=== PATIENT | female | born 1980 | race Caucasian/White ===

== ENCOUNTER 2020-04-18 13:44 | Outpatient (REF) | payer MEDICAID, SELFPAY ==
--- NOTE | 2020-04-18 | MM_ITS ---
EXAMINATION: MM DIAGNOSTIC DIGITAL BREAST TOMOSYNTHESIS, RIGHT CLINICAL INFORMATION: Right breast calcifications The lifetime risk of breast cancer based on the Tyrer-Cuzick Model is 10.8%. COMPARISON: Mammography: October 14, 2008 and studies dating back to September 26, 2016 TECHNIQUE: Digital breast tomosynthesis is performed in both the craniocaudal and mediolateral oblique views along with computer-aided detection (CAD). Synthesized 2D images are generated from the tomosynthesis. Spot magnification views performed in craniocaudal and 90 degree mediolateral views. FINDINGS: The breasts are heterogeneously dense, which may obscure small masses (ACR BI-RADS breast composition Category c). There is a stable parenchymal pattern within the right breast. There is a stable appearance of the calcifications mid breast 12:00 position. Results are provided to the patient at time of visit by the technologist. MM/MM tomosynthesis diagnostic RT IMPRESSION: There are no significant changes from prior study. ASSESSMENT: BI-RADS 3: Probably Benign RECOMMENDATION: Diagnostic mammography in 6 months. This patient's information was entered into a reminder system with a target due date for their next mammogram.
== END 2020-04-18 13:45 | disposition home or self-care (01) ==
LOC: HO.MAMMO 13:44
PROVIDERS: Visit Provider Internal Medicine
DX: R92.1 Mammographic calcification found on diagnostic imaging of breast (principal)
CPT/HCPCS: 77061; 77065

== ENCOUNTER 2020-06-06 10:46 | Outpatient (REF) | payer MEDICAID, SELFPAY | END 2020-06-06 10:47 | disposition home or self-care (01) | LOC: HO.LAB 10:46 | PROVIDERS: Visit Provider Internal Medicine | DX: Z20.828 Contact with and (suspected) exposure to other viral communicable diseases (principal) | CPT/HCPCS: C9803; U0003 ==

== ENCOUNTER → 2020-07-06 10:16 | Outpatient (BNVA) | payer MEDICAID, SELFPAY | PROVIDERS: PCP Internal Medicine; Visit Provider Physician Assistant | DX: Z01.818 Encounter for other preprocedural examination (principal); E66.01 Morbid (severe) obesity due to excess calories; E89.2 Postprocedural hypoparathyroidism; F41.9 Anxiety disorder, unspecified; F32.9 Major depressive disorder, single episode, unspecified; K29.70 Gastritis, unspecified, without bleeding; Z68.41 Body mass index [BMI] 40.0-44.9, adult; Z86.69 Personal history of other diseases of the nervous system and sense organs; Z98.890 Other specified postprocedural states | CPT/HCPCS: 99202 ==

== ENCOUNTER → 2020-07-08 08:27 | Outpatient (BNVA) | payer MEDICAID, SELFPAY | PROVIDERS: PCP Internal Medicine; Visit Provider Surgery ==

== ENCOUNTER 2020-07-13 12:13 | Outpatient (REF) | payer MEDICAID, SELFPAY ==
--- NOTE | 2020-07-13 12:40 | XR_ITS ---
EXAMINATION: XR CHEST CLINICAL INFORMATION: Obesity COMPARISON: None TECHNIQUE: 2 views of the chest were obtained. FINDINGS: No significant abnormality is noted involving the heart, lungs, mediastinum, bony thorax or soft tissues. XR/XR chest 2V IMPRESSION: Unremarkable examination.
--- NOTE | 2020-07-13 13:39 | ECG_ITS ---
Test Reason : PREOP Blood Pressure : / mmHG Vent. Rate : 060 BPM Atrial Rate : 060 BPM P-R Int : 150 ms QRS Dur : 090 ms QT Int : 428 ms P-R-T Axes : 060 026 025 degrees QTc Int : 428 ms Normal sinus rhythm Normal ECG No previous ECGs available Referred By: Desiree Harrison Electronically Signed By:LEANDER SOUSA MD
[2020-07-13 14:02] LABS: MANUAL DIFF FLAG NO
[2020-07-13 14:19] LABS: Basophils Percent Auto 0.5 % (0-2); Eosinophils Absolute Auto 0.1 X10*3/uL (0.0-0.4); Eosinophils Percent Auto 0.8 % (0-4); Hematocrit 41.3 % (37-47); Imm Gran Abs Auto 0.01 X10*3/uL (0.00-0.03); Imm Gran Pct Auto 0.2 % (0.0-0.4); Lymphocytes Absolute Auto 1.9 X10*3/uL (1.2-4.9); Lymphocytes Percent Auto 29.1 % (20-40); Mean Corpuscular HGB Conc 33.9 g/dl (31.0-35.0); Mean Corpuscular Hemoglobin 30.3 pg (27.0-33.0); Mean Corpuscular Volume 89.4 fL (80-98); Mean Platelet Volume 10.4 fL (9.4-12.3); Monocytes Absolute Auto 0.6 X10*3/uL (0.1-1.2); Monocytes Percent Auto 9.2 % (2-11); Neutrophils Absolute Auto 3.9 X10*3/uL (2.0-8.3); Neutrophils Percent Auto 60.2 % (45-73); Platelet Count 319 X10*3/uL (160-400); Red Blood Count 4.62 X10*6/uL (4.20-5.50); Red Cell Distribution Width 11.6 % (11.0-16.0); White Blood Count 6.4 X10*3/uL (4.8-10.8)
[2020-07-13 14:21] LABS: Estimated Average Glucose 94 mg/dL; Hemoglobin A1c % 4.9 %
[2020-07-13 14:38] LABS: Alanine Aminotransferase 25 U/L (0-31); Albumin Level 4.6 g/dL (3.5-5.0); Alkaline Phosphatase 75 U/L (39-117); Anion Gap 13 (12-20); Aspartate Amino Transferase 23 U/L (5-31); Bilirubin Total 0.6 mg/dL (0.0-1.0); Blood Urea Nitrogen 12 mg/dL (9-16); C Reactive Protein 0.37 mg/dL (< or = 0.50); Calcium 9.7 mg/dL (8.4-10.2); Carbon Dioxide 27 mmol/L (22-29); Chloride 105 mmol/L (96-108); Cholesterol 179 mg/dL; Estimated Glomerular Filt Rate > 60; Glucose Random 81 mg/dL (60-115); HDL Cholesterol 45 mg/dL; LDL Cholesterol Calculated 125 mg/dl; Sodium 141 mmol/L (135-145); Total Protein 7.5 g/dL (6.5-8.0); Triglycerides 49 mg/dL
[2020-07-13 14:58] LABS: Vitamin B12 313 pg/mL (200-900)
[2020-07-13 15:00] LABS: Ferritin 142 ng/mL (10-122); TSH reflex Free T4 0.71 uIU/mL (0.32-4.0); Vitamin D 25-OH Total 17.5 ng/mL (>30)
[2020-07-14 09:57] LABS: Insulin Level Total 3.8 uIU/mL
[2020-07-14 12:47] LABS: Calcium (PTHI) 9.9 mg/dL (8.6-10.2); PTHI 60 pg/mL (14-64)
[2020-07-15 23:52] LABS: Zinc 87 mcg/dL (60-130)
[2020-07-16 23:22] LABS: Vitamin A 30 mcg/dL (38-98)
[2020-07-17 12:57] LABS: Vitamin B1 9 nmol/L (8-30)
== END 2020-07-13 12:14 | disposition home or self-care (01) ==
LOC: HO.LAB 12:13
PROVIDERS: PCP Internal Medicine; Visit Provider Physician Assistant
DX: Z01.818 Encounter for other preprocedural examination (principal); E66.01 Morbid (severe) obesity due to excess calories; Z68.41 Body mass index [BMI] 40.0-44.9, adult
CPT/HCPCS: 36415; 71046; 80053; 80061; 82306; 82607; 82728; 83036; 83525; 83970; 84425; 84443; 84590; 84630; 85025; 86140; 93005

== ENCOUNTER 2020-07-19 09:45 | Outpatient (REF) | payer MEDICAID, SELFPAY ==
--- NOTE | ~2020-07-19 | FL_ITS ---
EXAMINATION: XR GI SERIES CLINICAL INFORMATION: Preop evaluation. Obesity. COMPARISON: None. TECHNIQUE: Routine upper GI air-contrast study was performed. FINDINGS: Following oral administration of thick barium and effervescent granules, there is normal propagation of bolus from the oral cavity through the pharynx and esophagus and into the stomach without any evidence of obstruction, narrowing or stricture. The course, caliber and peristalsis in the stomach, duodenal bulb and sweep are normal. There is barium flocculation and increased secretions in the stomach from gastric acidity. No gastric erosions or duodenal ulceration seen. There is mild gastroesophageal reflux without hiatal hernia in supine lying position. FLUOROSCOPY TIME: 1.0 minutes. DOSE AREA PRODUCT: 43.16 uGy-m2 (microgray-meter squared). FL/FL upper GI series IMPRESSION: Mild gastroesophageal reflux without hiatal hernia. Suspect gastric acidity.
--- NOTE | ~2020-07-19 | US_ITS ---
EXAMINATION: US COMPLETE ABDOMEN WITH LIVER ELASTOGRAPHY CLINICAL INFORMATION: Bariatric service evaluation. Z01.818. COMPARISON: Noncontrast CT abdomen and pelvis 04/04/2018. TECHNIQUE: Real-time imaging of the abdominal viscera. Noninvasive ultrasound liver fibrosis assessment is performed using Hellen ElastPQ point quantification shear wave elastography (pSWE) with a C5-2 MHz transducer. Multiple elastography samples are obtained. FINDINGS: PANCREAS: The visualized pancreas is unremarkable. The body and tail are partly obscured by bowel gas and not completely imaged. There is no pancreatic ductal distention in the visualized portion. ABDOMINAL AORTA: The proximal, middle, and distal aortic segments are normal in caliber. INFERIOR VENA CAVA: Visualized portions are normal. LIVER: Normal. The liver demonstrates normal size, contour and echogenicity. No focal lesion or intrahepatic biliary duct dilatation. The right lobe measures 15.7 cm in length. The left lobe measures 10.1 cm in length. Portal flow is towards the liver (hepatopetal). Shear wave liver elastography median stiffness is 1.16 m/s (reference: normal median stiffness is 1.3 m/s or less). IQR/median stiffness to assess sampling precision is 0.22 (reference: optimal IQR/median stiffness is 0.15 or less). GALLBLADDER: Normal. The gallbladder is physiologically distended without evidence of stones, sludge, polyps, wall thickening or pericholecystic fluid. COMMON BILE DUCT: Normal in caliber measuring 0.3 cm in diameter. RIGHT KIDNEY: Normal. No hydronephrosis. No renal calculi or focal parenchymal lesions. The kidney measures 11.2 cm in maximum dimension. LEFT KIDNEY: Normal. No hydronephrosis. No renal calculi or focal parenchymal lesions. The kidney measures 11.3 cm in maximum dimension. SPLEEN: Normal. The spleen measures 10.1 cm in maximum dimension. FREE FLUID: None. US/US abdomen comp w elastography IMPRESSION: 1. Liver normal in size and echogenicity. 2. Liver elastography: Although measurements suggest a high probability of normal liver stiffness, there is statistical variability of the sampling which decreases accuracy. 3. No cholelithiasis or ductal dilatation. 4. Bowel gas obscures portions pancreatic body and tail.
== END 2020-07-19 09:46 | disposition home or self-care (01) ==
LOC: HO.US 09:45
PROVIDERS: PCP Internal Medicine; Visit Provider Surgery
DX: Z01.818 Encounter for other preprocedural examination (principal); E66.01 Morbid (severe) obesity due to excess calories; Z68.41 Body mass index [BMI] 40.0-44.9, adult; K21.9 Gastro-esophageal reflux disease without esophagitis
CPT/HCPCS: 74240; 76705; 76981

== ENCOUNTER 2020-07-22 14:06 | Outpatient (REF) | payer MEDICAID, SELFPAY ==
[2020-07-23 13:51] LABS: H Pylori Breath Test NOT DETECTED (NOT DETECTED)
== END 2020-07-22 14:07 | disposition home or self-care (01) ==
LOC: HO.LNP 14:06
PROVIDERS: PCP Internal Medicine; Visit Provider Surgery
DX: Z11.0 Encounter for screening for intestinal infectious diseases (principal)
CPT/HCPCS: 83013; 99211

== ENCOUNTER → 2020-08-03 08:24 | Outpatient (BNVA) | payer MEDICAID, SELFPAY | PROVIDERS: PCP Internal Medicine; Visit Provider Surgery ==

== ENCOUNTER 2020-08-19 12:25 | Outpatient (REF) | payer MEDICAID, SELFPAY | END 2020-08-19 12:26 | disposition home or self-care (01) | LOC: HO.LAB 12:25 | PROVIDERS: Visit Provider Internal Medicine | DX: Z20.822 Contact with and (suspected) exposure to COVID-19 (principal) | CPT/HCPCS: 36415; C9803; U0003; U0005 ==

== ENCOUNTER → 2020-08-22 08:20 | Outpatient (BNVA) | payer MEDICAID, SELFPAY | PROVIDERS: PCP Internal Medicine; Visit Provider Surgery ==

== ENCOUNTER 2020-08-24 13:06 | Outpatient (REF) | payer MEDICAID, SELFPAY | END 2020-08-24 13:07 | disposition home or self-care (01) | LOC: HO.LAB 13:06 | PROVIDERS: Visit Provider Internal Medicine | DX: Z20.822 Contact with and (suspected) exposure to COVID-19 (principal) | CPT/HCPCS: 36415; C9803; U0003; U0005 ==

== ENCOUNTER → 2020-09-14 08:14 | Outpatient (BNVA) | payer MEDICAID, SELFPAY | PROVIDERS: PCP Internal Medicine; Visit Provider Surgery ==

== ENCOUNTER → 2020-10-10 08:22 | Outpatient (BNVA) | payer MEDICAID, SELFPAY | PROVIDERS: PCP Internal Medicine; Visit Provider Surgery ==

== ENCOUNTER → 2020-10-31 08:17 | Outpatient (BNVA) | payer MEDICAID, SELFPAY | PROVIDERS: PCP Internal Medicine; Visit Provider Surgery | DX: E66.9 Obesity, unspecified (principal); Z68.36 Body mass index [BMI] 36.0-36.9, adult | CPT/HCPCS: 97802 ==

== ENCOUNTER → 2020-11-16 08:15 | Outpatient (BNVA) | payer MEDICAID, SELFPAY | PROVIDERS: PCP Internal Medicine; Visit Provider Dietitian, Registered | DX: E66.9 Obesity, unspecified (principal); Z68.36 Body mass index [BMI] 36.0-36.9, adult | CPT/HCPCS: 97803 ==

== ENCOUNTER → 2020-11-24 07:51 | Outpatient (BNVA) | payer MEDICAID, SELFPAY | PROVIDERS: PCP Internal Medicine; Visit Provider Surgery ==

== ENCOUNTER → 2020-12-09 09:00 | Outpatient (BNVA) | payer MEDICAID, SELFPAY | PROVIDERS: PCP Internal Medicine; Visit Provider Physician Assistant ==

== ENCOUNTER → 2020-12-12 07:51 | Outpatient (BNVA) | payer MEDICAID, SELFPAY | PROVIDERS: PCP Internal Medicine; Visit Provider Surgery | DX: E66.9 Obesity, unspecified (principal); K29.70 Gastritis, unspecified, without bleeding; R11.0 Nausea; Z01.818 Encounter for other preprocedural examination ==

== ENCOUNTER 2020-12-15 11:11 | Outpatient (REF) | payer MEDICAID, SELFPAY ==
[2020-12-15 12:52] LABS: MANUAL DIFF FLAG NO
[2020-12-15 12:57] LABS: Basophils Percent Auto 0.4 % (0-2); Eosinophils Absolute Auto 0.1 X10*3/uL (0.0-0.4); Eosinophils Percent Auto 1.2 % (0-4); Hematocrit 40.9 % (37-47); Hemoglobin 13.8 g/dl (12.0-16.0); Imm Gran Abs Auto 0.02 X10*3/uL (0.00-0.03); Imm Gran Pct Auto 0.4 % (0.0-0.4); Lymphocytes Absolute Auto 1.9 X10*3/uL (1.2-4.9); Lymphocytes Percent Auto 33.7 % (20-40); Mean Corpuscular HGB Conc 33.7 g/dl (31.0-35.0); Mean Corpuscular Hemoglobin 30.5 pg (27.0-33.0); Mean Corpuscular Volume 90.3 fL (80-98); Mean Platelet Volume 10.2 fL (9.4-12.3); Monocytes Absolute Auto 0.6 X10*3/uL (0.1-1.2); Monocytes Percent Auto 10.8 % (2-11); Neutrophils Percent Auto 53.5 % (45-73); Platelet Count 301 X10*3/uL (160-400); Red Blood Count 4.53 X10*6/uL (4.20-5.50); White Blood Count 5.7 X10*3/uL (4.8-10.8)
[2020-12-15 13:10] LABS: INTERNATIONAL NORM RATIO 1.1 (0.9-1.1)
[2020-12-15 13:13] LABS: Partial Thromboplastin Time 42.4 SEC (24.1-38.0)
[2020-12-15 13:26] LABS: Estimated Average Glucose 100 mg/dL; Hemoglobin A1c % 5.1 %
[2020-12-15 13:28] LABS: Alanine Aminotransferase 19 U/L (0-31); Albumin Level 4.6 g/dL (3.5-5.0); Alkaline Phosphatase 77 U/L (39-117); Anion Gap 13 (12-20); Aspartate Amino Transferase 16 U/L (5-31); Bilirubin Total 0.8 mg/dL (0.0-1.0); Blood Urea Nitrogen 16 mg/dL (9-16); C Reactive Protein 0.11 mg/dL (< or = 0.50); Calcium 10.2 mg/dL (8.4-10.2); Carbon Dioxide 26 mmol/L (22-29); Chloride 105 mmol/L (96-108); Cholesterol 180 mg/dL; Estimated Glomerular Filt Rate > 60; Glucose Random 88 mg/dL (60-115); HDL Cholesterol 54 mg/dL; LDL Cholesterol Calculated 111 mg/dl; Sodium 140 mmol/L (135-145); Total Protein 7.5 g/dL (6.5-8.0); Triglycerides 75 mg/dL
[2020-12-16 09:37] LABS: Insulin Level Total 5.4 uIU/mL
== END 2020-12-15 11:12 | disposition home or self-care (01) ==
LOC: HO.LAB 11:11
PROVIDERS: PCP Internal Medicine; Visit Provider Surgery
DX: E66.9 Obesity, unspecified (principal)
CPT/HCPCS: 36415; 80053; 80061; 83036; 83525; 84443; 85025; 85610; 85730; 86140; 86850; 86900; 86901

== ENCOUNTER 2020-12-22 06:00 | Inpatient (IN) | payer MEDICAID, SELFPAY ==
[2020-12-13 10:05] VITALS: BMI 36.0
--- NOTE | 2020-12-21 08:37 | HO.ANESPROP2 ---
Documented by User: Romina Thomas 12/21/20 08:39 HPI - Anesthesia Eval Consult details Narrative: 40yo F for Gastrectomy Sleeve, EGD, Poss Diaphragmatic Hernia, Poss Ventral Hernia, Poss open PMFSH Active Problems Active Problems: All Active Problems (Updated 12/13/20 @ 10:05 by Julia Warner) Morbid obesity with BMI of 40.0-44.9, adult (Acute) Pre-op evaluation (Acute) Hx of migraines (Acute) Anxiety and depression (Acute) Gastritis (Acute) Vitamin D deficiency (Acute) Vitamin A deficiency (Acute) Obesity (Acute) BMI 38.0-38.9,adult (Acute) BMI 37.0-37.9, adult (Acute) BMI 36.0-36.9,adult (Acute) BMI over 35 (Acute) Past Medical History Medical History Depression GERD (gastroesophageal reflux disease) Hx of bipolar disorder Panic attack Family History Family History Mother Heart disease Arthritis Father Liver disease Herniated disc Brother No problems noted. Brother No problems noted. Brother No problems noted. Sister Diabetes Sister Migraine Sister HIV disease Sister No problems noted. Sister No problems noted. Daughter Asthma Son No problems noted. Surgical History Surgical History H/O parathyroidectomy History of endometrial ablation History of esophagogastroduodenoscopy (EGD) History of tonsillectomy and adenoidectomy Hx of tubal ligation Social History Social History Household Members: Family Housing: Apartment Are you a primary patient care nursing assistant to a significant other at home: No Do you presently have visiting nurse or other home services: No Alcohol intake: never Patient Tobacco Use Status: Former Tobacco user Quit Date: 2018 Tobacco use type: Cigarette Use of substances other than those prescribed or required for medical reasons: No Have you been hit, kicked, punched, or otherwise hurt by someone within the past year? If so, by whom?: No Are you DNR?: No Advance Directives: No Advance Directives Information Provided: No Advance Directives on File: No Recently lost weight without trying: No Eating poorly because of decreased appetite: No Nutrition Risks: No Nutritional Risk Patient : No FDLMP: 11/20/20 : No Poor oral hygiene: No Meds Allergies Allergy/AdvReac Type Severity Reaction Status Date / Time No Known Allergies Allergy Verified 12/13/20 10:09 Home Medications Medication Instructions Recorded Confirmed Last Taken Type omeprazole 20 mg capsule,delayed 20 mg PO DAILY 07/06/20 07/08/20 Unknown History release paroxetine HCl 40 mg tablet 40 mg PO DAILY 07/06/20 12/13/20 Unknown History prazosin 1 mg capsule 1 mg PO BEDTIME 07/06/20 12/13/20 Unknown History Exam Exam Date and Time: December 21, 2020 0837 Height,Weight and Vital Signs: Height 5 ft 4.5 in Weight 96.729 kg Pertinent Lab Results Pertinent Lab Results: Laboratory Tests 12/15/20 11:32 Blood Type O Negative Antibody Screen NEGATIVE Laboratory Tests 12/15/20 12/15/20 11:32 11:32 WBC 5.7 Hgb 13.8 Hct 40.9 Plt Count 301 Sodium 140 Potassium 4.0 Chloride 105 Carbon Dioxide 26 BUN 16 Creatinine 0.74 Laboratory Tests 12/15/20 12/15/20 12/15/20 11:32 11:32 11:32 PT 13.0 INR 1.1 APTT 42.4 H Hemoglobin A1c % 5.1 Calcium 10.2 Total Bilirubin 0.8 AST 16 ALT 19 Alkaline Phosphatase 77 C-Reactive Protein 0.11 Total Protein 7.5 Albumin 4.6 TSH 0.70 Narrative Narrative: EKG 07/2020 Vent. Rate : 060 BPM Atrial Rate : 060 BPM P-R Int : 150 ms QRS Dur : 090 ms QT Int : 428 ms P-R-T Axes : 060 026 025 degrees QTc Int : 428 ms Normal sinus rhythm Normal ECG No previous ECGs available Assessment and Plan Assessment Anesthesia Assessment: Chart Reviewed Documented by User: Armando Callejas 12/22/20 11:51 PMFSH Past Medical History Medical History Depression GERD (gastroesophageal reflux disease) Hx of bipolar disorder Panic attack Family History Family History Mother Heart disease Arthritis Father Liver disease Herniated disc Brother No problems noted. Brother No problems noted. Brother No problems noted. Sister Diabetes Sister Migraine Sister HIV disease Sister No problems noted. Sister No problems noted. Daughter Asthma Son No problems noted. Surgical History Surgical History H/O parathyroidectomy History of endometrial ablation History of esophagogastroduodenoscopy (EGD) History of tonsillectomy and adenoidectomy Hx of tubal ligation Social History Social History Household Members: Family Housing: Apartment Are you a primary patient care nursing assistant to a significant other at home: No Do you presently have visiting nurse or other home services: No Alcohol intake: never Patient Tobacco Use Status: Former Tobacco user Quit Date: 2018 Tobacco use type: Cigarette Use of substances other than those prescribed or required for medical reasons: No Have you been hit, kicked, punched, or otherwise hurt by someone within the past year? If so, by whom?: No Are you DNR?: No Advance Directives: No Advance Directives Information Provided: No Advance Directives on File: No Recently lost weight without trying: No Eating poorly because of decreased appetite: No Nutrition Risks: No Nutritional Risk Patient : No FDLMP: 11/20/20 : No Poor oral hygiene: No Meds Allergies Allergy/AdvReac Type Severity Reaction Status Date / Time No Known Allergies Allergy Verified 12/13/20 10:09 Home Medications Medication Instructions Recorded Confirmed Last Taken Type omeprazole 20 mg capsule,delayed 20 mg PO DAILY 07/06/20 07/08/20 Unknown History release paroxetine HCl 40 mg tablet 40 mg PO DAILY 07/06/20 12/13/20 Unknown History prazosin 1 mg capsule 1 mg PO BEDTIME 07/06/20 12/13/20 Unknown History Exam Airway Mallampati Class: II TM Dist: >3cm Neck ROM: Full Loose/Missing/Broken Teeth: No Heart: rrr+[id number] Lungs: cta b/l Assessment and Plan Assessment Anesthesia Assessment: Anesthesia Plan Discussed, PAT Visit and Chart Reviewed Final Anesthetic Review NPO: Yes ASA Class: III Final Preanesthetic Review: No Changes in Pt Med Stat, Meds/Allgs Chart Reviewed, Consent Obtained/Reviewed and Anes Risks/Benef Reviewed Patient Risk: Intermediate Procedure Risk: Low Assessment/Block/Sedation in SS: Assess/Block/Sedation-SS Anesthetic Plan Anesthetic Plan: GA and Agree w/ Assess. and Plan Disposition: Standard PACU
--- NOTE | 2020-12-21 23:14 | MHC.SHP ---
Pre-Procedural Eval Section A Date of Service: 12/21/20 The patient is an INPATIENT: Yes The History & Physical has been completed within 30 days and I have reviewed it.: Yes Section B Chief Complaint: Obesity Details of Present Illness: obesity Relevant Family History (Specify if Yes): No Relevant Social History: None Present Medications: see Short Stay Collaborative assessment Medical History: No relevant PMH History of Previous Operations: No relevant previous surgery Allergies: Allergies Allergy/AdvReac Type Severity Reaction Status Date / Time No Known Allergies Allergy Verified 12/13/20 10:09 Review of Systems Sugical H&P ROS: Negative: Constitution, Cardiovascular, Respiratory, Neurological, Psychiatric, Hem-Onc, Allergic/Immunologic, Gastrointestinal, Genitourinary, Musculoskeletal, Integumentary, Endocrine and Eyes/Ears/Nose/Throat Exam Surgical H&P Exam: Normal: HEENT, Normal: Heart, Normal: Lungs, Normal: Extremities, Normal: Abdomen, Normal: Skin and Normal: Neurological Plan Diagnosis/Plan: Unchanged I have reviewed the history and physical and performed a pertinent physical examination on my patient. No changes have occurred unless specified.
[2020-12-22] VITALS (12 sets, daily range): BP systolic 110–132; BP diastolic 57–84; PULSE 54–81; RESP 15–18; TEMP 36.2–36.6; O2SAT 95–100
[2020-12-22 09:45] LABS: COVID-19 Test Negative (Negative)
[2020-12-22] MEDS: Lactated Ringers 1,000 ML 100 ML IVCONT (10:25)
[2020-12-22] MEDS: Lactated Ringers 1,000 ML 999 ML IV (10:26)
--- NOTE | 2020-12-22 15:15 | PM.OP ---
Brief Operative Note Date of Service: 12/22/20 Pre-op diagnosis: Severe obesity and comorbidities (see below) Post-op diagnosis: same (& diaphragmatic hernia) Procedure: INITIAL PATIENT BMI ON PRESENTATION AT OUR OFFICE: 40.4 kg/m2 LAST BMI BEFORE SURGERY: 35.4 kg/m2 COMORBIDITIES: GERD, depression, insomnia, back pain, knee pain The patient participated in an intensive weekly lifestyle intervention and exercise program during which the patient has lost between the initial office visit and the last preoperative visit 26.6 lbs, or 11.5% of initial actual body weight. The patient met the BMI-criteria for bariatric surgery based on the BMI on initial presentation. The patient should not be penalized for achieving such weight loss because it is not sustainable long-term without surgical intervention and it was achieved in preparation for bariatric surgery under my direction and based on my published research ([email or web address] and [email or web address]/[email or web address]/pdf) that a 10% preoperative weight loss improves long-term weight loss after surgery and reduces perioperative complications. Insurance carriers such as [facility] have endorsed my recommendations and have included in their policies criteria to include a 10% preoperative weight loss requirement. PROCEDURE: Esophago-gastroscopy, laparoscopic repair of incarcerated diaphragmatic hernia, laparoscopic lysis of adhesions, laparoscopic sleeve gastrectomy and laparoscopic gastropexy INDICATIONS: This is a 40 year-old female who was electively scheduled for laparoscopic, possibly open sleeve gastrectomy. The risks and complications of the procedure were discussed with the patient in advance, particularly the possibility of ; pulmonary embolism; staple line leak; bleeding; GERD; cardiac, pulmonary, or renal complications; as well as long-term problems such as insufficient weight loss, vitamin deficiency, strictures, or ulcers. The patient understood all the risks, and was in agreement to proceed with surgery. DESCRIPTION OF PROCEDURE: After informed consent was obtained from the patient, the patient was given preoperative antibiotics, and was transferred to the operating room. After successful induction of general anesthesia, pneumatic compressive devices were placed on both lower extremities. An upper endoscopy was performed next. The oropharynx and esophagus appeared to be within normal limits. There was a diaphragmatic hernia present of moderate size consistent with the findings of the preoperative upper GI. The stomach was entered. Then after all fluid and air were suctioned and the stomach was fully decompressed, the scope was withdrawn and secured in the mid esophagus. The patient was then prepped and draped in the usual sterile manner, and abdominal access was established at the right upper quadrant with the Neal technique. A 12 mm blunt port was inserted, and the abdomen was insufflated with CO2 to a pressure of 15 mmHg. Under direct visualization, additional ports were placed, specifically two 5 mm Versi-step ports to the left upper quadrant, and a 5 mm Versi-Step port to the right upper quadrant. 1% lidocaine plan was used to infiltrate all port sites as well as all fascia defects. Using the EndoClose suture passer device, I placed a #1 Polysorb tie across the falciform ligament in order to retract it up against the abdominal wall and prevent injury of the ligament with our instruments during the procedure. Following that, the patient was placed in a steep reverse Trendelenburg position. An additional 5 mm port was placed to the right flank for the Mediflex retractor that was used to retract the left lobe of the liver. The gastro-esophageal fat pad was opened with the ultrasonic device (Thunderbeat, Olympus) and the anterior esophagus and hiatus were exposed. The angle of His was opened with the ultrasonic device the fundus of the stomach from any diaphragmatic and splenic attachments. I then opened the gastrocolic ligament between the transverse colon and the greater curvature of the stomach with the ultrasonic device to enter the lesser sac and facilitate the ligation of the short gastric vessels. I started at a mid-point along the greater curvature and using the Thunderbeat, all short gastric vessels were divided all the way to the angle of His until the left lauryn was completely dissected at its entirety. I then divided the gastro-colic ligament distally to a distance of about 3-4 cm proximal to the esophagus. There were extensive congenital adhesions between the pancreas and posterior gastric wall. Those were lysed completely with the ultrasonic device. Adhesiolysis took approximately 45 min to complete. There was an obvious significant-sized hiatal hernia. I continued dissecting along the hiatus toward the left lauryn and the angle of His. I fully mobilized the fat pad that was incarcerated in the hernia. I then continued by dissecting even further into the posterior retro-esophageal space all the way to the angle of His. I continued to mobilize the esophagus into the mediastinum circumferentially. Both vagal nerves were seen and preserved. At that point, I was able to have at least 3 to 5 cm of esophagus into the abdomen. After I completely mobilized the esophagus from both the left and right lauryn and I had a good mobilization of the esophagus circumferentially, I closed the hernia defect with three interrupted #0 Surgidac suture using the Endo Stitch device, two of which were placed posterior and one anterior to the esophagus. The stomach was then divided transversely with one Endo ASHLI-45 purple load, one ASHLI-45 orange load and four ASHLI-60 articulating orange loads with the AEON stapler and loads. Every effort was made that the gastric sleeve had a tubular shape and an even caliber throughout. Once the sleeve resection was completed, the staple line of the gastric sleeve was reinforced with Hemoclips. The resected stomach was retrieved without difficulty from the Neal port. A gastropexy was then performed in order to prevent postoperative GERD and partial gastric volvulus. Several interrupted 2.0 Surgidac sutures were placed between the sleeve's staple line and the previously divided greater omentum and gastro-colic ligament using the Endo-Stitch device. An upper endoscopy was performed. There was no narrowing at the GE junction. The scope was easily advanced all the way to the pylorus which was clearly visualized. There was no narrowing anywhere and the sleeve's caliber was even throughout. The sleeve's staple line was inspected and there was no evidence of ischemia, bleeding or dehiscence. At that point the gastroscope was withdrawn from the patient?s mouth while we were decompressing the bowel and the stomach from any remaining air. I looked into the lesser sac to see how the sleeve was situating and it was situating well. There was no bleeding from the staple line, spleen, or short gastric vessels. The Mediflex retractor was removed, and the undersurface of the liver was inspected and there was no bleeding. The patient was placed in supine position. I closed the fascial defect of the 12 mm port site with a figure of eight #1 Polysorb suture. Then 100 cc 0.25 % Marcaine plain with 10 mg of Dexamethasone were used to infiltrate the fascial closure as well as all skin incisions. At this point, the abdomen was deflated, all ports were removed under direct vision, and no bleeding was noted from any of the port sites. The skin incisions were irrigated with saline and were closed with 4-0 absorbable monofilament sutures. Steri-Strips and OpSites were used to cover all incisions. The patient was extubated and was transferred in stable condition to the recovery room for further care. I was present and performed all coffey parts of the procedure. Ms. Harrison was the business office assistant. There were no residents to assist with this case. Gil Freeman MD, PhD, FACS Surgeon: Kashmir Freeman MD Anesthesia: GETA, local and other (TAP block) Was an Industrial Registered Nurse used for this Procedure?: Yes Industrial Registered Nurse: Desiree Harrison Estimated blood loss (mL): 10 IV fluids (mL): 3,000 Urine output (mL): 0 (No [place] to record) Pathology: other (Stomach) Condition: stable Disposition: PACU
--- NOTE | 2020-12-22 15:24 | PM.PNGS ---
Subjective Subjective Date of Service: 12/23/20 Interval history: Patient had mild incisional pain but was able to ambulate and use the incentive spirometer. She is tolerating phase 1 bariatric diet. Physical Exam Vital Signs: Vital Signs: Last Vital Signs Temp 97.1 F 12/22/20 15:15 Pulse 64 12/22/20 15:20 Resp 16 12/22/20 15:20 BP 127/78 12/22/20 15:20 Pulse Ox 100 12/22/20 15:20 Body Mass Index 36.0 GI: Inspection: Yes normal to inspection, Yes incision (clean, dry and intact) and Yes obesity Extrem: Right lower extremity: normal to inspection (no calf tenderness) Left lower extremity: normal to inspection (no calf tenderness) Progress Note: A&P Assessment and plan (1) Obesity: Status: Acute (2) BMI over 35: Status: Acute (3) S/P laparoscopic sleeve gastrectomy: Status: Acute Assessment and Plan: s/p laparoscopic sleeve gastrectomy, gastropexy and diaphragmatic hernia repair Doing well Check am labs. If OK, will discharge home (4) Status post repair of paraesophageal diaphragmatic hernia: Status: Acute (5) Diaphragmatic hernia: Status: Acute (6) GERD (gastroesophageal reflux disease): Status: Acute (7) Anxiety and depression: Status: Acute (8) Back pain: Status: Acute (9) Knee pain: Status: Acute (10) Congenital intra-abdominal adhesions: Status: Acute Fall Risk Details Current Medications: Current Medications Generic Name Dose Route Start Last Admin Trade Name Freq PRN Reason Stop Dose Admin Fentanyl 50 mcg 12/22/20 11:51 Fentanyl Citrate/Pf 100 Mcg/2 Ml Vial IVPUSH Q5M PRN Pain, Moderate (Pain Scale 4-6 Hydromorphone HCl 0.5 mg 12/22/20 11:51 Hydromorphone Hcl 0.5 Mg/0.5 Ml Syringe IVPUSH Q5M PRN Pain, Severe (Pain Scale 7-10) Lactated Ringer's 1,000 mls @ 100 mls/hr 12/22/20 07:00 12/22/20 10:25 Lr IVCONT 100 mls/hr .Q10H ALON Administration Promethazine HCl 12.5 mg/ 50.5 mls @ 202 mls/hr 12/22/20 11:51 Sodium Chloride IV ONCE PRN Nausea and Vomiting Ondansetron HCl 4 mg 12/22/20 11:51 Ondansetron Hcl 4 Mg/2 Ml Vial IVPUSH ONCE PRN Nausea and Vomiting Oxycodone HCl 10 mg 12/22/20 11:51 Oxycodone Hcl Immed Release 5 Mg Tablet PO ONCE PRN Pain, Mild (Pain Scale 1-3) Time Spent With Patient Time: Total time spent is greater than 50% in coordination of care (as documented) at patient's floor/unit and/or counseling patient: Time with patient: less than 15 minutes Procedures Date of Service Date of Service: 12/23/20 Quality Stroke Does the patient have a stroke diagnosis?: No VTE Prior VTE?: No VTE Risk Level:: Surgical - moderate VTE Device Contraindication: N/A - Device Ordered VTE Drug Contraindication: Treatment Not Indicated
--- NOTE | 2020-12-22 15:26 | P.DS_ITS ---
DS: Providers Provider Date of Service: 12/23/20 Date of admission: 12/21/20 23:16 Primary care physician: Magaly Maldonado MD DS: Medications Discharge Medications Home Medications: Home Medications Medication Instructions Recorded Confirmed omeprazole 20 mg capsule,delayed 20 mg PO DAILY 07/06/20 07/08/20 release paroxetine HCl 40 mg tablet 40 mg PO DAILY 07/06/20 12/13/20 prazosin 1 mg capsule 1 mg PO BEDTIME 07/06/20 12/13/20 Previous Rx's Medication Instructions Recorded ondansetron HCl 4 mg tablet 4 mg PO Q12H #20 tab 12/12/20 pantoprazole 40 mg tablet,delayed 40 mg PO DAILY #30 tab 12/12/20 release polyethylene glycol 3350 17 gram 17 g PO DAILY #14 ea 12/12/20 oral powder packet sucralfate 100 mg/mL oral 10 ml PO BID #400 ml 12/12/20 suspension DS: Summary Time Spent with Patient Time attestation: ADMITTING DIAGNOSIS: morbid obesity, panic attacks DISCHARGE DIAGNOSIS: same, s/p laparoscopic sleeve gastrectomy and repair diaphragmatic hernia PAST SURGICAL HISTORY: parathyroidectomy, tubal ligation PROCEDURE: upper endoscopy, laparoscopic sleeve gastrectomy and repair of diaphragmatic hernia hernia DISCHARGE SUMMARY: History of Present Illness: The patient is a 40 year-old woman with a BMI of woman kg/m2 and associated co- morbidities as described above. The patient had extensive work-up,lost 26.2 lbs preoperatively and was electively scheduled for laparoscopic, possible open sleeve gastrectomy and gastropexy. Risks and complications of the surgery were discussed with the patient in advance, particularly the possibility of , pulmonary embolism, anastomotic leak, bleeding, bowel injury, GERD, cardiac, renal or pulmonary complications. The patient understood all the risks and was in agreement with the surgical plan. Hospital Course: The patient underwent an uneventful laparoscopic sleeve gastrectomy with gastropexy and repair of diaphragmatic hernia on the day of admission. Postoperatively, the patient was transferred to the surgical floor. The patient was on IV Acetaminophen and IV dilaudid for pain control. Patient was started on bariatric phase 1 diet POD #0. On postoperative day one, the patient was feeling well without nausea, vomiting, fevers, or tachycardia. The patient had some mild incisional pain. The abdomen was soft. On the morning of postoperative day one, the patient was continued on 1 ounce of water or ice every half hour. During the first day, the patient did fairly well, having some incisional pain, but able to ambulate adequately and to tolerate liquids well. Since the patient is doing well, we decided that the patient was ready to be discharged. The patient was given instructions to follow-up with me next week and to call my office for any fever over 101, persistent abdominal pain, nausea, vomiting, GERD, symptoms of DVT such as calf tenderness, or leg swelling, or pulmonary embolism such as chest pain or shortness of breath. The patient was also instructed to drink 40-60 ounces of liquids per day using the 1-ounce cups. The patient was given prescription for Tylenol for pain, Zofran prn for nausea, and pantoprazole and carafate. The patient was encouraged to ambulate and use the incentive spirometer. The patient was allowed to shower, but no baths, and encouraged to stay active at home. All of these instructions were given to the patient personally. All questions were answered and the patient understood all instructions, the instructions were also given to the patient in print. Total time spent providing and/or coordinating discharge services: 15 Discharge coordination time: Less than 30 minutes Quality: Stroke Does the patient have a stroke diagnosis?: No Physical Exam Vital Signs: Vital Signs: Last Vital Signs Temp 97.1 F 12/22/20 15:15 Pulse 64 12/22/20 15:20 Resp 16 12/22/20 15:20 BP 127/78 12/22/20 15:20 Pulse Ox 100 12/22/20 15:20 Body Mass Index 36.0 DS: Data Data Completed and Pending Pending studies at discharge: Pending at discharge 12/22/20 14:14 Surgical [PTH] Routine Labs on day of discharge: Laboratory Results - last 24 hr 12/22/20 09:25 COVID-19 ([facility]) Negative COVID-19 Clin Com See Note Discharge Plan Discharge Anticipated Discharge Date/Time: 12/23/20 10:23 Patient Disposition: Home, Self-Care Discharge Diagnosis: s/p sleeve gastrectomy Referrals: Magaly Mcrae MD [Primary Care Provider] - 1 Week Discharge Medications: Continued paroxetine HCl 40 mg tablet 40 mg PO DAILY RF: 0 prazosin 1 mg capsule 1 mg PO BEDTIME RF: 0 pantoprazole 40 mg tablet,delayed release (DR/EC) 40 mg PO DAILY Qty: 30 RF: 2 sucralfate 100 mg/mL suspension 10 ml PO BID Qty: 400 RF: 2 ondansetron HCl [Zofran] 4 mg tablet 4 mg PO Q12H Qty: 20 RF: 0 Discontinued omeprazole 20 mg capsule,delayed release(DR/EC) 20 mg PO DAILY RF: 0 polyethylene glycol 3350 [Miralax] 17 gram powder in packet 17 g PO DAILY Qty: 14 RF: 0 Discharge Orders: Discharge Order (Routine); Ordered 12/23/20 Ordered By: Kashmir Freeman Diet: other Activity on Discharge: No heavy lifting Stand Alone Forms: Patient Portal Discharge page Care Plan Goals: weight loss Health Concerns: morbid obesity Plan of Treatment: No tub baths, sex or returning to work until discussed at first post op appointment. No exercise, alcohol, tobacco or illegal drug use. Continue to use incentive spirometer hourly while awake. Walk in home for 5- 10 minutes every 2 hours during the first week. Continue phase 1 diet today and start phase 2 diet tomorrow morning. Follow all instructions in the bariatric handbook and call with any questions. The patient's medical history has been reviewed and they are considered low risk for post op DVT and therefore DVT prophylaxis is not considered necessary. Travel after surgery was reviewed. The patient has not disclosed any travel plans during the first 30 days after surgery and they have been advised that within the first 30 days after surgery any bus, plane, train or car travel over 2 hours in duration is contraindicated due to the possibility of developing blood clots from immobility. Any travel, needs to include periods of ambulation of 10 minutes in duration every 2 hours. The patient was instructed to discuss any plans for travel during this period with their bariatric surgeon. Assessment: stable, pod # 1 s/p sleeve gastrectomy
[2020-12-22] MEDS: Famotidine/PF 20 MG/2 ML VIAL IVPUSH ×2 (15:39→21:52)
[2020-12-22 15:51] LABS: Hematocrit 34.9 % (37-47); Hemoglobin 12.1 g/dl (12.0-16.0)
[2020-12-22 16:10] LABS: Anion Gap 11 (12-20); Blood Urea Nitrogen 7 mg/dL (9-16); Carbon Dioxide 25 mmol/L (22-29); Chloride 109 mmol/L (96-108); Estimated Glomerular Filt Rate > 60; Glucose Random 100 mg/dL (60-115); Potassium 3.8 mmol/L (3.3-5.1); Sodium 141 mmol/L (135-145)
[2020-12-22] MEDS: Lactated Ringers 1,000 ML 125 ML IVCONT (17:48)
[2020-12-23] MEDS: ondansetron HCL 4 MG/2 ML VIAL IVPUSH ×2 (01:16→08:34)
[2020-12-23] MEDS: Lactated Ringers 1,000 ML 125 ML IVCONT ×2 (01:18→08:34)
[2020-12-23 03:04] VITALS: BP 121/62; PULSE 58; RESP 18; TEMP 36.3; O2SAT 98
[2020-12-23] MEDS: HYDROmorphone HCl 0.5 MG/0.5 ML SYRINGE 0.25 MG IVPUSH ×2 (03:31→08:33)
[2020-12-23 06:19] LABS: MANUAL DIFF FLAG NO
[2020-12-23 06:29] LABS: Basophils Percent Auto 0.1 % (0-2); Hematocrit 37.1 % (37-47); Hemoglobin 12.9 g/dl (12.0-16.0); Imm Gran Abs Auto 0.02 X10*3/uL (0.00-0.03); Imm Gran Pct Auto 0.2 % (0.0-0.4); Lymphocytes Absolute Auto 0.6 X10*3/uL (1.2-4.9); Lymphocytes Percent Auto 7.8 % (20-40); Mean Corpuscular HGB Conc 34.8 g/dl (31.0-35.0); Mean Corpuscular Hemoglobin 30.5 pg (27.0-33.0); Mean Corpuscular Volume 87.7 fL (80-98); Mean Platelet Volume 10.6 fL (9.4-12.3); Monocytes Absolute Auto 0.6 X10*3/uL (0.1-1.2); Monocytes Percent Auto 7.4 % (2-11); Neutrophils Absolute Auto 6.9 X10*3/uL (2.0-8.3); Neutrophils Percent Auto 84.5 % (45-73); Platelet Count 273 X10*3/uL (160-400); Red Blood Count 4.23 X10*6/uL (4.20-5.50); Red Cell Distribution Width 11.4 % (11.0-16.0); White Blood Count 8.1 X10*3/uL (4.8-10.8)
[2020-12-23 06:52] LABS: Anion Gap 13 (12-20); Blood Urea Nitrogen 6 mg/dL (9-16); Calcium 9.5 mg/dL (8.4-10.2); Carbon Dioxide 23 mmol/L (22-29); Chloride 108 mmol/L (96-108); Creatinine Clr Calc Pharmacy 124.1; Estimated Glomerular Filt Rate > 60; Glucose Random 107 mg/dL (60-115); Potassium 4.1 mmol/L (3.3-5.1); Sodium 140 mmol/L (135-145)
[2020-12-23 07:16] VITALS: BP 116/54; PULSE 51; RESP 18; TEMP 36.2; O2SAT 96
--- NOTE | 2020-12-23 08:27 | MHC.CM.PN ---
pt lives c her daughter in their home. her daughter can help her is she needs help, this will include a ride home at dc. pt reports that she is independent in her care. she denies the need for vna at dc. dc plan is home no svcs. cm to cont. to follow.
[2020-12-23] MEDS: Famotidine/PF 20 MG/2 ML VIAL IVPUSH (08:34)
[2020-12-23] MEDS: PARoxetine HCL 40 MG TABLET PO (08:34)
--- NOTE | 2020-12-23 16:14 | HO.POSTANES ---
Post Anesthesia Evaluation Post Anesthesia Evaluation Vital Signs: Vital Signs Temp Pulse Resp BP Pulse Ox 12/23/20 07:16 97.2 F 51 18 116/54 L 96 Anesthesia: General Endotracheal-GETA Mental Status: Awake Pain Control: Satisfactory Nausea/Vomiting: None Hydration: Adequate Anesthesia-Related Issues: No Anes. Related Issues
== END 2020-12-23 15:07 | disposition home or self-care (01) | DRG 403 ==
LOC: HO.S3 15:27 → HO.SSSA 03-22 11:31
PROVIDERS: Physician Assistant; Admitting Provider Surgery; PCP Internal Medicine; Visit Provider Surgery
PROC: (CPT 43845; principal; 2020-12-22 11:00)
DX: E66.01 Morbid (severe) obesity due to excess calories (principal); K44.0 Diaphragmatic hernia with obstruction, without gangrene; F32.9 Major depressive disorder, single episode, unspecified; K21.9 Gastro-esophageal reflux disease without esophagitis; F41.9 Anxiety disorder, unspecified; G47.00 Insomnia, unspecified; M54.9 Dorsalgia, unspecified; M25.569 Pain in unspecified knee; K66.0 Peritoneal adhesions (postprocedural) (postinfection); Z20.822 Contact with and (suspected) exposure to COVID-19; Z68.35 Body mass index [BMI] 35.0-35.9, adult; Z87.891 Personal history of nicotine dependence; Z79.899 Other long term (current) drug therapy
CPT/HCPCS: 36415; 80048; 85014; 85018; 85025; 86850; 86900; 86901; 87635; 88307; 88342; 99024; A4649; J0131; J0690; J1100; J1170; J2250; J2370; J2405; J2550; J2765; J3010

== ENCOUNTER → 2020-12-28 07:15 | Outpatient (BNVA) | payer MEDICAID, SELFPAY | PROVIDERS: PCP Internal Medicine; Visit Provider Surgery | DX: Z98.84 Bariatric surgery status (principal); E66.9 Obesity, unspecified; Z68.34 Body mass index [BMI] 34.0-34.9, adult; Z79.899 Other long term (current) drug therapy; Z71.3 Dietary counseling and surveillance | CPT/HCPCS: 99212 ==

== ENCOUNTER → 2021-01-30 06:48 | Outpatient (BNVA) | payer MEDICAID, SELFPAY | PROVIDERS: PCP Internal Medicine; Visit Provider Surgery | DX: E66.9 Obesity, unspecified (principal); Z68.31 Body mass index [BMI] 31.0-31.9, adult | CPT/HCPCS: 99212 ==

== ENCOUNTER → 2021-03-03 08:10 | Outpatient (BNVA) | payer MEDICAID, SELFPAY | PROVIDERS: PCP Internal Medicine; Visit Provider Surgery | DX: E66.9 Obesity, unspecified (principal); Z68.32 Body mass index [BMI] 32.0-32.9, adult | CPT/HCPCS: 99212 ==

== ENCOUNTER → 2021-03-16 08:06 | Outpatient (BNVA) | payer MEDICAID, SELFPAY | PROVIDERS: PCP Internal Medicine; Visit Provider Dietitian, Registered | DX: E66.9 Obesity, unspecified (principal); Z68.30 Body mass index [BMI] 30.0-30.9, adult | CPT/HCPCS: 97803 ==

== ENCOUNTER 2021-09-27 13:05 | Outpatient (REF) | payer MEDICAID, SELFPAY ==
--- NOTE | ~2021-09-27 | MM_ITS ---
EXAMINATION: MM DIAGNOSTIC DIGITAL BREAST TOMOSYNTHESIS, BILATERAL CLINICAL INFORMATION: Due for yearly. Also follow-up probable benign calcifications posterior 12:00 right breast. The lifetime risk of breast cancer based on the Tyrer-Cuzick Model is 10%. COMPARISON: Mammography: 04/18/2020, 10/15/2019, 04/15/2019, 09/29/2018 (diagnostic, BI-RADS 3), 09/27/2017. TECHNIQUE: Digital breast tomosynthesis is performed in both the craniocaudal and mediolateral oblique views along with computer-aided detection (CAD). Synthesized 2D images are generated from the tomosynthesis. Additional magnification right CC and magnification right LM views are obtained. FINDINGS: The breasts are heterogeneously dense, which may obscure small masses (ACR BI-RADS breast composition Category c). The denser breast tissue composition is in the upper outer quadrants. Parenchymal pattern is similar to prior studies. There is no developing density or interval mass or architectural abnormality. The axilla and skin contours are unremarkable. Grouped calcifications left breast mid upper outer quadrant appear coarser when compared with prior study. The calcifications previously described mid central left breast are decreased in number. No interval suspicious calcifications. The right breast calcifications posterior 12:00 position are decreased and now considered to be benign. There are no interval suspicious calcifications. Results are provided to the patient at time of visit by the technologist. MM/MM tomosynthesis diagnostic BI IMPRESSION: -No mammographic evidence of malignancy. -Bilateral benign calcifications, right posterior 12:00 and left central mid are decreased in number. -Calcifications mid upper outer left breast are coarser. ASSESSMENT: BI-RADS 2: Benign RECOMMENDATION: Routine annual mammography screening. This patient's information was entered into a reminder system with a target due date for their next mammogram.
== END 2021-09-27 13:06 | disposition home or self-care (01) ==
LOC: HO.MAMMO 13:05
PROVIDERS: PCP Internal Medicine; Visit Provider Internal Medicine
DX: R92.1 Mammographic calcification found on diagnostic imaging of breast (principal)
CPT/HCPCS: 77062; 77066

== ENCOUNTER 2021-11-16 16:15 | Emergency (ER) | payer MEDICAID, SELFPAY ==
--- NOTE | ~2021-11-16 | CT_ITS ---
EXAMINATION: CT ABDOMEN AND PELVIS WITH CONTRAST CLINICAL INFORMATION: Abdominal pain. Question appendicitis. COMPARISON: 02/03/2016 TECHNIQUE: Multidetector volumetric images were obtained from the superior aspect of the liver through the pubic symphysis following administration 85 mL of Omnipaque 350 intravenous contrast. Sagittal and coronal reformatted images were obtained on the technologist's workstation. Oral contrast: No This CT examination was performed using dose optimization techniques as appropriate, variously including the following: *Automated exposure control *Adjustment of mA and/or kV according to patient size (this includes techniques or standardized protocols for targeted exams where dose is matched to indication/reason for exam; i.e. extremities or head) *Use of iterative reconstruction technique DLP: 721 mGy-cm FINDINGS: LUNG BASES: The visualized lung bases are unremarkable. LIVER, GALLBLADDER, AND BILIARY TREE: The liver is normal in size, shape, and attenuation. No focal hepatic lesion or biliary ductal dilatation is present. The gallbladder is unremarkable with no evidence of radiopaque gallstones, gallbladder wall thickening, or obvious pericholecystic inflammatory changes. PANCREAS: Unremarkable. SPLEEN: Unremarkable. ADRENAL GLANDS: Unremarkable. KIDNEYS AND URETERS: The kidneys are normal in size, shape, and attenuation. No hydronephrosis, hydroureter, or calculi seen. No perinephric stranding. BLADDER: Unremarkable. GASTROINTESTINAL TRACT: Stomach, small bowel, and colon are normal in caliber. Status post gastric sleeve with numerous surgical clips along the greater curvature of the stomach. No bowel wall thickening or surrounding inflammatory change. Appendix is normal. No intraperitoneal free air. Trace physiologic free fluid in the pelvis. ABDOMINAL WALL: No significant hernia is appreciated. LYMPH NODES: Normal. VASCULAR: Unremarkable. PELVIC VISCERA: A few small uterine fibroids are noted, measuring up to 1.5 cm in diameter. Heterogeneous thickening of the transitional zone of the uterus is noted. A 2.8 cm simple appearing left ovarian cyst is noted, likely follicular cyst. No recommend follow-up. No suspicious adnexal lesions. OSSEOUS STRUCTURES: Normal bone mineralization. No fracture or malalignment. Facet arthropathy in the lower lumbar spine CT/CT abdomen pelvis w con IMPRESSION: 1. No acute intra-abdominal or intrapelvic abnormalities. Normal appendix. 2. A few uterine fibroids. No acute findings in the pelvis.
[2021-11-16 16:20] VITALS: BP 121/62; PULSE 77; RESP 18; TEMP 36.6; O2SAT 98; BMI 32.3
[2021-11-16 16:40] LABS: MANUAL DIFF FLAG NO
[2021-11-16 16:41] LABS: Appearance Urine HAZY; Color Urine YELLOW; Glucose Urine UA NEG (NEG); Leukocyte Esterase Urine 1+ (NEG); Nitrite Urine NEG (NEG); Specific Gravity - Urine >= 1.030 (1.005-1.025); UACC Culture Trigger YES; Urine Blood NEG (NEG); Urine Ketones 15 MG/DL (NEG); Urine Protein NEG (NEG-TRACE)
[2021-11-16 16:42] LABS: Basophils Percent Auto 0.3 % (0-2); Eosinophils Percent Auto 0.6 % (0-4); Hematocrit 40.2 % (37.0-47.0); Hemoglobin 13.8 g/dl (12.0-16.0); Imm Gran Abs Auto 0.01 X10*3/uL (0.00-0.03); Imm Gran Pct Auto 0.2 % (0.0-0.4); Lymphocytes Absolute Auto 1.3 X10*3/uL (1.2-4.9); Lymphocytes Percent Auto 20.1 % (20-40); Mean Corpuscular HGB Conc 34.3 g/dl (31.0-35.0); Mean Corpuscular Hemoglobin 30.8 pg (27.0-33.0); Mean Corpuscular Volume 89.7 fL (80.0-98.0); Mean Platelet Volume 9.5 fL (9.4-12.3); Monocytes Absolute Auto 0.7 X10*3/uL (0.1-1.2); Monocytes Percent Auto 10.1 % (2-11); Neutrophils Absolute Auto 4.5 x10*3/uL (2.0-8.3); Neutrophils Percent Auto 68.7 % (45-73); Platelet Count 241 X10*3/uL (160-400); Red Blood Count 4.48 X10*6/uL (4.20-5.50); Red Cell Distribution Width 11.8 % (11.0-16.0); White Blood Count 6.6 X10*3/uL (4.8-10.8)
[2021-11-16 16:43] LABS: UPreg QC Valid YES; Urine Pregnancy NEGATIVE (NEGATIVE)
[2021-11-16 16:48] LABS: Bacteria Urine 1+ /LPF; RBC Urine 0 /HPF (0); Squamous Epithelial Cell Urine 2+ /LPF; WBC Urine 0-2 /HPF (0-4)
[2021-11-16 16:57] LABS: Alanine Aminotransferase 21 U/L (0-31); Albumin Level 4.7 g/dL (3.5-5.0); Alkaline Phosphatase 76 U/L (39-117); Anion Gap 13 (12-20); Aspartate Amino Transferase 17 U/L (5-31); Bilirubin Direct 0.4 mg/dL (0.0-0.5); Blood Urea Nitrogen 14 mg/dL (9-16); Calcium 9.6 mg/dL (8.4-10.2); Carbon Dioxide 24 mmol/L (22-29); Chloride 107 mmol/L (96-108); Creatinine Clr Calc Pharmacy 128.5; Estimated Glomerular Filt Rate > 60; Glucose Random 92 mg/dL (60-115); Lipase 18 U/L (8-78); Potassium 3.7 mmol/L (3.3-5.1); Sodium 140 mmol/L (135-145); Total Protein 7.7 g/dL (6.5-8.0)
--- NOTE | 2021-11-16 22:55 | ED.ABDPAIN ---
HPI - Abdominal Pain General Chief Complaint: Abdominal Pain Stated Complaint: appendix inflammation Time Seen by Provider: 11/16/21 16:27 Source: patient Mode of arrival: ambulatory Limitations: no limitations History of Present Illness HPI narrative: 40-year-old female presents for abdominal pain that started on November 01. States that she was evaluated at [facility], and was called by a surgeon that told her to present to the emergency department for appendicitis. MD elicited complaint: abdominal pain Pertinent past history: none Onset (ago): week(s) Pain Consistency: constant Location: RLQ Severity: moderate Pain scale (0-10): 7 Quality: aching Radiation: none Migration to: no migration Exacerbating factors: eating, bowel movement and movement Associated symptoms: nausea and chills Related Data Home Medications Medication Instructions Recorded Confirmed paroxetine HCl 40 mg tablet 40 mg PO DAILY 07/06/20 12/13/20 prazosin 1 mg capsule 1 mg PO BEDTIME 07/06/20 12/13/20 Previous Rx's Medication Instructions Recorded ondansetron HCl 4 mg tablet 4 mg PO Q12H nausea and vomiting 12/12/20 (Zofran) #20 tabs pantoprazole 40 mg tablet,delayed 40 mg PO DAILY #30 tabs 12/12/20 release sucralfate 100 mg/mL oral 10 ml PO BID #400 mL 12/12/20 suspension nitrofurantoin 100 mg PO Q12H 5 days #10 caps 11/17/21 monohydrate/macrocrystals 100 mg capsule (Macrobid) Allergies Allergy/AdvReac Type Severity Reaction Status Date / Time No Known Allergies Allergy Verified 12/28/20 07:25 Review of Systems Review of Systems Constitutional: No Fever, positive Chills ENT/Mouth: No Ear Pain, No Hoarseness, No sore throat Eyes: No Eye Pain, No Swelling, No Redness, No Foreign Body Cardiovascular: No Chest Pain, No SOB Respiratory: No Cough, No Dyspnea Gastrointestinal: Positive Nausea, No Vomiting, No Diarrhea, positive abdominal Pain Genitourinary: No Dysuria, No Hematuria Musculoskeletal: No joint pain, No Myalgias, No Joint Swelling Skin: No Skin lacerations, No rash Neuro: No Weakness, No Numbness, No Paresthesias, No Loss of Consciousness, No Dizziness, No Headache Psych: No Anxiety/Panic, No Depression Heme/Lymph: no easy bruising, no Lymphadenopathy Endocrine: No Polyuria, No Polydipsia Yes all other systems are reviewed and are negative [facility] Past Medical History Attestation statement: The following information was validated with the patient. Source: old records reviewed Medical History Depression GERD (gastroesophageal reflux disease) Hx of bipolar disorder Panic attack Surgical History H/O parathyroidectomy History of endometrial ablation History of esophagogastroduodenoscopy (EGD) History of sleeve gastrectomy History of tonsillectomy and adenoidectomy Hx of tubal ligation Family History Family History Mother Heart disease Arthritis Father Liver disease Herniated disc Brother No problems noted. Brother No problems noted. Brother No problems noted. Sister Diabetes Sister Migraine Sister HIV disease Sister No problems noted. Sister No problems noted. Daughter Asthma Son No problems noted. Social History Social History Household Members: Family Housing: Apartment Are you a primary cardiac care nurse to a significant other at home: No Do you presently have visiting nurse or other home services: No Alcohol intake: never Patient Tobacco Use Status: Former Tobacco user Quit Date: 2018 Tobacco use type: Cigarette Advance Directives: No Advance Directives Information Provided: Yes service: No Current occupational status: unemployed Physical Exam ED Vital Signs: Vital Signs - 24 hr 11/16/21 16:20 11/17/21 00:00 Temperature 98 F 98.4 F Pulse Rate 77 46 L Respiratory Rate 18 14 Blood Pressure 121/62 96/49 L Pulse Oximetry 98 98 Oxygen Delivery Method Room Air Room Air BMI result Body Mass Index 32.3 Appearance: Alert. Oriented X3. No acute distress. Eyes: Pupils equal, round and reactive to light. ENT: Pharynx normal. Neck: Normal inspection. Neck supple. CVS: Normal heart rate and rhythm. Pulses normal. Respiratory: No respiratory distress. Breath sounds normal. Abdomen: Soft and right lower quadrant tenderness on palpation. Skin: Skin warm and dry. Normal skin color. Normal skin turgor. Extremities: No lower extremity edema. Gait well-balanced well coordinated. Neuro: No motor deficit. No sensory deficit. Cranial nerves 2-12 intact. Course Course Course Narrative: 40-year-old female presents to the emergency department because she was called by a surgeon that told her that 1 of her imaging tests came back positive for appendicitis. Patient states that she has had abdominal pain since November 01, was evaluated at [facility]. Labs drawn while patient was in the emergency department waiting room. Labs are unremarkable. U preg is negative. Based on patient's description, will order CT scan of abdomen pelvis with contrast. Physical exam does show some tenderness to palpation to the right lower quadrant. 00:32 CT scan abdomen pelvis negative for acute findings requiring emergent intervention. Does indicate uterine fibroids. Patient receiving 1 L of normal saline for blood pressure that was soft. Patient will be discharged after fluid infusion. Urinalysis positive for leukocyte esterase. Will treat with Macrobid. Patient verbalized understanding of and agrees to plan of care to discharge home. Verbalized understanding of signs and symptoms indicating need for emergent intervention MDM - Abdominal Pain Differential Diagnosis Differential diagnosis: Likely abdominal pain, acute appendicitis, calculus of kidney, constipation and diverticulitis Medical Records Attestation: I reviewed the patient's medical records. Lab Data Attestation: I reviewed the patient's lab results. Result diagrams: 11/16/21 16:32 11/16/21 16:32 Labs: Lab Results 11/16/21 11/16/21 11/16/21 Range/Units 16:32 16:32 16:32 WBC 6.6 (4.8-10.8) X10*3/uL RBC 4.48 (4.20-5.50) X10*6/uL Hgb 13.8 (12.0-16.0) g/dl Hct 40.2 (37.0-47.0) % MCV 89.7 (80.0-98.0) fL MCH 30.8 (27.0-33.0) pg MCHC 34.3 (31.0-35.0) g/dl RDW 11.8 (11.0-16.0) % Plt Count 241 (160-400) X10*3/uL MPV 9.5 (9.4-12.3) fL Immature Gran % (Auto) 0.2 (0.0-0.4) % Neut % (Auto) 68.7 (45-73) % Lymph % (Auto) 20.1 (20-40) % Rogers % (Auto) 10.1 (2-11) % Eos % (Auto) 0.6 (0-4) % Baso % (Auto) 0.3 (0-2) % Lymph # (Auto) 1.3 (1.2-4.9) X10*3/uL Rogers # (Auto) 0.7 (0.1-1.2) X10*3/uL Eos # (Auto) 0.0 (0.0-0.4) X10*3/uL Baso # (Auto) 0.0 (0.0-0.2) X10*3/uL Abs Immat Gran (auto) 0.01 (0.00-0.03) X10*3/uL Absolute Neuts (auto) 4.5 (2.0-8.3) x10*3/uL Absolute Nucleated RBC 0.000 (0.0-0.012) X10*3/uL Nucleated RBC % (auto) 0.0 (0.0-0.2) /100WBC Sodium 140 (135-145) mmol/L Potassium 3.7 (3.3-5.1) mmol/L Chloride 107 (96-108) mmol/L Carbon Dioxide 24 (22-29) mmol/L Anion Gap 13 (12-20) BUN 14 (9-16) mg/dL Creatinine 0.66 (0.5-1.4) mg/dL Estim Creat Clear Calc 128.5 Estimated GFR > 60 Random Glucose 92 (60-115) mg/dL Calcium 9.6 (8.4-10.2) mg/dL Total Bilirubin 1.0 (0.0-1.0) mg/dL Direct Bilirubin 0.4 (0.0-0.5) mg/dL AST 17 (5-31) U/L ALT 21 (0-31) U/L Alkaline Phosphatase 76 (39-117) U/L Total Protein 7.7 (6.5-8.0) g/dL Albumin 4.7 (3.5-5.0) g/dL Lipase 18 (8-78) U/L Urine Color YELLOW Urine Appearance HAZY Urine pH 6.0 (5.0-8.0) Ur Specific [place] >= 1.030 H (1.005-1.025) Urine Protein NEG (NEG-TRACE) MG/DL Urine Glucose (UA) NEG (NEG) MG/DL Urine Ketones 15 (NEG) MG/DL Urine Blood NEG (NEG) Urine Nitrite NEG (NEG) Ur Leukocyte Esterase 1+ H (NEG) Urine RBC 0 (0) /HPF Urine WBC 0-2 (0-4) /HPF Ur Squamous Epith Cells 2+ /LPF Urine Bacteria 1+ /LPF Urine Yeast TRACE /HPF Urine Test (NEGATIVE) 11/16/21 Range/Units 16:32 WBC (4.8-10.8) X10*3/uL RBC (4.20-5.50) X10*6/uL Hgb (12.0-16.0) g/dl Hct (37.0-47.0) % MCV (80.0-98.0) fL MCH (27.0-33.0) pg MCHC (31.0-35.0) g/dl RDW (11.0-16.0) % Plt Count (160-400) X10*3/uL MPV (9.4-12.3) fL Immature Gran % (Auto) (0.0-0.4) % Neut % (Auto) (45-73) % Lymph % (Auto) (20-40) % Rogers % (Auto) (2-11) % Eos % (Auto) (0-4) % Baso % (Auto) (0-2) % Lymph # (Auto) (1.2-4.9) X10*3/uL Rogers # (Auto) (0.1-1.2) X10*3/uL Eos # (Auto) (0.0-0.4) X10*3/uL Baso # (Auto) (0.0-0.2) X10*3/uL Abs Immat Gran (auto) (0.00-0.03) X10*3/uL Absolute Neuts (auto) (2.0-8.3) x10*3/uL Absolute Nucleated RBC (0.0-0.012) X10*3/uL Nucleated RBC % (auto) (0.0-0.2) /100WBC Sodium (135-145) mmol/L Potassium (3.3-5.1) mmol/L Chloride (96-108) mmol/L Carbon Dioxide (22-29) mmol/L Anion Gap (12-20) BUN (9-16) mg/dL Creatinine (0.5-1.4) mg/dL Estim Creat Clear Calc Estimated GFR Random Glucose (60-115) mg/dL Calcium (8.4-10.2) mg/dL Total Bilirubin (0.0-1.0) mg/dL Direct Bilirubin (0.0-0.5) mg/dL AST (5-31) U/L ALT (0-31) U/L Alkaline Phosphatase (39-117) U/L Total Protein (6.5-8.0) g/dL Albumin (3.5-5.0) g/dL Lipase (8-78) U/L Urine Color Urine Appearance Urine pH (5.0-8.0) Ur Specific [place] (1.005-1.025) Urine Protein (NEG-TRACE) MG/DL Urine Glucose (UA) (NEG) MG/DL Urine Ketones (NEG) MG/DL Urine Blood (NEG) Urine Nitrite (NEG) Ur Leukocyte Esterase (NEG) Urine RBC (0) /HPF Urine WBC (0-4) /HPF Ur Squamous Epith Cells /LPF Urine Bacteria /LPF Urine Yeast /HPF Urine Test NEGATIVE (NEGATIVE) Imaging Data CT abdomen pelvis: Attestation: I personally reviewed and interpreted this imaging study as follows: Radiologist's impression: FINDINGS: LUNG BASES: The visualized lung bases are unremarkable.? LIVER, GALLBLADDER, AND BILIARY TREE: The liver is normal in size, shape, and attenuation. No focal hepatic lesion or biliary ductal dilatation is present. The gallbladder is unremarkable with no evidence of radiopaque gallstones, gallbladder wall thickening, or obvious pericholecystic inflammatory changes.? PANCREAS: Unremarkable.? SPLEEN: Unremarkable.? ADRENAL GLANDS: Unremarkable.? KIDNEYS AND URETERS: The kidneys are normal in size, shape, and attenuation. No hydronephrosis, hydroureter, or calculi seen. No perinephric stranding. ? BLADDER: Unremarkable.? GASTROINTESTINAL TRACT: Stomach, small bowel, and colon are normal in caliber. Status post gastric sleeve with numerous surgical clips along the greater curvature of the stomach. No bowel wall thickening or surrounding inflammatory change. Appendix is normal. No intraperitoneal free air. Trace physiologic free fluid in the pelvis. ABDOMINAL WALL: No significant hernia is appreciated.? LYMPH NODES: Normal. VASCULAR: Unremarkable. PELVIC VISCERA: A few small uterine fibroids are noted, measuring up to 1.5 cm in diameter. Heterogeneous thickening of the transitional zone of the uterus is noted. A 2.8 cm simple appearing left ovarian cyst is noted, likely follicular cyst. No recommend follow-up. No suspicious adnexal lesions. OSSEOUS STRUCTURES: Normal bone mineralization. No fracture or malalignment. Facet arthropathy in the lower lumbar spine CT/CT abdomen pelvis w con IMPRESSION: 1. No acute intra-abdominal or intrapelvic abnormalities. Normal appendix. 2. A few uterine fibroids. No acute findings in the pelvis. Discharge Plan Discharge Clinical Impression: UTI (urinary tract infection) Patient Disposition: Home, Self-Care Instructions: Urinary Tract Infection in Women (ED) Additional Instructions: Le evaluaron por dolor abdominal. Tomograf?a computarizada de abdomen y pelvis negativa para hallazgos agudos que requieren intervenci?n de emergencia. Hallazgos incidentales de fibromas uterinos. Jagruti un seguimiento con OBGYN para la evaluaci?n de fibromas. El an?lisis de orina es positivo para esterasa de leucocitos de levadura. Lo estamos tratando por UTI. [place] Macrobid 100 mg dos veces al d?a nicho los pr?ximos 5 d?as. Beber mucho l?quido. [place] por elegir vincenzo departamento de emergencias para ledezma evaluaci?n. Por favor, jagruti un seguimiento con el m?dico de atenci?n primaria seg?n sea necesario. Regrese al departamento de emergencias por cualquier s?ntoma nuevo, preocupante o que empeore You were evaluated for abdominal pain. CT scan of abdomen and pelvis negative for acute findings requiring emergent intervention. Incidental findings of uterine fibroids. Please follow-up with OBGYN for fibroid assessment. Urinalysis is positive for yeast leukocyte esterase. We are treating you for UTI. Please take Macrobid 100 mg twice a day for the next 5 days. Drink plenty of fluids. Thank you for choosing this emergency department for evaluation. Please follow-up with primary care physician as needed. Return to the emergency department for any new, concerning, or worsening symptoms. Prescriptions: New nitrofurantoin monohyd/m-cryst [Macrobid] 100 mg capsule 100 mg PO Q12H 5 Days Qty: 10 0RF Rx Instructions: must administer with a meal/food No Action paroxetine HCl 40 mg tablet 40 mg PO DAILY prazosin 1 mg capsule 1 mg PO BEDTIME pantoprazole 40 mg tablet,delayed release (DR/EC) 40 mg PO DAILY Qty: 30 2RF sucralfate 100 mg/mL suspension 10 ml PO BID Qty: 400 2RF ondansetron HCl [Zofran] 4 mg tablet 4 mg PO Q12H Qty: 20 0RF
[2021-11-16] MEDS: iohexoL 300 MG/ML 100 ML INFUS..BTL IV (23:43)
[2021-11-17] VITALS: BP 96/49; PULSE 46; RESP 14; TEMP 36.9; O2SAT 98
[2021-11-17] MEDS: 0.9 % Sodium Chloride 1,000 ML 999 ML IVCONT (00:16)
[2021-11-17 00:53] VITALS: BP 103/55; PULSE 50; RESP 16; TEMP 36.9; O2SAT 99
[2021-11-17] MEDS: Nitrofurantoin Monohyd/M-Cryst 100 MG CAPSULE PO (00:59)
== END 2021-11-17 01:06 | disposition home or self-care (01) ==
PROVIDERS: Emergency Provider Emergency Medicine; PCP Internal Medicine
DX: N39.0 Urinary tract infection, site not specified (principal); R10.31 Right lower quadrant pain; D25.9 Leiomyoma of uterus, unspecified; N83.202 Unspecified ovarian cyst, left side
CPT/HCPCS: 36415; 74177; 80048; 80076; 81001; 81025; 83690; 85025; 87086; 96360; 99283; 99284; Q9967

== ENCOUNTER → 2022-04-11 11:27 | Outpatient (BNVA) | payer MEDICAID, SELFPAY | PROVIDERS: PCP Internal Medicine; Visit Provider Advanced Practice Midwife | DX: N91.2 Amenorrhea, unspecified (principal); E89.2 Postprocedural hypoparathyroidism; R23.2 Flushing; Z98.84 Bariatric surgery status; Z98.890 Other specified postprocedural states | CPT/HCPCS: 36415; 83001; 84443; 84702; 99202 ==

== ENCOUNTER 2022-04-11 12:52 | Outpatient (REF) | payer MEDICAID, SELFPAY ==
[2022-04-11 14:14] LABS: HCG Quantitative < 2 mIU/mL; Thyroid Stimulating Hormone 0.75 uIU/mL (0.32-4.0)
[2022-04-12 17:17] LABS: Follicle Stimulating Hormone 88.7 mIU/mL
== END 2022-04-11 12:53 | disposition home or self-care (01) ==
LOC: HO.LAB 12:52
PROVIDERS: PCP Internal Medicine; Visit Provider Advanced Practice Midwife
DX: E89.2 Postprocedural hypoparathyroidism (principal); N91.2 Amenorrhea, unspecified; R23.2 Flushing; Z98.84 Bariatric surgery status
CPT/HCPCS: 36415; 83001; 84443; 84702

== ENCOUNTER 2022-05-14 15:11 | Outpatient (REF) | payer MEDICAID, SELFPAY ==
--- NOTE | ~2022-05-14 | US_ITS ---
EXAMINATION: US PELVIS CLINICAL INFORMATION: Amenorrhea. COMPARISON: Previous CT November 2021 and pelvic ultrasound July 2015 TECHNIQUE: Ultrasound of the pelvis is performed using both transabdominal and transvaginal transducers along with Doppler. Transvaginal imaging is performed due to inadequate visualization transabdominally. Exam is limited due to patient body habitus. FINDINGS: The uterus appears retroverted and retroflexed and measures 10 x 6 x 5.6 cm. Uterine echotexture is heterogeneous. No focal uterine lesion. Endometrial thickness is normal, measuring 0.5 to 0.6 cm. There are nabothian cysts in the cervix. The right ovary is not seen. The left ovary measures 3.8 x 1.9 x 2.6 cm. There are 3.6 x 2.1 x 2.7 cm complex left ovarian cysts, or a cyst within cyst or a daughter, suggestive of a physiologic cyst. According to age and size criteria, no imaging follow-up would be recommended. There is a small amount of fluid in the pelvis. US/US pelvic and transvaginal IMPRESSION: Limited exam. Heterogeneous appearing uterus. Right ovary not seen. 3.6 cm left ovarian cyst.
== END 2022-05-14 15:12 | disposition home or self-care (01) ==
LOC: HO.US 15:11
PROVIDERS: Visit Provider Advanced Practice Midwife
DX: E89.2 Postprocedural hypoparathyroidism (principal); N91.2 Amenorrhea, unspecified; R23.2 Flushing; Z98.84 Bariatric surgery status
CPT/HCPCS: 76830; 76856

== ENCOUNTER → 2022-06-19 13:19 | Outpatient (BNVA) | payer MEDICAID, SELFPAY | PROVIDERS: PCP Internal Medicine; Visit Provider Advanced Practice Midwife | DX: N91.2 Amenorrhea, unspecified (principal); N95.1 Menopausal and female climacteric states; R23.2 Flushing; E89.2 Postprocedural hypoparathyroidism | CPT/HCPCS: 99212 ==

== ENCOUNTER → 2022-08-23 13:10 | Outpatient (BNVA) | payer MEDICAID, SELFPAY | PROVIDERS: PCP Internal Medicine; Visit Provider Physician Assistant Surgical | DX: E66.3 Overweight (principal); Z68.26 Body mass index [BMI] 26.0-26.9, adult; Z98.84 Bariatric surgery status | CPT/HCPCS: 99212 ==

== ENCOUNTER 2022-08-31 13:06 | Outpatient (REF) | payer MEDICAID, SELFPAY ==
[2022-08-31 13:25] LABS: MANUAL DIFF FLAG NO
[2022-08-31 14:06] LABS: Basophils Percent Auto 0.4 % (0-2); Eosinophils Percent Auto 0.9 % (0-4); Hematocrit 37.8 % (37.0-47.0); Hemoglobin 12.8 g/dl (12.0-16.0); Imm Gran Abs Auto 0.01 X10*3/uL (0.00-0.03); Imm Gran Pct Auto 0.2 % (0.0-0.4); Lymphocytes Absolute Auto 1.6 X10*3/uL (1.2-4.9); Mean Corpuscular HGB Conc 33.9 g/dl (31.0-35.0); Mean Corpuscular Hemoglobin 29.9 pg (27.0-33.0); Mean Corpuscular Volume 88.3 fL (80.0-98.0); Mean Platelet Volume 10.2 fL (9.4-12.3); Monocytes Absolute Auto 0.5 X10*3/uL (0.1-1.2); Monocytes Percent Auto 10.8 % (2-11); Neutrophils Absolute Auto 2.4 x10*3/uL (2.0-8.3); Neutrophils Percent Auto 52.7 % (45-73); Platelet Count 268 X10*3/uL (160-400); Red Blood Count 4.28 X10*6/uL (4.20-5.50); Red Cell Distribution Width 11.8 % (11.0-16.0); White Blood Count 4.5 X10*3/uL (4.8-10.8)
[2022-08-31 15:25] LABS: Estimated Average Glucose 105 mg/dL; Hemoglobin A1c % 5.3 %
[2022-08-31 16:33] LABS: Alanine Aminotransferase 26 U/L (0-31); Albumin Level 4.5 g/dL (3.5-5.0); Alkaline Phosphatase 81 U/L (39-117); Anion Gap 13 (12-20); Aspartate Amino Transferase 19 U/L (5-31); Bilirubin Total 0.9 mg/dL (0.0-1.0); Blood Urea Nitrogen 15 mg/dL (9-16); C Reactive Protein < 0.10 mg/dL (< or = 0.50); Calcium 9.9 mg/dL (8.4-10.2); Carbon Dioxide 27 mmol/L (22-29); Chloride 108 mmol/L (96-108); Cholesterol 187 mg/dL; Estimated Glomerular Filt Rate > 60; Glucose Random 84 mg/dL (60-115); HDL Cholesterol 63 mg/dL; Iron 115 mcg/dL (30-160); LDL Cholesterol Calculated 116 mg/dl; Percent Iron Saturation 36 % (15-50); Potassium 3.6 mmol/L (3.3-5.1); Sodium 144 mmol/L (135-145); Total Iron Binding Capacity 321 mcg/dL (228-428); Total Protein 7.2 g/dL (6.5-8.0); Triglycerides 41 mg/dL; Unsaturated Iron Binding 206 ug/dL
[2022-08-31 17:01] LABS: Ferritin 237 ng/mL (10-250); Insulin 4 uU/mL (2-29); TSH reflex Free T4 1.07 uIU/mL (0.32-4.0); Vitamin B12 367 pg/mL (200-900)
[2022-08-31 18:19] LABS: Vitamin D 25-OH Total 28.2 ng/mL (>30)
[2022-08-31 21:05] LABS: Folate 12.3 ng/mL (> or = 4.0)
[2022-09-03 12:48] LABS: Calcium (PTHI) 8.8 mg/dL (8.6-10.2); PTHI 38 pg/mL (16-77)
[2022-09-05 06:03] LABS: Zinc 68 mcg/dL (60-130)
[2022-09-06 15:33] LABS: Vitamin B1 10 nmol/L (8-30)
[2022-09-06 18:13] LABS: Vitamin A 34 mcg/dL (38-98)
== END 2022-08-31 13:07 | disposition home or self-care (01) ==
LOC: HO.LAB 13:06
PROVIDERS: PCP Internal Medicine; Visit Provider Physician Assistant Surgical
DX: Z98.84 Bariatric surgery status (principal)
CPT/HCPCS: 36415; 80053; 80061; 82306; 82607; 82728; 82746; 83036; 83525; 83540; 83970; 84425; 84443; 84590; 84630; 85025; 86140

== ENCOUNTER 2022-12-24 12:46 | Outpatient (AMB) | payer MEDICAID, SELFPAY ==
--- NOTE | 2022-12-24 12:54 | MHC.OFFVISWM ---
Intake VS Expanded 12/24/22 12:59 Height 5 ft 6 in Weight 177 lb 9.6 oz BMI 28.7 BP 100/56 L Blood Pressure Location Rt brachial Blood Pressure Position Sitting Pulse 52 Pulse Source Pulse Oximeter Temp 97.8 F Temperature Source Temporal Artery Scan Pulse Oximetry 97 Oxygen Delivery Method Room Air Body Fat 58.6 Body Fat Percentage 33.0 Free Fat Mass 118.8 Muscle Mass 112.8 Visceral Mass 6.0 Water Mass 84.8 BMR 1,610 Intake Visit Reasons: (OV) PO LSG 12/22/20 Allergies Seasonal Allergies Allergy (Mild, Verified 12/24/22 13:00) Itchy Eyes Medication List - Last Reconciled 12/24/22 by EJ Leon amitriptyline 10 mg PO BEDTIME bupropion HCl 150 mg PO DAILY cholecalciferol (vitamin D3) 25 mcg PO DAILY fluticasone propionate 50 mcg/actuation 1 spray intranasal BID hydroxyzine HCl 25 mg PO BID PRN multivitamin 1 tab PO DAILY sumatriptan succinate 0 mg PO vitamin A palmitate 10,000 units PO DAILY HPI HPI Comments History of Present Illness Details This?is a?42?yo female who is s/p LSG 12/22/2020. Presents for 2 year post op visit. Weight at last visit on 08/23/2022 was 165 pounds with a BMI of 26.6, weight today is 177.6 pounds, representing a 12.2 pound weight gain with a BMI today of 28.7.? No complaints of nausea, emesis, abdominal pain or reflux, or constipation. Present meal plan includes: 65-70g goal protein/day suggested at last visit Premier protein water [place] yogurt cup- not consistent with this or with protein water Two small meals each of 2-3oz protein (eggs, meat) does not eat vegetables Reports 3 months not going to gym. Anxiety making her crave chocolate and cheese. Also having some juices, Sprite or eric gus. Last month was started on meds for anxiety and seeing a therapist. Likes walking, elliptical for exercise. Did the patient ever have any of these conditions and are they resolved or still being treated? GERD: resolved NANNETTE:? never DM:? never HTN:? never Hyperlipidemia:? never? Post op complications:? none Heartburn symptoms? none Score 0-5: 0=no symptoms, 1=noticeable but not bothersome (slight or occasional), 2=noticeable, bothersome but not daily, 3=bothersome and daily, 4=affects daily activities, 5=incapacitating, unable to do daily activities How bad is the heartburn: 0 Heartburn when lying down: 0 Heartburn when standing up: 0 Heartburn after meals: 0 Does heartburn change your diet: 0 Does heartburn wake you up from sleep: 0 Do you have difficulty swallowin Do you have pain with swallowin If you take medication for reflux, does this affect your daily life: 0 Total score: 0 PFSH Medical History Depression GERD (gastroesophageal reflux disease) Hx of bipolar disorder Panic attack Surgical History H/O parathyroidectomy History of endometrial ablation History of esophagogastroduodenoscopy (EGD) History of sleeve gastrectomy History of tonsillectomy and adenoidectomy Hx of tubal ligation Family History Mother Heart disease Arthritis Father Liver disease Herniated disc Brother No problems noted. Brother No problems noted. Brother No problems noted. Sister Diabetes Sister Migraine Sister HIV disease Sister No problems noted. Sister No problems noted. Daughter Asthma Son No problems noted. Paternal Aunt Breast cancer Social History Household Members: Family Housing: Apartment Are you a primary wound care coordinator to a significant other at home: No Do you presently have visiting nurse or other home services: No Alcohol intake: never Patient Tobacco Use Status: Former Tobacco user Quit Date: 2018 Tobacco use type: Cigarette service: No Current occupational status: unemployed Female Reproductive History Menstrual Age of Menarche: 13 Physical Exam Const General: cooperative, comfortable and no acute distress Orientation/consciousness: patient oriented x3 GI Other: soft, nontender, nondistended, incisions well healed, no hernia, no masses Neuro General: patient oriented x3 Assessment & Plan Assessment & Plan (1) Overweight: Code(s): E66.3 - Overweight (2) S/P laparoscopic sleeve gastrectomy: Code(s): Z98.84 - Bariatric surgery status Plan Pt is surprised by weight gain today but admits numerous behaviors (chocolate, no exercise) that have contributed. Pt usually gets two small meals of protein per day but has not been consistent with protein water or yogurt. She has a lot of food preferences. Suggested meeting with RD to help create a meal plan that meets protein goals with pt's preferred foods. Also discussed increasing exercise to help with weight loss, which also may help with her anxiety. Next PA visit in 1 year. Patient is overweight and is not considered stable at this time. I spent a total of 30 minutes reviewing/updating records, examining the patient and counseling the patient on weight management as detailed above. Coding Level of Care Code Est Pt Level 4 (98497) Diagnoses Overweight E66.3 S/P laparoscopic sleeve gastrectomy Z98.84
[2022-12-24 12:59] VITALS: BP 100/56; PULSE 52; TEMP 36.6; O2SAT 97; BMI 28.7
== END 2022-12-24 13:32 | disposition home or self-care (01) ==
PROVIDERS: Visit Provider Physician Assistant Surgical
DX: E66.3 Overweight (principal); Z98.84 Bariatric surgery status
CPT/HCPCS: 99214

== ENCOUNTER → 2022-12-24 12:46 | Outpatient (BNVA) | payer MEDICAID, SELFPAY | PROVIDERS: Visit Provider Physician Assistant Surgical | DX: E66.3 Overweight (principal); Z68.28 Body mass index [BMI] 28.0-28.9, adult; Z98.84 Bariatric surgery status | CPT/HCPCS: 99214 ==

== ENCOUNTER 2023-01-01 13:01 | Outpatient (AMB) | payer MEDICAID, SELFPAY ==
--- NOTE | 2023-01-01 13:03 | A.OFFVIS_ITS ---
Intake Intake Visit Reasons: (OV) [place] [facility] [place] Allergies Seasonal Allergies Allergy (Mild, Verified 12/24/22 13:00) Itchy Eyes HPI Nutrition Presentation [place] [facility] [place] Preop weight weight on 03/16/21 182# weight on 08/23/2022 165# - BMI of 26.6 last weight 177# Reason for consult elevated BMI Diet Assmnt Details Pt would like help understanding what can/should not eat Shares she struggles with emotional eating Skips breakfast lunch: meat and rice dinner: meat (shellfish, chicken) and rice snacks: cake, sweets, bread Dietary counseling reduction Diagnosis0 Nutrition problem #1 overweight/obesity As related to (etiology) #1 excess energy intake and physical inactivity As evidenced by (sign/symptom) #1 high BMI Nutrition problem #2 food nutri know defi As related to (etiology) #2 unsure how to apply info As evidenced by (sign/symptom) #2 knowledge deficit of diet Monitoring/Goals Nutrition problem monitoring total energy intake, level of knowledge/skill, total PRO intake, total CHO intake and weight Outcome progress progressing Learning/Education Readiness to learn good Stages of change action Educational materials provided Yes Most Recent Diabetes Results: Cholesterol 187 mg/dL 08/31/22 HDL Cholesterol 63 mg/dL 08/31/22 Triglycerides 41 mg/dL 08/31/22 Creatinine 0.62 mg/dL (0.5-1.4) 08/31/22 Blood Urea Nitrogen 15 mg/dL (9-16) 08/31/22 Sodium 144 mmol/L (135-145) 08/31/22 Potassium 3.6 mmol/L (3.3-5.1) 08/31/22 Chloride 108 mmol/L (96-108) 08/31/22 Carbon Dioxide 27 mmol/L (22-29) 08/31/22 Calcium 9.9 mg/dL (8.4-10.2) 08/31/22 AST 19 U/L (5-31) 08/31/22 ALT 26 U/L (0-31) 08/31/22 Total Protein 7.2 g/dL (6.5-8.0) 08/31/22 Albumin 4.5 g/dL (3.5-5.0) 08/31/22 [facility] Medical History Depression GERD (gastroesophageal reflux disease) Hx of bipolar disorder Panic attack Surgical History H/O parathyroidectomy History of endometrial ablation History of esophagogastroduodenoscopy (EGD) History of sleeve gastrectomy History of tonsillectomy and adenoidectomy Hx of tubal ligation Family History Mother Heart disease Arthritis Father Liver disease Herniated disc Brother No problems noted. Brother No problems noted. Brother No problems noted. Sister Diabetes Sister Migraine Sister HIV disease Sister No problems noted. Sister No problems noted. Daughter Asthma Son No problems noted. Paternal Aunt Breast cancer Social History Household Members: Family Housing: Apartment Are you a primary caregiver services home to a significant other at home: No Do you presently have visiting nurse or other home services: No Alcohol intake: never Patient Tobacco Use Status: Former Tobacco user Quit Date: 2018 Tobacco use type: Cigarette service: No Current occupational status: unemployed Female Reproductive History Menstrual Age of Menarche: 13 Assessment & Plan Assessment & Plan (1) Overweight: Code(s): E66.3 - Overweight Patient Instructions: educated on portion control post bariatric surgery. Also provided food lists and bariatric portion plate visual. Encouraged having some protein for breakfast (shake or bar for example). f/u 3 months Coding Level of Care Code Nutr Indiv Subseq (29093) Diagnoses Overweight E66.3 Time Spent (min) 30
== END 2023-01-01 14:36 | disposition home or self-care (01) ==
PROVIDERS: PCP Internal Medicine; Visit Provider Dietitian, Registered
DX: E66.3 Overweight (principal)

== ENCOUNTER → 2023-01-01 13:01 | Outpatient (BNVA) | payer MEDICAID, SELFPAY | PROVIDERS: PCP Internal Medicine; Visit Provider Dietitian, Registered | DX: E66.3 Overweight (principal); Z71.3 Dietary counseling and surveillance | CPT/HCPCS: 97803 ==

== ENCOUNTER → 2023-05-06 14:28 | Outpatient (BNVA) | payer MEDICAID, SELFPAY | PROVIDERS: PCP Internal Medicine; Visit Provider Dietitian, Registered | DX: E66.9 Obesity, unspecified (principal) | CPT/HCPCS: 73564; 97803 ==

== ENCOUNTER 2023-07-05 11:02 | Emergency (ER) | payer MEDICAID, SELFPAY ==
--- NOTE | ~2023-07-05 | XR_ITS ---
EXAMINATION: XR CHEST CLINICAL INFORMATION: Chest pain COMPARISON: None available. TECHNIQUE: Frontal view of the chest was obtained. FINDINGS: No significant abnormality is noted involving the heart, lungs, mediastinum, bony thorax or soft tissues. XR/XR chest 1V IMPRESSION: Unremarkable chest exam
--- NOTE | ~2023-07-05 | US_ITS ---
EXAMINATION: US ABDOMEN LIMITED CLINICAL INFORMATION: Right upper quadrant abdominal pain, anorexia. COMPARISON: None available. TECHNIQUE: Real-time imaging of the right upper quadrant abdominal viscera. FINDINGS: PANCREAS: Normal. LIVER: The liver is normal in size. The liver contour is normal. Parenchymal echogenicity is slightly increased. No focal hepatic lesion. There is no intrahepatic biliary duct dilatation seen. GALLBLADDER: Other wall thickness is 0.2 cm. The gallbladder is physiologically distended without evidence of stones, sludge, polyps, wall thickening or pericholecystic fluid. COMMON BILE DUCT: Normal in caliber measuring 0.3 cm in diameter. RIGHT KIDNEY: Normal. No hydronephrosis. No renal calculi or focal parenchymal lesions. The kidney measures 10.6 cm in maximum dimension. FREE FLUID: None. US/US abdomen limited IMPRESSION: 1. Slightly echogenic liver without focal lesion. 2. Visualized pancreas, gallbladder, CBD and right kidney is unremarkable.
[2023-07-05 11:07] VITALS: BP 96/57; PULSE 81; RESP 16; TEMP 36.9; O2SAT 99; BMI 28.8
--- NOTE | 2023-07-05 11:30 | ECG_ITS ---
Test Reason : CP Blood Pressure : / mmHG Vent. Rate : 069 BPM Atrial Rate : 069 BPM P-R Int : 152 ms QRS Dur : 086 ms QT Int : 378 ms P-R-T Axes : 009 038 010 degrees QTc Int : 405 ms Normal sinus rhythm Normal ECG When compared with ECG of 13-JUL-2020 13:45, No significant change was found Referred By: Luisa Joyner Electronically Signed By:Jayson Cheney
[2023-07-05 11:31] LABS: IDNOW Serial# 08D9AD1C; Strep A Nucleic Acid Positive (Negative)
[2023-07-05 11:40] LABS: COVID-19 Test Negative (Negative); IDNOW Serial# 58CA691E
--- NOTE | 2023-07-05 11:41 | ED_ITS ---
HPI - General Adult General Chief complaint: General Medical Stated complaint: body aches sore throat multiple complaints Time Seen by Provider: 07/05/23 11:14 Source: patient, RN notes reviewed and old records reviewed Mode of arrival: ambulatory History of Present Illness HPI narrative: 42-year-old female with a past medical history of GERD, depression, bipolar, panic attacks, presenting to the ED complaining body aches, myalgias, right ear pain, sore throat, right-sided abdominal pain, chest pain x yesterday. Denies cough, SOB, drainage from ear, difficulty or inability to swallow, recent travel, sick contacts, nausea/vomiting or diarrhea, dysuria/hematuria Related Data Home Medications Medication Instructions Recorded Confirmed fluticasone propionate 50 1 spray intranasal BID 04/11/22 12/24/22 mcg/actuation nasal spray,suspension multivitamin 1 tab PO DAILY 08/23/22 12/24/22 amitriptyline 10 mg tablet 10 mg PO BEDTIME 12/24/22 12/24/22 bupropion HCl 150 mg tablet,12 hr 150 mg PO DAILY 12/24/22 12/24/22 sustained-release hydroxyzine HCl 25 mg tablet 25 mg PO BID PRN attention deficit 12/24/22 12/24/22 hyperactivity disorder sumatriptan succinate 25 mg tablet 0 mg PO 12/24/22 12/24/22 Previous Rx's Medication Instructions Recorded cholecalciferol (vitamin D3) 25 25 mcg PO DAILY #90 caps 09/12/22 mcg (1,000 unit) capsule vitamin A palmitate 3,000 mcg 10,000 unit PO DAILY #90 caps 09/12/22 (10,000 unit) capsule Allergies Allergy/AdvReac Type Severity Reaction Status Date / Time Seasonal Allergies Allergy Mild Itchy Eyes Verified 12/24/22 13:00 Review of Systems 2 Review of Systems: Constitutional: No Fever, No Chills, +fatigue ENT/Mouth: + Ear Pain, No Nasal Congestion, No Sinus Pain, No Hoarseness, + sore throat, + Rhinorrhea, No Swallowing Difficulty Cardiovascular: + Chest Pain, No SOB Respiratory: No Cough, No Sputum, No Wheezing Gastrointestinal: No Nausea, No Vomiting, No Diarrhea, No Constipation, + Abdominal pain Genitourinary: No Dysuria, No Urinary Frequency, No Hematuria, No Urinary Incontinence/retention, No Urgency, No Flank Pain Musculoskeletal: No joint pain, + Myalgias, No Joint Swelling Skin: No Skin Lesions, No rash Neuro: No Weakness, No Numbness, No Paresthesias Yes all other systems are reviewed and are negative Constitutional: Constitutional: Reports as per [facility] Past Medical History Attestation statement: The following information was validated with the patient. Source: old records reviewed Medical History GERD (gastroesophageal reflux disease) Depression Hx of bipolar disorder Panic attack Surgical History History of sleeve gastrectomy History of endometrial ablation H/O parathyroidectomy History of esophagogastroduodenoscopy (EGD) History of tonsillectomy and adenoidectomy Hx of tubal ligation Family History Family History Mother Heart disease Arthritis Father Liver disease Herniated disc Brother No problems noted. Brother No problems noted. Brother No problems noted. Sister Diabetes Sister Migraine Sister HIV disease Sister No problems noted. Sister No problems noted. Daughter Asthma Son No problems noted. Paternal Aunt Breast cancer Social History Social History Household Members: Family Housing: Apartment Are you a primary resident care aid to a significant other at home: No Do you presently have visiting nurse or other home services: No Alcohol intake: never Patient Tobacco Use Status: Former Tobacco user Quit Date: 2018 Tobacco use type: Cigarette Smoked in Last 30 Days: No Advance Directives: No Advance Directives Information Provided: Yes service: No Current occupational status: unemployed Physical Exam ED Vital Signs: Vital Signs - 24 hr 07/05/23 11:07 Temperature 98.4 F Pulse Rate 81 Respiratory Rate 16 Blood Pressure 96/57 L Pulse Oximetry 99 Oxygen Delivery Method Room Air BMI result Body Mass Index 28.8 Const General: cooperative, healthy appearing and no acute distress Orientation/consciousness: patient oriented x3 Limitations: no limitations HENMT Head: Yes normal to inspection and Yes atraumatic Ears: hearing grossly normal bilaterally, external ears normal, TM's normal bilaterally and mastoids normal General nose exam: Normal external nose present Face and sinus: Yes normal facial exam Mouth: Normal oral and palatal mucosa present Throat: Yes uvula midline, Yes abnormal tonsil (Erythematous. No exudates), No peritonsillar mass, Yes posterior oropharynx abnormal (Erythematous), No uvula laterally displaced and No uvular edema Eyes General: appearance normal, both eyes and all related structures EOM: EOMs intact bilaterally Neck Neck: Yes normal visual inspection and Yes no meningeal signs Resp Effort & Inspection: normal respiratory effort and no respiratory distress Auscultation: clear to auscultation bilaterally, no crackles, no rhonchi and no wheezes Cardio Rate: regular rate Heart sounds: S1 normal heart sound present and S2 normal heart sound present GI Inspection: Yes normal to inspection Palpation (GI): Soft to palpation, Tenderness to palpation present (GI) in the RUQ; with no rebound tenderness, no guarding and not rigid General: Yes no CVA tenderness Back/Spine/Pelvis Back: no CVA tenderness Skin Rashes: no rashes Wounds: no wounds Neuro General: patient oriented x3, gait normal, tone normal, moves all extremities, no meningeal signs and no focal motor deficits Cranial nerves: Yes CN's II-XII intact bilaterally Gait exam (Neuro): Normal gait present Extrem General: Yes normal to inspection Course Course Course Narrative: -labs reassuring. Troponin negative. -UA contaminated will wait on culture prior to initiating antibiotics -strep throat positive US abdomen limited IMPRESSION: 1. Slightly echogenic liver without focal lesion. 2. Visualized pancreas, gallbladder, CBD and right kidney is unremarkable. XR chest 1V IMPRESSION: Unremarkable chest exam Results discussed with patient including worrisome signs and symptoms and strict return precautions, and when to return to the emergency department. They verbalized understanding and feel safe for discharge at this time. Medical Decision Making Medical Decision Making MDM Narrative: 42-year-old female with a past medical history of GERD, depression, bipolar, panic attacks, presenting to the ED complaining body aches, myalgias, right ear pain, sore throat, right-sided abdominal pain, chest pain x yesterday. On exam vital signs stable, NAD, nontoxic appearing, posterior oropharynx/tonsils with erythema, no exudates, uvula midline, abdomen soft with RUQ tenderness, no rebound or guarding, no CVAT. Lungs CTA. Concern for viral illness vs pharyngitis vs cholecystitis/cholelithiasis or pancreatitis vs costochondritis. Rule out pneumonia. Lower suspicion for PE/ACS, DVT, appendicitis/diverticulitis. No evidence of retropharyngeal abscess/[employer] BENCH STAMPING or acute otitis Plan: EKG, labs, UA, CXR, abdomen ultrasound, re-evaluate Please refer to course for remaining clinical decision making, interpretation of labs/imaging results, and discussions with consultants and/or family members. Differential Diagnosis Differential Diagnoses: The differential diagnosis associated with the presentation includes As above Admission/Observation Consideration of admission/observation: Escalation of care including admission/observation considered Lab Data MDM Lab Attestation statement: I reviewed the patient's lab results. 07/05/23 11:49 07/05/23 11:49 Labs: Lab Results 07/05/23 07/05/23 07/05/23 Range/Units 11:16 11:45 11:49 WBC 9.3 (4.8-10.8) X10*3/uL RBC 4.16 L (4.20-5.50) X10*6/uL Hgb 12.7 (12.0-16.0) g/dl Hct 37.1 (37.0-47.0) % MCV 89.2 (80.0-98.0) fL MCH 30.5 (27.0-33.0) pg MCHC 34.2 (31.0-35.0) g/dl RDW 11.8 (11.0-16.0) % Plt Count 248 (160-400) X10*3/uL MPV 9.7 (9.4-12.3) fL Immature Gran % (Auto) 0.4 (0.0-0.4) % Neut % (Auto) 84.6 H (45-73) % Lymph % (Auto) 7.2 L (20-40) % [place] % (Auto) 7.7 (2-11) % Eos % (Auto) 0.0 (0-4) % Baso % (Auto) 0.1 (0-2) % Lymph # (Auto) 0.7 L (1.2-4.9) X10*3/uL [place] # (Auto) 0.7 (0.1-1.2) X10*3/uL Eos # (Auto) 0.0 (0.0-0.4) X10*3/uL Baso # (Auto) 0.0 (0.0-0.2) X10*3/uL Abs Immat Gran (auto) 0.04 H (0.00-0.03) X10*3/uL Absolute Neuts (auto) 7.9 (2.0-8.3) x10*3/uL Absolute Nucleated RBC 0.000 (0.0-0.012) X10*3/uL Nucleated RBC % (auto) 0.0 (0.0-0.2) /100WBC Sodium 139 (135-145) mmol/L Potassium 3.5 (3.3-5.1) mmol/L Chloride 105 (96-108) mmol/L Carbon Dioxide 24 (22-29) mmol/L Anion Gap 14 (12-20) BUN 14 (9-16) mg/dL Creatinine 0.71 (0.5-1.4) mg/dL Estim Creat Clear Calc 110.7 Estimated GFR > 60 Random Glucose 99 (60-115) mg/dL Calcium 10.1 (8.4-10.2) mg/dL Magnesium 1.9 (1.6-2.6) mg/dL Total Bilirubin 1.0 (0.0-1.0) mg/dL Direct Bilirubin 0.4 (0.0-0.5) mg/dL AST 25 (5-31) U/L ALT 39 H (0-31) U/L Alkaline Phosphatase 86 (39-117) U/L Troponin I High Sens < 2.7 (<3.5-17.0) ng/L Total Protein 7.7 (6.5-8.0) g/dL Albumin 4.4 (3.5-5.0) g/dL Lipase 11 (8-78) U/L Urine Color Dark Yellow Urine Appearance Cloudy Urine pH 5.0 (5.0-9.0) Ur Specific [place] >= 1.030 H (1.005-1.025) Urine Protein 100 (2+) H (Neg-Trace) mg/dL Urine Glucose (UA) Negative (Negative) mg/dL Urine Ketones 15 (Negative) mg/dL Urine Blood Negative (Negative) Urine Nitrite Positive H (Negative) Ur Leukocyte Esterase Small (1+) H (Negative) Urine RBC 0-2 (0-2) /HPF Urine WBC 0-5 (0-5) /HPF Ur Squamous Epith Cells 11-20 (0-2) /HPF Urine Bacteria 1+ (None Seen) Hyaline Casts 3-5 (0-2) /LPF Urine Test NEGATIVE (NEGATIVE) COVID-19 ([facility]) Negative (Negative) COVID-19 Clin Com See Note Influenza Type A (GURINDER) Negative (Negative) Influenza Type B (GURINDER) Negative (Negative) Influenza A & B Note See Note S. pyogenes GrpA GURINDER Positive A (Negative) Independent Interpretation I performed an independent interpretation of an: EKG (My interpretation EKG normal sinus rhythm rate of 69. QRS duration 86. QTC 4 or 5. No STEMI. Inverted T-wave in V1 through V3. No STEMI) Radiology Impression Discussion of test interpretation with radiology: I have reviewed the radiologist's reading. External Record Review External record reviewed: Inpatient record, Office record, Outpatient record, Prior outpatient labs, Prior outpatient radiology, Primary care record and Outside ED record Tests considered The following testing was considered but not selected: As above Prescription Management I considered prescription management with: Pain Medication Discharge Plan Discharge Clinical Impression: Strep throat, Upper abdominal pain Patient Disposition: Home, Self-Care Prescriptions: No Action vitamin A palmitate 3,000 mcg (10,000 unit) capsule 10,000 unit PO DAILY Qty: 90 3RF cholecalciferol (vitamin D3) 25 mcg (1,000 unit) capsule 25 mcg PO DAILY Qty: 90 3RF fluticasone propionate 50 mcg/actuation spray,suspension 1 spray intranasal BID Rx Instructions: administer into each nostril multivitamin Tablet 1 tab PO DAILY bupropion HCl 150 mg tablet sustained-release 12 hr 150 mg PO DAILY amitriptyline 10 mg tablet 10 mg PO BEDTIME sumatriptan succinate 25 mg tablet 0 mg PO hydroxyzine HCl 25 mg tablet 25 mg PO BID PRN (Reason: attention deficit hyperactivity disorder)
[2023-07-05 11:42] LABS: IDNOW Serial# 152EDE1D; Influenza A Negative (Negative); Influenza B2 Negative (Negative)
[2023-07-05 11:53] LABS: MANUAL DIFF FLAG NO
[2023-07-05 11:57] LABS: Basophils Percent Auto 0.1 % (0-2); Hematocrit 37.1 % (37.0-47.0); Hemoglobin 12.7 g/dl (12.0-16.0); Imm Gran Abs Auto 0.04 X10*3/uL (0.00-0.03); Imm Gran Pct Auto 0.4 % (0.0-0.4); Lymphocytes Absolute Auto 0.7 X10*3/uL (1.2-4.9); Lymphocytes Percent Auto 7.2 % (20-40); Mean Corpuscular HGB Conc 34.2 g/dl (31.0-35.0); Mean Corpuscular Hemoglobin 30.5 pg (27.0-33.0); Mean Corpuscular Volume 89.2 fL (80.0-98.0); Mean Platelet Volume 9.7 fL (9.4-12.3); Monocytes Absolute Auto 0.7 X10*3/uL (0.1-1.2); Monocytes Percent Auto 7.7 % (2-11); Neutrophils Absolute Auto 7.9 x10*3/uL (2.0-8.3); Neutrophils Percent Auto 84.6 % (45-73); Platelet Count 248 X10*3/uL (160-400); Red Blood Count 4.16 X10*6/uL (4.20-5.50); Red Cell Distribution Width 11.8 % (11.0-16.0); White Blood Count 9.3 X10*3/uL (4.8-10.8)
[2023-07-05 11:58] LABS: Appearance Urine Cloudy; Color Urine Dark Yellow; Glucose Urine UA Negative (Negative); Leukocyte Esterase Urine Small (1+) (Negative); Nitrite Urine Positive (Negative); Specific Gravity - Urine >= 1.030 (1.005-1.025); UMIC TRIGGER UACC YES; UPreg QC Valid YES; Urine Blood Negative (Negative); Urine Ketones 15 mg/dL (Negative); Urine Pregnancy NEGATIVE (NEGATIVE); Urine Protein 100 (2+) mg/dL (Neg-Trace)
[2023-07-05 12:10] LABS: Bacteria Urine 1+ (None Seen); RBC Urine 0-2 /HPF (0-2); UACC Culture Trigger YES; WBC Urine 0-5 /HPF (0-5)
[2023-07-05 12:11] LABS: Alanine Aminotransferase 39 U/L (0-31); Albumin Level 4.4 g/dL (3.5-5.0); Alkaline Phosphatase 86 U/L (39-117); Anion Gap 14 (12-20); Aspartate Amino Transferase 25 U/L (5-31); Bilirubin Direct 0.4 mg/dL (0.0-0.5); Blood Urea Nitrogen 14 mg/dL (9-16); Calcium 10.1 mg/dL (8.4-10.2); Carbon Dioxide 24 mmol/L (22-29); Chloride 105 mmol/L (96-108); Creatinine Clr Calc Pharmacy 110.7; Estimated Glomerular Filt Rate > 60; Glucose Random 99 mg/dL (60-115); Lipase 11 U/L (8-78); Magnesium 1.9 mg/dL (1.6-2.6); Potassium 3.5 mmol/L (3.3-5.1); Sodium 139 mmol/L (135-145); Total Protein 7.7 g/dL (6.5-8.0)
[2023-07-05 12:22] LABS: Troponin-I High Sensitivity < 2.7 ng/L (<3.5-17.0)
[2023-07-05] MEDS: NaPROXEN 500 MG TABLET PO (13:32)
== END 2023-07-05 13:34 | disposition home or self-care (01) ==
PROVIDERS: Physician Assistant; Emergency Provider Emergency Medicine; PCP Internal Medicine
DX: J02.0 Streptococcal pharyngitis (principal); R10.11 Right upper quadrant pain; Z11.52 Encounter for screening for COVID-19
CPT/HCPCS: 36415; 71045; 76705; 80048; 80076; 81001; 81003; 81025; 83690; 83735; 84484; 85025; 87086; 87502; 87635; 87651; 93005; 99284

== ENCOUNTER → 2023-07-05 11:30 | Outpatient (BNV) | payer MEDICAID, SELFPAY | PROVIDERS: Emergency Provider Emergency Medicine; PCP Internal Medicine; Visit Provider Internal Medicine Cardiovascular Disease | DX: R07.9 Chest pain, unspecified (principal) | CPT/HCPCS: 93010 ==

== ENCOUNTER 2023-08-05 13:16 | Outpatient (AMB) | payer MEDICAID, SELFPAY ==
--- NOTE | 2023-08-05 13:06 | MHC.AMNUTRGE ---
Intake Intake Visit Reasons: (TELEPHONE) PO [facility] [place] 12/22/20 Allergies Seasonal Allergies Allergy (Mild, Verified 12/24/22 13:00) Itchy Eyes HPI Nutrition Presentation Details [facility] [place] 12/22/2020 Preop weight weight on 03/16/21 182# weight on 08/23/2022 165# - BMI of 26.6 current weight 180 Reason for consult elevated BMI Diet Assmnt Details ham, cheese, 1 slice bread lunch: skips or HotPocket or salad and chicken dinner: meat (shellfish, chicken) and rice , sometimes veg snack: 2 jello per day , 1 yogurt Drinks orange juice, apple juice and crystal light. Vitamins: none, reports last month she ran out and hasn't purchased since. Dietary counseling reduction Diagnosis Nutrition problem #1 undesirable food choices As related to (etiology) #1 unwilling to learn/apply As evidenced by (sign/symptom) #1 noncompliance to diet/hx Nutrition problem #2 food nutri know defi As related to (etiology) #2 unsure how to apply info As evidenced by (sign/symptom) #2 knowledge deficit of diet Monitoring/Goals Nutrition problem monitoring total energy intake, level of knowledge/skill, total PRO intake, total CHO intake and weight Learning/Education Educational materials provided Yes Most Recent Diabetes Results: Cholesterol 187 mg/dL 08/31/22 HDL Cholesterol 63 mg/dL 08/31/22 Triglycerides 41 mg/dL 08/31/22 Creatinine 0.71 mg/dL (0.5-1.4) 07/05/23 Blood Urea Nitrogen 14 mg/dL (9-16) 07/05/23 Sodium 139 mmol/L (135-145) 07/05/23 Potassium 3.5 mmol/L (3.3-5.1) 07/05/23 Chloride 105 mmol/L (96-108) 07/05/23 Carbon Dioxide 24 mmol/L (22-29) 07/05/23 Calcium 10.1 mg/dL (8.4-10.2) 07/05/23 AST 25 U/L (5-31) 07/05/23 ALT 39 U/L (0-31) H 07/05/23 Total Protein 7.7 g/dL (6.5-8.0) 07/05/23 Albumin 4.4 g/dL (3.5-5.0) 07/05/23 [facility] Medical History GERD (gastroesophageal reflux disease) Depression Hx of bipolar disorder Panic attack Surgical History History of sleeve gastrectomy History of endometrial ablation H/O parathyroidectomy History of esophagogastroduodenoscopy (EGD) History of tonsillectomy and adenoidectomy Hx of tubal ligation Family History Mother Heart disease Arthritis Father Liver disease Herniated disc Brother No problems noted. Brother No problems noted. Brother No problems noted. Sister Diabetes Sister Migraine Sister HIV disease Sister No problems noted. Sister No problems noted. Daughter Asthma Son No problems noted. Paternal Aunt Breast cancer Social History Household Members: Family Housing: Apartment Are you a primary respiratory care assistant to a significant other at home: No Do you presently have visiting nurse or other home services: No Alcohol intake: never Patient Tobacco Use Status: Former Tobacco user Quit Date: 2018 Tobacco use type: Cigarette service: No Current occupational status: unemployed Female Reproductive History Menstrual Age of Menarche: 13 Assessment & Plan Assessment & Plan (1) Overweight (BMI 25.0-29.9): Code(s): E66.3 - Overweight Plan Educated pt on avoiding juice, avoiding processed meals such as hot pockets and gave lots of quick , high protein meal ideas. Restart bariatric MVI . needs routine PA appt in December. Telehealth Telehealth Location of provider rendering services: practice address Location of patient: address on file Patient Identification confirmed using: Name, : Yes Telehealth method: voice only Patient verbally consented to treatment: Yes Patient verbally consented to billing insurance company: Yes Patient informed of any privacy concerns related to visit: Yes Minutes spent on Phone/Video with Pt.: 20 Coding Level of Care Code Nutr Indiv Subseq (81792) Diagnoses Overweight (BMI 25.0-29.9) E66.3 Time Spent (min) 20
== END 2023-08-05 13:20 | disposition home or self-care (01) ==
LOC: HO.HBS 13:16
PROVIDERS: PCP Internal Medicine; Visit Provider Dietitian, Registered
DX: E66.3 Overweight (principal)

== ENCOUNTER → 2023-08-05 13:16 | Outpatient (BNVA) | payer MEDICAID, SELFPAY | PROVIDERS: PCP Internal Medicine; Visit Provider Dietitian, Registered | DX: E66.3 Overweight (principal) | CPT/HCPCS: 97803 ==

== ENCOUNTER 2023-12-24 12:54 | Outpatient (AMB) | payer MEDICAID, SELFPAY ==
--- NOTE | 2023-12-24 13:04 | MHC.OFFVISWM ---
VS Expanded 12/24/23 13:12 BP 90/54 L Blood Pressure Location Rt brachial Blood Pressure Position Sitting Pulse 62 Pulse Source Pulse Oximeter Temp 96.1 F L Temperature Source Tympanic Pulse Oximetry 95 Oxygen Delivery Method Room Air Height 5 ft 4.5 in Weight 178 lb 3.2 oz BMI 30.1 Body Fat % 32.2 Body Fat Mass 57.4 Fat Free Mass 57.4 Visceral Fat Rating 6.0 Body Water % 48.4 Body Water Mass 86.2 Muscle Mass/Score 114.6 Basal Metabolic Rate/Score 1,631 Intake Visit Reasons: (OV) PO [facility] 12/22/20 Allergies Seasonal Allergies Allergy (Mild, Verified 12/24/23 13:06) Itchy Eyes Medication List - Last Reconciled 12/24/23 by EJ Leon amitriptyline 10 mg PO BEDTIME bupropion HCl SR 150 mg PO DAILY cholecalciferol (vitamin D3) (Vitamin D3) 25 mcg PO DAILY fluticasone propionate 50 mcg/actuation 1 spray intranasal BID hydroxyzine HCl 25 mg PO BID PRN multivitamin 1 tab PO DAILY sumatriptan succinate 0 mg PO vitamin A palmitate 10,000 units PO DAILY HPI Comments Details: This?is a?43?yo female who is s/p LSG 12/22/2020. Presents for 3 year post op visit. Weight stable since last OV in July.? No complaints of nausea, emesis, reflux, or constipation. Occasional abdominal pain with certain foods. Present meal plan includes: sometimes eats breakfast, sometimes skips trying to drink Atkins premade protein shakes, 15g protein- 2 shakes also uses Atkins protein bars- 1 per day will have a small dinner- small piece of meat with rice Exercise routine includes: goes to gym- weight training 2 or 3x/week PFSH Medical History GERD (gastroesophageal reflux disease) Depression Hx of bipolar disorder Panic attack Surgical History History of sleeve gastrectomy History of endometrial ablation H/O parathyroidectomy History of esophagogastroduodenoscopy (EGD) History of tonsillectomy and adenoidectomy Hx of tubal ligation Family History Mother Heart disease Arthritis Father Liver disease Herniated disc Brother No problems noted. Brother No problems noted. Brother No problems noted. Sister Diabetes Sister Migraine Sister HIV disease Sister No problems noted. Sister No problems noted. Daughter Asthma Son No problems noted. Paternal Aunt Breast cancer Social History Household Members: Family Housing: Apartment Are you a primary child care worker to a significant other at home: No Do you presently have visiting nurse or other home services: No Alcohol intake: never Patient Tobacco Use Status: Former Tobacco user Tobacco use type: Cigarette service: No Current occupational status: unemployed Female Reproductive History Menstrual Age of Menarche: 13 Physical Exam Vital Signs: Last Vital Signs Temp 96.1 F L 12/24/23 13:12 Pulse 62 12/24/23 13:12 BP 90/54 L 12/24/23 13:12 Pulse Ox 95 12/24/23 13:12 Oxygen Delivery Method Room Air 12/24/23 13:12 BMI result Body Mass Index 30.1 Assessment & Plan Assessment & Plan (1) Overweight: Code(s): E66.3 - Overweight Category: Medical (2) S/P laparoscopic sleeve gastrectomy: Code(s): Z98.84 - Bariatric surgery status Category: Medical Plan Pt is likely too low in overall protein intake, would recommend 2 shakes and 2 bars plus small meal of protein +/- veg. Needs to increase exercise to goal of 2000cal/week, pt agreeable to treadmill/walking. Labs ordered. RTC 4 months. I spent a total of 30 minutes reviewing/updating records, examining the patient and counseling the patient on weight management as detailed above. Orders: Orders Insulin Today E66.3 - Overweight, Z98.84 - Bariatric surgery status Hemoglobin A1c Today E66.3 - Overweight, Z98.84 - Bariatric surgery status IRON PROFILE Today E66.3 - Overweight, Z98.84 - Bariatric surgery status Vitamin B12 and Folate Today E66.3 - Overweight, Z98.84 - Bariatric surgery status Zinc Today E66.3 - Overweight, Z98.84 - Bariatric surgery status C Reactive Protein Today E66.3 - Overweight, Z98.84 - Bariatric surgery status Vitamin B1 Today E66.3 - Overweight, Z98.84 - Bariatric surgery status Ferritin Today E66.3 - Overweight, Z98.84 - Bariatric surgery status Vitamin D 25-OH Total Today E66.3 - Overweight, Z98.84 - Bariatric surgery status Complete Blood Count Auto Diff Today E66.3 - Overweight, Z98.84 - Bariatric surgery status Lipid Panel Today E66.3 - Overweight, Z98.84 - Bariatric surgery status Comprehensive Met. Panel Today E66.3 - Overweight, Z98.84 - Bariatric surgery status Vitamin A Today E66.3 - Overweight, Z98.84 - Bariatric surgery status TSH reflex Free T4 Today E66.3 - Overweight, Z98.84 - Bariatric surgery status
[2023-12-24 13:12] VITALS: BP 90/54; PULSE 62; TEMP 35.6; O2SAT 95; BMI 30.1
== END 2023-12-24 13:51 | disposition home or self-care (01) ==
PROVIDERS: PCP Internal Medicine; Visit Provider Physician Assistant Surgical
DX: E66.3 Overweight (principal); Z98.84 Bariatric surgery status
CPT/HCPCS: 99214

== ENCOUNTER → 2023-12-24 12:54 | Outpatient (BNVA) | payer MEDICAID, SELFPAY | PROVIDERS: PCP Internal Medicine; Visit Provider Physician Assistant Surgical | DX: E66.3 Overweight (principal); Z98.84 Bariatric surgery status | CPT/HCPCS: 99212 ==

== ENCOUNTER 2024-01-24 14:18 | Outpatient (REF) | payer MEDICAID, SELFPAY ==
[2024-01-24 14:35] LABS: MANUAL DIFF FLAG NO
[2024-01-24 15:31] LABS: Basophils Percent Auto 0.4 % (0-2); Eosinophils Percent Auto 0.8 % (0-4); Hematocrit 40.2 % (37.0-47.0); Imm Gran Abs Auto 0.01 X10*3/uL (0.00-0.03); Imm Gran Pct Auto 0.2 % (0.0-0.4); Lymphocytes Absolute Auto 1.6 X10*3/uL (1.2-4.9); Lymphocytes Percent Auto 33.7 % (20-40); Mean Corpuscular HGB Conc 34.8 g/dl (31.0-35.0); Mean Corpuscular Volume 89.1 fL (80.0-98.0); Mean Platelet Volume 9.9 fL (9.4-12.3); Monocytes Absolute Auto 0.5 X10*3/uL (0.1-1.2); Monocytes Percent Auto 9.7 % (2-11); Neutrophils Absolute Auto 2.7 x10*3/uL (2.0-8.3); Neutrophils Percent Auto 55.2 % (45-73); Platelet Count 262 X10*3/uL (160-400); Red Blood Count 4.51 X10*6/uL (4.20-5.50); White Blood Count 4.8 X10*3/uL (4.8-10.8)
[2024-01-24 15:47] LABS: Estimated Average Glucose 97 mg/dL
[2024-01-24 16:02] LABS: Alanine Aminotransferase 28 U/L (0-31); Albumin Level 4.8 g/dL (3.5-5.0); Alkaline Phosphatase 95 U/L (39-117); Anion Gap 12 (12-20); Aspartate Amino Transferase 19 U/L (5-31); Bilirubin Total 0.8 mg/dL (0.0-1.0); Blood Urea Nitrogen 13 mg/dL (9-16); C Reactive Protein < 0.10 mg/dL (< or = 0.50); Calcium 10.2 mg/dL (8.4-10.2); Carbon Dioxide 27 mmol/L (22-29); Chloride 108 mmol/L (96-108); Cholesterol 184 mg/dL (<200); Estimated Glomerular Filt Rate > 60; Glucose Random 84 mg/dL (60-115); HDL Cholesterol 66 mg/dL (>40); Iron 107 mcg/dL (30-160); LDL Cholesterol Calculated 109 mg/dL (<100); Percent Iron Saturation 33 % (15-50); Potassium 3.7 mmol/L (3.3-5.1); Sodium 143 mmol/L (135-145); Total Iron Binding Capacity 325 mcg/dL (228-428); Total Protein 7.8 g/dL (6.5-8.0); Triglycerides 46 mg/dL (<150); Unsaturated Iron Binding 218 ug/dL
[2024-01-24 16:18] LABS: Ferritin 177 ng/mL (10-250); Insulin 2 uU/mL (2-29); TSH reflex Free T4 0.45 uIU/mL (0.32-4.0); Vitamin D 25-OH Total 34.1 ng/mL (>30)
[2024-01-24 16:24] LABS: Folate 8.3 ng/mL (> or = 4.0); Vitamin B12 266 pg/mL (200-900)
[2024-01-29 02:13] LABS: Zinc 70 mcg/dL (60-130)
[2024-01-30 18:33] LABS: Vitamin A 31 mcg/dL (38-98)
[2024-02-01 13:48] LABS: Vitamin B1 9 nmol/L (8-30)
== END 2024-01-24 14:19 | disposition home or self-care (01) ==
LOC: HO.LAB 14:18
PROVIDERS: Visit Provider Physician Assistant Surgical
DX: E66.3 Overweight (principal); Z98.84 Bariatric surgery status
CPT/HCPCS: 36415; 80053; 80061; 82306; 82607; 82728; 82746; 83036; 83525; 83540; 84425; 84443; 84590; 84630; 85025; 86140

== ENCOUNTER 2024-02-07 13:17 | Outpatient (REF) | payer MEDICAID, SELFPAY ==
--- NOTE | ~2024-02-07 | XR_ITS ---
EXAMINATION: XR KNEE, LEFT CLINICAL INFORMATION: Chronic pain status-post trauma greater than 5 years prior. COMPARISON: None available. TECHNIQUE: AP, lateral, tunnel, and sunrise views of the left knee. FINDINGS: No fracture or joint effusion. Alignment is anatomic. Joint spaces are maintained. No abnormal soft tissue calcification. XR/XR knee LT 4V IMPRESSION: Normal left knee. Electronically signed by: Erickson Merchant MD 02/27/2024 07:14 PM EDT
== END 2024-02-07 13:18 | disposition home or self-care (01) ==
LOC: HO.HHCX 13:17
PROVIDERS: Visit Provider Internal Medicine
DX: M25.562 Pain in left knee (principal); G89.29 Other chronic pain
CPT/HCPCS: 73564

== ENCOUNTER 2024-04-09 12:13 | Outpatient (REF) | payer MEDICAID, SELFPAY ==
[2024-04-09 13:25] LABS: MANUAL DIFF FLAG NO
[2024-04-09 13:42] LABS: Basophils Percent Auto 0.5 % (0-2); Eosinophils Absolute Auto 0.1 X10*3/uL (0.0-0.4); Eosinophils Percent Auto 1.7 % (0-4); Hematocrit 37.3 % (37.0-47.0); Hemoglobin 12.6 g/dl (12.0-16.0); Imm Gran Abs Auto 0.01 X10*3/uL (0.00-0.03); Imm Gran Pct Auto 0.2 % (0.0-0.4); Lymphocytes Absolute Auto 1.5 X10*3/uL (1.2-4.9); Lymphocytes Percent Auto 36.2 % (20-40); Mean Corpuscular HGB Conc 33.8 g/dl (31.0-35.0); Mean Corpuscular Hemoglobin 30.7 pg (27.0-33.0); Mean Platelet Volume 10.9 fL (9.4-12.3); Monocytes Absolute Auto 0.4 X10*3/uL (0.1-1.2); Monocytes Percent Auto 9.8 % (2-11); Neutrophils Absolute Auto 2.1 x10*3/uL (2.0-8.3); Neutrophils Percent Auto 51.6 % (45-73); Platelet Count 233 X10*3/uL (160-400); Red Cell Distribution Width 11.5 % (11.0-16.0); White Blood Count 4.1 X10*3/uL (4.8-10.8)
[2024-04-09 13:47] LABS: Estimated Average Glucose 103 mg/dL; Hemoglobin A1C 108.3564 umol/L; Hemoglobin A1c % 5.2 % (<6.0); Total Hemoglobin (HGBA1C) 3208.0279 umol/L
[2024-04-09 14:07] LABS: Alanine Aminotransferase 23 U/L (0-31); Albumin Level 4.4 g/dL (3.5-5.0); Alkaline Phosphatase 72 U/L (39-117); Anion Gap 14 (12-20); Aspartate Amino Transferase 19 U/L (5-31); Bilirubin Total 0.7 mg/dL (0.0-1.0); Blood Urea Nitrogen 14 mg/dL (9-16); Calcium 10.4 mg/dL (8.4-10.2); Carbon Dioxide 24 mmol/L (22-29); Chloride 108 mmol/L (96-108); Cholesterol 183 mg/dL (<200); Estimated Glomerular Filt Rate > 60; Glucose Random 87 mg/dL (60-115); HDL Cholesterol 62 mg/dL (>40); LDL Cholesterol Calculated 111 mg/dL (<100); Potassium 3.6 mmol/L (3.3-5.1); Sodium 142 mmol/L (135-145); Total Protein 7.3 g/dL (6.5-8.0); Triglycerides 51 mg/dL (<150)
[2024-04-09 14:30] LABS: TSH reflex Free T4 0.84 uIU/mL (0.32-4.0); Vitamin D 25-OH Total 38.3 ng/mL (>30)
[2024-04-10 08:13] LABS: HIV AB/AG Nonreactive (Nonreactive); HIV Num 1 0.05 S/CO (0.00-0.99); ~Hepatitis C Antibody Nonreactive (Nonreactive)
== END 2024-04-09 12:14 | disposition home or self-care (01) ==
LOC: HO.HHCL 12:13
PROVIDERS: Visit Provider Internal Medicine
DX: Z12.31 Encounter for screening mammogram for malignant neoplasm of breast (principal)
CPT/HCPCS: 36415; 80053; 80061; 82306; 83036; 84443; 85025; 86803; 87389

== ENCOUNTER 2024-04-13 09:30 | Outpatient (AMB) | payer MEDICAID, SELFPAY ==
--- NOTE | 2024-04-13 09:50 | MHC.OFFVISWM ---
VS Expanded 04/13/24 10:05 BP 111/58 L Blood Pressure Location Rt brachial Blood Pressure Position Sitting Pulse 60 Pulse Source Pulse Oximeter Temp 98.0 F Temperature Source Temporal Artery Scan Pulse Oximetry 98 Oxygen Delivery Method Room Air Height 5 ft 4.5 in Weight 164 lb 12.8 oz BMI 27.8 Body Fat % 35.7 Body Fat Mass 58.8 Fat Free Mass 105.8 Visceral Fat Rating 7.0 Body Water % 45.8 Body Water Mass 75.4 Muscle Mass/Score 100.6 Basal Metabolic Rate/Score 1,451 Intake Visit Reasons: (OV) PO LSG 12/22/20 Allergies No Known Allergies Allergy (Verified 04/13/24 09:54) Medication List - Last Reconciled 04/13/24 by EJ Leon amitriptyline 10 mg PO BEDTIME bupropion HCl SR 150 mg PO DAILY cholecalciferol (vitamin D3) (Vitamin D3) 25 mcg PO DAILY fluticasone propionate 50 mcg/actuation 1 spray intranasal BID hydroxyzine HCl 25 mg PO BID PRN sumatriptan succinate 0 mg PO HPI Comments Details: This?is a?43?yo female who is s/p LSG 12/22/2020. Presents for 3 year 4 month post op visit. Weight at last visit on 12/24/2023 was 178.2 pounds with a BMI of 30.1, weight today is 164.8 pounds, representing a 13.4 pound weight loss with a BMI today of 27.8.? No complaints of nausea, emesis, reflux, or constipation. Occasional abdominal pain with cold liquids. Present meal plan includes: 2 Atkins shake and 2 bars plus small meal of protein +/- veg having mushroom coffee 3x/week 1 Atkins shake 1 egg will also have meat and vegetables for 1 meal per day, small portion of rice was taking vit D, no MVI Exercise routine includes: has more mobility now with stretching, does home workouts, rounds of intervals [facility] Medical History GERD (gastroesophageal reflux disease) Depression Hx of bipolar disorder Panic attack Surgical History History of sleeve gastrectomy History of endometrial ablation H/O parathyroidectomy History of esophagogastroduodenoscopy (EGD) History of tonsillectomy and adenoidectomy Hx of tubal ligation Family History Mother Heart disease Arthritis Father Liver disease Herniated disc Brother No problems noted. Brother No problems noted. Brother No problems noted. Sister Diabetes Sister Migraine Sister HIV disease Sister No problems noted. Sister No problems noted. Daughter Asthma Son No problems noted. Paternal Aunt Breast cancer Social History Household Members: Family Housing: Apartment Are you a primary patient care coordinator to a significant other at home: No Do you presently have visiting nurse or other home services: No Alcohol intake: never Patient Tobacco Use Status: Former Tobacco user Tobacco use type: Cigarette service: No Current occupational status: unemployed Female Reproductive History Menstrual Age of Menarche: 13 Assessment & Plan Assessment & Plan (1) Overweight: Code(s): E66.3 - Overweight Category: Medical (2) S/P laparoscopic sleeve gastrectomy: Code(s): Z98.84 - Bariatric surgery status Category: Surgical Plan Pt overall doing better on protein intake and exercise but still low on protein, recommended incorporating one additional protein shake each day to get closer to goal. Needs MVI, sent rx. Reviewed labs done in summer, had previously ordered vit A but pt not taking, will reorder. RTC 6 months. I spent a total of 30 minutes reviewing/updating records, examining the patient and counseling the patient on weight management as detailed above. Medications: New [id number]-FA-vit K 45 mg iron- 800 mcg-120 mcg (Bariatric Multivitamins) 1 cap PO .daily in evening 90 caps 3RF
[2024-04-13 10:05] VITALS: BP 111/58; PULSE 60; TEMP 36.7; O2SAT 98; BMI 27.8
== END 2024-04-13 10:22 | disposition home or self-care (01) ==
LOC: HO.HBS 09:31
PROVIDERS: PCP Internal Medicine; Visit Provider Physician Assistant Surgical
DX: E66.3 Overweight (principal); Z98.84 Bariatric surgery status
CPT/HCPCS: 99214

== ENCOUNTER → 2024-04-13 09:30 | Outpatient (BNVA) | payer MEDICAID, SELFPAY | PROVIDERS: PCP Internal Medicine; Visit Provider Physician Assistant Surgical | DX: E66.3 Overweight (principal); Z68.27 Body mass index [BMI] 27.0-27.9, adult; Z98.84 Bariatric surgery status | CPT/HCPCS: 99212 ==

== ENCOUNTER 2024-04-30 14:56 | Outpatient (REF) | payer MEDICAID, SELFPAY ==
--- NOTE | ~2024-04-30 | MM_ITS ---
EXAMINATION: MM SCREENING DIGITAL BREAST TOMOSYNTHESIS, BILATERAL CLINICAL INFORMATION: Screening. Asymptomatic. COMPARISON: Mammography: Comparison is made with available priors TECHNIQUE: Digital breast mammography with tomosynthesis is performed in both the craniocaudal and mediolateral oblique views along with computer-aided detection (CAD). FINDINGS: There are scattered areas of fibroglandular density (ACR BI-RADS breast composition Category b). There are no significant masses, abnormal calcifications, or other abnormalities. MM/MM tomosynthesis screening BI IMPRESSION: No mammographic evidence of malignancy. ASSESSMENT: BI-RADS BI-RADS 1 - Negative RECOMMENDATION: Routine annual mammography screening. 1 year F/U This examination should not preclude the clinical evaluation of a suspicious palpable abnormality. This patient's information was entered into a reminder system with a target due date for their next mammogram. Electronically signed by: Katina Reardon DO 05/12/2024 09:28 AM KRISTINA
== END 2024-04-30 14:57 | disposition home or self-care (01) ==
LOC: HO.MAMMO 14:56
PROVIDERS: PCP Internal Medicine; Visit Provider Internal Medicine
DX: Z12.31 Encounter for screening mammogram for malignant neoplasm of breast (principal)
CPT/HCPCS: 77063; 77067

== ENCOUNTER → 2024-04-30 15:15 | Outpatient (BNV) | payer MEDICAID, SELFPAY | PROVIDERS: PCP Internal Medicine; Visit Provider Internal Medicine | DX: Z12.31 Encounter for screening mammogram for malignant neoplasm of breast (principal) | CPT/HCPCS: 77063; 77067 ==

== ENCOUNTER 2024-10-13 13:09 | Outpatient (AMB) | payer MEDICAID, SELFPAY ==
--- NOTE | 2024-10-13 13:30 | MHC.OFFVISWM ---
VS Expanded 10/13/24 13:38 BP 108/58 L Blood Pressure Location Rt brachial Blood Pressure Position Sitting Pulse 57 Pulse Source Pulse Oximeter Temp 97.3 F Temperature Source Temporal Artery Scan Pulse Oximetry 97 Oxygen Delivery Method Room Air Height 5 ft 4.5 in Weight 158 lb 9.6 oz BMI 26.8 Body Fat % 32.4 Body Fat Mass 51.4 Fat Free Mass 107.2 Visceral Fat Rating 6.0 Body Water % 48.3 Body Water Mass 76.6 Muscle Mass/Score 101.6 Basal Metabolic Rate/Score 1,454 Intake Visit Reasons: (OV) PO LSG 12/22/20 Allergies No Known Allergies Allergy (Verified 10/13/24 13:33) Medication List - Last Reconciled 10/13/24 by EJ Leon amitriptyline 10 mg PO BEDTIME bupropion HCl SR 150 mg PO DAILY cholecalciferol (vitamin D3) (Vitamin D3) 25 mcg PO DAILY fluticasone propionate 50 mcg/actuation 1 spray intranasal BID hydroxyzine HCl 25 mg PO BID PRN zmjixwrytzkj-mpy-ywwz-FA-vit K 45 mg iron- 800 mcg-120 mcg (Bariatric Multivitamins) 1 cap PO .daily in evening sumatriptan succinate 0 mg PO vitamin A palmitate 10,000 units PO DAILY HPI Comments Details: This?is a?43?yo F who is s/p LSG 12/22/2020. Presents for 3 year 9 mo post op visit. Weight at last visit on 04/13/2024 was 164.8 pounds with a BMI of 27.8, weight today is 158.6 pounds, representing a 8.2 pound weight loss with a BMI today of 26.8.? No complaints of nausea, emesis, or reflux, or constipation. Some abdominal pain with cold liquids. Has to flavor her water. Reports fatigue. Attributes her weight loss to getting her teeth done. Present meal plan includes: 2 Atkins shake and 2 bars plus small meal of protein +/- veg having mushroom coffee 3x/week not taking any shakes- tried Orgain 1 egg will also have meat and vegetables for 1 meal per day, small portion of rice takes vit D, no MVI Exercise routine includes: has more mobility now with stretching, does home workouts, rounds of intervals Pt reports problems of excess skin of abdomen and arms. Regarding abdomen, she has noticed rashes in skin folds that are painful and itchy. She has not tried any topical treatments. She has to wear a compressive garment/ faja at all times to help hold the excess skin in place, otherwise many activities of daily living are very uncomfortable. She has difficulty bending down or squatting as the excess skin gets in the way and gets pinched. Cannot wear many kinds of pants, has to wear compressive leggings at all times, can never wear jeans as the waistband digs into her skin and causes a lot of discomfort. Regarding Regarding arms, pt notices upper arm excess skin rubs against torso and causes chafing. Has to wear longer sleeves at all times to prevent friction, but in summer time this is very hot and uncomfortable. [facility] Medical History GERD (gastroesophageal reflux disease) Depression Hx of bipolar disorder Panic attack Surgical History History of sleeve gastrectomy History of endometrial ablation H/O parathyroidectomy History of esophagogastroduodenoscopy (EGD) History of tonsillectomy and adenoidectomy Hx of tubal ligation Family History Mother Heart disease Arthritis Father Liver disease Herniated disc Brother No problems noted. Brother No problems noted. Brother No problems noted. Sister Diabetes Sister Migraine Sister HIV disease Sister No problems noted. Sister No problems noted. Daughter Asthma Son No problems noted. Paternal Aunt Breast cancer Social History Household Members: Family Housing: Apartment Are you a primary career and technology education teacher to a significant other at home: No Do you presently have visiting nurse or other home services: No Alcohol intake: never Patient Tobacco Use Status: Former Tobacco user Tobacco use type: Cigarette service: No Current occupational status: unemployed Female Reproductive History Menstrual Age of Menarche: 13 Physical Exam Const General: cooperative, comfortable and no acute distress Orientation/consciousness: patient oriented x3 GI Other: soft, nontender, nondistended, incisions well healed, no hernia, no masses Grade II pannus Neuro General: patient oriented x3 Assessment & Plan Assessment & Plan (1) Overweight: Code(s): E66.3 - Overweight Category: Medical (2) S/P laparoscopic sleeve gastrectomy: Code(s): Z98.84 - Bariatric surgery status Category: Surgical Plan Will order labs for pt's complaint of fatigue. Encouraged pt to ensure at least 60g protein per day. Gave handouts on protein water options and bar options. She is interested in skin removal surgery. Clotrimazole ointment ordered for rashes of excess skin. RTC in mid December for in person appt to monitor issues of excess skin. Orders: Orders Insulin Today Z98.84 - Bariatric surgery status Hemoglobin A1c Today Z98.84 - Bariatric surgery status Comprehensive Met. Panel Today Z98.84 - Bariatric surgery status Vitamin B12 and Folate Today Z98.84 - Bariatric surgery status Zinc Today Z98.84 - Bariatric surgery status C Reactive Protein Today Z98.84 - Bariatric surgery status Vitamin B1 Today Z98.84 - Bariatric surgery status Vitamin D 25-OH Total Today Z98.84 - Bariatric surgery status Complete Blood Count Auto Diff Today Z98.84 - Bariatric surgery status Lipid Panel Today Z98.84 - Bariatric surgery status IRON PROFILE Today Z98.84 - Bariatric surgery status Vitamin A Today Z98.84 - Bariatric surgery status TSH reflex Free T4 Today Z98.84 - Bariatric surgery status Ferritin Today Z98.84 - Bariatric surgery status Medications: New clotrimazole 1% 1 appl topical BID 45 grams 3RF
[2024-10-13 13:38] VITALS: BP 108/58; PULSE 57; TEMP 36.3; O2SAT 97; BMI 26.8
--- OUTSIDE RECORDS SUMMARY | 2024-10-13 14:22 | XMS_ITS ---
Author Organization [employer] Address [address] [place] [address] Care Team Providers Care Mechanotherapist Name Role Phone Magaly Mcrae MD Primary Care Provide r CM Complex Status:Enrolled (Active) Start date:08/28/2024 Enrollment date:09/21/2024 Enrollment reason:ADT Feed Overview ADT- Pt admitted to [facility] on 08/27/24. Case Team Name Relationship Phone Rafael Kimball RN Registered Nurse(Responsible St aff) [phone] Continued Care and Services Coordination
--- OUTSIDE RECORDS SUMMARY | 2024-10-13 14:22 | XMS_ITS | Clinical Summary ---
Author Organization [address] [facility] Address [address] [place] [address] Phone Care Team Providers Care Local Operator Name Role Phone Thu Tam MD Primary Care Provider + [phone] Medications DICLOFENAC SODIUM TOP Diclofenac Sodium 1 % Gel-Sig - Route: Apply 4 g topically 4 times daily as needed (Bilateral knee pain.) for up to 30 days. Apply 4 g to each affected area up to 4 times daily; maximum dose per joint: 16 g/day; maximum total body dose (all combined joints): 32 g/day Active Encounters Date Type Department Care Team Description 09/10/2024 3:00 PM EDT Treatment [address] [id number] Tremluis miguel, Calli, PT Left knee pain, unspecified chronicity (Primary Dx) 08/27/2024 3:00 PM EDT Treatment [address] [id number] Trembley, Calli, PT Left knee pain, unspecified chronicity (Primary Dx) 07/30/2024 3:00 PM EST Treatment [address] [id number] Trembley, Calli, PT Left knee pain, unspecified chronicity (Primary Dx) 07/23/2024 3:00 PM EST Treatment [address] [id number] João Harding, VICKIE Left knee pain, unspecified chronicity (Primary Dx) from Last 3 Months Social History Tobacco Use Types Packs/Day Years Used Date Smoking Tobacco: Never Assessed Comments No Sex and Gender Information Value Date Recorded Sex Assigned at Not on file Legal Sex Female 11:37 PM EST Gender Identity Not on file Sexual Orientation Not on file Last Filed Vital Signs Vital Sign Reading Time Taken Comments Blood Pressure - - Pulse - - Temperature - - Respiratory Rate - - Oxygen Saturation - - Inhaled Oxygen Concentration - - Weight 78.9 kg (174 lb) 04/13/2024 2:54 PM EST Height 162.6 cm (5' 4 ) 04/13/2024 2:54 PM EST Body Mass Index 29.87 04/13/2024 2:54 PM EST Plan of Treatment Health Maintenance Due Date Last Done Comments Hepatitis B Vaccines (1 of 3 - 19+ 3-dose series) 11/29/1999 Cervical Cancer Screening: P ap Smear 2001 Social Influencers of Health Screening 05/13/2022 Breast Cancer Screening 09/28/2023 09/27/2021 DTaP,Tdap,and Td Vaccines (3 - Td or Tdap) 02/02/2024 02/01/2014, 02/26/2008 COVID-19 Vaccine (2023-2 5 season) 2024 Influenza Vaccine (Season Ended) 2025 03/26/2019, 04/03/2013, 04/11/2012 Depression Screening 03/31/2025 03/31/2024 Cholesterol Screening (Lipid Panel) 04/09/2029 04/09/2024 HIV Screening Completed 04/09/2024 Hepatitis C Screening Completed 04/09/2024 HIB Vaccines Aged Out No longer eligi ble based on patient's age to complete this topic HPV Vaccines Aged Out No longer eligi ble based on patient's age to complete this topic Hepatitis A Vaccines Aged Out No long er eligible based on patient's age to complete this topic IPV Vaccines Aged Out No longer eligi ble based on patient's age to complete this topic MMR Vaccines Aged Out No longer eligi ble based on patient's age to complete this topic Meningococcal ACWY Vaccine Aged Out N o longer eligible based on patient's age to complete this topic Meningococcal B Vaccine Aged Out No l onger eligible based on patient's age to complete this topic Pneumococcal Vaccine: Pediatrics (0 to 5 Years) and At-Risk Patients (6 to 64 Years) Aged Out No longer eligible b ased on patient's age to complete this topic RSV Immunization Patients Under 20 months Aged Out No longer eligible b ased on patient's age to complete this topic Varicella Vaccines Aged Out No longer eligible based on patient's age to complete this topic Insurance MEDICAID - [place] Care Teams Local Operator Relationship Specialty Start Date End Date Thu Tam MD [address] [place] [phone] PCP - General Internal Medicine 03/13/24
--- OUTSIDE RECORDS SUMMARY | 2024-10-13 14:22 | XMS_ITS ---
Author Organization [employer] Address [address] [place] [address] Care Team Providers Care Batch Blender Name Role Phone Magaly Mcrae MD Primary Care Provide r [facility] Status:Enrolled (Active) Start date:08/28/2024 Enrollment date:09/21/2024 Enrollment reason:ADT Feed Overview ADT- Pt admitted to [facility] on 08/27/24. Case Team Name Relationship Phone Efrain Torres (Responsible Staff) [phone] Continued Care and Services Coordination
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
--- OUTSIDE RECORDS SUMMARY | 2024-10-13 14:22 | XMS_ITS | Encounter Summary ---
Author Organization [facility] Address [address] [place] [address] Care Team Providers Care Line Maintenance Name Role Phone Magaly Mcrae MD Primary Care Provide r Encounter Details Date Type Department Care Team ([facility] st Contact Info) Description 02/13/2024 Telephone [facility] MEDICINE [address] [place], [place] [phone] Magaly Mcrae MD [address] [place], [place] [phone] Social History Tobacco Use Types Packs/Day Years Used Date Smoking Tobacco: Never Smokeless Tobacco: Never Alcohol Use Standard Drinks/Week Comments Never 0 (1 standard drink = 0.6 oz pur e alcohol) Depression Answer Date Recorded Patient Health Questionnaire-9 Score 11 11/29/2022 Housing Stability Answer Date Recorded What is your housing situation today? I have cecil denny 04/07/[address] you li ve. Do you have problems with any of the following? None of the above 04/07/2023 Food Insecurity Answer Date Recorded Within the past 12 months, y ou worried that your food would run out before you got money to buy more: Never True 04/07/2023 Within the past 12 months,th e food you bought just didn't last and you didn't have enough money to get more: Never True Transportation Answer Date Recorded In the past 12 months, has l ack of transportation kept you from medical appts, meetings, work or from getting things needed for daily living? No 04/07/2023 Utilities Answer Date Recorded In the past 12 months, has t he electric, gas, oil or water company threatened to shut off services in your home? No 04/07/2023 Depression Answer Date Recorded Patient Health Questionnaire-2 Score 2 11/29/2022 Comments No Sex and Gender Information Value Date Recorded Sex Assigned at Female 04/09/2022 10:18 AM EDT Legal Sex Female 10:18 AM EDT Gender Identity Female 04/09/2022 10:18 AM EDT Sexual Orientation Straight 04/09/2022 10 :18 AM EDT documented as of this encounter Plan of Treatment Upcoming Encounters Date Type Department Care Team (Late st Contact Info) Description 10/23/2024 1:30 PM EDT Telemedicine [facility] MEDICINE [address] [place] [address] Magaly Mcrae MD [address] [place] [address] documented as of this encounter Visit Diagnoses Not on filedocumented in this encounter Additional Health Concerns Assessment Noted Time PHQ-9 Depression Total Score: 11 023 3:07 PM EDT documented as of this encounter Care Teams Line Maintenance Relationship Specialty Start Date End Date Magaly Mcrae MD [address] [place] [id number] PCP - General Family Medicine 02/19/18 documented as of this encounter
== END 2024-10-13 14:12 | disposition home or self-care (01) ==
LOC: HO.HBS 13:10
PROVIDERS: PCP Internal Medicine; Visit Provider Physician Assistant Surgical
DX: E66.3 Overweight (principal); Z98.84 Bariatric surgery status
CPT/HCPCS: 99214

== ENCOUNTER → 2024-10-13 13:09 | Outpatient (BNVA) | payer MEDICAID, SELFPAY | PROVIDERS: PCP Internal Medicine; Visit Provider Physician Assistant Surgical | DX: E66.3 Overweight (principal); Z98.84 Bariatric surgery status; Z68.26 Body mass index [BMI] 26.0-26.9, adult | CPT/HCPCS: 99212 ==

== ENCOUNTER 2024-11-13 09:40 | Outpatient (REF) | payer MEDICAID, SELFPAY ==
[2024-11-13 09:54] LABS: MANUAL DIFF FLAG NO
--- OUTSIDE RECORDS SUMMARY | 2024-11-13 10:16 | XMS_ITS | Encounter Summary ---
Author Organization [employer] Address [address] [facility] 7t [place] [address] Care Team Providers Care Business Intelligence Developer Name Role Phone Magaly Mcrae MD Primary Care Provide r Encounter Details Date Type Department Care Team ([facility] Contact Info) Description 02/13/2024 Telephone [facility] MEDICINE [address] [place], [place] [phone] Magaly Mcrae MD [address] [place], [place] [phone] Social History Tobacco Use Types Packs/Day Years [...] Care Team (Late st Contact Info) Description 12/21/2024 11:30 AM EDT Telemedicine [facility] MEDICINE [address] [place] [id number] Magaly Mcrae MD [address] [place] [address] documented as of this encounter Visit Diagnoses Not on filedocumented in this encounter Additional Health Concerns Assessment Noted Time PHQ-9 Depression Total Score: 11 023 3:07 PM EDT documented as of this encounter Care Teams Business Intelligence Developer Relationship Specialty Start Date End Date Magaly Mcrae MD [address] [place] [id number] PCP - General Family Medicine 02/19/18 documented as of this encounter
[2024-11-13 10:38] LABS: Basophils Percent Auto 0.3 % (0-2); Eosinophils Percent Auto 0.9 % (0-4); Hematocrit 36.5 % (37.0-47.0); Hemoglobin 13.3 g/dl (12.0-16.0); Imm Gran Abs Auto 0.01 X10*3/uL (0.00-0.03); Imm Gran Pct Auto 0.3 % (0.0-0.4); Lymphocytes Absolute Auto 1.4 X10*3/uL (1.2-4.9); Lymphocytes Percent Auto 42.3 % (20-40); Mean Corpuscular HGB Conc 36.4 g/dl (31.0-35.0); Mean Corpuscular Hemoglobin 33.3 pg (27.0-33.0); Mean Corpuscular Volume 91.5 fL (80.0-98.0); Mean Platelet Volume 10.6 fL (9.4-12.3); Monocytes Absolute Auto 0.4 X10*3/uL (0.1-1.2); Monocytes Percent Auto 11.6 % (2-11); Neutrophils Absolute Auto 1.4 x10*3/uL (2.0-8.3); Neutrophils Percent Auto 44.6 % (45-73); Platelet Count 252 X10*3/uL (160-400); Red Blood Count 3.99 X10*6/uL (4.20-5.50); Red Cell Distribution Width 11.9 % (11.0-16.0); White Blood Count 3.2 X10*3/uL (4.8-10.8)
[2024-11-13 11:08] LABS: Estimated Average Glucose 100 mg/dL; Hemoglobin A1c % 5.1 % (<6.0)
[2024-11-13 11:39] LABS: Folate 8.5 ng/mL (> or = 4.0); Vitamin B12 245 pg/mL (200-900)
[2024-11-13 12:55] LABS: Anion Gap 9 (12-20); Ferritin 101 ng/mL (10-250); Vitamin D 25-OH Total 30.8 ng/mL (>30)
[2024-11-13 12:57] LABS: Alanine Aminotransferase 28 U/L (0-31); Albumin Level 4.6 g/dL (3.5-5.0); Alkaline Phosphatase 77 U/L (39-117); Aspartate Amino Transferase 24 U/L (5-31); Bilirubin Total 0.6 mg/dL (0.0-1.0); Blood Urea Nitrogen 13 mg/dL (9-16); C Reactive Protein < 0.04 mg/dL (< or = 0.50); Calcium 9.9 mg/dL (8.4-10.2); Carbon Dioxide 27 mmol/L (22-29); Chloride 110 mmol/L (96-108); Cholesterol 172 mg/dL (<200); Estimated Glomerular Filt Rate > 60; Glucose Random 80 mg/dL (60-115); HDL Cholesterol 69 mg/dL (>40); Iron 91 mcg/dL (30-160); LDL Cholesterol Calculated 94 mg/dL (<100); Percent Iron Saturation 29 % (15-50); Potassium 3.6 mmol/L (3.3-5.1); Sodium 142 mmol/L (135-145); Total Iron Binding Capacity 318 mcg/dL (228-428); Total Protein 7.2 g/dL (6.5-8.0); Triglycerides 46 mg/dL (<150); Unsaturated Iron Binding 227 ug/dL
[2024-11-13 13:41] LABS: Insulin 3 uU/mL (2-29)
[2024-11-17 12:52] LABS: Zinc 67 mcg/dL (60-130)
[2024-11-18 14:33] LABS: Vitamin B1 12 nmol/L (8-30)
[2024-11-18 15:28] LABS: Vitamin A 31 mcg/dL (38-98)
== END 2024-11-13 09:41 | disposition home or self-care (01) ==
LOC: HO.LAB 09:40
PROVIDERS: PCP Internal Medicine; Visit Provider Physician Assistant Surgical
DX: Z98.84 Bariatric surgery status (principal)
CPT/HCPCS: 36415; 80053; 80061; 82306; 82607; 82728; 82746; 83036; 83525; 83540; 84425; 84443; 84590; 84630; 85025; 86140

== ENCOUNTER 2024-12-22 13:59 | Outpatient (AMB) | payer MEDICAID, SELFPAY ==
[2024-12-22 14:35] VITALS: BP 102/59; PULSE 48; TEMP 36.8; O2SAT 100; BMI 27.3
--- NOTE | 2024-12-22 14:35 | MHC.OFFVISWM ---
VS Expanded 12/22/24 14:35 BP 102/59 L Blood Pressure Location Rt brachial Blood Pressure Position Sitting Pulse 48 L Pulse Source Palpation Temp 98.2 F Temperature Source Temporal Artery Scan Pulse Oximetry 100 Oxygen Delivery Method Room Air Height 5 ft 4.5 in Weight 161 lb 6.4 oz BMI 27.3 Body Fat % 29 Body Fat Mass 46.8 Fat Free Mass 114.6 Visceral Fat Rating 5 Body Water % 50.7 Body Water Mass 81.8 Muscle Mass/Score 109 Basal Metabolic Rate/Score 1,536 Intake Visit Reasons: (OV) PO LSG 12/22/20 Allergies No Known Allergies Allergy (Verified 10/13/24 13:33) Medication List - Last Reconciled 12/22/24 by EJ Leon amitriptyline 10 mg PO BEDTIME bupropion HCl SR 150 mg PO DAILY cholecalciferol (vitamin D3) (Vitamin D3) 25 mcg PO DAILY clotrimazole 1% 1 appl topical BID fluticasone propionate 50 mcg/actuation 1 spray intranasal BID hydroxyzine HCl 25 mg PO BID PRN gahyradybzgq-ctv-jepy-FA-vit K 45 mg iron- 800 mcg-120 mcg (Bariatric Multivitamins) 1 cap PO .daily in evening sumatriptan succinate 0 mg PO vitamin A palmitate 10,000 units PO DAILY HPI Comments Details: This?is a?43?yo F who is s/p LSG 12/22/2020. Presents for 3 year 9 mo post op visit. Weight at last visit on 04/13/2024 was 164.8 pounds with a BMI of 27.8, weight today is 158.6 pounds, representing a 8.2 pound weight loss with a BMI today of 26.8.? No complaints of nausea, emesis, or reflux, or constipation. Some abdominal pain with cold liquids. Has to flavor her water. Reports fatigue. Attributes her weight loss to getting her teeth done. Present meal plan includes: 2 Atkins shake and 2 bars plus small meal of protein +/- veg having mushroom coffee 3x/week not taking any shakes- tried Orgain 1 egg will also have meat and vegetables for 1 meal per day, small portion of rice takes vit D, no MVI pt reports she tried some bars but hard to eat due to recently having her teeth done; also has tried some protein choi but Exercise routine includes: has more mobility now with stretching, does home workouts, rounds of intervals Pt reports problems of excess skin of abdomen and arms. Regarding abdomen, she has noticed rashes in skin folds that are painful and itchy. She has tried topical clotrimazole but this has not completely resolved the problem. She has to wear a compressive garment/ faja at all times to help hold the excess skin in place, otherwise many activities of daily living are very uncomfortable. She has difficulty bending down or squatting as the excess skin gets in the way and gets pinched. Cannot wear many kinds of pants, has to wear compressive leggings at all times, can never wear jeans as the waistband digs into her skin and causes a lot of discomfort. Regarding arms, pt notices upper arm excess skin rubs against torso and causes chafing. Has to wear longer sleeves at all times to prevent friction, but in summer time this is very hot and uncomfortable. [facility] Medical History GERD (gastroesophageal reflux disease) Depression Hx of bipolar disorder Panic attack Surgical History History of sleeve gastrectomy History of endometrial ablation H/O parathyroidectomy History of esophagogastroduodenoscopy (EGD) History of tonsillectomy and adenoidectomy Hx of tubal ligation Family History Mother Heart disease Arthritis Father Liver disease Herniated disc Brother No problems noted. Brother No problems noted. Brother No problems noted. Sister Diabetes Sister Migraine Sister HIV disease Sister No problems noted. Sister No problems noted. Daughter Asthma Son No problems noted. Paternal Aunt Breast cancer Social History Household Members: Family Housing: Apartment Are you a primary healthcare representative to a significant other at home: No Do you presently have visiting nurse or other home services: No Alcohol intake: never Patient Tobacco Use Status: Former Tobacco user Tobacco use type: Cigarette service: No Current occupational status: unemployed Female Reproductive History Menstrual Age of Menarche: 13 Physical Exam Vital Signs: Last Vital Signs Temp 98.2 F 12/22/24 14:35 Pulse 48 L 12/22/24 14:35 BP 102/59 L 12/22/24 14:35 Pulse Ox 100 12/22/24 14:35 Oxygen Delivery Method Room Air 12/22/24 14:35 BMI result Body Mass Index 27.3 Const General: cooperative, comfortable and no acute distress Orientation/consciousness: patient oriented x3 GI Other: soft, nontender, nondistended, incisions well healed, no hernia, no masses Grade II pannus Skin Other: excess skin of upper arms with maximum length of 7cm from triceps Neuro General: patient oriented x3 Assessment & Plan Assessment & Plan (1) S/P laparoscopic sleeve gastrectomy: Code(s): Z98.84 - Bariatric surgery status Category: Surgical (2) Overweight: Code(s): E66.3 - Overweight Category: Medical (3) Excess skin: Code(s): L98.7 - Excessive and redundant skin and subcutaneous tissue Category: Medical Plan Pt with goal weigh 159lbs prior to skin removal surgery. She will text me once she is able to achieve. She will increase exercise and improve her protein intake- we discussed various ways to do this. She is experiencing issues of excess skin of abdomen resulting in frequent painful, itchy, malodorous rashes which are unrelieved by topical antifungals. In addition she is experiencing limitations/discomfort in activities of daily living, including squatting, bending. She requires the use of special clothing at all times to try to prevent discomfort but her issues have not been completely relieved by conservative measures. She would benefit from definitive treatment of panniculectomy. In addition, she is experiencing issues of excess skin of arms, resulting in painful chafing of skin and limitations of mobility due to pain/discomfort during movement of arms. She would benefit from brachioplasty. Photos taken today.
--- OUTSIDE RECORDS SUMMARY | 2024-12-22 15:17 | XMS_ITS | Clinical Summary ---
Author Organization 175 [facility] Address [address] [place] [address] Phone Care Team Providers Care Dental Appliance Fixer Name Role Phone Thu Tam MD Primary Care Provider + [phone] Medications DICLOFENAC SODIUM TOP Diclofenac Sodium 1 % Gel-Sig - Route: Apply 4 g topically 4 times daily as needed (Bilateral knee pain.) for up to 30 days. Apply 4 g to each affected area up to 4 times daily; maximum dose per joint: 16 g/day; maximum total body dose (all combined joints): 32 g/day Active Social History Tobacco Use Types Packs/Day Years [...] 04/13/2024 2:54 PM EST Plan of Treatment Upcoming Encounters Date Type Department Care Team (Late st Contact Info) Description 01/14/2025 10:30 AM EDT Office Visit Orthopedic Surgery [facility] 160 175 [facility] 160 [place] [address] Niki Ramsey MD [address] [address] Health Maintenance Due Date Last Done Comments Hepatitis B Vaccines (1 of 3 - 19+ 3-dose series) 11/29/1999 Cervical Cancer Screening: P ap Smear 2001 Social Influencers of Health Screening 05/13/2022 Breast Cancer Screening 09/28/2023 09/27/2021 DTaP,Tdap,and Td Vaccines (3 - Td or Tdap) 02/02/2024 02/01/2014, 02/26/2008 COVID-19 Vaccine ( - 2023-2 5 season) 2024 Influenza Vaccine (#1) 2025 9, 04/03/2013, 04/11/2012 Depression Screening 03/31/2025 03/31/2024 Cholesterol [...] 5 Years) and At-Risk Patients (6 to 49 Years) Aged Out No longer eligible b ased on patient's age to complete this topic RSV Immunization Patients Under 20 months Aged Out No longer eligible b ased on patient's age to complete this topic Varicella Vaccines Aged Out No longer eligible based on patient's age to complete this topic Insurance MEDICAID - [place] Care Teams Dental Appliance Fixer Relationship Specialty Start Date End Date Thu Tam MD [address] [place] [phone] PCP - General Internal Medicine 03/13/24
== END 2024-12-22 15:15 | disposition home or self-care (01) ==
LOC: HO.HBS 13:59
PROVIDERS: PCP Internal Medicine; Visit Provider Physician Assistant Surgical
DX: E66.3 Overweight (principal); Z68.27 Body mass index [BMI] 27.0-27.9, adult; Z90.3 Acquired absence of stomach [part of]; Z98.84 Bariatric surgery status; L98.7 Excessive and redundant skin and subcutaneous tissue
CPT/HCPCS: 99213

== ENCOUNTER → 2024-12-22 13:59 | Outpatient (BNVA) | payer MEDICAID, SELFPAY | PROVIDERS: PCP Internal Medicine; Visit Provider Physician Assistant Surgical | DX: Z98.84 Bariatric surgery status (principal); E66.3 Overweight; L98.7 Excessive and redundant skin and subcutaneous tissue | CPT/HCPCS: 99212 ==

== ENCOUNTER 2025-01-05 16:39 | Outpatient (REF) | payer MEDICAID, SELFPAY ==
--- OUTSIDE RECORDS SUMMARY | 2025-01-05 16:49 | XMS_ITS | Encounter Summary ---
Author Organization [employer] Address [address] [facility] 7 [place] [address] Care Team Providers Care It Application Development Manager Name Role Phone Magaly Mcrae MD Primary Care Provide r Reason for Visit * Reason Onset Date Comments Nurse Triage 01/04/2025 Encounter Details Date Type Department Care Team ([facility] st Contact Info) Description 01/04/2025 Telephone [facility] MEDICINE [address] [place], [place] [phone] Magaly Mcrae MD [address] [place], [place] [phone] Nurse Triage Social History Tobacco Use Types Packs/Day Years Used Date Smoking Tobacco: Never Passive Smoke Exposure: Never Smokeless Tobacco: Never Alcohol Use Standard [...] AM EDT documented as of this encounter Miscellaneous Notes * Telephone Encounter - Dulce Chao RN - 01/04/2025 3:52 PM EDT No concrete boom operator needed as this entry writer speaks Yi. Call returned to Aurora Ferrara to triage below at [phone]. Reports having onset of abnormal vaginal bleeding. Per pt has been without menses since age of 38. Per pt having intermittent abdominal pain , cramping. Denies any urinary sx. NO pelvic/flank pain. NO heavy bleeding per patient. Per pt had last PAP approx 3-4 years ago. Per ptdone by PCP. Denies any abnormal bruising , gum bleeding or nose bleeds. Pt advised of disposition,agrees to sick on site with [facility].Reviewed home care advise, ER precautions and reasons to call back. Protocol Used: Vaginal Bleeding - Postmenopausal (Adult) Protocol-Based Disposition: See in Office or Video Visit within 2 Weeks Future Appointments Date Time Provider Department Center 01/05/2025 1:45 PM Diya York CNM MEDICINE [facility] Insurance verified as active per [facility]. Positive Triage Question: * Postmenopausal vaginal bleeding * All higher-acuity triage questions were negative Care Advice Discussed: * Reasons To Call Back - Severe abdomen pain or dizziness occurs - Bleeding increases - You become worse * Telephone Encounter - Scooter Sen - 01/04/2025 3:42 PM EDT Symptom: Vaginal Bleeding - Not Outcome: Talk to a nurse or provider within 15 minutes Reason: Heavy bleeding The caller accepted this outcome. Contact pt at [phone] ([email or web address]) documented in this encounter Plan of Treatment Not on file documented as of this encounter Visit Diagnoses Not on filedocumented in this encounter Additional Health Concerns Assessment Noted Time PHQ-9 Depression Total Score: 15 025 11:32 AM EDT documented as of this encounter Care Teams It Application Development Manager Relationship Specialty Start Date End Date Magaly Mcrae MD [address] [place] [address] PCP - General Family Medicine 02/19/18 documented as of this encounter
--- OUTSIDE RECORDS SUMMARY | 2025-01-05 16:49 | XMS_ITS | Clinical Summary ---
Author Organization 175 [facility] Address 175 [place] [address] Phone Care Team Providers Care Submarine Diver Name Role Phone Thu Tam MD Primary Care Provider + [phone] Medications DICLOFENAC SODIUM TOP Diclofenac Sodium 1 [...] 10:30 AM EDT Office Visit Orthopedic Surgery [facility] 160 175 [facility] 160 [place] [address] Niki Ramsey MD [address] [address] Health Maintenance Due Date Last Done Comments Hepatitis B Vaccines (1 of 3 - 19+ 3-dose series) 11/29/1999 Cervical Cancer Screening: P ap Smear 2001 Social Influencers of Health Screening 05/13/2022 Breast Cancer Screening 09/28/2023 09/27/2021 DTaP,Tdap,and Td Vaccines (3 - Td or Tdap) 02/02/2024 02/01/2014, 02/26/2008 COVID-19 Vaccine ( - 2023-2 5 season) 2024 Depression Screening 06/10/2024 Influenza Vaccine (#1) 2025 9, 04/03/2013, 04/11/2012 Cholesterol Screening (Lipid Panel) 04/09/2029 04/09/2024 HIV [...] topic Insurance MEDICAID - [place] Care Teams Submarine Diver Relationship Specialty Start Date End Date Thu Tam MD [address] [place] [phone] PCP - General Internal Medicine 03/13/24
[2025-01-05 17:54] LABS: Bacterial Vaginosis PCR POSITIVE (Negative); Candida Group PCR NOT DETECTED (Not Detect); Candida glab krusei PCR NOT DETECTED (Not Detect); Trichomonas vaginalis PCR NOT DETECTED (Not Detect)
[2025-01-20 21:38] LABS: C. trachomatis RNA TMA NOT DETECTED (NOT DETECTED); N. gonorrhoeae RNA TMA NOT DETECTED (NOT DETECTED); Trichomonas (NAAT) NOT DETECTED (NOT DETECTED)
== END 2025-01-05 16:40 | disposition home or self-care (01) ==
LOC: HO.LNP 16:39
PROVIDERS: Visit Provider Advanced Practice Midwife
DX: Z12.4 Encounter for screening for malignant neoplasm of cervix (principal); N89.8 Other specified noninflammatory disorders of vagina
CPT/HCPCS: 81515; 87491; 87591; 87626; 87661; 88175

== ENCOUNTER 2025-01-15 15:06 | Outpatient (REF) | payer MEDICAID, SELFPAY ==
--- OUTSIDE RECORDS SUMMARY | 2025-01-14 10:30 | XMS_ITS | Encounter Summary ---
Author Organization [facility] Address [address] [place] [address] Care Team Providers Care Library Customer Service Clerk Name Role Phone Thu Tam MD Primary Care Provider + [phone] Reason for Visit * Reason Comments Follow-up Left knee Encounter Details Date Type Department Care Team (Late st Contact Info) Description 01/14/2025 10:30 AM EDT Office Visit Orthopedic Surgery - [place] [address] [facility] 160 [place] [address] Niki Ramsey MD [address] [facility] 160 [place] [address] Derangement of unspecified medial meniscus due to old tear or injury, left knee (Primary Dx) Social History Tobacco Use Types Packs/Day Years Used Date Smoking Tobacco: Never Assessed Comments No Sex and Gender Information Value Date Recorded Sex Assigned at Not on file Legal Sex Female 11:37 PM EST Gender Identity Not on file Sexual Orientation Not on file documented as of this encounter Last Filed Vital Signs Vital Sign Reading Time Taken Comments Blood Pressure - - Pulse - - Temperature - - Respiratory Rate - - Oxygen Saturation - - Inhaled Oxygen Concentration - - Weight 73 kg (161 lb) 01/14/2025 10:19 AM EDT Height 162.6 cm (5' 4.02 ) 01/14/2025 10:19 AM E DT Body Mass Index 27.62 01/14/2025 10:19 AM EDT documented in this encounter Progress Notes * Niki Ramsey MD - 01/14/2025 10:30 AM EDT Aurora Ferrara CC: Chief Complaint Patient presents with Follow-up Left knee Patient declines use of video bung sewer. HPI: Aurora is here to follow-up with her left knee pain and MRI from almost 1 year ago. She was last seen April 2024 for left posterior knee pain. Workup included musculoskeletal ultrasound which showed no evidence of a Gardner's cyst and an x-ray without significant joint space narrowing or other bony abnormality. Her pain did not improve with conservative treatment including physical therapy. An MRI was ordered. She is here today to follow-up with that MRI. I reviewed the images with her which did show a horizontal tear through the posterior horn of the medial meniscus. There is very mild cartilage thinning in the lateral and patellofemoral compartments but no focal osteochondral lesion. She states she continues to have pain in the knee mostly in the back. She denies any locking, catching or buckling. She does use a Tylenol occasionally if the knee is painful. ROS: Constitutional: no fever Eyes: negative for redness, drainage ENT: negative for ear pain or discharge Cardiovascular: negative for pain Respiratory: no cough GI: no vomiting or diarrhea, stomach ache, change in BMs : normal voiding Musculoskeletal: see HPI Skin: no rash Neurologic: negative for headache, dizziness The remainder of the systems is noncontributory PMH: There are no active problems to display for this patient. PSH: No past surgical history on file. Medications: Current Outpatient Medications: acetaminophen (TYLENOL) 325 mg tablet, Take by mouth., Disp: , Rfl: buPROPion SR (WELLBUTRIN SR) 200 mg 12 hr tablet, TOME 1 TABLETA POR V A ORAL TODOS LOS D EN TRINY DHILLON, Disp: , Rfl: fluticasone propionate (FLONASE) 50 mcg/actuation nasal spray, Administer 1-2 sprays into each nostril daily., Disp: , Rfl: hydrOXYzine pamoate (VISTARIL) 25 mg capsule, TOME 1 C PSULA POR V A ORAL TODOS LOS D , Disp: , Rfl: SUMAtriptan (IMITREX) 25 mg tablet, Take 1 tablet (25 mg total) by mouth 1 (one) time if needed., Disp: , Rfl: traZODone (DESYREL) 50 mg tablet, TAKE 0.5-1 TABLET BY MOUTH EVERY NIGHT AT BEDTIME NEEDED FOR SLEEP, Disp: , Rfl: vitamin A palmitate 3,000 mcg (10,000 unit) capsule, TOME 1 C PSULA POR V A ORAL TODOS LOS D , Disp: , Rfl: Vitamin D3 25 mcg (1,000 unit) capsule, TOME 1 C PSULA POR V A ORAL TODOS LOS D , Disp: , Rfl: DICLOFENAC SODIUM TOP, Diclofenac Sodium 1 % Gel-Sig - Route: Apply 4 g topically 4 times daily as needed (Bilateral knee pain.) for up to 30 days. Apply 4 g to each affected area up to 4 times daily; maximum dose per joint: 16 g/day; maximum total body dose (all combined joints): 32 g/day, Disp: ,Rfl: Allergies: No Known Allergies SHx: Social History Tobacco Use Smoking status: Not on file Smokeless tobacco: Not on file Substance Use Topics Alcohol use: Not on file FHx: No family history on file. Physical Exam: Visit Vitals Ht 1.626 m (64.02 ) Wt 73 kg (161 lb) BMI 27.62 kg/m?? OB Status Having periods BSA 1.78 m?? Gen: No acute distress. Pleasant Eyes: PERRL, EOMI ENT: Mucous membranes moist Resp:Normal respiratory effort Lymphatics: No noted lymphadenopathy MSK: Knee Exam: Left Inspection: mild genu valgus valgus noted. No effusion. Normal gait. Palpations: No joint line tenderness to palpation. No swelling redness or warmth in the popliteal fossa. Patella facets - No tenderness to palpation. MCL: nl. LCL: nl. Distal ITB: nl. Patella tendon: nl. Pes Anserine: tendons: nl,bursa: nl. Strength: 5/5. ROM-full. Varus stress at 20 degree and full extension - nl. Valgus stress at at 20 degree and full extension - nl. Special testing: Ant. Drawer - nl. Post. Drawer - nl. Lachmen's - nl. . Post. Sag - nl. Quad. Activation - nl. Dial test - nl. Marito's - nl. Patella compression - neg. Patella apprehension - neg. Neurovascular: Sensation to light touch: Intact and symmetric. DTR: Intact and symmetric. Peripheral pulses: Intact and symmetric. Cap. Refill: brisk. Radiographic/Imaging: MRI Lf knee IMPRESSION: Horizontal tear of the posterior horn the medial meniscus. Mild cartilage loss in the lateral and patellofemoral compartments. All images are stored and permanently retrievable Assessment: 1) Left knee pain with medial meniscus tear through the posterior horn. She continues to have pain despite conservative treatment including HEP and Tylenol. As she has little degenerative change in the knee discussed option of discussing possible arthroscopic meniscus repair with orthopedic surgery. Plan: 1) continue home strengthening exercises. 2) discussed activity modification including avoiding activities with deep knee flexion or twistingmotions. 3) May use Tylenol or NSAIDs as needed for pain 4) we will discuss referral to Dr. Dar Taylor to discuss possible arthroscopy. All of the patient's questions were answered. The patient understand and feels comfortable with thecurrent care plan. Thanks for allowing me to be a part of the patient's care team! Please feel free to contact me for any reason. Sincerely, Niki Ramsey MD. ON 01/14/2025 at 11:12 AM EDT documented in this encounter Plan of Treatment Upcoming Encounters Date Type Department Care Team (Late st Contact Info) Description 01/29/2025 10:30 AM EDT Consult Orthopedic Surgery - [facility] [address] [phone] Dar Taylor MD 175 [facility] 160 [place] [address] documented as of this encounter Visit Diagnoses Diagnosis Derangement of unspecified medial meniscus due to old tear or injury, left knee- Primary documented in this encounter Historical Medications * This list may reflect changes made after this encounter. SUMAtriptan (IMITREX) 25 mg tablet Take 1 tablet (25 mg total) by mouth 1 (one) time if needed. 11/20/2024 acetaminophen (TYLENOL) 325 mg tablet Take by mouth. 08/13/2018 Vitamin D3 25 mcg (1,000 unit) capsule TOME 1 C PSULA POR V A ORAL TODOS LOS D 03/16/2024 fluticasone propionate (FLONASE) 50 mcg/actuation nasal spray Administer 1-2 sprays into each nostril daily. 10/23/2024 traZODone (DESYREL) 50 mg tablet TAKE 0.5-1 TABLET BY MOUTH EVERY NIGHT AT BEDTIME NEEDED FOR SLEEP 10/14/2024 vitamin A palmitate 3,000 mcg (10,000 unit) capsule TOME 1 C PSULA POR V A ORAL TODOS LOS D 07/09/2024 hydrOXYzine pamoate (VISTARIL) 25 mg capsule TOME 1 C PSULA POR V A ORAL TODOS LOS D 10/16/2024 buPROPion SR (WELLBUTRIN SR) 200 mg 12 hr tablet TOME 1 TABLETA POR V A ORAL TODOS LOS D NAT DHILLON 01/04/2025 added in this encounter Care Teams Library Customer Service Clerk Relationship Specialty Start Date End Date Thu Tam MD [address] [place] [phone] PCP - General Internal Medicine 03/13/24 documented as of this encounter
--- NOTE | ~2025-01-15 | US_ITS ---
CLINICAL HISTORY: AUB US pelvis transabdominal and transvaginal with Doppler Comparison: None provided Findings: Transabdominal scanning performed for overall anatomy. Transvaginal scanning performed for additional detail. Anteverted uterus is 9.3 cm length. 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 9 mm right mid/superior uterine fibroid anteriorly. 11 mm left anterior uterine fibroid. Endometrium 6 mm thickness. Right ovary 2.5 x 1.7 x 1.4 cm. Left ovary 3.6 x 2.1 x 2.5 cm. Normal color Doppler with arterial/venous spectral tracing of both ovaries. No free fluid. IMPRESSION: 1. No acute process. This document has been electronically signed by: Kristi Summers MD on 01/15/2025 20:55:35
--- OUTSIDE RECORDS SUMMARY | 2025-01-15 15:08 | XMS_ITS | Encounter Summary ---
Author Organization [employer] Address [address] [facility] [address] [place] [address] Care Team Providers Care Senior Software Engineer Analytics Name Role Phone Magaly Mcrae MD Primary Care Provide r Encounter Details Date Type Department Care Team ([facility] st Contact Info) Description 02/13/2024 Telephone [facility] MEDICINE [address] [place], [place] [phone] Magaly Mcrae MD [address] [place], [place] [phone] Social History Tobacco Use Types Packs/Day Years [...] as of this encounter Plan of Treatment Not on file documented as of this encounter Visit Diagnoses Not on filedocumented in this encounter Additional Health Concerns Assessment Noted Time PHQ-9 Depression Total Score: 11 023 3:07 PM EDT documented as of this encounter Care Teams Senior Software Engineer Analytics Relationship Specialty Start Date End Date Magaly Mcrae MD [address] [place] [address] PCP - General Family Medicine 02/19/18 documented as of this encounter
== END 2025-01-15 15:07 | disposition home or self-care (01) ==
LOC: HO.US 15:06
PROVIDERS: Visit Provider Advanced Practice Midwife
DX: N93.9 Abnormal uterine and vaginal bleeding, unspecified (principal)
CPT/HCPCS: 76830; 76856

== ENCOUNTER → 2025-01-15 15:10 | Outpatient (BNV) | payer MEDICAID, SELFPAY | PROVIDERS: Visit Provider Radiology Diagnostic Radiology | DX: D25.1 Intramural leiomyoma of uterus (principal) | CPT/HCPCS: 76830; 76856 ==

== ENCOUNTER 2025-01-18 16:38 | Outpatient (REF) | payer MEDICAID, SELFPAY ==
--- OUTSIDE RECORDS SUMMARY | 2025-01-18 16:41 | XMS_ITS | Encounter Summary ---
Author Organization [employer] Address [address] [place] [address] Care Team Providers Care House Admin Name Role Phone Magaly Mcrae MD Primary Care Provide r Encounter Details Date Type Department Care Team ([facility] st Contact Info) Description 02/13/[address] [facility] MEDICINE [address] [place], [place] [phone] Magaly Mcrae MD [address] [place], [place] [phone] Social History Tobacco Use Types Packs/Day Years [...] documented as of this encounter Care Teams House Admin Relationship Specialty Start Date End Date Magaly Mcrae MD [address] [place] [address] PCP - General Family Medicine 02/19/18 documented as of this encounter
[2025-01-18 16:49] LABS: Appearance Urine Clear; Glucose Urine UA Negative (Negative); PH 7.0 (5.0-9.0); Specific Gravity - Urine 1.025 (1.005-1.025); UMIC TRIGGER UACC YES
[2025-01-18 17:01] LABS: UACC Culture Trigger YES
[2025-01-19 09:30] LABS: Bacterial Vaginosis PCR POSITIVE (Negative); Candida Group PCR DETECTED (Not Detect); Candida glab krusei PCR NOT DETECTED (Not Detect); Trichomonas vaginalis PCR NOT DETECTED (Not Detect)
== END 2025-01-18 16:39 | disposition home or self-care (01) ==
LOC: HO.HHCLNP 16:38
PROVIDERS: Internal Medicine Geriatric Medicine
DX: N89.8 Other specified noninflammatory disorders of vagina (principal); B37.9 Candidiasis, unspecified
CPT/HCPCS: 81001; 81515; 87086

== ENCOUNTER 2025-01-22 10:37 | Outpatient (REF) | payer MEDICAID, SELFPAY ==
--- NOTE | ~2025-01-22 | MM_ITS ---
EXAMINATIONS: 1. MM DIAGNOSTIC DIGITAL BREAST TOMOSYNTHESIS, BILATERAL 2. Targeted ultrasound of the right breast CLINICAL INFORMATION: Right breast lump in the upper outer quadrant. COMPARISON: Comparison made to multiple prior, most recent , and most remote . TECHNIQUE: Digital breast tomosynthesis is performed in both the craniocaudal and mediolateral oblique views along with computer-aided detection (CAD). Synthesized 2D images are generated from the tomosynthesis. FINDINGS: BREAST COMPOSITION: There are scattered areas of fibroglandular density (ACR BI-RADS breast composition Category b). RIGHT BREAST: No significant masses, suspicious calcifications or other abnormalities are seen. In particular, no suspicious findings adjacent to the skin BB marker placed in the upper outer quadrant. Targeted ultrasound of the right breast was performed at the location of the palpable concern as indicated by the patient. The survey centered at approximately 9 to 10 o'clock position 6 to 12 cm from the nipple did not reveal suspicious sonographic findings. LEFT BREAST: No significant masses, suspicious calcifications or other abnormalities are seen. MM/MM tomosynthesis diagnostic BI IMPRESSION: RIGHT BREAST: Negative, no evidence of malignancy. In particular, no sonographic or mammographic findings to account for the patient's palpable concern. Clinical follow-up is recommended. Otherwise, normal interval follow-up mammogram is recommended in 12 months. LEFT BREAST: , no mammographic evidence of malignancy. Normal interval follow-up is recommended in 12 months. ASSESSMENT: BI-RADS 1 - Negative RECOMMENDATION: 1. Patient should be managed based on the clinical impression. 2. Otherwise, routine annual screening mammography. Results were provided to the patient at time of visit by the technologist. This patient's information was entered into a reminder system with a target due date for their next mammogram. Electronically signed by: Juan Carlos Alex MD 01/22/2025 11:35 AM EDT
--- OUTSIDE RECORDS SUMMARY | 2025-01-22 10:43 | XMS_ITS | Encounter Summary ---
Author Organization [employer] Address [address] [facility] [address] [place] [address] Care Team Providers Care Website/Blog Editor Name Role Phone Magaly Mcrae MD Primary Care Provide r Encounter Details Date Type Department Care Team ([facility] st Contact Info) Description 02/13/[address] [facility] MEDICINE [address] [place], [place] [phone] Magaly Mcrae MD 230 [place], [place] [phone] Social History Tobacco Use Types Packs/Day Years [...] documented as of this encounter Care Teams Website/Blog Editor Relationship Specialty Start Date End Date Magaly Mcrae MD 230 [place] [address] PCP - General Family Medicine 02/19/18 documented as of this encounter
--- OUTSIDE RECORDS SUMMARY | 2025-01-22 10:43 | XMS_ITS | Clinical Summary ---
Author Organization [address] [facility] Address [address] [place] [address] Phone Care Team Providers Care Neurology Professor Name Role Phone Thu Tam MD Primary Care Provider + [phone] Allergies No known active allergies Medications DICLOFENAC SODIUM TOP Diclofenac Sodium 1 % Gel-Sig - Route: Apply 4 g topically 4 times daily as needed (Bilateral knee pain.) for up to 30 days. Apply 4 g to each affected area up to 4 times daily; maximum dose per joint: 16 g/day; maximum total body dose (all combined joints): 32 g/day Active buPROPion SR (WELLBUTRIN SR) 200 mg 12 hr tablet TOME 1 TABLETA POR V A ORAL TODOS LOS D EN TRINY DHILLON 5 Active hydrOXYzine pamoate (VISTARIL) 25 mg capsule TOME 1 C PSULA POR V A ORAL TODOS LOS D 5 Active vitamin A palmitate 3,000 mcg (10,000 unit) capsule TOME 1 C PSULA POR V A ORAL TODOS LOS D 5 Active traZODone (DESYREL) 50 mg tablet TAKE 0.5-1 TABLET BY MOUTH EVERY NIGHT AT BEDTIME NEEDED FOR SLEEP 5 Active fluticasone propionate (FLONASE) 50 mcg/actuation nasal spray Administer 1-2 sprays into each nostril daily. 5 10/24/19 26 Active Vitamin D3 25 mcg (1,000 unit) capsule TOME 1 C PSULA POR V A ORAL TODOS LOS D 4 Active acetaminophen (TYLENOL) 325 mg tablet Take by mouth. 9 Active SUMAtriptan (IMITREX) 25 mg tablet Take 1 tablet (25 mg total) by mouth 1 (one) time if needed. 5 Active Encounters Date Type Department Care Team Description 01/14/2025 10:30 AM EDT Office Visit Orthopedic Surgery [facility] [address] [facility] [address] [place] [address] Niki Ramsey MD Derangement of unspecified medial meniscus due to old tear or injury, left knee (Primary Dx) from Last 3 Months Social [...] Mass Index 27.62 01/14/2025 10:19 AM EDT Plan of Treatment Upcoming Encounters Date Type Department Care Team (Late st Contact Info) Description 01/29/2025 10:30 AM EDT Consult Orthopedic Surgery [facility] 160 175 [facility] 160 [place] [address] Dar Taylor MD [address] [address] Health Maintenance Due Date Last Done Comments Hepatitis B Vaccines (1 of 3 - 19+ 3-dose series) 11/29/1999 Cervical Cancer Screening: P ap Smear 2001 Social Influ[employer]ers of Health Screening 05/13/2022 Breast Cancer Screening 09/28/2023 09/27/2021 DTaP,Tdap,and Td Vaccines (3 - Td or Tdap) 02/02/2024 02/01/2014, 02/26/2008 COVID-19 Vaccine (1 2023-2 5 season) 2024 Depression Screening 06/10/2024 Influenza Vaccine (#1) 2025 9, 04/03/2013, 04/11/2012 Cholesterol Screening (Lipid Panel) 11/13/2029 11/13/2024, 04/09/2024 HIV Screening Completed 04/09/2024 Hepatitis C [...] topic Insurance MEDICAID - [place] Care Teams Neurology Professor Relationship Specialty Start Date End Date Thu Tam MD [address] [place] [phone] PCP - General Internal Medicine 03/13/24
== END 2025-01-22 10:38 | disposition home or self-care (01) ==
LOC: HO.MAMMO 10:37
PROVIDERS: PCP Advanced Practice Midwife; Visit Provider Advanced Practice Midwife
DX: N63.11 Unspecified lump in the right breast, upper outer quadrant (principal)
CPT/HCPCS: 76642; 77062; 77066

== ENCOUNTER → 2025-01-22 11:00 | Outpatient (BNV) | payer MEDICAID, SELFPAY | PROVIDERS: PCP Advanced Practice Midwife; Visit Provider Radiology Body Imaging | DX: N63.11 Unspecified lump in the right breast, upper outer quadrant (principal) | CPT/HCPCS: 76642; 77062; 77066 ==

== ENCOUNTER 2025-03-24 08:18 | Outpatient (AMB) | payer MEDICAID, SELFPAY ==
--- OUTSIDE RECORDS SUMMARY | 2025-03-24 08:36 | XMS_ITS | Encounter Summary ---
Author Organization [employer] Address [address] [place] [address] Care Team Providers Care Enterostomal Nurse Name Role Phone Magaly Mcrae MD Primary Care Provide r Encounter Details Date Type Department Care Team ([facility] st Contact Info) Description 02/13/2024 Telephone [facility] [address] [place], [place] [phone] Magaly Mcrae MD [address] [place], [place] [phone] Social History Tobacco Use Types Packs/Day Years [...] Description 04/13/2025 3:15 PM EST Office Visit [facility] [address] [place] [phone] Magaly Mcrae MD [address] [place] [phone] documented as of this encounter Visit Diagnoses Not on filedocumented in this encounter Additional Health Concerns Assessment Noted Time PHQ-9 Depression Total Score: 11 023 3:07 PM EDT documented as of this encounter Care Teams Enterostomal Nurse Relationship Specialty Start Date End Date Magaly Mcrae MD [address] [place] [phone] PCP - General Family Medicine 02/19/18 documented as of this encounter
--- OUTSIDE RECORDS SUMMARY | 2025-03-24 08:36 | XMS_ITS | Clinical Summary ---
Author Organization [employer] Address [address] [facility] [address] [place] [address] Care Team Providers Care Senior Game Advisor Name Role Phone Magaly Mcrae MD Primary [...] Plan (02/07/2024 1:00 PM EDT): Refer to Infectious Waste Technician. Chronic pain of left knee 10/24/2022 Assessment [...] seek help PLAN: 1. Follow up with [facility]: Not recommended for follow-up 2. Patient goal is to obtain her meds and become stable. 3. Behavioral Recommendations a. Ind. Therapy b. Med. Management c. Coping skills provided. Assessment & Plan (10/25/2022 4:25 PM EDT): Counseling done BN referral I will start her again on Wellbutrin 150mg daily Hypercalcemia 04/10/2012 Encounters Date Type Department Care Team Description 02/15/2025 Patient Outreach [facility] [address] [place] [phone] Magaly Mcrae MD Care Coordination ([facility] Nguyễn Sandovalma f/u, program graduation) 01/28/2025 Patient Outreach [address] [address] Magaly Mcrae MD Care Management (C3- F/U call) 01/27/2025 Patient Outreach [address] [address] Magaly Mcrae MD Care Coordination ([facility]/Nguyễn Mcclainma f/u call) 01/25/2025 Orders Only [address] [address] Stan Marks CNM Mass of upper outer quadrant of right breast (Primary Dx) 01/20/2025 Orders Only [address] [address] Rebekah Lloyd CNP Bacterial vaginosis (Primary Dx) 01/20/2025 Results Follow-Up [address] [address] Rebekah Lloyd CNP Urinalysis, Complete, with Reflex to Culture, Bacterial Vaginosis Panel 01/18/2025 3:20 PM EDT Office Visit [facility] [address] [place] [phone] NameValente MD Yeast infection (Primary Dx); Vaginal odor; Urinary tract infection without hematuria, site unspecified 01/18/2025 Orders Only [address] [address] NameValente MD 01/18/2025 Travel 01/06/2025 Results Follow-Up [address] [address] Stan Marks CNM POCT , urine manually resulted, Bacterial Vaginosis Panel, US Pelvis Transvaginal, Additional followed-up results: 3 01/06/2025 Orders Only [address] [address] Stan Marsk CNM Abnormal uterine bleeding (AUB) (Primary Dx) 01/05/2025 1:45 PM EDT Office Visit [address] [address] Stan Marks CNM Mass of upper outer quadrant of right breast (Primary Dx); Abnormal uterine bleeding (AUB); Routine cervical smear; Screening examination for venereal disease; Vaginal odor 01/05/2025 Orders Only [address] [address] Stan Marks CNM 01/05/2025 Travel 01/04/[address] [address] Magaly Mcrae MD Nurse Triage 12/25/2024 Patient Outreach [address] [address] Magaly Mcrae MD Care Coordination ([facility]/W Efrain [facility] f/u call ) from Last 3 Months Immunizations Immunization Administration [...] Description 04/13/2025 3:15 PM EST Office Visit [facility] [address] [place], [place] [phone] Magaly Mcrae MD [address] [place] [address] Health Maintenance Due Date Last Done Comments HPV Vaccines (1 - 3-dose series) 11/29/1995 Hepatitis B Vaccines (1 of 3 - 19+ 3-dose series) 11/29/1999 DTaP/Tdap/Td Vaccines (2 - Td or Tdap) 02/02/2024 02/01/2014, 02/26/2008 COVID-19 Vaccine ( - 2023- season) 2025 Influenza Vaccine (#1) [...] Narrative 01/22/2025 11:38 AM EDT [facility] [address] [place] [address] [place] [address] Ultrasound Report Signed Patient: Aurora Ferrara MR#: [id number] : 1980 Acct:[id number] Age/Sex: 44 / F ADM Date: 01/22/25 Loc: HO.MAMMO Attending Dr: Stan KNOWLES Ordering Physician: STAN MARKS CNM Date of Service: 01/22/25 Procedure(s): US breast RT limited Accession Number(s): [id number] cc: STAN MARKS CNM EXAMINATIONS: 1. MM [...] 01/22/25 1135 DD/ 1106 TD/TT: 01/22/25 1120 Gig Tender: Procedure Note Donotuseinterpreter, Image - 01/22/2025 [facility] [address] [place] [address] Ultrasound Report Signed Patient: Aurora Ferrara [facility]#: [id number] : 1980Acct:[id number] Age/Sex: 44 / FADM Date: 01/22/25 Loc: HO.MAMMO Attending Dr: Stan Marks CNM Ordering Physician: STAN MARKS CNM Date of Service: 01/22/25 Procedure(s): US breast RT limited Accession Number(s): [id number] cc: STAN MARKS CNM EXAMINATIONS: 1. MM [...] 01/22/25 1135 DD/ 1106 TD/TT: 01/22/25 1120 Gig Tender: us Stan Marks CNM IMG US PROCEDURES Final R esult * BI Mammogram Diagnostic Tomosynthesis Bilateral (01/22/2025 10:45 AM EDT) Anatomical Region Laterality Modality Breast Bilateral Mammography 01/22/2025 10:4 5 AM EDT Narrative 01/22/2025 11:38 AM EDT [facility] [address] [place] [address] Mammography Report Signed Patient: Aurora Ferrara MR#: [id number] : 1980 Acct:[id number] Age/Sex: 44 / F ADM Date: 01/22/25 Loc: HO.MAMMO Attending Dr: Stan Marks CNM Ordering Physician: STAN MARKS CNM Results: 1 Negative Date of Service: 01/22/25 Follow Up: 1 Year From Orig ina Mammogram Procedure(s): MM tomosynthesis diagnostic BI Accession Number(s): [id number] cc: STAN MARKS CNM EXAMINATIONS: 1. MM [...] 01/22/25 1135 DD/ 1045 TD/TT: 01/22/25 1102 Gig Tender: Procedure Note Donotuseinterpreter, Image - 01/22/2025 [facility] [address] [place] [address] Mammography Report Signed Patient: Aurora Ferrara [facility]#: [id number] : 1980Acct:[id number] Age/Sex: 44 / FADM Date: 01/22/25 Loc: HO.MAMMO Attending Dr: Stan Marks CNM Ordering Physician: STAN MARKSesults: 1 Negative Date of Service: 01/22/25Follow Up: 1 Year From Orig ina Mammogram Procedure(s): MM tomosynthesis diagnostic BI Accession Number(s): [id number] cc: STAN MARKS CNM EXAMINATIONS: 1. MM [...] Alex MD 01/22/2025 11:35 AM EDT RP Dictated By: Juan Carlos Alex MD Signed By: <Electronically signed by Juan Carlos Alex MD in OV> 01/22/25 1135 DD/ 1045 TD/TT: 01/22/25 1102 Gig Tender: Stan Marks CNM IMG BI PROCEDURES Final R esult * (ABNORMAL) Bacterial Vaginosis Panel (01/18/2025 2:59 PM EDT) Only the most recent of2 resultswithin the time period is included. TRICHOMONAS VAGINALIS DETECTION BY PCR NOT DETECTED Not Detect [facility] BACTERIAL VAGINOSIS DETECTION BY PCR POSITIVE(A) Negative [facility] Comment:The BV organism targ ets [...] GROUP DETECTION BY PCR DETECTED(A) Not Detect [facility] Tiffany glab krusei PCR NOT DETECTED Not Detect [facility] Swab Vaginal structure / Unknown 01/18/2025 2:59 PM EDT 01/18/2025 4:40 PM EDT [facility] MICROBIOLOGY - GENERA L ORDERABLES Final Result [facility] [address] [place] [phone] * (ABNORMAL) POCT Urinalysis (01/18/2025 2:56 [...] Date 53,126 Urine 01/18/2025 2:56 PM EDT us Valente Valenzuela MD POINT OF CARE TEST ENTER/EDIT OR DERABLES Final Result * (ABNORMAL) Urinalysis, Complete, with Reflex to Culture (01/18/2025 2:50 PM EDT) Color Urine Dark Yellow [facility] Appearance Urine Clear [facility] PH 7.0 5.0 - 9.0 [facility] Glucose Urine UA Negative Negative mg/dL [facility] Urine Blood Negative Negative [facility] Specific [place] - Urine 1.025 1.005 - 1.025 [facility] Urine Protein Trace Neg-Trace mg/dL [facility] Urine Ketones Trace Negative mg/dL [facility] Nitrite Urine Negative Negative [facility] Leukocyte Esterase Urine Small (1+)(A) Negative [facility] RBC Urine 0-2 0 - 2 /HPF [facility] Urine WBC 0-5 0 - 5 /HPF [facility] Urine Squamous Epithelial Cell 3-5 0 - 2 /HPF [facility] Urine Bacteria None Seen None Seen [facility] Hyaline Casts, Urine 0-2 0 - 2 /LPF [facility] Urine 01/18/2025 2:50 PM EDT 01/18/2025 4:40 PM EDT Narrative [facility] - 01/18/2025 5:02 PM EDT Urine, Clean Catch us Valente Valenzuela MD LAB URINE ORDERABLES Final Resul t [facility] [address] [place] [phone] * Culture, Urine, Routine (01/18/2025 12:00 AM EDT) Urine Urine specimen obtained by clean catch procedure / Unknown 01/18/2025 01/18/2025 Comment:UACC Narrative [facility] - 01/20/2025 10:19 AM EDT Urine Culture No growth. Specimen Source: Urine clean catch us Valente Name MD LAB MICROBIOLOGY - GENERAL ORDER SERGIO Final Result [facility] [address] [place] [phone] * US Pelvis Transvaginal (01/15/2025 8:55 PM EDT) Anatomical Region Laterality Modality Pelvis Ultrasound 01/15/2025 8:55 PM EDT Narrative 01/15/2025 8:56 PM EDT [address] [address] Ultrasound Report Signed Patient: Aurora Ferrara MR#: [id number] : 1980 Acct:[id number] Age/Sex: 44 / F ADM Date: 01/15/25 Loc: HO.US Attending Dr: Stan Marks CNM Ordering Physician: STAN MARKS CNM Date of Service: 01/15/25 Procedure(s): US pelvic and transvaginal Accession Number(s): [id number] cc: STAN MARKS CNM CLINICAL HISTORY: AUB [...] in OV> 01/15/252055 DD/ 54 TD/TT: 01/15/252054 Gig Tender: Procedure Note Donotuseinterpreter, Image - 01/15/[address] [address] Ultrasound Report Signed Patient: Aurora Ferrara [facility]#: [id number] : 1980Acct:[id number] Age/Sex: 44 / FADM Date: 01/15/25 Loc: HO.US Attending Dr: Stan Marks CNM Ordering Physician: STAN MARKS CNM Date of Service: 01/15/25 Procedure(s): US pelvic and transvaginal Accession Number(s): [id number] cc: STAN MARKS CNM CLINICAL HISTORY: AUB [...] in OV> 01/15/252055 DD/ 54 TD/TT: 01/15/252054 Gig Tender: Stan KNOWLES IMG US PROCEDURES Edited Result - Final * POCT , urine manually resulted (01/05/2025 2:33 PM EDT) Preg Test, Ur Negative Negative, Indeterminate, None Detected, Invalid, Specimen unsatisfactory for evaluation, Weakly Positive, 2+ QC Media Lot # [id number] Lot# Expiration Date [id number] Urine 01/05/2025 2:33 PM EDT Stan Marks [facility] POINT OF CARE TEST ENTER/ EDIT ORDERABLES Final Result * HPV DNA, Low/High Risk (01/05/2025 2:20 PM EDT) HPV High Risk Negative Negative [facility] HPV Genotype 16 Negative Negative [facility] HPV Genotype 18 Negative Negative [facility] Comment:HPV testing performe d at [facility] (CLIA#[id number]), [address] [place] [address].Testing for HPV was performed using the [employer] ARIANA 6800system. The presence of HPV in the female [...] 2:20 PM EDT 01/06/2025 7:35 AM EDT Stan KNOWLES LAB BLOOD ORDERABLES Delphine l Result [facility] [address] [place] [phone] * Pap Smear (01/05/2025 2:20 PM EDT) Swab Cervix uteri structure / Unknown 01/05/2025 2:20 PM EDT 01/06/2025 7:35 AM EDT [facility] - 01/19/2025 8:59 AM EDT ----- ------- Name: Aurora Ferrara Age/Sex: 44/F : 1980 Unit#: [id number] Attend Dr: STAN MARKS CNM Re01/05/25 Status: [facility] REF Location: [facility] Disch: ----- ------- SPEC : [id number] RECD: 01/06/25 STATUS: NELI JOHN NUM: [id number] ROYCE: 01/05/25-[address] [facility] [address]: STAN MARKS CNM ENTERED: 01/06/25 SP TYPE: Pap [facility] OT : ORDERED: Pap Smear Interpretation Satisfactory for evaluation [...] and HPV testing will be performed at [facility] (CLIA #[id number]), [address] [place] [address]. Testing for HPV was performed using the [employer] ARIANA 6800 system. The presence of HPV in the [...] detected. All professional services are performed by [facility] ([address] [place], [place] [id number]; ; CLIA #[id number]). The PAP Test is a screening procedure with the inherent possibility of both false negative and false positive results. Results should be interpreted in the context of historic and current clinical findings. Reliability of the PAP Test is enhanced by performing the test on a regular repetitive basis. CONTINUED ON NEXT PAGE ----- ------- Name: Aurora Ferrara Age/Sex: 44/F : 1980 Unit#: [id number] Attend Dr: STAN MARKS CNM Re01/05/25 Status: DEP REF Location: [facility] Disch: ----- ------- SPEC : [id number] RECD: 01/06/25 STATUS: NELI JOHN NUM: [id number] ROYCE: 01/05/[address] [facility] [address]: STAN MARKS CNM ENTERED: 01/06/25 SP TYPE: Pap Smr OT DR: ORDERED: Pap Smear ----- ------- Signed (signature on file) KYRA Edwards (ASCP) 01/19/25 0859 ----- ------- END OF REPORT Stan KNOWLES LAB CYTOLOGY ORDERABLES F inal Result [facility] [address] [place] [phone] * STI testing add on (NG, CT, Trich) (01/05/2025 12:00 AM EDT) Trichomonas (NAAT) NOT DETECTED NOT DETECTED [facility] Comment:The analytical perfo rmance characteristics of thisassay have been determined by [employer]. Themodifications have not been cleared or approved bythe FDA. This assay has been validated pursuant to theCLIA regulations and is used for clinical purposes.For additional information, please refer tohttp://education.HigherNext/faq/Trichomonastma(This link is being provided for information/educational purposes only.)THIS TEST WAS PERFORMED AT:[employer] [place] [phone] DELGADO MD CTNG Ref Lab NOT DETECTED NOT DETECTED [facility] NG Ref Lab NOT DETECTED NOT DETECTED [facility] ThinPrep vial Cervix uteri structure / Unknown 01/05/2025 01/06/2025 7:35 AM EDT us Stan Marks CN LAB CYTOLOGY ORDERABLES F inal Result [facility] [address] [place] [phone] * Lipid Panel, Standard (11/13/2024 9:53 AM EDT) Triglycerides 46 <150 mg/dL [facility] Comment:Desirable Triglyceri de: less than 150 mg/dLBorderline High Triglyceride 150-199 mg/dLHigh Triglyceride: 200-499 mg/dLVery High Triglyceride: greater than or equal to 5OO mg/dL Cholesterol 172 <200 mg/dL [facility] Comment:Desirable Cholestero l: less than 200 mg/dLBorderline High Cholesterol: 200-239 mg/dLHigh Cholesterol: greater than 239 mg/dL LDL Cholesterol Calculated 94 <100 mg/dL [facility] Comment:Desirable LDL: less than 100 mg/dLNear Optimal/Above Optimal LDL: 110- 129 mg/dLBorderline High LDL: 130-159 mg/dLHigh LDL: 160-189 mg/dLVery High LDL: greater than or equal to 190 mg/dL HDL Cholesterol 69 >40 mg/dL [facility] Comment:Desirable HDL: great er than 40 mg/dL Note: This HDL assay may give artificially low results in patients with liver disease. 11/13/2024 9:53 AM EDT 11/13/2024 9:53 AM EDT us Generic External Data Provider LAB BLOOD ORDERAB LES Final Result Performing Organization Address [facility]/ZIP Co de Phone Number [facility] [address] [place] [phone] * Hepatitis C Antibody with Reflex to HCV, RNA, Quantitative, Real-Time PCR (04/09/2024 12:15 PM EDT) Hepatitis C Antibody Nonreactive Nonreactive [facility] Comment:Antibodies to HCV no t detected; does not exclude early acuteHCV infection. Blood Venous blood specimen / Unknown 04/09/2024 12:15 PM EDT 04/09/2024 1:17 PM EDT us Magaly Maldonado MD LAB BLOOD ORDERABLES Final Result Performing Organization Address [facility] Co de Phone Number [facility] [address] [place] [phone] * HIV-1/2 Antigen and Antibodies, Fourth Generation, with Reflexes (04/09/2024 12:15 PM EDT) HIV AB/AG Nonreactive Nonreactive [facility] Comment:HIV-1 p24 Ag and/or HIV-1/HIV-2 Ab not detected.A test result that is nonreactive does not exclude thepossibility of exposure to or infection with HIV-1 and/orHIV-2. Nonreactive results in this assay for individualswith prior exposure to HIV-1 and/or HIV-2 may be due toantigen and antibody levels that are below the limit ofdetection of this assay.The [employer] HIV Ag/Ab Combo assay result andsupplemental assay results should be interpreted inconjunction with the patient's clinical presentation,history and other laboratory results. If the results areinconsistent with clinical evidence, additional testing issuggested to confirm the result. Blood Venous blood specimen / Unknown 04/09/2024 12:15 PM EDT 04/09/2024 1:17 PM EDT us Magaly Maldonado MD LAB BLOOD ORDERABLES Final Result [facility] [address] [place] [phone] from Last 3 Months or Most Recently Relevant to Health Maintenance Insurance [facility] C3 Care Teams Senior Game Advisor Relationship Specialty Start Date End Date Magaly Mcrae MD [address] [place] [phone] PCP - General Family Medicine 02/19/18
--- OUTSIDE RECORDS SUMMARY | 2025-03-24 08:37 | XMS_ITS | Encounter Summary ---
Author Organization [facility] Address [address] [place] [address] Care Team Providers Care Chief Pharmacist Name Role Phone Thu Tam MD Primary Care Provider + [phone] Encounter Details Date Type Department Care Team (Late st Contact Info) Description 02/04/2025 Lab Requisition [facility] - Main [facility] [address] [place] [phone] Bettina Sanford MD [address] [facility] [address] [place] [phone] Abnormal uterine and vaginal bleeding, unspecified Social [...] No endometrium identified 02/05/2025 1:27 PM EDT [facility] ([facility] Clinical Information Abnormal uterine bleeding 02/05/2025 1:27 PM EDT [facility] Gross Description A. Endometrium, biopsy: Labeled with the patient's name and information. Received in formalin is a 1.1 x 0.8 x 0.2 cm aggregate of irregular pink-red soft tissue fragments admixed with mucoid substance which is submitted in toto in a mesh bag in one cassette, multiple pieces, x 2. LENARD 02/05/2025 1:27 PM EDT [facility] Disclaimer Unless otherwise specified, all tissue is 10% NB formalin fixed and paraffin embedded. 02/05/2025 1:27 PM EDT [facility] Tissue Endometrial structure / Unknown 02/04/2025 02/04/2025 12:36 PM EDT us Bettina Sanford MD LAB PATHOLOGY ORDERABLES Final Result [facility] [address] [place] [address], documented in this encounter Visit Diagnoses Diagnosis Abnormal uterine and vaginal bleeding, unspecified documented in this encounter Care Teams Chief Pharmacist Relationship Specialty Start Date End Date Thu Tam MD [address] [place] [phone] PCP - General Internal Medicine 03/13/24 documented as of this encounter
--- OUTSIDE RECORDS SUMMARY | 2025-03-24 08:37 | XMS_ITS | Clinical Summary ---
Author Organization 175 [facility] Address [address] [place] [address] Phone Care Team Providers Care Feather Cutting Machine Feeder Name Role Phone Thu Tam MD Primary Care Provider + [phone] Allergies No known active allergies Medications DICLOFENAC [...] Department Care Team Description 02/04/2025 Lab Requisition [facility] - Main Lab [address] [facility] [place] [place] [phone] Bettina Sanford MD Abnormal uterine and vaginal bleeding, unspecified 01/29/2025 10:30 AM EDT Consult Orthopedic Surgery [facility] [address] [facility] [address] [place] [address] Dar Taylor MD Knee pain, left (Primary Dx); Old tear of medial meniscus of left knee, unspecified tear type 01/14/2025 10:30 AM EDT Office Visit Orthopedic Surgery [facility] 160 [address] [facility] [address] [place] [phone] Niki Ramsey MD Derangement of unspecified medial [...] of 3 - 19+ 3-dose series) 11/29/1999 HPV Vaccines (1 - 3-dose SCD M series) 11/29/2007 Social Influencers of Health Screening 05/13/2022 Breast Cancer Screening 09/28/2023 09/27/2021 DTaP,Tdap,and Td Vaccines (3 - Td or Tdap) 02/02/2024 02/01/2014, 02/26/2008 Depression Screening 06/10/2024 COVID-19 Vaccine (1 - 2023-2 5 season) 2025 Influenza Vaccine (#1) 2025 [...] LAB CHEMISTRY METHOD 02/04/2025 5:46 PM EDT [facility] Testosterone, Free 0.1 0.0 - 0.5 ng/dL LAB CHEMISTRY METHOD 02/04/2025 5:46 PM EDT [facility] Testosterone, Bioavailable 2 1 - 9 ng/dL LAB CHEMISTRY METHOD 02/04/2025 5:46 PM T [facility] Sex Hormone Binding 148.1 See Comment nmol/L LAB CHEMISTRY METHOD 02/04/2025 5:46 PM EDT [facility] Comment: FEMALES: pre-menopausal 10.8 - >180 [...] LAB CHEMISTRY METHOD 02/04/2025 5:46 PM T [facility] Blood Venous blood specimen / Unknown Venipuncture / Unknown 02/04/2025 11:15 AM EDT 02/04/2025 12:47 PM EDT us Bettina Sanford MD LAB BLOOD ORDERABLES Fin al Result [facility] [address] [place] [address], [place] [phone] * Sex hormone binding globulin (02/04/2025 11:15 AM EDT) Pathologist [facility] Sex Hormone Binding 148.1 See Comment nmol/L LAB CHEMISTRY METHOD 02/04/2025 5:46 PM EDT [facility] Comment: FEMALES: pre-menopausal 10.8 - >180 [...] ORDERABLES Fin al Result Performing Organization Address [facility] Co de Phone Number [facility] [address] [place] [address], [place] [phone] * Progesterone (02/04/2025 11:15 AM EDT) Pathologist [facility] Progesterone <0.2 ng/mL LAB CHEMISTRY METHOD 02/04/2025 2:58 PM EDT [facility] Comment: PROGESTERONE REFERENCE RANGES (NG/ML) FEMALES [...] ORDERABLES Fin al Result Performing Organization Address [facility]/ZIP Co de Phone Number [facility] [address] [place] [address], [place] [phone] * Estradiol (02/04/2025 11:15 AM EDT) Estradiol <11 See below pcg/mL LAB CHEMISTRY METHOD 02/04/2025 1:45 PM EDT [facility] Comment: ESTRADIOL REFERENCE RANGES (PG/ML) FEMALES [...] ORDERABLES Fin al Result Performing Organization Address [facility]/ZIP Co de Phone Number [facility] [address] [place] [address], * Luteinizing hormone (02/04/2025 11:15 AM EDT) Luteinizing Hormone 14.8 See Comment mIU/mL LAB CHEMISTRY METHOD 02/04/2025 1:45 PM EDT [facility] Blood Venous blood specimen / Unknown Venipuncture / Unknown 02/04/2025 11:15 AM EDT 02/04/2025 12:47 PM EDT Narrative [facility] - 02/04/2025 1:45 PM EDT LH REFERENCE RANGES (MIU/ML) FEMALES NORMALLY MENSTRUATING: FOLLICULAR PHASE 1.9 - 12.8 MIDCYCLE PEAK 22.8 - 76.1 LUTEAL PHASE 0.6 - 13.5 POSTMENOPAUSAL: ON HRT 1.1 - 52.4 UNTREATED 8.6 - 61.8 Bettina Sanford MD LAB BLOOD ORDERABLES Fin al Result Performing Organization Address [facility] Co de Phone Number [facility] [address] [place] [address], [place] [phone] * Follicle stimulating hormone (02/04/2025 11:15 AM EDT) Follicle Stimulating Hormone 51.1 See Comment mIU/mL LAB CHEMISTRY METHOD 02/04/2025 1:45 PM EDT [facility] Comment: FSH REFERENCE RANGES (MIU/ML) FEMALES NORMALLY MENSTRUATING: FOLLICULAR PHASE 2.3 - 12.6 MIDCYCLE PEAK 5.2 - 17.5 LUTEAL PHASE 1.7 - 9.5 POSTMENOPAUSAL: ON HRT 5.9 - 72.8 UNTREATED 12.7 - 132.2 Blood Venous blood specimen / Unknown Venipuncture / Unknown 02/04/2025 11:15 AM EDT 02/04/2025 12:47 PM EDT Bettina Sanford MD LAB BLOOD ORDERABLES Fin al Result Performing Organization Address City/[facility]/ZIP Co de Phone Number [facility] [address] [place] [address], [place] [phone] * Tissue Exam (02/04/2025) Final Diagnosis Endometrial biopsy: Benign endocervical glandular epithelium and inflamed squamous epithelium No endometrium identified 02/05/2025 1:27 PM EDT [facility] Clinical Information Abnormal uterine bleeding 02/05/2025 1:27 PM EDT [facility] Gross Description A. Endometrium, biopsy: Labeled with the patient's name and information. Received in formalin is a 1.1 x 0.8 x 0.2 cm aggregate of irregular pink-red soft tissue fragments admixed with mucoid substance which is submitted in toto in a mesh bag in one cassette, multiple pieces, x 2. LENARD 02/05/2025 1:27 PM EDT [facility] Disclaimer Unless otherwise specified, all tissue is 10% NB formalin fixed and paraffin embedded. 02/05/2025 1:27 PM EDT [facility] Tissue Endometrial structure / Unknown 02/04/2025 02/04/2025 12:36 PM EDT Bettina Sanford MD LAB PATHOLOGY ORDERABLES Final Result [facility] [address] [place] [address], * XR Knee 3 Views Left (01/29/2025 10:17 AM EDT) Anatomical Region Laterality Modality Lower Extremities, Knee Left Computed Radiography Narrative 01/29/2025 10:49 AM EDT X-rays January 29, 2025. Bilateral knee PA weightbearing views. Lateral view of the left knee. [place] view of the left knee. No acute osseous abnormalities. No significant malalignment. Overall good preservation of the articular cartilage. Dar Taylor MD IMG XR PROCEDURES Final Result from Last 3 Months Insurance MEDICAID - [place] Care Teams Feather Cutting Machine Feeder Relationship Specialty Start Date End Date Thu Tam MD [address] [place] [phone] PCP - General Internal Medicine 03/13/24
[2025-03-24 22:41] VITALS: BMI 27.2
--- NOTE | 2025-03-24 22:41 | A.OFFVIS_ITS ---
VS Expanded 03/24/25 22:41 Height 5 ft 4.5 in Weight 161 lb BMI 27.2 Intake Visit Reasons: TV Pre Op Panniculectomy 04/06/25 *CUSTOMER RELATIONS ADVISOR* [employer] Required: Yes [employer] Porter Services: [employer] Present Information Interpreted: clinical only Allergies No Known Allergies Allergy (Verified 03/24/25 22:42) Medication List - Last Reconciled 03/24/25 by Kashmir Freeman MD amitriptyline 10 mg PO BEDTIME bupropion HCl SR 150 mg PO DAILY cephalexin 500 mg PO Q12H cholecalciferol (vitamin D3) (Vitamin D3) 25 mcg PO DAILY clotrimazole 1% 1 appl topical BID docusate sodium (Colace) 100 mg PO DAILY fluticasone propionate 50 mcg/actuation 1 spray intranasal BID hydroxyzine HCl 25 mg PO BID PRN recovhriezyf-xcw-adif-FA-vit K 45 mg iron- 800 mcg-120 mcg (Bariatric Multivitamins) 1 cap PO .daily in evening ondansetron 4 mg PO Q12H sumatriptan succinate 0 mg PO vitamin A palmitate 10,000 units PO DAILY HPI HPI TV Pre Op Panniculectomy 04/06/25 *CUSTOMER RELATIONS ADVISOR*: Details: Start time: 9.00am, End time: 9.30am ?I spent 25 minutes speaking with the patient on the phone plus an additional 5 minutes reviewing and updating records for a total of 30 minutes HPI Comments Details: Overall weight loss: 78.2lbs, or 32.6% TBWL This is her preop visit for panniculectomy Is using the Isopure Zero protein powder and Atkins bars [facility] Medical History (Updated 03/24/25 @ 22:38 by Kashmir Freeman MD) Postgastrectomy malabsorption GERD (gastroesophageal reflux disease) Depression Hx of bipolar disorder Panic attack Surgical History History of sleeve gastrectomy History of endometrial ablation H/O parathyroidectomy History of esophagogastroduodenoscopy (EGD) History of tonsillectomy and adenoidectomy Hx of tubal ligation Family History Mother Heart disease Arthritis Father Liver disease Herniated disc Brother No problems noted. Brother No problems noted. Brother No problems noted. Sister Diabetes Sister Migraine Sister HIV disease Sister No problems noted. Sister No problems noted. Daughter Asthma Son No problems noted. Paternal Aunt Breast cancer Social History Household Members: Family Housing: Apartment Are you a primary director of home care hospice to a significant other at home: No Do you presently have visiting nurse or other home services: No Alcohol intake: never Patient Tobacco Use Status: Former Tobacco user Tobacco use type: Cigarette service: No Current occupational status: unemployed Female Reproductive History Menstrual Age of Menarche: 13 Physical Exam Vital Signs: BMI result Body Mass Index 27.2 Telehealth Telehealth Telehealth Platform: Telephone Location of provider rendering services: practice address Location of patient: address on file Patient Identification confirmed using: Name, : Yes Telehealth method: voice only Patient verbally consented to treatment: Yes Patient verbally consented to billing insurance company: Yes Patient informed of any privacy concerns related to visit: Yes Minutes spent on Phone/Video with Pt.: 30 Assessment & Plan Assessment & Plan (1) Excess skin: Code(s): L98.7 - Excessive and redundant skin and subcutaneous tissue Category: Medical Plan: 1. Plan for panniculectomy. Risks of infection, bleeding, asymmetry, wound d ehiscence and blood clots were discussed with the patient. 2. You will have a drain the abdomen that may stay a few weeks before it may be removed 3. You will need to be doing sponge baths the first 1-2 weeks. No showers. You need to have help at home to get you up and limit your activities as much as possible for at least the 4-6 weeks after surgery 4. We will arrange for a visiting nurse to come at home to help you with dressing changes and send me pictures of the procedures. We will send at your home supplies for the dressing changes. 5. Change nutritional plan to one Isopure zero shake (mix HALF scoop with 8oz almond milk) at 9am-11am, one Atkins protein bar at 12pm-2pm, another Isopure zero shake (mix HALF scoop with 8oz almond milk) at 3pm-5pm, one meal at 6pm (4 forks of protein and 4 forks of salad or vegetables) and another Atkins protein bar at 8pm-10pm. This will improve weight loss and healing after surgery. 6. Continue all vitamins. Stop the hormone replacement therapy and do not restart until one month after surgery 7. Do blood work not fasting any day between Saturday03/29/25 and Saturday04/02/25 and belt picker the antibiotic prescription from your pharmacy 8. Risks and complications were discussed the possibility of bleeding that may require transfusion, loss of the umbilicus, wound dehiscence or infection, dog ears , flap asymmetry. We also discussed the importance of strict avoidance of weight lifting. 9. Avoid aspirin, motrin, ibuprofen, Aleve, Advil, Naproxyn. Only Tylenol is OK Orders: Orders Type and Screen 03/24/25 K91.2 - Postsurgical malabsorption, not elsewhere classified, Z90.3 - Acquired absence of stomach [part of] Complete Blood Count Auto Diff 03/24/25 K91.2 - Postsurgical malabsorption, not elsewhere classified, Z90.3 - Acquired absence of stomach [part of] Comprehensive Met. Panel 03/24/25 K91.2 - Postsurgical malabsorption, not elsewhere classified, Z90.3 - Acquired absence of stomach [part of] Partial Thromboplastin Time 03/24/25 K91.2 - Postsurgical malabsorption, not elsewhere classified, Z90.3 - Acquired absence of stomach [part of] Prothrombin Time INR 03/24/25 K91.2 - Postsurgical malabsorption, not elsewhere classified, Z90.3 - Acquired absence of stomach [part of] Medications: New ondansetron Use it only if you have nausea 4 mg PO Q12H 20 tabs 0RF nausea and vomiting R11.0 - Nausea docusate sodium (Colace) 100 mg PO DAILY 90 caps 0RF K59.00 - Constipation, unspecified cephalexin 500 mg PO Q12H 60 caps 2RF M79.3 - Panniculitis, unspecified
== END 2025-03-26 09:33 | disposition home or self-care (01) ==
LOC: HO.HBS 08:18
PROVIDERS: PCP Internal Medicine; Visit Provider Surgery
DX: E66.3 Overweight (principal); Z68.27 Body mass index [BMI] 27.0-27.9, adult
CPT/HCPCS: 99214

== ENCOUNTER 2025-04-06 07:43 | Day surgery (SDC) | payer MEDICAID, SELFPAY ==
--- OUTSIDE RECORDS SUMMARY | 2025-03-03 15:40 | XMS_ITS | Encounter Summary ---
Author Organization [employer] Address [address] [facility] [address] [place] [address] Care Team Providers Care Learning Analyst Name Role Phone Magaly Mcrae MD Primary Care Provide r Encounter Details Date Type Department Care Team ([facility] st Contact Info) Description 02/13/2024 Telephone [facility] MEDICINE [address] [place], [place] [phone] Magaly Mcrae MD [address] [place], [place] [phone] Social History Tobacco Use Types Packs/Day Years [...] Care Team (Late st Contact Info) Description 04/13/2025 3:15 PM EST Office Visit [facility] MEDICINE [address] [place] [phone] Magaly Mcrae MD [address] [place] [phone] documented as of this encounter Visit Diagnoses Not on filedocumented in this encounter Additional Health Concerns Assessment Noted Time PHQ-9 Depression Total Score: 11 023 3:07 PM EDT documented as of this encounter Care Teams Learning Analyst Relationship Specialty Start Date End Date Magaly Mcrae MD [address] [place] [phone] PCP - General Family Medicine 02/19/18 documented as of this encounter
--- OUTSIDE RECORDS SUMMARY | 2025-03-03 15:41 | XMS_ITS | Encounter Summary ---
Author Organization [facility] Address [address] [place] [address] Care Team Providers Care Line Cook Name Role Phone Thu Tam MD Primary Care Provider + [phone] Encounter Details Date Type Department Care Team (Late st Contact Info) Description 02/04/2025 Lab Requisition [facility] [address] [place] [phone] Bettina Sanford MD [address] [facility] [address] [place] [phone] Abnormal uterine and vaginal bleeding, unspecified Social History Tobacco Use Types Packs/Day Years Used Date Smoking Tobacco: Never Assessed Comments No Sex and Gender Information Value Date Recorded Sex Assigned at Not on file Legal Sex Female 11:37 PM EST Gender Identity Not on file Sexual Orientation Not on file documented as of this encounter Plan of Treatment Not on file documented as of this encounter Procedures Procedure Name Priority Date/Time Associated Diagnosis Comments TISSUE EXAM Routine 02/04/2025 Abnormal uterine and vaginal bleeding, unspecified documented in this encounter Results * Tissue Exam (02/04/2025) Final Diagnosis Endometrial biopsy: Benign endocervical glandular epithelium and inflamed squamous epithelium No endometrium identified 02/05/2025 1:27 PM EDT [facility] Clinical Information Abnormal uterine bleeding 02/05/2025 1:27 PM EDT [facility] Gross Description A. Endometrium, biopsy: Labeled with the patient's name and information. Received in formalin is a 1.1 x 0.8 x 0.2 cm aggregate of irregular pink-red soft tissue fragments admixed with mucoid substance which is submitted in toto in a mesh bag in one cassette, multiple pieces, x 2. LENARD 02/05/2025 1:27 PM EDT [facility] Disclaimer Unless otherwise specified, all tissue is 10% NB formalin fixed and paraffin embedded. 02/05/2025 1:27 PM EDT [facility] Tissue Endometrial structure / Unknown 02/04/2025 02/04/2025 12:36 PM EDT us Bettina Sanford MD LAB PATHOLOGY ORDERABLES Final Result [facility] [address] [place] [address], documented in this encounter Visit Diagnoses Diagnosis Abnormal uterine and vaginal bleeding, unspecified documented in this encounter Care Teams Line Cook Relationship Specialty Start Date End Date Thu Tam MD [address] [place] [phone] PCP - General Internal Medicine 03/13/24 documented as of this encounter
--- OUTSIDE RECORDS SUMMARY | 2025-03-03 15:41 | XMS_ITS | Clinical Summary ---
Author Organization [employer] Address [address] [place] [address] Care Team Providers Care Adobe Block Maker Name Role Phone Magaly Mcrae MD Primary [...] at bedtime (pain and swelling). 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 Do not crush or chew. 60 capsule 1 5 10/24/19 26 Active fluticasone (Flonase) 50 MCG/ACT nasal sprayIndications :Seasonal allergic rhinitis, unspecified trigger Administer 1-2 sprays into each nostril Once per day. Shake gently. Before first use, prime pump. After use, clean tip and replace cap. 16 g 2 5 10/24/19 26 Active SUMAtriptan (Imitrex) 25 MG tabletIndication s:Migraine aura without headache TAKE 1 TABLET BY MOUTH 1 TIME IF NEEDED FOR MIGRAINE. MAY REPEAT DOSE ONCE IN 2 HOURS IF NO RELIEF. DO NOT EXCEED 2 DOSES IN 24 HOURS. 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 09/11/2024 Assessment & Plan (12/21/2024 4:51 PM EDT): C/w same dose venlafaxine Assessment & Plan (10/23/2024 1:50 PM EDT): I will go up on the dose of venlafaxine to 75 mg daily I will call patient again in about 6 weeks to see how she is doing Assessment & Plan (09/11/2024 4:33 PM EDT): I will start her on venlafaxine 37.5 mg daily I will call her in about 4 to 6 weeks to see how she is doing on medication Seasonal allergic rhinitis 09/11/2024 Assessment & Plan (10/23/2024 1:50 PM EDT): I will refill her current meds for her allergic rhinitis Irritant contact dermatitis due to detergent Assessment [...] Plan (02/07/2024 1:00 PM EDT): Refer to [facility]. Chronic pain of left knee 10/24/2022 Assessment [...] help PLAN: 1. Follow up with [facility]: Not recommended for follow-up 2. Patient goal is to obtain her meds and become stable. 3. Behavioral Recommendations a. Ind. Therapy b. Med. Management c. Coping skills provided. Assessment & Plan (10/25/2022 4:25 PM EDT): Counseling done BN referral I will start her again on Wellbutrin 150mg daily Hypercalcemia 04/10/2012 Encounters Date Type Department Care Team Description 02/15/2025 Patient Outreach [facility] MEDICINE [address] [place] [phone] Magaly Mcrae MD Care Coordination ([facility] Nguyễn Sandovalnc f/u, program graduation) 01/28/2025 Patient Outreach [address] [address] Magaly Mcrae MD Care Management (C3- F/U call) 01/27/2025 Patient Outreach [address] [address] Magaly Mcrae MD Care Coordination ([facility]/Nguyễn Mcclainnc f/u call) 01/25/2025 Orders Only [address] [address] Stan Marks CNM Mass of upper outer quadrant of right breast (Primary Dx) 01/20/2025 Orders Only [address] [address] Rebekah Lloyd CNP Bacterial vaginosis (Primary Dx) 01/20/2025 Results Follow-Up [address] [address] Rebekah Lloyd CNP Urinalysis, Complete, with Reflex to Culture, Bacterial Vaginosis Panel 01/18/2025 3:20 PM EDT Office Visit [facility] [address] [place] [phone] Valente Valenzuela MD Yeast infection (Primary Dx); Vaginal odor; Urinary tract infection without hematuria, site unspecified 01/18/2025 Orders Only [address] [address] Valente Valenzuela MD 01/18/2025 Travel 01/06/2025 Results Follow-Up [address] [address] Stan Marks CNM POCT , urine manually resulted, Bacterial Vaginosis Panel, US Pelvis Transvaginal, Additional followed-up results: 3 01/06/2025 Orders Only [address] [address] Stan Marks CNM Abnormal uterine bleeding (AUB) (Primary Dx) 01/05/2025 1:45 PM EDT Office Visit [address] [address] Stan Marks CNM Mass of upper outer quadrant of right breast (Primary Dx); Abnormal uterine bleeding (AUB); Routine cervical smear; Screening examination for venereal disease; Vaginal odor 01/05/2025 Orders Only [address] [address] Stan Marks CNM 01/05/2025 Travel 01/04/[address] [address] Magaly Mcrae MD Nurse Triage 12/25/2024 Patient Outreach [address] [address] Magaly Mcrae MD Care Coordination ([facility]/W Nguyễn Sandovalnc f/u call ) 12/21/2024 11:30 AM EDT Telemedicine [address] [address] Magaly Mcrae MD Eczema, unspecified type; 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 12/21/2024 Travel 12/18/[address] [place] [address] Magaly Mcrae MD Chart Prep 12/16/2024 Patient Outreach [facility] MEDICINE [address] [place] [address] Magaly Mcrae MD Care Management (C3- F/U call # 3) from Last 3 Months Immunizations Immunization Administration Dates Next Due Influenza injectable quadrivalent [...] Q2 Not on file 03/24/2024 Comments No Intention Date Recorded No desire to become (finding) 0 01/05/2025 Sex and Gender Information Value Date Recorded Sex Assigned at Female 04/09/2022 10:18 AM EDT Legal Sex Female 10:18 AM EDT Gender Identity Female 04/09/2022 10:18 AM EDT Sexual Orientation Straight 04/09/2022 10 :18 AM EDT Last Filed Vital Signs Vital Sign Reading Time Taken Comments Blood Pressure 111/64 01/18/2025 2:45 PM EDT Pulse 61 01/18/2025 2:45 PM EDT Temperature 36.7 C (98.1 F) 01/18/2025 2:45 PM EDT Respiratory Rate 20 01/18/2025 2:45 PM EDT Oxygen Saturation 99% 01/18/2025 2:45 PM EDT Inhaled Oxygen Concentration - - Weight 72.9 kg (160 lb 12.8 oz) 01/18/2025 2:45 PM EDT Height 162.6 cm (5' 4 ) 01/18/2025 2:45 PM EDT Body Mass Index 27.6 01/18/2025 2:45 PM EDT Plan of Treatment Upcoming Encounters Date Type Department Care Team (Late st Contact Info) Description 04/13/2025 3:15 PM EST Office Visit [facility] MEDICINE [address] [place] [phone] Magaly Mcrae MD [address] [place] [address] Health Maintenance Due Date Last Done Comments HPV Vaccines (1 - 3-dose series) 11/29/1995 Hepatitis B Vaccines (1 of 3 - 19+ 3-dose series) 11/29/1999 DTaP/Tdap/Td Vaccines (2 - Td or Tdap) 02/02/2024 02/01/2014, 02/26/2008 COVID-19 Vaccine (1 - 2023- season) 2025 Influenza Vaccine (#1) 2025 9, 04/03/2013, 04/11/2012 Depression Monitoring 03/23/2025 09/21/2024, 025 Alcohol/Substance Use Screening 03/31/2025 03/31/2024 SDOH Screening 09/21/2025 09/21/2024 Disability Screening 12/21/2025 12/21/2024 Family Planning (PISQ) 01/05/2026 01/05/2025 Tobacco Screening 01/05/2026 01/05/2025 Mammogram 01/22/2026 01/22/2025, 01/08, 04/30/2024, Additional history exists Lipid Panel 11/13/2029 11/13/2024, 03/12, 08/31/2022 Cervical Cancer Screening 01/05/2030 HPV/Cotest 01/05/2030 01/05/2025, 05/02/2020 Pap Smear 01/05/2030 01/05/2025, 05/02/2020 Zoster Vaccines (1 of 2) 2030 RSV [...] Years) and At-Risk Patients (6 to 49) Years Aged Out No longer eligible based on patient's age to complete this topic RSV under 20 months Aged Out No longe r eligible based on patient's age to complete this topic Rotavirus Vaccines Aged Out No longer eligible based on patient's age to complete this topic Procedures Procedure Name Priority Date/Time Associated Diagnosis Comments BI US BREAST LIMITED RIGHT Urgent 01/22/2025 11:06 AM EDT Mass of upper outer quadrant of right breast BI MAMMOGRAM DIAGNOSTIC TOMOSYNTHESIS BILATERAL Urgent 01/22/2025 10:45 AM EDT Mass of upper outer quadrant of right breast BACTERIAL VAGINOSIS PANEL Routine 01/18/2025 2:59 PM EDT Vaginal odor Yeast infection POCT URINALYSIS DIPSTICK Routine 01/18/2025 2:56 PM EDT Vaginal odor URINALYSIS, COMPLETE, WITH REFLEX TO CULTURE Routine 01/18/2025 2:50 PM EDT Vaginal odor CULTURE, URINE, ROUTINE Routine 01/18/2025 12:00 AM EDT US PELVIS TRANSVAGINAL Urgent 8:55 PM EDT Abnormal uterine bleeding (AUB) POCT , URINE Routine 01/05/2025 2:33 PM EDT Abnormal uterine bleeding (AUB) BACTERIAL VAGINOSIS PANEL Routine 01/05/2025 2:21 PM EDT Vaginal odor PAP SMEAR Routine 01/05/2025 2:20 PM EDT Routine cervical smear HPV DNA, LOW/HIGH RISK Routine 2:20 PM EDT CHLAMYDIA/N. GONORRHOEAE AND T. VAGINALIS RNA, QUAL,TMA Routine 01/05/2025 12:00 AM EDT Screening examination for venereal disease LIPID PANEL, STANDARD Routine 11/13/2024 9:53 AM EDT HEPATITIS C AB W/REFL TO HCV RNA, QN, PCR Routine 04/09/2024 12:15 PM EDT Encounter for screening mammogram for malignant neoplasm of breast HIV 1/2 ANTIGEN/ANTIBODY, FOURTH GENERATION W/RFL Routine 04/09/2024 12:15 PM EDT Encounter for screening mammogram for malignant neoplasm of breast from Last 3 Months or Most Recently Relevant to Health Maintenance Results * BI US Breast Limited Right (01/22/2025 11:06 AM EDT) Anatomical Region Laterality Modality Breast Right Ultrasound 01/22/2025 11:0 6 AM EDT Narrative 01/22/2025 11:38 AM EDT [facility] [address] [place] [address] Ultrasound Report Signed Patient: Aurora Ferrara MR#: [id number] : 1980 Acct:[id number] Age/Sex: 44 / F ADM Date: 01/22/25 Loc: HO.MAMMO Attending Dr: Stan Marks CNM Ordering Physician: STAN MARKS CNM Date of Service: 01/22/25 Procedure(s): US breast RT limited Accession Number(s): [id number] cc: STAN MARKS CNM EXAMINATIONS: 1. MM DIAGNOSTIC DIGITAL BREAST TOMOSYNTHESIS, BILATERAL 2. Targeted ultrasound of the right breast CLINICAL INFORMATION: Right breast lump in the upper outer quadrant. COMPARISON: Comparison made to multiple prior, most recent , and most remote . TECHNIQUE: Digital breast tomosynthesis is performed in both the craniocaudal and mediolateral oblique views along with computer-aided detection (CAD). Synthesized 2D images are generated from the tomosynthesis. FINDINGS: BREAST COMPOSITION: There are scattered areas of fibroglandular density (ACR BI-RADS breast composition Category b). RIGHT BREAST: No significant masses, suspicious calcifications or other abnormalities are seen. In particular, no suspicious findings adjacent to the skin BB marker placed in the upper outer quadrant. Targeted ultrasound of the right breast was performed at the location of the palpable concern as indicated by the patient. The survey centered at approximately 9 to 10 o'clock position 6 to 12 cm from the nipple did not reveal suspicious sonographic findings. LEFT BREAST: No significant masses, suspicious calcifications or other abnormalities are seen. US/US breast RT limited IMPRESSION: RIGHT BREAST: Negative, no evidence of malignancy. In particular, no sonographic or mammographic findings to account for the patient's palpable concern. Clinical follow-up is recommended. Otherwise, normal interval follow-up mammogram is recommended in 12 months. LEFT BREAST: , no mammographic evidence of malignancy. Normal interval follow-up is recommended in 12 months. ASSESSMENT: BI-RADS 1 - Negative RECOMMENDATION: 1. Patient should be managed based on the clinical impression. 2. Otherwise, routine annual screening mammography. Results were provided to the patient at time of visit by the technologist. This patient's information was entered into a reminder system with a target due date for their next mammogram. Electronically signed by: Juan Carlos Alex MD 01/22/2025 11:35 AM EDT Dictated By: Juan Carlos Alex MD Signed By: <Electronically signed by Juan Carlos Alex MD in OV> 01/22/25 1135 DD/ 1106 TD/TT: 01/22/25 1120 Gold Assayer: Procedure Note Donotuseinterpreter, Image - 01/22/2025 [facility] [address] [place] [address] Ultrasound Report Signed Patient: Aurora Ferrara [facility]#: [id number] : 1980Acct:[id number] Age/Sex: 44 / FADM Date: 01/22/25 Loc: HO.MAMMO Attending Dr: Stan Marks CNM Ordering Physician: STAN MARKS CNM Date of Service: 01/22/25 Procedure(s): US breast RT limited Accession Number(s): [id number] cc: STAN MARKS CNM EXAMINATIONS: 1. MM DIAGNOSTIC DIGITAL BREAST TOMOSYNTHESIS, BILATERAL 2. Targeted ultrasound of the right breast CLINICAL INFORMATION: Right breast lump in the upper outer quadrant. COMPARISON: Comparison made to multiple prior, most recent , and most remote . TECHNIQUE: Digital breast tomosynthesis is performed in both the craniocaudal and mediolateral oblique views along with computer-aided detection (CAD). Synthesized 2D images are generated from the tomosynthesis. FINDINGS: BREAST COMPOSITION: There are scattered areas of fibroglandular density (ACR BI-RADS breast composition Category b). RIGHT BREAST: No significant masses, suspicious calcifications or other abnormalities are seen. In particular, no suspicious findings adjacent to the skin BB marker placed in the upper outer quadrant. Targeted ultrasound of the right breast was performed at the location of the palpable concern as indicated by the patient. The survey centered at approximately 9 to 10 o'clock position 6 to 12 cm from the nipple did not reveal suspicious sonographic findings. LEFT BREAST: No significant masses, suspicious calcifications or other abnormalities are seen. US/US breast RT limited IMPRESSION: RIGHT BREAST: Negative, no evidence of malignancy. In particular, no sonographic or mammographic findings to account for the patient's palpable concern. Clinical follow-up is recommended. Otherwise, normal interval follow-up mammogram is recommended in 12 months. LEFT BREAST: , no mammographic evidence of malignancy. Normal interval follow-up is recommended in 12 months. ASSESSMENT: BI-RADS 1 - Negative RECOMMENDATION: 1. Patient should be managed based on the clinical impression. 2. Otherwise, routine annual screening mammography. Results were provided to the patient at time of visit by the technologist. This patient's information was entered into a reminder system with a target due date for their next mammogram. Electronically signed by: Juan Carlos Alex MD 01/22/2025 11:35 AM EDT Dictated By: Juan Carlos Alex MD Signed By: <Electronically signed by Juan Carlos Alex MD in OV> 01/22/25 1135 DD/ 1106 TD/TT: 01/22/25 1120 Gold Assayer: us Stan Marks CNM IMG US PROCEDURES Final R esult * BI Mammogram Diagnostic Tomosynthesis Bilateral (01/22/2025 10:45 AM EDT) Anatomical Region Laterality Modality Breast Bilateral Mammography 01/22/2025 10:4 5 AM EDT Narrative 01/22/2025 11:38 AM EDT [facility] [address] [place] [address] Mammography Report Signed Patient: Aurora Ferrara MR#: [id number] : 1980 Acct:[id number] Age/Sex: 44 / F ADM Date: 01/22/25 Loc: HO.MAMMO Attending Dr: Stan Marks CNM Ordering Physician: STAN MARKS CNM Results: 1 Negative Date of Service: 01/22/25 Follow Up: 1 Year From [facility] Mammogram Procedure(s): MM tomosynthesis diagnostic BI Accession Number(s): [id number] cc: STAN MARKS CNM EXAMINATIONS: 1. MM DIAGNOSTIC DIGITAL BREAST TOMOSYNTHESIS, BILATERAL 2. Targeted ultrasound of the right breast CLINICAL INFORMATION: Right breast lump in the upper outer quadrant. COMPARISON: Comparison made to multiple prior, most recent , and most remote . TECHNIQUE: Digital breast tomosynthesis is performed in both the craniocaudal and mediolateral oblique views along with computer-aided detection (CAD). Synthesized 2D images are generated from the tomosynthesis. FINDINGS: BREAST COMPOSITION: There are scattered areas of fibroglandular density (ACR BI-RADS breast composition Category b). RIGHT BREAST: No significant masses, suspicious calcifications or other abnormalities are seen. In particular, no suspicious findings adjacent to the skin BB marker placed in the upper outer quadrant. Targeted ultrasound of the right breast was performed at the location of the palpable concern as indicated by the patient. The survey centered at approximately 9 to 10 o'clock position 6 to 12 cm from the nipple did not reveal suspicious sonographic findings. LEFT BREAST: No significant masses, suspicious calcifications or other abnormalities are seen. MM/MM tomosynthesis diagnostic BI IMPRESSION: RIGHT BREAST: Negative, no evidence of malignancy. In particular, no sonographic or mammographic findings to account for the patient's palpable concern. Clinical follow-up is recommended. Otherwise, normal interval follow-up mammogram is recommended in 12 months. LEFT BREAST: , no mammographic evidence of malignancy. Normal interval follow-up is recommended in 12 months. ASSESSMENT: BI-RADS 1 - Negative RECOMMENDATION: 1. Patient should be managed based on the clinical impression. 2. Otherwise, routine annual screening mammography. Results were provided to the patient at time of visit by the technologist. This patient's information was entered into a reminder system with a target due date for their next mammogram. Electronically signed by: Juan Carlos Alex MD 01/22/2025 11:35 AM EDT Dictated By: Juan Carlos Alex MD Signed By: <Electronically signed by Juan Carlos Alex MD in OV> 01/22/25 1135 DD/ 1045 TD/TT: 01/22/25 1102 Gold Assayer: Procedure Note Donotumerinterpreter, Image - 01/22/2025 [facility] [address] [place] [address] Mammography Report Signed Patient: Aurora Ferrara [facility]#: [id number] : 1980Acct:[id number] Age/Sex: 44 / FADM Date: 01/22/25 Loc: HO.MAMMO Attending Dr: Stan Marks CNM Ordering Physician: STAN MARKSesults: 1 Negative Date of Service: 01/22/25Follow Up: 1 Year From Orig inal Mammogram Procedure(s): MM tomosynthesis diagnostic BI Accession Number(s): [id number] cc: STAN MARKS CNM EXAMINATIONS: 1. MM DIAGNOSTIC DIGITAL BREAST TOMOSYNTHESIS, BILATERAL 2. Targeted ultrasound of the right breast CLINICAL INFORMATION: Right breast lump in the upper outer quadrant. COMPARISON: Comparison made to multiple prior, most recent , and most remote . TECHNIQUE: Digital breast tomosynthesis is performed in both the craniocaudal and mediolateral oblique views along with computer-aided detection (CAD). Synthesized 2D images are generated from the tomosynthesis. FINDINGS: BREAST COMPOSITION: There are scattered areas of fibroglandular density (ACR BI-RADS breast composition Category b). RIGHT BREAST: No significant masses, suspicious calcifications or other abnormalities are seen. In particular, no suspicious findings adjacent to the skin BB marker placed in the upper outer quadrant. Targeted ultrasound of the right breast was performed at the location of the palpable concern as indicated by the patient. The survey centered at approximately 9 to 10 o'clock position 6 to 12 cm from the nipple did not reveal suspicious sonographic findings. LEFT BREAST: No significant masses, suspicious calcifications or other abnormalities are seen. MM/MM tomosynthesis diagnostic BI IMPRESSION: RIGHT BREAST: Negative, no evidence of malignancy. In particular, no sonographic or mammographic findings to account for the patient's palpable concern. Clinical follow-up is recommended. Otherwise, normal interval follow-up mammogram is recommended in 12 months. LEFT BREAST: , no mammographic evidence of malignancy. Normal interval follow-up is recommended in 12 months. ASSESSMENT: BI-RADS 1 - Negative RECOMMENDATION: 1. Patient should be managed based on the clinical impression. 2. Otherwise, routine annual screening mammography. Results were provided to the patient at time of visit by the technologist. This patient's information was entered into a reminder system with a target due date for their next mammogram. Electronically signed by: Juan Carlos Alex MD 01/22/2025 11:35 AM EDT RP Workstation: [facility] Dictated By: Juan Carlos Alex MD Signed By: <Electronically signed by Juan Carlos Alex MD in OV> 01/22/25 1135 DD/ 1045 TD/TT: 01/22/25 1102 Gold Assayer: Stan Marks [facility] IMG BI PROCEDURES Final R esult * (ABNORMAL) Bacterial Vaginosis Panel (01/18/2025 2:59 PM EDT) Only the most recent of2 resultswithin the time period is included. TRICHOMONAS VAGINALIS DETECTION BY PCR NOT DETECTED Not Detect [facility] BACTERIAL VAGINOSIS DETECTION BY PCR POSITIVE(A) Negative [facility] Comment:The BV organism targ ets of the Xpert Xpress MVP test can becommensal in women; Xpert Xpress MVP positive results forbacterial vaginosis should be considered in conjunction withother clinical and patient information to determine thedisease status. Organisms that are not detected by the XpertXpress MVP test have also been reported to be associatedwith BV and aerobic vaginitis.The Xpert Xpress MVP test performance has not been evaluatedin patients under the age of 14. TIFFANY GROUP DETECTION BY PCR DETECTED(A) Not Detect [facility] Tiffany glab krusei PCR NOT DETECTED Not Detect [facility] Swab Vaginal structure / Unknown 01/18/2025 2:59 PM EDT 01/18/2025 4:40 PM EDT Rebekah Lloyd [facility] MICROBIOLOGY - GENERA L ORDERABLES Final Result [facility] [address] [place] [phone] [phone] * (ABNORMAL) POCT Urinalysis (01/18/2025 2:56 PM EDT) Color, UA Dark Mariela Clarity, UA Turbid Glucose, UA Negative Bilirubin, UA Many Comment:small Ketones, UA Positive Comment:trace Spec Grav, UA 1.020 Blood, UA Negative Negative, None Detected pH, UA 7.0 Protein, UA Many Comment:30mgdL Urobilinogen, UA >=8.0 Leukocytes, UA Trace Negative, Rare, Trace Nitrite, UA Negative Negative, None Detected Appearance, UA dark yellow QC Media Lot # [id number] Lot# Expiration Date [id number] Urine 01/18/2025 2:56 PM EDT Valente Valenzuela MD POINT OF CARE TEST ENTER/EDIT OR DERABLES Final Result * (ABNORMAL) Urinalysis, Complete, with Reflex to Culture (01/18/2025 2:50 PM EDT) Color Urine Dark Yellow [facility] Appearance Urine Clear [facility] PH 7.0 5.0 - 9.0 [facility] Glucose Urine UA Negative Negative mg/dL [facility] Urine Blood Negative Negative [facility] Specific [place] - Urine 1.025 1.005 - 1.025 [facility] Urine Protein Trace Neg-Trace mg/dL [facility] Urine Ketones Trace Negative mg/dL [facility] Nitrite Urine Negative Negative [facility] Leukocyte Esterase Urine Small (1+)(A) Negative [facility] RBC Urine 0-2 0 - 2 /HPF [facility] Urine WBC 0-5 0 - 5 /HPF [facility] Urine Squamous Epithelial Cell 3-5 0 - 2 /HPF [facility] Urine Bacteria None Seen None Seen [facility] Hyaline Casts, Urine 0-2 0 - 2 /LPF [facility] Urine 01/18/2025 2:50 PM EDT 01/18/2025 4:40 PM EDT Narrative [facility] - 01/18/2025 5:02 PM EDT Urine, Clean Catch us Valente Valenzuela MD LAB URINE ORDERABLES Final Resul t Performing Organization Address [facility] Co de Phone Number [facility] [address] [place] [phone] * Culture, Urine, Routine (01/18/2025 12:00 AM EDT) Urine Urine specimen obtained by clean catch procedure / Unknown 01/18/2025 01/18/2025 Comment:UA Narrative [facility] - 01/20/2025 10:19 AM EDT Urine Culture No growth. Specimen Source: Urine clean catch us Valente Valenzuela MD LAB MICROBIOLOGY - GENERAL ORDER SERGIO Final Result Performing Organization Address [facility] Co de Phone Number [facility] [address] [place] [phone] * US Pelvis Transvaginal (01/15/2025 8:55 PM EDT) Anatomical Region Laterality Modality Pelvis Ultrasound 01/15/2025 8:55 PM EDT Narrative 01/15/2025 8:56 PM EDT [address] [address] Ultrasound Report Signed Patient: Aurora Ferrara MR#: [id number] : 1980 Acct:[id number] Age/Sex: 44 / F ADM Date: 01/15/25 Loc: HO.US Attending Dr: Stan Marks CNM Ordering Physician: STAN MARKS CNM Date of Service: 01/15/25 Procedure(s): US pelvic and transvaginal Accession Number(s): [id number] cc: STAN MARKS CNM CLINICAL HISTORY: AUB US pelvis transabdominal and transvaginal with Doppler Comparison: None provided Findings: Transabdominal scanning performed for overall anatomy. Transvaginal scanning performed for additional detail. Anteverted uterus is 9.3 cm length. 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 9 mm right mid/superior uterine fibroid anteriorly. 11 mm left anterior uterine fibroid. Endometrium 6 mm thickness. Right ovary 2.5 x 1.7 x 1.4 cm. Left ovary 3.6 x 2.1 x 2.5 cm. Normal color Doppler with arterial/venous spectral tracing of both ovaries. No free fluid. IMPRESSION: 1. No acute process. This document has been electronically signed by: Kristi Summers MD on 01/15/2025 20:55:35 Dictated By: Kristi Summers MD Signed By: <Electronically signed by Kristi Summers MD in OV> 01/15/252055 DD/ 54 TD/TT: 01/15/252054 Gold Assayer: Procedure Note Donotuseinterpreter, Image - 01/15/2025 [place] [id number] Ultrasound Report Signed Patient: Aurora Ferrara [facility]#: [id number] : 1980Acct:[id number] Age/Sex: 44 / FADM Date: 01/15/25 Loc: HO.US Attending Dr: Stan Marks CNM Ordering Physician: STAN MARKS CNM Date of Service: 01/15/25 Procedure(s): US pelvic and transvaginal Accession Number(s): [id number] cc: STAN MARKS CNM CLINICAL HISTORY: AUB US pelvis transabdominal and transvaginal with Doppler Comparison: None provided Findings: Transabdominal scanning performed for overall anatomy. Transvaginal scanning performed for additional detail. Anteverted uterus is 9.3 cm length. 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 9 mm right mid/superior uterine fibroid anteriorly. 11 mm left anterior uterine fibroid. Endometrium 6 mm thickness. Right ovary 2.5 x 1.7 x 1.4 cm. Left ovary 3.6 x 2.1 x 2.5 cm. Normal color Doppler with arterial/venous spectral tracing of both ovaries. No free fluid. IMPRESSION: 1. No acute process. This document has been electronically signed by: Kristi Summers MD on 01/15/2025 20:55:35 Dictated By: Kristi Summers MD Signed By: <Electronically signed by Kristi Summers MD in OV> 01/15/252055 DD/ 54 TD/TT: 01/15/252054 Gold Assayer: Stan Marks CNM IMG US PROCEDURES Edited Result - Final * POCT , urine manually resulted (01/05/2025 2:33 PM EDT) Preg Test, Ur Negative Negative, Indeterminate, None Detected, Invalid, Specimen unsatisfactory for evaluation, Weakly Positive, 2+ QC Media Lot # [id number] Lot# Expiration Date [id number] Urine 01/05/2025 2:33 PM EDT Stan Marks CNM POINT OF CARE TEST ENTER/ EDIT ORDERABLES Final Result * HPV DNA, Low/High Risk (01/05/2025 2:20 PM EDT) HPV High Risk Negative Negative [facility] HPV Genotype 16 Negative Negative [facility] HPV Genotype 18 Negative Negative [facility] Comment:HPV testing performe d at [facility] (CLIA#[id number]), [address] [place] [address].Testing for HPV was performed using the [employer]system. The presence of HPV in the female genital tract isassociated with a number of diseases, including cervicalcarcinoma. The HPV DNA high risk pool tests for HPV 31, 33,35, 39, 45, 51, 52, 56, 58, 59, 66 and 68. The testing forHPV 16 and 18 genotypes has also been performed. A positiveresult indicates detection of nucleic acid sequences fromone or more subtypes, whereas a negative result indicatessuch sequences were not detected. 01/05/2025 2:20 PM EDT 01/06/2025 7:35 AM EDT Stna Marks CNM LAB BLOOD ORDERABLES Delphine dillard Result [facility] [address] [place] [phone] * Pap Smear (01/05/2025 2:20 PM EDT) Swab Cervix uteri structure / Unknown 01/05/2025 2:20 PM EDT 01/06/2025 7:35 AM EDT Narrative [facility] - 01/19/2025 8:59 AM EDT ----- ------- Name: Aurora Ferrara Age/Sex: 44/F : 1980 Unit#: [id number] Attend Dr: STAN MARKS CNM Re01/05/25 Status: DEP REF Location: HO.LNP Disch: ----- ------- SPEC : [id number] RECD: 01/06/25 STATUS: NELI JOHN NUM: [id number] ROYCE: 01/05/[address] [facility] [address]: STAN MARKS CNM ENTERED: 01/06/25 SP TYPE: Pap Smr OT DR: ORDERED: Pap Smear Interpretation Satisfactory for evaluation (following reprocessing with acid wash procedure). Negative for intraepithelial lesion or malignancy. Abundant blood. HPV High Risk: Negative HPV Genotyping 16: Negative HPV Genotyping 18: Negative Clinical Information LMP: Unknown date Previous PAP test: 2019, Unknown findings Other history: Routine cervical smear Material Received ThinPrep-Cervical PAP Disclaimer As of April 01, 2024, the technical services to include automated prescreening performed by the ThinPrep Imaging System, PAP screening and HPV testing will be performed at [facility] (CLIA #[id number]), [address] [place] [address]. Testing for HPV was performed using the [employer] system. The presence of HPV in the female genital tract is associated with a number of diseases, including cervical carcinoma. The HPV DNA high risk pool tests for HPV 31, 33, 35, 39, 45, 51, 52, 56, 58, 59, 66 and 68. The testing for HPV 16 and 18 genotypes has also been performed. A positive result indicates detection of nucleic acid sequences from one or more subtypes, whereas a negative result indicates such sequences were not detected. All professional services are performed by [facility] ([address] [place] [address]; ; CLIA #[id number]). The PAP Test is a screening procedure with the inherent possibility of both false negative and false positive results. Results should be interpreted in the context of historic and current clinical findings. Reliability of the PAP Test is enhanced by performing the test on a regular repetitive basis. CONTINUED ON NEXT PAGE ----- ------- Name: Aurora Ferrara Age/Sex: 44/F : 1980 Unit#: [id number] Attend Dr: STAN MARKS CNM Re01/05/25 Status: DEP REF Location: [facility] Disch: ----- ------- SPEC : [id number] RECD: 01/06/25 STATUS: NELI ALVARO NUM: [id number] ROYCE: 01/05/25-[address] [facility] [address]: STAN MARKS CNM ENTERED: 01/06/25 SP TYPE: Pap Kamini HURST DR: ORDERED: Pap Smear ----- ------- Signed (signature on file) KYRA Edwards (ASC) 01/19/25 0859 ----- ------- END OF REPORT Stan Marks CNM LAB CYTOLOGY ORDERABLES F inal Result Performing Organization Address [facility] Co de Phone Number [facility] [address] [place], [place] [phone] * STI testing add on (NG, CT, Trich) (01/05/2025 12:00 AM EDT) Trichomonas (NAAT) NOT DETECTED NOT DETECTED [facility] Comment:The analytical perfo rmance characteristics of thisassay have been determined by [employer]. Themodifications have not been cleared or approved bythe FDA. This assay has been validated pursuant to theIA regulations and is used for clinical purposes.For additional information, please refer tohttp://education.[facility]/faq/Trichomonastma(This link is being provided for information/educational purposes only.)THIS TEST WAS PERFORMED AT:[facility] [place] [phone] DELGADO MD CTNG Ref Lab NOT DETECTED NOT DETECTED [facility] NG Ref Lab NOT DETECTED NOT DETECTED [facility] ThinPrep vial Cervix uteri structure / Unknown 01/05/2025 01/06/2025 7:35 AM EDT Stan Marks [facility] CYTOLOGY ORDERABLES F inal Result Performing Organization Address [facility] Co de Phone Number [facility] [address] [place] [address] [phone] * Lipid Panel, Standard (11/13/2024 9:53 AM EDT) Triglycerides 46 <150 mg/dL [facility] Comment:Desirable Triglyceri de: less than 150 mg/dLBorderline High Triglyceride 150-199 mg/dLHigh Triglyceride: 200-499 mg/dLVery High Triglyceride: greater than or equal to 5OO mg/dL Cholesterol 172 <200 mg/dL [facility] Comment:Desirable Cholestero l: less than 200 mg/dLBorderline High Cholesterol: 200-239 mg/dLHigh Cholesterol: greater than 239 mg/dL LDL Cholesterol Calculated 94 <100 mg/dL [facility] Comment:Desirable LDL: less than 100 mg/dLNear Optimal/Above Optimal LDL: 110- 129 mg/dLBorderline High LDL: 130-159 mg/dLHigh LDL: 160-189 mg/dLVery High LDL: greater than or equal to 190 mg/dL HDL Cholesterol 69 >40 mg/dL [facility] Comment:Desirable HDL: great er than 40 mg/dL Note: This HDL assay may give artificially low results in patients with liver disease. 11/13/2024 9:53 AM EDT 11/13/2024 9:53 AM EDT us Generic External Data Provider LAB BLOOD ORDERAB LES Final Result Performing Organization Address [facility] Co de Phone Number [facility] [address] [place] [phone] * Hepatitis C Antibody with Reflex to HCV, RNA, Quantitative, Real-Time PCR (04/09/2024 12:15 PM EDT) Hepatitis C Antibody Nonreactive Nonreactive [facility] Comment:Antibodies to HCV no t detected; does not exclude early acuteHCV infection. Blood Venous blood specimen / Unknown 04/09/2024 12:15 PM EDT 04/09/2024 1:17 PM EDT us Magaly Maldonado MD LAB BLOOD ORDERABLES Final Result Performing Organization Address City/[facility]/ZIP Co de Phone Number [facility] [address] [place] [phone] * HIV-1/2 Antigen and Antibodies, Fourth Generation, with Reflexes (04/09/2024 12:15 PM EDT) HIV AB/AG Nonreactive Nonreactive [facility] Comment:HIV-1 p24 Ag and/or HIV-1/HIV-2 Ab not detected.A test result that is nonreactive does not exclude thepossibility of exposure to or infection with HIV-1 and/orHIV-2. Nonreactive results in this assay for individualswith prior exposure to HIV-1 and/or HIV-2 may be due toantigen and antibody levels that are below the limit ofdetection of this assay.The [employer] HIV Ag/Ab Combo assay result andsupplemental assay results should be interpreted inconjunction with the patient's clinical presentation,history and other laboratory results. If the results areinconsistent with clinical evidence, additional testing issuggested to confirm the result. Blood Venous blood specimen / Unknown 04/09/2024 12:15 PM EDT 04/09/2024 1:17 PM EDT Magaly Maldonado MD LAB BLOOD ORDERABLES Final Result [facility] [address] [place] [phone] from Last 3 Months or Most Recently Relevant to Health Maintenance Insurance [facility] [address] C3 Care Teams Adobe Block Maker Relationship Specialty Start Date End Date Magaly Mcrae MD [address] [place] [phone] PCP - General Family Medicine 02/19/18
--- OUTSIDE RECORDS SUMMARY | 2025-03-03 15:41 | XMS_ITS | Clinical Summary ---
Author Organization [address] [facility] Address [address] [place] [address] Phone Care Team Providers Care Tour Operator Name Role Phone Thu Tam MD Primary Care Provider + [phone] Allergies No known active allergies Medications DICLOFENAC [...] Encounters Date Type Department Care Team Description 02/04/2025 Lab Requisition [facility] - Main Lab [address] [facility] [place] [phone] Bettina San[place] MD Abnormal uterine and vaginal bleeding, unspecified 01/29/2025 10:30 AM EDT Consult Orthopedic Surgery [facility] [address] [facility] [address] [place] [phone] Dar Taylor MD Knee pain, left (Primary Dx); Old tear of medial meniscus of left knee, unspecified tear type 01/14/2025 10:30 AM EDT Office Visit Orthopedic Surgery [facility] [address] [facility] [address] [place] [phone] Niki Ramsey MD Derangement of unspecified medial [...] - Inhaled Oxygen Concentration - - Weight 74.4 kg (164 lb) 01/29/2025 10:28 AM EDT Height 167.6 cm (5' 6 ) 01/29/2025 10:28 AM EDT Body Mass Index 26.47 01/29/2025 10:28 AM EDT Plan of Treatment Health Maintenance Due Date Last Done Comments Hepatitis B Vaccines (1 of 3 - 19+ 3-dose series) 11/29/1999 Social Influencers of Health Screening 05/13/2022 Breast Cancer Screening 09/28/2023 09/27/2021 DTaP,Tdap,and Td Vaccines (3 - Td or Tdap) 02/02/2024 02/01/2014, 02/26/2008 Depression Screening 06/10/2024 COVID-19 Vaccine (2023-2 5 season) 2025 Influenza Vaccine (#1) 2025 9, 04/03/2013, 04/11/2012 Cervical Cancer Screening: P ap Smear 01/06/2028 01/05/2025 Cholesterol Screening (Lipid Panel) 11/13/2029 11/13/2024, 04/09/2024 RSV Immunization Adult Patients (1 - 1-dose 75+ series) 11/29/2055 HIV [...] Procedure Name Priority Date/Time Associated Diagnosis Comments TESTOSTERONE FREE, BIOAVAILABLE AND TOTAL Routine 02/04/2025 11:15 AM EDT Hot flashes ESTRADIOL Routine 02/04/2025 11:15 AM EDT Hot flashes SEX HORMONE BINDING GLOBULIN Routine 02/04/2025 11:15 AM EDT Hot flashes PROGESTERONE Routine 02/04/2025 11:15 AM EDT Hot flashes FOLLICLE STIMULATING HORMONE Routine 02/04/2025 11:15 AM EDT Hot flashes LUTEINIZING HORMONE Routine 02/04/2025 1 1:15 AM EDT Hot flashes TISSUE EXAM Routine 02/04/2025 Abnormal uterine and vaginal bleeding, unspecified XR KNEE 3 VIEWS LEFT Routine 01/29/2025 10:17 AM EDT Knee pain, left from Last 3 Months Results * Testosterone free, bioavailable and total (02/04/2025 11:15 AM EDT) Testosterone 17 9 - 48 ng/dL LAB CHEMISTRY METHOD 02/04/2025 5:46 PM EDT [facility] Testosterone, Free 0.1 0.0 - 0.5 ng/dL LAB CHEMISTRY METHOD 02/04/2025 5:46 PM T [facility] Testosterone, Bioavailable 2 1 - 9 ng/dL LAB CHEMISTRY METHOD 02/04/2025 5:46 PM T [facility] Sex Hormone Binding 148.1 See Comment nmol/L LAB CHEMISTRY METHOD 02/04/2025 5:46 PM EDT [facility] Comment: FEMALES: pre-menopausal 10.8 - >180 post-menopausal 23.2 - 159.1 MALES: 21-49 years 14.6 - 94.6 50-89 years 21.6 - 113.1 CHILDREN: No established reference range Over the counter supplements containing high doses of biotin may interfere with this assay. If interference is suspected, patients should be retested after refraining from biotin supplements for 72 hours. Albumin 4.3 3.2 - 5.0 g/dL LAB CHEMISTRY METHOD 02/04/2025 5:46 PM T [facility] Blood Venous blood specimen / Unknown Venipuncture / Unknown 02/04/2025 11:15 AM EDT 02/04/2025 12:47 PM EDT us Bettina [place] MD LAB BLOOD ORDERABLES Fin al Result Performing Organization Address City/[facility] [address] [facility]/ZIP Co de Phone Number [facility] [address] [place] [address], [place] [phone] * Sex hormone binding globulin (02/04/2025 11:15 AM EDT) Pathologist [facility] Sex Hormone Binding 148.1 See Comment nmol/L LAB CHEMISTRY METHOD 02/04/2025 5:46 PM EDT [facility] Comment: FEMALES: pre-menopausal 10.8 - >180 post-menopausal 23.2 - 159.1 MALES: 21-49 years 14.6 - 94.6 50-89 years 21.6 - 113.1 CHILDREN: No established reference range Over the counter supplements containing high doses of biotin may interfere with this assay. If interference is suspected, patients should be retested after refraining from biotin supplements for 72 hours. Blood Venous blood specimen / Unknown Venipuncture / Unknown 02/04/2025 11:15 AM EDT 02/04/2025 12:47 PM EDT us Bettina [place] MD LAB BLOOD ORDERABLES Fin al Result Performing Organization Address [facility] Co de Phone Number [facility] [address] [place] [address], [place] [phone] * Progesterone (02/04/2025 11:15 AM EDT) Pathologist [facility] Progesterone <0.2 ng/mL LAB CHEMISTRY METHOD 02/04/2025 2:58 PM EDT [facility] Comment: PROGESTERONE REFERENCE RANGES (NG/ML) FEMALES NORMALLY MENSTRUATING: FOLLICULAR PHASE 0.2 - 1.7 MIDCYCLE PEAK 2.3 - 242 LUTEAL PHASE 8.8 - 21.6 POSTMENOPAUSAL <0.2 - 0.9 : FIRST TRIMESTER 11.4 - 41.0 SECOND TRIMESTER 13.5 - 156 THIRD TRIMESTER 51.4 - >200 This assay should not be used in patients taking DHEA supplements as part of IVF treatment. A metabolite (DHEA-S) of this supplement has been shown to cross-react with the progesterone assay and cause falsely elevated results. Blood Venous blood specimen / Unknown Venipuncture / Unknown 02/04/2025 11:15 AM EDT 02/04/2025 12:47 PM EDT us Bettina [place] MD LAB BLOOD ORDERABLES Fin al Result Performing Organization Address [facility]/ZIP Co de Phone Number [facility] [address] [place] [address], [place] [phone] * Estradiol (02/04/2025 11:15 AM EDT) Estradiol <11 See below pcg/mL LAB CHEMISTRY METHOD 02/04/2025 1:45 PM EDT [facility] Comment: ESTRADIOL REFERENCE RANGES (PG/ML) FEMALES NORMALLY MENSTRUATING: FOLLICULAR PHASE 21.4 - 164.8 MIDCYCLE PEAK 49.9 - 367.2 LUTEAL PHASE 40.2 - 259.0 POSTMENOPAUSAL: ON HRT <11 - 462.1 UNTREATED <11 - 58.3 Fulvestrant has been shown to cross-react with the estradiol assay and cause falsely elevated results. For patients being treated with fulvestrant, Estradiol ultrasensitive should be ordered. This test is performed by LC/MS and is not expected to show cross reactivity to fulvestrant. Blood Venous blood specimen / Unknown Venipuncture / Unknown 02/04/2025 11:15 AM EDT 02/04/2025 12:47 PM EDT us Bettina [place] MD LAB BLOOD ORDERABLES Fin al Result Performing Organization Address [facility]/ZIP Co de Phone Number [facility] [address] [place] [address], * Luteinizing hormone (02/04/2025 11:15 AM EDT) Luteinizing Hormone 14.8 See Comment mIU/mL LAB CHEMISTRY METHOD 02/04/2025 1:45 PM EDT [facility] Blood Venous blood specimen / Unknown Venipuncture / Unknown 02/04/2025 11:15 AM EDT 02/04/2025 12:47 PM EDT Narrative [facility] - 02/04/2025 1:45 PM EDT LH REFERENCE RANGES (MIU/ML) FEMALES NORMALLY MENSTRUATING: FOLLICULAR PHASE 1.9 - 12.8 MIDCYCLE PEAK 22.8 - 76.1 LUTEAL PHASE 0.6 - 13.5 POSTMENOPAUSAL: ON HRT 1.1 - 52.4 UNTREATED 8.6 - 61.8 Bettina [place] MD LAB BLOOD ORDERABLES Fin al Result Performing Organization Address [facility] Co de Phone Number [facility] [address] [place] [address], * Follicle stimulating hormone (02/04/2025 11:15 AM EDT) Follicle Stimulating Hormone 51.1 See Comment mIU/mL LAB CHEMISTRY METHOD 02/04/2025 1:45 PM EDT [facility] Comment: FSH REFERENCE RANGES (MIU/ML) FEMALES NORMALLY MENSTRUATING: FOLLICULAR PHASE 2.3 - 12.6 MIDCYCLE PEAK 5.2 - 17.5 LUTEAL PHASE 1.7 - 9.5 POSTMENOPAUSAL: ON HRT 5.9 - 72.8 UNTREATED 12.7 - 132.2 Blood Venous blood specimen / Unknown Venipuncture / Unknown 02/04/2025 11:15 AM EDT 02/04/2025 12:47 PM EDT Bettina [place] MD LAB BLOOD ORDERABLES Fin al Result [facility] [address] [place] [address], [place] [phone] * Tissue Exam (02/04/2025) Final Diagnosis Endometrial biopsy: Benign endocervical glandular epithelium and inflamed squamous epithelium No endometrium identified 02/05/2025 1:27 PM EDT [facility] Clinical Information Abnormal uterine bleeding 02/05/2025 1:27 PM EDT [facility] Gross Description A. Endometrium, biopsy: Labeled with the patient's name and information. Received in formalin is a 1.1 x 0.8 x 0.2 cm aggregate of irregular pink-red soft tissue fragments admixed with mucoid substance which is submitted in toto in a mesh bag in one cassette, multiple pieces, x 2. LENARD 02/05/2025 1:27 PM EDT [facility] Disclaimer Unless otherwise specified, all tissue is 10% NB formalin fixed and paraffin embedded. 02/05/2025 1:27 PM EDT [facility] Tissue Endometrial structure / Unknown 02/04/2025 02/04/2025 12:36 PM EDT Bettina [place] MD LAB PATHOLOGY ORDERABLES Final Result [facility] [address] [place] [address], * XR Knee 3 Views Left (01/29/2025 10:17 AM EDT) Anatomical Region Laterality Modality Lower Extremities, Knee Left Computed Radiography Narrative 01/29/2025 10:49 AM EDT X-rays January 29, 2025. Bilateral knee PA weightbearing views. Lateral view of the left knee. [place] view of the left knee. No acute osseous abnormalities. No significant malalignment. Overall good preservation of the articular cartilage. Dar Taylor MD IMG XR PROCEDURES Final Result from Last 3 Months Insurance MEDICAID - [place] Care Teams Tour Operator Relationship Specialty Start Date End Date Thu Tam MD [address] [place] [phone] PCP - General Internal Medicine 03/13/24
[2025-03-29 12:26] VITALS: BMI 26.1
--- NOTE | 2025-04-01 12:18 | HO.ANESPROP2 ---
Documented by User: Romina Thomas NP 04/01/25 12:21 HPI - Anesthesia Eval Consult details Narrative: 44yo F for Panniculectomy s/p gastric sleeve 2020 PMF Active Problems Active Problems: All Active Problems Postgastrectomy malabsorption (Acute) Excess skin (Acute) Overweight (Acute) Perimenopause (Acute) History of endometrial ablation (Acute) Hot flashes (Acute) H/O parathyroidectomy (Acute) Amenorrhea, unspecified (Acute) BMI 32.0-32.9,adult (Acute) BMI 31.0-31.9,adult (Acute) BMI 34.0-34.9,adult (Acute) Congenital intra-abdominal adhesions (Acute) Knee pain (Acute) Back pain (Acute) GERD (gastroesophageal reflux disease) (Acute) S/P laparoscopic sleeve gastrectomy (Acute) Status post repair of paraesophageal diaphragmatic hernia (Acute) Diaphragmatic hernia (Acute) Morbid obesity with BMI of 40.0-44.9, adult (Acute) Pre-op evaluation (Acute) Hx of migraines (Acute) Anxiety and depression (Acute) Gastritis (Acute) Vitamin D deficiency (Acute) Vitamin A deficiency (Acute) Obesity (Acute) BMI 38.0-38.9,adult (Acute) BMI 37.0-37.9, adult (Acute) BMI 36.0-36.9,adult (Acute) BMI over 35 (Acute) Past Medical History Medical History Postgastrectomy malabsorption GERD (gastroesophageal reflux disease) Depression Hx of bipolar disorder Panic attack Family History Family History Mother Heart disease Arthritis Father Liver disease Herniated disc Brother No problems noted. Brother No problems noted. Brother No problems noted. Sister Diabetes Sister Migraine Sister HIV disease Sister No problems noted. Sister No problems noted. Daughter Asthma Son No problems noted. Paternal Aunt Breast cancer Surgical History Surgical History History of sleeve gastrectomy History of endometrial ablation H/O parathyroidectomy History of esophagogastroduodenoscopy (EGD) History of tonsillectomy and adenoidectomy Hx of tubal ligation Social History Social History Household Members: Family Housing: Apartment Are you a primary rn patient care to a significant other at home: No Do you presently have visiting nurse or other home services: No Alcohol intake: never Patient Tobacco Use Status: Former Tobacco user Tobacco use type: Cigarette Smoked in Last 30 Days: No Use of substances other than those prescribed or required for medical reasons: Yes Substance Use Type: Marijuana Substance Use Type Other:: last used marijuana 03/15/2025 Have you been hit, kicked, punched, or otherwise hurt by someone within the past year? If so, by whom?: No Are you DNR?: No Advance Directives: No Advance Directives Information Provided: Yes Advance Directives on File: No Patient : No FDLMP: 2019 : No Poor oral hygiene: No service: No Current occupational status: unemployed Meds Allergies Allergy/AdvReac Type Severity Reaction Status Date / Time No Known Allergies Allergy Verified 03/24/25 22:42 Home Medications ?Medication ?Instructions ?Recorded ?Confirmed ?Last Taken ?Type fluticasone propionate 50 1 spray intranasal BID 04/11/22 03/29/25 Unknown History mcg/actuation nasal spray,suspension hydroxyzine HCl 25 mg tablet 25 mg PO BID PRN attention deficit 12/24/22 03/24/25 Unknown History hyperactivity disorder sumatriptan succinate 25 mg tablet 25 mg PO PRN Migraine Headache 12/24/22 03/24/25 Unknown History bupropion HCl 200 mg tablet,12 hr 200 mg PO QAM 03/29/25 03/29/25 Unknown History sustained-release trazodone 50 mg tablet 25 - 50 mg PO BEDTIME PRN insomnia 03/29/25 03/29/25 Unknown History Exam Height,Weight and Vital Signs: Height 5 ft 4.5 in Weight 70.125 kg Pertinent Lab Results Pertinent Lab Results: Laboratory Tests 11/13/24 09:53 WBC 3.2 L Hgb 13.3 Hct 36.5 L Plt Count 252 Sodium 142 Potassium 3.6 Chloride 110 H Carbon Dioxide 27 BUN 13 Creatinine 0.57 Narrative Narrative: EKG 2023 Vent. Rate : 069 BPM Atrial Rate : 069 BPM P-R Int : 152 ms QRS Dur : 086 ms QT Int : 378 ms P-R-T Axes : 009 038 010 degrees QTc Int : 405 ms Normal sinus rhythm Normal ECG When compared with ECG of 13-JUL-2020 13:45, No significant change was found Assessment and Plan Assessment Anesthesia Assessment: Chart Reviewed Documented by User: Noni Menard MD 04/06/25 08:36 [facility] Past Medical History Medical History Postgastrectomy malabsorption GERD (gastroesophageal reflux disease) Depression Hx of bipolar disorder Panic attack Family History Family History Mother Heart disease Arthritis Father Liver disease Herniated disc Brother No problems noted. Brother No problems noted. Brother No problems noted. Sister Diabetes Sister Migraine Sister HIV disease Sister No problems noted. Sister No problems noted. Daughter Asthma Son No problems noted. Paternal Aunt Breast cancer Surgical History Surgical History History of sleeve gastrectomy History of endometrial ablation H/O parathyroidectomy History of esophagogastroduodenoscopy (EGD) History of tonsillectomy and adenoidectomy Hx of tubal ligation History of Problems with Anesthesia: No Social History Social History Household Members: Family Housing: Apartment Are you a primary rn patient care to a significant other at home: No Do you presently have visiting nurse or other home services: No Alcohol intake: never Patient Tobacco Use Status: Former Tobacco user Tobacco use type: Cigarette Smoked in Last 30 Days: No Use of substances other than those prescribed or required for medical reasons: Yes Substance Use Type: Marijuana Substance Use Type Other:: last used marijuana 03/15/2025 Have you been hit, kicked, punched, or otherwise hurt by someone within the past year? If so, by whom?: No Are you DNR?: No Advance Directives: No Advance Directives Information Provided: Yes Advance Directives on File: No Patient : No FDLMP: 2019 : No Poor oral hygiene: No service: No Current occupational status: unemployed Meds Allergies Allergy/AdvReac Type Severity Reaction Status Date / Time No Known Allergies Allergy Verified 03/24/25 22:42 Home Medications ?Medication ?Instructions ?Recorded ?Confirmed ?Last Taken ?Type fluticasone propionate 50 1 spray intranasal BID 04/11/22 03/29/25 Unknown History mcg/actuation nasal spray,suspension hydroxyzine HCl 25 mg tablet 25 mg PO BID PRN attention deficit 12/24/22 03/24/25 Unknown History hyperactivity disorder sumatriptan succinate 25 mg tablet 25 mg PO PRN Migraine Headache 12/24/22 03/24/25 Unknown History bupropion HCl 200 mg tablet,12 hr 200 mg PO QAM 03/29/25 03/29/25 Unknown History sustained-release trazodone 50 mg tablet 25 - 50 mg PO BEDTIME PRN insomnia 03/29/25 03/29/25 Unknown History Exam Airway Mallampati Class: III (veneers) TM Dist: >3cm Neck ROM: Full Loose/Missing/Broken Teeth: No Heart: RRR Lungs: CTA Assessment and Plan Assessment Anesthesia Assessment: Anesthesia Plan Discussed Final Anesthetic Review History of Problems with Anesthesia: No NPO: Yes ASA Class: II Final Preanesthetic Review: Meds/Allgs Chart Reviewed, Consent Obtained/Reviewed and Anes Risks/Benef Reviewed Patient Risk: Low Procedure Risk: Low Anesthetic Plan Anesthetic Plan: GA Disposition: Standard PACU
[2025-04-02 13:45] LABS: INTERNATIONAL NORM RATIO 1.2 (0.9-1.1); Prothrombin Time 14.0 SEC (10.9-12.4)
[2025-04-02 13:47] LABS: Partial Thromboplastin Time 33.6 SEC (26.7-34.1)
[2025-04-02 14:08] LABS: Hematocrit 35.2 % (37.0-47.0); Hemoglobin 12.2 g/dl (12.0-16.0); Imm Gran Abs Auto 0.01 X10*3/uL (0.00-0.03); Imm Gran Pct Auto 0.2 % (0.0-0.4); Lymphocytes Absolute Auto 1.2 X10*3/uL (1.2-4.9); MANUAL DIFF FLAG NO; Mean Corpuscular HGB Conc 34.7 g/dl (31.0-35.0); Mean Corpuscular Hemoglobin 30.6 pg (27.0-33.0); Mean Corpuscular Volume 88.2 fL (80.0-98.0); NRBC Abs Auto 0.000 X10*3/uL (0.0-0.012); NRBC Pct Auto 0.0 /100WBC (0.0-0.2); Platelet Count 252 X10*3/uL (160-400); Red Blood Count 3.99 X10*6/uL (4.20-5.50); White Blood Count 5.1 X10*3/uL (4.8-10.8)
[2025-04-02 14:37] LABS: Alanine Aminotransferase 24 U/L (0-31); Albumin Level 4.5 g/dL (3.5-5.0); Alkaline Phosphatase 72 U/L (39-117); Anion Gap 12 (12-20); Aspartate Amino Transferase 25 U/L (5-31); Blood Urea Nitrogen 17 mg/dL (9-16); Calcium 9.2 mg/dL (8.4-10.2); Carbon Dioxide 27 mmol/L (22-29); Chloride 106 mmol/L (96-108); Creatinine Clr Calc Pharmacy 135.2; Estimated Glomerular Filt Rate > 60; Potassium 3.5 mmol/L (3.3-5.1); Sodium 141 mmol/L (135-145); Total Protein 6.9 g/dL (6.5-8.0)
[2025-04-06] VITALS (14 sets, daily range): BP systolic 93–107; BP diastolic 47–66; PULSE 51–98; RESP 10–18; TEMP 36.2–37; O2SAT 98–100; BMI 26.0
[2025-04-06] MEDS: Lactated Ringers 1,000 ML 100 ML IVCONT (08:35)
[2025-04-06] MEDS: Aprepitant 32 MG/4.4 ML VIAL IVPUSH (08:35)
--- NOTE | 2025-04-06 09:10 | MHC.SHP ---
Pre-Procedural Eval Section A - 24 Hr Update-Section A only Date of Service: 04/06/25 The patient is an INPATIENT: No The patient has been examined within 24 hours of the surgical procedure. The History & Physical has been completed within 30 days and I have reviewed it.: Yes Section B - Complete if H&P > 30 days Chief Complaint: Excessive and redundant skin and subcutaneous tiss Relevant Family History (Specify if Yes): No Relevant Social History: None Present Medications: None Medical History: No relevant PMH History of Previous Operations: Relevant previous surgery/procedure and date(s) (Laparoscopic sleeve gastrectomy) Allergies: Allergies Allergy/AdvReac Type Severity Reaction Status Date / Time No Known Allergies Allergy Verified 03/24/25 22:42 Review of Systems Sugical H&P ROS: Negative: Constitution, Cardiovascular, Respiratory, Neurological, Psychiatric, Hem-Onc, Allergic/Immunologic, Gastrointestinal, Genitourinary, Musculoskeletal, Integumentary, Endocrine and Eyes/Ears/Nose/Throat Exam Surgical H&P Exam: Normal: HEENT, Normal: Heart, Normal: Lungs, Normal: Extremities, Normal: Abdomen, Normal: Skin and Normal: Neurological Plan Diagnosis/Plan: Unchanged I have reviewed the history and physical and performed a pertinent physical examination on my patient. No changes have occurred unless specified. Time Spent With Patient Time: Total time managing care of this patient today ____ minutes.
--- NOTE | 2025-04-06 09:11 | P.BOP_ITS ---
Brief Operative Note Date of Service: 04/06/25 Pre-op diagnosis: Excess skin Post-op diagnosis: same Procedure: PROCEDURE: Panniculectomy with umbilical transposition and bilateral subcutaneous fat flaps INDICATION: This a 44 year old female who underwent laparoscopic sleeve gastrectomy on 12/22/2020. She had an excellent result achieving a BMI of 26.2 kg/m2 with a total weight loss of 84.8lbs, or 35.4% of her TBWL. As a result, she has developed panniculitis which has not resolved despite continuous use of clotrimazole ointment as well as skin irritation. On exam she has extreme skin laxity due to massive weight loss, with the abdominal pannus completely hanging 4cm below the pubis. Panniculectomy was recommended. We discussed the two options for the panniculectomy of using a combined vertical and horizontal incisions or just a horizontal (bikini) incision. It was my recommendation to do only horizontal incision based on her body habitus and skin laxity. The patient agreed with this. Risks and complications were discussed with the patient including bleeding, infection, umbilical loss, flap necrosis, asymmetry, dehiscence, seroma, VTE. The patient understood the risks and was in agreement to proceed with surgery. PROCEDURE: The incisions were appropriately marked at the preop area with the patient standing and laying down. After induction of general anesthesia a Montes De Oca catheter and pneumatic compression devices were placed. The patient was prepped and draped in the usual sterile manner and the incisions were marked again and confirmed. The skin was infiltrated with lidocaine and epinephrine. The #10 blade scalpel w as used for the large incisions and the #15 blade scalpel for the umbilicus. Cautery was used to divide the subcutaneous tissues until the fascia was identified. Then I used the cautery to separate the pannus from the fascia. The inferior incision was made initially and I mobilized the flap for a several centimeters cephalad to the umbilicus. The umbilicus was incised circumferentially and detached from the surrounding tissues all the way to the fascia while its stalk was preserved. With the patient in reflex position I confirmed that the skin flaps were appropriate and would allow for the tissues to come together with reasonable tension. At that point a horizontal incision was made 4 cm above the umbilicus. #10 blade was used for the skin, cautery for the dermis and for the remaining tissues. A subcutaneous fat flap was raised from the upper skin flap in order to fill the space under the skin and support the closure of the two flaps. In addition the inferior flap was mobilized caudally for a few centimeters to create a space for the subcutaneous fat flap as well as relieve tension from the closure. A circumferential incision was made at the area where the umbilicus would be re-implanted. The umbilicus was appropriately oriented and was delivered through the defect and was secured in place with a Tara. No bleeding was noted anywhere. One SHARYN drain was placed from the left corner of the horizontal incision across the wound and was secured in place with a silk suture. The subcutaneous fat flap was secured under the inferior flap with several interrupted 3.0 Monocryl sutures. The two flaps were brought together and were attached at the midline of the horizontal incision with a #3.0 Monocryl suture. At that point the umbilicus was properly oriented and was re-approximated to the skin with 8 interrupted 3.0 Monocryl sutures. In a similar fashion the skin flaps were re-approximated with multiple 3.0 Monocryl sutures. The skin was closed in all incisions and umbilicus with 4.0 Monocryl sutures. Steri-strips, xeroform gauzes and gauzes were used to cover the incisions. An abdominal binder was also placed. The was awaken and was transferred to the recover room in a stable condition. I was present and performed the entire procedure. Ms. Brasher was the physician assistant. Gil Freeman MD, PhD, FACS Surgeon: Kashmir Freeman MD Surgeon: Kashmir Freeman MD Anesthesia: GETA and local Was an College Sports Coach used for this Procedure?: No College Sports Coach: Rose Brasher Estimated blood loss (mL): 10 IV fluids (mL): 1,300 Urine output (mL): 0 (No Montes De Oca to record output) Pathology: other (Abdominal pannus) Condition: stable Disposition: PACU
--- NOTE | 2025-04-06 09:17 | P.F2F_ITS ---
Service Date Service Date: 04/06/25 Encounter Date of encounter: 04/06/25 Reasons for Services Signs and symptoms assessed: s/p panniculectomy with drain placement Reason for [facility] [facility] wound care Homebound: Leaving the home is medically contraindicated at this time without the asist of a device and/or another person due th the listed conditions above and below. Reason homebound: unable to drive Certification: Based on the above findings, I certify that this patient is confined to the home and needs intermittent [facility] care, physical therapy and/or speech therapy, or continues to need occupational therapy. The patient is under my care, and I have initiated the establishment of the plan of care. The patient will be followed by a physician who will periodically review the plan of care. Time Spent With Patient Time: Total time managing care of this patient today __30__ minutes.
== END 2025-04-06 15:46 | disposition home or self-care (01) ==
PROVIDERS: PCP Advanced Practice Midwife; Visit Provider Surgery
PROC: 0JB80ZZ Excision of Abdomen Subcutaneous Tissue and Fascia, Open Approach (ICD-10-PCS; CPT 15830; principal; 2025-04-06 10:30)
DX: L98.7 Excessive and redundant skin and subcutaneous tissue (principal); K91.2 Postsurgical malabsorption, not elsewhere classified; M79.3 Panniculitis, unspecified; E65 Localized adiposity; K43.0 Incisional hernia with obstruction, without gangrene; K21.9 Gastro-esophageal reflux disease without esophagitis; R11.0 Nausea; K59.00 Constipation, unspecified; F32.A Depression, unspecified; F41.0 Panic disorder [episodic paroxysmal anxiety]; Z79.51 Long term (current) use of inhaled steroids; Z79.899 Other long term (current) drug therapy; Z98.84 Bariatric surgery status; Z90.3 Acquired absence of stomach [part of]; Z98.890 Other specified postprocedural states; Z87.891 Personal history of nicotine dependence; Z56.0 Unemployment, unspecified
CPT/HCPCS: 49592; 15830; 15847; 36415; 80053; 85025; 85610; 85730; 86850; 86900; 86901; 88302; 88304; C9145; J0131; J0690; J1100; J2003; J2004; J2250; J2405; J2704; J3010; J3374

== ENCOUNTER → 2025-04-06 07:43 | Outpatient (BNV) | payer MEDICAID, SELFPAY | PROVIDERS: PCP Advanced Practice Midwife; Visit Provider Physician Assistant Surgical | DX: M79.3 Panniculitis, unspecified (principal); L98.7 Excessive and redundant skin and subcutaneous tissue; K43.0 Incisional hernia with obstruction, without gangrene | CPT/HCPCS: 15830; 49592; G0180 ==

== ENCOUNTER 2025-04-14 15:56 | Outpatient (AMB) | payer MEDICAID, SELFPAY ==
--- OUTSIDE RECORDS SUMMARY | 2025-04-13 15:15 | XMS_ITS | Encounter Summary ---
Author Organization [employer] Address [address] [place] [address] [address] [address] Care Team Providers Care Wood Borer Name Role Phone Magaly Mcrae MD Primary Care Provide r Reason for Referral * Consultation (Routine) - Closed Specialty Diagnoses / Procedures Referred By Contac t Referred To Contact Dermatology Diagnoses Irritant contact dermatitis, unspecified trigger Magaly Mcrae MD [address] [place] [id number] Phone: tel: fax: Referral ID Status Reason Start Date Expiration Date V isits Requested Visits Authorized [id number] Closed Specialty Services Required 04/13/2025 04/13/2026 1 1 Scheduling Instructions Please refer to [facility] [place] previous referral will for the time of her visit thank you Encounter Details Date Type Department Care Team (Late st Contact Info) Description 04/13/2025 3:15 PM EST Office Visit [facility] [address] [place] [address] [phone] Magaly Mcrae MD [address] [place] [phone] Encounter for preventive care (Primary Dx); Dietary counseling; Exercise counseling; Post-surgical hypoparathyroidism; Irritant contact dermatitis, unspecified trigger Social History Tobacco Use Types Packs/Day Years Used Date Smoking Tobacco: Never Passive Smoke Exposure: Never Smokeless Tobacco: Never Alcohol Use Standard Drinks/Week Comments Never 0 (1 standard drink = 0.6 oz pur e alcohol) Depression Answer Date Recorded Patient Health Questionnaire-9 Score 12 04/13/2025 Patient Health Questionnaire-9 Score 12 04/13/2025 Last PHQ-9: Questionnaire Data Not on file 1 06/13/2024 Housing Stability Answer Date Recorded What is [...] Answer Date Recorded Patient Health Questionnaire-2 Score 3 04/13/2025 Internet Access Answer Date Recorded Internet Access Q1 Yes 03/24/2024 Internet Access Q2 Not on file 03/24/2024 Comments No Sex and Gender Information Value Date Recorded Sex Assigned at Female 04/09/2022 10:18 AM EDT Legal Sex Female 10:18 AM EDT Gender Identity Female 04/09/2022 10:18 AM EDT Sexual Orientation Straight 04/09/2022 10 :18 AM EDT documented as of this encounter Last Filed Vital Signs Vital Sign Reading Time Taken Comments Blood Pressure 102/68 04/13/2025 3:03 PM EST Pulse 63 04/13/2025 3:03 PM EST Temperature 34.4 C (94 F) 04/13/2025 3:03 PM EST Respiratory Rate 14 04/13/2025 3:03 PM EST Oxygen Saturation 94% 04/13/2025 3:03 PM EST Inhaled Oxygen Concentration - - Weight 68.4 kg (150 lb 12.8 oz) 04/13/2025 3:03 PM EST Height 162.6 cm (5' 4 ) 04/13/2025 3:03 PM EST Body Mass Index 25.88 04/13/2025 3:03 PM EST documented in this encounter Functional Status * Over the past 2 weeks, how often have you been bothered by any of the following problems? Question Answer Date of Assessment Author Patient Health Questionnaire-2 Score 3 09/2024 3:36 PM EST Silvana Parra MA * Little interest or pleasure in doing things Answer Date of Assessment Author Several days 04/13/2025 3:36 PM EST Lucian Parra ra, [place] * Feeling down, depressed, or hopeless Answer Date of Assessment Author More than half the days 04/13/2025 3:36 PM EST Silvana Miner MA * Trouble falling or staying asleep, or sleeping too much Answer Date of Assessment Author More than half the days 04/13/2025 3:36 PM EST Silvana Miner MA * Feeling tired or having little energy Answer Date of Assessment Author Nearly every day 04/13/2025 3:36 PM EST Marky Parra MA * Poor appetite or overeating Answer Date of Assessment Author More than half the days 04/13/2025 3:36 PM EST Silvana Miner MA * Feeling bad about yourself - or that you are a failure or have let yourself or your family down Answer Date of Assessment Author Not at all 04/13/2025 3:36 PM Lucian Evans ra, [place] * Trouble concentrating on things, such as reading the newspaper or watching television Answer Date of Assessment Author More than half the days 04/13/2025 3:36 PM EST Silvana Miner MA * Moving or speaking so slowly that other people could have noticed? Or the opposite - being so fidgety or restless that you have been moving around a lot more than usual. Answer Date of Assessment Author Not at all 04/13/2025 3:36 PM Lucian Evans ra, [place] * Thoughts that you would be better off or hurting yourself in some way Answer Date of Assessment Author Not at all 04/13/2025 3:36 PM Lucian Evans ra, [place] * Patient Health Questionnaire-9 Score Answer Date of Assessment Author 12 04/13/2025 3:36 PM Lucian Evans ra, [place] * How difficult have these problems made it for you to do your work, take care of things at home, or get along with other people? Answer Date of Assessment Author Extremely difficult 04/13/2025 3:36 PM Silvana Evans MA * Over the last 2 weeks, how often have you been bothered by any of the following problems? Question Answer Date of Assessment Author Feeling nervous, anxious, or on edge 3 09/2024 3:36 PM Silvana Evans MA Not being able to stop or co ntrol worrying 2 04/13/2025 3:36 PM Silvana Evans MA Worrying too much about diff erent things 3 04/13/2025 3:36 PM Silvana Evans MA Trouble relaxing 3 04/13/2025 3:36 PM Silvana Salvador MA Being so restless that it is hard to sit still 3 04/13/2025 3:36 PM Silvana Evans MA Becoming easily annoyed or irritable 3 09/2024 3:36 PM Silvana Evans MA Feeling afraid as if somethi ng awful might happen 1 04/13/2025 3:36 PM Silvana Evans MA CHLOE-7 Total Score 18 04/13/2025 3:36 PM Silvana Evans MA documented as of this encounter Progress Notes * Magaly Maldonado MD - 04/13/2025 3:15 PM EST /SUBJECTIVE: Aurora Ferrara is a 44 y.o. year old female who presents for Physical . Occupation:disability Lives with:son an partner Social Hx: denies drinking EtOH, denies smoking cigarettes and denies recreational drug use. Diet:regular Exercise:sedentary Patient is currently on menopause Pap Smear:due on 01/05/2030 Mammogram up to date Hospitalizations/Surgeries: bariatric surgery, correction of excess skin, parathyroidectomy Eye Care:up to date Dental Care:up to date PMHx:on chart Immunizations: Reviewed declines today her flu vaccine Social History Social History Narrative Not on file Problem List[1] Allergic rhinitis Chronic pain of left knee Anxiety with depression Flushing Gastroesophageal reflux disease without esophagitis Irregular periods Hypercalcemia Migraine aura without headache Migraine without aura, not refractory Obesity Otalgia of right ear Post-surgical hypoparathyroidism Primary hyperparathyroidism (CMS/HCC) Uterine leiomyoma Vitamin D deficiency Decreased vision in both eyes Encounter for screening mammogram for malignant neoplasm of breast Encounter for preventive care Irritant contact dermatitis Dyslipidemia 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 Seasonal allergic rhinitis Eczema Family History[2] Review of Systems Constitutional: Negative. HENT: Negative. Respiratory: Negative. Cardiovascular: Negative. Skin: Positive for rash. OBJECTIVE: Vitals: 04/13/25 1503 BP: 102/68 BP Location: Left arm Patient Position: Sitting BP Cuff Size: Adult Pulse: 63 Resp: 14 Temp: 94 ??F (34.4 ??C) TempSrc: Temporal SpO2: 94% Weight: 150 lb 12.8 oz (68.4 kg) Height: 5' 4 (1.626 m) Physical Exam Constitutional: Appearance: Normal appearance. Cardiovascular: Rate and Rhythm: Normal rate and regular rhythm. Pulmonary: Effort: Pulmonary effort is normal. Breath sounds: Normal breath sounds. Abdominal: General: Abdomen is flat. Palpations: Abdomen is soft. Comments: Dressing and drain clean Neurological: Mental Status: She is alert. Follow Up: Follow up in about 6 months (around 10/11/2025) for chronic conditions . Medications Ordered Prior to Encounter[3] Problem List Items Addressed This Visit Post-surgical hypoparathyroidism Patient is stable c/w same interventions Irritant contact dermatitis Relevant Medications betamethasone valerate (Valisone) 0.1 % cream Other Relevant Orders Referral to Dermatology Encounter for preventive care - Primary Other Visit Diagnoses Dietary counseling Exercise counseling Dietary counseling: - Continue current protein intake as recommended by previous provider. Maintain dietary regimen including protein bars and portions of meat, chicken, and vegetables. Post-surgical hypoparathyroidism: - Hypoparathyroidism status post parathyroid gland removal, currently stable. - Monitor for symptoms. Follow-up with hematology referral placed for evaluation at the same location as previous appointments. Irritant contact dermatitis, unspecified trigger: - Contact dermatitis triggered by exposure to various substances, including shampoo and other household items. - Recommended use of Aquaphor ointment for skin protection and healing. Advised use of gloves when washing dishes or handling irritants. Referral placed to dermatology at [facility] for further evaluation. Dietary counseling: - Continue current protein intake as recommended by previous provider. Maintain dietary regimen including protein bars and portions of meat, chicken, and vegetables. Post-surgical hypoparathyroidism: - Hypoparathyroidism status post parathyroid gland removal, currently stable. - Monitor for symptoms. Follow-up with hematology referral placed for evaluation at the same location as previous appointments. Irritant contact dermatitis, unspecified trigger: - Contact dermatitis triggered by exposure to various substances, including shampoo and other household items. - Recommended use of Aquaphor ointment for skin protection and healing. Advised use of gloves when washing dishes or handling irritants. Referral placed to dermatology at [facility] for further evaluation. This note was drafted using [employer] [address] ([employer]) technology. The patient/patient's guardian has been informed and has consented to the use of this technology: Yes [1] Patient Active Problem List Diagnosis Allergic rhinitis Chronic pain of left knee Anxiety with depression Flushing Gastroesophageal reflux disease without esophagitis Irregular periods Hypercalcemia Migraine aura without headache Migraine without aura, not refractory Obesity Otalgia of right ear Post-surgical hypoparathyroidism Primary hyperparathyroidism (CMS/HCC) Uterine leiomyoma Vitamin D deficiency Decreased vision in both eyes Encounter for screening mammogram for malignant neoplasm of breast Encounter for preventive care Irritant contact dermatitis Dyslipidemia 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 Seasonal allergic rhinitis Eczema [2] No family history on file. [3] Current Outpatient Medications on File Prior to Visit Medication Sig Dispense Refill acetaminophen (Tylenol Extra Strength) 500 MG tablet Take 1 tablet (500 mg) by mouth every 6 (six) hours if needed for mild pain, fever, headaches or moderate pain. 30 tablet 0 amitriptyline (Elavil) 25 MG tablet TOME DEVEN TABLETA POR VIA ORAL AL ACOSTARSE 30 tablet 0 buPROPion SR (Wellbutrin SR) 150 MG 12 hr tablet TAKE 1 TABLET (150 MG) BY MOUTH ONCE DAILY. DO NOTCRUSH, CHEW, OR SPLIT. (Patient taking differently: Take 200 mg by mouth Once daily. Do not crush, chew, or split.) 30 tablet 2 fluticasone (Flonase) 50 MCG/ACT nasal spray Administer 1-2 sprays into each nostril Once per day. Shake gently. Before first use, prime pump. After use, clean tip and replace cap. 16 g 2 hydrOXYzine HCl (Atarax) 25 MG tablet Take 1 tablet (25 mg) by mouth if needed in the morning, at noon, and at bedtime for itching. 90 tablet 3 SUMAtriptan (Imitrex) 25 MG tablet TAKE 1 TABLET BY MOUTH 1 TIME IF NEEDED FOR MIGRAINE. MAY REPEATDOSE ONCE IN 2 HOURS IF NO RELIEF. DO NOT EXCEED 2 DOSES IN 24 HOURS. 9 tablet 1 venlafaxine XR (Effexor XR) 37.5 MG 24 hr capsule Take 2 capsules (75 mg) by mouth Once per day. Donot crush or chew. 60 capsule 1 [DISCONTINUED] triamcinolone (Kenalog) 0.1 % cream Apply topically if needed in the morning and at bedtime (pain and swelling). 30 g 0 No current facility-administered medications on file prior to visit. documented in this encounter Miscellaneous Notes * Assessment & Plan Note - Magaly Maldonado MD - 04/13/2025 4:05 PM EST Associated Problem(s): Post-surgical hypoparathyroidism Patient is stable c/w same interventions documented in this encounter Plan of Treatment Upcoming Encounters Date Type Department Care Team (Late st Contact Info) Description 06/23/2025 3:30 PM EST Office Visit [facility] [address] [place] [address] Magaly Mcrae MD [address] [place] [address] Scheduled Referrals Name Type Priority Associated Diagnoses Orde r Schedule Referral to Dermatology Outpatient Referral Routine Irritant contact dermatitis, unspecified trigger Expected: 04/13/2025 (Approximate), Expires: 04/13/2026 documented as of this encounter Visit Diagnoses Diagnosis Encounter for preventive care- Primary Dietary counseling Dietary surveillance and counseling Exercise counseling Post-surgical hypoparathyroidism Irritant contact dermatitis, unspecified trigger documented in this encounter Additional Health Concerns Assessment Noted Time PHQ-9 Depression Total Score: 12 025 3:36 PM EST documented as of this encounter Care Teams Wood Borer Relationship Specialty Start Date End Date Magaly Mcrae MD [address] [place] [address] PCP - General Family Medicine 02/19/18 documented as of this encounter
[2025-04-14 16:33] VITALS: BP 100/54; PULSE 65; TEMP 36.4; O2SAT 97
--- NOTE | 2025-04-14 16:33 | MHC.OFFVISWM ---
VS Expanded 04/14/25 16:33 BP 100/54 L Blood Pressure Location Lt brachial Blood Pressure Position Sitting Pulse 65 Temp 97.5 F Pulse Oximetry 97 Oxygen Delivery Method Room Air Intake Visit Reasons: OV Panniculectomy 04/06/25 Allergies No Known Allergies Allergy (Verified 03/24/25 22:42) Medication List - Last Reconciled 04/15/25 by EJ Leon bupropion HCl SR 200 mg PO QAM cholecalciferol (vitamin D3) (Vitamin D3) 25 mcg PO DAILY docusate sodium (Colace) 100 mg PO DAILY fluticasone propionate 50 mcg/actuation 1 spray intranasal BID hydroxyzine HCl 25 mg PO BID PRN [id number] K 45 mg iron- 800 mcg-120 mcg (Bariatric Multivitamins) 1 cap PO .daily in evening ondansetron 4 mg PO Q12H sumatriptan succinate 25 mg PO QID PRN trazodone 25 - 50 mg PO BEDTIME PRN HPI Comments Details: Pt is 1w s/p panniculectomy 04/06/2025. Drain output started around 50cc per day and now 20-30cc per day. Bulb has been holding suction. Pt initially had an occlusive dressing with Tegaderm placed in OR, but today presents with typical dressing of Xeroform. Following meal plan. [facility] Medical History Postgastrectomy malabsorption GERD (gastroesophageal reflux disease) Depression Hx of bipolar disorder Panic attack Surgical History History of sleeve gastrectomy History of endometrial ablation H/O parathyroidectomy History of esophagogastroduodenoscopy (EGD) History of tonsillectomy and adenoidectomy Hx of tubal ligation Family History Mother Heart disease Arthritis Father Liver disease Herniated disc Brother No problems noted. Brother No problems noted. Brother No problems noted. Sister Diabetes Sister Migraine Sister HIV disease Sister No problems noted. Sister No problems noted. Daughter Asthma Son No problems noted. Paternal Aunt Breast cancer Social History Household Members: Family Housing: Apartment Are you a primary day care provider to a significant other at home: No Do you presently have visiting nurse or other home services: No 75 years or older and lives alone: No Alcohol intake: never Patient Tobacco Use Status: Former Tobacco user Tobacco use type: Cigarette Substance Use Type: Marijuana service: No Current occupational status: unemployed Female Reproductive History Menstrual Age of Menarche: 13 Physical Exam Vital Signs: Last Vital Signs Temp 97.5 F 04/14/25 16:33 Pulse 65 04/14/25 16:33 BP 100/54 L 04/14/25 16:33 Pulse Ox 97 04/14/25 16:33 Oxygen Delivery Method Room Air 04/14/25 16:33 Const General: cooperative, comfortable and no acute distress Orientation/consciousness: patient oriented x3 GI Other: soft, nontender, nondistended, panniculectomy incision c/d/i, drain output SS Neuro General: patient oriented x3 Assessment & Plan Assessment & Plan (1) S/P panniculectomy: Code(s): Z98.890 - Other specified postprocedural states Category: Medical (2) S/P laparoscopic sleeve gastrectomy: Code(s): Z98.84 - Bariatric surgery status Category: Medical Plan Continue high protein diet. ABX keflex 500 BID x 2 weeks, extended as needed?(at least until drain comes out plus 1 week).? Drain out after consistently 20 mL or less daily.? Abdominal binder at all times except for care x 1 month?MINIMUM. If there are concerns longer.? No driving?until drain out.? No walking outside or exercise for 6 weeks minimum. Walking in the house ok. Assistance getting up for 4 weeks minimum.?No lifting greater than?10 pounds x 2 months and no abdominal exercises x 3 months.
--- OUTSIDE RECORDS SUMMARY | 2025-04-14 18:47 | XMS_ITS | Clinical Summary ---
Author Organization [employer] Address [address] [place] [address] Care Team Providers Care Runner On Name Role Phone Magaly Mcrae MD Primary Care Provide r Allergies No known active allergies Medications * This document contains information received from the source organization and may not represent a complete record from that organization. acetaminophen (Tylenol Extra Strength) 500 MG tabletIndicatio ns:Viral URI Take 1 tablet (500 mg) by mouth every 6 (six) hours if needed for mild pain, fever, headaches or moderate pain. 30 tablet 07/23/19 23 Active hydrOXYzine HCl (Atarax) 25 MG tabletIndicatio ns:Anxiety with depression Take 1 tablet (25 mg) by mouth if needed in the morning, at noon, and at bedtime for itching. 90 tablet 3 12/05/19 23 Active buPROPion SR (Wellbutrin SR) 150 MG 12 hr tabletIndicatio ns:Depressive disorder TAKE 1 TABLET (150 MG) BY MOUTH ONCE DAILY. DO NOT CRUSH, CHEW, OR SPLIT. 30 tablet 2 01/05/20 23 Active Additional Information Patient taking differently: 200 mgOral Once Daily, Do not crush, chew, or split., Reported on 09/21/2024 amitriptyline (Elavil) 25 MG tabletIndicatio ns:Migraine aura without headache,Anxiet y with depression TOME DEVEN TABLETA POR VIA ORAL AL ACOSTARSE 30 tablet 04/12/20 23 Active venlafaxine XR (Effexor XR) 37.5 MG 24 hr capsuleIndicati ons: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 Take 2 capsules (75 mg) by mouth Once per day. Do not crush or chew. 60 capsule 1 10/24/19 25 026 Active fluticasone (Flonase) 50 MCG/ACT nasal sprayIndication s:Seasonal allergic rhinitis, unspecified trigger Administer 1-2 sprays into each nostril Once per day. Shake gently. Before first use, prime pump. After use, clean tip and replace cap. 16 g 2 10/24/19 25 026 Active SUMAtriptan (Imitrex) 25 MG tabletIndicatio ns:Migraine aura without headache TAKE 1 TABLET BY MOUTH 1 TIME IF NEEDED FOR MIGRAINE. MAY REPEAT DOSE ONCE IN 2 HOURS IF NO RELIEF. DO NOT EXCEED 2 DOSES IN 24 HOURS. 9 tablet 1 11/21/19 25 Active betamethasone valerate (Valisone) 0.1 % creamIndication s:Irritant contact dermatitis, unspecified trigger Apply topically if needed in the morning and at bedtime (dryness). 45 g 2 04/13/20 25 Active triamcinolone (Kenalog) 0.1 % creamIndication s:Irritant contact dermatitis due to detergent Apply topically if needed in the morning and at bedtime (pain and swelling). 30 g 04/29/20 24 025 Discontinued Active Problems Problem Noted Date Diagnosed Date [...] for her allergic rhinitis Irritant contact dermatitis 04/29/2024 Assessment & Plan (04/29/2024 3:13 PM EST): [...] Plan (02/07/2024 1:00 PM EDT): Refer to [facility]. Chronic pain of left knee 10/24/2022 Assessment [...] Vitamin D deficiency 10/11/2017 Post-surgical hypoparathyroidism 06/07/2015 Assessment & Plan (04/13/2025 4:05 PM EST): Patient is stable c/w same interventions Primary hyperparathyroidism 05/14/2014 Obesity 02/01/2014 Gastroesophageal reflux [...] seek help PLAN: 1. Follow up with [facility]: Not recommended for follow-up 2. Patient goal is to obtain her meds and become stable. 3. Behavioral Recommendations a. Ind. Therapy b. Med. Management c. Coping skills provided. Assessment & Plan (10/25/2022 4:25 PM EDT): Counseling done BN referral I will start her again on Wellbutrin 150mg daily Hypercalcemia 04/10/2012 Encounters Date Type Department Care Team Description 04/14/2025 Telephone [facility] [address] [place] [address] Magaly Mcrae MD Care Coordination (ICP Care Plan) 04/13/2025 3:15 PM EST Office Visit [facility] [address] [place] [phone] Magaly Mcrae MD Encounter for preventive care (Primary Dx); Dietary counseling; Exercise counseling; Post-surgical hypoparathyroidism; Irritant contact dermatitis, unspecified trigger 04/13/2025 Travel 04/12/2025 Telephone [facility] [address] [place] [address] Magaly Mcrae MD Chart Prep 04/06/2025 Orders Only GENERIC EXTERNAL DATA DEPARTMENT Provider, Generic External Data 04/06/2025 Patient Outreach [facility] [address] [place] [address] Magayl Mcrae MD Pre-visit Planning ([facility] unable to reach LVM) 04/05/[address] [address] Magaly Mcrae MD tammy recall 04/05/2025 Results Follow-Up [address] [address] Stan Marks CNM Prothrombin Time-INR, Partial Thromboplastin Time, Activated (APTT), CBC auto differential, Additional followed-up results: 2 04/02/2025 Orders Only [address] [address] Magaly Mcrae MD Eczema, unspecified type (Primary Dx) 04/02/[address] [address] Magaly Mcrae MD Referral 02/15/2025 Patient Outreach [address] [address] Magaly Mcrae MD Care Coordination ([facility] Efrain Torres [facility] f/u, program graduation) 01/28/2025 Patient Outreach [address] [address] Magaly Mcrae MD Care Management ([facility]- F/U call) 01/27/2025 Patient Outreach [address] [address] Magaly Mcrae MD Care Coordination ([facility] Efrain Torres [facility] f/u call) 01/25/2025 Orders Only [address] [address] Stan Marks CNM Mass of upper outer quadrant of right breast (Primary Dx) 01/20/2025 Orders Only [address] [address] Rebekah Lloyd, TORSTEN Bacterial vaginosis (Primary Dx) 01/20/2025 Results Follow-Up [address] [address] Rebekah Lloyd CNP Urinalysis, Complete, with Reflex to Culture, Bacterial Vaginosis Panel 01/18/2025 3:20 PM EDT Office Visit [facility] [address] [place] [address] Name, MD Valente Yeast infection (Primary Dx); Vaginal odor; Urinary tract infection without hematuria, site unspecified 01/18/2025 Orders Only [facility] [address] [place] [address] Name, MD Valente 01/18/2025 Travel from Last 3 Months Immunizations Immunization Administration [...] the past 12 months, has t he Ium, Cap That, oil or water [employer] threatened to shut off services in your [...] Mass Index 25.88 04/13/2025 3:03 PM EST Plan of Treatment Upcoming Encounters Date Type Department Care Team (Late st Contact Info) Description 06/23/2025 3:30 PM EST Office Visit [facility] [address] [place] [address] Magaly Mcrae MD [address] [place] [address] Health Maintenance Due Date Last Done Comments HPV Vaccines (1 - 3-dose series) 11/29/1995 Hepatitis B Vaccines (1 of 3 - 19+ 3-dose series) 11/29/1999 DTaP/Tdap/Td Vaccines (2 - Td or Tdap) 02/02/2024 02/01/2014, 02/26/2008 COVID-19 Vaccine ( - season) 2025 Influenza Vaccine (#1) 2025 9, 04/03/2013, 04/11/2012 SDOH Screening 09/21/2025 09/21/2024 Depression Monitoring 10/11/2025 04/13/2025, 025 Disability Screening 12/21/2025 12/21/2024 Family Planning (PISQ) 01/05/2026 01/05/2025 Mammogram 01/22/2026 01/22/2025, 01/08, 04/30/2024, Additional history exists Alcohol/Substance Use Screening 04/13/2026 04/13/2025 Tobacco Screening 04/13/2026 04/13/2025 Lipid Panel 11/13/2029 11/13/2024, 03/12, 08/31/2022 Cervical [...] Procedure Name Priority Date/Time Associated Diagnosis Comments GROSS AND MICROSCOPIC LEVEL 2 Routine 04/06/2025 11:22 AM EDT COMPREHENSIVE METABOLIC PANEL Routine 04/02/2025 1:27 PM EDT Eczema, unspecified type TYPE AND SCREEN Routine 04/02/2025 1:27 PM EDT Eczema, unspecified type CBC WITH AUTO DIFFERENTIAL Routine 04/02/2025 1:27 PM EDT Eczema, unspecified type APTT Routine 04/02/2025 1:27 PM EDT Eczema, unspecified type PROTHROMBIN TIME-INR Routine 04/02/2025 1:27 PM EDT Eczema, unspecified type BI US BREAST LIMITED RIGHT Urgent 01/22/2025 [...] 8:55 PM EDT Abnormal uterine bleeding (AUB) HPV DNA, LOW/HIGH RISK Routine 2:20 PM EDT PAP SMEAR Routine 01/05/2025 2:20 PM EDT Routine cervical smear LIPID PANEL, STANDARD Routine 11/13/2024 9:53 AM [...] Recently Relevant to Health Maintenance Results * Gross and Microscopic Level 2 (04/06/2025 11:22 AM EDT) 04/06/2025 11:2 2 AM EDT 04/06/2025 1:50 PM EDT [facility] - 04/09/2025 10:21 AM EDT ----- ------- Name: Aurora Ferrara Age/Sex: 44/F : 1980 Unit#: [id number] Attend Dr: Kashmir Freeman MD Re04/06/25 Status: [facility] Location: [facility] Disch: ----- ------- SPEC : [id number] RECD: 04/06/257616 STATUS: NELI JOHN NUM: [id number] ROYCE: 04/06/25 [facility] DR: Kashmir Freeman MD ENTERED: 04/06/25-1359 SP TYPE: Surgical OTHR DR: STAN MARKS [facility] ORDERED: Gross Micro L2, Gross Micro L3 Diagnosis A. Soft tissue, pannus, excision: Lobulated mature adipose tissue and unremarkable skin. B. Hernia sac, excision: Fragment of fibromembranous tissue with focal mesothelial lining consistent with hernia sac. Clinical History Excessive and redundant skin Microscopic Description Microscopic sections reviewed. Material Received A. Pannus B. Hernia sac Gross Description A. Received in formalin is a 940 g, 30.0 x 20.0 cm portion of white wrinkled skin to include varying thicknesses of attached subcutaneous fat, measuring up to 4.0 cm in thickness. There is a 2.5 x 1.7 cm cauterized defect and a definitive umbilicus is not identified. Sectioning reveals unremarkable fibrofatty subcutaneous soft tissue without discrete abnormality. Record Changer Assembler sections are submitted in cassettes A1 -3. B. Received in formalin is a 1.6 cm in greatest dimension portion of fibrofatty soft tissue, sectioned and entirely submitted in cassette B1. (DTL) IHC S/NG Disclaimer NOTE: Unless otherwise stated, all tissue is formalin-fixed and paraffin-embedded. Some or all of the immunohistochemical tests reported herein may have been developed and their performance characteristics determined by [facility]. They have not been cleared or approved by the U.S. Food and Drug Administration (FDA). However, the FDA has determined that such clearance or approval is not necessary. This laboratory is certified under the Clinical Laboratory Improvement Amendments of 1988 (CLIA) as qualified to perform high complexity clinical laboratory testing. CONTINUED ON NEXT PAGE ----- ------- Name: Aurora Ferrara Age/Sex: 44/F : 1980 Unit#: [id number] Attend Dr: Kashmir Freeman MD Re04/06/25 Status: [facility] Location: [facility] Disch: ----- ------- SPEC : [id number] RECD: 04/06/25 STATUS: NELI JOHN NUM: [id number] ROYCE: 04/06/25 [facility] DR: Kashmir Freeman MD ENTERED: 04/06/25 SP TYPE: Surgical OTHR DR: STAN MARKS CNM ORDERED: Gross Micro L2, Gross Micro L3 Copies To: Kashmir Freeman MD [facility] [address] [place] [address] STAN MARKS CNM [address] [address] ----- ------- Signed (signature on file) Katharina Duron MD 04/09/25 1021 ----- ------- END OF REPORT us Generic External Data Provider LAB CYTOLOGY HOLLY CHILD Final Result [facility] [address] [place], [place] [phone] * (ABNORMAL) CBC auto differential (04/02/2025 1:27 PM EDT) White Blood Count 5.1 4.8 - 10.8 X10*3/uL [facility] Red Blood Count 3.99(L) 4.20 - 5.50 X10*6/uL [facility] Hemoglobin 12.2 12.0 - 16.0 g/dl [facility] Hematocrit 35.2(L) 37.0 - 47.0 % [facility] Mean Corpuscular Volume 88.2 80.0 - 98.0 fL [facility] Mean Corpuscular Hemoglobin 30.6 27.0 - 33.0 pg [facility] Mean Corpuscular HGB Conc 34.7 31.0 - 35.0 g/dl [facility] Red Cell Distribution Width 11.8 11.0 - 16.0 % [facility] Platelet Count 252 160 - 400 X10*3/uL [facility] Mean Platelet Volume 9.6 9.4 - 12.3 fL [facility] Neutrophils Percent Auto 65.8 45 - 73 % [facility] Imm Gran Pct Auto 0.2 0.0 - 0.4 % [facility] Lymphocytes Percent Auto 23.1 20 - 40 % [facility] Monocytes Percent Auto 9.1 2 - 11 % [facility] Eosinophils Percent Auto 1.2 0 - 4 % [facility] Basophils Percent Auto 0.6 0 - 2 % [facility] NRBC Pct Auto 0.0 0.0 - 0.2 /100WBC [facility] Neutrophils Absolute Auto 3.3 2.0 - 8.3 x10*3/uL [facility] Imm Gran Abs Auto 0.01 0.00 - 0.03 X10*3/uL [facility] Lymphocytes Absolute Auto 1.2 1.2 - 4.9 X10*3/uL [facility] Monocytes Absolute Auto 0.5 0.1 - 1.2 X10*3/uL [facility] Eosinophils Absolute Auto 0.1 0.0 - 0.4 X10*3/uL [facility] Basophils Absolute Auto 0.0 0.0 - 0.2 X10*3/uL [facility] NRBC Abs Auto 0.000 0.0 - 0.012 X10*3/uL [facility] 04/02/2025 1:27 PM EDT 04/02/2025 2:14 PM EDT Generic External Data Provider LAB BLOOD ORDERAB LES Final Result Performing Organization Address [facility] Co de Phone Number [facility] [address] [place] [phone] * Partial Thromboplastin Time, Activated (APTT) (04/02/2025 1:27 PM EDT) Partial Thromboplastin Time 33.6 26.7 - 34.1 SEC [facility] 04/02/2025 1:27 PM EDT 04/02/2025 1:47 PM EDT Generic External Data Provider LAB BLOOD ORDERAB LES Final Result Performing Organization Address [facility] Co de Phone Number [facility] [address] [place] [phone] * (ABNORMAL) Prothrombin Time-INR (04/02/2025 1:27 PM EDT) Prothrombin Time 14.0(H) 10.9 - 12.4 SEC [facility] INTERNATIONAL NORM RATIO 1.2(H) 0.9 - 1.1 [facility] Comment:INTERNATIONAL NORMAL IZED RATIO (INR) REFERENCE RANGES Reference RangeFor patients not on anticoagulant therapy: 0.9 - 1.1INR ranges for oral anticoagulanttherapy:For prevention and treatment of venous thrombosis and pulmonary embolism: 2.0 - 3.0For acute myocardial infarction with aspirin therapy: 2.0 - 3.0For acute myocardial infarction without aspirin therapy: 3.0 - 4.0For patients with mechanical prosthetic heart valves: 2.5 - 3.5 04/02/2025 1:27 PM EDT 04/02/2025 1:47 PM EDT Generic External Data Provider LAB BLOOD ORDERAB LES Final Result Performing Organization Address [facility] de Phone Number [facility] [address] [place] [phone] * Type and screen (04/02/2025 1:27 PM EDT) Pathologist [facility] Blood Type ON [facility] Antibody Screen NEGATIVE [facility] 04/02/2025 1:27 PM EDT 04/02/2025 1:40 PM EDT Narrative [facility] - 04/02/2025 2:20 PM EDT WITNESSED BY [place].Spec expiration changed by JIMMY on 04/02/25Reason: ANANTH SSSNURSING:Call Blood Bank (ext. [phone]) to band patient on admission.Type and Screen in effect until 2300 on 04/06/25. Generic External Data Provider LAB BLOOD BANK TE ST ORDERABLES Final Result Performing Organization Address [facility] de Phone Number [facility] [address] [place] [phone] * (ABNORMAL) Comprehensive Metabolic Panel (04/02/2025 1:27 PM EDT) Pathologist [facility] Sodium 141 135 - 145 mmol/L [facility] Potassium 3.5 3.3 - 5.1 mmol/L [facility] Chloride 106 96 - 108 mmol/L [facility] Carbon Dioxide 27 22 - 29 mmol/L [facility] Anion Gap 12 12 - 20 [facility] Urea Nitrogen (BUN) 17(H) 9 - 16 mg/dL [facility] Creatinine, Serum 0.51 0.5 - 1.4 mg/dL [facility] Creatinine Clr Calc Pharmacy 135.2 [facility] Comment:Provided height and weight: 163.83 cm,70.125 kg.eGFR (calculated from the MDRD study equation) and eCrCl(calculated from the Cockcroft-Gault equation) are based ondifferent parameters and may not yield comparable results.If eCrCl result is absurd, please check patient'sheight/weight. Estimated Glomerular Filt Rate >60 [facility] Comment:Chronic Kidney Disea se: Estimated GFR < 60 mL/min/[id number] Kidney Disease: Estimated GFR < 15 mL/min/1.73m2 Glucose 78 60 - 115 mg/dL [facility] Calcium 9.2 8.4 - 10.2 mg/dL [facility] Bilirubin, Total 0.7 0.0 - 1.0 mg/dL [facility] Aspartate Amino Transferase 25 5 - 31 U/L [facility] Alanine Aminotransferase 24 0 - 31 U/L [facility] Total Protein 6.9 6.5 - 8.0 g/dL [facility] Albumin Level 4.5 3.5 - 5.0 g/dL [facility] Alkaline Phosphatase 72 39 - 117 U/L [facility] 04/02/2025 1:27 PM EDT 04/02/2025 2:14 PM EDT us Generic External Data Provider LAB BLOOD ORDERAB LES Final Result [facility] [address] [place] [phone] [phone] * BI US Breast Limited Right (01/22/2025 11:06 AM EDT) Anatomical Region Laterality Modality Breast Right Ultrasound 01/22/2025 11:0 6 AM EDT Narrative 01/22/2025 11:38 AM EDT [facility] [address] [place] [address] Ultrasound Report Signed Patient: Aurora Ferrara MR#: [id number] : 1980 Acct:[id number] Age/Sex: 44 / F ADM Date: 01/22/25 Loc: HO.MAMMO Attending Dr: Stan Marks CNM Ordering Physician: STAN MARKS CNM Date of Service: 01/22/25 Procedure(s): US breast RT limited Accession Number(s): [id number] cc: STAN MARKS CNM EXAMINATIONS: 1. MM [...] 01/22/25 1135 DD/ 1106 TD/TT: 01/22/25 1120 Senior Network Architect: Procedure Note Donotuseinterpreter, Image - [facility]/22/20[facility] [address] [place], [place] [address] Ultrasound Report Signed Patient: Aurora Ferrara MMR#: [id number] : 1980Acct:[id number] Age/Sex: 44 / FADM Date: 01/22/25 Loc: HO.MAMMO Attending Dr: Stan Marks CNM Ordering Physician: STAN MARKS CNM Date of Service: 01/22/25 Procedure(s): US breast RT limited Accession Number(s): [id number] cc: STAN MARKS CNM EXAMINATIONS: 1. MM [...] 01/22/25 1135 DD/ 1106 TD/TT: 01/22/25 1120 Senior Network Architect: us Stan Marks CNM IMG US PROCEDURES Final R esult * BI Mammogram Diagnostic Tomosynthesis Bilateral (01/22/2025 10:45 AM EDT) Anatomical Region Laterality Modality Breast Bilateral Mammography 01/22/2025 10:4 5 AM EDT Narrative 01/22/2025 11:38 AM EDT [facility] [address] [place] [address] Mammography Report Signed Patient: Aurora Ferrara MR#: [id number] : 1980 Acct:[id number] Age/Sex: 44 / F ADM Date: 01/22/25 Loc: HO.MAMMO Attending Dr: Stan Marks CNM Ordering Physician: STAN MARKS CNM Results: 1 Negative Date of Service: 01/22/25 Follow Up: 1 Year From Orig inal Mammogram Procedure(s): MM tomosynthesis diagnostic BI Accession Number(s): [id number] cc: RIZZARDINI,STAN CNM EXAMINATIONS: 1. MM DIAGNOSTIC DIGITAL BREAST [...] 01/22/25 1135 DD/ 1045 TD/TT: 01/22/25 1102 Senior Network Architect: Procedure Note Donotuseinterpreter, Image - 01/22/2025 [facility] [address] [place] [address] [place] [address] Mammography Report Signed Patient: Aurora Ferrara [facility]#: [id number] : 1980Acct:[id number] Age/Sex: 44 / FADM Date: 01/22/25 Loc: HO.MAMMO Attending Dr: Stan Marks CNM Ordering Physician: STAN MARKSesults: 1 Negative Date of Service: 01/22/25Follow Up: 1 Year From [facility] Mammogram Procedure(s): MM tomosynthesis diagnostic BI Accession Number(s): [id number] cc: STAN MARKS CNM EXAMINATIONS: 1. MM [...] Carlos Alex MD 01/22/2025 11:35 AM EDT Workstation: [employer] Dictated By: Juan Carlos Alex MD Signed By: <Electronically signed by Juan Carlos Alex MD in OV> 01/22/25 1135 DD/ 1045 TD/TT: 01/22/25 1102 Senior Network Architect: Stan Marks CN IMG BI PROCEDURES Final R esult * (ABNORMAL) Bacterial Vaginosis Panel (01/18/2025 2:59 PM EDT) TRICHOMONAS VAGINALIS DETECTION BY PCR NOT DETECTED Not Detect [facility] BACTERIAL VAGINOSIS DETECTION BY PCR POSITIVE(A) Negative [facility] Comment:The BV organism targ ets of [...] GROUP DETECTION BY PCR DETECTED(A) Not Detect [facility] Tiffany glab krusei PCR NOT DETECTED Not Detect [facility] Swab Vaginal structure / Unknown 01/18/2025 2:59 PM EDT 01/18/2025 4:40 PM EDT Rebekah Lloyd [facility] MICROBIOLOGY - GENERA L ORDERABLES Final Result [facility] [address] [place] [phone] * (ABNORMAL) POCT Urinalysis (01/18/2025 2:56 [...] 2:50 PM EDT) Color Urine Dark Yellow [facility] Appearance Urine Clear [facility] PH 7.0 5.0 - 9.0 [facility] Glucose Urine UA Negative Negative mg/dL [facility] Urine Blood Negative Negative [facility] Specific [place] - Urine 1.025 1.005 - 1.025 [facility] Urine Protein Trace Neg-Trace mg/dL [facility] Urine Ketones Trace Negative mg/dL [facility] Nitrite Urine Negative Negative [facility] Leukocyte Esterase Urine Small (1+)(A) Negative [facility] RBC Urine 0-2 0 - 2 /HPF [facility] Urine WBC 0-5 0 - 5 /HPF [facility] Urine Squamous Epithelial Cell 3-5 0 - 2 /HPF [facility] Urine Bacteria None Seen None Seen [facility] Hyaline Casts, Urine 0-2 0 - 2 /LPF [facility] Urine 01/18/2025 2:50 PM EDT 01/18/2025 4:40 PM EDT Narrative [facility] - 01/18/2025 5:02 PM EDT Urine, Clean Catch us Valente Valenzuela MD LAB URINE ORDERABLES Final Resul t Performing Organization Address City/[facility]/ZIP Co de Phone Number [facility] [address] [place] [phone] * Culture, Urine, Routine (01/18/2025 12:00 AM EDT) Urine Urine specimen obtained by clean catch procedure / Unknown 01/18/2025 01/18/2025 Comment:UACC Narrative [facility] [facility] - 01/20/2025 10:19 AM EDT Urine Culture No growth. Specimen Source: Urine clean catch us Valente Valenzuela MD LAB MICROBIOLOGY - GENERAL ORDER SERGIO Final Result Performing Organization Address City/[facility] Co de Phone Number [facility] [address] [place] [phone] * US Pelvis Transvaginal (01/15/2025 8:55 PM EDT) Anatomical Region Laterality Modality Pelvis Ultrasound 01/15/2025 8:55 PM EDT Narrative 01/15/2025 8:56 PM EDT [address] [address] Ultrasound Report Signed Patient: Aurora Ferrara MR#: [id number] : 1980 Acct:[id number] Age/Sex: 44 / F ADM Date: 01/15/25 Loc: HO.US Attending Dr: Stan Marks CNM Ordering Physician: STAN MARKS CNM Date of Service: 01/15/25 Procedure(s): US pelvic and transvaginal Accession Number(s): [id number] cc: STAN MARKS CNM CLINICAL HISTORY: AUB [...] in OV> 01/15/252055 DD/ 54 TD/TT: 01/15/252054 Senior Network Architect: Procedure Note Donotuseinterpreter, Image - 01/15/2025 [place] [address] Ultrasound Report Signed Patient: Aurora Ferrara [facility]#: [id number] : 1980Acct:[id number] Age/Sex: 44 / FADM Date: 01/15/25 Loc: HO.US Attending Dr: Stan Marks CNM Ordering Physician: STAN MARKS CNM Date of Service: 01/15/25 Procedure(s): US pelvic and transvaginal Accession Number(s): [id number] cc: STAN MARKS CNM CLINICAL HISTORY: AUB [...] in OV> 01/15/252055 DD/ 54 TD/TT: 01/15/252054 Senior Network Architect: Stan Marks CNM IM US PROCEDURES Edited Result - Final * HPV DNA, Low/High Risk (01/05/2025 2:20 PM EDT) HPV High Risk Negative Negative [facility] HPV Genotype 16 Negative Negative [facility] HPV Genotype 18 Negative Negative [facility] Comment:HPV testing performe d at [facility] (CLIA#[id number]), [address] [place] [address].Testing for HPV was performed using the Aicha [...] PM EDT 01/06/2025 7:35 AM EDT Stan Marks CNM LAB BLOOD ORDERABLES Delphine l Result [facility] [address] [place] [address] [phone] * Pap Smear (01/05/2025 2:20 PM EDT) Swab Cervix uteri structure / Unknown 01/05/2025 2:20 PM EDT 01/06/2025 7:35 AM EDT Narrative [facility] - 01/19/2025 8:59 AM EDT ----- ------- Name: Aurora Ferrara Age/Sex: 44/F : 1980 Unit#: [id number] Attend Dr: STAN MARKS CNM Re01/05/25 Status: DEP REF Location: [facility] Disch: ----- ------- SPEC : [id number] RECD: 01/06/25 STATUS: NELI JOHN NUM: [id number] ROYCE: 01/05/25-[address] [facility] [address]: STAN MARKS ENTERED: 01/06/25 SP TYPE: Pap Smr OTHR DR: ORDERED: Pap Smear Interpretation Satisfactory for [...] HPV testing will be performed at [facility] (CLIA #[id number]), [address] [place] [address]. Testing for HPV was performed using the Aicha ARIANA 6800 system. The presence of HPV [...] detected. All professional services are performed by [facility] ([address] [place] [address]; ; CLIA #[id number]). The PAP Test is a screening procedure with the inherent possibility of both false negative and false positive results. Results should be interpreted in the context of historic and current clinical findings. Reliability of the PAP Test is enhanced by performing the test on a regular repetitive basis. CONTINUED ON NEXT PAGE ----- ------- Name: Aurora Ferrara Age/Sex: 44/F : 1980 Unit#: [id number] Attend Dr: STAN MARKS CNM Re01/05/25 Status: DEP REF Location: [facility] Disch: ----- ------- SPEC : [id number] RECD: 01/06/25 STATUS: NELI JOHN NUM: [id number] ROYCE: 01/05/25-14[address] [facility] [address]: STAN MARKS CNM ENTERED: 01/06/25 SP TYPE: Pap Smr OT : ORDERED: Pap Smear ----- ------- Signed (signature on file) KYRA Edwards (ASCP) 01/19/25 0859 ----- ------- END OF REPORT us Stan Marks [facility] CYTOLOGY ORDERABLES F inal Result [facility] [address] [place] [phone] * Lipid Panel, Standard (11/13/2024 9:53 AM EDT) Triglycerides 46 <150 mg/dL [facility] Comment:Desirable Triglyceri de: less than 150 mg/dLBorderline High Triglyceride 150-199 mg/dLHigh Triglyceride: 200-499 mg/dLVery High Triglyceride: greater than or equal to 5OO mg/dL Cholesterol 172 <200 mg/dL [facility] Comment:Desirable Cholestero l: less than 200 mg/dLBorderline High Cholesterol: 200-239 mg/dLHigh Cholesterol: greater than 239 mg/dL LDL Cholesterol Calculated 94 <100 mg/dL [facility] Comment:Desirable LDL: less than 100 mg/dLNear Optimal/Above Optimal LDL: 110- 129 mg/dLBorderline High LDL: 130-159 mg/dLHigh LDL: 160-189 mg/dLVery High LDL: greater than or equal to 190 mg/dL HDL Cholesterol 69 >40 mg/dL [facility] Comment:Desirable HDL: great er than 40 mg/dL Note: This HDL assay may give artificially low results in patients with liver disease. 11/13/2024 9:53 AM EDT 11/13/2024 9:53 AM EDT us Generic External Data Provider LAB BLOOD ORDERAB LES Final Result Performing Organization Address [facility]/ZIP Co de Phone Number [facility] [address] [place] [address] [phone] * Hepatitis C Antibody with Reflex to HCV, RNA, Quantitative, Real-Time PCR (04/09/2024 12:15 PM EDT) Hepatitis C Antibody Nonreactive Nonreactive [facility] Comment:Antibodies to HCV no t detected; does not exclude early acuteHCV infection. Blood Venous blood specimen / Unknown 04/09/2024 12:15 PM EDT 04/09/2024 1:17 PM EDT us Magaly Maldonado MD LAB BLOOD ORDERABLES Final Result Performing Organization Address [facility] Co de Phone Number [facility] [address] [place] [phone] * HIV-1/2 Antigen and Antibodies, Fourth Generation, with Reflexes (04/09/2024 12:15 PM EDT) HIV AB/AG Nonreactive Nonreactive [facility] Comment:HIV-1 p24 Ag and/or HIV-1/HIV-2 Ab not detected.A test result that is nonreactive does not exclude thepossibility of exposure to or infection with HIV-1 and/orHIV-2. Nonreactive results in this assay for individualswith prior exposure to HIV-1 and/or HIV-2 may be due toantigen and antibody levels that are below the limit ofdetection of this assay.The [employer] HIV Ag/Ab Combo assay result andsupplemental assay results should be interpreted inconjunction with the patient's clinical presentation,history and other laboratory results. If the results areinconsistent with clinical evidence, additional testing issuggested to confirm the result. Blood Venous blood specimen / Unknown 04/09/2024 12:15 PM EDT 04/09/2024 1:17 PM EDT us Magaly Maldonado MD LAB BLOOD ORDERABLES Final Result [facility] [address] [place] [phone] from Last 3 Months or Most Recently Relevant to Health Maintenance Insurance [facility] C3 Care Teams Runner On Relationship Specialty Start Date End Date Magaly Mcrae MD [address] [place] [address] PCP - General Family Medicine 02/19/18 Anne Marie Reza Runner ManCrop Nutrition Scientist 04/14/25
--- OUTSIDE RECORDS SUMMARY | 2025-04-14 18:47 | XMS_ITS | Encounter Summary ---
Author Organization [employer] Address [address] [place] [address] Care Team Providers Care Home Health Provider Name Role Phone Magaly Mcrae MD Primary Care Provide r Encounter Details Date Type Department Care Team (Late st Contact Info) Description 04/06/2025 Orders Only GENERIC EXTERNAL DATA DEPARTMENT Provider, Generic External Data Social History Tobacco Use Types Packs/Day Years [...] Description 06/23/2025 3:30 PM EST Office Visit [facility] [address] [place], [place] [phone] Magaly Mcrae MD [address] [place] [address] documented as of this encounter Procedures Procedure Name Priority Date/Time Associated Diagnosis Comments GROSS AND MICROSCOPIC LEVEL 2 Routine 04/06/2025 11:22 AM EDT documented in this encounter Results * Gross and Microscopic Level 2 (04/06/2025 11:22 AM EDT) 04/06/2025 11:2 2 AM EDT 04/06/2025 1:50 PM EDT [facility] - 04/09/2025 10:21 AM EDT ----- ------- Name: Aurora Ferrara Age/Sex: 44/F : 1980 Unit#: [id number] Attend Dr: Kashmir Freeman MD Re04/06/25 Status: [facility] Location: [facility] Disch: ----- ------- SPEC : [id number] RECD: 04/06/25 STATUS: NELI JOHN NUM: [id number] ROYCE: 04/06/[address]: Kashmir Freeman MD ENTERED: 04/06/25 SP TYPE: Surgical OTHR DR: STAN MARKS [facility] ORDERED: Gross Micro L2, Gross Micro [...] fibrofatty subcutaneous soft tissue without discrete abnormality. Cruller Maker sections are submitted in cassettes A1 -3. B. Received in formalin is a 1.6 cm in greatest dimension portion of fibrofatty soft tissue, sectioned and entirely submitted in cassette B1. (DTL) IHC S/NG Disclaimer NOTE: Unless otherwise stated, all tissue is formalin-fixed and paraffin-embedded. Some or all of the immunohistochemical tests reported herein may have been developed and their performance characteristics determined by [facility]. They have not been cleared [...] Aurora Ferrara Age/Sex: 44/F : 1980 Unit#: [id number] Attend Dr: Kashmir Freeman MD Re04/06/25 Status: [facility] Location: [facility] Disch: ----- ------- SPEC : [id number] RECD: 04/06/25 STATUS: NELI ALVARO NUM: [id number] ROYCE: 04/06/[address]: Kashmir Freeman MD ENTERED: 04/06/25 SP TYPE: Surgical OTHR DR: STAN MARKS CNM ORDERED: Gross Micro L2, Gross Micro L3 Copies To: Kashmir Freeman MD [facility] Weight Management Program [address] [place] [phone] STAN MARKS CNM [address] [phone] ----- ------- Signed (signature on file) Katharina Duron MD 04/09/25 1021 ----- ------- END OF REPORT us Generic External Data Provider LAB CYTOLOGY HOLLY CHILD Final Result [facility] [address] [place] [phone] documented in this encounter Visit Diagnoses Not on filedocumented in this encounter Additional Health Concerns Assessment Noted Time PHQ-9 Depression Total Score: 15 09/21/ 025 11:32 AM EDT documented as of this encounter Care Teams Home Health Provider Relationship Specialty Start Date End Date Magaly Mcrae MD [address] [place] [address] PCP - General Family Medicine 02/19/18 documented as of this encounter
--- OUTSIDE RECORDS SUMMARY | 2025-04-14 18:47 | XMS_ITS | Encounter Summary ---
Author Organization [employer] Address [address] 7 [place] [address] Care Team Providers Care Buffing And Sueding Machine Operator Name Role Phone Magaly Mcrae MD Primary Care Provide r Reason for Visit * Reason Onset Date Comments Chart Prep 04/12/2025 Encounter Details Date Type Department Care Team ([facility] st Contact Info) Description 04/12/2025 Telephone [facility] [address] [place], [place] [phone] Magaly Mcrae MD [address] [place], [place] [phone] Chart Prep Social History Tobacco Use Types Packs/Day Years [...] encounter Miscellaneous Notes * Telephone Encounter - Justina Shoemaker MA - 04/12/2025 11:43 AM EST Chart Prep Labs: done Images: done Referrals: appointment pending Vaccines due: Covid, Flu, Tdap, Hep B, and HPV Screenings: LMP Overdue care gaps: SBIRT, PHQ-9, and CHLOE-7 documented in this encounter Plan of Treatment Upcoming Encounters Date Type Department Care Team (Late st Contact Info) Description 06/23/2025 3:30 PM EST Office Visit [facility] [address] [place] [address] Magaly Mcrae MD [address] [place] [address] documented as of this encounter Visit Diagnoses Not on filedocumented in this encounter Additional Health Concerns Assessment Noted Time PHQ-9 Depression Total Score: 15 025 11:32 AM EDT documented as of this encounter Care Teams Buffing And Sueding Machine Operator Relationship Specialty Start Date End Date Magaly Mcrae MD [address] [place] [address] PCP - General Family Medicine 02/19/18 documented as of this encounter
--- OUTSIDE RECORDS SUMMARY | 2025-04-14 18:47 | XMS_ITS | Encounter Summary ---
Author Organization [employer] Address [address] [facility] 7 [place] [address] Care Team Providers Care Designer And Patternmaker Name Role Phone Magaly Mcrae MD Primary Care Provide r Reason for Visit * Reason Onset Date Comments Care Coordination 04/14/2025 ICP Care Plan Encounter Details Date Type Department Care Team ([facility] st Contact Info) Description 04/14/2025 Telephone [facility] [address] [place], [place] [phone] Magaly Mcrae MD [address] [place] [address] Care Coordination (ICP Care Plan) Social History Tobacco Use Types Packs/Day Years [...] encounter Miscellaneous Notes * Telephone Encounter - Alanna Loja - 04/14/2025 3:28 PM EST PCP Designee has received and reviewed Care Plan from [facility]: Hearing Health Technician: Anne Marie Reza Contact Information: [phone] Care Plan scanned into patient???s EHR and notification sent to PCP. documented in this encounter Plan of Treatment Upcoming Encounters Date Type Department Care Team (Late st Contact Info) Description 06/23/2025 3:30 PM EST Office Visit [facility] [address] [place] [address] Magaly Mcrae MD [address] [place] [address] documented as of this encounter Visit Diagnoses Not on filedocumented in this encounter Additional Health Concerns Assessment Noted Time PHQ-9 Depression Total Score: 12 025 3:36 PM EST documented as of this encounter Care Teams Designer And Patternmaker Relationship Specialty Start Date End Date Magaly Mcrae MD [address] [place] [address] PCP - General Family Medicine 02/19/18 Anne Marie Reza Vp Revenue CycleAcid Bath Mixer 04/14/25 documented as of this encounter
--- OUTSIDE RECORDS SUMMARY | 2025-04-14 18:47 | XMS_ITS | Encounter Summary ---
Author Organization [facility] Address [address] [place] [address] Care Team Providers Care School Physical Therapist Name Role Phone Thu Tam MD Primary Care Provider + [phone] Encounter Details Date Type Department Care Team (Late st Contact Info) Description 02/04/2025 Lab Requisition [facility] - Main Lab [address] [place] [phone] Bettina Sanford MD [address] [facility] [address] [place] [phone] Abnormal uterine and vaginal bleeding, unspecified Social [...] No endometrium identified 02/05/2025 1:27 PM EDT [facility] Clinical Information Abnormal uterine bleeding 02/05/2025 1:27 PM EDT [facility] Gross Description A. Endometrium, biopsy: Labeled with the patient's name and information. Received in formalin is a 1.1 x 0.8 x 0.2 cm aggregate of irregular pink-red soft tissue fragments admixed with mucoid substance which is submitted in toto in a mesh bag in one cassette, multiple pieces, x 2. LENARD 02/05/2025 1:27 PM EDT [facility] Disclaimer Unless otherwise specified, all tissue is 10% NB formalin fixed and paraffin embedded. 02/05/2025 1:27 PM EDT [facility] Tissue Endometrial structure / Unknown 02/04/2025 02/04/2025 12:36 PM EDT us Bettina Sanford MD LAB PATHOLOGY ORDERABLES Final Result [facility] [address] [place] [address], documented in this encounter Visit Diagnoses Diagnosis Abnormal uterine and vaginal bleeding, unspecified documented in this encounter Care Teams School Physical Therapist Relationship Specialty Start Date End Date Thu Tam MD [address] [place] [phone] PCP - General Internal Medicine 03/13/24 documented as of this encounter
--- OUTSIDE RECORDS SUMMARY | 2025-04-14 18:47 | XMS_ITS | Encounter Summary ---
Author Organization [employer] Address [address] [place] [address] Care Team Providers Care Mortgage Consultant Name Role Phone Magaly Mcrae MD Primary Care Provide r Encounter Details Date Type Department Care Team ([facility] st Contact Info) Description 02/13/2024 Telephone [facility] [address] [place], [place] [phone] Magaly Mcrae MD [address] [place], [place] [phone] Social History Tobacco Use Types Packs/Day Years [...] Description 06/23/2025 3:30 PM EST Office Visit [facility] [address] [place] [phone] Magaly Mcrae MD [address] [place] [phone] documented as of this encounter Visit Diagnoses Not on filedocumented in this encounter Additional Health Concerns Assessment Noted Time PHQ-9 Depression Total Score: 11 023 3:07 PM EDT documented as of this encounter Care Teams Mortgage Consultant Relationship Specialty Start Date End Date Magaly Mcrae MD [address] [place] [phone] PCP - General Family Medicine 02/19/18 Anne Marie Reza Reservations ClerkNewspaper Manager 04/14/25 documented as of this encounter
--- OUTSIDE RECORDS SUMMARY | 2025-04-14 18:47 | XMS_ITS | Encounter Summary ---
Author Organization [employer] Address [address] [place] [address] Care Team Providers Care Network Diagnostic Support Specialist Name Role Phone Magaly Mcrae MD Primary Care Provide r Encounter Details Date Type Department Care Team (Latest Contact Info) Description 04/13/2025 Travel Social History Tobacco Use Types Packs/Day Years [...] AM EDT documented as of this encounter Functional Status * Over the past 2 weeks, how often have you been bothered by any of the following problems? Question Answer Date of Assessment Author Patient Health Questionnaire-2 Score 3 09/2024 3:36 PM Silvana Evans MA * Little interest or pleasure in doing things Answer Date of Assessment Author Several days 04/13/2025 3:36 PM Lucian Evans ra, [place] * Feeling down, depressed, or hopeless Answer Date of Assessment Author More than half the days 04/13/2025 3:36 PM EST Silvana Miner [place] * Trouble falling or staying asleep, or sleeping too much Answer Date of Assessment Author More than half the days 04/13/2025 3:36 PM Silvana Salvador MA * Feeling tired or having little energy Answer Date of Assessment Author Nearly every day 04/13/2025 3:36 PM Marky Evans [place] * Poor appetite or overeating Answer Date of Assessment Author More than half the days 04/13/2025 3:36 PM Silvana Salvador MA * Feeling bad about yourself - [...] MA Trouble relaxing 3 04/13/2025 3:36 PM EST Silvana Miner MA Being so restless that it is hard to sit still 3 04/13/2025 3:36 PM Silvana Evans MA Becoming easily annoyed or irritable 3 09/2024 3:36 PM Silvana Evans MA Feeling afraid as if somethi ng awful might happen 1 04/13/2025 3:36 PM Silvana Evans MA CHLOE-7 Total Score 18 04/13/2025 3:36 PM Silvana Evans MA documented as of this encounter Plan of Treatment Upcoming Encounters Date Type Department Care Team (Late st Contact Info) Description 06/23/2025 3:30 PM EST Office Visit [facility] [address] [place] [address] Magaly Mcrae MD [address] [place] [address] documented as of this encounter Visit Diagnoses Not on filedocumented in this encounter Additional Health Concerns Assessment Noted Time PHQ-9 Depression Total Score: 12 025 3:36 PM EST documented as of this encounter Care Teams Network Diagnostic Support Specialist Relationship Specialty Start Date End Date Magaly Mcrae MD [address] [place] [address] PCP - General Family Medicine 02/19/18 documented as of this encounter
--- OUTSIDE RECORDS SUMMARY | 2025-04-14 18:47 | XMS_ITS | Clinical Summary ---
Author Organization 175 [facility] Address [address] [place] [address] Phone Care Team Providers Care Spinner Continuous Name Role Phone Thu Tam MD Primary Care Provider + [phone] Allergies No known active allergies Medications DICLOFENAC [...] Department Care Team Description 02/04/[address] [facility] [address] [facility] [place] [id number] Bettina Sanford MD Abnormal uterine and vaginal bleeding, unspecified 01/29/2025 10:30 AM EDT Consult Orthopedic Surgery [facility] [address] [facility] [address] [place] [address] Dar Taylor MD Knee pain, left (Primary Dx); Old tear of medial meniscus of left knee, unspecified tear type 01/14/2025 10:30 AM EDT Office Visit Orthopedic Surgery [facility] [address] [facility] [address] [place] [phone] Niik Ramsey MD Derangement of unspecified medial meniscus [...] LAB CHEMISTRY METHOD 02/04/2025 5:[address] [facility] Testosterone, Free 0.1 0.0 - 0.5 ng/dL LAB CHEMISTRY METHOD 02/04/2025 5:[address] [facility] Testosterone, Bioavailable 2 1 - 9 ng/dL LAB CHEMISTRY METHOD 02/04/2025 5:[address] [facility] Sex Hormone Binding 148.1 See Comment nmol/L LAB CHEMISTRY METHOD 02/04/2025 5:[address] [facility] Comment: FEMALES: pre-menopausal 10.8 - [...] LAB CHEMISTRY METHOD 02/04/2025 5:[address] [facility] Blood Venous blood specimen / Unknown Venipuncture / Unknown 02/04/2025 11:15 AM EDT 02/04/2025 12:47 PM EDT us Bettina Sanford MD LAB BLOOD ORDERABLES Fin al Result [facility] [address] [place] [address], [place] [phone] * Sex hormone binding globulin (02/04/2025 11:15 AM EDT) Pathologist [facility] Sex Hormone Binding 148.1 See Comment nmol/L LAB CHEMISTRY METHOD 02/04/2025 5:[address] [facility] Comment: FEMALES: pre-menopausal 10.8 - [...] ORDERABLES Fin al Result Performing Organization Address [facility] Co de Phone Number [facility] [address] [place] [address], [place] [phone] * Progesterone (02/04/2025 11:15 AM EDT) Pathologist [facility] Progesterone <0.2 ng/mL LAB CHEMISTRY METHOD 02/04/2025 2:[address] [facility] Comment: PROGESTERONE REFERENCE RANGES (NG/ML) [...] ORDERABLES Fin al Result Performing Organization Address [facility]/ZIP Co de Phone Number [facility] [address] [place] [address], [place] [phone] * Estradiol (02/04/2025 11:15 AM EDT) Estradiol <11 See below pcg/mL LAB CHEMISTRY METHOD 02/04/2025 1:[address] [facility] Comment: ESTRADIOL REFERENCE RANGES (PG/ML) [...] ORDERABLES Fin al Result Performing Organization Address [facility]/ZIP Co de Phone Number [facility] [address] [place] [address], * Luteinizing hormone (02/04/2025 11:15 AM EDT) Luteinizing Hormone 14.8 See Comment mIU/mL LAB CHEMISTRY METHOD 02/04/2025 1:[address] [facility] Blood Venous blood specimen / Unknown Venipuncture / Unknown 02/04/2025 11:15 AM EDT 02/04/2025 12:[address] [facility] - 02/04/2025 1:45 PM EDT LH REFERENCE RANGES (MIU/ML) FEMALES NORMALLY MENSTRUATING: FOLLICULAR PHASE 1.9 - 12.8 MIDCYCLE PEAK 22.8 - 76.1 LUTEAL PHASE 0.6 - 13.5 POSTMENOPAUSAL: ON HRT 1.1 - 52.4 UNTREATED 8.6 - 61.8 Bettina Sanford MD LAB BLOOD ORDERABLES Fin al Result Performing Organization Address [facility] Co de Phone Number [facility] [address] [place] [address], [place] [phone] * Follicle stimulating hormone (02/04/2025 11:15 AM EDT) Follicle Stimulating Hormone 51.1 See Comment mIU/mL LAB CHEMISTRY METHOD 02/04/2025 1:[address] [facility] Comment: FSH REFERENCE RANGES (MIU/ML) [...] ORDERABLES Fin al Result Performing Organization Address City/[facility]/ZIP Co de Phone Number [facility] [address] [place] [address], [place] [phone] * Tissue Exam (02/04/2025) Final Diagnosis Endometrial biopsy: Benign endocervical glandular epithelium and inflamed squamous epithelium No endometrium identified 02/05/2025 1:[address] [facility] Clinical Information Abnormal uterine bleeding 02/05/2025 1:[address] [facility] Gross Description A. Endometrium, biopsy: Labeled with the patient's name and information. Received in formalin is a 1.1 x 0.8 x 0.2 cm aggregate of irregular pink-red soft tissue fragments admixed with mucoid substance which is submitted in toto in a mesh bag in one cassette, multiple pieces, x 2. LENARD 02/05/2025 1:[address] [facility] Disclaimer Unless otherwise specified, all tissue is 10% NB formalin fixed and paraffin embedded. 02/05/2025 1:[address] [facility] Tissue Endometrial structure / Unknown 02/04/2025 02/04/2025 12:36 PM EDT Bettina Sanford MD LAB PATHOLOGY ORDERABLES Final Result [facility] [address] [place] [address], * XR Knee 3 Views Left (01/29/2025 10:17 AM EDT) Anatomical Region Laterality Modality Lower Extremities, Knee Left Computed Radiography Narrative 01/29/2025 10:49 AM EDT X-rays January 29, 2025. Bilateral knee PA weightbearing views. Lateral view of the left knee. [place] view of the left knee. No acute osseous abnormalities. No significant malalignment. Overall good preservation of the articular cartilage. Dar Taylor MD IMG XR PROCEDURES Final Result from Last 3 Months Insurance MEDICAID - [place] Care Teams Spinner Continuous Relationship Specialty Start Date End Date Thu Tam MD [address] [place] [phone] PCP - General Internal Medicine 03/13/24
--- OUTSIDE RECORDS SUMMARY | 2025-04-14 18:47 | XMS_ITS | Encounter Summary ---
Author Organization [employer] Address [address] [facility] 7 [place] [address] Care Team Providers Care Associate Faculty Name Role Phone Magaly Mcrae MD Primary Care Provide r Reason for Visit * Reason Onset Date Comments Referral 04/02/2025 Encounter Details Date Type Department Care Team ([facility] st Contact Info) Description 04/02/2025 Telephone [facility] [address] [place], [place] [phone] Magaly Mcrae MD [address] [place], [place] [phone] Referral Social History Tobacco Use Types Packs/Day Years [...] encounter Miscellaneous Notes * Telephone Encounter - Keri Garcia RN - 04/02/2025 10:[address] [facility], original referral for eczema however appointment is not for >1 year from referral date. Thank you!! * Telephone Encounter - Mandi Sands - 04/02/2025 9:26 AM EDT TC from Anne Marie requesting to renew [facility] referral. Anne Marie mentioned that the facility scheduled the appointment after the previous referral , and a new referral is needed. The appointment is scheduled for 01/01/2026. Contact pt at [phone] documented in this encounter Plan of Treatment Upcoming Encounters Date Type Department Care Team (Late st Contact Info) Description 06/23/2025 3:30 PM EST Office Visit [facility] [address] [place] [phone] Magaly Mcrae MD [address] [place], [place] [phone] documented as of this encounter Visit Diagnoses Not on filedocumented in this encounter Additional Health Concerns Assessment Noted Time PHQ-9 Depression Total Score: 15 025 11:32 AM EDT documented as of this encounter Care Teams Associate Faculty Relationship Specialty Start Date End Date Magaly Mcrae MD [address] [place] [address] PCP - General Family Medicine 02/19/18 Anne Marie Reza [employer] SpecialistCarroting Machine Operator 04/14/25 documented as of this encounter
--- OUTSIDE RECORDS SUMMARY | 2025-04-14 18:47 | XMS_ITS | Encounter Summary ---
Author Organization [employer] Address [address] [facility] [address] [place] [address] Care Team Providers Care Charge Weigher Name Role Phone Magaly Mcrae MD Primary Care Provide r Encounter Details Date Type Department Care Team (Latest Contact Info) Description 04/05/2025 Results Follow-Up [facility] [address] [place], [place] [phone] Diya York CNM [address] [place] [address] Prothrombin Time-INR, Partial Thromboplastin Time, Activated (APTT), CBC auto differential, Additional followed-up results: 2 Social History Tobacco Use Types Packs/Day Years [...] as of this encounter Miscellaneous Notes * Result Encounter Note - Diya York CNM - 04/05/2025 11:29 AM EDT FYI documented in this encounter Plan of Treatment Upcoming Encounters Date Type Department Care Team (Late st Contact Info) Description 06/23/2025 3:30 PM EST Office Visit [facility] [address] [place] [phone] Magaly Mcrae MD [address] [place] [address] documented as of this encounter Visit Diagnoses Not on filedocumented in this encounter Additional Health Concerns Assessment Noted Time PHQ-9 Depression Total Score: 15 025 11:32 AM EDT documented as of this encounter Care Teams Charge Weigher Relationship Specialty Start Date End Date Magaly Mcrae MD [address] [place] [phone] PCP - General Family Medicine 02/19/18 Anne Marie Reza ShotblasterGrocery Caddy 04/14/25 documented as of this encounter
== END 2025-04-15 08:52 | disposition home or self-care (01) ==
LOC: HO.HBS 15:57
PROVIDERS: PCP Advanced Practice Midwife; Visit Provider Physician Assistant Surgical
DX: Z71.3 Dietary counseling and surveillance (principal); Z98.890 Other specified postprocedural states; Z98.84 Bariatric surgery status
CPT/HCPCS: 99024

== ENCOUNTER → 2025-04-14 15:56 | Outpatient (BNVA) | payer MEDICAID, SELFPAY | PROVIDERS: PCP Advanced Practice Midwife; Visit Provider Physician Assistant Surgical | DX: Z98.84 Bariatric surgery status (principal) | CPT/HCPCS: 99212 ==

== ENCOUNTER 2025-04-22 14:54 | Outpatient (AMB) | payer MEDICAID, SELFPAY ==
--- NOTE | 2025-04-22 13:53 | MHC.OFFVISWM ---
VS Expanded 04/22/25 15:39 BP 90/59 L Blood Pressure Location Rt brachial Blood Pressure Position Sitting Pulse 62 Pulse Source Pulse Oximeter Temp 98.6 F Temperature Source Temporal Artery Scan Pulse Oximetry 96 Oxygen Delivery Method Room Air Intake Visit Reasons: OV Panniculectomy 04/06/25 Allergies No Known Allergies Allergy (Verified 03/24/25 22:42) Medication List - Last Reconciled 04/22/25 by Denise Everett CNP bupropion HCl SR 200 mg PO QAM cholecalciferol (vitamin D3) (Vitamin D3) 25 mcg PO DAILY docusate sodium (Colace) 100 mg PO DAILY fluticasone propionate 50 mcg/actuation 1 spray intranasal BID hydroxyzine HCl 25 mg PO BID PRN gkkoywsbhaif-wim-qfom-FA-vit K 45 mg iron- 800 mcg-120 mcg (Bariatric Multivitamins) 1 cap PO .daily in evening ondansetron 4 mg PO Q12H sumatriptan succinate 25 mg PO QID PRN trazodone 25 - 50 mg PO BEDTIME PRN HPI Comments Details: 44 year old woman s/p panniculectomy 04/06/2025. Drain in place, output 5mL/day for several days. Independently performs daily dressing changes, with help from daughter and VNA comes a couple times per week. Following approved meal plan. [facility] Medical History Postgastrectomy malabsorption GERD (gastroesophageal reflux disease) Depression Hx of bipolar disorder Panic attack Surgical History History of sleeve gastrectomy History of endometrial ablation H/O parathyroidectomy History of esophagogastroduodenoscopy (EGD) History of tonsillectomy and adenoidectomy Hx of tubal ligation Family History Mother Heart disease Arthritis Father Liver disease Herniated disc Brother No problems noted. Brother No problems noted. Brother No problems noted. Sister Diabetes Sister Migraine Sister HIV disease Sister No problems noted. Sister No problems noted. Daughter Asthma Son No problems noted. Paternal Aunt Breast cancer Social History Household Members: Family Housing: Apartment Are you a primary multi care technician to a significant other at home: No Do you presently have visiting nurse or other home services: No 75 years or older and lives alone: No Alcohol intake: never Patient Tobacco Use Status: Former Tobacco user Tobacco use type: Cigarette Substance Use Type: Marijuana service: No Current occupational status: unemployed Female Reproductive History Menstrual Age of Menarche: 13 Physical Exam Const General: cooperative, comfortable and no acute distress Orientation/consciousness: patient oriented x3 GI Other: abd soft, non-tender, non-distended. Panniculectomy incision healing well, no S&S of infection, dressing CDI. Drain in place, SS output. Neuro General: patient oriented x3 Assessment & Plan Assessment & Plan (1) S/P laparoscopic sleeve gastrectomy: Code(s): Z98.84 - Bariatric surgery status Category: Surgical (2) S/P panniculectomy: Code(s): Z98.890 - Other specified postprocedural states Category: Surgical Plan Continue high protein diet. Drain out after consistently 20 mL or less daily.? Will keep drain x1 more week, to ensure drain output is below threshold. Continue ABX Keflex BID, may discontinue 1 week after drain removal. Abdominal binder at all times except for care x 1 month?MINIMUM. Longer if there are concerns. No walking outside or exercise for 6 weeks minimum. Walking in the house ok. Assistance getting up for 4 weeks minimum.?No lifting greater than?10 pounds x 2 months and no abdominal exercises x 3 months. No [address]?until drain out.? Follow up: 1 week, as scheduled on 04/28/2025
[2025-04-22 15:39] VITALS: BP 90/59; PULSE 62; TEMP 37; O2SAT 96
--- OUTSIDE RECORDS SUMMARY | 2025-04-22 18:12 | XMS_ITS | Clinical Summary ---
Author Organization [employer] Address [address] [facility] [address] [place] [address] Care Team Providers Care Humidifier Maintenance Worker Name Role Phone Magaly Mcrae MD Primary [...] 60 capsule 1 10/24/19 25 026 Active SUMAtriptan (Imitrex) 25 [...] (dryness). 45 g 2 04/13/20 25 Active fluticasone (Flonase) 50 MCG/ACT nasal sprayIndication s:Seasonal allergic rhinitis, unspecified trigger ADMINISTER 1-2 SPRAYS INTO EACH NOSTRIL ONCE PER DAY. SHAKE GENTLY. BEFORE FIRST USE, PRIME PUMP. AFTER USE, CLEAN TIP AND REPLACE CAP. 48 mL 04/19/20 25 026 Active triamcinolone (Kenalog) 0.1 % creamIndication s:Irritant contact dermatitis due to detergent Apply topically if needed in the morning and at bedtime (pain and swelling). 30 g 04/29/20 24 025 Discontinued fluticasone (Flonase) 50 MCG/ACT nasal sprayIndication s:Seasonal allergic rhinitis, unspecified trigger Administer 1-2 sprays into each nostril Once per day. Shake gently. Before first use, prime pump. After use, clean tip and replace cap. 16 g 2 10/24/19 25 025 Discontinued Active Problems Problem Noted Date [...] Plan (02/07/2024 1:00 PM EDT): Refer to Certified Respiratory Therapist. Chronic pain of left knee 10/24/2022 Assessment [...] Encounters Date Type Department Care Team Description 04/17/2025 Refill [facility] [address] [place] [address] Magaly Mcrae MD Seasonal allergic rhinitis, unspecified trigger 04/14/2025 Telephone [facility] MED & PEDS [address] [place], [place] [phone] Magaly Mcrae MD Care Coordination (ICP Care Plan) 04/13/2025 3:15 PM EST Office Visit [facility] [address] [place] [address] Magaly Mcrae MD Encounter for preventive care (Primary Dx); Dietary counseling; Exercise counseling; Post-surgical hypoparathyroidism; Irritant contact dermatitis, unspecified trigger 04/13/2025 Travel 04/12/[address] [address] Magaly Mcrae MD Chart Prep 04/06/2025 Orders Only GENERIC EXTERNAL DATA DEPARTMENT Provider, Generic External Data 04/06/2025 Patient Outreach [facility] [address] [place], [place] [phone] Magaly Mcrae MD Pre-visit Planning ([facility] unable to reach [facility]) 04/05/[address] [address] Magaly Mcrae MD tammy recall 04/05/2025 Results Follow-Up [address] [address] Stan Marks, ELENIM Prothrombin Time-INR, Partial Thromboplastin Time, Activated (APTT), CBC auto differential, Additional followed-up results: 2 04/02/2025 Orders Only [address] [address] Magaly Mcrae MD Eczema, unspecified type (Primary Dx) 04/02/[address] [address] Magaly Mcrae MD Referral 02/15/2025 Patient Outreach [address] [address] Magaly Mcrae MD Care Coordination ([facility] f/u, program graduation) 01/28/2025 Patient Outreach [address] [address] Magaly Mcrae MD Care Management ([facility]- F/U call) 01/27/2025 Patient Outreach [address] [address] Magaly Mcrae MD Care Coordination ([facility] f/u call) 01/25/2025 Orders Only [facility] [address] [place] [address] Stan Marks, DUDLEY Mass of upper outer quadrant of right breast (Primary Dx) 01/20/[address] [facility] [address] [place] [address] eRbekah Lloyd CNP Bacterial vaginosis (Primary Dx) 01/20/2025 Results Follow-Up [facility] [address] [place] [address] Rebekah Lloyd CNP Urinalysis, Complete, with Reflex to Culture, Bacterial Vaginosis Panel from Last 3 Months Immunizations Immunization Administration [...] Description 06/23/2025 3:30 PM EST Office Visit [facility] [address] [place] [address] Magaly Mcrae MD [address] [place] [address] Health Maintenance Due Date Last Done Comments HPV Vaccines (1 - 3-dose series) 11/29/1995 Hepatitis B Vaccines (1 of 3 - 19+ 3-dose series) 11/29/1999 DTaP/Tdap/Td Vaccines (2 - Td or Tdap) 02/02/2024 02/01/2014, 02/26/2008 COVID-19 Vaccine ( season) 2025 Influenza Vaccine (#1) 2025 9, 04/03/2013, 04/11/2012 SDOH Screening 09/21/2025 09/21/2024 Depression Monitoring 10/11/2025 04/13/2025, 025 Disability Screening 12/21/2025 12/21/2024 Family Planning (PISQ) 01/05/2026 01/05/2025 Mammogram 01/22/2026 01/22/2025, 01/08, 01/22/2025, Additional history exists Alcohol/Substance Use Screening 04/13/2026 [...] of upper outer quadrant of right breast HPV DNA, LOW/HIGH RISK Routine 2:20 PM [...] 2 AM EDT 04/06/2025 1:50 PM EDT [facility]S - 04/09/2025 10:21 AM EDT ----- ------- Name: Aurora Ferrara Age/Sex: 44/F : 1980 Unit#: [id number] Attend Dr: Kashmir Freeman MD Re04/06/25 Status: [facility] Location: [facility] Disch: ----- ------- SPEC : [id number] RECD: 04/06/25 STATUS: NELI JOHN NUM: [id number] ROYCE: 04/06/[address]: Kashmir Freeman MD ENTERED: 04/06/250 SP TYPE: Surgical OTHR DR: STAN MARKS [facility] ORDERED: Gross Micro L2, Gross Micro [...] fibrofatty subcutaneous soft tissue without discrete abnormality. Oil Spraying Machine Operator sections are submitted in cassettes A1 -3. B. Received in formalin is a 1.6 cm in greatest dimension portion of fibrofatty soft tissue, sectioned and entirely submitted in cassette B1. (DTL) IHC S/NG Disclaimer NOTE: Unless otherwise stated, all tissue is formalin-fixed and paraffin-embedded. Some or all of the immunohistochemical tests reported herein may have been developed and their performance characteristics determined by [facility]. They have not been cleared or [...] Aurora Ferrara Age/Sex: 44/F : 1980 Unit#: [id number] Attend Dr: Kashmir Freeman MD Re04/06/25 Status: [facility] Location: [facility] Disch: ----- ------- SPEC : [id number] RECD: 04/06/259658 STATUS: NELI JOHN NUM: [id number] ROYCE: 04/06/25112 [facility] DR: Kashmir Freeman MD ENTERED: 04/06/25-5353 SP TYPE: Surgical OTHR DR: STAN MARKS CNM ORDERED: Gross Micro L2, Gross Micro L3 Copies To: Kashmir Freeman MD [facility] Weight Management Program [address] [place] [phone] STAN MARKS CNM [facility] [address] [place] [address] ----- ------- Signed (signature on file) Katharina Duron MD 04/09/25 1021 ----- ------- END OF REPORT us Generic External Data Provider LAB CYTOLOGY HOLLY CHILD Final Result [facility] [address] [place] [phone] [phone] * (ABNORMAL) CBC auto differential (04/02/2025 1:27 PM EDT) White Blood Count 5.1 4.8 - 10.8 X10*3/uL [facility] Red Blood Count 3.99(L) 4.20 - 5.50 X10*6/uL [facility] Hemoglobin 12.2 12.0 - 16.0 g/dl [facility] Hematocrit 35.2(L) 37.0 - 47.0 % [facility] Mean Corpuscular Volume 88.2 80.0 - 98.0 fL [facility] Mean Corpuscular Hemoglobin 30.6 27.0 - 33.0 pg [facility] Mean Corpuscular HGB Conc 34.7 31.0 - 35.0 g/dl [facility] Red Cell Distribution Width 11.8 11.0 - 16.0 % [facility] Platelet Count 252 160 - 400 X10*3/uL [facility] Mean Platelet Volume 9.6 9.4 - 12.3 fL [facility] Neutrophils Percent Auto 65.8 45 - 73 % [facility] Imm Gran Pct Auto 0.2 0.0 - 0.4 % [facility] Lymphocytes Percent Auto 23.1 20 - 40 % [facility] Monocytes Percent Auto 9.1 2 - 11 % [facility] Eosinophils Percent Auto 1.2 0 - 4 % [facility] Basophils Percent Auto 0.6 0 - 2 % [facility] NRBC Pct Auto 0.0 0.0 - 0.2 /100WBC [facility] Neutrophils Absolute Auto 3.3 2.0 - 8.3 x10*3/uL [facility] Imm Gran Abs Auto 0.01 0.00 - 0.03 X10*3/uL [facility] Lymphocytes Absolute Auto 1.2 1.2 - 4.9 X10*3/uL [facility] Monocytes Absolute Auto 0.5 0.1 - 1.2 X10*3/uL [facility] Eosinophils Absolute Auto 0.1 0.0 - 0.4 X10*3/uL [facility] Basophils Absolute Auto 0.0 0.0 - 0.2 X10*3/uL [facility] NRBC Abs Auto 0.000 0.0 - 0.012 X10*3/uL [facility] 04/02/2025 1:27 PM EDT 04/02/2025 2:14 PM EDT us Generic External Data Provider LAB BLOOD ORDERAB LES Final Result Performing Organization Address [facility] Co de Phone Number [facility] [address] [place] [phone] * Partial Thromboplastin Time, Activated (APTT) (04/02/2025 1:27 PM EDT) Partial Thromboplastin Time 33.6 26.7 - 34.1 SEC [facility] 04/02/2025 1:27 PM EDT 04/02/2025 1:47 PM EDT Generic External Data Provider LAB BLOOD ORDERAB LES Final Result Performing Organization Address [facility] Phone Number [facility] [address] [place] [phone] * (ABNORMAL) Prothrombin Time-INR (04/02/2025 1:27 PM EDT) Prothrombin Time 14.0(H) 10.9 - 12.4 SEC [facility] INTERNATIONAL NORM RATIO 1.2(H) 0.9 - 1.1 [facility] Comment:INTERNATIONAL NORMAL IZED RATIO (INR) REFERENCE [...] ORDERAB LES Final Result Performing Organization Address [facility] Co de Phone Number [facility] [address] [place] [phone] * Type and screen (04/02/2025 1:27 PM EDT) Blood Type ON [facility] Antibody Screen NEGATIVE [facility] 04/02/2025 1:27 PM EDT 04/02/2025 1:40 PM EDT Narrative [facility] - 04/02/2025 2:20 PM EDT WITNESSED BY [place].Spec expiration changed by JIMMY on 04/02/25Reason: ANANTH SSSNURSING:Call Blood Bank (ext. [phone]) to band patient on admission.Type and Screen in effect until 2300 on 04/06/25. us Generic External Data Provider LAB BLOOD BANK TE ST ORDERABLES Final Result [facility] [address] [place] [phone] [phone] * (ABNORMAL) Comprehensive Metabolic Panel (04/02/2025 1:27 PM EDT) Sodium 141 135 - 145 mmol/L [facility] Potassium 3.5 3.3 - 5.1 mmol/L [facility] Chloride 106 96 - 108 mmol/L [facility] Carbon Dioxide 27 22 - 29 mmol/L [facility] Anion Gap 12 12 - 20 [facility] Urea Nitrogen (BUN) 17(H) 9 - 16 mg/dL [facility] Creatinine, Serum 0.51 0.5 - 1.4 mg/dL [facility] Creatinine Clr Calc Pharmacy 135.2 [facility] Comment:Provided height and weight: 163.83 cm,70.125 kg.eGFR (calculated from the MDRD study equation) and eCrCl(calculated from the Cockcroft-Gault equation) are based ondifferent parameters and may not yield comparable results.If eCrCl result is absurd, please check patient'sheight/weight. Estimated Glomerular Filt Rate >60 [facility] Comment:Chronic Kidney Disea se: Estimated GFR < 60 mL/min/1.05r1Azsofg Kidney Disease: Estimated GFR < 15 mL/min/1.73m2 Glucose 78 60 - 115 mg/dL [facility] Calcium 9.2 8.4 - 10.2 mg/dL [facility] Bilirubin, Total 0.7 0.0 - 1.0 mg/dL [facility] Aspartate Amino Transferase 25 5 - 31 U/L [facility] Alanine Aminotransferase 24 0 - 31 U/L [facility] Total Protein 6.9 6.5 - 8.0 g/dL [facility] Albumin Level 4.5 3.5 - 5.0 g/dL [facility] Alkaline Phosphatase 72 39 - 117 U/L [facility] 04/02/2025 1:27 PM EDT 04/02/2025 2:14 PM EDT us Generic External Data Provider LAB BLOOD ORDERAB LES Final Result Performing Organization Address City/State/[facility] de Phone Number [facility] [address] [place] [phone] * BI US Breast Limited Right (01/22/2025 11:06 AM EDT) Anatomical Region Laterality Modality Breast Right Ultrasound 01/22/2025 11:0 6 AM EDT Narrative 01/22/2025 11:38 AM EDT [facility] [address] [place] [address] Ultrasound Report Signed Patient: Aurora Ferrara MR#: [id number] : 1980 Acct:[id number] Age/Sex: 44 / F ADM Date: 01/22/25 Loc: HO.MAMMO Attending Dr: Stan Marks CNM Ordering Physician: STAN MARKS CNM Date of Service: 01/22/25 Procedure(s): US breast RT limited Accession Number(s): [id number] cc: STAN MARKS CNM EXAMINATIONS: 1. MM [...] 01/22/25 1135 DD/ 1106 TD/TT: 01/22/25 1120 Mail Processing Equipment Mechanic: Procedure Note Donotuseinterpreter, Image - 01/22/2025 [facility] [address] [place] [address] Ultrasound Report Signed Patient: Aurora Ferrara [facility]#: [id number] : 1980Acct:[id number] Age/Sex: 44 / FADM Date: 01/22/25 Loc: HO.MAMMO Attending Dr: Stan Marks CNM Ordering Physician: STAN MARKS CNM Date of Service: 01/22/25 Procedure(s): US breast RT limited Accession Number(s): [id number] cc: STAN MARKS CNM EXAMINATIONS: 1. MM [...] 01/22/25 1135 DD/ 1106 TD/TT: 01/22/25 1120 Mail Processing Equipment Mechanic: us Stan Marks CNM IMG US PROCEDURES Final R esult * BI Mammogram Diagnostic Tomosynthesis Bilateral (01/22/2025 10:45 AM EDT) Anatomical Region Laterality Modality Breast Bilateral Mammography 01/22/2025 10:4 5 AM EDT Narrative 01/22/2025 11:38 AM EDT [facility] [address] [place] [address] Mammography Report Signed Patient: Aurora Ferrara MR#: [id number] : 1980 Acct:[id number] Age/Sex: 44 / F ADM Date: 01/22/25 Loc: HO.MAMMO Attending Dr: Stan Marks CNM Ordering Physician: STAN MARKS CNM Results: 1 Negative Date of Service: 01/22/25 Follow Up: 1 Year From [facility] Mammogram Procedure(s): MM tomosynthesis diagnostic BI Accession Number(s): [id number] cc: STAN MARKS CNM EXAMINATIONS: 1. MM [...] 01/22/25 1135 DD/ 1045 TD/TT: 01/22/25 1102 Mail Processing Equipment Mechanic: Procedure Note Donotuseinterpreter, Image - 01/22/2025 [facility] [address] [place] [address] Mammography Report Signed Patient: Aurora Ferrara [facility]#: [id number] : 1980Acct:[id number] Age/Sex: 44 / FADM Date: 01/22/25 Loc: NANCIEO Attending Dr: Stan Marks CNM Ordering Physician: STAN MARKSesults: 1 Negative Date of Service: 01/22/25Follow Up: 1 Year From Orig inal Mammogram Procedure(s): MM tomosynthesis diagnostic BI Accession Number(s): [id number] cc: STAN MARKS CNM EXAMINATIONS: 1. MM [...] 01/22/25 1135 DD/ 1045 TD/TT: 01/22/25 1102 Mail Processing Equipment Mechanic: us Stan Marks CNM IMG BI PROCEDURES Final R esult * HPV DNA, Low/High Risk (01/05/2025 2:20 PM EDT) HPV High Risk Negative Negative [facility] HPV Genotype 16 Negative Negative [facility] HPV Genotype 18 Negative Negative [facility] Comment:HPV testing performe d at [facility] (CLIA#[id number]), [address] [place] [address].Testing for HPV was performed using the Aicha [...] KNOWLES LAB BLOOD ORDERABLES Delphine l Result [facility] [address] [place] [phone] * Pap Smear (01/05/2025 2:20 PM EDT) Swab Cervix uteri structure / Unknown 01/05/2025 2:20 PM EDT 01/06/2025 7:35 AM EDT Turner [facility] - 01/19/2025 8:59 AM EDT ----- ------- Name: Aurora Ferrara Age/Sex: 44/F : 1980 Unit#: [id number] Attend Dr: STAN MARKS CNM Re01/05/25 Status: DEP REF Location: [facility] Disch: ----- ------- SPEC : [id number] RECD: 01/06/25 STATUS: NELI ALVAREZRed NUM: [id number] ROYCE: 01/05/25-14[address] [facility] [address]: STAN MARKS CNM ENTERED: 01/06/25 SP TYPE: Pap Smr [facility] DR: ORDERED: Pap Smear Interpretation Satisfactory for [...] and HPV testing will be performed at [facility] (IA #[id number]), [address] [place] [address]. Testing for HPV was performed using the [...] detected. All professional services are performed by [facility] ([address] [place] [address], [place] [address]; ; CLIA #[id number]). The PAP Test is a screening procedure with the inherent possibility of both false negative and false positive results. Results should be interpreted in the context of historic and current clinical findings. Reliability of the PAP Test is enhanced by performing the test on a regular repetitive basis. CONTINUED ON NEXT PAGE ----- ------- Name: Aurora Ferrara Age/Sex: 44/F : 1980 Unit#: [id number] Attend Dr: STAN MARKS CNM Re01/05/25 Status: DEP REF Location: [facility] Disch: ----- ------- SPEC : [id number] RECD: 01/06/25 STATUS: NELI JOHN NUM: [id number] ROYCE: 01/05/25-[address] [facility] [address]: STAN MARKS CNM ENTERED: 01/06/25 SP TYPE: Pap Kamini [facility]URST DR: ORDERED: Pap Smear ----- ------- Signed (signature on file) Master KYRA Mackenzie ([facility]) 01/19/25 0859 ----- ------- END OF REPORT us Stan Marks [facility] LAB CYTOLOGY ORDERABLES F inal Result [facility] [address] [place], [place] [phone] * Lipid Panel, Standard (11/13/2024 9:53 AM EDT) Triglycerides 46 <150 mg/dL [facility] Comment:Desirable Triglyceri de: less than 150 mg/dLBorderline High Triglyceride 150-199 mg/dLHigh Triglyceride: 200-499 mg/dLVery High Triglyceride: greater than or equal to 5OO mg/dL Cholesterol 172 <200 mg/dL [facility] Comment:Desirable Cholestero l: less than 200 mg/dLBorderline High Cholesterol: 200-239 mg/dLHigh Cholesterol: greater than 239 mg/dL LDL Cholesterol Calculated 94 <100 mg/dL [facility] Comment:Desirable LDL: less than 100 mg/dLNear Optimal/Above Optimal LDL: 110- 129 mg/dLBorderline High LDL: 130-159 mg/dLHigh LDL: 160-189 mg/dLVery High LDL: greater than or equal to 190 mg/dL HDL Cholesterol 69 >40 mg/dL [facility] Comment:Desirable HDL: great er than 40 mg/dL Note: This HDL assay may give artificially low results in patients with liver disease. 11/13/2024 9:53 AM EDT 11/13/2024 9:53 AM EDT us Generic External Data Provider LAB BLOOD ORDERAB LES Final Result Performing Organization Address [facility] Co de Phone Number [facility] [address] [place] [phone] [phone] * Hepatitis C Antibody with Reflex to HCV, RNA, Quantitative, Real-Time PCR (04/09/2024 12:15 PM EDT) Hepatitis C Antibody Nonreactive Nonreactive [facility] Comment:Antibodies to HCV no t detected; does not exclude early acuteHCV infection. Blood Venous blood specimen / Unknown 04/09/2024 12:15 PM EDT 04/09/2024 1:17 PM EDT us Magaly Maldonado MD LAB BLOOD ORDERABLES Final Result Performing Organization Address [facility] Co de Phone Number [facility] [address] [place] [phone] * HIV-1/2 Antigen and Antibodies, Fourth Generation, with Reflexes (04/09/2024 12:15 PM EDT) HIV AB/AG Nonreactive Nonreactive [facility] Comment:HIV-1 p24 Ag and/or HIV-1/HIV-2 Ab not detected.A test result that is nonreactive does not exclude thepossibility of exposure to or infection with HIV-1 and/orHIV-2. Nonreactive results in this assay for individualswith prior exposure to HIV-1 and/or HIV-2 may be due toantigen and antibody levels that are below the limit ofdetection of this assay.The [employer] HIV Ag/Ab Combo assay result andsupplemental assay results should be interpreted inconjunction with the patient's clinical presentation,history and other laboratory results. If the results areinconsistent with clinical evidence, additional testing issuggested to confirm the result. Blood Venous blood specimen / Unknown 04/09/2024 12:15 PM EDT 04/09/2024 1:17 PM EDT Magaly Maldonado MD LAB BLOOD ORDERABLES Final Result [facility] [address] [place] [phone] from Last 3 Months or Most Recently Relevant to Health Maintenance Insurance [facility] C3 Care Teams Humidifier Maintenance Worker Relationship Specialty Start Date End Date Magaly Mcrae MD [address] [place] [phone] PCP - General Family Medicine 02/19/18 Anne Marie Reza Sandwich PeddlerVeterinary Laboratory Technician 04/14/25
--- OUTSIDE RECORDS SUMMARY | 2025-04-22 18:12 | XMS_ITS | Encounter Summary ---
Author Organization [employer] Address [address] [facility] [address] [place] [address] Care Team Providers Care Educational Aid Name Role Phone Magaly Mcrae MD Primary Care Provide r Encounter Details Date Type Department Care Team ([facility] st Contact Info) Description 02/13/2024 Telephone [facility] [address] [place], [place] [phone] Magaly Mcrae MD [address] [place], [place] [phone] Social History Tobacco Use Types Packs/Day Years [...] Description 06/23/2025 3:30 PM EST Office Visit [facility] [address] [place] [phone] Magaly Mcrae MD [address] [place] [phone] documented as of this encounter Visit Diagnoses Not on filedocumented in this encounter Additional Health Concerns Assessment Noted Time PHQ-9 Depression Total Score: 11 023 3:07 PM EDT documented as of this encounter Care Teams Educational Aid Relationship Specialty Start Date End Date Magaly Mcrae MD [address] [place] [phone] PCP - General Family Medicine 02/19/18 Anne Marie Reza Mold Shop SupervisorGas Cutting Machine Operator 04/14/25 documented as of this encounter
--- OUTSIDE RECORDS SUMMARY | 2025-04-22 18:12 | XMS_ITS | Encounter Summary ---
Author Organization [facility] Address [address] [place] [address] Care Team Providers Care Test Examiner Name Role Phone Thu Tam MD Primary Care Provider + [phone] Encounter Details Date Type Department Care Team (Late st Contact Info) Description 02/04/2025 Lab Requisition [facility] - Main Lab [address] [place] [phone] Bettina Sanford MD [address] [facility] [address] [place] [phone] Abnormal uterine and vaginal bleeding, unspecified Social [...] No endometrium identified 02/05/2025 1:27 PM EDT [facility] ([facility] Clinical Information Abnormal uterine bleeding [...] Final Result [facility] [address] [place] [address], documented in this encounter Visit Diagnoses Diagnosis Abnormal uterine and vaginal bleeding, unspecified documented in this encounter Care Teams Test Examiner Relationship Specialty Start Date End Date Thu Tam MD [address] [place] [phone] PCP - General Internal Medicine 03/13/24 documented as of this encounter
--- OUTSIDE RECORDS SUMMARY | 2025-04-22 18:12 | XMS_ITS | Encounter Summary ---
Author Organization [employer] Address [address] [facility] 7t [place] [address] Care Team Providers Care Planning Director Name Role Phone Magaly Mcrae MD Primary Care Provide r Reason for Visit * Reason Comments Med Refill Encounter Details Date Type Department Care Team ([facility] st Contact Info) Description 04/17/2025 Refill [facility] [address] [place], [place] [phone] Magaly Mcrae MD [address] [place], [place] [phone] Seasonal allergic rhinitis, unspecified trigger Social History Tobacco Use Types [...] 3:30 PM EST Office Visit [facility] [address] [place] [address] Magaly Mcrae MD [address] [place] [address] documented as of this encounter Visit Diagnoses Diagnosis Seasonal allergic rhinitis, unspecified trigger documented in this encounter Additional Health Concerns Assessment Noted Time PHQ-9 Depression Total Score: 12 025 3:36 PM EST documented as of this encounter Care Teams Planning Director Relationship Specialty Start Date End Date Magaly Mcrae MD [address] [place] [phone] PCP - General Family Medicine 02/19/18 Anne Marie Reza Roller Shop Utility WorkerCutting Machine Fixer 04/14/25 documented as of this encounter
--- OUTSIDE RECORDS SUMMARY | 2025-04-22 18:12 | XMS_ITS | Clinical Summary ---
Author Organization [address] [facility] Address [address] [place] [address] Phone Care Team Providers Care Filtration Plant Operator Name Role Phone Thu Tam MD Primary Care Provider + [phone] Allergies No known active allergies Medications DICLOFENAC [...] Care Team Description 02/04/[address] [facility] - Main Lab [address] [facility] [place] [address] Bettina Sanford MD Abnormal uterine and vaginal bleeding, unspecified 01/29/2025 10:30 AM EDT Consult Orthopedic Surgery - [place] [address] [facility] [address] [place] [address] Dar Taylor MD Knee pain, left (Primary Dx); Old tear of medial meniscus of left knee, unspecified tear type from Last 3 Months Social History Tobacco [...] Depression Screening 06/10/2024 COVID-19 Vaccine (1 - 2024-2 6 season) 2025 Influenza Vaccine (#1) 2025 9, [...] LAB CHEMISTRY METHOD 02/04/2025 5:46 PM EDT [facility] Testosterone, Free 0.1 0.0 - 0.5 ng/dL LAB CHEMISTRY METHOD 02/04/2025 5:46 PM EDT [facility] Testosterone, Bioavailable 2 1 - 9 ng/dL LAB CHEMISTRY METHOD 02/04/2025 5:46 PM EDT [facility] Sex Hormone Binding 148.1 See Comment nmol/L LAB CHEMISTRY METHOD 02/04/2025 5:46 PM EDT [facility] Comment: FEMALES: pre-menopausal 10.8 - [...] g/dL LAB CHEMISTRY METHOD 02/04/2025 5:46 PM EDT [facility] Blood Venous blood specimen / Unknown Venipuncture / Unknown 02/04/2025 11:15 AM EDT 02/04/2025 12:47 PM EDT us Bettina Sanford MD LAB BLOOD ORDERABLES Fin al Result [facility] [address] [place] [address], * Sex hormone binding globulin (02/04/2025 11:15 AM EDT) Pathologist [facility] Sex Hormone Binding 148.1 See Comment nmol/L LAB CHEMISTRY METHOD 02/04/2025 5:46 PM EDT [facility] Comment: FEMALES: pre-menopausal 10.8 - [...] MD LAB BLOOD ORDERABLES Fin al Result [facility] [address] [place] [address], * Progesterone (02/04/2025 11:15 AM EDT) [facility] Progesterone <0.2 ng/mL LAB CHEMISTRY METHOD 02/04/2025 2:58 PM EDT [facility] Comment: PROGESTERONE REFERENCE RANGES (NG/ML) [...] ORDERABLES Fin al Result Performing Organization Address [facility] Co de Phone Number [facility] [address] [place] [address], * Estradiol (02/04/2025 11:15 AM EDT) Estradiol <11 See below pcg/mL LAB CHEMISTRY METHOD 02/04/2025 1:45 PM EDT [facility] Comment: ESTRADIOL REFERENCE RANGES (PG/ML) [...] ORDERABLES Fin al Result Performing Organization Address [facility] Co de Phone Number [facility] [address] [place] [address], * Luteinizing hormone (02/04/2025 11:15 AM EDT) Luteinizing Hormone 14.8 See Comment mIU/mL LAB CHEMISTRY METHOD 02/04/2025 1:45 PM EDT [facility] Blood Venous blood specimen / Unknown Venipuncture / Unknown 02/04/2025 11:15 AM EDT 02/04/2025 12:47 PM EDT Narrative [facility] - 02/04/2025 1:45 PM EDT LH REFERENCE RANGES (MIU/ML) FEMALES NORMALLY MENSTRUATING: FOLLICULAR PHASE 1.9 - 12.8 MIDCYCLE PEAK 22.8 - 76.1 LUTEAL PHASE 0.6 - 13.5 POSTMENOPAUSAL: ON HRT 1.1 - 52.4 UNTREATED 8.6 - 61.8 Bettina Sanford MD LAB BLOOD ORDERABLES Fin al Result Performing Organization Address [facility]/ZIP Co de Phone Number [facility] [address] [place] [address], [place] [phone] * Follicle stimulating hormone (02/04/2025 11:15 AM EDT) Follicle Stimulating Hormone 51.1 See Comment mIU/mL LAB CHEMISTRY METHOD 02/04/2025 1:45 PM EDT [facility] Comment: FSH REFERENCE RANGES (MIU/ML) [...] ORDERABLES Fin al Result Performing Organization Address City/[facility]/ZIP Co de Phone Number [facility] [address] [place] [address], [place] [phone] * Tissue Exam (02/04/2025) Final Diagnosis Endometrial biopsy: Benign endocervical glandular epithelium and inflamed squamous epithelium No endometrium identified 02/05/2025 1:27 PM EDT [facility] Clinical Information Abnormal uterine bleeding 02/05/2025 1:27 PM EDT [facility] Gross Description A. Endometrium, biopsy: Labeled with the patient's name and information. Received in formalin is a 1.1 x 0.8 x 0.2 cm aggregate of irregular pink-red soft tissue fragments admixed with mucoid substance which is submitted in toto in a mesh bag in one cassette, multiple pieces, x 2. LENARD 02/05/2025 1:27 PM EDT [facility] Disclaimer Unless otherwise specified, all tissue is 10% NB formalin fixed and paraffin embedded. 02/05/2025 1:27 PM EDT [facility] Tissue Endometrial structure / Unknown 02/04/2025 02/04/2025 12:36 PM EDT Bettina Sanford MD LAB PATHOLOGY ORDERABLES Final Result [facility] [address] [place] [address], * XR Knee 3 Views Left (01/29/2025 10:17 AM EDT) Anatomical Region Laterality Modality Lower Extremities, Knee Left Computed Radiography Narrative 01/29/2025 10:49 AM EDT X-rays January 29, 2025. Bilateral knee PA weightbearing views. Lateral view of the left knee. [place] view of the left knee. No acute osseous abnormalities. No significant malalignment. Overall good preservation of the articular cartilage. Dar Taylor MD IMG XR PROCEDURES Final Result from Last 3 Months Insurance MEDICAID - [place] Care Teams Filtration Plant Operator Relationship Specialty Start Date End Date Thu Tam MD [address] [place] [phone] PCP - General Internal Medicine 03/13/24
--- OUTSIDE RECORDS SUMMARY | 2025-04-22 18:13 | XMS_ITS | Encounter Summary ---
Author Organization [employer] Address [address] [facility] 7[address] [place] [address] Care Team Providers Care Fire Code Inspector Name Role Phone Magaly Mcrae MD Primary Care Provide r Encounter Details Date Type Department Care Team (Latest Contact Info) Description 04/05/2025 Results Follow-Up [facility] [address] [place], [place] [phone] Diya York CNM [address] [place] [address] Prothrombin Time-INR, Partial Thromboplastin Time, Activated (APTT), [...] Description 06/23/2025 3:30 PM EST Office Visit [facility] [address] [place] [phone] Magaly Mcrae MD [address] [place] [address] documented as of this encounter Visit Diagnoses Not on filedocumented in this encounter Additional Health Concerns Assessment Noted Time PHQ-9 Depression Total Score: 15 025 11:32 AM EDT documented as of this encounter Care Teams Fire Code Inspector Relationship Specialty Start Date End Date Magaly Mcrae MD [address] [place] [phone] PCP - General Family Medicine 02/19/18 Anne Marie Reza Type Copy ExaminerBoot Lace Cutter Machine 04/14/25 documented as of this encounter
--- OUTSIDE RECORDS SUMMARY | 2025-04-22 18:13 | XMS_ITS | Encounter Summary ---
Author Organization [employer] Address [address] [facility] 7 [place] [address] Care Team Providers Care Engineering Aide Name Role Phone Magaly Mcrae MD Primary Care Provide r Reason for Visit * Reason Onset Date Comments Referral 04/02/2025 Encounter Details Date Type Department Care Team ([facility] st Contact Info) Description 04/02/2025 Telephone [facility] [address] [place], [place] [phone] Magaly Mcrae MD [address] [place], [place] [phone] Referral Social History Tobacco Use Types Packs/Day [...] EDT Please place [facility] original referral for eczema however appointment [...] is scheduled for 01/01/2026. Contact pt at [phone] documented in this encounter Plan of Treatment Upcoming Encounters Date Type Department Care Team (Late st Contact Info) Description 06/23/2025 3:30 PM EST Office Visit [facility] [address] [place] [address] Magaly Mcrae MD [address] [place], [place] [phone] documented as of this encounter Visit Diagnoses Not on filedocumented in this encounter Additional Health Concerns Assessment Noted Time PHQ-9 Depression Total Score: 15 025 11:32 AM EDT documented as of this encounter Care Teams Engineering Aide Relationship Specialty Start Date End Date Magaly Mcrae MD [address] [place] [address] PCP - General Family Medicine 02/19/18 Anne Marie Reza Ornamental Ironworking SupervisorBusiness Applications Analyst 04/14/25 documented as of this encounter
== END 2025-04-22 16:02 | disposition home or self-care (01) ==
LOC: HO.HBS 14:55
PROVIDERS: PCP Advanced Practice Midwife; Visit Provider Nurse Practitioner
DX: Z98.84 Bariatric surgery status (principal); Z98.890 Other specified postprocedural states
CPT/HCPCS: 99024

== ENCOUNTER → 2025-04-22 14:54 | Outpatient (BNVA) | payer MEDICAID, SELFPAY | PROVIDERS: PCP Advanced Practice Midwife; Visit Provider Nurse Practitioner | DX: Z48.815 Encounter for surgical aftercare following surgery on the digestive system (principal); Z98.84 Bariatric surgery status; Z98.890 Other specified postprocedural states | CPT/HCPCS: 99212 ==

== ENCOUNTER 2025-04-28 10:28 | Outpatient (AMB) | payer MEDICAID, SELFPAY ==
--- NOTE | 2025-04-28 10:52 | MHC.OFFVISWM ---
VS Expanded 04/28/25 11:36 BP 109/53 L Blood Pressure Location Rt brachial Blood Pressure Position Sitting Pulse 64 Pulse Source Pulse Oximeter Temp 98.4 F Temperature Source Temporal Artery Scan Pulse Oximetry 100 Oxygen Delivery Method Room Air Intake Visit Reasons: OV Panniculectomy 04/06/25 Allergies No Known Allergies Allergy (Verified 04/28/25 12:10) Medication List - Last Reconciled 04/28/25 by EJ Leon bupropion HCl SR 200 mg PO QAM cholecalciferol (vitamin D3) (Vitamin D3) 25 mcg PO DAILY docusate sodium (Colace) 100 mg PO DAILY fluticasone propionate 50 mcg/actuation 1 spray intranasal BID hydroxyzine HCl 25 mg PO BID PRN [id number]-vit K 45 mg iron- 800 mcg-120 mcg (Bariatric Multivitamins) 1 cap PO .daily in evening ondansetron 4 mg PO Q12H sumatriptan succinate 25 mg PO QID PRN trazodone 25 - 50 mg PO BEDTIME PRN HPI Comments Details: 44 year old woman s/p panniculectomy 04/06/2025. Pt called to report green drainage this morning. I had her come in earlier for her appt. She denies fevers at home but feels acoustic intelligence specialist abdomen. Thinks pain has increased in abdomen. Noted green drainage yesterday morning, but thinks a smell has been present since Saturday. She continues on abx as directed. Drain output has been 5-10cc per day. [facility] Medical History Postgastrectomy malabsorption GERD (gastroesophageal reflux disease) Depression Hx of bipolar disorder Panic attack Surgical History History of sleeve gastrectomy History of endometrial ablation H/O parathyroidectomy History of esophagogastroduodenoscopy (EGD) History of tonsillectomy and adenoidectomy Hx of tubal ligation Family History Mother Heart disease Arthritis Father Liver disease Herniated disc Brother No problems noted. Brother No problems noted. Brother No problems noted. Sister Diabetes Sister Migraine Sister HIV disease Sister No problems noted. Sister No problems noted. Daughter Asthma Son No problems noted. Paternal Aunt Breast cancer Social History Household Members: Family Housing: Apartment Are you a primary health care coordinator to a significant other at home: No Do you presently have visiting nurse or other home services: No Alcohol intake: never Patient Tobacco Use Status: Former Tobacco user Tobacco use type: Cigarette Smoked in Last 30 Days: No Use of substances other than those prescribed or required for medical reasons: No Substance Use Type: Marijuana Advance Directives: No Advance Directives Information Provided: Yes Patient : No service: No Current occupational status: unemployed Female Reproductive History Menstrual Age of Menarche: 13 Physical Exam Vital Signs: Last Vital Signs Temp 98.4 F 04/28/25 11:36 Pulse 64 04/28/25 11:36 BP 109/53 L 04/28/25 11:36 Pulse Ox 100 04/28/25 11:36 Oxygen Delivery Method Room Air 04/28/25 11:36 Const General: cooperative, comfortable and no acute distress Orientation/consciousness: patient oriented x3 GI Other: soft, panniculectomy incision and umbilicus appear to be healing well without erythema or open areas, drainage in bulb is green with slight but not overwhelming odor Neuro General: patient oriented x3 Assessment & Plan Assessment & Plan (1) S/P panniculectomy: Code(s): Z98.890 - Other specified postprocedural states Category: Surgical (2) Surgical site reaction: Code(s): T81.9XXA - Unspecified complication of procedure, initial encounter Plan Pt seen and examined with Dr Tan. He requests the following- amylase bilirubin albumin glucose cultures CT PO/IV contrast CBC/CMP CT scan cannot be done today so pt sent to ER. Fluid cx/studies taken in office from drain bulb. Will follow up on ER studies. In the meantime pt directed to continue abx and follow liquid diet meal plan given by Dr Tan via text. Orders: Orders Body Fluid Cult + GS Today Z98.890 - Other specified postprocedural states Amylase Peritoneal Fluid Today Z98.890 - Other specified postprocedural states Glucose Peritoneal Fluid Today Z98.890 - Other specified postprocedural states Albumin Peritoneal Fluid Today Z98.890 - Other specified postprocedural states Other Ref Test - Misc Today Z98.890 - Other specified postprocedural states Creatinine Peritoneal Fluid Today Z98.890 - Other specified postprocedural states
[2025-04-28 11:36] VITALS: BP 109/53; PULSE 64; TEMP 36.9; O2SAT 100
--- OUTSIDE RECORDS SUMMARY | 2025-04-28 20:18 | XMS_ITS | Clinical Summary ---
Author Organization [employer] Address [address] [facility] [address] [place] [address] Care Team Providers Care Environmental Engineering Aide Name Role Phone Magaly Mcrae [...] Plan (02/07/2024 1:00 PM EDT): Refer to Tax Collection Coordinator. Chronic pain of left knee 10/24/2022 Assessment [...] seek help PLAN: 1. Follow up with [facility]: Not recommended for follow-up 2. Patient goal is to obtain her meds and become stable. 3. Behavioral Recommendations a. Ind. Therapy b. Med. Management c. Coping skills provided. Assessment & Plan (10/25/2022 4:25 PM EDT): Counseling done BN referral I will start her again on Wellbutrin 150mg daily Hypercalcemia 04/10/2012 Encounters Date Type Department Care Team Description 04/28/2025 Orders Only GENERIC EXTERNAL DATA DEPARTMENT Provider, Generic External Data 04/17/2025 Refill [facility] [address] [place] [address] Magaly Mcrae MD Seasonal allergic rhinitis, unspecified trigger 04/14/2025 Telephone [facility] [address] [place] [address] Magaly Mcrae MD Care Coordination (ICP Care Plan) 04/13/2025 3:15 PM EST Office Visit [facility] [address] [place] [address] Magaly Mcrae MD Encounter for preventive care (Primary Dx); Dietary counseling; Exercise counseling; Post-surgical hypoparathyroidism; Irritant contact dermatitis, unspecified trigger 04/13/2025 Travel 04/12/[address] [address] Magaly Mcrae MD Chart Prep 04/06/2025 Orders Only GENERIC EXTERNAL DATA DEPARTMENT Provider, Generic External Data 04/06/2025 Patient Outreach [facility] [address] [place], [place] [phone] Magaly Mcrae MD Pre-visit Planning ([facility] unable to reach [facility]) 04/05/[address] [address] Magaly Mcrae MD tammy recall 04/05/2025 Results Follow-Up [address] [address] Stan Marks CNM Prothrombin Time-INR, Partial Thromboplastin Time, Activated (APTT), CBC auto differential, Additional followed-up results: 2 04/02/2025 Orders Only [address] [address] Magaly Mcrae MD Eczema, unspecified type (Primary Dx) 04/02/[address] [address] Magaly Mcrae MD Referral 02/15/2025 Patient Outreach [address] [address] Magaly Mcrae MD Care Coordination ([facility]/W Efrain Torres [facility] f/u, program graduation) 01/28/2025 Patient Outreach [address] [address] Magaly Mcrae MD Care Management ([facility]- F/U call) 01/27/2025 Patient Outreach [address] [address] Magaly Mcrae MD Care Coordination ([facility] Efrain Torres, [facility] f/u call) from Last 3 Months Immunizations Immunization Administration [...] t he electric, gas, oil or water [employer] threatened to shut off services in your [...] Description 06/23/2025 3:30 PM EST Office Visit [facility] [address] [place] [address] Magaly Mcrae MD [address] [place] [address] Health Maintenance Due Date Last Done Comments HPV Vaccines (1 - 3-dose series) 11/29/1995 Hepatitis B Vaccines (1 of 3 - 19+ 3-dose series) 11/29/1999 DTaP/Tdap/Td Vaccines (2 - Td or Tdap) 02/02/2024 02/01/2014, 02/26/2008 COVID-19 Vaccine ( - 2024- season) 2025 Influenza Vaccine (#1) 2025 9, [...] Procedure Name Priority Date/Time Associated Diagnosis Comments CT ABDOMEN PELVIS W CONTRAST Routine 04/28/2025 4:35 PM EST LACTIC ACID Routine 04/28/2025 12:47 PM EST HCG, TOTAL, QN Routine 04/28/2025 12:36 PM EST LIPASE Routine 04/28/2025 12:36 PM EST MAGNESIUM Routine 04/28/2025 12:36 PM EST BASIC METABOLIC PANEL Routine 04/28/2025 12:36 PM EST HEPATIC FUNCTION PANEL Routine 12:36 PM EST CBC WITH AUTO DIFFERENTIAL Routine 04/28/2025 12:36 PM EST GRAM STAIN RESULT (NON ORDERABLE) Routine 04/28/2025 10:28 AM EST GROSS AND MICROSCOPIC LEVEL 2 Routine 04/06/2025 [...] Recently Relevant to Health Maintenance Results * CT Abdomen Pelvis w/ Contrast (04/28/2025 4:35 PM EST) Anatomical Region Laterality Modality Body, Pelvis, Abdomen Computed T omography 04/28/2025 4:35 PM EST Narrative 04/28/2025 5:04 PM EST [address] [address] [address] Scan Report Signed Patient: Aurora Ferrara MR#: [id number] : 1980 Acct:[id number] Age/Sex: 44 / F ADM Date: 04/28/25 Loc: HO.ED Attending Dr: Ordering Physician: Luisa Joyner Date of Service: 04/28/25 Procedure(s): CT abdomen pelvis w IV con Accession Number(s): [id number] cc: Luisa Joyner; [facility] Report Number: [id number]: Total DLP = 475.00 mGy-cm Reason for Exam: panniculectomy 04/06/2025 green drainage EXAMINATION: CT ABDOMEN AND PELVIS WITH CONTRAST CLINICAL INFORMATION: Panniculectomy 04/06/2025, green drainage. COMPARISON: 11/16/2021. TECHNIQUE: Multidetector volumetric images were obtained from the superior aspect of the liver through the pubic symphysis following administration 85 mL of Omnipaque 350 intravenous contrast. Sagittal and coronal reformatted images were obtained on the technologist's workstation. Oral contrast: Yes This CT examination was performed using dose optimization techniques as appropriate, variously including the following: *Automated exposure control *Adjustment of mA and/or kV according to patient size (this includes techniques or standardized protocols for targeted exams where dose is matched to indication/reason for exam; i.e. extremities or head) *Use of iterative reconstruction technique FINDINGS: LUNG BASES: The lung bases are clear. The heart size is normal. There are no effusions. The GE junction appears normal. LIVER, GALLBLADDER, AND BILIARY TREE: The liver is normal in size, shape, and attenuation. No focal hepatic lesion or biliary ductal dilatation is present. The gallbladder is unremarkable with no evidence of radiopaque gallstones, gallbladder wall thickening, or obvious pericholecystic inflammatory changes. PANCREAS: Unremarkable. SPLEEN: Unremarkable. ADRENAL GLANDS: Unremarkable. KIDNEYS AND URETERS: The kidneys are normal in size, shape, and attenuation. No hydronephrosis, hydroureter, or calculi seen. No perinephric stranding. There is a subcentimeter cyst in the upper pole of the left kidney. BLADDER: Unremarkable. 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 Stomach otherwise normal. Duodenal sweep appears normal. Small bowel is normal in caliber and course. Contrast material is present throughout the colon and rectum. The colon, appendix, and rectum appear normal. No wall thickening or inflammation. ABDOMINAL WALL: There is expected subcutaneous stranding in the anterior abdominal wall from panniculectomy. There is a surgical drain in place in the anterior abdominal wall, terminating overlying the right oblique musculature. There is a 6 mm AP diameter fluid collection just superior and right of the umbilicus, just anterior to the rectus sheath within the subcutaneous fat. No peripheral enhancement to suggest this is an abscess. This lies above the surgical drain. LYMPH NODES: No abnormal lymphadenopathy present. VASCULAR: Normal. PELVIC VISCERA: The uterus is retroverted inverted and retroflexed. There is a left fundal 1.0 cm fibroid present. There is no adnexal mass. Trace free pelvic fluid in the cul-de-sac is felt to be physiologic. OSSEOUS STRUCTURES: No suspicious lytic or blastic bone lesion. Normal appearance. CT/CT abdomen pelvis w IV con IMPRESSION: 1. No acute findings in the abdomen or pelvis. 2. Subcutaneous stranding in the anterior subcutaneous abdominal fat related to recent panniculectomy. A surgical drain is in place in the inferior anterior abdominal wall. Just superior and right lateral of the umbilicus, just anterior to the rectus sheath, there is a 6 mm nonenhancing fluid collection which may represent a seroma. This does not appear definitively drainable. 3. Additional ancillary findings as discussed in the body of the report. Electronically signed by: Todd Nguyễn MD 04/28/2025 05:02 PM [facility] Dictated By: Todd Nguyễn MD Signed By: <Electronically signed by Todd Nguyễn MD in OV> 04/28/25 1702 DD/ 1635 TD/TT: 04/28/25 1647 Debarker Operator: Procedure Note Donotuseinterpreter, Image - 04/28/[address] [address] [address] Scan Report Signed Patient: Aurora Ferrara [facility]#: [id number] : 1980Acct:[id number] Age/Sex: 44 / FADM Date: 04/28/25 Loc: HO.ED Attending Dr: Ordering Physician: Luisa Joyner Date of Service: 04/28/25 Procedure(s): CT abdomen pelvis w IV con Accession Number(s): [id number] cc: Luisa Joyner; [facility] Report Number: [id number]: Total DLP = 475.00 mGy-cm Reason for Exam: panniculectomy 04/06/2025 green drainage EXAMINATION: CT ABDOMEN AND PELVIS WITH CONTRAST CLINICAL INFORMATION: Panniculectomy 04/06/2025, green drainage. COMPARISON: 11/16/2021. TECHNIQUE: Multidetector volumetric images were obtained from the superior aspect of the liver through the pubic symphysis following administration 85 mL of Omnipaque 350 intravenous contrast. Sagittal and coronal reformatted images were obtained on the technologist's workstation. Oral contrast: Yes This CT examination was performed using dose optimization techniques as appropriate, variously including the following: *Automated exposure control *Adjustment of mA and/or kV according to patient size (this includes techniques or standardized protocols for targeted exams where dose is matched to indication/reason for exam; i.e. extremities or head) *Use of iterative reconstruction technique FINDINGS: LUNG BASES: The lung bases are clear. The heart size is normal. There are no effusions. The GE junction appears normal. LIVER, GALLBLADDER, AND BILIARY TREE: The liver is normal in size, shape, and attenuation. No focal hepatic lesion or biliary ductal dilatation is present. The gallbladder is unremarkable with no evidence of radiopaque gallstones, gallbladder wall thickening, or obvious pericholecystic inflammatory changes. PANCREAS: Unremarkable. SPLEEN: Unremarkable. ADRENAL GLANDS: Unremarkable. KIDNEYS AND URETERS: The kidneys are normal in size, shape, and attenuation. No hydronephrosis, hydroureter, or calculi seen. No perinephric stranding. There is a subcentimeter cyst in the upper pole of the left kidney. BLADDER: Unremarkable. 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 Stomach otherwise normal. Duodenal sweep appears normal. Small bowel is normal in caliber and course. Contrast material is present throughout the colon and rectum. The colon, appendix, and rectum appear normal. No wall thickening or inflammation. ABDOMINAL WALL: There is expected subcutaneous stranding in the anterior abdominal wall from panniculectomy. There is a surgical drain in place in the anterior abdominal wall, terminating overlying the right oblique musculature. There is a 6 mm AP diameter fluid collection just superior and right of the umbilicus, just anterior to the rectus sheath within the subcutaneous fat. No peripheral enhancement to suggest this is an abscess. This lies above the surgical drain. LYMPH NODES: No abnormal lymphadenopathy present. VASCULAR: Normal. PELVIC VISCERA: The uterus is retroverted inverted and retroflexed. There is a left fundal 1.0 cm fibroid present. There is no adnexal mass. Trace free pelvic fluid in the cul-de-sac is felt to be physiologic. OSSEOUS STRUCTURES: No suspicious lytic or blastic bone lesion. Normal appearance. CT/CT abdomen pelvis w IV con IMPRESSION: 1. No acute findings in the abdomen or pelvis. 2. Subcutaneous stranding in the anterior subcutaneous abdominal fat related to recent panniculectomy. A surgical drain is in place in the inferior anterior abdominal wall. Just superior and right lateral of the umbilicus, just anterior to the rectus sheath, there is a 6 mm nonenhancing fluid collection which may represent a seroma. This does not appear definitively drainable. 3. Additional ancillary findings as discussed in the body of the report. Electronically signed by: Todd Nguyễn MD 04/28/2025 05:02 PM EST Dictated By: Todd Nguyễn MD Signed By: <Electronically signed by Todd Nguyễn MD in OV> 04/28/25 1702 DD/ 1635 TD/TT: 04/28/25 1647 Debarker Operator: [facility] External Provider IMG CT PROCEDURES Final Result * Lactic Acid (04/28/2025 12:47 PM EST) Pathologist [facility] Lactic Acid 1.3 0.5 - 2.0 mmol/L [facility] 04/28/2025 12:4 7 PM EST 04/28/2025 12:51 PM EST Generic External Data Provider LAB BLOOD ORDERAB LES Final Result [facility] [address] [place] [phone] * CBC auto differential (04/28/2025 12:36 PM EST) Only the most recent of2 resultswithin the time period is included. [facility] White Blood Count 4.9 4.8 - 10.8 X10*3/uL [facility] Red Blood Count 4.34 4.20 - 5.50 X10*6/uL [facility] Hemoglobin 13.5 12.0 - 16.0 g/dl [facility] Hematocrit 39.7 37.0 - 47.0 % [facility] Mean Corpuscular Volume 91.5 80.0 - 98.0 fL [facility] Mean Corpuscular Hemoglobin 31.1 27.0 - 33.0 pg [facility] Mean Corpuscular HGB Conc 34.0 31.0 - 35.0 g/dl [facility] Red Cell Distribution Width 11.3 11.0 - 16.0 % [facility] Platelet Count 280 160 - 400 X10*3/uL [facility] Mean Platelet Volume 9.5 9.4 - 12.3 fL [facility] Neutrophils Percent Auto 64.6 45 - 73 % [facility] Imm Gran Pct Auto 0.2 0.0 - 0.4 % [facility] Lymphocytes Percent Auto 25.9 20 - 40 % [facility] Monocytes Percent Auto 7.9 2 - 11 % [facility] Eosinophils Percent Auto 1.0 0 - 4 % [facility] Basophils Percent Auto 0.4 0 - 2 % [facility] NRBC Pct Auto 0.0 0.0 - 0.2 /100WBC [facility] Neutrophils Absolute Auto 3.2 2.0 - 8.3 x10*3/uL [facility] Imm Gran Abs Auto 0.01 0.00 - 0.03 X10*3/uL [facility] Lymphocytes Absolute Auto 1.3 1.2 - 4.9 X10*3/uL [facility] Monocytes Absolute Auto 0.4 0.1 - 1.2 X10*3/uL [facility] Eosinophils Absolute Auto 0.1 0.0 - 0.4 X10*3/uL [facility] Basophils Absolute Auto 0.0 0.0 - 0.2 X10*3/uL [facility] NRBC Abs Auto 0.000 0.0 - 0.012 X10*3/uL [facility] 04/28/2025 12:3 6 PM EST 04/28/2025 12:40 PM EST us Generic External Data Provider LAB BLOOD ORDERAB LES Final Result [facility] [address] [place] [address] [phone] * hCG, Total, Quantitative (04/28/2025 12:36 PM EST) HCG Quantitative 4 mIU/mL [facility] Comment:Weeks post LMP Appro ximate hCG(Last Menstrual Period) Range (mIU/ml)3 - 4 weeks 9 - 1304 - 5 weeks 75 - 2,6005 - 6 weeks 850 - 20,8006 - 7 weeks 4000 - 100,2007 - 12 weeks 11,500 - 289,71849 - 16 weeks 18,300 - 137,78336 - 29 weeks (2nd trimester) 1,400 - 53,60142 - 41 weeks (3rd trimester) 940 - 60,000The [place]es B- hCG assay is used for the early detection ofpregnancy; it cannot be used to diagnose any conditionunrelated to . If a B-hCG level is not supportedby the clinical evidence, results should be confirmed by analternative method (qualitative urine hCG, for example). 04/28/2025 12:3 6 PM EST 04/28/2025 12:40 PM EST Generic External Data Provider LAB BLOOD ORDERAB LES Final Result Performing Organization Address [facility] Co de Phone Number [facility] [address] [place] [phone] * Magnesium (04/28/2025 12:36 PM EST) Pathologist [facility] Magnesium 2.2 1.6 - 2.6 mg/dL [facility] 04/28/2025 12:3 6 PM EST 04/28/2025 12:40 PM EST Generic External Data Provider LAB BLOOD ORDERAB LES Final Result Performing Organization Address [facility] Phone Number [facility] [address] [place] [phone] * Lipase (04/28/2025 12:36 PM EST) Lipase 28 8 - 78 U/L [facility] 04/28/2025 12:3 6 PM EST 04/28/2025 12:40 PM EST Generic External Data Provider LAB BLOOD ORDERAB LES Final Result Performing Organization Address [facility] Phone Number [facility] [address] [place] [phone] * (ABNORMAL) Hepatic Function Panel (04/28/2025 12:36 PM EST) Bilirubin, Total 0.7 0.0 - 1.0 mg/dL [facility] Bilirubin, Direct 0.2 0.0 - 0.5 mg/dL [facility] Aspartate Amino Transferase 29 5 - 31 U/L [facility] Alanine Aminotransferase 48(H) 0 - 31 U/L [facility] Total Protein 7.7 6.5 - 8.0 g/dL [facility] Albumin Level 4.8 3.5 - 5.0 g/dL [facility] Alkaline Phosphatase 84 39 - 117 U/L [facility] 04/28/2025 12:3 6 PM EST 04/28/2025 12:40 PM EST us Generic External Data Provider LAB BLOOD ORDERAB LES Final Result [facility] [address] [place] [address] [phone] * (ABNORMAL) Basic Metabolic Panel (04/28/2025 12:36 PM EST) Sodium 139 135 - 145 mmol/L [facility] Potassium 3.8 3.3 - 5.1 mmol/L [facility] Chloride 104 96 - 108 mmol/L [facility] Carbon Dioxide 28 22 - 29 mmol/L [facility] Anion Gap 11(L) 12 - 20 [facility] Urea Nitrogen (BUN) 16 9 - 16 mg/dL [facility] Creatinine, Serum 0.53 0.5 - 1.4 mg/dL [facility] Creatinine Clr Calc Pharmacy 121.8 [facility] Comment:Provided height and weight: 165.1 cm,67.132 kg.eGFR (calculated from the MDRD study equation) and eCrCl(calculated from the Cockcroft-Gault equation) are based ondifferent parameters and may not yield comparable results.If eCrCl result is absurd, please check patient'sheight/weight. Estimated Glomerular Filt Rate >60 [facility] Comment:Chronic Kidney Disea se: Estimated GFR < 60 mL/min/1.87e4Nazqvr Kidney Disease: Estimated GFR < 15 mL/min/1.73m2 Glucose 83 60 - 115 mg/dL [facility] Calcium 9.7 8.4 - 10.2 mg/dL [facility] 04/28/2025 12:3 6 PM EST 04/28/2025 12:40 PM EST Generic External Data Provider LAB BLOOD ORDERAB LES Final Result Performing Organization Address [facility]/ZIP Co de Phone Number [facility] [address] [place] [phone] * Gram Stain Result (04/28/2025 10:28 AM EST) 04/28/2025 10:2 8 AM EST 04/28/2025 12:13 PM EST Comment:Abdom Fld [facility] - 04/28/2025 3:41 PM EST FLUID FROM DRAIN COLLECTED DURING PANNICULECTOMY Gram stain results: No polys 4+ Gram-negative rods 1+ Gram-positive cocci Specimen Source: Abdominal Fluid Generic External Data Provider HISTORICAL/NON OR DERABLE LABS Final Result Performing Organization Address [facility] Co de Phone Number [facility] [address] [place] [phone] * Gross and Microscopic Level 2 (04/06/2025 11:22 AM EDT) 04/06/2025 11:2 2 AM EDT 04/06/2025 1:50 PM EDT [facility] - 04/09/2025 10:21 AM EDT ----- ------- Name: Aurora Ferrara Age/Sex: 44/F : 1980 Unit#: [id number] Attend Dr: Kashmir Freeman MD Re04/06/25 Status: [facility] Location: [facility] Disch: ----- ------- SPEC : [id number] RECD: 04/06/25 STATUS: NELI JOHN NUM: [id number] ROYCE: 04/06/[address] [facility] [address]: Kashmir Freeman MD ENTERED: 04/06/25 SP TYPE: Surgical OTHR DR: [facility] ORDERED: Gross Micro L2, Gross Micro L3 [...] fibrofatty subcutaneous soft tissue without discrete abnormality. Electrocardiograph Repairer sections are submitted in cassettes A1 -3. B. Received in formalin is a 1.6 cm in greatest dimension portion of fibrofatty soft tissue, sectioned and entirely submitted in cassette B1. (DTL) IHC S/NG Disclaimer NOTE: Unless otherwise stated, all tissue is formalin-fixed and paraffin-embedded. Some or all of the immunohistochemical tests reported herein may have been developed and their performance characteristics determined by [facility]. They have not been cleared or [...] Aurora Ferrara Age/Sex: 44/F : 1980 Unit#: [id number] Attend Dr: Kashmir Freeman MD Re04/06/25 Status: [facility] Location: [facility] Disch: ----- ------- SPEC : [id number] RECD: 04/06/25 STATUS: NELI JOHN NUM: [id number] ROYCE: 04/06/[address] [facility] [address]: Kashmir Freeman MD ENTERED: 04/06/25 SP TYPE: Surgical OTHR DR: STAN MARKS [facility] ORDERED: Gross Micro L2, Gross Micro L3 Copies To: Kashmir Freeman MD [facility] Weight Management Program [address] [place] [phone] STAN MARKS CNM [address] [id number] ----- ------- Signed (signature on file) Katharina Duron MD 04/09/25 1021 ----- ------- END OF REPORT Generic External Data Provider LAB CYTOLOGY ORDE RABLES Final Result Performing Organization Address [facility] de Phone Number [facility] [address] [place] [phone] * Partial Thromboplastin Time, Activated (APTT) (04/02/2025 1:27 PM EDT) Partial Thromboplastin Time 33.6 26.7 - 34.1 SEC [facility] 04/02/2025 1:27 PM EDT 04/02/2025 1:47 PM EDT Generic External Data Provider LAB BLOOD ORDERAB LES Final Result Performing Organization Address [facility] de Phone Number [facility] [address] [place] [phone] * (ABNORMAL) Prothrombin Time-INR (04/02/2025 1:27 PM EDT) Prothrombin Time 14.0(H) 10.9 - 12.4 SEC [facility] INTERNATIONAL NORM RATIO 1.2(H) 0.9 - 1.1 [facility] Comment:INTERNATIONAL NORMAL IZED RATIO (INR) REFERENCE [...] ORDERAB LES Final Result Performing Organization Address [facility] Co de Phone Number [facility] [address] [place] [address] [phone] * Type and screen (04/02/2025 1:27 PM EDT) Pathologist [facility] Blood Type ON [facility] Antibody Screen NEGATIVE [facility] 04/02/2025 1:27 PM EDT 04/02/2025 1:40 PM EDT Narrative [facility] - 04/02/2025 2:20 PM EDT WITNESSED BY [place].Spec expiration changed by JIMMY on 04/02/25Reason: PAT SSSNURSING:Call Blood Bank (ext. [phone]) to band patient on admission.Type and Screen in effect until 2300 on 04/06/25. Generic External Data Provider LAB BLOOD BANK TE ST ORDERABLES Final Result Performing Organization Address [facility] Co de Phone Number [facility] [address] [place] [address] [phone] * (ABNORMAL) Comprehensive Metabolic Panel (04/02/2025 1:27 PM EDT) Sodium 141 135 - 145 mmol/L [facility] Potassium 3.5 3.3 - 5.1 mmol/L [facility] Chloride 106 96 - 108 mmol/L [facility] Carbon Dioxide 27 22 - 29 mmol/L [facility] Anion Gap 12 12 - 20 [facility] Urea Nitrogen (BUN) 17(H) 9 - 16 mg/dL [facility] Creatinine, Serum 0.51 0.5 - 1.4 mg/dL [facility] Creatinine Clr Calc Pharmacy 135.2 [facility] Comment:Provided height and weight: 163.83 cm,70.125 kg.eGFR (calculated from the MDRD study equation) and eCrCl(calculated from the Cockcroft-Gault equation) are based ondifferent parameters and may not yield comparable results.If eCrCl result is absurd, please check patient'sheight/weight. Estimated Glomerular Filt Rate >60 [facility] Comment:Chronic Kidney Disea se: Estimated GFR < 60 mL/min/1.52l5Enbuzk Kidney Disease: Estimated GFR < 15 mL/min/1.73m2 Glucose 78 60 - 115 mg/dL [facility] Calcium 9.2 8.4 - 10.2 mg/dL [facility] Bilirubin, Total 0.7 0.0 - 1.0 mg/dL [facility] Aspartate Amino Transferase 25 5 - 31 U/L [facility] Alanine Aminotransferase 24 0 - 31 U/L [facility] Total Protein 6.9 6.5 - 8.0 g/dL [facility] Albumin Level 4.5 3.5 - 5.0 g/dL [facility] Alkaline Phosphatase 72 39 - 117 U/L [facility] 04/02/2025 1:27 PM EDT 04/02/2025 2:14 PM EDT us Generic External Data Provider LAB BLOOD ORDERAB LES Final Result [facility] [address] [place], [place] [phone] * BI US Breast Limited Right (01/22/2025 11:06 AM EDT) Anatomical Region Laterality Modality Breast Right Ultrasound 01/22/2025 11:0 6 AM EDT Narrative 01/22/2025 11:38 AM EDT [facility] [address] [place] [address] Dr. Wesley, [place] [address] Ultrasound Report Signed Patient: Aurora Ferrara MR#: [id number] : 1980 Acct:[id number] Age/Sex: 44 / F ADM Date: 01/22/25 Loc: HO.MAMMO Attending Dr: Stan Marks CNM Ordering Physician: STAN MARKS CNM Date of Service: 01/22/25 Procedure(s): US breast RT limited Accession Number(s): [id number] cc: STAN MARKS CNM EXAMINATIONS: 1. MM [...] 01/22/25 1135 DD/ 1106 TD/TT: 01/22/25 1120 Debarker Operator: Procedure Note Donotuseinterpreter, Image - 01/22/2025 [facility] [address] Wesley, [place] [address] Ultrasound Report Signed Patient: Aurora Ferrara [facility]#: [id number] : 1980Acct:[id number] Age/Sex: 44 / FADM Date: 01/22/25 Loc: HO.MAMMO Attending Dr: Stan Marks CNM Ordering Physician: STAN MARKS CNM Date of Service: 01/22/25 Procedure(s): US breast RT limited Accession Number(s): [id number] cc: STAN MARKS CNM EXAMINATIONS: 1. MM [...] 01/22/25 1135 DD/ 1106 TD/TT: 01/22/25 1120 Debarker Operator: us Stan KNOWLES IM US PROCEDURES Final R esult * HPV DNA, Low/High Risk (01/05/2025 2:20 PM EDT) HPV High Risk Negative Negative [facility] HPV Genotype 16 Negative Negative [facility] HPV Genotype 18 Negative Negative [facility] Comment:HPV testing performe d at [facility] (CLIA#[id number]), [address] [place] [address].Testing for HPV was performed using the [employer]ich[employer] AIRANA 6800system. The presence of HPV in the [...] Stan Marks CNM LAB BLOOD ORDERABLES Delphine dillard Result [facility] [address] [place] [phone] * Pap Smear (01/05/2025 2:20 PM EDT) Swab Cervix uteri structure / Unknown 01/05/2025 2:20 PM EDT 01/06/2025 7:35 AM EDT Narrative [facility] - 01/19/2025 8:59 AM EDT ----- ------- Name: Aurora Ferrara Age/Sex: 44/F : 1980 Unit#: [id number] Attend Dr: STAN MARKS CNM Re01/05/25 Status: JOSE SHERMAN Location: [facility] Disch: ----- ------- SPEC : [id number] RECD: 01/06/25 STATUS: NELI JOHN NUM: [id number] ROYCE: 01/05/25-[address] [facility] [address]: STAN MARKS CNM ENTERED: 01/06/25 SP TYPE: Pap Smr [facility] DR: ORDERED: Pap Smear Interpretation Satisfactory for [...] and HPV testing will be performed at [facility] (CLIA #[id number]), [address] [place] [address]. Testing for HPV was performed using the [employer] Sand 90 system. The presence of HPV in the [...] detected. All professional services are performed by [facility] ([address] [place] [address]; ; CLIA #[id number]). The PAP Test is a screening procedure with the inherent possibility of both false negative and false positive results. Results should be interpreted in the context of historic and current clinical findings. Reliability of the PAP Test is enhanced by performing the test on a regular repetitive basis. CONTINUED ON NEXT PAGE ----- ------- Name: Aurora Ferrara Age/Sex: 44/F : 1980 Unit#: [id number] Attend Dr: STAN MARKS CNM Re01/05/25 Status: DEP REF Location: [facility] Disch: ----- ------- SPEC : [id number] RECD: 01/06/25 STATUS: NELI ALVAREZRed NUM: [id number] ROYCE: 01/05/25-[address] [facility] [address]: STAN MARKS CNM ENTERED: 01/06/25 SP TYPE: Pap Kamini [facility]URST DR: ORDERED: Pap Smear ----- ------- Signed (signature on file) KYRA Edwards (ASCP) 01/19/25 0859 ----- ------- END OF REPORT Stan Marks CNM LAB CYTOLOGY ORDERABLES F inal Result [facility] [address] [place] [phone] * Lipid Panel, Standard (11/13/2024 9:53 AM EDT) Triglycerides 46 <150 mg/dL [facility] Comment:Desirable Triglyceri de: less than 150 mg/dLBorderline High Triglyceride 150-199 mg/dLHigh Triglyceride: 200-499 mg/dLVery High Triglyceride: greater than or equal to 5OO mg/dL Cholesterol 172 <200 mg/dL [facility] Comment:Desirable Cholestero l: less than 200 mg/dLBorderline High Cholesterol: 200-239 mg/dLHigh Cholesterol: greater than 239 mg/dL LDL Cholesterol Calculated 94 <100 mg/dL [facility] Comment:Desirable LDL: less than 100 mg/dLNear Optimal/Above Optimal LDL: 110- 129 mg/dLBorderline High LDL: 130-159 mg/dLHigh LDL: 160-189 mg/dLVery High LDL: greater than or equal to 190 mg/dL HDL Cholesterol 69 >40 mg/dL [facility] Comment:Desirable HDL: great er than 40 mg/dL Note: This HDL assay may give artificially low results in patients with liver disease. 11/13/2024 9:53 AM EDT 11/13/2024 9:53 AM EDT us Generic External Data Provider LAB BLOOD ORDERAB LES Final Result Performing Organization Address [facility]/State/ZIP Co de Phone Number [facility] [address] [place] [phone] * Hepatitis C Antibody with Reflex to HCV, RNA, Quantitative, Real-Time PCR (04/09/2024 12:15 PM EDT) Hepatitis C Antibody Nonreactive Nonreactive [facility] Comment:Antibodies to HCV no t detected; does not exclude early acuteHCV infection. Blood Venous blood specimen / Unknown 04/09/2024 12:15 PM EDT 04/09/2024 1:17 PM EDT us Magaly Maldonado MD LAB BLOOD ORDERABLES Final Result Performing Organization Address [facility] Co de Phone Number [facility] [address] [place] [address] [phone] * HIV-1/2 Antigen and Antibodies, Fourth Generation, with Reflexes (04/09/2024 12:15 PM EDT) HIV AB/AG Nonreactive Nonreactive [facility] Comment:HIV-1 p24 Ag and/or HIV-1/HIV-2 Ab not detected.A test result that is nonreactive does not exclude thepossibility of exposure to or infection with HIV-1 and/orHIV-2. Nonreactive results in this assay for individualswith prior exposure to HIV-1 and/or HIV-2 may be due toantigen and antibody levels that are below the limit ofdetection of this assay.The [place] [place] HIV Ag/Ab Combo assay result andsupplemental assay results should be interpreted inconjunction with the patient's clinical presentation,history and other laboratory results. If the results areinconsistent with clinical evidence, additional testing issuggested to confirm the result. Blood Venous blood specimen / Unknown 04/09/2024 12:15 PM EDT 04/09/2024 1:17 PM EDT us Magaly Maldonado MD LAB BLOOD ORDERABLES Final Result Performing Organization Address [facility] Co de Phone Number [facility] [address] [place] [phone] from Last 3 Months or Most Recently Relevant to Health Maintenance Insurance [facility] C3 Care Teams Environmental Engineering Aide Relationship Specialty Start Date End Date Magaly Mcrae MD [address] [place] [phone] PCP - General Family Medicine 02/19/18 Anne Marie Reza Isolation WasherTram Driver 04/14/25
--- OUTSIDE RECORDS SUMMARY | 2025-04-28 20:18 | XMS_ITS | Encounter Summary ---
Author Organization [employer] Address [address] [facility] [address] [place] [address] Care Team Providers Care Armature Winder Helper Repair Name Role Phone Magaly Mcrae MD Primary Care Provide r Encounter Details Date Type Department Care Team ([facility] st Contact Info) Description 02/13/2024 Telephone [facility] [address] [place], [place] [phone] Magaly Mcrae MD [address] [place], [place] [phone] Social History Tobacco Use Types Packs/Day Years [...] Description 06/23/2025 3:30 PM EST Office Visit [facility] [address] [place] [phone] Magaly Mcrae MD [address] [place] [phone] documented as of this encounter Visit Diagnoses Not on filedocumented in this encounter Additional Health Concerns Assessment Noted Time PHQ-9 Depression Total Score: 11 023 3:07 PM EDT documented as of this encounter Care Teams Armature Winder Helper Repair Relationship Specialty Start Date End Date Magaly Mcrae MD [address] [place] [phone] PCP - General Family Medicine 02/19/18 Anne Marie Reza Frame Welder Cargo Utility TrailersMolder Offbearer 04/14/25 documented as of this encounter
--- OUTSIDE RECORDS SUMMARY | 2025-04-28 20:19 | XMS_ITS | Encounter Summary ---
Author Organization [employer] Address [address] [facility] 7t [place] [address] Care Team Providers Care After School Teacher Name Role Phone Magaly Mcrae MD Primary Care Provide r Encounter Details Date Type Department Care Team (Latest Contact Info) Description 04/05/2025 Results Follow-Up [facility] [address] [place], [place] [phone] Diya York CNM [address] [place] [address] Prothrombin Time-INR, Partial Thromboplastin Time, Activated (APTT), [...] 3:30 PM EST Office Visit [facility] [address] [place] [phone] Magaly Mcrae MD [address] [place] [address] documented as of this encounter Visit Diagnoses Not on filedocumented in this encounter Additional Health Concerns Assessment Noted Time PHQ-9 Depression Total Score: 15 025 11:32 AM EDT documented as of this encounter Care Teams After School Teacher Relationship Specialty Start Date End Date Magaly Mcrae MD [address] [place] [phone] PCP - General Family Medicine 02/19/18 Anne Marie Reza TaxonomistMilker Machine 04/14/25 documented as of this encounter
--- OUTSIDE RECORDS SUMMARY | 2025-04-28 20:19 | XMS_ITS | Encounter Summary ---
Author Organization [employer] [facility] Address [address] [facility] [address] [place] [address] Care Team Providers Care Junior Legal Secretary Name Role Phone Magaly Mcrae MD Primary Care Provide r Encounter Details Date Type Department Care Team (Late st Contact Info) Description 04/28/2025 Orders Only GENERIC EXTERNAL DATA [...] Description 06/23/2025 3:30 PM EST Office Visit [facility] [address] [place], [place] [phone] Magaly Mcrae MD [address] [place] [address] documented as of this encounter Procedures Procedure Name Priority Date/Time Associated Diagnosis Comments CT ABDOMEN PELVIS W CONTRAST Routine 04/28/2025 4:35 PM EST LACTIC ACID Routine 04/28/2025 12:47 PM EST CBC WITH AUTO DIFFERENTIAL Routine 04/28/2025 12:36 PM EST HCG, TOTAL, QN Routine 04/28/2025 12:36 PM EST MAGNESIUM Routine 04/28/2025 12:36 PM EST LIPASE Routine 04/28/2025 12:36 PM EST HEPATIC FUNCTION PANEL Routine 04/28/2025 12:36 PM EST BASIC METABOLIC PANEL Routine 04/28/2025 12:36 PM EST GRAM STAIN RESULT (NON ORDERABLE) Routine 04/28/2025 10:28 AM EST documented in this encounter Results * CT Abdomen Pelvis w/ Contrast (04/28/2025 4:35 PM EST) Anatomical Region Laterality Modality Body, Pelvis, Abdomen Computed T omography 04/28/2025 4:35 PM EST Narrative 04/28/2025 5:04 PM EST [address] [address] [address] Scan Report Signed Patient: Aurora Ferrara MR#: [id number] : 1980 Acct:[id number] Age/Sex: 44 / F ADM Date: 04/28/25 Loc: HO.ED Attending Dr: Ordering Physician: Luisa Joyner Date of Service: 04/28/25 Procedure(s): CT abdomen pelvis w IV con Accession Number(s): [id number] cc: Luisa Joyner; STAN MARKS [facility] Report Number: [id number]: Total DLP = 475.00 mGy-cm Reason for [...] 04/28/25 1702 DD/ 1635 TD/TT: 04/28/25 1647 Oncology Pharmacist: Procedure Note Donotuseinterpreter, Image - 04/28/[address] [address] [address] Scan Report Signed Patient: Aurora Ferrara [facility]#: [id number] : 1980Acct:[id number] Age/Sex: 44 / FADM Date: 04/28/25 Loc: HO.ED Attending Dr: Ordering Physician: Luisa Joyner Date of Service: 04/28/25 Procedure(s): CT abdomen pelvis w IV con Accession Number(s): [id number] cc: Luisa Joyner; STAN MARKS [facility] Report Number: [id number]: Total DLP = 475.00 mGy-cm Reason for [...] 04/28/25 1702 DD/ 1635 TD/TT: 04/28/25 1647 Oncology Pharmacist: [facility] External Provider IMG CT PROCEDURES Final Result * Lactic Acid (04/28/2025 12:47 PM EST) Lactic Acid 1.3 0.5 - 2.0 mmol/L [facility] 04/28/2025 12:4 7 PM EST 04/28/2025 12:51 PM EST Generic External Data Provider LAB BLOOD ORDERAB LES Final Result Performing Organization Address City/[facility]/ZIP Co de Phone Number [facility] [address] [place] [phone] * hCG, Total, Quantitative (04/28/2025 12:36 PM EST) HCG Quantitative 4 mIU/mL [facility] Comment:Weeks post LMP Appro ximate hCG(Last Menstrual Period) Range (mIU/ml)3 - 4 weeks 9 - 1304 - 5 weeks 75 - 2,6005 - 6 weeks 850 - 20,8006 - 7 weeks 4000 - 100,2007 - 12 weeks 11,500 - 289,88984 - 16 weeks 18,300 - 137,20419 - 29 weeks (2nd trimester) 1,400 - 53,24323 - 41 weeks (3rd trimester) 940 - 60,000The Hernandes B-hCG assay is used for the early detection ofpregnancy; it cannot be used to diagnose any conditionunrelated to . If a B-hCG level is not supportedby the clinical evidence, results should be confirmed by analternative method (qualitative urine hCG, for example). 04/28/2025 12:3 6 PM EST 04/28/2025 12:40 PM EST us Generic External Data Provider LAB BLOOD ORDERAB LES Final Result Performing Organization Address City/[facility]/ZIP Co de Phone Number [facility] [address] [place] [phone] * Lipase (04/28/2025 12:36 PM EST) Lipase 28 8 - 78 U/L [facility] 04/28/2025 12:3 6 PM EST 04/28/2025 12:40 PM EST us Generic External Data Provider LAB BLOOD ORDERAB LES Final Result Performing Organization Address City/[facility] Co de Phone Number [facility] [address] [place] [phone] * Magnesium (04/28/2025 12:36 PM EST) Magnesium 2.2 1.6 - 2.6 mg/dL [facility] 04/28/2025 12:3 6 PM EST 04/28/2025 12:40 PM EST Generic External Data Provider LAB BLOOD ORDERAB LES Final Result Performing Organization Address [facility] de Phone Number [facility] [address] [place] [phone] * (ABNORMAL) Basic Metabolic Panel (04/28/2025 12:36 PM EST) Sodium 139 135 - 145 mmol/L [facility] Potassium 3.8 3.3 - 5.1 mmol/L [facility] Chloride 104 96 - 108 mmol/L [facility] Carbon Dioxide 28 22 - 29 mmol/L [facility] Anion Gap 11(L) 12 - 20 [facility] Urea Nitrogen (BUN) 16 9 - 16 mg/dL [facility] Creatinine, Serum 0.53 0.5 - 1.4 mg/dL [facility] Creatinine Clr Calc Pharmacy 121.8 [facility] Comment:Provided height and weight: 165.1 cm,67.132 kg.eGFR (calculated from the MDRD study equation) and eCrCl(calculated from the Cockcroft-Gault equation) are based ondifferent parameters and may not yield comparable results.If eCrCl result is absurd, please check patient'sheight/weight. Estimated Glomerular Filt Rate >60 [facility] Comment:Chronic Kidney Disea se: Estimated GFR < 60 mL/min/1.15k3Agxqij Kidney Disease: Estimated GFR < 15 mL/min/1.73m2 Glucose 83 60 - 115 mg/dL [facility] Calcium 9.7 8.4 - 10.2 mg/dL [facility] 04/28/2025 12:3 6 PM EST 04/28/2025 12:40 PM EST Generic External Data Provider LAB BLOOD ORDERAB LES Final Result Performing Organization Address [facility] Co de Phone Number [facility] [address] [place] [phone] * (ABNORMAL) Hepatic Function Panel (04/28/2025 12:36 PM EST) Pathologist [facility] Bilirubin, Total 0.7 0.0 - 1.0 mg/dL [facility] Bilirubin, Direct 0.2 0.0 - 0.5 mg/dL [facility] Aspartate Amino Transferase 29 5 - 31 U/L [facility] Alanine Aminotransferase 48(H) 0 - 31 U/L [facility] Total Protein 7.7 6.5 - 8.0 g/dL [facility] Albumin Level 4.8 3.5 - 5.0 g/dL [facility] Alkaline Phosphatase 84 39 - 117 U/L [facility] 04/28/2025 12:3 6 PM EST 04/28/2025 12:40 PM EST us Generic External Data Provider LAB BLOOD ORDERAB LES Final Result Performing Organization Address [facility] Co de Phone Number [facility] [address] [place] [phone] * CBC auto differential (04/28/2025 12:36 PM EST) Pathologist [facility] White Blood Count 4.9 4.8 - 10.8 X10*3/uL [facility] Red Blood Count 4.34 4.20 - 5.50 X10*6/uL [facility] Hemoglobin 13.5 12.0 - 16.0 g/dl [facility] Hematocrit 39.7 37.0 - 47.0 % [facility] Mean Corpuscular Volume 91.5 80.0 - 98.0 fL [facility] Mean Corpuscular Hemoglobin 31.1 27.0 - 33.0 pg [facility] Mean Corpuscular HGB Conc 34.0 31.0 - 35.0 g/dl [facility] Red Cell Distribution Width 11.3 11.0 - 16.0 % [facility] Platelet Count 280 160 - 400 X10*3/uL [facility] Mean Platelet Volume 9.5 9.4 - 12.3 fL [facility] Neutrophils Percent Auto 64.6 45 - 73 % [facility] Imm Gran Pct Auto 0.2 0.0 - 0.4 % [facility] Lymphocytes Percent Auto 25.9 20 - 40 % [facility] Monocytes Percent Auto 7.9 2 - 11 % [facility] Eosinophils Percent Auto 1.0 0 - 4 % [facility] Basophils Percent Auto 0.4 0 - 2 % [facility] NRBC Pct Auto 0.0 0.0 - 0.2 /100WBC [facility] Neutrophils Absolute Auto 3.2 2.0 - 8.3 x10*3/uL [facility] Imm Gran Abs Auto 0.01 0.00 - 0.03 X10*3/uL [facility] Lymphocytes Absolute Auto 1.3 1.2 - 4.9 X10*3/uL [facility] Monocytes Absolute Auto 0.4 0.1 - 1.2 X10*3/uL [facility] Eosinophils Absolute Auto 0.1 0.0 - 0.4 X10*3/uL [facility] Basophils Absolute Auto 0.0 0.0 - 0.2 X10*3/uL [facility] NRBC Abs Auto 0.000 0.0 - 0.012 X10*3/uL [facility] 04/28/2025 12:3 6 PM EST 04/28/2025 12:40 PM EST us Generic External Data Provider LAB BLOOD ORDERAB LES Final Result Performing Organization Address [facility] Co de Phone Number [facility] [address] [place] [address] [phone] * Gram Stain Result (04/28/2025 10:28 AM EST) 04/28/2025 10:2 8 AM EST 04/28/2025 12:13 PM EST Comment:Abdom Fld Narrative [facility] - 04/28/2025 3:41 PM EST FLUID FROM DRAIN COLLECTED DURING PANNICULECTOMY Gram stain results: No polys 4+ Gram-negative rods 1+ Gram-positive cocci Specimen Source: Abdominal Fluid us Generic External Data Provider HISTORICAL/NON OR DERABLE LABS Final Result Performing Organization Address [facility] de Phone Number [facility] [address] [place] [phone] documented in this encounter Visit Diagnoses Not on filedocumented in this encounter Additional Health Concerns Assessment Noted Time PHQ-9 Depression Total Score: 12 025 3:36 PM EST documented as of this encounter Care Teams Junior Legal Secretary Relationship Specialty Start Date End Date Magaly Mcrae MD [address] [place] [phone] PCP - General Family Medicine 02/19/18 Anne Marie Reza Crozer OperatorDjango Developer 04/14/25 documented as of this encounter
--- OUTSIDE RECORDS SUMMARY | 2025-04-28 20:19 | XMS_ITS | Clinical Summary ---
Author Organization 175 [facility] Address [address] [place] [address] Phone Care Team Providers Care Wafer Abrading Machine Tender Name Role Phone Thu Tam MD Primary Care Provider + [phone] Allergies No known active allergies Medications DICLOFENAC [...] Department Care Team Description 02/04/2025 Lab Requisition [facility] - Main Lab [address] [facility] [place] [address] Bettina Sanford MD Abnormal uterine and vaginal bleeding, unspecified 01/29/2025 10:30 AM EDT Consult Orthopedic Surgery - [place] [address] [facility] [address] [place] [address] Dar Taylor MD Knee pain, [...] LAB CHEMISTRY METHOD 02/04/2025 5:46 PM EDT [facility] Testosterone, Free 0.1 0.0 - 0.5 ng/dL LAB CHEMISTRY METHOD 02/04/2025 5:46 PM EDT [facility] Testosterone, Bioavailable 2 1 - 9 ng/dL LAB CHEMISTRY METHOD 02/04/2025 5:46 PM EDT [facility] Sex Hormone Binding 148.1 See Comment nmol/L LAB CHEMISTRY METHOD 02/04/2025 5:46 PM EDT [facility] Comment: FEMALES: pre-menopausal 10.8 [...] LAB CHEMISTRY METHOD 02/04/2025 5:46 PM EDT [facility] Blood Venous blood specimen / Unknown Venipuncture / Unknown 02/04/2025 11:15 AM EDT 02/04/2025 12:47 PM EDT us Bettina Sanford MD LAB BLOOD ORDERABLES Fin al Result [facility] [address] [place] [address], * Sex hormone binding globulin (02/04/2025 11:15 AM EDT) Pathologist [facility] Sex Hormone Binding 148.1 See Comment nmol/L LAB CHEMISTRY METHOD 02/04/2025 5:46 PM EDT [facility] Comment: FEMALES: pre-menopausal 10.8 [...] MD LAB BLOOD ORDERABLES Fin al Result [facility] [address] [place] [address], * Progesterone (02/04/2025 11:15 AM EDT) [facility] Progesterone <0.2 ng/mL LAB CHEMISTRY METHOD 02/04/2025 2:58 PM EDT [facility] Comment: PROGESTERONE REFERENCE RANGES [...] 11:15 AM EDT 02/04/2025 12:47 PM EDT eBttina Sanford MD LAB BLOOD ORDERABLES Fin al Result Performing Organization Address [facility] Co de Phone Number [facility] [address] [place] [address], * Estradiol (02/04/2025 11:15 AM EDT) Estradiol <11 See below pcg/mL LAB CHEMISTRY METHOD 02/04/2025 1:45 PM EDT [facility] Comment: ESTRADIOL REFERENCE RANGES [...] ORDERABLES Fin al Result Performing Organization Address [facility] Co de Phone Number [facility] [address] [place] [address], * Luteinizing hormone (02/04/2025 11:15 AM EDT) Luteinizing Hormone 14.8 See Comment mIU/mL LAB CHEMISTRY METHOD 02/04/2025 1:45 PM EDT [facility] Blood Venous blood specimen / Unknown Venipuncture / Unknown 02/04/2025 11:15 AM EDT 02/04/2025 12:47 PM EDT Narrative [facility] - 02/04/2025 1:45 PM EDT LH REFERENCE RANGES (MIU/ML) FEMALES NORMALLY MENSTRUATING: FOLLICULAR PHASE 1.9 - 12.8 MIDCYCLE PEAK 22.8 - 76.1 LUTEAL PHASE 0.6 - 13.5 POSTMENOPAUSAL: ON HRT 1.1 - 52.4 UNTREATED 8.6 - 61.8 Bettina Sanford MD LAB BLOOD ORDERABLES Fin al Result Performing Organization Address [facility]/ZIP Co de Phone Number [facility] [address] [place] [address], [place] [phone] * Follicle stimulating hormone (02/04/2025 11:15 AM EDT) Follicle Stimulating Hormone 51.1 See Comment mIU/mL LAB CHEMISTRY METHOD 02/04/2025 1:45 PM EDT [facility] Comment: FSH REFERENCE RANGES [...] ORDERABLES Fin al Result Performing Organization Address City/[facility]/ZIP Co de Phone Number [facility] [address] [place] [address], [place] [phone] * Tissue Exam (02/04/2025) Final Diagnosis Endometrial biopsy: Benign endocervical glandular epithelium and inflamed squamous epithelium No endometrium identified 02/05/2025 1:27 PM EDT [facility] Clinical Information Abnormal uterine bleeding 02/05/2025 1:27 PM EDT [facility] Gross Description A. Endometrium, biopsy: Labeled with the patient's name and information. Received in formalin is a 1.1 x 0.8 x 0.2 cm aggregate of irregular pink-red soft tissue fragments admixed with mucoid substance which is submitted in toto in a mesh bag in one cassette, multiple pieces, x 2. LENARD 02/05/2025 1:27 PM EDT [facility] Disclaimer Unless otherwise specified, all tissue is 10% NB formalin fixed and paraffin embedded. 02/05/2025 1:27 PM EDT [facility] Tissue Endometrial structure / Unknown 02/04/2025 02/04/2025 12:36 PM EDT Bettina Sanford MD LAB PATHOLOGY ORDERABLES Final Result [facility] [address] [place] [address], * XR Knee 3 Views Left (01/29/2025 10:17 AM EDT) Anatomical Region Laterality Modality Lower Extremities, Knee Left Computed Radiography Narrative 01/29/2025 10:49 AM EDT X-rays January 29, 2025. Bilateral knee PA weightbearing views. Lateral view of the left knee. Vale view of the left knee. No acute osseous abnormalities. No significant malalignment. Overall good preservation of the articular cartilage. Dar Taylor MD IMG XR PROCEDURES Final Result from Last 3 Months Insurance MEDICAID - [place] Care Teams Wafer Abrading Machine Tender Relationship Specialty Start Date End Date Thu Tam MD [address] [place] [phone] PCP - General Internal Medicine 03/13/24
--- OUTSIDE RECORDS SUMMARY | 2025-04-28 20:19 | XMS_ITS | Encounter Summary ---
Author Organization [facility] Address [address] [place] [address] Care Team Providers Care R D Engineer Name Role Phone Thu Tam MD Primary Care Provider + [phone] Encounter Details Date Type Department Care Team (Late st Contact Info) Description 02/04/[address] [facility] - Main Lab [address] [place] [phone] Bettina Sanford MD [address] [facility] [address] [place] [phone] Abnormal uterine and vaginal bleeding, unspecified Social [...] No endometrium identified 02/05/2025 1:27 PM EDT [facility] Clinical Information Abnormal uterine bleeding 02/05/2025 1:27 PM EDT [facility] Gross Description A. Endometrium, biopsy: Labeled with the patient's name and information. Received in formalin is a 1.1 x 0.8 x 0.2 cm aggregate of irregular pink-red soft tissue fragments admixed with mucoid substance which is submitted in toto in a mesh bag in one cassette, multiple pieces, x 2. LENARD 02/05/2025 1:27 PM EDT [facility] Disclaimer Unless otherwise specified, all tissue is 10% NB formalin fixed and paraffin embedded. 02/05/2025 1:27 PM EDT [facility] Tissue Endometrial structure / Unknown 02/04/2025 02/04/2025 12:36 PM EDT us Bettina Sanford MD LAB PATHOLOGY ORDERABLES Final Result [facility] [address] [place] [address], documented in this encounter Visit Diagnoses Diagnosis Abnormal uterine and vaginal bleeding, unspecified documented in this encounter Care Teams R D Engineer Relationship Specialty Start Date End Date Thu Tam MD [address] [place] [phone] PCP - General Internal Medicine 03/13/24 documented as of this encounter
--- OUTSIDE RECORDS SUMMARY | 2025-04-28 20:19 | XMS_ITS | Encounter Summary ---
Author Organization [employer] Address [address] [facility] 7 [place] [address] Care Team Providers Care Broadcasting Equipment Mechanic Name Role Phone Magaly Mcrae MD Primary Care Provide r Reason for Visit * Reason Onset Date Comments Referral 04/02/2025 Encounter Details Date Type Department Care Team ([facility] st Contact Info) Description 04/02/2025 Telephone [facility] [address] [place], [place] [phone] Magaly Mcrae MD [address] [place], [place] [phone] Referral Social History Tobacco Use Types Packs/Day [...] EDT Please place derm [facility], original referral for eczema however [...] is scheduled for 01/01/2026. Contact pt at [phone] documented in this encounter Plan of Treatment Upcoming Encounters Date Type Department Care Team (Late st Contact Info) Description 06/23/2025 3:30 PM EST Office Visit [facility] [address] [place] [address] Magaly Mcrae MD [address] [place], [place] [phone] documented as of this encounter Visit Diagnoses Not on filedocumented in this encounter Additional Health Concerns Assessment Noted Time PHQ-9 Depression Total Score: 15 025 11:32 AM EDT documented as of this encounter Care Teams Broadcasting Equipment Mechanic Relationship Specialty Start Date End Date Magaly Mcrae MD [address] [place] [address] PCP - General Family Medicine 02/19/18 Anne Marie Reza Flitch HangerAssociate Professor Of Surgery 04/14/25 documented as of this encounter
== END 2025-04-28 12:06 | disposition home or self-care (01) ==
LOC: HO.HBS 10:28
PROVIDERS: PCP Advanced Practice Midwife; Visit Provider Physician Assistant Surgical
DX: Z98.890 Other specified postprocedural states (principal); T81.9XXA Unspecified complication of procedure, initial encounter
CPT/HCPCS: 99024

== ENCOUNTER 2025-04-28 10:28 | Outpatient (REF) | payer MEDICAID, SELFPAY ==
[2025-04-29 07:23] LABS: Albumin Peritoneal Fluid 1.0
[2025-04-29 07:24] LABS: Creatinine Peritoneal Fluid 1.3
== END 2025-04-28 10:29 | disposition home or self-care (01) ==
LOC: HO.LAB 10:28
PROVIDERS: PCP Advanced Practice Midwife; Visit Provider Physician Assistant Surgical
DX: Z98.890 Other specified postprocedural states (principal); T81.9XXA Unspecified complication of procedure, initial encounter
CPT/HCPCS: 82042; 82150; 82570; 82945; 87070; 87073; 87077; 87186; 87205; 99212

== ENCOUNTER 2025-04-28 11:52 | Emergency (ER) | payer MEDICAID, SELFPAY ==
--- NOTE | ~2025-04-28 | CT_ITS ---
EXAMINATION: CT ABDOMEN AND PELVIS WITH CONTRAST CLINICAL INFORMATION: Panniculectomy 04/06/2025, green drainage. COMPARISON: 11/16/2021. TECHNIQUE: Multidetector volumetric images were obtained from the superior aspect of the liver through the pubic symphysis following administration 85 mL of Omnipaque 350 intravenous contrast. Sagittal and coronal reformatted images were obtained on the technologist's workstation. Oral contrast: Yes This CT examination was performed using dose optimization techniques as appropriate, variously including the following: *Automated exposure control *Adjustment of mA and/or kV according to patient size (this includes techniques or standardized protocols for targeted exams where dose is matched to indication/reason for exam; i.e. extremities or head) *Use of iterative reconstruction technique FINDINGS: LUNG BASES: The lung bases are clear. The heart size is normal. There are no effusions. The GE junction appears normal. LIVER, GALLBLADDER, AND BILIARY TREE: The liver is normal in size, shape, and attenuation. No focal hepatic lesion or biliary ductal dilatation is present. The gallbladder is unremarkable with no evidence of radiopaque gallstones, gallbladder wall thickening, or obvious pericholecystic inflammatory changes. PANCREAS: Unremarkable. SPLEEN: Unremarkable. ADRENAL GLANDS: Unremarkable. KIDNEYS AND URETERS: The kidneys are normal in size, shape, and attenuation. No hydronephrosis, hydroureter, or calculi seen. No perinephric stranding. There is a subcentimeter cyst in the upper pole of the left kidney. BLADDER: Unremarkable. 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 Stomach otherwise normal. Duodenal sweep appears normal. Small bowel is normal in caliber and course. Contrast material is present throughout the colon and rectum. The colon, appendix, and rectum appear normal. No wall thickening or inflammation. ABDOMINAL WALL: There is expected subcutaneous stranding in the anterior abdominal wall from panniculectomy. There is a surgical drain in place in the anterior abdominal wall, terminating overlying the right oblique musculature. There is a 6 mm AP diameter fluid collection just superior and right of the umbilicus, just anterior to the rectus sheath within the subcutaneous fat. No peripheral enhancement to suggest this is an abscess. This lies above the surgical drain. LYMPH NODES: No abnormal lymphadenopathy present. VASCULAR: Normal. PELVIC VISCERA: The uterus is retroverted inverted and retroflexed. There is a left fundal 1.0 cm fibroid present. There is no adnexal mass. Trace free pelvic fluid in the cul-de-sac is felt to be physiologic. OSSEOUS STRUCTURES: No suspicious lytic or blastic bone lesion. Normal appearance. CT/CT abdomen pelvis w IV con IMPRESSION: 1. No acute findings in the abdomen or pelvis. 2. Subcutaneous stranding in the anterior subcutaneous abdominal fat related to recent panniculectomy. A surgical drain is in place in the inferior anterior abdominal wall. Just superior and right lateral of the umbilicus, just anterior to the rectus sheath, there is a 6 mm nonenhancing fluid collection which may represent a seroma. This does not appear definitively drainable. 3. Additional ancillary findings as discussed in the body of the report. Electronically signed by: Todd Nguyễn MD 04/28/2025 05:02 PM KRISTINA RICHARDS
[2025-04-28 12:07] VITALS: BP 100/54; PULSE 58; RESP 16; TEMP 36.6; O2SAT 100; BMI 24.6
--- NOTE | 2025-04-28 12:07 | ED.ABDPAIN ---
HPI - Abdominal Pain General Chief Complaint: General Medical Stated Complaint: Bariatrics sent pt here for CT Time Seen by Provider: 04/28/25 12:53 Source: patient Mode of arrival: ambulatory Limitations: no limitations History of Present Illness ED Provider: Dr. Mock HPI narrative: 44-year-old female recent surgery with Dr. Boles with panniculectomy on 04/06 presents to ER today for a green drainage from the SHARYN drain. Patient was evaluated at the bariatric clinic. She was sent here for blood work and CT imaging no new pain no fever. Patient does have postop pain in the epigastric region and around the SHARYN drain site. However patient stated these pain has not changed since the surgery. Denies any nausea or vomiting. Related Data Home Medications ?Medication ?Instructions ?Recorded ?Confirmed fluticasone propionate 50 1 spray intranasal BID 04/11/22 04/28/25 mcg/actuation nasal spray,suspension hydroxyzine HCl 25 mg tablet 25 mg PO BID PRN attention deficit 12/24/22 04/28/25 hyperactivity disorder sumatriptan succinate 25 mg tablet 25 mg PO QID PRN Migraine Headache 12/24/22 04/28/25 bupropion HCl 200 mg tablet,12 hr 200 mg PO QAM 03/29/25 04/28/25 sustained-release trazodone 50 mg tablet 25 - 50 mg PO BEDTIME PRN insomnia 03/29/25 04/28/25 Previous Rx's ?Medication ?Instructions ?Recorded cholecalciferol (vitamin D3) 25 25 mcg PO DAILY #90 caps 10/03/23 mcg (1,000 unit) capsule (Vitamin D3) gxymjemw-[id number] 45 mg-folic 1 cap PO .daily in evening #90 caps 04/13/24 acid 800 mcg-vit K 120 mcg capsule (Bariatric Multivitamins) docusate sodium 100 mg capsule 100 mg PO DAILY #90 caps 03/24/25 (Colace) ondansetron 4 mg disintegrating 4 mg PO Q12H nausea and vomiting 03/24/25 tablet #20 tabs Allergies Allergy/AdvReac Type Severity Reaction Status Date / Time No Known Allergies Allergy Verified 04/28/25 12:10 Review of Systems Review of Systems Pertinent review of systems as mentioned in HPI. All other system otherwise negative. PMFSH Past Medical History [facility] Narrative: Gastric surgery, panniculectomy Medical History Postgastrectomy malabsorption GERD (gastroesophageal reflux disease) Depression Hx of bipolar disorder Panic attack Surgical History History of sleeve gastrectomy History of endometrial ablation H/O parathyroidectomy History of esophagogastroduodenoscopy (EGD) History of tonsillectomy and adenoidectomy Hx of tubal ligation Family History Family History Mother Heart disease Arthritis Father Liver disease Herniated disc Brother No problems noted. Brother No problems noted. Brother No problems noted. Sister Diabetes Sister Migraine Sister HIV disease Sister No problems noted. Sister No problems noted. Daughter Asthma Son No problems noted. Paternal Aunt Breast cancer Social History Social History Household Members: Family Housing: Apartment Are you a primary child caregiver to a significant other at home: No Do you presently have visiting nurse or other home services: No Alcohol intake: never Patient Tobacco Use Status: Former Tobacco user Tobacco use type: Cigarette Smoked in Last 30 Days: No Use of substances other than those prescribed or required for medical reasons: No Substance Use Type: Marijuana Advance Directives: No Advance Directives Information Provided: Yes Patient : No service: No Current occupational status: unemployed Physical Exam ED Exam Exam: General: Pleasant, no distress, interacting appropriately Head: Normacephalic, atraumatic ENT: oral mucosa moist, neck supple, no tracheal deviation Cardiovascular: regular rate, regular rhythm, no murmurs, rubbing, gallops Respiratory: CTAB, no wheeze, rales, rhonchi Gastrointestinal: Soft, non distended, slight tenderness around incision site, incision site does not appear to be erythematous. No signs of pus drainage Neurological: Awake and alert, no facial droop noted Skin: Warm and dry Psychiatric: Appropriate mood and thoughts Vital Signs: Vital Signs - 24 hr 04/28/25 12:07 04/28/25 17:50 Temperature 97.8 F 98.2 F Pulse Rate 58 58 Respiratory Rate 16 18 Blood Pressure 100/54 L 95/53 L Pulse Oximetry 100 100 Oxygen Delivery Method Room Air Room Air BMI result Body Mass Index 24.6 Course Course Course Narrative: This is a Rapid Medical Exam performed in triage by Luisa Joyner PA-C. Full HPI, ROS and PE to be performed by primary ED provider. 44 yo F w/PMHx panniculectomy, GERD, anxiety presenting to the ED c/o sent in from bariatrics for green drainage noted from drain s/p panniculectomy 04/06/2025. denies fever or pain PE: +green d/c in drain Plan: labs, CT w/PO & IV con - per Bariatrics, UA Medical Decision Making Medical Decision Making [facility] Narrative: 44-year-old female presented hospital today from bariatric clinic for evaluation of green drainage coming from SHARYN drain. Bariatric clinic recommends CT imaging and lab work at this time. I do not see any signs of acute infection from incision site. Patient appears to be well on my exam does not appear to be toxic. Lab work will be obtain a CT imaging with the obtained per bariatric team recommendations. I do not think patient has sepsis. Patient's CT imaging did not show any sign of acute changes. This is incidental finding of a seroma likely secondary to postoperative panniculectomy. Discussed the case with Dr. Miller who reviewed the imaging. He is not concerned at this time. Recommends follow up in clinic. The patient to follow up with a special diet recommendation and take the antibiotic that was prescribed today. Discussed the patient with a roof bolter operator. Patient will be discharged home. Patient's blood pressure is noted to be little bit on the low side. I did repeat the blood pressure. 100/48 manually blood pressure. Patient stated that baseline she does have low blood pressure. This is around her normal blood pressure level. Differential Diagnosis Differential Diagnoses: The differential diagnosis associated with the presentation includes Postop infection Consult Healthcare Provider Management of the patient was discussed with: Soldering Machine Tender (Dr. Pelaez) Lab Data [facility] Lab Attestation statement: I reviewed the patient's lab results. 04/28/25 12:36 04/28/25 12:36 Labs: Lab Results 04/28/25 04/28/25 Range/Units 12:36 12:47 WBC 4.9 (4.8-10.8) X10*3/uL RBC 4.34 (4.20-5.50) X10*6/uL Hgb 13.5 (12.0-16.0) g/dl Hct 39.7 (37.0-47.0) % MCV 91.5 (80.0-98.0) fL MCH 31.1 (27.0-33.0) pg MCHC 34.0 (31.0-35.0) g/dl RDW 11.3 (11.0-16.0) % Plt Count 280 (160-400) X10*3/uL MPV 9.5 (9.4-12.3) fL Immature Gran % (Auto) 0.2 (0.0-0.4) % Neut % (Auto) 64.6 (45-73) % Lymph % (Auto) 25.9 (20-40) % Ector % (Auto) 7.9 (2-11) % Eos % (Auto) 1.0 (0-4) % Baso % (Auto) 0.4 (0-2) % Lymph # (Auto) 1.3 (1.2-4.9) X10*3/uL Ector # (Auto) 0.4 (0.1-1.2) X10*3/uL Eos # (Auto) 0.1 (0.0-0.4) X10*3/uL Baso # (Auto) 0.0 (0.0-0.2) X10*3/uL Abs Immat Gran (auto) 0.01 (0.00-0.03) X10*3/uL Absolute Neuts (auto) 3.2 (2.0-8.3) x10*3/uL Absolute Nucleated RBC 0.000 (0.0-0.012) X10*3/uL Nucleated RBC % (auto) 0.0 (0.0-0.2) /100WBC Sodium 139 (135-145) mmol/L Potassium 3.8 (3.3-5.1) mmol/L Chloride 104 (96-108) mmol/L Carbon Dioxide 28 (22-29) mmol/L Anion Gap 11 L (12-20) BUN 16 (9-16) mg/dL Creatinine 0.53 (0.5-1.4) mg/dL Estim Creat Clear Calc 121.8 Estimated GFR > 60 Random Glucose 83 (60-115) mg/dL Lactic Acid 1.3 (0.5-2.0) mmol/L Calcium 9.7 (8.4-10.2) mg/dL Magnesium 2.2 (1.6-2.6) mg/dL Total Bilirubin 0.7 (0.0-1.0) mg/dL Direct Bilirubin 0.2 (0.0-0.5) mg/dL AST 29 (5-31) U/L ALT 48 H (0-31) U/L Alkaline Phosphatase 84 (39-117) U/L Total Protein 7.7 (6.5-8.0) g/dL Albumin 4.8 (3.5-5.0) g/dL Lipase 28 (8-78) U/L Beta HCG, Quant 4 mIU/mL Independent Interpretation I performed an independent interpretation of an: CT Scan Radiology Impression Discussion of test interpretation with radiology: I have reviewed the radiologist's reading. Medications Administered Discontinued Medications Generic Name Dose Route Start Last Admin Trade Name Freq PRN Reason Stop Dose Admin Diatrizoate Meglum/Diatrizoate Sod 30 ml 04/28/25 16:46 04/28/25 16:46 Diatrizoate Meglumine, Sodium 30 Ml Solution PO 04/28/25 16:47 30 ml ONCE ONE Administration Iohexol 85 ml 04/28/25 16:45 04/28/25 16:46 Iohexol 350 Mg/Ml 100 Ml Infus..Btl IV 04/28/25 16:46 85 ml ONCE ONE Administration Discharge Plan Discharge Clinical Impression: Status post panniculectomy Patient Disposition: Home, Self-Care Additional Instructions: Follow up with the bariatric clinic. Take your antibiotic. Prescriptions: No Action cholecalciferol (vitamin D3) [Vitamin D3] 25 mcg (1,000 unit) capsule 25 mcg PO DAILY Qty: 90 3RF bupropion HCl 200 mg tablet sustained-release 12 hr 200 mg PO QAM trazodone 50 mg tablet 25 - 50 mg PO BEDTIME PRN (Reason: insomnia) fluticasone propionate 50 mcg/actuation spray,suspension 1 spray intranasal BID Rx Instructions: administer into each nostril sumatriptan succinate 25 mg tablet 25 mg PO QID PRN (Reason: Migraine Headache) hydroxyzine HCl 25 mg tablet 25 mg PO BID PRN (Reason: attention deficit hyperactivity disorder) Bariatric Multivitamins 45 mg iron- 800 mcg-120 mcg capsule 1 cap PO .daily in evening Qty: 90 3RF docusate sodium [Colace] 100 mg capsule 100 mg PO DAILY Qty: 90 0RF ondansetron 4 mg tablet,disintegrating 4 mg PO Q12H Qty: 20 0RF Patient Comments: postop med Rx Instructions: Use it only if you have nausea Print Language: Wolof
[2025-04-28 12:42] LABS: MANUAL DIFF FLAG NO
[2025-04-28 12:43] LABS: Hematocrit 39.7 % (37.0-47.0); Hemoglobin 13.5 g/dl (12.0-16.0); Imm Gran Abs Auto 0.01 X10*3/uL (0.00-0.03); Imm Gran Pct Auto 0.2 % (0.0-0.4); Lymphocytes Absolute Auto 1.3 X10*3/uL (1.2-4.9); Mean Corpuscular HGB Conc 34.0 g/dl (31.0-35.0); Mean Corpuscular Hemoglobin 31.1 pg (27.0-33.0); Mean Corpuscular Volume 91.5 fL (80.0-98.0); NRBC Abs Auto 0.000 X10*3/uL (0.0-0.012); NRBC Pct Auto 0.0 /100WBC (0.0-0.2); Platelet Count 280 X10*3/uL (160-400); Red Blood Count 4.34 X10*6/uL (4.20-5.50); White Blood Count 4.9 X10*3/uL (4.8-10.8)
[2025-04-28 13:03] LABS: Alanine Aminotransferase 48 U/L (0-31); Albumin Level 4.8 g/dL (3.5-5.0); Alkaline Phosphatase 84 U/L (39-117); Anion Gap 11 (12-20); Aspartate Amino Transferase 29 U/L (5-31); Blood Urea Nitrogen 16 mg/dL (9-16); Calcium 9.7 mg/dL (8.4-10.2); Carbon Dioxide 28 mmol/L (22-29); Chloride 104 mmol/L (96-108); Creatinine Clr Calc Pharmacy 121.8; Estimated Glomerular Filt Rate > 60; Lipase 28 U/L (8-78); Magnesium 2.2 mg/dL (1.6-2.6); Potassium 3.8 mmol/L (3.3-5.1); Sodium 139 mmol/L (135-145); Total Protein 7.7 g/dL (6.5-8.0)
--- NOTE | 2025-04-28 13:28 | PC.NURSE ---
patient a&ox3, iv inserted, labs previously drawn, gio drain intact-presently empty, rr equal/non labored, pt c/o 10/17 abd pain states it is just the area where she had surgery and normal for her, pt to have ct scan- awaiting radiology, call carrillo within reach, plan of care ongoing
[2025-04-28] MEDS: iohexoL 350 MG/ML 100 ML INFUS..BTL 85 ML IV (16:46)
[2025-04-28 17:50] VITALS: BP 95/53; PULSE 58; RESP 18; TEMP 36.8; O2SAT 100
[2025-04-28 19:05] VITALS: BP 98/56; PULSE 56; RESP 18; TEMP 36.7; O2SAT 98
== END 2025-04-28 19:07 | disposition home or self-care (01) ==
PROVIDERS: Physician Assistant; Emergency Provider Student in an Organized Health Care Education/Training Program; PCP Advanced Practice Midwife
DX: Z03.89 Encounter for observation for other suspected diseases and conditions ruled out (principal); M79.81 Nontraumatic hematoma of soft tissue; Z98.84 Bariatric surgery status
CPT/HCPCS: 36415; 74177; 80048; 80076; 83605; 83690; 83735; 84702; 85025; 87040; 99284; 99285; Q9967

== ENCOUNTER → 2025-04-28 12:10 | Outpatient (BNV) | payer MEDICAID, SELFPAY | PROVIDERS: Emergency Provider Student in an Organized Health Care Education/Training Program; PCP Advanced Practice Midwife; Visit Provider Radiology Diagnostic Radiology | DX: L98.7 Excessive and redundant skin and subcutaneous tissue (principal) | CPT/HCPCS: 74177 ==

== ENCOUNTER 2025-04-30 11:03 | Outpatient (AMB) | payer MEDICAID, SELFPAY ==
--- NOTE | 2025-04-30 11:37 | A.OFFVIS_ITS ---
VS Expanded 04/30/25 12:48 BP 101/49 L Blood Pressure Location Rt brachial Blood Pressure Position Sitting Pulse 74 Pulse Source Pulse Oximeter Temp 98.6 F Temperature Source Temporal Artery Scan Pulse Oximetry 97 Oxygen Delivery Method Room Air Intake Visit Reasons: Ov post op 04/06/25 Allergies No Known Allergies Allergy (Verified 04/28/25 12:10) Medication List - Last Reconciled 04/30/25 by Denise Everett CNP bupropion HCl SR 200 mg PO QAM cholecalciferol (vitamin D3) (Vitamin D3) 25 mcg PO DAILY docusate sodium (Colace) 100 mg PO DAILY doxycycline hyclate 100 mg PO BID fluticasone propionate 50 mcg/actuation 1 spray intranasal BID hydroxyzine HCl 25 mg PO BID PRN levofloxacin 500 mg PO DAILY lgiiuncxumji-ekm-vsji-FA-vit K 45 mg iron- 800 mcg-120 mcg (Bariatric Multivitamins) 1 cap PO .daily in evening ondansetron 4 mg PO Q12H sumatriptan succinate 25 mg PO QID PRN trazodone 25 - 50 mg PO BEDTIME PRN HPI Comments Details: 44 year old woman s/p panniculectomy 04/06/2025. On 04/28/2025, patient presented to office with reports of +odor x4 days and green drain output x1 day. She denied fevers at home but feels engineering supplies sales abdomen. Thought pain had increased in abdomen. Fluid from her drain was sent to the lab, and she was referred to the ER for CT abdomen and blood work. Lab and imaging results below. ABX was changed from Keflex BID to Doxycycline BID and Levofloxacin QD. Today, she presents for recheck of surgical site and flushing of the drain. Drain output has been 5-10cc per day. Continues with green purulent drainage in bulb. Denies constitutional symptoms or feeling ill/feverish. [facility] Medical History Postgastrectomy malabsorption GERD (gastroesophageal reflux disease) Depression Hx of bipolar disorder Panic attack Surgical History History of sleeve gastrectomy History of endometrial ablation H/O parathyroidectomy History of esophagogastroduodenoscopy (EGD) History of tonsillectomy and adenoidectomy Hx of tubal ligation Family History Mother Heart disease Arthritis Father Liver disease Herniated disc Brother No problems noted. Brother No problems noted. Brother No problems noted. Sister Diabetes Sister Migraine Sister HIV disease Sister No problems noted. Sister No problems noted. Daughter Asthma Son No problems noted. Paternal Aunt Breast cancer Social History Household Members: Family Housing: Apartment Are you a primary career guidance technician to a significant other at home: No Do you presently have visiting nurse or other home services: No 75 years or older and lives alone: No Alcohol intake: never Patient Tobacco Use Status: Former Tobacco user Tobacco use type: Cigarette Substance Use Type: Marijuana service: No Current occupational status: unemployed Female Reproductive History Menstrual Age of Menarche: 13 Physical Exam Vital Signs: Last Vital Signs Temp 98.6 F 04/30/25 12:48 Pulse 74 04/30/25 12:48 BP 101/49 L 04/30/25 12:48 Pulse Ox 97 04/30/25 12:48 Oxygen Delivery Method Room Air 04/30/25 12:48 Const General: cooperative, healthy appearing, comfortable and no acute distress Orientation/consciousness: patient oriented x3 GI Other: abd soft non tender non distended. panniculectomy incision and umbilicus appear to be healing well without erythema or open areas, drainage in bulb is green with slight but not overwhelming odor. new DSD applied and new SHARYN bulb attached. Neuro General: patient oriented x3 Results Reviewed Results Reviewed: CT abdomen/pelvis 04/28/2025 reports: IMPRESSION: 1. No acute findings in the abdomen or pelvis. 2. Subcutaneous stranding in the anterior subcutaneous abdominal fat related to recent panniculectomy. A surgical drain is in place in the inferior anterior abdominal wall. Just superior and right lateral of the umbilicus, just anterior to the rectus sheath, there is a 6 mm nonenhancing fluid collection which may represent a seroma. This does not appear definitively drainable. Fluid collected from SHARYN drain 04/28/2025: Creatinine 1.3 Albumin 1 Glucose < 2 Amylase 38 Bilirubin 2.7 Blood draw 04/28/2025: WBC 4.9 Other results per chart Assessment & Plan Assessment & Plan (1) S/P panniculectomy: Code(s): Z98.890 - Other specified postprocedural states Category: Surgical Plan: Plan: - Pt seen and examined with Dr Tan. - We disconnected the SHARYN bulb and flushed the drain with 10cc 50% hydrogen peroxide and 50% saline solution, withdrew approx 10cc thick yellow/white purulent fluid, flushed with another 10cc solution, and withdrew approx 7cc slightly clearer fluid. She tolerated the procedure well. - She will continue her ABX as prescribed, doxycycline BID and levofloxacin QD. - Empty the drain as she has been, once in the morning on Saturday and again on Saturday and record the outputs. - Return to office Saturday and we will flush the SHARYN on office days - Continue meal plan - Call office for any concerns/questions, S&S worsening infection Follow up: Saturday05/03/2025 as scheduled *Anam Alvarenga did not contribute to note, though she is listed as contributor.
--- OUTSIDE RECORDS SUMMARY | 2025-04-30 11:53 | XMS_ITS | Encounter Summary ---
Author Organization [employer] Address [address] [place] [address] Care Team Providers Care Community Health Coordinator Name Role Phone Magaly Mcrae MD Primary Care Provide r Encounter Details Date Type Department Care Team ([facility] st Contact Info) Description 02/13/2024 Telephone [facility] [address] [place], [place] [phone] Magaly Mcrae MD [address] [place], [place] [phone] Social History Tobacco Use Types Packs/Day Years [...] 3:30 PM EST Office Visit [facility] [address] [place] [phone] Magaly Mcrae MD [address] [place] [phone] documented as of this encounter Visit Diagnoses Not on filedocumented in this encounter Additional Health Concerns Assessment Noted Time PHQ-9 Depression Total Score: 11 023 3:07 PM EDT documented as of this encounter Care Teams Community Health Coordinator Relationship Specialty Start Date End Date Magaly Mcrae MD [address] [place] [phone] PCP - General Family Medicine 02/19/18 Anne Marie Reza Information ArchitectMatrix Inspector 04/14/25 documented as of this encounter
--- OUTSIDE RECORDS SUMMARY | 2025-04-30 11:54 | XMS_ITS | Encounter Summary ---
Author Organization [employer] Address [address] [facility] [address] [place] [address] Care Team Providers Care Dip Stand Loader Name Role Phone Magaly Mcrae MD Primary Care Provide r Encounter Details Date Type Department Care Team ([facility] st Contact Info) Description 04/29/2025 Results Follow-Up [facility] [address] [place], [place] [phone] Diya York CNM [address] [place] [address] CT Abdomen Pelvis w/ Contrast Social History Tobacco Use Types Packs/Day Years [...] Encounter Note - Diya York CNM - 04/29/2025 8:30 AM EST FYI documented in this encounter Plan of Treatment Upcoming Encounters Date Type Department Care Team (Late st Contact Info) Description 06/23/2025 3:30 PM EST Office Visit [facility] [address] [place] [address] Magaly Mcrea MD [address] [place] [address] documented as of this encounter Visit Diagnoses Not on filedocumented in this encounter Additional Health Concerns Assessment Noted Time PHQ-9 Depression Total Score: 12 025 3:36 PM EST documented as of this encounter Care Teams Dip Stand Loader Relationship Specialty Start Date End Date Magaly Mcrae MD [address] [place] [address] PCP - General Family Medicine 02/19/18 Anne Marie Reza Client Insights ConsultantTrimmer Operator Three Knife 04/14/25 documented as of this encounter
--- OUTSIDE RECORDS SUMMARY | 2025-04-30 11:54 | XMS_ITS | Encounter Summary ---
Author Organization [employer] Address [address] [facility] 7 [place] [address] Care Team Providers Care Wood Tile Installer Name Role Phone Magaly Mcrae MD Primary Care Provide r Reason for Visit * Reason Onset Date Comments Referral 04/02/2025 Encounter Details Date Type Department Care Team ([facility] st Contact Info) Description 04/02/2025 Telephone [facility] [address] [place], [place] [phone] Magaly Mcrae MD [address] [place], [place] [phone] Referral Social History Tobacco Use Types Packs/Day [...] EDT Please place derm referral again for [facility], original referral for eczema however appointment [...] is scheduled for 01/01/2026. Contact pt at [phone] documented in this encounter Plan of Treatment Upcoming Encounters Date Type Department Care Team (Late st Contact Info) Description 06/23/2025 3:30 PM EST Office Visit [facility] [address] [place] [address] Magaly Mcrae MD [address] [place], [place] [phone] documented as of this encounter Visit Diagnoses Not on filedocumented in this encounter Additional Health Concerns Assessment Noted Time PHQ-9 Depression Total Score: 15 025 11:32 AM EDT documented as of this encounter Care Teams Wood Tile Installer Relationship Specialty Start Date End Date Magaly Mcrae MD [address] [place] [address] PCP - General Family Medicine 02/19/18 Anne Marie Reza Chief Design DrafterElectrical Maintenance Engineer 04/14/25 documented as of this encounter
--- OUTSIDE RECORDS SUMMARY | 2025-04-30 11:54 | XMS_ITS | Clinical Summary ---
Author Organization [email or web address] Address [address] [facility] 7[address] [place] [address] Care Team Providers Care Power Brake Operator Name Role Phone Magaly Mcrae MD [...] Plan (02/07/2024 1:00 PM EDT): Refer to Licensed Electrician. Chronic pain of left knee 10/24/2022 Assessment [...] seek help PLAN: 1. Follow up with [facility]: Not recommended for follow-up 2. Patient goal is to obtain her meds and become stable. 3. Behavioral Recommendations a. Ind. Therapy b. Med. Management c. Coping skills provided. Assessment & Plan (10/25/2022 4:25 PM EDT): Counseling done BN referral I will start her again on Wellbutrin 150mg daily Hypercalcemia 04/10/2012 Encounters Date Type Department Care Team Description 04/29/2025 Results Follow-Up [facility] [address] [place] [address] Abdomen Pelvis w/ Contrast 04/28/2025 Orders Only GENERIC EXTERNAL DATA DEPARTMENT Provider, Generic External Data 04/17/2025 Refill [facility] [address] [place] [address] Magaly Mcrae MD Seasonal allergic rhinitis, unspecified trigger 04/14/2025 Telephone [facility] [address] [place] [address] Magaly Mcrae MD Care Coordination (ICP Care Plan) 04/13/2025 3:15 PM EST Office Visit [address] [address] Magaly Mcrae MD Encounter for preventive care (Primary Dx); Dietary counseling; Exercise counseling; Post-surgical hypoparathyroidism; Irritant contact dermatitis, unspecified trigger 04/13/2025 Travel 04/12/[address] [address] Magaly Mcrae MD Chart Prep 04/06/2025 Orders Only GENERIC EXTERNAL DATA DEPARTMENT Provider, Generic External Data 04/06/2025 Patient Outreach [facility] [address] [place], [place] [phone] Magaly Mcrae MD Pre-visit Planning ([facility] unable to reach [facility]) 04/05/[address] [address] Magaly Mcrae MD tammy recall 04/05/2025 Results Follow-Up [address] [address] Stan Marks CNM Prothrombin Time-INR, Partial Thromboplastin Time, Activated (APTT), CBC auto differential, Additional followed-up results: 2 04/02/2025 Orders Only [address] [address] Magaly Mcrae MD Eczema, unspecified type (Primary Dx) 04/02/[address] [phone] Magaly Mcrae MD Referral 02/15/2025 Patient Outreach [address] [phone] Magaly Mcrae MD Care Coordination ([facility]/W Efrain Torres, [facility] f/u, program graduation) 01/28/2025 Patient Outreach [address] [phone] Magaly Mcrae MD Care Management ([facility]- F/U call) from Last 3 Months Immunizations Immunization [...] t he electric, gas, oil or water [employer] threatened to shut off services in your [...] 3:30 PM EST Office Visit [facility] [address] [place], [place] [phone] Magaly Mcrae MD [address] [place] [address] Health Maintenance Due Date Last Done Comments [...] AUTO DIFFERENTIAL Routine 04/28/2025 12:36 PM EST BLOOD CULTURE (FIRST) Routine 04/28/2025 12:36 PM EST BLOOD CULTURE (SECOND) Routine 12:36 PM EST GRAM STAIN RESULT (NON ORDERABLE) Routine 04/28/2025 10:28 AM EST OTHER REF TEST - MISC Routine 04/28/2025 10:28 AM EST AMYLASE, PERITONEAL FLUID Routine 04/28/2025 10:28 AM EST CREATININE, BODY FLUID Routine 10:28 AM EST GLUCOSE PERITONEAL FLUID Routine 04/28/2025 10:28 AM EST ALBUMIN PERITONEAL FLUID Routine 04/28/2025 10:28 AM EST GROSS AND [...] PM EST Narrative 04/28/2025 5:04 PM EST [place] [address] [address] Scan Report Signed Patient: Aurora Ferrara MR#: [id number] : 1980 Acct:[id number] Age/Sex: 44 / F ADM Date: 04/28/25 Loc: .ED Attending Dr: Ordering Physician: Luisa Joyner Date of Service: 04/28/25 Procedure(s): CT abdomen pelvis w IV con Accession Number(s): [id number] cc: Luisa Joyner; STAN MARKS [facility] Report Number: [id number]: Total DLP = 475.00 mGy-cm Reason for [...] by: Todd Nguyễn MD 04/28/2025 05:02 PM [facility] Dictated By: Todd Nguyễn MD Signed By: <Electronically signed by Todd Nguyễn MD in OV> 04/28/25 1702 DD/ 1635 TD/TT: 04/28/25 1647 Credit Collection Associate: Procedure Note Donotuseinterpreter, Image - 04/28/[address] [place] [address] [address] Scan Report Signed Patient: Aurora Ferrara MMR#: [id number] : 1980Acct:[id number] Age/Sex: 44 / FADM Date: 04/28/25 Loc: .ED Attending Dr: Ordering Physician: Luisa Joyner Date of Service: 04/28/25 Procedure(s): CT abdomen pelvis w IV con Accession Number(s): [id number] cc: Luisa Joyner; STAN MARKS [facility] Report Number: [id number]: Total DLP = 475.00 mGy-cm Reason for [...] 04/28/25 1702 DD/ 1635 TD/TT: 04/28/25 1647 Credit Collection Associate: [facility] External Provider IMG CT PROCEDURES Final Result * Lactic Acid (04/28/2025 12:47 PM EST) Pathologist [facility] Lactic Acid 1.3 0.5 - 2.0 mmol/L [facility] 04/28/2025 12:4 7 PM EST 04/28/2025 12:51 PM EST Generic External Data Provider LAB BLOOD ORDERAB LES Final Result [facility] [address] [place] [phone] * CBC auto differential (04/28/2025 12:36 PM EST) Only the most recent of2 resultswithin the time period is included. Pathologist [facility] White Blood Count 4.9 4.8 - 10.8 X10*3/uL [facility] Red Blood Count 4.34 4.20 - 5.50 X10*6/uL [facility] Hemoglobin 13.5 12.0 - 16.0 g/dl [facility] Hematocrit 39.7 37.0 - 47.0 % [facility] Mean Corpuscular Volume 91.5 80.0 - 98.0 fL [facility] Mean Corpuscular Hemoglobin 31.1 27.0 - 33.0 pg [facility] Mean Corpuscular HGB Conc 34.0 31.0 - 35.0 g/dl [facility] Red Cell Distribution Width 11.3 11.0 - 16.0 % [facility] Platelet Count 280 160 - 400 X10*3/uL [facility] Mean Platelet Volume 9.5 9.4 - 12.3 fL [facility] Neutrophils Percent Auto 64.6 45 - 73 % [facility] Imm Gran Pct Auto 0.2 0.0 - 0.4 % [facility] Lymphocytes Percent Auto 25.9 20 - 40 % [facility] Monocytes Percent Auto 7.9 2 - 11 % [facility] Eosinophils Percent Auto 1.0 0 - 4 % [facility] Basophils Percent Auto 0.4 0 - 2 % [facility] NRBC Pct Auto 0.0 0.0 - 0.2 /100WBC [facility] Neutrophils Absolute Auto 3.2 2.0 - 8.3 x10*3/uL [facility] Imm Gran Abs Auto 0.01 0.00 - 0.03 X10*3/uL [facility] Lymphocytes Absolute Auto 1.3 1.2 - 4.9 X10*3/uL [facility] Monocytes Absolute Auto 0.4 0.1 - 1.2 X10*3/uL [facility] Eosinophils Absolute Auto 0.1 0.0 - 0.4 X10*3/uL [facility] Basophils Absolute Auto 0.0 0.0 - 0.2 X10*3/uL [facility] NRBC Abs Auto 0.000 0.0 - 0.012 X10*3/uL [facility] 04/28/2025 12:3 6 PM EST 04/28/2025 12:40 PM EST us Generic External Data Provider LAB BLOOD ORDERAB LES Final Result [facility] [address] [place] [address] [phone] * hCG, Total, Quantitative (04/28/2025 12:36 PM EST) HCG Quantitative 4 mIU/mL [facility] Comment:Weeks post LMP Appr oximate hCG(Last Menstrual Period) Range (mIU/ml)3 - 4 weeks 9 - 1304 - 5 weeks 75 - 2,6005 - 6 weeks 850 - 20,8006 - 7 weeks 4000 - 100,2007 - 12 weeks 11,500 - 289,23288 - 16 weeks 18,300 - 137,92427 - 29 weeks (2nd trimester) 1,400 - 53,00990 - 41 weeks (3rd trimester) 940 - [...] ORDERAB LES Final Result Performing Organization Address City/[facility]/ZIP Co de Phone Number [facility] [address] [place] [phone] * Magnesium (04/28/2025 12:36 PM EST) Magnesium 2.2 1.6 - 2.6 mg/dL [facility] 04/28/2025 12:3 6 PM EST 04/28/2025 12:40 PM EST Generic External Data Provider LAB BLOOD ORDERAB LES Final Result Performing Organization Address [facility]/ZIP Co de Phone Number [facility] [address] [place] [phone] * Lipase (04/28/2025 12:36 PM EST) Lipase 28 8 - 78 U/L [facility] 04/28/2025 12:3 6 PM EST 04/28/2025 12:40 PM EST us Generic External Data Provider LAB BLOOD ORDERAB LES Final Result Performing Organization Address City/[facility]/ZIP Co de Phone Number [facility] [address] [place] [phone] * (ABNORMAL) Hepatic Function Panel (04/28/2025 12:36 PM EST) Bilirubin, Total 0.7 0.0 - 1.0 mg/dL [facility] Bilirubin, Direct 0.2 0.0 - 0.5 mg/dL [facility] Aspartate Amino Transferase 29 5 - 31 U/L [facility] Alanine Aminotransferase 48(H) 0 - 31 U/L [facility] Total Protein 7.7 6.5 - 8.0 g/dL [facility] Albumin Level 4.8 3.5 - 5.0 g/dL [facility] Alkaline Phosphatase 84 39 - 117 U/L [facility] 04/28/2025 12:3 6 PM EST 04/28/2025 12:40 PM EST us Generic External Data Provider LAB BLOOD ORDERAB LES Final Result Performing Organization Address City/[facility]/ZIP Co de Phone Number [facility] [address] [place] [phone] * (ABNORMAL) Basic Metabolic Panel (04/28/2025 12:36 PM EST) Sodium 139 135 - 145 mmol/L [facility] Potassium 3.8 3.3 - 5.1 mmol/L [facility] Chloride 104 96 - 108 mmol/L [facility] Carbon Dioxide 28 22 - 29 mmol/L [facility] Anion Gap 11(L) 12 - 20 [facility] Urea Nitrogen (BUN) 16 9 - 16 mg/dL [facility] Creatinine, Serum 0.53 0.5 - 1.4 mg/dL [facility] Creatinine Clr Calc Pharmacy 121.8 [facility] Comment:Provided height and weight: 165.1 cm,67.132 kg.eGFR (calculated from the MDRD study equation) and eCrCl(calculated from the Cockcroft-Gault equation) are based ondifferent parameters and may not yield comparable results.If eCrCl result is absurd, please check patient'sheight/weight. Estimated Glomerular Filt Rate >60 [facility] Comment:Chronic Kidney Disea se: Estimated GFR < 60 mL/min/1.55m3Hienxl Kidney Disease: Estimated GFR < 15 mL/min/1.73m2 Glucose 83 60 - 115 mg/dL [facility] Calcium 9.7 8.4 - 10.2 mg/dL [facility] 04/28/2025 12:3 6 PM EST 04/28/2025 12:40 PM EST us Generic External Data Provider LAB BLOOD ORDERAB LES Final Result Performing Organization Address [facility]/[place] Co de Phone Number [facility] [address] [place] [phone] * Amylase, Peritoneal Fluid (04/28/2025 10:28 AM EST) Amylase, Peritoneal Fluid 38 [facility] Comment:Units: U/LThe refere nce range and other method performancespecifications have not been established for this bodyfluid. The test result must be integrated into the clinicalcontext for interpretation.Testing performed at: [facility] [address] [place] [address] 04/28/2025 10:2 8 AM EST 04/28/2025 12:13 PM EST Generic External Data Provider LAB BODY FLUIDS A ND STOOLS ORDERABLES Final Result Performing Organization Address [facility]/ZIP Co de Phone Number [facility] [address] [place] [address] [phone] * Glucose Peritoneal Fluid (04/28/2025 10:28 AM EST) Glucose, Peritoneal Fluid <2 [facility] Comment:Units: MG/DLThe refe rence range and other method performancespecifications have not been established for this bodyfluid. The test result must be integrated into the clinicalcontext for interpretation.Testing performed at: [facility] [address] [address] 04/28/2025 10:2 8 AM EST 04/28/2025 12:13 PM EST Generic External Data Provider LAB BODY FLUIDS A ND STOOLS ORDERABLES Final Result Performing Organization Address [facility]/[place] Co de Phone Number [facility] [address] [place] [phone] * Gram Stain Result (04/28/2025 10:28 AM EST) 04/28/2025 10:2 8 AM EST 04/28/2025 12:13 PM EST Comment:Abdom Fld Narrative [facility] - 04/30/2025 8:11 AM EST FLUID FROM DRAIN COLLECTED DURING PANNICULECTOMY Gram stain results: No polys 4+ Gram-negative rods 1+ Gram-positive cocci FLUID FROM DRAIN COLLECTED DURING PANNICULECTOMY Anaerobic Culture Culture in progress. FLUID FROM DRAIN COLLECTED DURING PANNICULECTOMY Gram negative noe Quant Org ID 4+ Specimen Source: Abdominal Fluid Generic External Data Provider HISTORICAL/NON OR DERABLE LABS Final Result Performing Organization Address [facility]/[place] Co de Phone Number [facility] [address] [place] [phone] * Albumin Peritoneal Fluid (04/28/2025 10:28 AM EST) Albumin Peritoneal Fluid 1.0 [facility] Comment:Units: GM/DLThe refe rence range and other method performancespecifications have not been established for this bodyfluid. The test result must be integrated into the clinicalcontext for interpretation.Testing performed at: [facility] [address] [place] [address] 04/28/2025 10:2 8 AM EST 04/28/2025 12:13 PM EST Generic External Data Provider LAB BODY FLUIDS A ND STOOLS ORDERABLES Final Result Performing Organization Address [facility]/[place] Co de Phone Number [facility] [address] [place] [address] [phone] * Other Reference Test - Misc (04/28/2025 10:28 AM EST) Other Ref Test Misc SEE NOTE [facility] Comment:See scanned report i n EMR 04/28/2025 10:2 8 AM EST 04/28/2025 12:13 PM EST Narrative [facility] - 04/29/2025 7:27 AM EST bilirubin level for intraabdominal fluid Generic External Data Provider LAB BLOOD ORDERAB LES Final Result Performing Organization Address [facility] de Phone Number [facility] [address] [place] [phone] * Creatinine, body fluid (04/28/2025 10:28 AM EST) Creatinine Peritoneal Fluid 1.3 [facility] Comment:Units: MG/DLThe refe rence range and other method performancespecifications have not been established for this bodyfluid. The test result must be integrated into the clinicalcontext for interpretation.Testing performed at: [facility] [address] [place] [address] 04/28/2025 10:2 8 AM EST 04/28/2025 12:13 PM EST Generic External Data Provider LAB BODY FLUIDS A ND STOOLS ORDERABLES Final Result Performing Organization Address [facility]/[place] Co de Phone Number [facility] [address] [place] [phone] * Gross and Microscopic Level 2 (04/06/2025 11:22 AM EDT) 04/06/2025 11:2 2 AM EDT 04/06/2025 1:50 PM EDT [facility] - 04/09/2025 10:21 AM EDT ----- ------- Name: Aurora Ferrara Age/Sex: 44/F : 1980 Unit#: [id number] Attend Dr: Kashmir Freeman MD Re04/06/25 Status: [facility] Location: [facility] Disch: ----- ------- SPEC : [id number] RECD: 04/06/25 STATUS: NELI JOHN NUM: [id number] ROYCE: 04/06/252 [facility] DR: Kashmir Freeman MD ENTERED: 04/06/25 SP TYPE: Surgical OTHR DR: STAN MARKS Maty ORDERED: Gross Micro L2, Gross Micro L3 [...] fibrofatty subcutaneous soft tissue without discrete abnormality. Foundation Maker sections are submitted in cassettes A1 [...] developed and their performance characteristics determined by [facility]. They have not been cleared [...] Name: Aurora Ferrara Age/Sex: 44/F : 1980 [id number]#: [id number] Attend Dr: Kashmir Freeman MD Re04/06/25 Status: [facility] Location: [facility] Disch: ----- ------- SPEC : [id number] RECD: 04/06/25 STATUS: NELI JOHN NUM: [id number] ROYCE: 04/06/[address]: Kashmir Freeman MD ENTERED: 04/06/25 SP TYPE: Surgical OTHR DR: STAN MARKS CNM ORDERED: Gross Micro L2, Gross Micro L3 Copies To: Kashmir Freeman MD [facility] Weight Management Program [address] [place] [address] STAN MARKS CNM [facility] [address] [place] [address] ----- ------- Signed (signature on file) Katharina Duron MD 04/09/25 1021 ----- ------- END OF REPORT us Generic External Data Provider LAB CYTOLOGY HOLLY CHILD Final Result [facility] [address] [place] [phone] * Partial Thromboplastin Time, Activated (APTT) (04/02/2025 1:27 PM EDT) Partial Thromboplastin Time 33.6 26.7 - 34.1 SEC [facility] 04/02/2025 1:27 PM EDT 04/02/2025 1:47 PM EDT Generic External Data Provider LAB BLOOD ORDERAB LES Final Result Performing Organization Address [facility]/[place] Co de Phone Number [facility] [address] [place] [phone] * (ABNORMAL) Prothrombin Time-INR (04/02/2025 1:27 PM EDT) Prothrombin Time 14.0(H) 10.9 - 12.4 SEC [facility] INTERNATIONAL NORM RATIO 1.2(H) 0.9 - 1.1 [facility] Comment:INTERNATIONAL NORMAL IZED RATIO (INR) [...] 1:27 PM EDT 04/02/2025 1:47 PM EDT us Generic External Data Provider LAB BLOOD ORDERAB LES Final Result Performing Organization Address [facility]/[place] Co de Phone Number [facility] [address] [place] [phone] * Type and screen (04/02/2025 1:27 PM EDT) Blood Type ON [facility] Antibody Screen NEGATIVE [facility] 04/02/2025 1:27 PM EDT 04/02/2025 1:40 PM EDT Narrative [facility] - 04/02/2025 2:20 PM EDT WITNESSED BY [place].Spec expiration changed by JIMMY on 04/02/25Reason: PAT SSSNURSING:Call Blood Bank (ext. [phone]) to band patient on admission.Type and Screen in effect until 2300 on 04/06/25. us Generic External Data Provider LAB BLOOD BANK TE ST ORDERABLES Final Result [facility] [address] [place] [address] [phone] * (ABNORMAL) Comprehensive Metabolic Panel (04/02/2025 1:27 PM EDT) Sodium 141 135 - 145 mmol/L [facility] Potassium 3.5 3.3 - 5.1 mmol/L [facility] Chloride 106 96 - 108 mmol/L [facility] Carbon Dioxide 27 22 - 29 mmol/L [facility] Anion Gap 12 12 - 20 [facility] Urea Nitrogen (BUN) 17(H) 9 - 16 mg/dL [facility] Creatinine, Serum 0.51 0.5 - 1.4 mg/dL [facility] Creatinine Clr Calc Pharmacy 135.2 [facility] Comment:Provided height and weight: 163.83 cm,70.125 kg.eGFR (calculated from the MDRD study equation) and eCrCl(calculated from the Cockcroft-Gault equation) are based ondifferent parameters and may not yield comparable results.If eCrCl result is absurd, please check patient'sheight/weight. Estimated Glomerular Filt Rate >60 [facility] Comment:Chronic Kidney Disea se: Estimated GFR < 60 mL/min/1.46f2Hjemyp Kidney Disease: Estimated GFR < 15 mL/min/1.73m2 Glucose 78 60 - 115 mg/dL [facility] Calcium 9.2 8.4 - 10.2 mg/dL [facility] Bilirubin, Total 0.7 0.0 - 1.0 mg/dL [facility] Aspartate Amino Transferase 25 5 - 31 U/L [facility] Alanine Aminotransferase 24 0 - 31 U/L [facility] Total Protein 6.9 6.5 - 8.0 g/dL [facility] Albumin Level 4.5 3.5 - 5.0 g/dL [facility] Alkaline Phosphatase 72 39 - 117 U/L [facility] 04/02/2025 1:27 PM EDT 04/02/2025 2:14 PM EDT us Generic External Data Provider LAB BLOOD ORDERAB LES Final Result Performing Organization Address City/State/[place] Co de Phone Number [facility] [address] [place] [phone] * BI US Breast Limited Right (01/22/2025 11:06 AM EDT) Anatomical Region Laterality Modality Breast Right Ultrasound 01/22/2025 11:0 6 AM EDT Narrative 01/22/2025 11:38 AM EDT [address] [place] [address] Ultrasound Report Signed Patient: Aurora Ferrara MR#: [id number] : 1980 Acct:[id number] Age/Sex: 44 / F ADM Date: 01/22/25 Loc: HO.MAMMO Attending Dr: Stan Marks CNM Ordering Physician: STAN MARKS CNM Date of Service: 01/22/25 Procedure(s): US breast RT limited Accession Number(s): [id number] cc: STAN MARKS CNM EXAMINATIONS: 1. MM [...] 01/22/25 1135 DD/ 1106 TD/TT: 01/22/25 1120 Credit Collection Associate: Procedure Note Donotuseinterpreter, Image - 01/22/2025 [facility] [address] [place], [place] [address] Ultrasound Report Signed Patient: Aurora Ferrara [facility]#: [id number] : 1980Acct:[id number] Age/Sex: 44 / FADM Date: 01/22/25 Loc: CHANTELLE.MAMMO Attending Dr: Stan Marks CNM Ordering Physician: STAN MARKS CNM Date of Service: 01/22/25 Procedure(s): US breast RT limited Accession Number(s): [id number] cc: STAN MARKS CNM EXAMINATIONS: 1. MM [...] 01/22/25 1135 DD/ 1106 TD/TT: 01/22/25 1120 Credit Collection Associate: us Stan Marks CNM IMG US PROCEDURES Final R esult * HPV DNA, Low/High Risk (01/05/2025 2:20 PM EDT) HPV High Risk Negative Negative [facility] HPV Genotype 16 Negative Negative [facility] HPV Genotype 18 Negative Negative [facility] Comment:HPV testing performe d at [facility] (CLIA#[id number]), [address] [place] [phone].Testing for HPV was performed using the Aicha [...] 2:20 PM EDT 01/06/2025 7:35 AM EDT us Stan Marks [facility] BLOOD ORDERABLES Delphine l Result [facility] [address] [place] [phone] * Pap Smear (01/05/2025 2:20 PM EDT) Swab Cervix uteri structure / Unknown 01/05/2025 2:20 PM EDT 01/06/2025 7:35 AM EDT Narrative [facility] - 01/19/2025 8:59 AM EDT ----- ------- Name: Aurora Ferrara Age/Sex: 44/F : 1980 Unit#: [id number] Attend Dr: STAN MARKS CNM Re01/05/25 Status: [facility] REF Location: [facility] Disch: ----- ------- SPEC : [id number] RECD: 01/06/25 STATUS: NELI JOHN NUM: [id number] ROYCE: 01/05/25-0 [facility] DR: STAN MARKS CNM ENTERED: 01/06/25 SP TYPE: Pap Smr OTHR [...] and HPV testing will be performed at [facility] (CLIA #[id number]), [address] [place] [address]. Testing for HPV was performed using the [...] detected. All professional services are performed by [facility] ([address] [place] [address], [place] [address]; ; CLIA #[id number]). The PAP Test is a screening procedure with the inherent possibility of both false negative and false positive results. Results should be interpreted in the context of historic and current clinical findings. Reliability of the PAP Test is enhanced by performing the test on a regular repetitive basis. CONTINUED ON NEXT PAGE ----- ------- Name: Aurora Ferrara Age/Sex: 44/F : 1980 Unit#: [id number] Attend Dr: STAN MARKS CNM Re01/05/25 Status: [facility] REF Location: [facility] Disch: ----- ------- SPEC : [id number] RECD: 01/06/25 STATUS: NELI JOHN NUM: [id number] ROYCE: 01/05/25-1420 [facility] DR: STAN MARKS CNM ENTERED: 01/06/25 SP TYPE: Pap Kamini HURST DR: ORDERED: Pap Smear ----- ------- Signed (signature on file) KYRA Edwards ([facility]) 01/19/25 0859 ----- ------- END OF REPORT Stan Marks [facility] CYTOLOGY ORDERABLES F inal Result [facility] [address] [place] [phone] * Lipid Panel, Standard (11/13/2024 9:53 AM EDT) Triglycerides 46 <150 mg/dL [facility] Comment:Desirable Triglyceri de: less than 150 mg/dLBorderline High Triglyceride 150-199 mg/dLHigh Triglyceride: 200-499 mg/dLVery High Triglyceride: greater than or equal to 5OO mg/dL Cholesterol 172 <200 mg/dL [facility] Comment:Desirable Cholestero l: less than 200 mg/dLBorderline High Cholesterol: 200-239 mg/dLHigh Cholesterol: greater than 239 mg/dL LDL Cholesterol Calculated 94 <100 mg/dL [facility] Comment:Desirable LDL: less than 100 mg/dLNear Optimal/Above Optimal LDL: 110- 129 mg/dLBorderline High LDL: 130-159 mg/dLHigh LDL: 160-189 mg/dLVery High LDL: greater than or equal to 190 mg/dL HDL Cholesterol 69 >40 mg/dL [facility] Comment:Desirable HDL: great er than 40 mg/dL Note: This HDL assay may give artificially low results in patients with liver disease. 11/13/2024 9:53 AM EDT 11/13/2024 9:53 AM EDT us Generic External Data Provider LAB BLOOD ORDERAB LES Final Result Performing Organization Address [facility]/ZIP Co de Phone Number [facility] [address] [place] [phone] * Hepatitis C Antibody with Reflex to HCV, RNA, Quantitative, Real-Time PCR (04/09/2024 12:15 PM EDT) Hepatitis C Antibody Nonreactive Nonreactive [facility] Comment:Antibodies to HCV no t detected; does not exclude early acuteHCV infection. Blood Venous blood specimen / Unknown 04/09/2024 12:15 PM EDT 04/09/2024 1:17 PM EDT Magaly Maldonado MD LAB BLOOD ORDERABLES Final Result Performing Organization Address [facility] Co de Phone Number [facility] [address] [place] [phone] * HIV-1/2 Antigen and Antibodies, Fourth Generation, with Reflexes (04/09/2024 12:15 PM EDT) HIV AB/AG Nonreactive Nonreactive [facility] Comment:HIV-1 p24 Ag and/or HIV-1/HIV-2 Ab not detected.A test result that is nonreactive does not exclude thepossibility of exposure to or infection with HIV-1 and/orHIV-2. Nonreactive results in this assay for individualswith prior exposure to HIV-1 and/or HIV-2 may be due toantigen and antibody levels that are below the limit ofdetection of this assay.The EvoApp[employer]encia HIV Ag/Ab Combo assay result andsupplemental assay results should be interpreted inconjunction with the patient's clinical presentation,history and other laboratory results. If the results areinconsistent with clinical evidence, additional testing issuggested to confirm the result. Blood Venous blood specimen / Unknown 04/09/2024 12:15 PM EDT 04/09/2024 1:17 PM EDT Magaly Maldonado MD LAB BLOOD ORDERABLES Final Result [facility] [address] [place] [phone] [phone] from Last 3 Months or Most Recently Relevant to Health Maintenance Insurance [facility] [employer] Care Teams Power Brake Operator Relationship Specialty Start Date End Date Magaly Mcrae MD [address] [place] [phone] PCP - General Family Medicine 02/19/18 Anne Marie Reza Director School Of NursingCounsel 04/14/25
--- OUTSIDE RECORDS SUMMARY | 2025-04-30 11:54 | XMS_ITS | Clinical Summary ---
Author Organization [address] [facility] Address [address] [place] [address] Phone Care Team Providers Care Sisal Operator Name Role Phone Thu Tam MD Primary Care Provider + [phone] Allergies No known active allergies Medications DICLOFENAC [...] - [place] - Main Lab [address] [facility] [place] [address] Bettina Sanford MD Abnormal uterine and vaginal bleeding, unspecified 01/29/2025 10:30 AM EDT Consult Orthopedic Surgery - [place] [address] [facility] [address] [place] [address] Dar Taylor MD Knee pain, [...] LAB CHEMISTRY METHOD 02/04/2025 5:46 PM EDT [facility] Testosterone, Free 0.1 0.0 - 0.5 ng/dL LAB CHEMISTRY METHOD 02/04/2025 5:46 PM EDT [facility] Testosterone, Bioavailable 2 1 - 9 ng/dL LAB CHEMISTRY METHOD 02/04/2025 5:46 PM EDT [facility] Sex Hormone Binding 148.1 See Comment nmol/L LAB CHEMISTRY METHOD 02/04/2025 5:46 PM EDT [facility] Comment: FEMALES: pre-menopausal 10.8 [...] LAB CHEMISTRY METHOD 02/04/2025 5:46 PM EDT [facility] Blood Venous blood specimen / Unknown Venipuncture / Unknown 02/04/2025 11:15 AM EDT 02/04/2025 12:47 PM EDT us Bettina Sanford MD LAB BLOOD ORDERABLES Fin al Result [facility] [address] [place] [address], * Sex hormone binding globulin (02/04/2025 11:15 AM EDT) Pathologist [facility] Sex Hormone Binding 148.1 See Comment nmol/L LAB CHEMISTRY METHOD 02/04/2025 5:46 PM EDT [facility] Comment: FEMALES: pre-menopausal 10.8 [...] MD LAB BLOOD ORDERABLES Fin al Result [facility] [address] [place] [address], * Progesterone (02/04/2025 11:15 AM EDT) [facility] Progesterone <0.2 ng/mL LAB CHEMISTRY METHOD 02/04/2025 2:58 PM EDT [facility] Comment: PROGESTERONE REFERENCE RANGES [...] ORDERABLES Fin al Result Performing Organization Address [facility] Co de Phone Number [facility] [address] [place] [address], * Estradiol (02/04/2025 11:15 AM EDT) Estradiol <11 See below pcg/mL LAB CHEMISTRY METHOD 02/04/2025 1:45 PM EDT [facility] Comment: ESTRADIOL REFERENCE RANGES [...] ORDERABLES Fin al Result Performing Organization Address [facility] Co de Phone Number [facility] [address] [place] [address], * Luteinizing hormone (02/04/2025 11:15 AM EDT) Luteinizing Hormone 14.8 See Comment mIU/mL LAB CHEMISTRY METHOD 02/04/2025 1:45 PM EDT [facility] Blood Venous blood specimen / Unknown Venipuncture / Unknown 02/04/2025 11:15 AM EDT 02/04/2025 12:47 PM EDT Narrative [facility] - 02/04/2025 1:45 PM EDT LH REFERENCE RANGES (MIU/ML) FEMALES NORMALLY MENSTRUATING: FOLLICULAR PHASE 1.9 - 12.8 MIDCYCLE PEAK 22.8 - 76.1 LUTEAL PHASE 0.6 - 13.5 POSTMENOPAUSAL: ON HRT 1.1 - 52.4 UNTREATED 8.6 - 61.8 Bettina Sanford MD LAB BLOOD ORDERABLES Fin al Result Performing Organization Address [facility]/ZIP Co de Phone Number [facility] [address] [place] [address], [place] [phone] * Follicle stimulating hormone (02/04/2025 11:15 AM EDT) Follicle Stimulating Hormone 51.1 See Comment mIU/mL LAB CHEMISTRY METHOD 02/04/2025 1:45 PM EDT [facility] Comment: FSH REFERENCE RANGES [...] ORDERABLES Fin al Result Performing Organization Address City/[facility]/ZIP Co de Phone Number [facility] [address] [place] [address], [place] [phone] * Tissue Exam (02/04/2025) Final Diagnosis Endometrial biopsy: Benign endocervical glandular epithelium and inflamed squamous epithelium No endometrium identified 02/05/2025 1:27 PM EDT [facility] Clinical Information Abnormal uterine bleeding 02/05/2025 1:27 PM EDT [facility] Gross Description A. Endometrium, biopsy: Labeled with the patient's name and information. Received in formalin is a 1.1 x 0.8 x 0.2 cm aggregate of irregular pink-red soft tissue fragments admixed with mucoid substance which is submitted in toto in a mesh bag in one cassette, multiple pieces, x 2. LENARD 02/05/2025 1:27 PM EDT [facility] Disclaimer Unless otherwise specified, all tissue is 10% NB formalin fixed and paraffin embedded. 02/05/2025 1:27 PM EDT [facility] Tissue Endometrial structure / Unknown 02/04/2025 02/04/2025 12:36 PM EDT Bettina Sanford MD LAB PATHOLOGY ORDERABLES Final Result [facility] [address] [place] [address], * XR Knee 3 Views Left (01/29/2025 10:17 AM EDT) Anatomical Region Laterality Modality Lower Extremities, Knee Left Computed Radiography Narrative 01/29/2025 10:49 AM EDT X-rays January 29, 2025. Bilateral knee PA weightbearing views. Lateral view of the left knee. Rafael Hernandez view of the left knee. No acute osseous abnormalities. No significant malalignment. Overall good preservation of the articular cartilage. Dar Taylor MD IMG XR PROCEDURES Final Result from Last 3 Months Insurance MEDICAID - [place] Care Teams Sisal Operator Relationship Specialty Start Date End Date Thu Tam MD [address] [place] [phone] PCP - General Internal Medicine 03/13/24
--- OUTSIDE RECORDS SUMMARY | 2025-04-30 11:54 | XMS_ITS | Encounter Summary ---
Author Organization [employer] Address [address] [facility] [address] [place] [address] Care Team Providers Care Chief Growth Officer Name Role Phone Magaly Mcrae MD Primary Care Provide r Encounter Details Date Type Department Care Team (Latest Contact Info) Description 04/05/2025 Results Follow-Up [facility]INE [address] [place], [place] [phone] Diya York CNM [address] [place] [address] Prothrombin Time-INR, Partial Thromboplastin Time, Activated (APTT), [...] Description 06/23/2025 3:30 PM EST Office Visit [facility]ICINE [address] [place] [phone] Magaly Mcrae MD [address] [place] [address] documented as of this encounter Visit Diagnoses Not on filedocumented in this encounter Additional Health Concerns Assessment Noted Time PHQ-9 Depression Total Score: 15 025 11:32 AM EDT documented as of this encounter Care Teams Chief Growth Officer Relationship Specialty Start Date End Date Magaly Mcrae MD [address] [place] [phone] PCP - General Family Medicine 02/19/18 Anne Marie Reza Salesperson Yard GoodsAcid Leveler 04/14/25 documented as of this encounter
--- OUTSIDE RECORDS SUMMARY | 2025-04-30 11:54 | XMS_ITS | Encounter Summary ---
Author Organization [facility] Address [address] [facility] [address] [place] [address] Care Team Providers Care Professor Of Voice Name Role Phone Magaly Mcrae MD Primary [...] Description 06/23/2025 3:30 PM EST Office Visit [facility] MEDICINE [address] [place], [place] [phone] Magaly Mcrae MD [address] [place] [address] Pending Results Name Type Priority Associated Diagnoses Date /Time Blood Culture (Second) Microbiology Routine 04/28/2025 12:36 PM EST Blood Culture (First) Microbiology Routine 04/28/2025 12:36 PM EST documented as of this encounter Procedures Procedure Name Priority Date/Time Associated Diagnosis Comments CT ABDOMEN PELVIS W CONTRAST Routine 04/28/2025 4:35 PM EST LACTIC ACID Routine 04/28/2025 12:47 PM EST BLOOD CULTURE (FIRST) Routine 04/28/2025 12:36 PM EST BLOOD CULTURE (SECOND) Routine 04/28/2025 12:36 PM EST CBC WITH AUTO DIFFERENTIAL Routine 04/28/2025 12:36 PM EST HCG, TOTAL, QN Routine 04/28/2025 12:36 PM EST MAGNESIUM Routine 04/28/2025 12:36 PM EST LIPASE Routine 04/28/2025 12:36 PM EST HEPATIC FUNCTION PANEL Routine 04/28/2025 12:36 PM EST BASIC METABOLIC PANEL Routine 04/28/2025 12:36 PM EST AMYLASE, PERITONEAL FLUID Routine 04/28/2025 10:28 AM EST GLUCOSE PERITONEAL FLUID Routine 04/28/2025 10:28 AM EST GRAM STAIN RESULT (NON ORDERABLE) Routine 04/28/2025 10:28 AM EST ALBUMIN PERITONEAL FLUID Routine 04/28/2025 10:28 AM EST OTHER REF TEST - MISC Routine 04/28/2025 10:28 AM EST CREATININE, BODY FLUID Routine 04/28/2025 10:28 AM EST documented in this encounter Results * CT Abdomen Pelvis w/ Contrast (04/28/2025 4:35 PM EST) Anatomical Region Laterality Modality Body, Pelvis, Abdomen Computed T omography 04/28/2025 4:35 PM EST Narrative 04/28/2025 5:04 PM EST [place] [address] CT Scan Report Signed Patient: Aurora Ferrara MR#: [id number] : 1980 Acct:[id number] Age/Sex: 44 / F ADM Date: 04/28/25 Loc: .ED Attending Dr: Ordering Physician: Luisa Joyner Date of Service: 04/28/25 Procedure(s): CT abdomen pelvis w IV con Accession Number(s): [id number] cc: Luisa Joyner; [facility] Report Number: [id number]: Total DLP = 475.00 mGy-cm Reason for [...] by: Todd Nguyễn MD 04/28/2025 05:02 PM [facility] Dictated By: Todd Nguyễn MD Signed By: <Electronically signed by Todd Nguyễn MD in OV> 04/28/25 1702 DD/ 1635 TD/TT: 04/28/25 1647 Generator Repairer: Procedure Note Donotuseinterpreter, Image - 04/28/[address] [place] [address] [address] Scan Report Signed Patient: Aurora Ferrara MMR#: [id number] : 1980Acct:[id number] Age/Sex: 44 / FADM Date: 04/28/25 Loc: HO.ED Attending Dr: Ordering Physician: Luisa Joyner Date of Service: 04/28/25 Procedure(s): CT abdomen pelvis w IV con Accession Number(s): [id number] cc: Luisa Joyner; [facility] Report Number: [id number]: Total DLP = 475.00 mGy-cm Reason for [...] 04/28/25 1702 DD/ 1635 TD/TT: 04/28/25 1647 Generator Repairer: [facility] External Provider IMG CT PROCEDURES Final Result * Lactic Acid (04/28/2025 12:47 PM EST) Pathologist [facility] Lactic Acid 1.3 0.5 - 2.0 mmol/L [facility] 04/28/2025 12:4 7 PM EST 04/28/2025 12:51 PM EST Generic External Data Provider LAB BLOOD ORDERAB LES Final Result [facility] [address] [place] [phone] * hCG, Total, Quantitative (04/28/2025 12:36 PM EST) HCG Quantitative 4 mIU/mL [facility] Comment:Weeks post LMP Appro ximate hCG(Last Menstrual Period) Range (mIU/ml)3 - 4 weeks 9 - 1304 - 5 weeks 75 - 2,6005 - 6 weeks 850 - 20,8006 - 7 weeks 4000 - 100,2007 - 12 weeks 11,500 - 289,17670 - 16 weeks 18,300 - 137,03362 - 29 weeks (2nd trimester) 1,400 - 53,10692 - 41 weeks (3rd trimester) 940 - [...] ORDERAB LES Final Result Performing Organization Address City/[facility]/ZIP Co de Phone Number [facility] [address] [place] [phone] * Lipase (04/28/2025 12:36 PM EST) Lipase 28 8 - 78 U/L [facility] 04/28/2025 12:3 6 PM EST 04/28/2025 12:40 PM EST Generic External Data Provider LAB BLOOD ORDERAB LES Final Result Performing Organization Address [facility] Co de Phone Number [facility] [address] [place] [phone] * Magnesium (04/28/2025 12:36 PM EST) Magnesium 2.2 1.6 - 2.6 mg/dL [facility] 04/28/2025 12:3 6 PM EST 04/28/2025 12:40 PM EST Generic External Data Provider LAB BLOOD ORDERAB LES Final Result Performing Organization Address [facility] de Phone Number [facility] [address] [place] [phone] * (ABNORMAL) Basic Metabolic Panel (04/28/2025 12:36 PM EST) Sodium 139 135 - 145 mmol/L [facility] Potassium 3.8 3.3 - 5.1 mmol/L [facility] Chloride 104 96 - 108 mmol/L [facility] Carbon Dioxide 28 22 - 29 mmol/L [facility] Anion Gap 11(L) 12 - 20 [facility] Urea Nitrogen (BUN) 16 9 - 16 mg/dL [facility] Creatinine, Serum 0.53 0.5 - 1.4 mg/dL [facility] Creatinine Clr Calc Pharmacy 121.8 [facility] Comment:Provided height and weight: 165.1 cm,67.132 kg.eGFR (calculated from the MDRD study equation) and eCrCl(calculated from the Cockcroft-Gault equation) are based ondifferent parameters and may not yield comparable results.If eCrCl result is absurd, please check patient'sheight/weight. Estimated Glomerular Filt Rate >60 [facility] Comment:Chronic Kidney Disea se: Estimated GFR < 60 mL/min/[id number] Kidney Disease: Estimated GFR < 15 mL/min/1.73m2 Glucose 83 60 - 115 mg/dL [facility] Calcium 9.7 8.4 - 10.2 mg/dL [facility] 04/28/2025 12:3 6 PM EST 04/28/2025 12:40 PM EST us Generic External Data Provider LAB BLOOD ORDERAB LES Final Result [facility] [address] [place] [phone] * (ABNORMAL) Hepatic Function Panel (04/28/2025 12:36 PM EST) Bilirubin, Total 0.7 0.0 - 1.0 mg/dL [facility] Bilirubin, Direct 0.2 0.0 - 0.5 mg/dL [facility] Aspartate Amino Transferase 29 5 - 31 U/L [facility] Alanine Aminotransferase 48(H) 0 - 31 U/L [facility] Total Protein 7.7 6.5 - 8.0 g/dL [facility] Albumin Level 4.8 3.5 - 5.0 g/dL [facility] Alkaline Phosphatase 84 39 - 117 U/L [facility] 04/28/2025 12:3 6 PM EST 04/28/2025 12:40 PM EST us Generic External Data Provider LAB BLOOD ORDERAB LES Final Result Performing Organization Address City/State/[facility] Co de Phone Number [facility] [address] [place] [phone] * CBC auto differential (04/28/2025 12:36 PM EST) White Blood Count 4.9 4.8 - 10.8 X10*3/uL [facility] Red Blood Count 4.34 4.20 - 5.50 X10*6/uL [facility] Hemoglobin 13.5 12.0 - 16.0 g/dl [facility] Hematocrit 39.7 37.0 - 47.0 % [facility] Mean Corpuscular Volume 91.5 80.0 - 98.0 fL [facility] Mean Corpuscular Hemoglobin 31.1 27.0 - 33.0 pg [facility] Mean Corpuscular HGB Conc 34.0 31.0 - 35.0 g/dl [facility] Red Cell Distribution Width 11.3 11.0 - 16.0 % [facility] Platelet Count 280 160 - 400 X10*3/uL [facility] Mean Platelet Volume 9.5 9.4 - 12.3 fL [facility] Neutrophils Percent Auto 64.6 45 - 73 % [facility] Imm Gran Pct Auto 0.2 0.0 - 0.4 % [facility] Lymphocytes Percent Auto 25.9 20 - 40 % [facility] Monocytes Percent Auto 7.9 2 - 11 % [facility] Eosinophils Percent Auto 1.0 0 - 4 % [facility] Basophils Percent Auto 0.4 0 - 2 % [facility] NRBC Pct Auto 0.0 0.0 - 0.2 /100WBC [facility] Neutrophils Absolute Auto 3.2 2.0 - 8.3 x10*3/uL [facility] Imm Gran Abs Auto 0.01 0.00 - 0.03 X10*3/uL [facility] Lymphocytes Absolute Auto 1.3 1.2 - 4.9 X10*3/uL [facility] Monocytes Absolute Auto 0.4 0.1 - 1.2 X10*3/uL [facility] Eosinophils Absolute Auto 0.1 0.0 - 0.4 X10*3/uL [facility] Basophils Absolute Auto 0.0 0.0 - 0.2 X10*3/uL [facility] NRBC Abs Auto 0.000 0.0 - 0.012 X10*3/uL [facility] 04/28/2025 12:3 6 PM EST 04/28/2025 12:40 PM EST us Generic External Data Provider LAB BLOOD ORDERAB LES Final Result Performing Organization Address City/[facility]/ZIP Co de Phone Number [facility] [address] [place] [phone] * Other Reference Test - Misc (04/28/2025 10:28 AM EST) Other Ref Test Misc SEE NOTE [facility] Comment:See scanned report i n EMR 04/28/2025 10:2 8 AM EST 04/28/2025 12:13 PM EST Narrative [facility] - 04/29/2025 7:27 AM EST bilirubin level for intraabdominal fluid us Generic External Data Provider LAB BLOOD ORDERAB LES Final Result Performing Organization Address [facility] Co de Phone Number [facility] [address] [place] [address] [phone] * Amylase, Peritoneal Fluid (04/28/2025 10:28 AM EST) Amylase, Peritoneal Fluid 38 [facility] Comment:Units: U/LThe refere nce range and other method performancespecifications have not been established for this bodyfluid. The test result must be integrated into the clinicalcontext for interpretation.Testing performed at: [facility] [address] [place] [address] 04/28/2025 10:2 8 AM EST 04/28/2025 12:13 PM EST Generic External Data Provider LAB BODY FLUIDS A ND STOOLS ORDERABLES Final Result Performing Organization Address [facility] de Phone Number [facility] [address] [place] [phone] * Creatinine, body fluid (04/28/2025 10:28 AM EST) Creatinine Peritoneal Fluid 1.3 [facility] Comment:Units: MG/DLThe refe rence range and other method performancespecifications have not been established for this bodyfluid. The test result must be integrated into the clinicalcontext for interpretation.Testing performed at: [facility] [address] [address] 04/28/2025 10:2 8 AM EST 04/28/2025 12:13 PM EST [facility] External Data Provider LAB BODY FLUIDS A ND STOOLS ORDERABLES Final Result Performing Organization Address [facility] de Phone Number [facility] [address] [place] [phone] * Glucose Peritoneal Fluid (04/28/2025 10:28 AM EST) Glucose, Peritoneal Fluid <2 [facility] Comment:Units: MG/DLThe refe rence range and other method performancespecifications have not been established for this bodyfluid. The test result must be integrated into the clinicalcontext for interpretation.Testing performed at: [facility] [address] [place] [address] 04/28/2025 10:2 8 AM EST 04/28/2025 12:13 PM EST Generic External Data Provider LAB BODY FLUIDS A ND STOOLS ORDERABLES Final Result Performing Organization Address [facility] Co de Phone Number [facility] [address] [place] [address] [phone] * Albumin Peritoneal Fluid (04/28/2025 10:28 AM EST) Albumin Peritoneal Fluid 1.0 [facility] Comment:Units: GM/DLThe refe rence range and other method performancespecifications have not been established for this bodyfluid. The test result must be integrated into the clinicalcontext for interpretation.Testing performed at: [facility] [address] [place] [address] 04/28/2025 10:2 8 AM EST 04/28/2025 12:13 PM EST Generic External Data Provider LAB BODY FLUIDS A ND STOOLS ORDERABLES Final Result Performing Organization Address [facility] de Phone Number [facility] [address] [place] [phone] * Gram Stain Result (04/28/2025 10:28 AM EST) 04/28/2025 10:2 8 AM EST 04/28/2025 12:13 PM EST Comment:Abdom Fld Narrative [facility] - 04/30/2025 8:11 AM EST [...] [facility] LABS Final Result Performing Organization Address [facility] de Phone Number [facility] [address] [place] [phone] [phone] documented in this encounter Visit Diagnoses Not on filedocumented in this encounter Additional Health Concerns Assessment Noted Time PHQ-9 Depression Total Score: 12 025 3:36 PM EST documented as of this encounter Care Teams Professor Of Voice Relationship Specialty Start Date End Date Magaly Mcrae MD [address] [place] [address] PCP - General Family Medicine 02/19/18 Anne Marie Reza Cotton FactorAccess Director 04/14/25 documented as of this encounter
--- OUTSIDE RECORDS SUMMARY | 2025-04-30 11:54 | XMS_ITS | Encounter Summary ---
Author Organization [facility] Address [address] [place] [address] Care Team Providers Care Fishing Reel Assembler Name Role Phone Thu Tam MD Primary Care Provider + [phone] Encounter Details Date Type Department Care Team (Late st Contact Info) Description 02/04/2025 Lab Requisition [facility] - Main Lab [address] [place] [phone] Bettina Sanford MD [address] [facility] [address] [place] [phone] Abnormal uterine and vaginal bleeding, unspecified Social [...] No endometrium identified 02/05/2025 1:27 PM EDT [facility] Clinical Information Abnormal uterine bleeding [...] Final Result [facility] [address] [place] [address], documented in this encounter Visit Diagnoses Diagnosis Abnormal uterine and vaginal bleeding, unspecified documented in this encounter Care Teams Fishing Reel Assembler Relationship Specialty Start Date End Date Thu Tam MD [address] [place] [phone] PCP - General Internal Medicine 03/13/24 documented as of this encounter
[2025-04-30 12:48] VITALS: BP 101/49; PULSE 74; TEMP 37; O2SAT 97
== END 2025-04-30 12:39 | disposition home or self-care (01) ==
PROVIDERS: PCP Advanced Practice Midwife; Visit Provider Nurse Practitioner
DX: Z98.890 Other specified postprocedural states (principal)
CPT/HCPCS: 99024

== ENCOUNTER → 2025-04-30 11:03 | Outpatient (BNVA) | payer MEDICAID, SELFPAY | PROVIDERS: PCP Advanced Practice Midwife; Visit Provider Surgery | DX: Z48.1 Encounter for planned postprocedural wound closure (principal); Z87.39 Personal history of other diseases of the musculoskeletal system and connective tissue | CPT/HCPCS: 99212 ==

== ENCOUNTER 2025-05-03 13:22 | Outpatient (AMB) | payer MEDICAID, SELFPAY ==
--- NOTE | 2025-04-30 12:26 | MHC.OFFVISWM ---
Intake Visit Reasons: OV Panniculectomy 04/06/25 Allergies No Known Allergies Allergy (Verified 04/28/25 12:10) PFSH Medical History Postgastrectomy malabsorption GERD (gastroesophageal reflux disease) Depression Hx of bipolar disorder Panic attack Surgical History History of sleeve gastrectomy History of endometrial ablation H/O parathyroidectomy History of esophagogastroduodenoscopy (EGD) History of tonsillectomy and adenoidectomy Hx of tubal ligation Family History Mother Heart disease Arthritis Father Liver disease Herniated disc Brother No problems noted. Brother No problems noted. Brother No problems noted. Sister Diabetes Sister Migraine Sister HIV disease Sister No problems noted. Sister No problems noted. Daughter Asthma Son No problems noted. Paternal Aunt Breast cancer Social History Household Members: Family Housing: Apartment Are you a primary child care associate teacher to a significant other at home: No Do you presently have visiting nurse or other home services: No 75 years or older and lives alone: No Alcohol intake: never Patient Tobacco Use Status: Former Tobacco user Tobacco use type: Cigarette Substance Use Type: Marijuana service: No Current occupational status: unemployed Female Reproductive History Menstrual Age of Menarche: 13
[2025-05-03 13:43] VITALS: BP 102/53; PULSE 85; TEMP 36.6; O2SAT 98
--- NOTE | 2025-05-03 13:43 | MHC.OFFVISWM ---
VS Expanded 05/03/25 13:43 BP 102/53 L Blood Pressure Location Rt brachial Blood Pressure Position Sitting Pulse 85 Pulse Source Pulse Oximeter Temp 98 F Temperature Source Temporal Artery Scan Pulse Oximetry 98 Oxygen Delivery Method Room Air Intake Visit Reasons: OV Panniculectomy 04/06/25 Allergies No Known Allergies Allergy (Verified 04/28/25 12:10) Medication List - Last Reconciled 05/03/25 by Denise Everett CNP bupropion HCl SR 200 mg PO QAM cholecalciferol (vitamin D3) (Vitamin D3) 25 mcg PO DAILY docusate sodium (Colace) 100 mg PO DAILY doxycycline hyclate 100 mg PO BID fluticasone propionate 50 mcg/actuation 1 spray intranasal BID hydroxyzine HCl 25 mg PO BID PRN levofloxacin 500 mg PO DAILY hkfjztldgqif-[id number]-ptxp-FA-vit K 45 mg iron- 800 mcg-120 mcg (Bariatric Multivitamins) 1 cap PO .daily in evening ondansetron 4 mg PO Q12H oxycodone-acetaminophen 5-325 mg (Percocet) 1 tab PO Q8H PRN sumatriptan succinate 25 mg PO QID PRN trazodone 25 - 50 mg PO BEDTIME PRN HPI Comments Details: 44 year old woman s/p panniculectomy 04/06/2025. On 04/28/2025, patient presented to office with reports of +odor x4 days and green drain output x1 day. She denied fevers at home but feels burglar alarm installer abdomen. Thought pain had increased in abdomen. Fluid from her drain was sent to the lab, and she was referred to the ER for CT abdomen and blood work. Lab and imaging results below. ABX was changed from Keflex BID to Doxycycline BID and Levofloxacin QD. On 04/30/2025, she presented to office for recheck of surgical site and flushing of the drain. She was flushed with a total of 20cc 50% saline/50% hydrogen peroxide. Today, she presents for recheck and repeat flushing. She reports drain output was 10cc each day over the weekend. She denies any odor or green colored output since flushing. Increased abd pain/discomfort in this area, to the point that she was given prn Oxycodone, which was helpful. Denies constitutional symptoms or feeling ill/feverish. [facility] Medical History Postgastrectomy malabsorption GERD (gastroesophageal reflux disease) Depression Hx of bipolar disorder Panic attack Surgical History History of sleeve gastrectomy History of endometrial ablation H/O parathyroidectomy History of esophagogastroduodenoscopy (EGD) History of tonsillectomy and adenoidectomy Hx of tubal ligation Family History Mother Heart disease Arthritis Father Liver disease Herniated disc Brother No problems noted. Brother No problems noted. Brother No problems noted. Sister Diabetes Sister Migraine Sister HIV disease Sister No problems noted. Sister No problems noted. Daughter Asthma Son No problems noted. Paternal Aunt Breast cancer Social History Household Members: Family Housing: Apartment Are you a primary livestock caretaker to a significant other at home: No Do you presently have visiting nurse or other home services: No 75 years or older and lives alone: No Alcohol intake: never Patient Tobacco Use Status: Former Tobacco user Tobacco use type: Cigarette Substance Use Type: Marijuana service: No Current occupational status: unemployed Female Reproductive History Menstrual Age of Menarche: 13 Physical Exam Vital Signs: Last Vital Signs Temp 98 F 05/03/25 13:43 Pulse 85 05/03/25 13:43 BP 102/53 L 05/03/25 13:43 Pulse Ox 98 05/03/25 13:43 Oxygen Delivery Method Room Air 05/03/25 13:43 Const General: cooperative, healthy appearing, comfortable and no acute distress Orientation/consciousness: patient oriented x3 GI Other: abd soft non tender non distended. pain/discomfort around SHARYN drain site. panniculectomy incision and umbilicus appear to be healing well without erythema or open areas, drainage in bulb is serous, does not appear to be purulent. No green noted. No odor. New DSD applied and SHARYN bulb re-attached. Neuro General: patient oriented x3 Results Reviewed Results Reviewed: Results Reviewed: CT abdomen/pelvis 04/28/2025 reports: IMPRESSION: 1. No acute findings in the abdomen or pelvis. 2. Subcutaneous stranding in the anterior subcutaneous abdominal fat related to recent panniculectomy. A surgical drain is in place in the inferior anterior abdominal wall. Just superior and right lateral of the umbilicus, just anterior to the rectus sheath, there is a 6 mm nonenhancing fluid collection which may represent a seroma. This does not appear definitively drainable. Fluid collected from SHARYN drain 04/28/2025: Creatinine 1.3 Albumin 1 Glucose < 2 Amylase 38 Bilirubin 2.7 Blood draw 04/28/2025: WBC 4.9 Cultures as of 05/03/2025: Organism 1 Pseudomonas aeruginosa Quantity 4+ Organism 2 Enterobacter cloacae complex Quantity 4+ Organism 3 Methicillin Res Staph Aureus Quantity 4+ Susceptible to tetracycline and ciprofloxacin Other results per chart Assessment & Plan Assessment & Plan (1) S/P panniculectomy: Code(s): Z98.890 - Other specified postprocedural states Category: Surgical Plan: - SHARYN was flushed the same as before. We disconnected the SHARYN bulb and flushed the drain with 10cc 50% hydrogen peroxide and 50% saline solution, withdrew approx 3.5cc watery pale yellow/white fluid, flushed with another 10cc solution, and withdrew approx 2cc of what appeared to be the flushing solution. She tolerated the procedure well, some increased pain/discomfort around the SHARYN drain even with slow flushes. - She will continue her ABX as prescribed, doxycycline BID and levofloxacin QD. Per culture results, the bacteria is susceptible to tetracycline and ciprofloxacin. - Empty the drain as she has been, once in the morning, and record the outputs. - Return to office Saturday and we will flush the SHARYN again - Continue meal plan - Call office for any concerns/questions, S&S worsening infection Follow up: as scheduled on 05/05/2025
--- OUTSIDE RECORDS SUMMARY | 2025-05-03 18:02 | XMS_ITS | Encounter Summary ---
Author Organization [facility] Address [address] [place] [address] Care Team Providers Care Shoe Cementer Name Role Phone Thu Tam MD Primary Care Provider + [phone] Encounter Details Date Type Department Care Team (Late st Contact Info) Description 02/04/2025 Lab Requisition [facility] - Main Lab [address] [place] [phone] Bettina Sanford MD [address] [facility] [address] [place] [phone] Abnormal uterine and vaginal bleeding, unspecified Social [...] No endometrium identified 02/05/2025 1:[address] [facility] Clinical Information Abnormal uterine bleeding [...] Final Result [facility] [address] [place] [address], documented in this encounter Visit Diagnoses Diagnosis Abnormal uterine and vaginal bleeding, unspecified documented in this encounter Care Teams Shoe Cementer Relationship Specialty Start Date End Date Thu Tam MD [address] [place] [phone] PCP - General Internal Medicine 03/13/24 documented as of this encounter
--- OUTSIDE RECORDS SUMMARY | 2025-05-03 18:02 | XMS_ITS | Encounter Summary ---
Author Organization [employer] [facility] Address [address] [place] [address] Care Team Providers Care Enrollment Management Director Name Role Phone Magaly Mcrae MD [...] 06/23/2025 3:30 PM EST Office Visit [facility] [address] [place], [place] [phone] Magaly Mcrae MD [address] [place] [address] documented as of this encounter Procedures Procedure [...] PM EST Narrative 04/28/2025 5:04 PM EST [place] [address] [address] Scan Report Signed Patient: Aurora Ferrara MR#: [id number] : 1980 Acct:[id number] Age/Sex: 44 / F ADM Date: 04/28/25 Loc: .ED Attending Dr: Ordering Physician: Luisa Joyner Date of Service: 04/28/25 Procedure(s): CT abdomen pelvis w IV con Accession Number(s): [id number] cc: Luisa Joyner; [facility] Report Number: [id number]: Total DLP = 475.00 mGy-cm Reason for [...] 04/28/25 1702 DD/ 1635 TD/TT: 04/28/25 1647 Collar Fuser: Procedure Note Donotuseinterpreter, Image - 04/28/[address] [place] [address] [address] Scan Report Signed Patient: Aurora Ferrara [facility]#: [id number] : 1980Acct:[id number] Age/Sex: 44 / FADM Date: 04/28/25 Loc: .ED Attending Dr: Ordering Physician: Luisa Joyner Date of Service: 04/28/25 Procedure(s): CT abdomen pelvis w IV con Accession Number(s): [id number] cc: Luisa Joyner; [facility] Report Number: [id number]: Total DLP = 475.00 mGy-cm Reason for [...] 04/28/25 1702 DD/ 1635 TD/TT: 04/28/25 1647 Collar Fuser: [facility] External Provider IMG CT PROCEDURES Final Result * Lactic Acid (04/28/2025 12:47 PM EST) Lactic Acid 1.3 0.5 - 2.0 mmol/L [facility] 04/28/2025 12:4 7 PM EST 04/28/2025 12:51 PM EST Generic External Data Provider LAB BLOOD ORDERAB LES Final Result Performing Organization Address [facility] Co de Phone Number [facility] [address] [place] [phone] * Blood Culture (First) (04/28/2025 12:36 PM EST) Blood Venous blood specimen / Unknown 04/28/2025 12:36 PM EST 04/28/2025 12:40 PM EST Comment:Blood Narrative [facility] - 05/03/2025 2:41 PM EST Blood Culture (First) No growth after 5 days. Specimen Source: Blood Generic External Data Provider LAB MICROBIOLOGY - GENERAL ORDERABLES Final Result Performing Organization Address [facility] Co de Phone Number [facility] [address] [place] [phone] * Blood Culture (Second) (04/28/2025 12:36 PM EST) Blood Venous blood specimen / Unknown 04/28/2025 12:36 PM EST 04/28/2025 12:40 PM EST Comment:Blood Narrative [facility] - 05/03/2025 2:41 PM EST Blood Culture (Second) No growth after 5 days. Specimen Source: Blood Generic External Data Provider LAB MICROBIOLOGY - GENERAL ORDERABLES Final Result Performing Organization Address City/[facility]/ZIP Co de Phone Number [facility] [address] [place] [phone] * hCG, Total, Quantitative (04/28/2025 12:36 PM EST) HCG Quantitative 4 mIU/mL [facility] Comment:Weeks post LMP Appro ximate hCG(Last Menstrual Period) Range (mIU/ml)3 - 4 weeks 9 - 1304 - 5 weeks 75 - 2,6005 - 6 weeks 850 - 20,8006 - 7 weeks 4000 - 100,2007 - 12 weeks 11,500 - 289,74450 - 16 weeks 18,300 - 137,87018 - 29 weeks (2nd trimester) 1,400 - 53,33616 - 41 weeks (3rd trimester) 940 - [...] LES Final Result Performing Organization Address [facility] Co de Phone Number [facility] [address] [place] [phone] * Lipase (04/28/2025 12:36 PM EST) Lipase 28 8 - 78 U/L [facility] 04/28/2025 12:3 6 PM EST 04/28/2025 12:40 PM EST us Generic External Data Provider LAB BLOOD ORDERAB LES Final Result Performing Organization Address City/[facility]/ZIP Co de Phone Number [facility] [address] [place] [phone] * Magnesium (04/28/2025 12:36 PM EST) Magnesium 2.2 1.6 - 2.6 mg/dL [facility] 04/28/2025 12:3 6 PM EST 04/28/2025 12:40 PM EST Generic External Data Provider LAB BLOOD ORDERAB LES Final Result Performing Organization Address [facility] Co de Phone Number [facility] [address] [place] [phone] * (ABNORMAL) Basic Metabolic Panel (04/28/2025 12:36 PM EST) Sodium 139 135 - 145 mmol/L [facility] Potassium 3.8 3.3 - 5.1 mmol/L [facility] Chloride 104 96 - 108 mmol/L [facility] Carbon Dioxide 28 22 - 29 mmol/L [facility] Anion Gap 11(L) 12 - 20 [facility] Urea Nitrogen (BUN) 16 9 - 16 mg/dL [facility] Creatinine, Serum 0.53 0.5 - 1.4 mg/dL [facility] Creatinine Clr Calc Pharmacy 121.8 [facility] Comment:Provided height and weight: 165.1 cm,67.132 kg.eGFR (calculated from the MDRD study equation) and eCrCl(calculated from the Cockcroft-Gault equation) are based ondifferent parameters and may not yield comparable results.If eCrCl result is absurd, please check patient'sheight/weight. Estimated Glomerular Filt Rate >60 [facility] Comment:Chronic Kidney Disea se: Estimated GFR < 60 mL/min/1.26l1Uyevvb Kidney Disease: Estimated GFR < 15 mL/min/1.73m2 Glucose 83 60 - 115 mg/dL [facility] Calcium 9.7 8.4 - 10.2 mg/dL [facility] 04/28/2025 12:3 6 PM EST 04/28/2025 12:40 PM EST Generic External Data Provider LAB BLOOD ORDERAB LES Final Result Performing Organization Address [facility]/ZIP Co de Phone Number [facility] [address] [place] [phone] * (ABNORMAL) Hepatic Function Panel (04/28/2025 12:36 PM EST) Pathologist [facility] Bilirubin, Total 0.7 0.0 - 1.0 mg/dL [facility] Bilirubin, Direct 0.2 0.0 - 0.5 mg/dL [facility] Aspartate Amino Transferase 29 5 - 31 U/L [facility] Alanine Aminotransferase 48(H) 0 - 31 U/L [facility] Total Protein 7.7 6.5 - 8.0 g/dL [facility] Albumin Level 4.8 3.5 - 5.0 g/dL [facility] Alkaline Phosphatase 84 39 - 117 U/L [facility] 04/28/2025 12:3 6 PM EST 04/28/2025 12:40 PM EST Generic External Data Provider LAB BLOOD ORDERAB LES Final Result Performing Organization Address [facility]/ZIP Co de Phone Number [facility] [address] [place] [address] [phone] * CBC auto differential (04/28/2025 12:36 PM EST) White Blood Count 4.9 4.8 - 10.8 X10*3/uL [facility] Red Blood Count 4.34 4.20 - 5.50 X10*6/uL [facility] Hemoglobin 13.5 12.0 - 16.0 g/dl [facility] Hematocrit 39.7 37.0 - 47.0 % [facility] Mean Corpuscular Volume 91.5 80.0 - 98.0 fL [facility] Mean Corpuscular Hemoglobin 31.1 27.0 - 33.0 pg [facility] Mean Corpuscular HGB Conc 34.0 31.0 - 35.0 g/dl [facility] Red Cell Distribution Width 11.3 11.0 - 16.0 % [facility] Platelet Count 280 160 - 400 X10*3/uL [facility] Mean Platelet Volume 9.5 9.4 - 12.3 fL [facility] Neutrophils Percent Auto 64.6 45 - 73 % [facility] Imm Gran Pct Auto 0.2 0.0 - 0.4 % [facility] Lymphocytes Percent Auto 25.9 20 - 40 % [facility] Monocytes Percent Auto 7.9 2 - 11 % [facility] Eosinophils Percent Auto 1.0 0 - 4 % [facility] Basophils Percent Auto 0.4 0 - 2 % [facility] NRBC Pct Auto 0.0 0.0 - 0.2 /100WBC [facility] Neutrophils Absolute Auto 3.2 2.0 - 8.3 x10*3/uL [facility] Imm Gran Abs Auto 0.01 0.00 - 0.03 X10*3/uL [facility] Lymphocytes Absolute Auto 1.3 1.2 - 4.9 X10*3/uL [facility] Monocytes Absolute Auto 0.4 0.1 - 1.2 X10*3/uL [facility] Eosinophils Absolute Auto 0.1 0.0 - 0.4 X10*3/uL [facility] Basophils Absolute Auto 0.0 0.0 - 0.2 X10*3/uL [facility] NRBC Abs Auto 0.000 0.0 - 0.012 X10*3/uL [facility] 04/28/2025 12:3 6 PM EST 04/28/2025 12:40 PM EST us Generic External Data Provider LAB BLOOD ORDERAB LES Final Result Performing Organization Address [facility] Co de Phone Number [facility] [address] [place] [phone] * Other Reference Test - Misc (04/28/2025 10:28 AM EST) Other Ref Test Misc SEE NOTE [facility] Comment:See scanned report i n EMR 04/28/2025 10:2 8 AM EST 04/28/2025 12:13 PM EST Narrative [facility] - 04/29/2025 7:27 AM EST bilirubin level for intraabdominal fluid us Generic External Data Provider LAB BLOOD ORDERAB LES Final Result Performing Organization Address [facility] Phone Number [facility] [address] [place] [phone] * Amylase, Peritoneal Fluid (04/28/2025 10:28 AM EST) Amylase, Peritoneal Fluid 38 [facility] Comment:Units: U/LThe refere nce range and other method performancespecifications have not been established for this bodyfluid. The test result must be integrated into the clinicalcontext for interpretation.Testing performed at: [facility] [address] [place] [address] 04/28/2025 10:2 8 AM EST 04/28/2025 12:13 PM EST us Generic External Data Provider LAB BODY FLUIDS A ND STOOLS ORDERABLES Final Result Performing Organization Address [facility] Co de Phone Number [facility] [address] [place] [phone] * Creatinine, body fluid (04/28/2025 10:28 AM EST) Creatinine Peritoneal Fluid 1.3 [facility] Comment:Units: MG/DLThe refe rence range and other method performancespecifications have not been established for this bodyfluid. The test result must be integrated into the clinicalcontext for interpretation.Testing performed at: [facility] [address] [place] [address] 04/28/2025 10:2 8 AM EST 04/28/2025 12:13 PM EST Generic External Data Provider LAB BODY FLUIDS A ND STOOLS ORDERABLES Final Result Performing Organization Address [facility] de Phone Number [facility] [address] [place] [phone] * Glucose Peritoneal Fluid (04/28/2025 10:28 AM EST) Glucose, Peritoneal Fluid <2 [facility] Comment:Units: MG/DLThe refe rence range and other method performancespecifications have not been established for this bodyfluid. The test result must be integrated into the clinicalcontext for interpretation.Testing performed at: [facility] [address] [address] 04/28/2025 10:2 8 AM EST 04/28/2025 12:13 PM EST [employer] External Data Provider LAB BODY FLUIDS A ND STOOLS ORDERABLES Final Result Performing Organization Address [facility] de Phone Number [facility] [address] [place] [phone] * Albumin Peritoneal Fluid (04/28/2025 10:28 AM EST) Albumin Peritoneal Fluid 1.0 [facility] Comment:Units: GM/DLThe refe rence range and other method performancespecifications have not been established for this bodyfluid. The test result must be integrated into the clinicalcontext for interpretation.Testing performed at: [facility] [address] [address] 04/28/2025 10:2 8 AM EST 04/28/2025 12:13 PM EST us Generic External Data Provider LAB BODY FLUIDS A ND STOOLS ORDERABLES Final Result [facility] [address] [place] [phone] * Gram Stain Result (04/28/2025 10:28 AM EST) 04/28/2025 10:2 8 AM EST 04/28/2025 12:13 PM EST Comment:Abdom Fld Narrative [facility] - 05/03/2025 9:56 AM EST FLUID FROM DRAIN COLLECTED DURING PANNICULECTOMY Gram stain results: No polys 4+ Gram-negative rods 1+ Gram-positive cocci FLUID FROM DRAIN COLLECTED DURING PANNICULECTOMY Anaerobic Culture Culture in progress. FLUID FROM DRAIN COLLECTED DURING PANNICULECTOMY Pseudomonas aeruginosa Quant Org ID 4+ Enterobacter cloacae complex Quant Org ID 4+ Methicillin Res Staph Aureus Quant Org ID 4+ Pseudomonas aeruginosa: Cefepime 2(S) Pseudomonas aeruginosa: Ciprofloxacin 0.25(S) Pseudomonas aeruginosa: Gentamicin <=1(S) Pseudomonas aeruginosa: Meropenem <=0.25(S) Pseudomonas aeruginosa: Piperacillin/Tazobactam <=4(S) Enterobacter cloacae complex: Cefazolin (Non-Urine) >=32(R) Enterobacter cloacae complex: Cefepime <=0.12(S) Enterobacter cloacae complex: Ciprofloxacin <=0.06(S) Enterobacter cloacae complex: Ertapenem <=0.12(S) Enterobacter cloacae complex: Gentamicin <=1(S) Enterobacter cloacae complex: Trimethoprim/Sulfamethoxazole >=320(R) Methicillin Res Staph Aureus: Clindamycin <=0.25(S) Methicillin Res Staph Aureus: Erythromycin <=0.25(S) Methicillin Res Staph Aureus: Oxacillin >=4(R) Methicillin Res Staph Aureus: Penicillin-G >=0.5(R) Methicillin Res Staph Aureus: Tetracycline <=1(S) Methicillin Res Staph Aureus: Trimethoprim/Sulfamethoxazole <=10(S) Methicillin Res Staph Aureus: Vancomycin <=0.5(S) Specimen Source: Abdominal Fluid us Generic External Data Provider HISTORICAL/NON OR DERABLE LABS Final Result [facility] [address] [place] [address] [phone] documented in this encounter Visit Diagnoses Not on filedocumented in this encounter Additional Health Concerns Assessment Noted Time PHQ-9 Depression Total Score: 12 025 3:36 PM EST documented as of this encounter Care Teams Enrollment Management Director Relationship Specialty Start Date End Date Magaly Mcrae MD [address] [place] [address] PCP - General Family Medicine 02/19/18 Anne Marie Reza Shift EngineerSoftware Quality Analyst 04/14/25 documented as of this encounter
--- OUTSIDE RECORDS SUMMARY | 2025-05-03 18:02 | XMS_ITS | Clinical Summary ---
Author Organization [employer] Address [address] [facility] 7[address] [place] [address] Care Team Providers Care Hospital Superintendent Name Role Phone Magaly Mcrae MD Primary [...] Plan (02/07/2024 1:00 PM EDT): Refer to Director Counseling Bureau. Chronic pain of left knee 10/24/2022 Assessment [...] seek help PLAN: 1. Follow up with [facility]: Not recommended for follow-up 2. Patient goal is to obtain her meds and become stable. 3. Behavioral Recommendations a. Ind. Therapy b. Med. Management c. Coping skills provided. Assessment & Plan (10/25/2022 4:25 PM EDT): Counseling done BN referral I will start her again on Wellbutrin 150mg daily Hypercalcemia 04/10/2012 Encounters Date Type Department Care Team Description 04/29/2025 Results Follow-Up [facility] [address] [place] [phone] Abdomen Pelvis w/ Contrast, CBC auto differential, Hepatic Function Panel, Additional followed-up results: 13 04/28/2025 Orders Only GENERIC EXTERNAL DATA DEPARTMENT Provider, Generic External Data 04/17/2025 Refill [facility] [address] [place] [address] Magaly Mcrae MD Seasonal allergic rhinitis, unspecified trigger 04/14/2025 Telephone [facility] [address] [place] [address] Magaly Mcrae MD Care Coordination (ICP Care Plan) 04/13/2025 3:15 PM EST Office Visit [address] [address] Magaly Mcrae MD Encounter for preventive care (Primary Dx); Dietary counseling; Exercise counseling; Post-surgical hypoparathyroidism; Irritant contact dermatitis, unspecified trigger 04/13/2025 Travel 04/12/[address] [address] Magaly Mcrae MD Chart Prep 04/06/2025 Orders Only GENERIC EXTERNAL DATA DEPARTMENT Provider, Generic External Data 04/06/2025 Patient Outreach [facility] [address], [place] [phone] Magaly Mcrae MD Pre-visit Planning ([facility] unable to reach [facility]) 04/05/[address] [address] Magaly Mcrae MD tammy recall 04/05/2025 Results Follow-Up [address] [address] Stan Marks CNM Prothrombin Time-INR, Partial Thromboplastin Time, Activated (APTT), CBC auto differential, Additional followed-up results: 2 04/02/2025 Orders Only [address] [address] Magaly Mcrae MD Eczema, unspecified type (Primary Dx) 04/02/[address] [phone] Magaly Mcrae MD Referral 02/15/2025 Patient Outreach [address] [phone] Magaly Mcrae MD Care Coordination ([facility] Efrain Torres, [facility] f/u, program graduation) from Last 3 Months Immunizations Immunization Administration [...] EST Office Visit [facility] [address] [place] [address] Magaly Mcrae MD [address] [place], [place] [phone] Health Maintenance Due Date Last Done Comments [...] Screening 04/13/2026 04/13/2025 Lipid Panel 11/13/2029 11/13/2024, 1006/2023, 08/31/2022 Cervical Cancer Screening 01/05/2030 HPV/Cotest 01/05/2030 [...] PM EST Narrative 04/28/2025 5:04 PM EST [place] [address] [address] Scan Report Signed Patient: Aurora Ferrara MR#: [id number] : 1980 Acct:[id number] Age/Sex: 44 / F ADM Date: 04/28/25 Loc: HO.ED Attending Dr: Ordering Physician: Luisa Joyner Date of Service: 04/28/25 Procedure(s): CT abdomen pelvis w IV con Accession Number(s): [id number] cc: Luisa Joyner; STAN MARKS [facility] Report Number: [id number]: Total DLP = 475.00 mGy-cm Reason for [...] by: Todd Nguyễn MD 04/28/2025 05:02 PM [facility] Dictated By: Todd Nguyễn MD Signed By: <Electronically signed by Todd Nguyễn MD in OV> 04/28/25 1702 DD/ 1635 TD/TT: 04/28/25 1647 Fishing Reel Assembler: Procedure Note Donotuseinterpreter, Image - 04/28/[address] [place] [address] [address] Scan Report Signed Patient: Aurora Ferrara MMR#: [id number] : 1980Acct:[id number] Age/Sex: 44 / FADM Date: 04/28/25 Loc: .ED Attending Dr: Ordering Physician: Luisa Joyner Date of Service: 04/28/25 Procedure(s): CT abdomen pelvis w IV con Accession Number(s): [id number] cc: Luisa Joyner; STAN MARKS [facility] Report Number: [id number]: Total DLP = 475.00 mGy-cm Reason for [...] 04/28/25 1702 DD/ 1635 TD/TT: 04/28/25 1647 Fishing Reel Assembler: [facility] External Provider IMG CT PROCEDURES Final Result * Lactic Acid (04/28/2025 12:47 PM EST) Lactic Acid 1.3 0.5 - 2.0 mmol/L [facility] 04/28/2025 12:4 7 PM EST 04/28/2025 12:51 PM EST Generic External Data Provider LAB BLOOD ORDERAB LES Final Result Performing Organization Address [facility]/ZIP Co de Phone Number [facility] [address] [place] [phone] * Blood Culture (First) (04/28/2025 12:36 PM EST) Blood Venous blood specimen / Unknown 04/28/2025 12:36 PM EST 04/28/2025 12:40 PM EST Comment:Blood Narrative [facility] - 05/03/2025 2:41 PM EST Blood Culture (First) No growth after 5 days. Specimen Source: Blood Generic External Data Provider LAB MICROBIOLOGY - GENERAL ORDERABLES Final Result Performing Organization Address [facility] Co de Phone Number [facility] [address] [place] [phone] * Blood Culture (Second) (04/28/2025 12:36 PM EST) Blood Venous blood specimen / Unknown 04/28/2025 12:36 PM EST 04/28/2025 12:40 PM EST Comment:Blood Narrative [facility] - 05/03/2025 2:41 PM EST Blood Culture (Second) No growth after 5 days. Specimen Source: Blood us Generic External Data Provider LAB MICROBIOLOGY - GENERAL ORDERABLES Final Result [facility] [address] [place] [address] [phone] * CBC auto differential (04/28/2025 12:36 PM EST) Only the most recent of2 resultswithin the time period is included. White Blood Count 4.9 4.8 - 10.8 X10*3/uL [facility] Red Blood Count 4.34 4.20 - 5.50 X10*6/uL [facility] Hemoglobin 13.5 12.0 - 16.0 g/dl [facility] Hematocrit 39.7 37.0 - 47.0 % [facility] Mean Corpuscular Volume 91.5 80.0 - 98.0 fL [facility] Mean Corpuscular Hemoglobin 31.1 27.0 - 33.0 pg [facility] Mean Corpuscular HGB Conc 34.0 31.0 - 35.0 g/dl [facility] Red Cell Distribution Width 11.3 11.0 - 16.0 % [facility] Platelet Count 280 160 - 400 X10*3/uL [facility] Mean Platelet Volume 9.5 9.4 - 12.3 fL [facility] Neutrophils Percent Auto 64.6 45 - 73 % [facility] Imm Gran Pct Auto 0.2 0.0 - 0.4 % [facility] Lymphocytes Percent Auto 25.9 20 - 40 % [facility] Monocytes Percent Auto 7.9 2 - 11 % [facility] Eosinophils Percent Auto 1.0 0 - 4 % [facility] Basophils Percent Auto 0.4 0 - 2 % [facility] NRBC Pct Auto 0.0 0.0 - 0.2 /100WBC [facility] Neutrophils Absolute Auto 3.2 2.0 - 8.3 x10*3/uL [facility] Imm Gran Abs Auto 0.01 0.00 - 0.03 X10*3/uL [facility] Lymphocytes Absolute Auto 1.3 1.2 - 4.9 X10*3/uL [facility] Monocytes Absolute Auto 0.4 0.1 - 1.2 X10*3/uL [facility] Eosinophils Absolute Auto 0.1 0.0 - 0.4 X10*3/uL [facility] Basophils Absolute Auto 0.0 0.0 - 0.2 X10*3/uL [facility] NRBC Abs Auto 0.000 0.0 - 0.012 X10*3/uL [facility] 04/28/2025 12:3 6 PM EST 04/28/2025 12:40 PM EST us Generic External Data Provider LAB BLOOD ORDERAB LES Final Result Performing Organization Address City/State/[facility] Co de Phone Number [facility] [address] [place] [phone] * hCG, Total, Quantitative (04/28/2025 12:36 PM EST) HCG Quantitative 4 mIU/mL [facility] Comment:Weeks post LMP Appro ximate hCG(Last Menstrual Period) Range (mIU/ml)3 - 4 weeks 9 - 1304 - 5 weeks 75 - 2,6005 - 6 weeks 850 - 20,8006 - 7 weeks 4000 - 100,2007 - 12 weeks 11,500 - 289,45396 - 16 weeks 18,300 - 137,77969 - 29 weeks (2nd trimester) 1,400 - 53,96860 - 41 weeks (3rd trimester) 940 - [...] ORDERAB LES Final Result Performing Organization Address [facility] Phone Number [facility] [address] [place] [phone] * Magnesium (04/28/2025 12:36 PM EST) Pathologist [facility] Magnesium 2.2 1.6 - 2.6 mg/dL [facility] 04/28/2025 12:3 6 PM EST 04/28/2025 12:40 PM EST Generic External Data Provider LAB BLOOD ORDERAB LES Final Result Performing Organization Address [facility] Phone Number [facility] [address] [place] [phone] * Lipase (04/28/2025 12:36 PM EST) Pathologist [facility] Lipase 28 8 - 78 U/L [facility] 04/28/2025 12:3 6 PM EST 04/28/2025 12:40 PM EST Generic External Data Provider LAB BLOOD ORDERAB LES Final Result Performing Organization Address [facility] Phone Number [facility] [address] [place] [phone] * (ABNORMAL) Hepatic Function Panel (04/28/2025 12:36 PM EST) Bilirubin, Total 0.7 0.0 - 1.0 mg/dL [facility] Bilirubin, Direct 0.2 0.0 - 0.5 mg/dL [facility] Aspartate Amino Transferase 29 5 - 31 U/L [facility] Alanine Aminotransferase 48(H) 0 - 31 U/L [facility] Total Protein 7.7 6.5 - 8.0 g/dL [facility] Albumin Level 4.8 3.5 - 5.0 g/dL [facility] Alkaline Phosphatase 84 39 - 117 U/L [facility] 04/28/2025 12:3 6 PM EST 04/28/2025 12:40 PM EST us Generic External Data Provider LAB BLOOD ORDERAB LES Final Result [facility] [address] [place] [phone] * (ABNORMAL) Basic Metabolic Panel (04/28/2025 12:36 PM EST) Sodium 139 135 - 145 mmol/L [facility] Potassium 3.8 3.3 - 5.1 mmol/L [facility] Chloride 104 96 - 108 mmol/L [facility] Carbon Dioxide 28 22 - 29 mmol/L [facility] Anion Gap 11(L) 12 - 20 [facility] Urea Nitrogen (BUN) 16 9 - 16 mg/dL [facility] Creatinine, Serum 0.53 0.5 - 1.4 mg/dL [facility] Creatinine Clr Calc Pharmacy 121.8 [facility] Comment:Provided height and weight: 165.1 cm,67.132 kg.eGFR (calculated from the MDRD study equation) and eCrCl(calculated from the Cockcroft-Gault equation) are based ondifferent parameters and may not yield comparable results.If eCrCl result is absurd, please check patient'sheight/weight. Estimated Glomerular Filt Rate >60 [facility] Comment:Chronic Kidney Disea se: Estimated GFR < 60 mL/min/1.56v3Thropc Kidney Disease: Estimated GFR < 15 mL/min/1.73m2 Glucose 83 60 - 115 mg/dL [facility] Calcium 9.7 8.4 - 10.2 mg/dL [facility] 04/28/2025 12:3 6 PM EST 04/28/2025 12:40 PM EST Generic External Data Provider LAB BLOOD ORDERAB LES Final Result Performing Organization Address [facility] Co de Phone Number [facility] [address] [place] [phone] * Amylase, Peritoneal Fluid (04/28/2025 10:28 AM EST) Amylase, Peritoneal Fluid 38 [facility] Comment:Units: U/LThe refere nce range and other method performancespecifications have not been established for this bodyfluid. The test result must be integrated into the clinicalcontext for interpretation.Testing performed at: [facility] [address] [place] [address] 04/28/2025 10:2 8 AM EST 04/28/2025 12:13 PM EST Generic External Data Provider LAB BODY FLUIDS A ND STOOLS ORDERABLES Final Result Performing Organization Address [facility] de Phone Number [facility] [address] [place] [phone] * Glucose Peritoneal Fluid (04/28/2025 10:28 AM EST) Glucose, Peritoneal Fluid <2 [facility] Comment:Units: MG/DLThe refe rence range and other method performancespecifications have not been established for this bodyfluid. The test result must be integrated into the clinicalcontext for interpretation.Testing performed at: [facility] [address] [place] [address] 04/28/2025 10:2 8 AM EST 04/28/2025 12:13 PM EST Generic External Data Provider LAB BODY FLUIDS A ND STOOLS ORDERABLES Final Result Performing Organization Address [facility] Co de Phone Number [facility] [address] [place] [address] [phone] * Gram Stain Result (04/28/2025 10:28 AM EST) 04/28/2025 10:2 8 AM EST 04/28/2025 12:13 PM EST Comment:Abdom Fld Narrative [facility] - 05/03/2025 9:56 AM EST FLUID [...] Provider HISTORICAL/NON OR DERABLE LABS Final Result [facility] [address] [place] [phone] * Albumin Peritoneal Fluid (04/28/2025 10:28 AM EST) Albumin Peritoneal Fluid 1.0 [facility] Comment:Units: GM/DLThe refe rence range and other method performancespecifications have not been established for this bodyfluid. The test result must be integrated into the clinicalcontext for interpretation.Testing performed at: [facility] [address] [place] [address] 04/28/2025 10:2 8 AM EST 04/28/2025 12:13 PM EST Generic External Data Provider LAB BODY FLUIDS A ND STOOLS ORDERABLES Final Result Performing Organization Address [facility]/ZIP Co de Phone Number [facility] [address] [place] [phone] * Other Reference Test - Misc (04/28/2025 10:28 AM EST) Other Ref Test Misc SEE NOTE [facility] Comment:See scanned report i n EMR 04/28/2025 10:2 8 AM EST 04/28/2025 12:13 PM EST Narrative [facility] - 04/29/2025 7:27 AM EST bilirubin level for intraabdominal fluid us Generic External Data Provider LAB BLOOD ORDERAB LES Final Result Performing Organization Address [facility]/ZIP Co de Phone Number [facility] [address] [place] [phone] * Creatinine, body fluid (04/28/2025 10:28 AM EST) Creatinine Peritoneal Fluid 1.3 [facility] Comment:Units: MG/DLThe refe rence range and other method performancespecifications have not been established for this bodyfluid. The test result must be integrated into the clinicalcontext for interpretation.Testing performed at: [facility] [address] [place] [address] 04/28/2025 10:2 8 AM EST 04/28/2025 12:13 PM EST us Generic External Data Provider LAB BODY FLUIDS A ND STOOLS ORDERABLES Final Result [facility] [address] [place] [phone] * Gross and Microscopic Level 2 (04/06/2025 11:22 AM EDT) 04/06/2025 11:2 2 AM EDT 04/06/2025 1:50 PM EDT Narrative [facility] - 04/09/2025 10:21 AM EDT ----- ------- Name: Aurora Ferrara Age/Sex: 44/F : 1980 Unit#: [id number] Attend Dr: Kashmir Freeman MD Re04/06/25 Status: [facility] Location: [facility] Disch: ----- ------- SPEC : [id number] RECD: 04/06/25 STATUS: NELI JOHN NUM: [id number] ROYCE: 04/06/[address]: Kashmir Freeman MD [...] fibrofatty subcutaneous soft tissue without discrete abnormality. Compensation Director sections are submitted in cassettes A1 -3. B. Received in formalin is a 1.6 cm in greatest dimension portion of fibrofatty soft tissue, sectioned and entirely submitted in cassette B1. (DTL) IHC S/NG Disclaimer NOTE: Unless otherwise stated, all tissue is formalin-fixed and paraffin-embedded. Some or all of the immunohistochemical tests reported herein may have been developed and their performance characteristics determined by [facility]. They have not been cleared [...] Aurora Ferrara Age/Sex: 44/F : 1980 Unit#: [id number] Attend Dr: Kashmir Freeman MD Re04/06/25 Status: [facility] Location: [facility] Disch: ----- ------- SPEC : [id number] RECD: 04/06/25 STATUS: NELI JOHN NUM: [id number] ROYCE: 04/06/[address]: Kashmir Freeman MD ENTERED: 04/06/25 SP TYPE: Surgical OTHR DR: STAN MARKS CNM ORDERED: Gross Micro L2, Gross Micro L3 Copies To: Kashmir Freeman MD [facility] Weight Management Program [address] [place] [phone] STAN MARKS CNM [address] [address] ----- ------- Signed (signature on file) Katharina Duron MD 04/09/25 1021 ----- ------- END OF REPORT Generic External Data Provider LAB VENKAT CHILD Final Result [facility] [address] [place] [phone] * Partial Thromboplastin Time, Activated (APTT) (04/02/2025 1:27 PM EDT) Partial Thromboplastin Time 33.6 26.7 - 34.1 SEC [facility] 04/02/2025 1:27 PM EDT 04/02/2025 1:47 PM EDT Generic External Data Provider LAB BLOOD ORDERAB LES Final Result Performing Organization Address City/[facility]/ZIP Co de Phone Number [facility] [address] [place] [phone] * (ABNORMAL) Prothrombin Time-INR (04/02/2025 1:27 PM EDT) Prothrombin Time 14.0(H) 10.9 - 12.4 SEC [facility] INTERNATIONAL NORM RATIO 1.2(H) 0.9 - 1.1 [facility] Comment:INTERNATIONAL NORMAL IZED RATIO (INR) [...] ORDERAB LES Final Result Performing Organization Address City/[facility]/ZIP Co de Phone Number [address] [phone] * Type and screen (04/02/2025 1:27 PM EDT) Blood Type ON [facility] Antibody Screen NEGATIVE [facility] 04/02/2025 1:27 PM EDT 04/02/2025 1:40 PM EDT Narrative [facility] - 04/02/2025 2:20 PM EDT WITNESSED BY [place].Spec expiration changed by JIMMY on 04/02/25Reason: ANANTH SSSNURSING:Call Blood Bank (ext. [phone]) to band patient on admission.Type and Screen in effect until 2300 on 04/06/25. us Generic External Data Provider LAB BLOOD BANK TE ST ORDERABLES Final Result [facility] [address] [place] [phone] * (ABNORMAL) Comprehensive Metabolic Panel (04/02/2025 1:27 PM EDT) Sodium 141 135 - 145 mmol/L [facility] Potassium 3.5 3.3 - 5.1 mmol/L [facility] Chloride 106 96 - 108 mmol/L [facility] Carbon Dioxide 27 22 - 29 mmol/L [facility] Anion Gap 12 12 - 20 [facility] Urea Nitrogen (BUN) 17(H) 9 - 16 mg/dL [facility] Creatinine, Serum 0.51 0.5 - 1.4 mg/dL [facility] Creatinine Clr Calc Pharmacy 135.2 [facility] Comment:Provided height and weight: 163.83 cm,70.125 kg.eGFR (calculated from the MDRD study equation) and eCrCl(calculated from the Cockcroft-Gault equation) are based ondifferent parameters and may not yield comparable results.If eCrCl result is absurd, please check patient'sheight/weight. Estimated Glomerular Filt Rate >60 [facility] Comment:Chronic Kidney Disea se: Estimated GFR < 60 mL/min/1.78m1Xsypqa Kidney Disease: Estimated GFR < 15 mL/min/1.73m2 Glucose 78 60 - 115 mg/dL [facility] Calcium 9.2 8.4 - 10.2 mg/dL [facility] Bilirubin, Total 0.7 0.0 - 1.0 mg/dL [facility] Aspartate Amino Transferase 25 5 - 31 U/L [facility] Alanine Aminotransferase 24 0 - 31 U/L [facility] Total Protein 6.9 6.5 - 8.0 g/dL [facility] Albumin Level 4.5 3.5 - 5.0 g/dL [facility] Alkaline Phosphatase 72 39 - 117 U/L [facility] 04/02/2025 1:27 PM EDT 04/02/2025 2:14 PM EDT us Generic External Data Provider LAB BLOOD ORDERAB LES Final Result [facility] [address] [place] [phone] * BI US Breast Limited Right (01/22/2025 11:06 AM EDT) Anatomical Region Laterality Modality Breast Right Ultrasound 01/22/2025 11:0 6 AM EDT Narrative 01/22/2025 11:38 AM EDT [facility] [address] [place] [address] Ultrasound Report Signed Patient: Aurora Ferrara MR#: [id number] : 1980 Acct:[id number] Age/Sex: 44 / F ADM Date: 01/22/25 Loc: HO.MAMMO Attending Dr: Stan Marks CNM Ordering Physician: STAN MARKS CNM Date of Service: 01/22/25 Procedure(s): US breast RT limited Accession Number(s): [id number] cc: STAN MARKS CNM EXAMINATIONS: 1. MM [...] 01/22/25 1135 DD/ 1106 TD/TT: 01/22/25 1120 Fishing Reel Assembler: Procedure Note Donotuseinterpreter, Image - 01/22/2025 [facility] [address] [place] [address] Ultrasound Report Signed Patient: Aurora Ferrara [facility]#: [id number] : 1980Acct:[id number] Age/Sex: 44 / FADM Date: 01/22/25 Loc: HO.MAMMO Attending Dr: Stan Marks CNM Ordering Physician: STAN MARKS CNM Date of Service: 01/22/25 Procedure(s): US breast RT limited Accession Number(s): [id number] cc: STAN MARKS CNM EXAMINATIONS: 1. MM [...] 01/22/25 1135 DD/ 1106 TD/TT: 01/22/25 1120 Fishing Reel Assembler: Stan Marks CNM IMG US PROCEDURES Final R esult * HPV DNA, Low/High Risk (01/05/2025 2:20 PM EDT) HPV High Risk Negative Negative [facility] HPV Genotype 16 Negative Negative [facility] HPV Genotype 18 Negative Negative [facility] Comment:HPV testing performe d at [facility] (CLIA#[id number]), [address] [place] [address].Testing for HPV was performed using the Aicha [...] CNM LAB BLOOD ORDERABLES Delphine l Result [facility] [address] [place] [phone] * Pap Smear (01/05/2025 2:20 PM EDT) Swab Cervix uteri structure / Unknown 01/05/2025 2:20 PM EDT 01/06/2025 7:35 AM EDT Narrative [facility] - 01/19/2025 8:59 AM EDT ----- ------- Name: Aurora Ferrara Age/Sex: 44/F : 1980 Unit#: [id number] Attend Dr: STAN MARKS CNM Re01/05/25 Status: DEP REF Location: [facility] Disch: ----- ------- SPEC : [id number] RECD: 01/06/25 STATUS: NELI JOHN NUM: [id number] ROYCE: 01/05/25-[address] [facility] [address]: STAN MARKS CNM ENTERED: 01/06/25 SP [...] be performed at [facility] (IA #[id number]), [address] [place] [address]. Testing for HPV was performed using the [...] detected. All professional services are performed by [facility] ([address] [place] [address]; ; CLIA #[id number]). The PAP Test is a screening procedure with the inherent possibility of both false negative and false positive results. Results should be interpreted in the context of historic and current clinical findings. Reliability of the PAP Test is enhanced by performing the test on a regular repetitive basis. CONTINUED ON NEXT PAGE ----- ------- Name: Aurora Ferrara Age/Sex: 44/F : 1980 Unit#: [id number] Attend Dr: STAN MARKS CNM Re01/05/25 Status: DEP REF Location: [facility] Disch: ----- ------- SPEC : [id number] RECD: 01/06/25 STATUS: NELI JOHN NUM: [id number] ROYCE: 01/05/25-[address] [facility] [address]: STAN MARKS CNM ENTERED: 01/06/25 SP TYPE: Pap Smr [facility] DR: ORDERED: Pap Smear ----- ------- Signed (signature on file) KYRA Edwards (ASCP) 01/19/25 0859 ----- ------- END OF REPORT us Stan Marks [facility] CYTOLOGY ORDERABLES F inal Result [facility] [address] [place] [phone] * Lipid Panel, Standard (11/13/2024 9:53 AM EDT) Triglycerides 46 <150 mg/dL [facility] Comment:Desirable Triglyceri de: less than 150 mg/dLBorderline High Triglyceride 150-199 mg/dLHigh Triglyceride: 200-499 mg/dLVery High Triglyceride: greater than or equal to 5OO mg/dL Cholesterol 172 <200 mg/dL [facility] Comment:Desirable Cholestero l: less than 200 mg/dLBorderline High Cholesterol: 200-239 mg/dLHigh Cholesterol: greater than 239 mg/dL LDL Cholesterol Calculated 94 <100 mg/dL [facility] Comment:Desirable LDL: less than 100 mg/dLNear Optimal/Above Optimal LDL: 110- 129 mg/dLBorderline High LDL: 130-159 mg/dLHigh LDL: 160-189 mg/dLVery High LDL: greater than or equal to 190 mg/dL HDL Cholesterol 69 >40 mg/dL [facility] Comment:Desirable HDL: great er than 40 mg/dL Note: This HDL assay may give artificially low results in patients with liver disease. 11/13/2024 9:53 AM EDT 11/13/2024 9:53 AM EDT us Generic External Data Provider LAB BLOOD ORDERAB LES Final Result Performing Organization Address [facility]/ZIP Co de Phone Number [facility] [address] [place] [address] [phone] * Hepatitis C Antibody with Reflex to HCV, RNA, Quantitative, Real-Time PCR (04/09/2024 12:15 PM EDT) Hepatitis C Antibody Nonreactive Nonreactive [facility] Comment:Antibodies to HCV no t detected; does not exclude early acuteHCV infection. Blood Venous blood specimen / Unknown 04/09/2024 12:15 PM EDT 04/09/2024 1:17 PM EDT us Magaly Maldonado MD LAB BLOOD ORDERABLES Final Result Performing Organization Address [facility] Co de Phone Number [facility] [address] [place] [address] [phone] * HIV-1/2 Antigen and Antibodies, Fourth Generation, with Reflexes (04/09/2024 12:15 PM EDT) HIV AB/AG Nonreactive Nonreactive [facility] Comment:HIV-1 p24 Ag and/or HIV-1/HIV-2 Ab not detected.A test result that is nonreactive does not exclude thepossibility of exposure to or infection with HIV-1 and/orHIV-2. Nonreactive results in this assay for individualswith prior exposure to HIV-1 and/or HIV-2 may be due toantigen and antibody levels that are below the limit ofdetection of this assay.The OpenEd HIV Ag/Ab Combo assay result andsupplemental assay results should be interpreted inconjunction with the patient's clinical presentation,history and other laboratory results. If the results areinconsistent with clinical evidence, additional testing issuggested to confirm the result. Blood Venous blood specimen / Unknown 04/09/2024 12:15 PM EDT 04/09/2024 1:17 PM EDT Magaly Maldonado MD LAB BLOOD ORDERABLES Final Result [facility] [address] [place] [phone] [phone] from Last 3 Months or Most Recently Relevant to Health Maintenance Insurance [facility] C3 Care Teams Hospital Superintendent Relationship Specialty Start Date End Date Magaly Mcrae MD [address] [place] [phone] PCP - General Family Medicine 02/19/18 Anne Marie Reza Electrical Development EngineerAnimal Husbandry Teacher 04/14/25
--- OUTSIDE RECORDS SUMMARY | 2025-05-03 18:02 | XMS_ITS | Clinical Summary ---
Author Organization [facility] Address [address] [place] [address] Phone Care Team Providers Care Project Manager Process Development Name Role Phone Thu Tam MD Primary Care Provider + [phone] Allergies No known active allergies Medications DICLOFENAC [...] [facility] [address] [place] [address] Bettina Sanford MD Abnormal uterine and vaginal bleeding, unspecified from Last 3 Months Social History Tobacco [...] 02/01/2014, 02/26/2008 Depression Screening 06/10/2024 COVID-19 Vaccine ( - 2024-2 6 season) 2025 Influenza Vaccine [...] 02/04/2025 Abnormal uterine and vaginal bleeding, unspecified from Last 3 Months Results * Testosterone free, bioavailable and total (02/04/2025 11:15 AM EDT) Testosterone 17 9 - 48 ng/dL LAB CHEMISTRY METHOD 02/04/2025 5:46 PM EDT [facility] Testosterone, Free 0.1 0.0 - 0.5 ng/dL LAB CHEMISTRY METHOD 02/04/2025 5:46 PM EDT [facility] Testosterone, Bioavailable 2 1 - 9 ng/dL LAB CHEMISTRY METHOD 02/04/2025 5:46 PM EDT [facility] Sex Hormone Binding 148.1 See Comment nmol/L LAB CHEMISTRY METHOD 02/04/2025 5:46 PM EDT [facility] Comment: FEMALES: pre-menopausal 10.8 - [...] LAB CHEMISTRY METHOD 02/04/2025 5:46 PM EDT [facility] Blood Venous blood specimen / Unknown Venipuncture / Unknown 02/04/2025 11:15 AM EDT 02/04/2025 12:47 PM EDT us Bettina Sanford MD LAB BLOOD ORDERABLES Fin al Result [facility] [address] [place] [address], * Sex hormone binding globulin (02/04/2025 11:15 AM EDT) Sex Hormone Binding 148.1 See Comment nmol/L LAB CHEMISTRY METHOD 02/04/2025 5:46 PM EDT [facility] Comment: FEMALES: pre-menopausal 10.8 - [...] ORDERABLES Fin al Result Performing Organization Address [facility] de Phone Number [facility] [address] [place] [address], * Progesterone (02/04/2025 11:15 AM EDT) Progesterone <0.2 ng/mL LAB CHEMISTRY METHOD 02/04/2025 2:58 PM EDT [facility] Comment: PROGESTERONE REFERENCE RANGES (NG/ML) [...] ORDERABLES Fin al Result Performing Organization Address [facility] Co de Phone Number [facility] [address] [place] [address], [place] [phone] * Estradiol (02/04/2025 11:15 AM EDT) Estradiol <11 See below pcg/mL LAB CHEMISTRY METHOD 02/04/2025 1:45 PM EDT [facility] Comment: ESTRADIOL REFERENCE RANGES (PG/ML) [...] us Bettina Sanford MD LAB BLOOD ORDERABLES Ravi jose Result [facility] [address] [place] [address], * Luteinizing hormone (02/04/2025 11:15 AM EDT) [facility] Luteinizing Hormone 14.8 See Comment mIU/mL LAB CHEMISTRY METHOD 02/04/2025 1:45 PM EDT [facility] Blood Venous blood specimen / Unknown Venipuncture / Unknown 02/04/2025 11:15 AM EDT 02/04/2025 12:47 PM EDT Narrative [facility] - 02/04/2025 1:45 PM EDT LH REFERENCE RANGES (MIU/ML) FEMALES NORMALLY MENSTRUATING: FOLLICULAR PHASE 1.9 - 12.8 MIDCYCLE PEAK 22.8 - 76.1 LUTEAL PHASE 0.6 - 13.5 POSTMENOPAUSAL: ON HRT 1.1 - 52.4 UNTREATED 8.6 - 61.8 us Bettina Sanford MD LAB BLOOD ORDERABLES Fin al Result Performing Organization Address [facility] Co de Phone Number [facility] [address] [place] [address], * Follicle stimulating hormone (02/04/2025 11:15 AM EDT) Pathologist [facility] Follicle Stimulating Hormone 51.1 See Comment mIU/mL LAB CHEMISTRY METHOD 02/04/2025 1:45 PM EDT [facility] Comment: FSH REFERENCE RANGES (MIU/ML) [...] ORDERABLES Fin al Result Performing Organization Address [facility] Co de Phone Number [facility] [address] [place] [address], * Tissue Exam (02/04/2025) Pathologist [facility] Final Diagnosis Endometrial biopsy: Benign endocervical glandular epithelium and inflamed squamous epithelium No endometrium identified 02/05/2025 1:27 PM EDT [facility] Clinical Information Abnormal uterine bleeding 02/05/2025 1:27 PM EDT [facility] Gross Description A. Endometrium, biopsy: Labeled with the patient's name and information. Received in formalin is a 1.1 x 0.8 x 0.2 cm aggregate of irregular pink-red soft tissue fragments admixed with mucoid substance which is submitted in toto in a mesh bag in one cassette, multiple pieces, x 2. LENARD 02/05/2025 1:27 PM EDT [facility] Disclaimer Unless otherwise specified, all tissue is 10% NB formalin fixed and paraffin embedded. 02/05/2025 1:27 PM EDT [facility] Tissue Endometrial structure / Unknown 02/04/2025 02/04/2025 12:36 PM EDT us Bettina Sanford MD LAB PATHOLOGY ORDERABLES Final Result [facility] [address] [place] [address], [place] [phone] from Last 3 Months Insurance MEDICAID - [place] Care Teams Project Manager Process Development Relationship Specialty Start Date End Date Thu Tam MD [address] [place] [phone] PCP - General Internal Medicine 03/13/24
--- OUTSIDE RECORDS SUMMARY | 2025-05-03 18:02 | XMS_ITS | Encounter Summary ---
Author Organization [employer] Address [address] [facility] 7t [place] [address] Care Team Providers Care Electronics Production Supervisor Name Role Phone Magaly Mcrae MD Primary Care Provide r Encounter Details Date Type Department Care Team (Latest Contact Info) Description 04/05/2025 Results Follow-Up [facility] [address] [place], [place] [phone] Diya York CNM [address] [place] [address] Prothrombin Time-INR, Partial Thromboplastin Time, Activated (APTT), [...] Description 06/23/2025 3:30 PM EST Office Visit [facility] [address] [place] [phone] Magaly Mcrae MD [address] [place] [address] documented as of this encounter Visit Diagnoses Not on filedocumented in this encounter Additional Health Concerns Assessment Noted Time PHQ-9 Depression Total Score: 15 025 11:32 AM EDT documented as of this encounter Care Teams Electronics Production Supervisor Relationship Specialty Start Date End Date Magaly Mcrae MD [address] [place] [phone] PCP - General Family Medicine 02/19/18 Anne Marie Reza Straddle Truck DriverHost Hostess 04/14/25 documented as of this encounter
--- OUTSIDE RECORDS SUMMARY | 2025-05-03 18:02 | XMS_ITS | Encounter Summary ---
Author Organization [employer] Address [address] [facility] [address] [place] [address] Care Team Providers Care Bad Cloth Checker Name Role Phone Magaly Mcrae MD Primary Care Provide r Encounter Details Date Type Department Care Team ([facility] st Contact Info) Description 02/13/2024 Telephone [facility] [address] [place], [place] [phone] Magaly Mcrae MD [address] [place], [place] [phone] Social History Tobacco Use Types Packs/Day Years [...] 06/23/2025 3:30 PM EST Office Visit [facility] [address] [place] [phone] Magaly Mcrae MD [address] [place] [phone] documented as of this encounter Visit Diagnoses Not on filedocumented in this encounter Additional Health Concerns Assessment Noted Time PHQ-9 Depression Total Score: 11 023 3:07 PM EDT documented as of this encounter Care Teams Bad Cloth Checker Relationship Specialty Start Date End Date Magaly Mcrae MD [address] [place] [phone] PCP - General Family Medicine 02/19/18 Anne Marie Reza Digital MarketerQuality Systems Manager 04/14/25 documented as of this encounter
--- OUTSIDE RECORDS SUMMARY | 2025-05-03 18:02 | XMS_ITS | Encounter Summary ---
Author Organization [employer] Address [address] [facility] 7t [place] [address] Care Team Providers Care Muffler Installer Name Role Phone Maglay Mcrae MD Primary Care Provide r Encounter Details Date Type Department Care Team ([facility] st Contact Info) Description 04/29/2025 Results Follow-Up [facility] [address] [place], [place] [phone] Diya York CN [address] [place] [address] CT Abdomen Pelvis w/ Contrast, CBC auto differential, Hepatic Function Panel, Additional followed-up results: 13 Social History Tobacco Use Types Packs/Day Years [...] Encounter Note - Diya York CNM - 05/03/2025 11:32 AM EST FYI * Result Encounter Note - Diya York CNM - 04/29/2025 8:30 AM EST FYI documented in this encounter Plan of Treatment Upcoming Encounters Date Type Department Care Team (Late st Contact Info) Description 06/23/2025 3:30 PM EST Office Visit [facility] [address] [place] [address] Magaly Mcrae MD [address] [place] [address] documented as of this encounter Visit Diagnoses Not on filedocumented in this encounter Additional Health Concerns Assessment Noted Time PHQ-9 Depression Total Score: 12 025 3:36 PM EST documented as of this encounter Care Teams Muffler Installer Relationship Specialty Start Date End Date Magaly Mcrae MD [address] [place] [phone] PCP - General Family Medicine 02/19/18 Anne Marie Reza Steam Train DriverFilm Technician 04/14/25 documented as of this encounter
--- OUTSIDE RECORDS SUMMARY | 2025-05-03 18:02 | XMS_ITS | Encounter Summary ---
Author Organization [employer] Address [address] [facility] 7 [place] [address] Care Team Providers Care Treasury Associate Name Role Phone Magaly Mcrae MD Primary Care Provide r Reason for Visit * Reason Onset Date Comments Referral 04/02/2025 Encounter Details Date Type Department Care Team ([facility] st Contact Info) Description 04/02/2025 Telephone [facility] [address] [place], [place] [phone] Magaly Mcrae MD [address] [place], [place] [phone] Referral Social History Tobacco Use Types Packs/Day [...] EDT Please place [facility] original referral for eczema [...] is scheduled for 01/01/2026. Contact pt at [phone] documented in this encounter Plan of Treatment Upcoming Encounters Date Type Department Care Team (Late st Contact Info) Description 06/23/2025 3:30 PM EST Office Visit [facility] [address] [place] [address] Magaly Mcrae MD [address] [place], [place] [phone] documented as of this encounter Visit Diagnoses Not on filedocumented in this encounter Additional Health Concerns Assessment Noted Time PHQ-9 Depression Total Score: 15 025 11:32 AM EDT documented as of this encounter Care Teams Treasury Associate Relationship Specialty Start Date End Date Magaly Mcrae MD [address] [place] [address] PCP - General Family Medicine 02/19/18 Anne Marie Reza Band BuilderPlate Gauger 04/14/25 documented as of this encounter
== END 2025-05-03 14:15 | disposition home or self-care (01) ==
LOC: HO.HBS 13:23
PROVIDERS: PCP Advanced Practice Midwife; Visit Provider Nurse Practitioner
DX: Z98.890 Other specified postprocedural states (principal)
CPT/HCPCS: 99024

== ENCOUNTER → 2025-05-03 13:22 | Outpatient (BNVA) | payer MEDICAID, SELFPAY | PROVIDERS: PCP Advanced Practice Midwife; Visit Provider Nurse Practitioner | DX: Z48.817 Encounter for surgical aftercare following surgery on the skin and subcutaneous tissue (principal) | CPT/HCPCS: 99212 ==

== ENCOUNTER 2025-05-05 | Outpatient (REF) | payer MEDICAID, SELFPAY ==
--- OUTSIDE RECORDS SUMMARY | 2025-07-01 19:10 | XMS_ITS | Encounter Summary ---
Author Organization [employer] Address [address] [place] [address] Care Team Providers Care Senior Software Quality Engineer Name Role Phone Magaly Mcrae MD Primary Care Provide r Encounter Details Date Type Department Care Team ([facility] st Contact Info) Description 02/13/2024 Telephone [facility] [address] [place], [place] [phone] Magaly Mcrae MD [address] [place], [place] [phone] Social History Tobacco Use Types Packs/Day Years [...] of this encounter Care Teams Senior Software Quality Engineer Relationship Specialty Start Date End Date Magaly Mcrae MD [address] [place] [phone] PCP - General Family Medicine 02/19/18 Anne Marie Reza Beef Cattle FarmerBroiler Supervisor 04/14/25 documented as of this encounter
--- OUTSIDE RECORDS SUMMARY | 2025-07-01 19:10 | XMS_ITS | Encounter Summary ---
Author Organization [employer] Address [address] [place] [address] Care Team Providers Care Construction Stonemason Name Role Phone Magaly Mcrae MD Primary Care Provide r Encounter Details Date Type Department Care Team ([facility] st Contact Info) Description 04/29/2025 Results Follow-Up [facility] [address] [place], [place] [phone] Diya York CN [address] [place] [address] CT Abdomen Pelvis w/ Contrast, CBC auto [...] got money to buy more: Never True 06/16/2025 Within the past 12 months,th e food you bought just didn't last and you didn't have enough money to get more: Never True 12/2025 Transportation Answer Date Recorded In the past [...] documented as of this encounter Care Teams Construction Stonemason Relationship Specialty Start Date End Date Magaly Mcrae MD [address] [place] [address] PCP - General Family Medicine 02/19/18 Anne Marie Reza Settlement ProcessorColliery Clerk 04/14/25 documented as of this encounter
--- OUTSIDE RECORDS SUMMARY | 2025-07-01 19:10 | XMS_ITS | Clinical Summary ---
Author Organization [employer] Address [address] [facility] [address] [place] [address] Care Team Providers Care Dock Hand Name Role Phone Magaly Mcrae MD Primary Care Provide r Allergies No known active allergies Medications * This document contains information received from the source organization and may not represent a complete record from that organization. acetaminophen (Tylenol Extra Strength) 500 MG tabletIndicati ons:Viral URI Take 1 tablet (500 mg) by mouth every 6 (six) hours if needed for mild pain, fever, headaches or moderate pain. 30 tablet 07/23/19 23 Active hydrOXYzine HCl (Atarax) 25 MG tabletIndicati ons:Anxiety with depression Take 1 tablet (25 mg) by mouth if needed in the morning, at noon, and at bedtime for itching. 90 tablet 3 12/05/19 23 Active buPROPion SR (Wellbutrin SR) 150 MG 12 hr tabletIndicati ons:Depressive disorder TAKE 1 TABLET (150 MG) BY MOUTH ONCE DAILY. DO NOT CRUSH, CHEW, OR SPLIT. 30 tablet 2 01/05/20 23 Active Additional Information Patient taking differently: 200 mgOral Once Daily, Do not crush, chew, or split., Reported on 09/21/2024 amitriptyline (Elavil) 25 MG tabletIndicati ons:Migraine aura without headache,Anxie ty with depression TOME DEVEN TABLETA POR VIA ORAL AL ACOSTARSE 30 tablet 04/12/20 23 Active venlafaxine XR (Effexor XR) 37.5 MG 24 hr capsuleIndicat ions: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 Take 2 capsules (75 mg) by mouth Once per day. Do not crush or chew. 60 capsule 1 10/24/19 25 026 Active betamethasone valerate (Valisone) 0.1 % creamIndicatio ns:Irritant contact dermatitis, unspecified trigger Apply topically if needed in the morning and at bedtime (dryness). 45 g 2 04/13/20 25 Active fluticasone (Flonase) 50 MCG/ACT nasal sprayIndicatio ns:Seasonal allergic rhinitis, unspecified trigger Administer 1-2 sprays into each nostril Once per day. Shake gently. Before first use, prime pump. After use, clean tip and replace cap. 48 mL 06/23/19 26 027 Active SUMAtriptan (Imitrex) 25 MG tabletIndicati ons:Migraine aura without headache TAKE 1 TABLET BY MOUTH 1 TIME IF NEEDED FOR MIGRAINE. MAY REPEAT DOSE ONCE IN 2 HOURS IF NO RELIEF. DO NOT EXCEED 2 DOSES IN 24 HOURS. 9 tablet 1 06/23/19 26 Active Multiple Vitamin (multivitamin) tabletIndicati ons:S/P bariatric surgery Take 1 tablet by mouth Once per day. 90 tablet 1 06/23/19 26 Active SUMAtriptan (Imitrex) 25 MG tabletIndicati ons:Migraine aura without headache TAKE 1 TABLET BY MOUTH 1 TIME IF NEEDED FOR MIGRAINE. MAY REPEAT DOSE ONCE IN 2 HOURS IF NO RELIEF. DO NOT EXCEED 2 DOSES IN 24 HOURS. 9 tablet 1 11/21/19 25 026 Discontinued(R eorder (will not trigger notification to Pharmacy)) fluticasone (Flonase) 50 MCG/ACT nasal sprayIndicatio ns:Seasonal allergic rhinitis, unspecified trigger ADMINISTER 1-2 SPRAYS INTO EACH NOSTRIL ONCE PER DAY. SHAKE GENTLY. BEFORE FIRST USE, PRIME PUMP. AFTER USE, CLEAN TIP AND REPLACE CAP. 48 mL 04/19/20 25 026 Discontinued(R eorder (will not trigger notification to Pharmacy)) Active Problems Problem Noted Date Diagnosed Date S/P bariatric surgery 06/23/2025 Eczema 12/21/2024 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 [...] Plan (02/07/2024 1:00 PM EDT): Refer to Microgrinder Operator. Chronic pain of left knee 10/24/2022 Assessment [...] Encounters Date Type Department Care Team Description 06/23/2025 3:30 PM EST Office Visit [facility] [address] [place] [phone] Magaly Mcrae MD Seasonal allergic rhinitis, unspecified trigger; Migraine aura without headache; Dietary counseling; Exercise counseling; Overweight; Anxiety with depression; S/P bariatric surgery 06/23/2025 Travel 06/22/[address] [address] Magaly Mcrae MD chart prep 06/16/2025 Travel 06/16/2025 Patient Outreach [address] [address] Magaly Mcrae MD 05/13/[address] [address] Magaly Mcrae MD Referral 05/10/2025 Orders Only GENERIC EXTERNAL DATA DEPARTMENT Provider, Generic External Data 04/29/2025 Results Follow-Up [address] Abdomen Pelvis w/ Contrast, CBC auto differential, Hepatic Function Panel, Additional followed-up results: 13 04/28/2025 Orders Only GENERIC EXTERNAL DATA DEPARTMENT Provider, [facility] External Data 04/17/[address] [address] Magaly Mcrae MD Seasonal allergic rhinitis, unspecified trigger 04/14/2025 Telephone [facility] [address] [place] [address] Magaly Mcrae MD Care Coordination (ICP Care Plan) 04/13/2025 3:15 PM EST Office Visit [address] [address] Magaly Mcrae MD Encounter for preventive care (Primary Dx); Dietary counseling; Exercise counseling; Post-surgical hypoparathyroidism; Irritant contact dermatitis, unspecified trigger 04/13/2025 Travel 04/12/[address] [address] Magaly Mcrae MD Chart Prep 04/06/2025 Orders Only GENERIC EXTERNAL DATA DEPARTMENT Provider, Generic External Data 04/06/2025 Patient Outreach [facility] [address] [place], [place] [phone] Magaly Mcrae MD Pre-visit Planning ([facility] unable to reach [facility]) 04/05/[address] [phone] Magaly Mcrae MD tammy recall 04/05/2025 Results Follow-Up [address] [address] Stan Marks, ELENIM Prothrombin Time-INR, Partial Thromboplastin Time, Activated (APTT), CBC auto differential, Additional followed-up results: 2 04/02/2025 Orders Only [address] [phone] Magaly Mcrae MD Eczema, unspecified type (Primary Dx) 04/02/[address] [phone] Magaly Mcrae MD Referral from Last 3 [...] Sign Reading Time Taken Comments Blood Pressure 100/62 06/23/2025 3:41 PM EST Pulse 64 06/23/2025 3:41 PM EST Temperature 34.1 C (93.3 F) 06/23/2025 3:41 PM EST Respiratory Rate 17 06/23/2025 3:41 PM EST Oxygen Saturation 97% 06/23/2025 3:41 PM EST Inhaled Oxygen Concentration - - Weight 66.5 kg (146 lb 9.6 oz) 06/23/2025 3:41 P M EST Height 162.6 cm (5' 4 ) 06/23/2025 3:41 PM EST Body Mass Index 25.16 06/23/2025 3:41 PM EST Plan of Treatment Health Maintenance Due Date Last Done Comments HPV Vaccines (1 - 3-dose series) 11/29/1995 Hepatitis B Vaccines (1 of 3 - 19+ 3-dose series) 11/29/1999 DTaP/Tdap/Td Vaccines (2 - Td or Tdap) 02/02/2024 02/01/2014, 02/26/2008 COVID-19 Vaccine ( - 2024- season) 2025 Influenza Vaccine (#1) 2025 9, 04/03/2013, 04/11/2012 Depression Monitoring 10/11/2025 04/13/2025, 025 Disability Screening 12/21/2025 12/21/2024 Family Planning (PISQ) 01/05/2026 01/05/2025 Mammogram 01/22/2026 01/22/2025, 01/08, 01/22/2025, Additional history exists Alcohol/Substance Use Screening 04/13/2026 04/13/2025 SDOH Screening 06/16/2026 06/16/2025 Tobacco Screening 06/23/2026 06/23/2025 Lipid Panel 11/13/2029 11/13/2024, 03/12, 08/31/2022 Cervical [...] 05/10/2025 12:45 PM EST Comment:Abdom Fld Narrative [facility] - 05/23/2025 9:25 AM EST Abdominal swab Gram stain results: No polys 4+ Gram-negative rods Abdominal swab Pseudomonas aeruginosa Quant Org ID 3+ Gram negative noe Quant Org ID 4+ ORGANISM #2 SENT TO REFERENCE LAB FOR IDENTIFICATION AND SUSCEPTIBILITY TESTING -- ORGANISM #2 AEROBIC BACTERIUM ID AND SUSCEPTIBILITY Micro Number: [id number] Test Status: Final Specimen Source: Abdominal fluid [...] = See Therapy Comment Testing Performed by: [facility] [address] [place] [phone] Quality Assurance Supervisor Body: Kei Nicole M.D. Pseudomonas aeruginosa: Cefepime 0.5(S) Pseudomonas aeruginosa: Ciprofloxacin >=4(R) Pseudomonas aeruginosa: Gentamicin <=1(S) Pseudomonas aeruginosa: Meropenem 1(S) Pseudomonas aeruginosa: Piperacillin/Tazobactam <=4(S) Specimen Source: Abdominal Fluid us Generic External Data Provider HISTORICAL/NON OR DERABLE LABS Final Result Performing Organization Address City/[facility] Co de Phone Number [facility] [address] [place] [phone] * CT Abdomen Pelvis w/ Contrast (04/28/2025 4:35 PM EST) Anatomical Region Laterality Modality Body, Pelvis, Abdomen Computed T omography 04/28/2025 4:35 PM EST Narrative 04/28/2025 5:04 PM EST [address] [address] [address] Scan Report Signed Patient: Aurora Ferrara MR#: [id number] : 1980 Acct:[id number] Age/Sex: 44 / F ADM Date: 04/28/25 Loc: HO.ED Attending Dr: Ordering Physician: Luisa Joyner Date of Service: 04/28/25 Procedure(s): CT abdomen pelvis w IV con Accession Number(s): [id number] cc: Luisa Joyner; [facility] Report Number: [id number]: Total DLP = 475.00 mGy-cm Reason for [...] by: Todd Nguyễn MD 04/28/2025 05:[address] [facility] Dictated By: Todd Nguyễn MD Signed By: <Electronically signed by Todd Nguyễn MD in OV> 04/28/25 1702 DD/ 1635 TD/TT: 04/28/25 1647 Doctor Naturopathic: Procedure Note Donotuseinterpreter, Image - 04/28/[address] [address] [address] Scan Report Signed Patient: Aurora Ferrara MMR#: [id number] : 1980Acct:[id number] Age/Sex: 44 / FADM Date: 11/19/25 Loc: HO.ED Attending Dr: Ordering Physician: Luisa Joyner Date of Service: 04/28/25 Procedure(s): CT abdomen pelvis w IV con Accession Number(s): [id number] cc: Luisa Joyner; [facility] Report Number: [id number]: Total DLP = 475.00 mGy-cm Reason for [...] 04/28/25 1702 DD/ 1635 TD/TT: 04/28/25 1647 Doctor Naturopathic: [facility] External Provider IMG CT PROCEDURES Final Result * Lactic Acid (04/28/2025 12:47 PM EST) Lactic Acid 1.3 0.5 - 2.0 mmol/L [facility] 04/28/2025 12:4 7 PM EST 04/28/2025 12:51 PM EST Generic External Data Provider LAB BLOOD ORDERAB LES Final Result [facility] [address] [place] [address] [phone] * Blood Culture (First) (04/28/2025 12:36 PM EST) Blood Venous blood specimen / Unknown 04/28/2025 12:36 PM EST 04/28/2025 12:40 PM EST Comment:Blood Narrative [facility] - 05/03/2025 2:41 PM EST Blood Culture (First) No growth after 5 days. Specimen Source: Blood us Generic External Data Provider LAB MICROBIOLOGY - GENERAL ORDERABLES Final Result Performing Organization Address City/[facility] Co de Phone Number [facility] [address] [place] [phone] * Blood Culture (Second) (04/28/2025 12:36 PM EST) Blood Venous blood specimen / Unknown 04/28/2025 12:36 PM EST 04/28/2025 12:40 PM EST Comment:Blood [facility] - 05/03/2025 2:41 PM EST Blood Culture (Second) No growth after 5 days. Specimen Source: Blood us Generic External Data Provider LAB MICROBIOLOGY - GENERAL ORDERABLES Final Result Performing Organization Address City/[facility] Co de Phone Number [facility] [address] [place] [phone] * CBC auto differential (04/28/2025 12:36 PM EST) Only the most recent of2 resultswithin the time period is included. White Blood Count 4.9 4.8 - 10.8 X10*3/uL [facility] Red Blood Count 4.34 4.20 - 5.50 X10*6/uL [facility] Hemoglobin 13.5 12.0 - 16.0 g/dl [facility] Hematocrit 39.7 37.0 - 47.0 % [facility] Mean Corpuscular Volume 91.5 80.0 - 98.0 fL [facility] Mean Corpuscular Hemoglobin 31.1 27.0 - 33.0 pg [facility] Mean Corpuscular HGB Conc 34.0 31.0 - 35.0 g/dl [facility] Red Cell Distribution Width 11.3 11.0 - 16.0 % [facility] Platelet Count 280 160 - 400 X10*3/uL [facility] Mean Platelet Volume 9.5 9.4 - 12.3 fL [facility] Neutrophils Percent Auto 64.6 45 - 73 % [facility] Imm Gran Pct Auto 0.2 0.0 - 0.4 % [facility] Lymphocytes Percent Auto 25.9 20 - 40 % [facility] Monocytes Percent Auto 7.9 2 - 11 % [facility] Eosinophils Percent Auto 1.0 0 - 4 % [facility] Basophils Percent Auto 0.4 0 - 2 % [facility] NRBC Pct Auto 0.0 0.0 - 0.2 /100WBC [facility] Neutrophils Absolute Auto 3.2 2.0 - 8.3 x10*3/uL [facility] Imm Gran Abs Auto 0.01 0.00 - 0.03 X10*3/uL [facility] Lymphocytes Absolute Auto 1.3 1.2 - 4.9 X10*3/uL [facility] Monocytes Absolute Auto 0.4 0.1 - 1.2 X10*3/uL [facility] Eosinophils Absolute Auto 0.1 0.0 - 0.4 X10*3/uL [facility] Basophils Absolute Auto 0.0 0.0 - 0.2 X10*3/uL [facility] NRBC Abs Auto 0.000 0.0 - 0.012 X10*3/uL [facility] 04/28/2025 12:3 6 PM EST 04/28/2025 12:40 PM EST us Generic External Data Provider LAB BLOOD ORDERAB LES Final Result [facility] [address] [place] [address] [phone] * hCG, Total, Quantitative (04/28/2025 12:36 PM EST) HCG Quantitative 4 mIU/mL [facility] Comment:Weeks post LMP Appro ximate hCG(Last Menstrual Period) Range (mIU/ml)3 - 4 weeks 9 - 1304 - 5 weeks 75 - 2,6005 - 6 weeks 850 - 20,8006 - 7 weeks 4000 - 100,2007 - 12 weeks 11,500 - 289,90246 - 16 weeks 18,300 - 137,51334 - 29 weeks (2nd trimester) 1,400 - 53,34093 - 41 weeks (3rd trimester) 940 - [...] ORDERAB LES Final Result Performing Organization Address City/[facility]/ZIP Co de Phone Number [facility] [address] [place] [phone] * Magnesium (04/28/2025 12:36 PM EST) Pathologist [facility] Magnesium 2.2 1.6 - 2.6 mg/dL [facility] 04/28/2025 12:3 6 PM EST 04/28/2025 12:40 PM EST Generic External Data Provider LAB BLOOD ORDERAB LES Final Result Performing Organization Address [facility] Co de Phone Number [facility] [address] [place] [phone] * Lipase (04/28/2025 12:36 PM EST) Pathologist [facility] Lipase 28 8 - 78 U/L [facility] 04/28/2025 12:3 6 PM EST 04/28/2025 12:40 PM EST Generic External Data Provider LAB BLOOD ORDERAB LES Final Result Performing Organization Address City/[facility]/ZIP Co de Phone Number [facility] [address] [place] [phone] * (ABNORMAL) Hepatic Function Panel (04/28/2025 12:36 PM EST) Bilirubin, Total 0.7 0.0 - 1.0 mg/dL [facility] Bilirubin, Direct 0.2 0.0 - 0.5 mg/dL [facility] Aspartate Amino Transferase 29 5 - 31 U/L [facility] Alanine Aminotransferase 48(H) 0 - 31 U/L [facility] Total Protein 7.7 6.5 - 8.0 g/dL [facility] Albumin Level 4.8 3.5 - 5.0 g/dL [facility] Alkaline Phosphatase 84 39 - 117 U/L [facility] 04/28/2025 12:3 6 PM EST 04/28/2025 12:40 PM EST Generic External Data Provider LAB BLOOD ORDERAB LES Final Result Performing Organization Address City/[facility]/ZIP Co de Phone Number [facility] [address] [place] [phone] * (ABNORMAL) Basic Metabolic Panel (04/28/2025 12:36 PM EST) Sodium 139 135 - 145 mmol/L [facility] Potassium 3.8 3.3 - 5.1 mmol/L [facility] Chloride 104 96 - 108 mmol/L [facility] Carbon Dioxide 28 22 - 29 mmol/L [facility] Anion Gap 11(L) 12 - 20 [facility] Urea Nitrogen (BUN) 16 9 - 16 mg/dL [facility] Creatinine, Serum 0.53 0.5 - 1.4 mg/dL [facility] Creatinine Clr Calc Pharmacy 121.8 [facility] Comment:Provided height and weight: 165.1 cm,67.132 kg.eGFR (calculated from the MDRD study equation) and eCrCl(calculated from the Cockcroft-Gault equation) are based ondifferent parameters and may not yield comparable results.If eCrCl result is absurd, please check patient'sheight/weight. Estimated Glomerular Filt Rate >60 [facility] Comment:Chronic Kidney Disea se: Estimated GFR < 60 mL/min/1.26d5Yrorpl Kidney Disease: Estimated GFR < 15 mL/min/1.73m2 Glucose 83 60 - 115 mg/dL [facility] Calcium 9.7 8.4 - 10.2 mg/dL [facility] 04/28/2025 12:3 6 PM EST 04/28/2025 12:40 PM EST us Generic External Data Provider LAB BLOOD ORDERAB LES Final Result Performing Organization Address [facility] Co de Phone Number [facility] [address] [place] [phone] * Amylase, Peritoneal Fluid (04/28/2025 10:28 AM EST) Amylase, Peritoneal Fluid 38 [facility] Comment:Units: U/LThe refere nce range and other method performancespecifications have not been established for this bodyfluid. The test result must be integrated into the clinicalcontext for interpretation.Testing performed at: [facility] [address] [place] [address] 04/28/2025 10:2 8 AM EST 04/28/2025 12:13 PM EST Generic External Data Provider LAB BODY FLUIDS A ND STOOLS ORDERABLES Final Result Performing Organization Address [facility]/ZIP Co de Phone Number [facility] [address] [place] [phone] * Glucose Peritoneal Fluid (04/28/2025 10:28 AM EST) Glucose, Peritoneal Fluid <2 [facility] Comment:Units: MG/DLThe refe rence range and other method performancespecifications have not been established for this bodyfluid. The test result must be integrated into the clinicalcontext for interpretation.Testing performed at: [facility] [address] [place] [address] 04/28/2025 10:2 8 AM EST 04/28/2025 12:13 PM EST Generic External Data Provider LAB BODY FLUIDS A ND STOOLS ORDERABLES Final Result Performing Organization Address [facility] Co de Phone Number [facility] [address] [place] [phone] * Albumin Peritoneal Fluid (04/28/2025 10:28 AM EST) Albumin Peritoneal Fluid 1.0 [facility] Comment:Units: GM/DLThe refe rence range and other method performancespecifications have not been established for this bodyfluid. The test result must be integrated into the clinicalcontext for interpretation.Testing performed at: [facility] [address] [place] [address] 04/28/2025 10:2 8 AM EST 04/28/2025 12:13 PM EST Generic External Data Provider LAB BODY FLUIDS A ND STOOLS ORDERABLES Final Result Performing Organization Address City/[facility]/ZIP Co de Phone Number [facility] [address] [place] [phone] * Other Reference Test - Misc (04/28/2025 10:28 AM EST) Other Ref Test Misc SEE NOTE [facility] Comment:See scanned report i n EMR 04/28/2025 10:2 8 AM EST 04/28/2025 12:13 PM EST Narrative [facility] - 04/29/2025 7:27 AM EST bilirubin level for intraabdominal fluid Generic External Data Provider LAB BLOOD ORDERAB LES Final Result Performing Organization Address [facility] de Phone Number [facility] [address] [place] [phone] * Creatinine, body fluid (04/28/2025 10:28 AM EST) Creatinine Peritoneal Fluid 1.3 [facility] Comment:Units: MG/DLThe refe rence range and other method performancespecifications have not been established for this bodyfluid. The test result must be integrated into the clinicalcontext for interpretation.Testing performed at: [facility] [address] [place] [address] 04/28/2025 10:2 8 AM EST 04/28/2025 12:13 PM EST Generic External Data Provider LAB BODY FLUIDS A ND STOOLS ORDERABLES Final Result Performing Organization Address [facility] de Phone Number [facility] [address] [place] [phone] * Gross and Microscopic Level 2 (04/06/2025 11:22 AM EDT) 04/06/2025 11:2 2 AM EDT 04/06/2025 1:50 PM EDT Turner [facility] - 04/09/2025 10:21 AM EDT ----- ------- Name: JosiasAurora Maty Age/Sex: 44/F : 1980 Unit#: [id number] Attend Dr: Kashmir Freeman MD Re04/06/25 Status: [facility] Location: [facility] Disch: ----- ------- SPEC : [id number] RECD: 04/06/25 STATUS: NELI JOHN NUM: [id number] ROYCE: 04/06/25 [facility] DR: Kashmir Freeman MD ENTERED: 04/06/25 SP TYPE: Surgical OTHR DR: [facility] ORDERED: Gross Micro L2, Gross Micro [...] fibrofatty subcutaneous soft tissue without discrete abnormality. Building Services Technician sections are submitted in cassettes A1 [...] developed and their performance characteristics determined by [facility]. They have not been cleared [...] Aurora Ferrara Age/Sex: 44/F : 1980 Unit#: [id number] Attend Dr: Kashmir Freeman MD Re04/06/25 [place] [facility] [facility] Disch: ----- ------- SPEC : [id number] RECD: 04/06/25 STATUS: NELI JOHN NUM: [id number] ROYCE: 04/06/[address]: Kashmir Freeman MD ENTERED: 04/06/25 SP TYPE: Surgical OTHR DR: STAN [facility]KS CNM ORDERED: Gross Micro L2, Gross Micro L3 Copies To: Kashmir Freeman MD [facility] [address] [place] [phone] STAN [facility]KS CNM [address] [id number] ----- ------- Signed (signature on file) Katharina Duron MD 04/09/25 1021 ----- ------- END OF REPORT Generic External Data Provider LAB CYTOLOGY ORDE RABLES Final Result Performing Organization Address [facility] Co de Phone Number [facility] [address] [place] [phone] * Partial Thromboplastin Time, Activated (APTT) (04/02/2025 1:27 PM EDT) Partial Thromboplastin Time 33.6 26.7 - 34.1 SEC [facility] 04/02/2025 1:27 PM EDT 04/02/2025 1:47 PM EDT Generic External Data Provider LAB BLOOD ORDERAB LES Final Result Performing Organization Address [facility] de Phone Number [facility] [address] [place] [phone] * (ABNORMAL) Prothrombin Time-INR (04/02/2025 1:27 PM EDT) Prothrombin Time 14.0(H) 10.9 - 12.4 SEC [facility] INTERNATIONAL NORM RATIO 1.2(H) 0.9 - 1.1 [facility] Comment:INTERNATIONAL NORMAL IZED RATIO (INR) [...] ORDERAB LES Final Result Performing Organization Address [facility] de Phone Number [facility] [address] [place] [phone] * Type and screen (04/02/2025 1:27 PM EDT) [facility] Blood Type ON [facility] Antibody Screen NEGATIVE [facility] 04/02/2025 1:27 PM EDT 04/02/2025 1:40 PM EDT Narrative [facility] - 04/02/2025 2:20 PM EDT WITNESSED BY [place].Spec expiration changed by JIMMY on 04/02/25Reason: ANANTH SSSNURSING:Call Blood Bank (ext. [phone]) to band patient on admission.Type and Screen in effect until 2300 on 04/06/25. Generic External Data Provider LAB BLOOD BANK TE ST ORDERABLES Final Result Performing Organization Address [facility] de Phone Number [facility] [address] [place] [phone] * (ABNORMAL) Comprehensive Metabolic Panel (04/02/2025 1:27 PM EDT) [facility] Sodium 141 135 - 145 mmol/L [facility] Potassium 3.5 3.3 - 5.1 mmol/L [facility] Chloride 106 96 - 108 mmol/L [facility] Carbon Dioxide 27 22 - 29 mmol/L [facility] Anion Gap 12 12 - 20 [facility] Urea Nitrogen (BUN) 17(H) 9 - 16 mg/dL [facility] Creatinine, Serum 0.51 0.5 - 1.4 mg/dL [facility] Creatinine Clr Calc Pharmacy 135.2 [facility] Comment:Provided height and weight: 163.83 cm,70.125 kg.eGFR (calculated from the MDRD study equation) and eCrCl(calculated from the Cockcroft-Gault equation) are based ondifferent parameters and may not yield comparable results.If eCrCl result is absurd, please check patient'sheight/weight. Estimated Glomerular Filt Rate >60 [facility] Comment:Chronic Kidney Disea se: Estimated GFR < 60 mL/min/[id number] Kidney Disease: Estimated GFR < 15 mL/min/1.73m2 Glucose 78 60 - 115 mg/dL [facility] Calcium 9.2 8.4 - 10.2 mg/dL [facility] Bilirubin, Total 0.7 0.0 - 1.0 mg/dL [facility] Aspartate Amino Transferase 25 5 - 31 U/L [facility] Alanine Aminotransferase 24 0 - 31 U/L [facility] Total Protein 6.9 6.5 - 8.0 g/dL [facility] Albumin Level 4.5 3.5 - 5.0 g/dL [facility] Alkaline Phosphatase 72 39 - 117 U/L [facility] 04/02/2025 1:27 PM EDT 04/02/2025 2:14 PM EDT us Generic External Data Provider LAB BLOOD ORDERAB LES Final Result [facility] [address] [place] [phone] * BI US Breast Limited Right (01/22/2025 11:06 AM EDT) Anatomical Region Laterality Modality Breast Right Ultrasound 01/22/2025 11:0 6 AM EDT Narrative 01/22/2025 11:38 AM EDT [facility] [address] [place], [place] [address] Ultrasound Report Signed Patient: Aurora Ferrara MR#: [id number] : 1980 Acct:[id number] Age/Sex: 44 / F ADM Date: 01/22/25 Loc: HO.MAMMO Attending Dr: Stan Makrs CNM Ordering Physician: STAN MARKS CNM Date of Service: 01/22/25 Procedure(s): US breast RT limited Accession Number(s): [id number] cc: STAN MARKS CNM EXAMINATIONS: 1. MM [...] 01/22/25 1135 DD/ 1106 TD/TT: 01/22/25 1120 Doctor Naturopathic: Procedure Note Donotuseinterpreter, Image - 01/22/2025 [facility] [address] [place] [address] Ultrasound Report Signed Patient: Aurora Ferrara [facility]#: [id number] : 1980Acct:[id number] Age/Sex: 44 / FADM Date: 01/22/25 Loc: HO.MAMMO Attending Dr: Stan Marks CNM Ordering Physician: STAN MARKS CNM Date of Service: 01/22/25 Procedure(s): US breast RT limited Accession Number(s): [id number] cc: STAN MARKS CNM EXAMINATIONS: 1. MM [...] 01/22/25 1135 DD/ 1106 TD/TT: 01/22/25 1120 Doctor Naturopathic: us Stan KNOWLES IM US PROCEDURES Final R esult * HPV DNA, Low/High Risk (01/05/2025 2:20 PM EDT) HPV High Risk Negative Negative [facility] HPV Genotype 16 Negative Negative [facility] HPV Genotype 18 Negative Negative [facility] Comment:HPV testing performe d at [facility] (CLIA#[id number]), [address] [place] [address].Testing for HPV was performed using the [employer] Parallel Universe0system. The presence of HPV in the female [...] CNM LAB BLOOD ORDERABLES Delphine dillard Result [facility] [address] [place] [phone] * Pap Smear (01/05/2025 2:20 PM EDT) Swab Cervix uteri structure / Unknown 01/05/2025 2:20 PM EDT 01/06/2025 7:35 AM EDT Narrative [facility] - 01/19/2025 8:59 AM EDT ----- ------- Name: Aurora Ferrara Age/Sex: 44/F : 1980 Unit#: [id number] Attend Dr: STAN MARKS CNM Re01/05/25 Status: JOSE REF Location: [facility] Disch: ----- ------- SPEC : [id number] RECD: 01/06/25 STATUS: NELI JOHN NUM: [id number] ROYCE: 01/05/25-1420 [facility] DR: STAN MARKS CNM ENTERED: 01/06/25 SP TYPE: Pap Smr OT : ORDERED: Pap Smear Interpretation Satisfactory [...] and HPV testing will be performed at [facility] (CLIA #[id number]), [address] [place] [address]. Testing for HPV was performed using the [employer] Parallel Universe0 system. The presence of HPV in the [...] detected. All professional services are performed by [facility] ([address] [place] [address]; ; CLIA #[id number]). The PAP Test is a screening procedure with the inherent possibility of both false negative and false positive results. Results should be interpreted in the context of historic and current clinical findings. Reliability of the PAP Test is enhanced by performing the test on a regular repetitive basis. CONTINUED ON NEXT PAGE ----- ------- Name: Aurora Ferrara Age/Sex: 44/F : 1980 Unit#: [id number] Attend Dr: STAN MARKS CNM Re01/05/25 Status: DEP REF Location: [facility] Disch: ----- ------- SPEC : [id number] RECD: 01/06/25 STATUS: NELI JOHN NUM: [id number] ROYCE: 01/05/25-14[address] [facility] DR: STAN MARKS CNM ENTERED: 01/06/25 SP TYPE: Pap Kamini HURST DR: ORDERED: Pap Smear ----- ------- Signed (signature on file) KYRA Edwards (ASCP) 01/19/25 0859 ----- ------- END OF REPORT Stan Marks CNM LAB CYTOLOGY ORDERABLES F inal Result [facility] [address] [place] [phone] * Lipid Panel, Standard (11/13/2024 9:53 AM EDT) Triglycerides 46 <150 mg/dL [facility] Comment:Desirable Triglyceri de: less than 150 mg/dLBorderline High Triglyceride 150-199 mg/dLHigh Triglyceride: 200-499 mg/dLVery High Triglyceride: greater than or equal to 5OO mg/dL Cholesterol 172 <200 mg/dL [facility] Comment:Desirable Cholestero l: less than 200 mg/dLBorderline High Cholesterol: 200-239 mg/dLHigh Cholesterol: greater than 239 mg/dL LDL Cholesterol Calculated 94 <100 mg/dL [facility] Comment:Desirable LDL: less than 100 [...] ORDERAB LES Final Result Performing Organization Address City/[facility] Co de Phone Number [facility] [address] [place] [phone] * Hepatitis C Antibody with Reflex to HCV, RNA, Quantitative, Real-Time PCR (04/09/2024 12:15 PM EDT) Hepatitis C Antibody Nonreactive Nonreactive [facility] Comment:Antibodies to HCV no t detected; does not exclude early acuteHCV infection. Blood Venous blood specimen / Unknown 04/09/2024 12:15 PM EDT 04/09/2024 1:17 PM EDT us Magaly Maldonado MD LAB BLOOD ORDERABLES Final Result [facility] [address] [place] [phone] * HIV-1/2 Antigen and Antibodies, Fourth Generation, with Reflexes (04/09/2024 12:15 PM EDT) HIV AB/AG Nonreactive Nonreactive [facility] Comment:HIV-1 p24 Ag and/or HIV-1/HIV-2 Ab not detected.A test result that is nonreactive does not exclude thepossibility of exposure to or infection with HIV-1 and/orHIV-2. Nonreactive results in this assay for individualswith prior exposure to HIV-1 and/or HIV-2 may be due toantigen and antibody levels that are below the limit ofdetection of this assay.The [employer] HIV Ag/Ab Combo assay result andsupplemental assay results should be interpreted inconjunction with the patient's clinical presentation,history and other laboratory results. If the results areinconsistent with clinical evidence, additional testing issuggested to confirm the result. Blood Venous blood specimen / Unknown 04/09/2024 12:15 PM EDT 04/09/2024 1:17 PM EDT Magaly Maldonado MD LAB BLOOD ORDERABLES Final Result Performing Organization Address [facility] Co de Phone Number [facility] [address] [place] [phone] from Last 3 Months or Most Recently Relevant to Health Maintenance Insurance [facility] C3 Care Teams Dock Hand Relationship Specialty Start Date End Date Magaly Mcrae MD [address] [place] [id number] PCP - General Family Medicine 02/19/18 Anne Marie Reza [employer]pe ScraperAssistant Distribution Manager 04/14/25
== END 2025-05-05 00:01 ==
LOC: CF
PROVIDERS: PCP Advanced Practice Midwife; Visit Provider Nurse Practitioner
DX: Z98.890 Other specified postprocedural states (principal)
CPT/HCPCS: 99212

== ENCOUNTER 2025-05-05 11:47 | Outpatient (AMB) | payer MEDICAID, SELFPAY ==
--- NOTE | 2025-05-05 12:14 | MHC.OFFVISWM ---
VS Expanded 05/05/25 12:15 BP 98/50 L Blood Pressure Location Rt brachial Blood Pressure Position Sitting Pulse 63 Pulse Source Pulse Oximeter Temp 98.6 F Temperature Source Temporal Artery Scan Pulse Oximetry 97 Oxygen Delivery Method Room Air Intake Visit Reasons: OV Panniculectomy 04/06/25 Allergies No Known Allergies Allergy (Verified 04/28/25 12:10) HPI Comments Details: 44 year old woman s/p panniculectomy 04/06/2025. On 04/28/2025, patient presented to office with reports of +odor x4 days and green drain output x1 day. She denied fevers at home but feels medical insurance collector abdomen. Thought pain had increased in abdomen. Fluid from her drain was sent to the lab, and she was referred to the ER for CT abdomen and blood work. Lab and imaging results below. ABX was changed from Keflex BID to Doxycycline BID and Levofloxacin QD. On 04/30/2025, she presented to office for recheck of surgical site and flushing of the drain. She was flushed with a total of 20cc 50% saline/50% hydrogen peroxide. On 05/03/2025, she presented for recheck and repeat flushing. She reported drain output was 10cc each day over the weekend. She denied any odor or green colored output since flushing. Increased abd pain/discomfort in this area, to the point that she was given prn Oxycodone, which was helpful. Denied constitutional symptoms or feeling ill/feverish. Today, she presents for recheck and repeat flushing. She reports drain output 20cc the other day, and 10cc this morning. No green, no odor. Denies constitutional symptoms. Still taking ABX as prescribed. No pain. [facility] Medical History Postgastrectomy malabsorption GERD (gastroesophageal reflux disease) Depression Hx of bipolar disorder Panic attack Surgical History History of sleeve gastrectomy History of endometrial ablation H/O parathyroidectomy History of esophagogastroduodenoscopy (EGD) History of tonsillectomy and adenoidectomy Hx of tubal ligation Family History Mother Heart disease Arthritis Father Liver disease Herniated disc Brother No problems noted. Brother No problems noted. Brother No problems noted. Sister Diabetes Sister Migraine Sister HIV disease Sister No problems noted. Sister No problems noted. Daughter Asthma Son No problems noted. Paternal Aunt Breast cancer Social History Household Members: Family Housing: Apartment Are you a primary home care rn to a significant other at home: No Do you presently have visiting nurse or other home services: No 75 years or older and lives alone: No Alcohol intake: never Patient Tobacco Use Status: Former Tobacco user Tobacco use type: Cigarette Substance Use Type: Marijuana service: No Current occupational status: unemployed Female Reproductive History Menstrual Age of Menarche: 13 Physical Exam Vital Signs: Last Vital Signs Temp 98.6 F 05/05/25 12:15 Pulse 63 05/05/25 12:15 BP 98/50 L 05/05/25 12:15 Pulse Ox 97 05/05/25 12:15 Oxygen Delivery Method Room Air 05/05/25 12:15 Const General: cooperative, healthy appearing, comfortable and no acute distress Orientation/consciousness: patient oriented x3 GI Other: abd soft non tender non distended. pain/discomfort around SHARYN drain site. panniculectomy incision and umbilicus appear to be healing well without erythema or open areas, drainage in bulb is serous with some sediment, does not appear to be purulent. No green noted. No odor. New DSD applied and SHARYN bulb re-attached. Neuro General: patient oriented x3 Results Reviewed Results Reviewed: Results Reviewed: CT abdomen/pelvis 04/28/2025 reports: IMPRESSION: 1. No acute findings in the abdomen or pelvis. 2. Subcutaneous stranding in the anterior subcutaneous abdominal fat related to recent panniculectomy. A surgical drain is in place in the inferior anterior abdominal wall. Just superior and right lateral of the umbilicus, just anterior to the rectus sheath, there is a 6 mm nonenhancing fluid collection which may represent a seroma. This does not appear definitively drainable. Fluid collected from SHARYN drain 04/28/2025: Creatinine 1.3 Albumin 1 Glucose < 2 Amylase 38 Bilirubin 2.7 Blood draw 04/28/2025: WBC 4.9 Cultures as of 05/03/2025: Organism 1 Pseudomonas aeruginosa Quantity 4+ Organism 2 Enterobacter cloacae complex Quantity 4+ Organism 3 Methicillin Res Staph Aureus Quantity 4+ Susceptible to tetracycline and ciprofloxacin Other results per chart Assessment & Plan Assessment & Plan (1) S/P panniculectomy: Code(s): Z98.890 - Other specified postprocedural states Category: Surgical Plan: - SHARYN was flushed the same as before. We disconnected the SHARYN bulb and flushed the drain with 10cc 50% hydrogen peroxide and 50% saline solution, withdrew approx 3.5cc watery pale white fluid, flushed with another 10cc solution, and withdrew approx 2cc of what appeared to be the flushing solution. She tolerated the procedure well, some increased pain/discomfort around the SHARYN drain even with slow flushes. Mild leakage of fluid around SHARYN drain insertion site when flushing. - She will continue her ABX as prescribed, doxycycline BID and levofloxacin QD. Per culture results, the bacteria is susceptible to tetracycline and ciprofloxacin. - Empty the drain as she has been, once in the morning, and record the outputs. - Continue meal plan - Call office for any concerns/questions, S&S worsening infection - Return to office Saturday. We will obtain fluid from the SHARYN bulb and send for cultures again. No more flushing. We will await results before removing SHARYN drain. Discussed with Dr. Tan Follow up: as scheduled on 05/10/2025
[2025-05-05 12:15] VITALS: BP 98/50; PULSE 63; TEMP 37; O2SAT 97
--- OUTSIDE RECORDS SUMMARY | 2025-05-05 14:57 | XMS_ITS | Encounter Summary ---
Author Organization [employer] Address [address] [facility] [address] [place] [address] Care Team Providers Care Assistant Professor Of Philosophy Name Role Phone Magaly Mcrae MD Primary Care Provide r Encounter Details Date Type Department Care Team ([facility] st Contact Info) Description 02/13/2024 Telephone [facility] MED[facility] [address] [place], [place] [phone] Magaly Mcrae MD [address] [place], [place] [phone] Social History Tobacco Use Types Packs/Day Years [...] 06/23/2025 3:30 PM EST Office Visit [facility] [address] [place] [phone] Magaly Mcrae MD [address] [place] [phone] documented as of this encounter Visit Diagnoses Not on filedocumented in this encounter Additional Health Concerns Assessment Noted Time PHQ-9 Depression Total Score: 11 023 3:07 PM EDT documented as of this encounter Care Teams Assistant Professor Of Philosophy Relationship Specialty Start Date End Date Magaly Mcrae MD [address] [place] [phone] PCP - General Family Medicine 02/19/18 Anne Marie Reza Polymer Materials ConsultantFacing Grinder 04/14/25 documented as of this encounter
--- OUTSIDE RECORDS SUMMARY | 2025-05-05 14:58 | XMS_ITS | Clinical Summary ---
Author Organization [address] [facility] Address [address] [place] [address] Phone Care Team Providers Care Appellate Court Clerk Name Role Phone Thu Tam MD Primary Care Provider + [phone] Allergies No known active allergies Medications DICLOFENAC [...] Department Care Team Description 02/04/2025 Lab Requisition [facility] - Main Lab [address] [place] [address] Bettina Sanford MD Abnormal uterine [...] LAB CHEMISTRY METHOD 02/04/2025 5:46 PM EDT [facility] Testosterone, Free 0.1 0.0 - 0.5 ng/dL LAB CHEMISTRY METHOD 02/04/2025 5:46 PM EDT [facility] Testosterone, Bioavailable 2 1 - 9 ng/dL LAB CHEMISTRY METHOD 02/04/2025 5:46 PM EDT [facility] Sex Hormone Binding 148.1 See Comment nmol/L LAB CHEMISTRY METHOD 02/04/2025 5:46 PM EDT [facility] Comment: FEMALES: pre-menopausal [...] LAB CHEMISTRY METHOD 02/04/2025 5:46 PM EDT [facility] Blood Venous blood specimen / Unknown Venipuncture / Unknown 02/04/2025 11:15 AM EDT 02/04/2025 12:47 PM EDT us Bettina Sanford MD LAB BLOOD ORDERABLES Fin al Result [facility] [address] [place] [address], * Sex hormone binding globulin (02/04/2025 11:15 AM EDT) Sex Hormone Binding 148.1 See Comment nmol/L LAB CHEMISTRY METHOD 02/04/2025 5:46 PM EDT [facility] Comment: FEMALES: pre-menopausal [...] ORDERABLES Fin al Result Performing Organization Address [facility] de Phone Number [facility] [address] [place] [address], * Progesterone (02/04/2025 11:15 AM EDT) Progesterone <0.2 ng/mL LAB CHEMISTRY METHOD 02/04/2025 2:58 PM EDT [facility] Comment: PROGESTERONE REFERENCE [...] ORDERABLES Fin al Result Performing Organization Address [facility] Co de Phone Number [facility] [address] [place] [address], [place] [phone] * Estradiol (02/04/2025 11:15 AM EDT) Estradiol <11 See below pcg/mL LAB CHEMISTRY METHOD 02/04/2025 1:45 PM EDT [facility] Comment: ESTRADIOL REFERENCE [...] MD LAB BLOOD ORDERABLES Ravi jose Result [facility] [address] [place] [address], * Luteinizing hormone (02/04/2025 11:15 AM EDT) [facility] Luteinizing Hormone 14.8 See Comment mIU/mL LAB CHEMISTRY METHOD 02/04/2025 1:45 PM EDT [facility] Blood Venous blood specimen / Unknown Venipuncture / Unknown 02/04/2025 11:15 AM EDT 02/04/2025 12:47 PM EDT Narrative [facility] - 02/04/2025 1:45 PM EDT LH REFERENCE RANGES (MIU/ML) FEMALES NORMALLY MENSTRUATING: FOLLICULAR PHASE 1.9 - 12.8 MIDCYCLE PEAK 22.8 - 76.1 LUTEAL PHASE 0.6 - 13.5 POSTMENOPAUSAL: ON HRT 1.1 - 52.4 UNTREATED 8.6 - 61.8 us Bettina Sanford MD LAB BLOOD ORDERABLES Fin al Result Performing Organization Address [facility] Co de Phone Number [facility] [address] [place] [address], * Follicle stimulating hormone (02/04/2025 11:15 AM EDT) Pathologist [facility] Follicle Stimulating Hormone 51.1 See Comment mIU/mL LAB CHEMISTRY METHOD 02/04/2025 1:45 PM EDT [facility] Comment: FSH REFERENCE [...] ORDERABLES Fin al Result Performing Organization Address [facility] Co de Phone Number [facility] [address] [place] [address], * Tissue Exam (02/04/2025) Pathologist [facility] Final Diagnosis Endometrial biopsy: Benign endocervical glandular epithelium and inflamed squamous epithelium No endometrium identified 02/05/2025 1:27 PM EDT [facility] Clinical Information Abnormal uterine bleeding 02/05/2025 1:27 PM EDT [facility] Gross Description A. Endometrium, biopsy: Labeled with the patient's name and information. Received in formalin is a 1.1 x 0.8 x 0.2 cm aggregate of irregular pink-red soft tissue fragments admixed with mucoid substance which is submitted in toto in a mesh bag in one cassette, multiple pieces, x 2. LENARD 02/05/2025 1:27 PM EDT [facility] Disclaimer Unless otherwise specified, all tissue is 10% NB formalin fixed and paraffin embedded. 02/05/2025 1:27 PM EDT [facility] Tissue Endometrial structure / Unknown 02/04/2025 02/04/2025 12:36 PM EDT us Bettina Sanford MD LAB PATHOLOGY ORDERABLES Final Result [facility] [address] [place] [address], [place] [phone] from Last 3 Months Insurance MEDICAID - [place] Care Teams Appellate Court Clerk Relationship Specialty Start Date End Date Thu Tam MD [address] [place] [phone] PCP - General Internal Medicine 03/13/24
--- OUTSIDE RECORDS SUMMARY | 2025-05-05 14:58 | XMS_ITS | Encounter Summary ---
Author Organization [facility] Address [address] [place] [address] Care Team Providers Care Inpatient Care Manager Rn Name Role Phone Thu Tam MD Primary Care Provider + [phone] Encounter Details Date Type Department Care Team (Late st Contact Info) Description 02/04/[address] [facility] - Main Lab [address] [place] [id number] Bettina Sanford MD [address] [facility] [address] [place] [phone] Abnormal uterine and vaginal bleeding, unspecified Social [...] endometrium identified 02/05/2025 1:27 PM EDT [facility] Clinical Information Abnormal uterine bleeding 02/05/2025 1:27 PM EDT [facility] Gross Description A. Endometrium, biopsy: Labeled with the patient's name and information. Received in formalin is a 1.1 x 0.8 x 0.2 cm aggregate of irregular pink-red soft tissue fragments admixed with mucoid substance which is submitted in toto in a mesh bag in one cassette, multiple pieces, x 2. LENARD 02/05/2025 1:27 PM EDT [facility] Disclaimer Unless otherwise specified, all tissue is 10% NB formalin fixed and paraffin embedded. 02/05/2025 1:27 PM EDT [facility] Tissue Endometrial structure / Unknown 02/04/2025 02/04/2025 12:36 PM EDT us Bettina Sanford MD LAB PATHOLOGY ORDERABLES Final Result [facility] [address] [place] [address], documented in this encounter Visit Diagnoses Diagnosis Abnormal uterine and vaginal bleeding, unspecified documented in this encounter Care Teams Inpatient Care Manager Rn Relationship Specialty Start Date End Date Thu Tam MD [address] [place] [phone] PCP - General Internal Medicine 03/13/24 documented as of this encounter
--- OUTSIDE RECORDS SUMMARY | 2025-05-05 14:58 | XMS_ITS | Clinical Summary ---
Author Organization [employer] Address [address] [facility] 7[address] [place] [address] Care Team Providers Care Supervisor Kosher Dietary Service Name Role Phone Magaly Mcrae MD Primary [...] Plan (02/07/2024 1:00 PM EDT): Refer to Electromechanical Inspector. Chronic pain of left knee 10/24/2022 Assessment [...] Department Care Team Description 04/29/2025 Results Follow-Up [facility] [address] [place] [phone] Abdomen Pelvis w/ Contrast, CBC auto differential, Hepatic Function Panel, Additional followed-up results: 13 04/28/2025 Orders Only GENERIC EXTERNAL DATA DEPARTMENT Provider, Generic External Data 04/17/2025 Refill [facility] [address] [place] [address] Magaly Mcrae MD Seasonal allergic rhinitis, unspecified trigger 04/14/2025 Telephone [facility] [address] [place] [address] Magaly Mcrae MD Care Coordination (ICP Care Plan) 04/13/2025 3:15 PM EST Office Visit [address] [address] Magaly Mcrae MD Encounter for preventive care (Primary Dx); Dietary counseling; Exercise counseling; Post-surgical hypoparathyroidism; Irritant contact dermatitis, unspecified trigger 04/13/2025 Travel 04/12/[address] [address] Magaly Mcrae MD Chart Prep 04/06/2025 Orders Only GENERIC EXTERNAL DATA DEPARTMENT Provider, Generic External Data 04/06/2025 Patient Outreach [facility] [address] [place], [place] [phone] Magaly Mcrae MD Pre-visit Planning ([facility] unable to reach [facility]) 04/05/[address] [address] Magaly Mcrae MD tammy recall 04/05/2025 Results Follow-Up [address] [address] Stan Marks CNM Prothrombin Time-INR, Partial Thromboplastin Time, Activated (APTT), CBC auto differential, Additional followed-up results: 2 04/02/2025 Orders Only [address] [address] Magaly Mcrae MD Eczema, unspecified type (Primary Dx) 04/02/[address] [phone] Magaly Mcrae MD Referral 02/15/2025 Patient Outreach [address] [phone] Magaly Mcrae MD Care Coordination ([facility] Efrain Torres, [facility] f/u, program graduation) from Last 3 Months [...] Description 06/23/2025 3:30 PM EST Office Visit [facility] [address] [place] [address] Magaly Mcrae MD [address] [place], [place] [phone] Health Maintenance Due Date Last Done Comments [...] PM EST Narrative 04/28/2025 5:04 PM EST [place] [address] [address] Scan Report Signed Patient: Aurora Ferrara MR#: [id number] : 1980 Acct:[id number] Age/Sex: 44 / F ADM Date: 04/28/25 Loc: HO.ED Attending Dr: Ordering Physician: Luisa Joyner Date of Service: 04/28/25 Procedure(s): CT abdomen pelvis w IV con Accession Number(s): [id number] cc: Luisa Joyner; STAN MARKS [facility] Report Number: [id number]: Total DLP = 475.00 mGy-cm Reason for [...] by: Todd Nguyễn MD 04/28/2025 05:02 PM [facility] Dictated By: Todd Nguyễn MD Signed By: <Electronically signed by Todd Nguyễn MD in OV> 04/28/25 1702 DD/ 1635 TD/TT: 04/28/25 1647 Die Reamer: Procedure Note Donotuseinterpreter, Image - 04/28/[address] [place] [address] [address] Scan Report Signed Patient: Aurora Ferrara MMR#: [id number] : 1980Acct:[id number] Age/Sex: 44 / FADM Date: 04/28/25 Loc: .ED Attending Dr: Ordering Physician: Luisa Joyner Date of Service: 04/28/25 Procedure(s): CT abdomen pelvis w IV con Accession Number(s): [id number] cc: Luisa Joyner; STAN MARKS [facility] Report Number: [id number]: Total DLP = 475.00 mGy-cm Reason for [...] 04/28/25 1702 DD/ 1635 TD/TT: 04/28/25 1647 Die Reamer: [facility] External Provider IMG CT PROCEDURES Final Result * Lactic Acid (04/28/2025 12:47 PM EST) Lactic Acid 1.3 0.5 - 2.0 mmol/L [facility] 04/28/2025 12:4 7 PM EST 04/28/2025 12:51 PM EST Generic External Data Provider LAB BLOOD ORDERAB LES Final Result Performing Organization Address [facility]/ZIP Co de Phone Number [facility] [address] [place] [phone] * Blood Culture (First) (04/28/2025 12:36 PM EST) Blood Venous blood specimen / Unknown 04/28/2025 12:36 PM EST 04/28/2025 12:40 PM EST Comment:Blood Narrative [facility] - 05/03/2025 2:41 PM EST Blood Culture (First) No growth after 5 days. Specimen Source: Blood Generic External Data Provider LAB MICROBIOLOGY - GENERAL ORDERABLES Final Result Performing Organization Address [facility] Co de Phone Number [facility] [address] [place] [phone] * Blood Culture (Second) (04/28/2025 12:36 PM EST) Blood Venous blood specimen / Unknown 04/28/2025 12:36 PM EST 04/28/2025 12:40 PM EST Comment:Blood Narrative [facility] - 05/03/2025 2:41 PM EST Blood Culture (Second) No growth after 5 days. Specimen Source: Blood us Generic External Data Provider LAB MICROBIOLOGY - GENERAL ORDERABLES Final Result [facility] [address] [place] [phone] * CBC auto differential (04/28/2025 12:36 PM EST) Only the most recent of2 resultswithin the time period is included. White Blood Count 4.9 4.8 - 10.8 X10*3/uL [facility] Red Blood Count 4.34 4.20 - 5.50 X10*6/uL [facility] Hemoglobin 13.5 12.0 - 16.0 g/dl [facility] Hematocrit 39.7 37.0 - 47.0 % [facility] Mean Corpuscular Volume 91.5 80.0 - 98.0 fL [facility] Mean Corpuscular Hemoglobin 31.1 27.0 - 33.0 pg [facility] Mean Corpuscular HGB Conc 34.0 31.0 - 35.0 g/dl [facility] Red Cell Distribution Width 11.3 11.0 - 16.0 % [facility] Platelet Count 280 160 - 400 X10*3/uL [facility] Mean Platelet Volume 9.5 9.4 - 12.3 fL [facility] Neutrophils Percent Auto 64.6 45 - 73 % [facility] Imm Gran Pct Auto 0.2 0.0 - 0.4 % [facility] Lymphocytes Percent Auto 25.9 20 - 40 % [facility] Monocytes Percent Auto 7.9 2 - 11 % [facility] Eosinophils Percent Auto 1.0 0 - 4 % [facility] Basophils Percent Auto 0.4 0 - 2 % [facility] NRBC Pct Auto 0.0 0.0 - 0.2 /100WBC [facility] Neutrophils Absolute Auto 3.2 2.0 - 8.3 x10*3/uL [facility] Imm Gran Abs Auto 0.01 0.00 - 0.03 X10*3/uL [facility] Lymphocytes Absolute Auto 1.3 1.2 - 4.9 X10*3/uL [facility] Monocytes Absolute Auto 0.4 0.1 - 1.2 X10*3/uL [facility] Eosinophils Absolute Auto 0.1 0.0 - 0.4 X10*3/uL [facility] Basophils Absolute Auto 0.0 0.0 - 0.2 X10*3/uL [facility] NRBC Abs Auto 0.000 0.0 - 0.012 X10*3/uL [facility] 04/28/2025 12:3 6 PM EST 04/28/2025 12:40 PM EST us Generic External Data Provider LAB BLOOD ORDERAB LES Final Result Performing Organization Address City/State/[facility] Co de Phone Number [facility] [address] [place] [phone] * hCG, Total, Quantitative (04/28/2025 12:36 PM EST) HCG Quantitative 4 mIU/mL [facility] Comment:Weeks post LMP Appro ximate hCG(Last Menstrual Period) Range (mIU/ml)3 - 4 weeks 9 - 1304 - 5 weeks 75 - 2,6005 - 6 weeks 850 - 20,8006 - 7 weeks 4000 - 100,2007 - 12 weeks 11,500 - 289,97623 - 16 weeks 18,300 - 137,66589 - 29 weeks (2nd trimester) 1,400 - 53,75449 - 41 weeks (3rd trimester) 940 - [...] ORDERAB LES Final Result Performing Organization Address [facility] Phone Number [facility] [address] [place] [phone] * Magnesium (04/28/2025 12:36 PM EST) Pathologist [facility] Magnesium 2.2 1.6 - 2.6 mg/dL [facility] 04/28/2025 12:3 6 PM EST 04/28/2025 12:40 PM EST Generic External Data Provider LAB BLOOD ORDERAB LES Final Result Performing Organization Address [facility] Phone Number [facility] [address] [place] [phone] * Lipase (04/28/2025 12:36 PM EST) Pathologist [facility] Lipase 28 8 - 78 U/L [facility] 04/28/2025 12:3 6 PM EST 04/28/2025 12:40 PM EST Generic External Data Provider LAB BLOOD ORDERAB LES Final Result Performing Organization Address [facility] Phone Number [facility] [address] [place] [phone] * (ABNORMAL) Hepatic Function Panel (04/28/2025 12:36 PM EST) Bilirubin, Total 0.7 0.0 - 1.0 mg/dL [facility] Bilirubin, Direct 0.2 0.0 - 0.5 mg/dL [facility] Aspartate Amino Transferase 29 5 - 31 U/L [facility] Alanine Aminotransferase 48(H) 0 - 31 U/L [facility] Total Protein 7.7 6.5 - 8.0 g/dL [facility] Albumin Level 4.8 3.5 - 5.0 g/dL [facility] Alkaline Phosphatase 84 39 - 117 U/L [facility] 04/28/2025 12:3 6 PM EST 04/28/2025 12:40 PM EST us Generic External Data Provider LAB BLOOD ORDERAB LES Final Result [facility] [address] [place] [phone] * (ABNORMAL) Basic Metabolic Panel (04/28/2025 12:36 PM EST) Sodium 139 135 - 145 mmol/L [facility] Potassium 3.8 3.3 - 5.1 mmol/L [facility] Chloride 104 96 - 108 mmol/L [facility] Carbon Dioxide 28 22 - 29 mmol/L [facility] Anion Gap 11(L) 12 - 20 [facility] Urea Nitrogen (BUN) 16 9 - 16 mg/dL [facility] Creatinine, Serum 0.53 0.5 - 1.4 mg/dL [facility] Creatinine Clr Calc Pharmacy 121.8 [facility] Comment:Provided height and weight: 165.1 cm,67.132 kg.eGFR (calculated from the MDRD study equation) and eCrCl(calculated from the Cockcroft-Gault equation) are based ondifferent parameters and may not yield comparable results.If eCrCl result is absurd, please check patient'sheight/weight. Estimated Glomerular Filt Rate >60 [facility] Comment:Chronic Kidney Disea se: Estimated GFR < 60 mL/min/1.07w1Puedfl Kidney Disease: Estimated GFR < 15 mL/min/1.73m2 Glucose 83 60 - 115 mg/dL [facility] Calcium 9.7 8.4 - 10.2 mg/dL [facility] 04/28/2025 12:3 6 PM EST 04/28/2025 12:40 PM EST Generic External Data Provider LAB BLOOD ORDERAB LES Final Result Performing Organization Address [facility] Co de Phone Number [facility] [address] [place] [phone] * Amylase, Peritoneal Fluid (04/28/2025 10:28 AM EST) Amylase, Peritoneal Fluid 38 [facility] Comment:Units: U/LThe refere nce range and other method performancespecifications have not been established for this bodyfluid. The test result must be integrated into the clinicalcontext for interpretation.Testing performed at: [facility] [address] [place] [address] 04/28/2025 10:2 8 AM EST 04/28/2025 12:13 PM EST Generic External Data Provider LAB BODY FLUIDS A ND STOOLS ORDERABLES Final Result Performing Organization Address [facility] de Phone Number [facility] [address] [place] [phone] * Glucose Peritoneal Fluid (04/28/2025 10:28 AM EST) Glucose, Peritoneal Fluid <2 [facility] Comment:Units: MG/DLThe refe rence range and other method performancespecifications have not been established for this bodyfluid. The test result must be integrated into the clinicalcontext for interpretation.Testing performed at: [facility] [address] [place] [address] 04/28/2025 10:2 8 AM EST 04/28/2025 12:13 PM EST Generic External Data Provider LAB BODY FLUIDS A ND STOOLS ORDERABLES Final Result Performing Organization Address [facility] Co de Phone Number [facility] [address] [place] [phone] * Gram Stain Result (04/28/2025 10:28 AM EST) 04/28/2025 10:2 8 AM EST 04/28/2025 12:13 PM EST Comment:Abdom Fld Narrative [facility] - 05/04/2025 10:35 AM EST FLUID FROM DRAIN COLLECTED DURING PANNICULECTOMY Gram stain results: No polys 4+ Gram-negative rods 1+ Gram-positive cocci FLUID FROM DRAIN COLLECTED DURING PANNICULECTOMY Anaerobic Culture Report Anaerobic Culture No anaerobes isolated. FLUID FROM DRAIN COLLECTED DURING PANNICULECTOMY Pseudomonas [...] Provider HISTORICAL/NON OR DERABLE LABS Final Result [facility] [address] [place] [phone] * Albumin Peritoneal Fluid (04/28/2025 10:28 AM EST) Albumin Peritoneal Fluid 1.0 [facility] Comment:Units: GM/DLThe refe rence range and other method performancespecifications have not been established for this bodyfluid. The test result must be integrated into the clinicalcontext for interpretation.Testing performed at: [facility] [address] [place] [address] 04/28/2025 10:2 8 AM EST 04/28/2025 12:13 PM EST Generic External Data Provider LAB BODY FLUIDS A ND STOOLS ORDERABLES Final Result Performing Organization Address [facility] Co de Phone Number [facility] [address] [place] [phone] * Other Reference Test - Misc (04/28/2025 10:28 AM EST) Other Ref Test Misc SEE NOTE [facility] Comment:See scanned report i n EMR 04/28/2025 10:2 8 AM EST 04/28/2025 12:13 PM EST Narrative [facility] - 04/29/2025 7:27 AM EST bilirubin level for intraabdominal fluid Generic External Data Provider LAB BLOOD ORDERAB LES Final Result Performing Organization Address [facility] Co de Phone Number [facility] [address] [place] [phone] * Creatinine, body fluid (04/28/2025 10:28 AM EST) Creatinine Peritoneal Fluid 1.3 [facility] Comment:Units: MG/DLThe refe rence range and other method performancespecifications have not been established for this bodyfluid. The test result must be integrated into the clinicalcontext for interpretation.Testing performed at: [facility] [address] [place] [address] 04/28/2025 10:2 8 AM EST 04/28/2025 12:13 PM EST us Generic External Data Provider LAB BODY FLUIDS A ND STOOLS ORDERABLES Final Result [facility] [address] [place] [address] [phone] * Gross and Microscopic Level 2 (04/06/2025 11:22 AM EDT) 04/06/2025 11:2 2 AM EDT 04/06/2025 1:50 PM EDT Narrative [facility] - 04/09/2025 10:21 AM EDT ----- ------- Name: Aurora Ferrara Age/Sex: 44/F : 1980 Unit#: [id number] Attend Dr: Kashmir Freeman MD Re04/06/[address] [facility] Disch: ----- ------- SPEC : [id number] RECD: 04/06/25 STATUS: NELI JOHN NUM: [id number] ROYCE: 04/06/[address]: Kashmir Freeman MD ENTERED: 04/06/25 SP TYPE: Surgical OTHR DR: STAN MARKS [facility] ORDERED: Gross Micro L2, Gross Micro [...] fibrofatty subcutaneous soft tissue without discrete abnormality. Coordinator Skill Training Program sections are submitted in cassettes A1 -3. B. Received in formalin is a 1.6 cm in greatest dimension portion of fibrofatty soft tissue, sectioned and entirely submitted in cassette B1. (DTL) IHC S/NG Disclaimer NOTE: Unless otherwise stated, all tissue is formalin-fixed and paraffin-embedded. Some or all of the immunohistochemical tests reported herein may have been developed and their performance characteristics determined by [facility]. They have not been cleared [...] Aurora Ferrara Age/Sex: 44/F : 1980 Unit#: [id number] Attend Dr: Kashmir Freeman MD Re04/06/[address]: [facility] Location: [facility] Disch: ----- ------- SPEC : [id number] RECD: 04/06/25 STATUS: NELI JOHN NUM: [id number] ROYCE: 04/06/[address]: Kashmir Freeman MD ENTERED: 04/06/25 SP TYPE: Surgical OTHR DR: STAN MARKS CNM ORDERED: Gross Micro L2, Gross Micro L3 Copies To: Kashmir Freeman MD [facility] [address] [place] [phone] STAN MARSK CNM [address] [address] ----- ------- Signed (signature on file) Katharina Duron MD 04/09/25 1021 ----- ------- END OF REPORT Generic External Data Provider LAB CYTOLOGY HOLLY CHILD Final Result [facility] [address] [place] [phone] * Partial Thromboplastin Time, Activated (APTT) (04/02/2025 1:27 PM EDT) Partial Thromboplastin Time 33.6 26.7 - 34.1 SEC [facility] 04/02/2025 1:27 PM EDT 04/02/2025 1:47 PM EDT Generic External Data Provider LAB BLOOD ORDERAB LES Final Result Performing Organization Address City/[facility]/ZIP Co de Phone Number [facility] [address] [place] [phone] * (ABNORMAL) Prothrombin Time-INR (04/02/2025 1:27 PM EDT) [facility] Prothrombin Time 14.0(H) 10.9 - 12.4 SEC [facility] INTERNATIONAL NORM RATIO 1.2(H) 0.9 - 1.1 [facility] Comment:INTERNATIONAL NORMAL IZED RATIO (INR) [...] LES Final Result Performing Organization Address City/[facility]/ZIP Co de Phone Number [facility] [address] [place] [phone] * Type and screen (04/02/2025 1:27 PM EDT) Blood Type ON [facility] Antibody Screen NEGATIVE [facility] 04/02/2025 1:27 PM EDT 04/02/2025 1:40 PM EDT Narrative [facility] - 04/02/2025 2:20 PM EDT WITNESSED BY [place].Spec expiration changed by JIMMY on 04/02/25Reason: ANANTH SSSNURSING:Call Blood Bank (ext. [phone]) to band patient on admission.Type and Screen in effect until 2300 on 04/06/25. us Generic External Data Provider LAB BLOOD BANK TE ST ORDERABLES Final Result [facility] [address] [place] [phone] * (ABNORMAL) Comprehensive Metabolic Panel (04/02/2025 1:27 PM EDT) Sodium 141 135 - 145 mmol/L [facility] Potassium 3.5 3.3 - 5.1 mmol/L [facility] Chloride 106 96 - 108 mmol/L [facility] Carbon Dioxide 27 22 - 29 mmol/L [facility] Anion Gap 12 12 - 20 [facility] Urea Nitrogen (BUN) 17(H) 9 - 16 mg/dL [facility] Creatinine, Serum 0.51 0.5 - 1.4 mg/dL [facility] Creatinine Clr Calc Pharmacy 135.2 [facility] Comment:Provided height and weight: 163.83 cm,70.125 kg.eGFR (calculated from the MDRD study equation) and eCrCl(calculated from the Cockcroft-Gault equation) are based ondifferent parameters and may not yield comparable results.If eCrCl result is absurd, please check patient'sheight/weight. Estimated Glomerular Filt Rate >60 [facility] Comment:Chronic Kidney Disea se: Estimated GFR < 60 mL/min/1.01i2Dxeqzg Kidney Disease: Estimated GFR < 15 mL/min/1.73m2 Glucose 78 60 - 115 mg/dL [facility] Calcium 9.2 8.4 - 10.2 mg/dL [facility] Bilirubin, Total 0.7 0.0 - 1.0 mg/dL [facility] Aspartate Amino Transferase 25 5 - 31 U/L [facility] Alanine Aminotransferase 24 0 - 31 U/L [facility] Total Protein 6.9 6.5 - 8.0 g/dL [facility] Albumin Level 4.5 3.5 - 5.0 g/dL [facility] Alkaline Phosphatase 72 39 - 117 U/L [facility] 04/02/2025 1:27 PM EDT 04/02/2025 2:14 PM EDT us Generic External Data Provider LAB BLOOD ORDERAB LES Final Result [facility] [address] [place] [phone] * BI US Breast Limited Right (01/22/2025 11:06 AM EDT) Anatomical Region Laterality Modality Breast Right Ultrasound 01/22/2025 11:0 6 AM EDT Narrative 01/22/2025 11:38 AM EDT [facility] [address] [place] [address] Ultrasound Report Signed Patient: Aurora Ferrara MR#: [id number] : 1980 Acct:[id number] Age/Sex: 44 / F ADM Date: 01/22/25 Loc: HO.MAMMO Attending Dr: Stan Marks CNM Ordering Physician: STAN MARKS CNM Date of Service: 01/22/25 Procedure(s): US breast RT limited Accession Number(s): [id number] cc: STAN MARKS CNM EXAMINATIONS: 1. MM [...] 01/22/25 1135 DD/ 1106 TD/TT: 01/22/25 1120 Die Reamer: Procedure Note Donotuseinterpreter, Image - 01/22/20[facility] [address] [place] [address] Ultrasound Report Signed Patient: Aurora Ferrara [facility]#: [id number] : 1980Acct:[id number] Age/Sex: 44 / FADM Date: 01/22/25 Loc: HO.MAMMO Attending Dr: Stan Marks CNM Ordering Physician: STAN MARKS CNM Date of Service: 01/22/25 Procedure(s): US breast RT limited Accession Number(s): [id number] cc: STAN MARKS CNM EXAMINATIONS: 1. MM [...] 01/22/25 1135 DD/ 1106 TD/TT: 01/22/25 1120 Die Reamer: Stan Marks CNM IMG US PROCEDURES Final R esult * HPV DNA, Low/High Risk (01/05/2025 2:20 PM EDT) HPV High Risk Negative Negative [facility] HPV Genotype 16 Negative Negative [facility] HPV Genotype 18 Negative Negative [facility] Comment:HPV testing performe d at [facility] (CLIA#[id number]), [address] [place] [address].Testing for HPV was performed using the Aicha [...] CNM LAB BLOOD ORDERABLES Delphine l Result [facility] [address] [place] [phone] * Pap Smear (01/05/2025 2:20 PM EDT) Swab Cervix uteri structure / Unknown 01/05/2025 2:20 PM EDT 01/06/2025 7:35 AM EDT Narrative [facility] - 01/19/2025 8:59 AM EDT ----- ------- Name: Aurora Ferrara Age/Sex: 44/F : 1980 Unit#: [id number] Attend Dr: STAN MARKS CNM Re01/05/25 Status: DEP REF Location: [facility] Disch: ----- ------- SPEC : [id number] RECD: 01/06/25 STATUS: NELI RERed NUM: [id number] ROYCE: 01/05/25-[address] [facility] [address]: STAN MARKS CNM ENTERED: [...] at [facility] (CLIA #[id number]), [address] [place] [address]. Testing for HPV was performed using the [...] detected. All professional services are performed by [facility] ([address] [place] [address]; ; CLIA #[id number]). The PAP Test is a screening procedure with the inherent possibility of both false negative and false positive results. Results should be interpreted in the context of historic and current clinical findings. Reliability of the PAP Test is enhanced by performing the test on a regular repetitive basis. CONTINUED ON NEXT PAGE ----- ------- Name: Aurora Ferrara Age/Sex: 44/F : 1980 Unit#: [id number] Attend Dr: STAN MARKS CNM Re01/05/25 Status: [facility] REF Location: [facility] Disch: ----- ------- SPEC : [id number] RECD: 01/06/25 STATUS: NELI JOHN NUM: [id number] ROYCE: 01/05/25-[address] [facility] [address]: STAN MARKS CNM ENTERED: 01/06/25 SP TYPE: Pap Smr [address]: ORDERED: Pap Smear ----- ------- Signed (signature on file) KYRA Edwards (ASCP) 01/19/25 0859 ----- ------- END OF REPORT us Stan Marks [facility] CYTOLOGY ORDERABLES F inal Result [facility] [address] [place] [address] [phone] * Lipid Panel, Standard (11/13/2024 9:53 AM EDT) Triglycerides 46 <150 mg/dL [facility] Comment:Desirable Triglyceri de: less than 150 mg/dLBorderline High Triglyceride 150-199 mg/dLHigh Triglyceride: 200-499 mg/dLVery High Triglyceride: greater than or equal to 5OO mg/dL Cholesterol 172 <200 mg/dL [facility] Comment:Desirable Cholestero l: less than 200 mg/dLBorderline High Cholesterol: 200-239 mg/dLHigh Cholesterol: greater than 239 mg/dL LDL Cholesterol Calculated 94 <100 mg/dL [facility] Comment:Desirable LDL: less than 100 mg/dLNear Optimal/Above Optimal LDL: 110- 129 mg/dLBorderline High LDL: 130-159 mg/dLHigh LDL: 160-189 mg/dLVery High LDL: greater than or equal to 190 mg/dL HDL Cholesterol 69 >40 mg/dL [facility] Comment:Desirable HDL: great er than 40 mg/dL Note: This HDL assay may give artificially low results in patients with liver disease. 11/13/2024 9:53 AM EDT 11/13/2024 9:53 AM EDT us Generic External Data Provider LAB BLOOD ORDERAB LES Final Result Performing Organization Address [facility] Co de Phone Number [facility] [address] [place] [address] [phone] * Hepatitis C Antibody with Reflex to HCV, RNA, Quantitative, Real-Time PCR (04/09/2024 12:15 PM EDT) Hepatitis C Antibody Nonreactive Nonreactive [facility] Comment:Antibodies to HCV no t detected; does not exclude early acuteHCV infection. Blood Venous blood specimen / Unknown 04/09/2024 12:15 PM EDT 04/09/2024 1:17 PM EDT us Magaly Maldonado MD LAB BLOOD ORDERABLES Final Result Performing Organization Address [facility] Co de Phone Number [facility] [address] [place] [address] [phone] * HIV-1/2 Antigen and Antibodies, Fourth Generation, with Reflexes (04/09/2024 12:15 PM EDT) HIV AB/AG Nonreactive Nonreactive [facility] Comment:HIV-1 p24 Ag and/or HIV-1/HIV-2 Ab not detected.A test result that is nonreactive does not exclude thepossibility of exposure to or infection with HIV-1 and/orHIV-2. Nonreactive results in this assay for individualswith prior exposure to HIV-1 and/or HIV-2 may be due toantigen and antibody levels that are below the limit ofdetection of this assay.The Cartour HIV Ag/Ab Combo assay result andsupplemental assay results should be interpreted inconjunction with the patient's clinical presentation,history and other laboratory results. If the results areinconsistent with clinical evidence, additional testing issuggested to confirm the result. Blood Venous blood specimen / Unknown 04/09/2024 12:15 PM EDT 04/09/2024 1:17 PM EDT us Magaly Maldonado MD LAB BLOOD ORDERABLES Final Result [facility] [address] [place] [address] [phone] from Last 3 Months or Most Recently Relevant to Health Maintenance Insurance [facility] C3 Care Teams Supervisor Kosher Dietary Service Relationship Specialty Start Date End Date Magaly Mcrae MD [address] [place] [phone] PCP - General Family Medicine 02/19/18 Anne Marie Reza Coin Machine AssemblerCompass Operator 04/14/25
--- OUTSIDE RECORDS SUMMARY | 2025-05-05 14:58 | XMS_ITS | Encounter Summary ---
Author Organization [employer] Address [address] [facility] 7 [place] [address] Care Team Providers Care Cold Food Packer Name Role Phone Magaly Mcrae MD Primary Care Provide r Reason for Visit * Reason Onset Date Comments Referral 04/02/2025 Encounter Details Date Type Department Care Team ([facility] st Contact Info) Description 04/02/2025 Telephone [facility] [address] [place], [place] [phone] Magaly Mcrae MD [address] [place], [place] [phone] Referral Social History Tobacco Use Types Packs/Day [...] EDT Please place [facility] original referral for eczema [...] is scheduled for 01/01/2026. Contact pt at [phone] documented in this encounter Plan of Treatment Upcoming Encounters Date Type Department Care Team (Late st Contact Info) Description 06/23/2025 3:30 PM EST Office Visit [facility] [address] [place] [address] Magaly Mcrae MD [address] [place], [place] [phone] documented as of this encounter Visit Diagnoses Not on filedocumented in this encounter Additional Health Concerns Assessment Noted Time PHQ-9 Depression Total Score: 15 025 11:32 AM EDT documented as of this encounter Care Teams Cold Food Packer Relationship Specialty Start Date End Date Magaly Mcrae MD [address] [place] [phone] PCP - General Family Medicine 02/19/18 Anne Marie Reza Network Pricing ConsultantPipe Welder 04/14/25 documented as of this encounter
--- OUTSIDE RECORDS SUMMARY | 2025-05-05 14:58 | XMS_ITS | Encounter Summary ---
Author Organization [employer] Address [address] [facility] [address] [place] [address] Care Team Providers Care Geophysical Operator Name Role Phone Magaly Mcrae MD Primary Care Provide r Encounter Details Date Type Department Care Team ([facility] st Contact Info) Description 04/29/2025 Results Follow-Up [facility] [address] [place], [place] [phone] Diya York CN [address] [place] [address] CT Abdomen Pelvis w/ Contrast, CBC auto [...] Description 06/23/2025 3:30 PM EST Office Visit [facility] [address] [place] [address] Magaly Mcrae MD [address] [place] [address] documented as of this encounter Visit Diagnoses Not on filedocumented in this encounter Additional Health Concerns Assessment Noted Time PHQ-9 Depression Total Score: 12 025 3:36 PM EST documented as of this encounter Care Teams Geophysical Operator Relationship Specialty Start Date End Date Magaly Mcrae MD [address] [place] [address] PCP - General Family Medicine 02/19/18 Anne Marie Reza ParalegalsSecurity Specialist 04/14/25 documented as of this encounter
--- OUTSIDE RECORDS SUMMARY | 2025-05-05 14:58 | XMS_ITS | Encounter Summary ---
Author Organization [employer] Address [address] [facility] [address] [place] [address] Care Team Providers Care Thread Roller Name Role Phone Magaly Mcrae MD Primary Care Provide r Encounter Details Date Type Department Care Team (Latest Contact Info) Description 04/05/2025 Results Follow-Up [facility] [address] [place], [place] [phone] Diya York CNM [address] [place] [phone] Prothrombin Time-INR, Partial Thromboplastin Time, Activated (APTT), [...] Description 06/23/2025 3:30 PM EST Office Visit [facility] [address] [place] [phone] Magaly Mcrae MD [address] [place] [address] documented as of this encounter Visit Diagnoses Not on filedocumented in this encounter Additional Health Concerns Assessment Noted Time PHQ-9 Depression Total Score: 15 025 11:32 AM EDT documented as of this encounter Care Teams Thread Roller Relationship Specialty Start Date End Date Magaly Mcrae MD [address] [place] [phone] PCP - General Family Medicine 02/19/18 Anne Marie Reza Gun Stock CheckerSenior Project Accountant 04/14/25 documented as of this encounter
== END 2025-05-05 13:22 | disposition home or self-care (01) ==
LOC: HO.HBS 11:48
PROVIDERS: PCP Advanced Practice Midwife; Visit Provider Nurse Practitioner
DX: Z98.890 Other specified postprocedural states (principal)
CPT/HCPCS: 99214

== ENCOUNTER 2025-05-10 11:40 | Outpatient (REF) | payer MEDICAID, SELFPAY | END 2025-05-10 11:41 | disposition home or self-care (01) | LOC: HO.LNP 11:40 | PROVIDERS: PCP Advanced Practice Midwife; Visit Provider Nurse Practitioner | DX: Z98.890 Other specified postprocedural states (principal) | CPT/HCPCS: 87070; 87077; 87186; 87205; 99212 ==

== ENCOUNTER 2025-05-10 11:40 | Outpatient (AMB) | payer MEDICAID, SELFPAY ==
[2025-05-10 12:02] VITALS: BP 107/55; PULSE 72; TEMP 36.9; O2SAT 98
--- NOTE | 2025-05-10 12:02 | A.OFFVIS_ITS ---
VS Expanded 05/10/25 12:02 BP 107/55 L Blood Pressure Location Rt brachial Blood Pressure Position Sitting Pulse 72 Pulse Source Pulse Oximeter Temp 98.4 F Temperature Source Temporal Artery Scan Pulse Oximetry 98 Oxygen Delivery Method Room Air Intake Visit Reasons: OV Panniculectomy 04/06/25 Allergies No Known Allergies Allergy (Verified 05/10/25 12:03) HPI Comments Details: 44 year old woman s/p panniculectomy 04/06/2025. On 04/28/2025, patient presented to office with reports of +odor x4 days and green drain output x1 day. She denied fevers at home but feels senior field engineer abdomen. Thought pain had increased in abdomen. Fluid from her drain was sent to the lab, and she was referred to the ER for CT abdomen and blood work. Lab and imaging results below. ABX was changed from Keflex BID to Doxycycline BID and Levofloxacin QD. On 04/30/2025, she presented to office for recheck of surgical site and flushing of the drain. She was flushed with a total of 20cc 50% saline/50% hydrogen peroxide. On 05/03/2025, she presented for recheck and repeat flushing. She reported drain output was 10cc each day over the weekend. She denied any odor or green colored output since flushing. Increased abd pain/discomfort in this area, to the point that she was given prn Oxycodone, which was helpful. Denied constitutional symptoms or feeling ill/feverish. On 05/05/2025, she presented for recheck and repeat flushing. She reported drain output 20cc the other day, and 10cc that morning. No green, no odor. Denied constitutional symptoms. Still taking ABX as prescribed. No pain. Today, her drain outputs have been 1-5mL per day on her output record. No green, no odor. Denied constitutional symptoms. Still taking ABX as prescribed. No pain. [facility] Medical History Postgastrectomy malabsorption GERD (gastroesophageal reflux disease) Depression Hx of bipolar disorder Panic attack Surgical History History of sleeve gastrectomy History of endometrial ablation H/O parathyroidectomy History of esophagogastroduodenoscopy (EGD) History of tonsillectomy and adenoidectomy Hx of tubal ligation Family History Mother Heart disease Arthritis Father Liver disease Herniated disc Brother No problems noted. Brother No problems noted. Brother No problems noted. Sister Diabetes Sister Migraine Sister HIV disease Sister No problems noted. Sister No problems noted. Daughter Asthma Son No problems noted. Paternal Aunt Breast cancer Social History Household Members: Family Housing: Apartment Are you a primary healthcare science specialist to a significant other at home: No Do you presently have visiting nurse or other home services: No 75 years or older and lives alone: No Alcohol intake: never Patient Tobacco Use Status: Former Tobacco user Tobacco use type: Cigarette Substance Use Type: Marijuana service: No Current occupational status: unemployed Female Reproductive History Menstrual Age of Menarche: 13 Physical Exam Vital Signs: Last Vital Signs Temp 98.4 F 05/10/25 12:02 Pulse 72 05/10/25 12:02 BP 107/55 L 05/10/25 12:02 Pulse Ox 98 05/10/25 12:02 Oxygen Delivery Method Room Air 05/10/25 12:02 Const General: cooperative, healthy appearing, comfortable and no acute distress Orientation/consciousness: patient oriented x3 GI Other: abd soft non tender non distended. panniculectomy incision and umbilicus are healing well without erythema or open areas. Small area of raw-irritated skin on panniculectomy scar, but not open or draining. Drainage in bulb is dark yellow serous, no sediment, does not appear to be purulent. No green noted. No odor. New DSD applied. Neuro General: patient oriented x3 Results Reviewed Results Reviewed: CT abdomen/pelvis 04/28/2025 reports: IMPRESSION: 1. No acute findings in the abdomen or pelvis. 2. Subcutaneous stranding in the anterior subcutaneous abdominal fat related to recent panniculectomy. A surgical drain is in place in the inferior anterior abdominal wall. Just superior and right lateral of the umbilicus, just anterior to the rectus sheath, there is a 6 mm nonenhancing fluid collection which may represent a seroma. This does not appear definitively drainable. Fluid collected from SHARYN drain 04/28/2025: Creatinine 1.3 Albumin 1 Glucose < 2 Amylase 38 Bilirubin 2.7 Blood draw 04/28/2025: WBC 4.9 Cultures as of 05/03/2025: Organism 1 Pseudomonas aeruginosa Quantity 4+ Organism 2 Enterobacter cloacae complex Quantity 4+ Organism 3 Methicillin Res Staph Aureus Quantity 4+ Susceptible to tetracycline and ciprofloxacin Other results per chart Assessment & Plan Assessment & Plan (1) S/P panniculectomy: Code(s): Z98.890 - Other specified postprocedural states Category: Surgical Plan: - SHARYN was emptied for about 5mL and sent on swab for culture and gram stain - No flushing today, per Dr. Tan - She will continue her ABX as prescribed, doxycycline BID and levofloxacin QD. Per culture results, the bacteria is susceptible to tetracycline and ciprofloxacin. - Empty the drain as she has been, once in the morning, and record the outputs. - Continue meal plan - Call office for any concerns/questions, S&S worsening infection - We will await culture results before removing SHARYN drain. Discussed with Dr. Tan Follow up: as scheduled on 05/12/2025 Orders: Orders Routine Culture w Gram Stain Today Z98.890 - Other specified postprocedural states
--- OUTSIDE RECORDS SUMMARY | 2025-05-10 15:22 | XMS_ITS | Encounter Summary ---
Author Organization [employer] [facility] Address [address] [place] [address] Care Team Providers Care Agricultural Extension Agent Name Role Phone Magaly Mcrae MD Primary Care Provide r Encounter Details Date Type Department Care Team (Late st Contact Info) Description 05/10/2025 Orders Only GENERIC EXTERNAL DATA DEPARTMENT Provider, [...] 06/23/2025 3:30 PM EST Office Visit [facility] [address] [place] [address] Magaly Mcrae MD [address] [place] [address] documented as of this encounter Procedures Procedure Name Priority Date/Time Associated Diagnosis Comments GRAM STAIN RESULT (NON ORDERABLE) Routine 05/10/2025 11:40 AM EST documented in this encounter Results * Gram Stain Result (05/10/2025 11:40 AM EST) 05/10/2025 11:4 0 AM EST 05/10/2025 12:45 PM EST Comment:Abdom Fld Narrative [facility] - 05/10/2025 1:56 PM EST Abdominal swab Gram stain results: No polys 4+ Gram-negative rods Specimen Source: Abdominal Fluid us Generic External Data Provider HISTORICAL/NON OR DERABLE LABS Final Result [facility] [address] [place] [address] [phone] documented in this encounter Visit Diagnoses Not on filedocumented in this encounter Additional Health Concerns Assessment Noted Time PHQ-9 Depression Total Score: 12 025 3:36 PM EST documented as of this encounter Care Teams Agricultural Extension Agent Relationship Specialty Start Date End Date Magaly Mcrae MD [address] [place] [address] PCP - General Family Medicine 02/19/18 Anne Marie Reza Four H Club AgentScience And Operations Officer 04/14/25 documented as of this encounter
--- OUTSIDE RECORDS SUMMARY | 2025-05-10 15:22 | XMS_ITS | Encounter Summary ---
Author Organization [employer] Address [address] [facility] [address] [place] [address] Care Team Providers Care Retail Sales Advisor Name Role Phone Magaly Mcrae MD Primary Care Provide r Encounter Details Date Type Department Care Team ([facility] st Contact Info) Description 02/13/2024 Telephone [facility] [address] [place], [place] [phone] Magaly Mcrae MD [address] [place], [place] [phone] Social History Tobacco Use Types Packs/Day Years [...] Description 06/23/2025 3:30 PM EST Office Visit [facility] [address] [place] [phone] Magaly Mcrae MD [address] [place] [phone] documented as of this encounter Visit Diagnoses Not on filedocumented in this encounter Additional Health Concerns Assessment Noted Time PHQ-9 Depression Total Score: 11 023 3:07 PM EDT documented as of this encounter Care Teams Retail Sales Advisor Relationship Specialty Start Date End Date Magaly Mcrae MD [address] [place] [phone] PCP - General Family Medicine 02/19/18 Anne Marie Reza Bridges SupervisorForklift Wheel Loader 04/14/25 documented as of this encounter
--- OUTSIDE RECORDS SUMMARY | 2025-05-10 15:22 | XMS_ITS | Clinical Summary ---
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 Chronic pain of left knee 10/24/2022 Assessment [...] Encounters Date Type Department Care Team Description 05/10/2025 Orders Only GENERIC EXTERNAL DATA DEPARTMENT Provider, Generic External Data 04/29/2025 Results Follow-Up [facility] [address] [place] [address] Abdomen Pelvis w/ Contrast, CBC auto differential, Hepatic Function Panel, Additional followed-up results: 13 04/28/2025 Orders Only GENERIC EXTERNAL DATA DEPARTMENT Provider, Generic External Data 04/17/2025 Refill [facility] [address] [place] [address] Magaly Mcrae MD Seasonal allergic rhinitis, unspecified trigger 04/14/2025 Telephone [facility] [address] [place] [address] Magaly Mcrae MD Care Coordination (ICP Care Plan) 04/13/2025 3:15 PM EST Office Visit [address] [address] Magaly Mcrae MD Encounter for preventive care (Primary Dx); Dietary counseling; Exercise counseling; Post-surgical hypoparathyroidism; Irritant contact dermatitis, unspecified trigger 04/13/2025 Travel 04/12/[address] [address] Magaly Mcrae MD Chart Prep 04/06/2025 Orders Only GENERIC EXTERNAL DATA DEPARTMENT Provider, Generic External Data 04/06/2025 Patient Outreach [facility] [address] [place] [address] Magaly Mcrae MD Pre-visit Planning ([facility] unable to reach [facility]) 04/05/[address] [address] Magaly Mcrae MD tammy recall 04/05/2025 Results Follow-Up [address] [address] Stan Marks, CNMaty Prothrombin Time-INR, Partial Thromboplastin Time, Activated (APTT), CBC auto differential, Additional followed-up results: 2 04/02/2025 Orders Only [address] [address] Magaly Mcrae MD Eczema, unspecified type (Primary Dx) 04/02/[address] [phone] Magaly Mcrae MD Referral 02/15/2025 Patient Outreach [address] [phone] Magaly Mcrae MD Care Coordination (CM/CHW Efrain Torres, [facility] f/u, program graduation) from Last 3 Months [...] Description 06/23/2025 3:30 PM EST Office Visit [facility] [address] [place], [place] [phone] Magaly Mcrae MD [address] [place], [place] [phone] Health Maintenance Due Date Last Done Comments [...] (NON ORDERABLE) Routine 05/10/2025 11:[address] ABDOMEN PELVIS W CONTRAST Routine 04/28/2025 [...] Recently Relevant to Health Maintenance Results * Gram Stain Result (05/10/2025 11:40 AM EST) Only the most recent of2 resultswithin the time period is included. 05/10/2025 11:4 0 AM EST 05/10/2025 12:45 PM EST Comment:Abdom Fld Narrative [facility] - 05/10/2025 1:56 PM EST Abdominal swab Gram stain results: No polys 4+ Gram-negative rods Specimen Source: Abdominal Fluid us Generic External Data Provider HISTORICAL/NON OR DERABLE LABS Final Result [facility] [address] [place] [address] [phone] * CT Abdomen Pelvis w/ Contrast (04/28/2025 4:35 PM EST) Anatomical Region Laterality Modality Body, Pelvis, Abdomen Computed T omography 04/28/2025 4:35 PM EST Narrative 04/28/2025 5:04 PM EST [address] [address] [address] Scan Report Signed Patient: Aurora Ferrara MR#: [id number] : 1980 Acct:[id number] Age/Sex: 44 / F ADM Date: 04/28/25 Loc: HO.ED Attending Dr: Ordering Physician: Luisa Joyner Date of Service: 04/28/25 Procedure(s): CT abdomen pelvis w IV con Accession Number(s): [id number] cc: Luisa Joyner; STAN MARKS [facility] Report Number: [id number]: Total DLP = 475.00 mGy-cm Reason for [...] by: Todd Nguyễn MD 04/28/2025 05:02 PM [facility] Dictated By: Todd Nguyễn MD Signed By: <Electronically signed by Todd Nguyễn MD in OV> 04/28/25 1702 DD/ 1635 TD/TT: 04/28/25 1647 Orthopedic Surgeon: Procedure Note Donotuseinterpreter, Image - 04/28/[address] [address] [address] Scan Report Signed Patient: Aurora Ferrara [facility]#: [id number] : 1980Acct:[id number] Age/Sex: 44 / FADM Date: 04/28/25 Loc: HO.ED Attending Dr: Ordering Physician: Luisa Joyner Date of Service: 04/28/25 Procedure(s): CT abdomen pelvis w IV con Accession Number(s): [id number] cc: Luisa Joyner; BUFFYKJSTAN [facility] Report Number: [id number]: Total DLP = 475.00 mGy-cm Reason for [...] 04/28/25 1702 DD/ 1635 TD/TT: 04/28/25 1647 Orthopedic Surgeon: [facility] External Provider IMG CT PROCEDURES Final Result * Lactic Acid (04/28/2025 12:47 PM EST) Lactic Acid 1.3 0.5 - 2.0 mmol/L [facility] 04/28/2025 12:4 7 PM EST 04/28/2025 12:51 PM EST Generic External Data Provider LAB BLOOD ORDERAB LES Final Result Performing Organization Address [facility]/ZIP Co de Phone Number [facility] [address] [place] [phone] * Blood Culture (First) (04/28/2025 12:36 PM EST) Blood Venous blood specimen / Unknown 04/28/2025 12:36 PM EST 04/28/2025 12:40 PM EST Comment:Blood Narrative [facility] - 05/03/2025 2:41 PM EST Blood Culture (First) No growth after 5 days. Specimen Source: Blood Generic External Data Provider LAB MICROBIOLOGY - GENERAL ORDERABLES Final Result Performing Organization Address [facility] Co de Phone Number [facility] [address] [place] [phone] * Blood Culture (Second) (04/28/2025 12:36 PM EST) Blood Venous blood specimen / Unknown 04/28/2025 12:36 PM EST 04/28/2025 12:40 PM EST Comment:Blood Narrative [facility] - 05/03/2025 2:41 PM EST Blood Culture (Second) No growth after 5 days. Specimen Source: Blood Generic External Data Provider LAB MICROBIOLOGY - GENERAL ORDERABLES Final Result Performing Organization Address [facility] Co de Phone Number [facility] [address] [place] [phone] * CBC auto differential (04/28/2025 12:36 PM EST) Only the most recent of2 resultswithin the time period is included. White Blood Count 4.9 4.8 - 10.8 X10*3/uL [facility] Red Blood Count 4.34 4.20 - 5.50 X10*6/uL [facility] Hemoglobin 13.5 12.0 - 16.0 g/dl [facility] Hematocrit 39.7 37.0 - 47.0 % [facility] Mean Corpuscular Volume 91.5 80.0 - 98.0 fL [facility] Mean Corpuscular Hemoglobin 31.1 27.0 - 33.0 pg [facility] Mean Corpuscular HGB Conc 34.0 31.0 - 35.0 g/dl [facility] Red Cell Distribution Width 11.3 11.0 - 16.0 % [facility] Platelet Count 280 160 - 400 X10*3/uL [facility] Mean Platelet Volume 9.5 9.4 - 12.3 fL [facility] Neutrophils Percent Auto 64.6 45 - 73 % [facility] Imm Gran Pct Auto 0.2 0.0 - 0.4 % [facility] Lymphocytes Percent Auto 25.9 20 - 40 % [facility] Monocytes Percent Auto 7.9 2 - 11 % [facility] Eosinophils Percent Auto 1.0 0 - 4 % [facility] Basophils Percent Auto 0.4 0 - 2 % [facility] NRBC Pct Auto 0.0 0.0 - 0.2 /100WBC [facility] Neutrophils Absolute Auto 3.2 2.0 - 8.3 x10*3/uL [facility] Imm Gran Abs Auto 0.01 0.00 - 0.03 X10*3/uL [facility] Lymphocytes Absolute Auto 1.3 1.2 - 4.9 X10*3/uL [facility] Monocytes Absolute Auto 0.4 0.1 - 1.2 X10*3/uL [facility] Eosinophils Absolute Auto 0.1 0.0 - 0.4 X10*3/uL [facility] Basophils Absolute Auto 0.0 0.0 - 0.2 X10*3/uL [facility] NRBC Abs Auto 0.000 0.0 - 0.012 X10*3/uL [facility] 04/28/2025 12:3 6 PM EST 04/28/2025 12:40 PM EST us Generic External Data Provider LAB BLOOD ORDERAB LES Final Result [facility] [address] [place] [phone] * hCG, Total, Quantitative (04/28/2025 12:36 PM EST) HCG Quantitative 4 mIU/mL [facility] Comment:Weeks post LMP Appr oximate hCG(Last Menstrual Period) Range (mIU/ml)3 - 4 weeks 9 - 1304 - 5 weeks 75 - 2,6005 - 6 weeks 850 - 20,8006 - 7 weeks 4000 - 100,2007 - 12 weeks 11,500 - 289,95355 - 16 weeks 18,300 - 137,87964 - 29 weeks (2nd trimester) 1,400 - 53,74509 - 41 weeks (3rd trimester) 940 - [...] ORDERAB LES Final Result Performing Organization Address [facility] Co de Phone Number [facility] [address] [place] [phone] * Magnesium (04/28/2025 12:36 PM EST) Magnesium 2.2 1.6 - 2.6 mg/dL [facility] 04/28/2025 12:3 6 PM EST 04/28/2025 12:40 PM EST Generic External Data Provider LAB BLOOD ORDERAB LES Final Result Performing Organization Address [facility]/ZIP Co de Phone Number [facility] [address] [place] [phone] * Lipase (04/28/2025 12:36 PM EST) Lipase 28 8 - 78 U/L [facility] 04/28/2025 12:3 6 PM EST 04/28/2025 12:40 PM EST Generic External Data Provider LAB BLOOD ORDERAB LES Final Result Performing Organization Address [facility]/ZIP Co de Phone Number [facility] [address] [place] [phone] * (ABNORMAL) Hepatic Function Panel (04/28/2025 12:36 PM EST) [facility] Bilirubin, Total 0.7 0.0 - 1.0 mg/dL [facility] Bilirubin, Direct 0.2 0.0 - 0.5 mg/dL [facility] Aspartate Amino Transferase 29 5 - 31 U/L [facility] Alanine Aminotransferase 48(H) 0 - 31 U/L [facility] Total Protein 7.7 6.5 - 8.0 g/dL [facility] Albumin Level 4.8 3.5 - 5.0 g/dL [facility] Alkaline Phosphatase 84 39 - 117 U/L [facility] 04/28/2025 12:3 6 PM EST 04/28/2025 12:40 PM EST Generic External Data Provider LAB BLOOD ORDERAB LES Final Result Performing Organization Address City/[facility] Co de Phone Number [facility] [address] [place] [phone] * (ABNORMAL) Basic Metabolic Panel (04/28/2025 12:36 PM EST) [facility] Sodium 139 135 - 145 mmol/L [facility] Potassium 3.8 3.3 - 5.1 mmol/L [facility] Chloride 104 96 - 108 mmol/L [facility] Carbon Dioxide 28 22 - 29 mmol/L [facility] Anion Gap 11(L) 12 - 20 [facility] Urea Nitrogen (BUN) 16 9 - 16 mg/dL [facility] Creatinine, Serum 0.53 0.5 - 1.4 mg/dL [facility] Creatinine Clr Calc Pharmacy 121.8 [facility] Comment:Provided height and weight: 165.1 cm,67.132 kg.eGFR (calculated from the MDRD study equation) and eCrCl(calculated from the Cockcroft-Gault equation) are based ondifferent parameters and may not yield comparable results.If eCrCl result is absurd, please check patient'sheight/weight. Estimated Glomerular Filt Rate >60 [facility] Comment:Chronic Kidney Disea se: Estimated GFR < 60 mL/min/1.55f3Naertu Kidney Disease: Estimated GFR < 15 mL/min/1.73m2 Glucose 83 60 - 115 mg/dL [facility] Calcium 9.7 8.4 - 10.2 mg/dL [facility] 04/28/2025 12:3 6 PM EST 04/28/2025 12:40 PM EST us Generic External Data Provider LAB BLOOD ORDERAB LES Final Result Performing Organization Address [facility] de Phone Number [facility] [address] [place] [phone] * Amylase, Peritoneal Fluid (04/28/2025 10:28 AM EST) Amylase, Peritoneal Fluid 38 [facility] Comment:Units: U/LThe refere nce range and other method performancespecifications have not been established for this bodyfluid. The test result must be integrated into the clinicalcontext for interpretation.Testing performed at: [facility] [address] [place] [address] 04/28/2025 10:2 8 AM EST 04/28/2025 12:13 PM EST us Generic External Data Provider LAB BODY FLUIDS A ND STOOLS ORDERABLES Final Result Performing Organization Address [facility]/ZIP Co de Phone Number [facility] [address] [place] [phone] * Glucose Peritoneal Fluid (04/28/2025 10:28 AM EST) Glucose, Peritoneal Fluid <2 [facility] Comment:Units: MG/DLThe refe rence range and other method performancespecifications have not been established for this bodyfluid. The test result must be integrated into the clinicalcontext for interpretation.Testing performed at: [facility] [address] [place] [address] 04/28/2025 10:2 8 AM EST 04/28/2025 12:13 PM EST Generic External Data Provider LAB BODY FLUIDS A ND STOOLS ORDERABLES Final Result Performing Organization Address [facility] Co de Phone Number [facility] [address] [place] [phone] * Albumin Peritoneal Fluid (04/28/2025 10:28 AM EST) Albumin Peritoneal Fluid 1.0 [facility] Comment:Units: GM/DLThe refe rence range and other method performancespecifications have not been established for this bodyfluid. The test result must be integrated into the clinicalcontext for interpretation.Testing performed at: [facility] [address] [place] [address] 04/28/2025 10:2 8 AM EST 04/28/2025 12:13 PM EST Generic External Data Provider LAB BODY FLUIDS A ND STOOLS ORDERABLES Final Result Performing Organization Address City/[facility]/ZIP Co de Phone Number [facility] [address] [place] [phone] * Other Reference Test - Misc (04/28/2025 10:28 AM EST) Other Ref Test Misc SEE NOTE [facility] Comment:See scanned report i n EMR 04/28/2025 10:2 8 AM EST 04/28/2025 12:13 PM EST Narrative [facility] - 04/29/2025 7:27 AM EST bilirubin level for intraabdominal fluid Generic External Data Provider LAB BLOOD ORDERAB LES Final Result Performing Organization Address [facility] de Phone Number [facility] [address] [place] [phone] * Creatinine, body fluid (04/28/2025 10:28 AM EST) Creatinine Peritoneal Fluid 1.3 [facility] Comment:Units: MG/DLThe refe rence range and other method performancespecifications have not been established for this bodyfluid. The test result must be integrated into the clinicalcontext for interpretation.Testing performed at: [facility] [address] [place] [address] 04/28/2025 10:2 8 AM EST 04/28/2025 12:13 PM EST Generic External Data Provider LAB BODY FLUIDS A ND STOOLS ORDERABLES Final Result Performing Organization Address [facility] de Phone Number [facility] [address] [place] [phone] * Gross and Microscopic Level 2 (04/06/2025 11:22 AM EDT) 04/06/2025 11:2 2 AM EDT 04/06/2025 1:50 PM EDT Turner [facility] - 04/09/2025 10:21 AM EDT ----- ------- Name: Aurora Ferrara Age/Sex: 44/F [facility] 1980 [id number]#: [id number] Attend Dr: Kashmir Freeman MD Re04/06/25 Status: [facility] Location: [facility] Disch: ----- ------- SPEC : [id number] RECD: 04/06/25 STATUS: NATASHARodney JOHN NUM: [id number] ROYCE: 04/06/[address]: Kashmir Freeman MD ENTERED: 04/06/25 SP TYPE: Surgical OTHR DR: STAN MARKS [facility] ORDERED: Gross Micro L2, Gross Micro [...] fibrofatty subcutaneous soft tissue without discrete abnormality. Hat Cleaner sections are submitted in cassettes A1 -3. B. Received in formalin is a 1.6 cm in greatest dimension portion of fibrofatty soft tissue, sectioned and entirely submitted in cassette B1. (DTL) IHC S/NG Disclaimer NOTE: Unless otherwise stated, all tissue is formalin-fixed and paraffin-embedded. Some or all of the immunohistochemical tests reported herein may have been developed and their performance characteristics determined by [facility]. They have not been cleared [...] Aurora Ferrara Age/Sex: 44/F : 1980 Unit#: [id number] Attend Dr: Kashmir Freeman MD Re04/06/25 Status: [facility] Location: [facility] Disch: ----- ------- SPEC : [id number] RECD: 04/06/25 STATUS: NELI JOHN NUM: [id number] ROYCE: 04/06/25 [facility] DR: Kashmir Freeman MD ENTERED: 04/06/25 SP TYPE: Surgical OTHR DR: STAN MARKS CNM ORDERED: Gross Micro L2, Gross Micro L3 Copies To: Kashmir Freeman MD [facility] [address] [place] [phone] STAN MARKS CNM [address] [address] ----- ------- Signed (signature on file) Katharina Duron MD 04/09/25 1021 ----- ------- END OF REPORT Generic External Data Provider LAB CYTOLOGY ORDE RABLES Final Result Performing Organization Address [facility] Co de Phone Number [facility] [address] [place] [phone] * Partial Thromboplastin Time, Activated (APTT) (04/02/2025 1:27 PM EDT) Pathologist [facility] Partial Thromboplastin Time 33.6 26.7 - 34.1 SEC [facility] 04/02/2025 1:27 PM EDT 04/02/2025 1:47 PM EDT Generic External Data Provider LAB BLOOD ORDERAB LES Final Result Performing Organization Address [facility] Co de Phone Number [facility] [address] [place] [phone] * (ABNORMAL) Prothrombin Time-INR (04/02/2025 1:27 PM EDT) Prothrombin Time 14.0(H) 10.9 - 12.4 SEC [facility] INTERNATIONAL NORM RATIO 1.2(H) 0.9 - 1.1 [facility] Comment:INTERNATIONAL NORMAL IZED RATIO (INR) [...] ORDERAB LES Final Result Performing Organization Address [facility] Co de Phone Number [facility] [address] [place] [phone] * Type and screen (04/02/2025 1:27 PM EDT) Pathologist [facility] Blood Type ON [facility] Antibody Screen NEGATIVE [facility] 04/02/2025 1:27 PM EDT 04/02/2025 1:40 PM EDT Narrative [facility] - 04/02/2025 2:20 PM EDT WITNESSED BY CAROLINA.Spec expiration changed by JIMMY on 04/02/25Reason: PAT SSSNURSING:Call Blood Bank (ext. [phone]) to band patient on admission.Type and Screen in effect until 2300 on 04/06/25. Generic External Data Provider LAB BLOOD BANK TE ST ORDERABLES Final Result Performing Organization Address [facility]/ZIP Co de Phone Number [facility] [address] [place] [address] [phone] * (ABNORMAL) Comprehensive Metabolic Panel (04/02/2025 1:27 PM EDT) Sodium 141 135 - 145 mmol/L [facility] Potassium 3.5 3.3 - 5.1 mmol/L [facility] Chloride 106 96 - 108 mmol/L [facility] Carbon Dioxide 27 22 - 29 mmol/L [facility] Anion Gap 12 12 - 20 [facility] Urea Nitrogen (BUN) 17(H) 9 - 16 mg/dL [facility] Creatinine, Serum 0.51 0.5 - 1.4 mg/dL [facility] Creatinine Clr Calc Pharmacy 135.2 [facility] Comment:Provided height and weight: 163.83 cm,70.125 kg.eGFR (calculated from the MDRD study equation) and eCrCl(calculated from the Cockcroft-Gault equation) are based ondifferent parameters and may not yield comparable results.If eCrCl result is absurd, please check patient'sheight/weight. Estimated Glomerular Filt Rate >60 [facility] Comment:Chronic Kidney Disea se: Estimated GFR < 60 mL/min/1.28z1Ugscrb Kidney Disease: Estimated GFR < 15 mL/min/1.73m2 Glucose 78 60 - 115 mg/dL [facility] Calcium 9.2 8.4 - 10.2 mg/dL [facility] Bilirubin, Total 0.7 0.0 - 1.0 mg/dL [facility] Aspartate Amino Transferase 25 5 - 31 U/L [facility] Alanine Aminotransferase 24 0 - 31 U/L [facility] Total Protein 6.9 6.5 - 8.0 g/dL [facility] Albumin Level 4.5 3.5 - 5.0 g/dL [facility] Alkaline Phosphatase 72 39 - 117 U/L [facility] 04/02/2025 1:27 PM EDT 04/02/2025 2:14 PM EDT us Generic External Data Provider LAB BLOOD ORDERAB LES Final Result [facility] [address] [place] [phone] * BI US Breast Limited Right (01/22/2025 11:06 AM EDT) Anatomical Region Laterality Modality Breast Right Ultrasound 01/22/2025 11:0 6 AM EDT Narrative 01/22/2025 11:38 AM EDT [facility] [address] [place] [address] Ultrasound Report Signed Patient: Aurora Ferrara MR#: [id number] : 1980 Acct:[id number] Age/Sex: 44 / F ADM Date: 01/22/25 Loc: HO.MAMMO Attending Dr: Stan Marks CNM Ordering Physician: STAN MARKS CNM Date of Service: 01/22/25 Procedure(s): US breast RT limited Accession Number(s): [id number] cc: STAN MARKS CNM EXAMINATIONS: 1. MM [...] 01/22/25 1135 DD/ 1106 TD/TT: 01/22/25 1120 Orthopedic Surgeon: Procedure Note Donotuseinterpreter, Image - 01/22/2025 [facility] [address] [place] [address] Ultrasound Report Signed Patient: Aurora Ferrara [facility]#: [id number] : 1980Acct:[id number] Age/Sex: 44 / FADM Date: 01/22/25 Loc: HO.MAMMO Attending Dr: Stan Marks CNM Ordering Physician: STAN MARKS CNM Date of Service: 01/22/25 Procedure(s): US breast RT limited Accession Number(s): [id number] cc: STAN MARKS CNM EXAMINATIONS: 1. MM [...] Alex MD 01/22/2025 11:35 AM EDT Workstation: [id number] Dictated By: Juan Carlos Alex MD Signed By: <Electronically signed by Juan Carlos Alex MD in OV> 01/22/25 1135 DD/ 1106 TD/TT: 01/22/25 1120 [facility]opedic Surgeon: [facility]ED[facility] Final R esult * HPV DNA, Low/High Risk (01/05/2025 2:20 PM EDT) HPV High Risk Negative Negative [facility] HPV Genotype 16 Negative Negative [facility] HPV Genotype 18 Negative Negative [facility] Comment:HPV testing performe d at [facility] (CLIA#[id number]), [address] [place] [address].Testing for HPV was performed using the [employer]system. The presence of HPV in the female [...] EDT Stan KNOWLES LAB BLOOD ORDERABLES Delphine dillard Result [facility] [address] [place] [phone] * Pap Smear (01/05/2025 2:20 PM EDT) Swab Cervix uteri structure / Unknown 01/05/2025 2:20 PM EDT 01/06/2025 7:35 AM EDT Narrative [facility] - 01/19/2025 8:59 AM EDT ----- ------- Name: Aurora Ferrara Age/Sex: 44/F : 1980 Unit#: [id number] Attend Dr: STAN MARKS CNM Re01/05/25 Status: JOSE SHERMAN Location: HO.LNP Disch: ----- ------- SPEC : [id number] RECD: 01/06/25-734 STATUS: NELI JOHN NUM: [id number] ROYCE: 01/05/25-14[address] [facility] [address]: STAN MARKS [facility] ENTERED: 01/06/25 SP TYPE: Pap Smr [facility] : ORDERED: Pap Smear Interpretation Satisfactory for [...] testing will be performed at [facility] (CLIA #[id number]), [address] [place] [address]. Testing for HPV was performed using the [employer] system. The presence of HPV in the [...] detected. All professional services are performed by [facility] ([address] [place] [address]; ; CLIA #[id number]). The PAP Test is a screening procedure with the inherent possibility of both false negative and false positive results. Results should be interpreted in the context of historic and current clinical findings. Reliability of the PAP Test is enhanced by performing the test on a regular repetitive basis. CONTINUED ON NEXT PAGE ----- ------- Name: Josias,Aurora M Age/Sex: 44/F : 1980 Unit#: [id number] Attend Dr: STAN MARKS CNM Re01/05/25 Status: DEP REF Location: HO.LNP Disch: ----- ------- SPEC : [id number] RECD: 01/06/25 STATUS: NELI JOHN NUM: [id number] ROYCE: 01/05/25-[address] [facility] [address]: STAN MARKS CNM ENTERED: 01/06/25 SP TYPE: Pap Kamini HURST DR: ORDERED: Pap Smear ----- ------- Signed (signature on file) KYRA Edwards (ASCP) 01/19/25 0859 ----- ------- END OF REPORT Stan Marks CNM LAB CYTOLOGY ORDERABLES F inal Result [facility] [address] [place] [phone] [phone] * Lipid Panel, Standard (11/13/2024 9:53 AM EDT) Triglycerides 46 <150 mg/dL [facility] Comment:Desirable Triglyceri de: less than 150 mg/dLBorderline High Triglyceride 150-199 mg/dLHigh Triglyceride: 200-499 mg/dLVery High Triglyceride: greater than or equal to 5OO mg/dL Cholesterol 172 <200 mg/dL [facility] Comment:Desirable Cholestero l: less than 200 mg/dLBorderline High Cholesterol: 200-239 mg/dLHigh Cholesterol: greater than 239 mg/dL LDL Cholesterol Calculated 94 <100 mg/dL [facility] Comment:Desirable LDL: less than 100 mg/dLNear Optimal/Above Optimal LDL: 110- 129 mg/dLBorderline High LDL: 130-159 mg/dLHigh LDL: 160-189 mg/dLVery High LDL: greater than or equal to 190 mg/dL HDL Cholesterol 69 >40 mg/dL [facility] Comment:Desirable HDL: great er than 40 mg/dL Note: This HDL assay may give artificially low results in patients with liver disease. 11/13/2024 9:53 AM EDT 11/13/2024 9:53 AM EDT us Generic External Data Provider LAB BLOOD ORDERAB LES Final Result [facility] [address] [place] [phone] * Hepatitis C Antibody with Reflex to HCV, RNA, Quantitative, Real-Time PCR (04/09/2024 12:15 PM EDT) Hepatitis C Antibody Nonreactive Nonreactive [facility] Comment:Antibodies to HCV no t detected; does not exclude early acuteHCV infection. Blood Venous blood specimen / Unknown 04/09/2024 12:15 PM EDT 04/09/2024 1:17 PM EDT us Magaly Maldonado MD LAB BLOOD ORDERABLES Final Result Performing Organization Address [facility] Co de Phone Number [facility] [address] [place] [phone] * HIV-1/2 Antigen and Antibodies, Fourth Generation, with Reflexes (04/09/2024 12:15 PM EDT) HIV AB/AG Nonreactive Nonreactive [facility] Comment:HIV-1 p24 Ag and/or HIV-1/HIV-2 Ab not detected.A test result that is nonreactive does not exclude thepossibility of exposure to or infection with HIV-1 and/orHIV-2. Nonreactive results in this assay for individualswith prior exposure to HIV-1 and/or HIV-2 may be due toantigen and antibody levels that are below the limit ofdetection of this assay.The [employer] HIV Ag/Ab Combo assay result andsupplemental assay results should be interpreted inconjunction with the patient's clinical presentation,history and other laboratory results. If the results areinconsistent with clinical evidence, additional testing issuggested to confirm the result. Blood Venous blood specimen / Unknown 04/09/2024 12:15 PM EDT 04/09/2024 1:17 PM EDT us Magaly Maldonado MD LAB BLOOD ORDERABLES Final Result Performing Organization Address [facility] Co de Phone Number [facility] [address] [place] [phone] from Last 3 Months or Most Recently Relevant to Health Maintenance Insurance [facility] C3 Care Teams Forklift Mechanic Relationship Specialty Start Date End Date Magaly Mcrae MD [address] [place] [phone] PCP - General Family Medicine 02/19/18 Anne Marie Reza Baker PaintCrnp 04/14/25
--- OUTSIDE RECORDS SUMMARY | 2025-05-10 15:22 | XMS_ITS | Encounter Summary ---
Author Organization [facility] Address [address] [place] [address] Care Team Providers Care Scales Inspector Name Role Phone Thu Tam MD Primary Care Provider + [phone] Encounter Details Date Type Department Care Team (Late st Contact Info) Description 02/04/2025 Lab Requisition [facility] - Main Lab [address] [place] [phone] Bettina Sanford MD 299 [facility] [address] [place] [phone] Abnormal uterine and vaginal bleeding, unspecified Social [...] No endometrium identified 02/05/2025 1:27 PM EDT [facility] ([facility]) [facility] at 1327 EDT Clinical Information Abnormal uterine bleeding 02/05/2025 1:27 PM EDT [facility] Gross Description A. Endometrium, biopsy: Labeled with the patient's name and information. Received in formalin is a 1.1 x 0.8 x 0.2 cm aggregate of irregular pink-red soft tissue fragments admixed with mucoid substance which is submitted in toto in a mesh bag in one cassette, multiple pieces, x 2. LENARD 02/05/2025 1:27 PM EDT [facility] Disclaimer Unless otherwise specified, all tissue is 10% NB formalin fixed and paraffin embedded. 02/05/2025 1:27 PM EDT [facility] Tissue Endometrial structure / Unknown 02/04/2025 02/04/2025 12:36 PM EDT us Bettina Sanford MD LAB PATHOLOGY ORDERABLES Final Result [facility] [address] [place] [address], documented in this encounter Visit Diagnoses Diagnosis Abnormal uterine and vaginal bleeding, unspecified documented in this encounter Care Teams Scales Inspector Relationship Specialty Start Date End Date Thu Tam MD [address] [place] [phone] PCP - General Internal Medicine 03/13/24 documented as of this encounter
--- OUTSIDE RECORDS SUMMARY | 2025-05-10 15:22 | XMS_ITS | Clinical Summary ---
Author Organization [address] [facility] Address [address] [place] [address] Phone Care Team Providers Care Metal Temperer Name Role Phone Thu Tam MD Primary Care Provider + [phone] Allergies No known active allergies Medications DICLOFENAC [...] 1 (one) time if needed. 5 Active Social History Tobacco Use Types Packs/Day [...] topic Insurance MEDICAID - [place] Care Teams Metal Temperer Relationship Specialty Start Date End Date Thu Tam MD [address] [place] [phone] PCP - General Internal Medicine 03/13/24
--- OUTSIDE RECORDS SUMMARY | 2025-05-10 15:23 | XMS_ITS | Encounter Summary ---
Author Organization [employer] Address [address] [facility] 7t [place] [address] Care Team Providers Care Continuous Mining Machine Company Miner Name Role Phone Magaly Mcrae MD Primary Care Provide r Encounter Details Date Type Department Care Team (Latest Contact Info) Description 04/05/2025 Results Follow-Up [facility] MEDICINE [address] [place], [place] [phone] Diya York CNM [address] [place] [address] Prothrombin Time-INR, Partial Thromboplastin Time, Activated (APTT), [...] Description 06/23/2025 3:30 PM EST Office Visit [facility] MEDICINE [address] [place] [phone] Magaly Mcrae MD [address] [place] [address] documented as of this encounter Visit Diagnoses Not on filedocumented in this encounter Additional Health Concerns Assessment Noted Time PHQ-9 Depression Total Score: 15 025 11:32 AM EDT documented as of this encounter Care Teams Continuous Mining Machine Company Miner Relationship Specialty Start Date End Date Magaly Mcrae MD [address] [place] [phone] PCP - General Family Medicine 02/19/18 Anne Marie Reza Sales Vice PresidentCampus Security Officer 04/14/25 documented as of this encounter
--- OUTSIDE RECORDS SUMMARY | 2025-05-10 15:23 | XMS_ITS | Encounter Summary ---
Author Organization [employer] Address [address] [facility] 7t [place] [address] Care Team Providers Care Claim Examiner Name Role Phone Magaly Mcrae MD Primary Care Provide r Encounter Details Date Type Department Care Team ([facility] st Contact Info) Description 04/29/2025 Results Follow-Up [facility] MEDICINE [address] [place], [place] [phone] Diya York CN [address] [place] [address] CT Abdomen Pelvis w/ Contrast, CBC auto [...] 3:30 PM EST Office Visit [facility] [address] [place] [address] Magaly Mcrae MD [address] [place] [address] documented as of this encounter Visit Diagnoses Not on filedocumented in this encounter Additional Health Concerns Assessment Noted Time PHQ-9 Depression Total Score: 12 025 3:36 PM EST documented as of this encounter Care Teams Claim Examiner Relationship Specialty Start Date End Date Magaly Mcrae MD [address] [place] [address] PCP - General Family Medicine 02/19/18 Anne Marie Reza Art HandlerFamily Service Caseworker 04/14/25 documented as of this encounter
--- OUTSIDE RECORDS SUMMARY | 2025-05-10 15:23 | XMS_ITS | Encounter Summary ---
Author Organization [facility] Address [address] [facility] 7 [place] [address] Care Team Providers Care Salesperson Women'S Dresses Name Role Phone Magaly Mcrae MD Primary Care Provide r Reason for Visit * Reason Onset Date Comments Referral 04/02/2025 Encounter Details Date Type Department Care Team ([facility] st Contact Info) Description 04/02/2025 Telephone [facility] MEDICINE [address] [place], [place] [phone] Magaly Mcrae MD [address] [place], [place] [phone] Referral Social History Tobacco Use Types Packs/Day [...] EDT Please place [facility] original referral for eczema however [...] is scheduled for 01/01/2026. Contact pt at [phone] documented in this encounter Plan of Treatment Upcoming Encounters Date Type Department Care Team (Late st Contact Info) Description 06/23/2025 3:30 PM EST Office Visit [facility] MEDICINE [address] [place] [address] Magaly Mcrae MD [address] [place], [place] [phone] documented as of this encounter Visit Diagnoses Not on filedocumented in this encounter Additional Health Concerns Assessment Noted Time PHQ-9 Depression Total Score: 15 025 11:32 AM EDT documented as of this encounter Care Teams Salesperson Women'S Dresses Relationship Specialty Start Date End Date Magaly Mcrae MD [address] [place] [address] PCP - General Family Medicine 02/19/18 Anne Marie Reza Community ManagerSeaport Planning Manager 04/14/25 documented as of this encounter
== END 2025-05-10 12:30 | disposition home or self-care (01) ==
LOC: HO.HBS 11:40
PROVIDERS: PCP Advanced Practice Midwife; Visit Provider Nurse Practitioner
DX: Z98.890 Other specified postprocedural states (principal)
CPT/HCPCS: 99024

== ENCOUNTER 2025-05-12 14:02 | Outpatient (AMB) | payer MEDICAID, SELFPAY ==
--- NOTE | 2025-05-12 15:22 | A.OFFVIS_ITS ---
VS Expanded 05/12/25 15:30 BP 99/55 L Blood Pressure Location Rt brachial Blood Pressure Position Sitting Pulse 52 Pulse Source Pulse Oximeter Temp 97.2 F Temperature Source Temporal Artery Scan Pulse Oximetry 99 Oxygen Delivery Method Room Air Intake Visit Reasons: OV Panniculectomy 04/06/25 Territory Development Manager Required: No Accompanied by: Other Relationship Allergies No Known Allergies Allergy (Verified 05/10/25 12:03) Medication List - Last Reconciled 05/12/25 by Denise Everett CNP bupropion HCl SR 200 mg PO QAM cholecalciferol (vitamin D3) (Vitamin D3) 25 mcg PO DAILY docusate sodium (Colace) 100 mg PO DAILY doxycycline hyclate 100 mg PO BID fluticasone propionate 50 mcg/actuation 1 spray intranasal BID hydroxyzine HCl 25 mg PO BID PRN levofloxacin 500 mg PO DAILY eeqmtpnrwshr-tmj-kuka-FA-vit K 45 mg iron- 800 mcg-120 mcg (Bariatric Multivitamins) 1 cap PO .daily in evening ondansetron 4 mg PO Q12H sumatriptan succinate 25 mg PO QID PRN trazodone 25 - 50 mg PO BEDTIME PRN HPI Comments Details: 44 year old woman s/p panniculectomy 04/06/2025. On 04/28/2025, patient presented to office with reports of +odor x4 days and green drain output x1 day. She denied fevers at home but feels natural resources engineer abdomen. Thought pain had increased in abdomen. Fluid from her drain was sent to the lab, and she was referred to the ER for CT abdomen and blood work. Lab and imaging results below. ABX was changed from Keflex BID to Doxycycline BID and Levofloxacin QD. On 04/30/2025, she presented to office for recheck of surgical site and flushing of the drain. She was flushed with a total of 20cc 50% saline/50% hydrogen peroxide. On 05/03/2025, she presented for recheck and repeat flushing. She reported drain output was 10cc each day over the weekend. She denied any odor or green colored output since flushing. Increased abd pain/discomfort in this area, to the point that she was given prn Oxycodone, which was helpful. Denied constitutional symptoms or feeling ill/feverish. On 05/05/2025, she presented for recheck and repeat flushing. She reported drain output 20cc the other day, and 10cc that morning. No green, no odor. Denied constitutional symptoms. Still taking ABX as prescribed. No pain. On 05/10/2025, her drain outputs were 1-5mL per day on her output record. No green, no odor. Denied constitutional symptoms. Still taking ABX as prescribed. No pain. Fluid from her SHARYN drain was sent for gram stain and cultures. Today, she is doing well. Still has < 5mL output per day. No odor or infectious symptoms. Still taking ABX. Eager to get drain removed. Also wants to advance her diet. [facility] Medical History Postgastrectomy malabsorption GERD (gastroesophageal reflux disease) Depression Hx of bipolar disorder Panic attack Surgical History History of sleeve gastrectomy History of endometrial ablation H/O parathyroidectomy History of esophagogastroduodenoscopy (EGD) History of tonsillectomy and adenoidectomy Hx of tubal ligation Family History Mother Heart disease Arthritis Father Liver disease Herniated disc Brother No problems noted. Brother No problems noted. Brother No problems noted. Sister Diabetes Sister Migraine Sister HIV disease Sister No problems noted. Sister No problems noted. Daughter Asthma Son No problems noted. Paternal Aunt Breast cancer Social History Household Members: Family Housing: Apartment Are you a primary caregiver assisted living to a significant other at home: No Do you presently have visiting nurse or other home services: No 75 years or older and lives alone: No Alcohol intake: never Patient Tobacco Use Status: Former Tobacco user Tobacco use type: Cigarette Substance Use Type: Marijuana service: No Current occupational status: unemployed Female Reproductive History Menstrual Age of Menarche: 13 Physical Exam Vital Signs: Last Vital Signs Temp 97.2 F 05/12/25 15:30 Pulse 52 05/12/25 15:30 BP 99/55 L 05/12/25 15:30 Pulse Ox 99 05/12/25 15:30 Oxygen Delivery Method Room Air 05/12/25 15:30 Const General: cooperative, healthy appearing, comfortable and no acute distress Orientation/consciousness: patient oriented x3 GI Other: abd soft non tender non distended. panniculectomy incision and umbilicus are healing well without erythema or open areas. Drainage in bulb is scant amount of dark yellow serous, no sediment, does not appear to be purulent. No green noted. No odor. New DSD applied. Neuro General: patient oriented x3 Results Reviewed Results Reviewed: CT abdomen/pelvis 04/28/2025 reports: IMPRESSION: 1. No acute findings in the abdomen or pelvis. 2. Subcutaneous stranding in the anterior subcutaneous abdominal fat related to recent panniculectomy. A surgical drain is in place in the inferior anterior abdominal wall. Just superior and right lateral of the umbilicus, just anterior to the rectus sheath, there is a 6 mm nonenhancing fluid collection which may represent a seroma. This does not appear definitively drainable. Fluid collected from SHARYN drain 04/28/2025: Creatinine 1.3 Albumin 1 Glucose < 2 Amylase 38 Bilirubin 2.7 Blood draw 04/28/2025: WBC 4.9 Cultures as of 05/03/2025: Organism 1 Pseudomonas aeruginosa Quantity 4+ Organism 2 Enterobacter cloacae complex Quantity 4+ Organism 3 Methicillin Res Staph Aureus Quantity 4+ Susceptible to tetracycline and ciprofloxacin Fluid collected from SHARYN drain 05/10/2025: Gram stain Final 05/10/25-1356 Gram stain results: No polys 4+ Gram-negative rods Routine Culture Preliminary 05/12/25-1045 Organism 1 Gram negative noe Quantity 2+ Assessment & Plan Assessment & Plan (1) S/P panniculectomy: Code(s): Z98.890 - Other specified postprocedural states Category: Medical Plan: - SHAYRN was emptied for about 2mL and new SHARYN bulb was attached. - No flushing today, per Dr. Tan - She will continue her ABX as prescribed, doxycycline BID and levofloxacin QD. Per culture results, the bacteria is susceptible to tetracycline and ciprofloxacin. - Empty the drain as she has been, once in the morning, and record the outputs. - She is still on the liquid only meal plan, she can resume the post- panniculectomy diet she was on before - Call office for any concerns/questions, S&S worsening infection - We will await final culture results before removing SHARYN drain. For now, continue ABX. Follow up: as scheduled next week
[2025-05-12 15:30] VITALS: BP 99/55; PULSE 52; TEMP 36.2; O2SAT 99
--- OUTSIDE RECORDS SUMMARY | 2025-05-12 16:56 | XMS_ITS | Encounter Summary ---
Author Organization [facility] Address [address] [place] [address] Care Team Providers Care Lithograph Operator Name Role Phone Thu Tam MD Primary Care Provider + [phone] Encounter Details Date Type Department Care Team (Late st Contact Info) Description 02/04/2025 Lab Requisition [facility] - Main Lab [address] [place] [phone] Bettina Sanford MD 299 [facility] [address] [place] [phone] Abnormal uterine and vaginal bleeding, unspecified Social [...] endometrium identified 02/05/2025 1:[address] [facility] at 1327 EDT Clinical Information Abnormal uterine bleeding 02/05/2025 1:27 PM EDT [facility] Gross Description A. Endometrium, biopsy: Labeled with the patient's name and information. Received in formalin is a 1.1 x 0.8 x 0.2 cm aggregate of irregular pink-red soft tissue fragments admixed with mucoid substance which is submitted in toto in a mesh bag in one cassette, multiple pieces, x 2. LENARD 02/05/2025 1:27 PM EDT [facility] Disclaimer Unless otherwise specified, all tissue is 10% NB formalin fixed and paraffin embedded. 02/05/2025 1:27 PM EDT [facility] Tissue Endometrial structure / Unknown 02/04/2025 02/04/2025 12:36 PM EDT us Bettina Sanford MD LAB PATHOLOGY ORDERABLES Final Result [facility] [address] [place] [address], documented in this encounter Visit Diagnoses Diagnosis Abnormal uterine and vaginal bleeding, unspecified documented in this encounter Care Teams Lithograph Operator Relationship Specialty Start Date End Date Thu Tam MD [address] [place] [phone] PCP - General Internal Medicine 03/13/24 documented as of this encounter
--- OUTSIDE RECORDS SUMMARY | 2025-05-12 16:56 | XMS_ITS | Encounter Summary ---
Author Organization [employer] Address 75 [facility] 7t [place] [address] Care Team Providers Care Clinical Dermatologist Name Role Phone Magaly Mcrae MD Primary Care Provide r Encounter Details Date Type Department Care Team (Latest Contact Info) Description 04/05/2025 Results Follow-Up [facility] [address] [place], [place] [phone] Diya York CNM [address] [place] [address] Prothrombin Time-INR, Partial Thromboplastin Time, Activated (APTT), [...] 3:30 PM EST Office Visit [facility] [address] [place] [phone] Magaly Mcrae MD [address] [place] [address] documented as of this encounter Visit Diagnoses Not on filedocumented in this encounter Additional Health Concerns Assessment Noted Time PHQ-9 Depression Total Score: 15 025 11:32 AM EDT documented as of this encounter Care Teams Clinical Dermatologist Relationship Specialty Start Date End Date Magaly Mcrae MD [address] [place] [phone] PCP - General Family Medicine 02/19/18 Anne Marie Reza Centerless Grinder OperatorReturn Clerk 04/14/25 documented as of this encounter
--- OUTSIDE RECORDS SUMMARY | 2025-05-12 16:56 | XMS_ITS | Encounter Summary ---
Author Organization [employer] Address [address] [facility] [address] [place] [address] Care Team Providers Care Waste/Materials Exchange Specialist Name Role Phone Magaly Mcrae MD Primary Care Provide r Encounter Details Date Type Department Care Team ([facility] st Contact Info) Description 02/13/2024 Telephone [facility] MEDICINE [address] [place], [place] [phone] Magaly Mcrae MD [address] [place], [place] [phone] Social History Tobacco Use Types Packs/Day Years [...] Description 06/23/2025 3:30 PM EST Office Visit [facility]ICINE [address] [place] [phone] Magaly Mcrae MD [address] [place] [phone] documented as of this encounter Visit Diagnoses Not on filedocumented in this encounter Additional Health Concerns Assessment Noted Time PHQ-9 Depression Total Score: 11 023 3:07 PM EDT documented as of this encounter Care Teams Waste/Materials Exchange Specialist Relationship Specialty Start Date End Date Magaly Mcrae MD [address] [place] [phone] PCP - General Family Medicine 02/19/18 Anne Marie Reza Grocery ClerkBundle Packer 04/14/25 documented as of this encounter
--- OUTSIDE RECORDS SUMMARY | 2025-05-12 16:56 | XMS_ITS | Encounter Summary ---
Author Organization [facility] Address 75 [facility] 7t [place] [address] Care Team Providers Care Felled Seam Operator Chainstitch Name Role Phone Magaly Mcrae MD Primary [...] Description 06/23/2025 3:30 PM EST Office Visit [facility] MEDICINE [address] [place] [address] Magaly Mcrae MD [address] [place] [address] documented as of this encounter Procedures Procedure Name Priority Date/Time Associated Diagnosis Comments GRAM STAIN RESULT (NON ORDERABLE) Routine 05/10/2025 11:40 AM EST documented in this encounter Results * Gram Stain Result (05/10/2025 11:40 AM EST) 05/10/2025 11:4 0 AM EST 05/10/2025 12:45 PM EST Comment:Abdom Fld Narrative [facility] - 05/12/2025 10:45 AM EST Abdominal swab Gram stain results: No polys 4+ Gram-negative rods Abdominal swab Gram negative noe Quant Org ID 2+ Specimen Source: Abdominal Fluid us Generic External Data Provider HISTORICAL/NON OR DERABLE LABS Final Result [facility] [address] [place] [phone] documented in this encounter Visit Diagnoses Not on filedocumented in this encounter Additional Health Concerns Assessment Noted Time PHQ-9 Depression Total Score: 12 025 3:36 PM EST documented as of this encounter Care Teams Felled Seam Operator Chainstitch Relationship Specialty Start Date End Date Magaly Mcrae MD [address] [place] [address] PCP - General Family Medicine 02/19/18 Anne Marie Reza Wellness ManagerSenior Structural Engineer 04/14/25 documented as of this encounter
--- OUTSIDE RECORDS SUMMARY | 2025-05-12 16:56 | XMS_ITS | Encounter Summary ---
Author Organization [employer] Address [address] [place] [address] Care Team Providers Care Picker And Packer Name Role Phone Magaly Mcrae MD Primary Care Provide r Encounter Details Date Type Department Care Team ([facility] st Contact Info) Description 04/29/2025 Results Follow-Up [facility] [address] [place], [place] [phone] Diya York CN [address] [place] [address] CT Abdomen Pelvis w/ Contrast, CBC auto [...] Description 06/23/2025 3:30 PM EST Office Visit [facility] [address] [place] [address] Magaly Mcrae MD [address] [place] [address] documented as of this encounter Visit Diagnoses Not on filedocumented in this encounter Additional Health Concerns Assessment Noted Time PHQ-9 Depression Total Score: 12 025 3:36 PM EST documented as of this encounter Care Teams Picker And Packer Relationship Specialty Start Date End Date Magaly Mcrae MD [address] [place] [address] PCP - General Family Medicine 02/19/18 Anne Marie Reza Principle Industrial HygienistSecretary Board Of Commission[employer] 04/14/25 documented as of this encounter
--- OUTSIDE RECORDS SUMMARY | 2025-05-12 16:56 | XMS_ITS | Clinical Summary ---
Author Organization [employer] Address [address] [facility] 7[address] [place] [address] Care Team Prov[address] Care Road Patcher Name Role Phone Magaly Mcrae MD Primary [...] Plan (02/07/2024 1:00 PM EDT): Refer to Architectural Engineering Teacher. Chronic pain of left knee 10/24/2022 Assessment [...] seek help PLAN: 1. Follow up with [facility]: Not recommended for follow-up 2. Patient [...] Provider, Generic External Data 04/29/2025 Results Follow-Up [facility] [address] [place] [address] Abdomen Pelvis w/ Contrast, CBC auto differential, Hepatic Function Panel, Additional followed-up results: 13 04/28/2025 Orders Only GENERIC EXTERNAL DATA DEPARTMENT Provider, Generic External Data 04/17/2025 Refill [facility] [address] [place] [address] Magaly Mcrae MD Seasonal allergic rhinitis, unspecified trigger 04/14/2025 Telephone [facility] [address] [place] [address] Magaly Mcrae MD Care Coordination (ICP Care Plan) 04/13/2025 3:15 PM EST Office Visit [address] [address] Magaly Mcrae MD Encounter for preventive care (Primary Dx); Dietary counseling; Exercise counseling; Post-surgical hypoparathyroidism; Irritant contact dermatitis, unspecified trigger 04/13/2025 Travel 04/12/[address] [address] Magaly Mcrae MD Chart Prep 04/06/2025 Orders Only GENERIC EXTERNAL DATA DEPARTMENT Provider, Generic External Data 04/06/2025 Patient Outreach [facility] [address] [place] [address] Magaly Mcrae MD Pre-visit Planning ([facility] unable to reach [facility]) 04/05/[address] [address] Magaly Mcrae MD tammy recall 04/05/2025 Results Follow-Up [address] [address] Stan Marks, CNMaty Prothrombin Time-INR, Partial Thromboplastin Time, Activated (APTT), CBC auto differential, Additional followed-up results: 2 04/02/2025 Orders Only [address] [address] Magaly Mcrae MD Eczema, unspecified type (Primary Dx) 04/02/[address] [phone] Magaly Mcrae MD Referral 02/15/2025 Patient Outreach [address] [phone] Magaly Mcrae MD Care Coordination (CM/CHW Efrain Torres, [facility] f/u, program graduation) from Last 3 Months [...] Description 06/23/2025 3:30 PM EST Office Visit [facility] [address] [place], [place] [phone] Magaly Mcrae MD [address] [place], [place] [phone] Health Maintenance Due Date Last Done Comments [...] 05/10/2025 12:45 PM EST Comment:Abdom Fld Narrative [facility] - 05/12/2025 10:45 AM EST Abdominal swab Gram stain results: No polys 4+ Gram-negative rods Abdominal swab Gram negative noe Quant Org ID 2+ Specimen Source: Abdominal Fluid us Generic External Data Provider HISTORICAL/NON OR DERABLE LABS Final Result [facility] [address] [place] [phone] * CT Abdomen Pelvis w/ Contrast (04/28/2025 4:35 PM EST) Anatomical Region Laterality Modality Body, Pelvis, Abdomen Computed T omography 04/28/2025 4:35 PM EST Narrative 04/28/2025 5:[address] [address] [address] Scan Report Signed Patient: Aurora Ferrara MR#: [id number] : 1980 Acct:[id number] Age/Sex: 44 / F ADM Date: 04/28/25 Loc: HO.ED Attending Dr: Ordering Physician: Luisa Joyner Date of Service: 04/28/25 Procedure(s): CT abdomen pelvis w IV con Accession Number(s): [id number] cc: Luisa Joyner; STAN MARKS [facility] Report Number: [id number]: Total DLP = 475.00 mGy-cm Reason for [...] 04/28/2025 05:02 PM [facility] Dictated By: Todd Nguyễn MD Signed By: <Electronically signed by Todd Nguyễn MD in OV> 04/28/25 1702 DD/ 1635 TD/TT: 04/28/25 1647 Rotating Field Assembler: Procedure Note Donotuseinterpreter, Image - 04/28/[address] [address] [address] Scan Report Signed Patient: Aurora Ferrara [facility]#: [id number] : 1980Acct:[id number] Age/Sex: 44 / FADM Date: 04/28/25 Loc: HO.ED Attending Dr: Ordering Physician: Luisa Joyner Date of Service: 04/28/25 Procedure(s): CT abdomen pelvis w IV con Accession Number(s): [id number] cc: Luisa Joyner; STAN MARKS [facility] Report Number: [id number]: Total DLP = 475.00 mGy-cm Reason for [...] 04/28/25 1702 DD/ 1635 TD/TT: 04/28/25 1647 Rotating Field Assembler: us [facility] External Provider IMG CT PROCEDURES Final Result * Lactic Acid (04/28/2025 12:47 PM EST) Lactic Acid 1.3 0.5 - 2.0 mmol/L [facility] 04/28/2025 12:4 7 PM EST 04/28/2025 12:51 PM EST Generic External Data Provider LAB BLOOD ORDERAB LES Final Result Performing Organization Address [facility]/ZIP Co de Phone Number [facility] [address] [place] [phone] * Blood Culture (First) (04/28/2025 12:36 PM EST) Blood Venous blood specimen / Unknown 04/28/2025 12:36 PM EST 04/28/2025 12:40 PM EST Comment:Blood Narrative [facility] - 05/03/2025 2:41 PM EST Blood Culture (First) No growth after 5 days. Specimen Source: Blood Generic External Data Provider LAB MICROBIOLOGY - GENERAL ORDERABLES Final Result Performing Organization Address [facility] de Phone Number [facility] [address] [place] [phone] * Blood Culture (Second) (04/28/2025 12:36 PM EST) Blood Venous blood specimen / Unknown 04/28/2025 12:36 PM EST 04/28/2025 12:40 PM EST Comment:Blood Narrative [facility] - 05/03/2025 2:41 PM EST Blood Culture (Second) No growth after 5 days. Specimen Source: Blood Generic External Data Provider LAB MICROBIOLOGY - GENERAL ORDERABLES Final Result Performing Organization Address [facility] Co de Phone Number [facility] [address] [place] [phone] * CBC auto differential (04/28/2025 12:36 PM EST) Only the most recent of2 resultswithin the time period is included. White Blood Count 4.9 4.8 - 10.8 X10*3/uL [facility] Red Blood Count 4.34 4.20 - 5.50 X10*6/uL [facility] Hemoglobin 13.5 12.0 - 16.0 g/dl [facility] Hematocrit 39.7 37.0 - 47.0 % [facility] Mean Corpuscular Volume 91.5 80.0 - 98.0 fL [facility] Mean Corpuscular Hemoglobin 31.1 27.0 - 33.0 pg [facility] Mean Corpuscular HGB Conc 34.0 31.0 - 35.0 g/dl [facility] Red Cell Distribution Width 11.3 11.0 - 16.0 % [facility] Platelet Count 280 160 - 400 X10*3/uL [facility] Mean Platelet Volume 9.5 9.4 - 12.3 fL [facility] Neutrophils Percent Auto 64.6 45 - 73 % [facility] Imm Gran Pct Auto 0.2 0.0 - 0.4 % [facility] Lymphocytes Percent Auto 25.9 20 - 40 % [facility] Monocytes Percent Auto 7.9 2 - 11 % [facility] Eosinophils Percent Auto 1.0 0 - 4 % [facility] Basophils Percent Auto 0.4 0 - 2 % [facility] NRBC Pct Auto 0.0 0.0 - 0.2 /100WBC [facility] Neutrophils Absolute Auto 3.2 2.0 - 8.3 x10*3/uL [facility] Imm Gran Abs Auto 0.01 0.00 - 0.03 X10*3/uL [facility] Lymphocytes Absolute Auto 1.3 1.2 - 4.9 X10*3/uL [facility] Monocytes Absolute Auto 0.4 0.1 - 1.2 X10*3/uL [facility] Eosinophils Absolute Auto 0.1 0.0 - 0.4 X10*3/uL [facility] Basophils Absolute Auto 0.0 0.0 - 0.2 X10*3/uL [facility] NRBC Abs Auto 0.000 0.0 - 0.012 X10*3/uL [facility] 04/28/2025 12:3 6 PM EST 04/28/2025 12:40 PM EST us Generic External Data Provider LAB BLOOD ORDERAB LES Final Result Performing Organization Address City/[facility]/ZIP Co de Phone Number [facility] [address] [place] [phone] * hCG, Total, Quantitative (04/28/2025 12:36 PM EST) HCG Quantitative 4 mIU/mL [facility] Comment:Weeks post LMP Appro ximate hCG(Last Menstrual Period) Range (mIU/ml)3 - 4 weeks 9 - 1304 - 5 weeks 75 - 2,6005 - 6 weeks 850 - 20,8006 - 7 weeks 4000 - 100,2007 - 12 weeks 11,500 - 289,40135 - 16 weeks 18,300 - 137,52677 - 29 weeks (2nd trimester) 1,400 - 53,86586 - 41 weeks (3rd trimester) 940 - [...] ORDERAB LES Final Result Performing Organization Address [facility] Co de Phone Number [facility] [address] [place] [phone] * Magnesium (04/28/2025 12:36 PM EST) Magnesium 2.2 1.6 - 2.6 mg/dL [facility] 04/28/2025 12:3 6 PM EST 04/28/2025 12:40 PM EST Generic External Data Provider LAB BLOOD ORDERAB LES Final Result Performing Organization Address [facility]/ZIP Co de Phone Number [facility] [address] [place] [phone] * Lipase (04/28/2025 12:36 PM EST) Pathologist [facility] Lipase 28 8 - 78 U/L [facility] 04/28/2025 12:3 6 PM EST 04/28/2025 12:40 PM EST Generic External Data Provider LAB BLOOD ORDERAB LES Final Result Performing Organization Address [facility]/ZIP Co de Phone Number [facility] [address] [place] [phone] * (ABNORMAL) Hepatic Function Panel (04/28/2025 12:36 PM EST) [facility] Bilirubin, Total 0.7 0.0 - 1.0 mg/dL [facility] Bilirubin, Direct 0.2 0.0 - 0.5 mg/dL [facility] Aspartate Amino Transferase 29 5 - 31 U/L [facility] Alanine Aminotransferase 48(H) 0 - 31 U/L [facility] Total Protein 7.7 6.5 - 8.0 g/dL [facility] Albumin Level 4.8 3.5 - 5.0 g/dL [facility] Alkaline Phosphatase 84 39 - 117 U/L [facility] 04/28/2025 12:3 6 PM EST 04/28/2025 12:40 PM EST Generic External Data Provider LAB BLOOD ORDERAB LES Final Result Performing Organization Address [facility] Co de Phone Number [facility] [address] [place] [phone] * (ABNORMAL) Basic Metabolic Panel (04/28/2025 12:36 PM EST) Pathologist [facility] Sodium 139 135 - 145 mmol/L [facility] Potassium 3.8 3.3 - 5.1 mmol/L [facility] Chloride 104 96 - 108 mmol/L [facility] Carbon Dioxide 28 22 - 29 mmol/L [facility] Anion Gap 11(L) 12 - 20 [facility] Urea Nitrogen (BUN) 16 9 - 16 mg/dL [facility] Creatinine, Serum 0.53 0.5 - 1.4 mg/dL [facility] Creatinine Clr Calc Pharmacy 121.8 [facility] Comment:Provided height and weight: 165.1 cm,67.132 kg.eGFR (calculated from the MDRD study equation) and eCrCl(calculated from the Cockcroft-Gault equation) are based ondifferent parameters and may not yield comparable results.If eCrCl result is absurd, please check patient'sheight/weight. Estimated Glomerular Filt Rate >60 [facility] Comment:Chronic Kidney Disea se: Estimated GFR < 60 mL/min/1.48y8Xujrmt Kidney Disease: Estimated GFR < 15 mL/min/1.73m2 Glucose 83 60 - 115 mg/dL [facility] Calcium 9.7 8.4 - 10.2 mg/dL [facility] 04/28/2025 12:3 6 PM EST 04/28/2025 12:40 PM EST us Generic External Data Provider LAB BLOOD ORDERAB LES Final Result Performing Organization Address [facility] de Phone Number [facility] [address] [place] [phone] * Amylase, Peritoneal Fluid (04/28/2025 10:28 AM EST) Amylase, Peritoneal Fluid 38 [facility] Comment:Units: U/LThe refere nce range and other method performancespecifications have not been established for this bodyfluid. The test result must be integrated into the clinicalcontext for interpretation.Testing performed at: [facility] [address] [place] [id number] 04/28/2025 10:2 8 AM EST 04/28/2025 12:13 PM EST Generic External Data Provider LAB BODY FLUIDS A ND STOOLS ORDERABLES Final Result Performing Organization Address [facility] Co de Phone Number [facility] [address] [place] [phone] * Glucose Peritoneal Fluid (04/28/2025 10:28 AM EST) Glucose, Peritoneal Fluid <2 [facility] Comment:Units: MG/DLThe refe rence range and other method performancespecifications have not been established for this bodyfluid. The test result must be integrated into the clinicalcontext for interpretation.Testing performed at: [facility] [address] [place] [id number] 04/28/2025 10:2 8 AM EST 04/28/2025 12:13 PM EST Generic External Data Provider LAB BODY FLUIDS A ND STOOLS ORDERABLES Final Result Performing Organization Address [facility] de Phone Number [facility] [address] [place] [phone] * Albumin Peritoneal Fluid (04/28/2025 10:28 AM EST) Albumin Peritoneal Fluid 1.0 [facility] Comment:Units: GM/DLThe refe rence range and other method performancespecifications have not been established for this bodyfluid. The test result must be integrated into the clinicalcontext for interpretation.Testing performed at: [facility] [address] [place] [address] 04/28/2025 10:2 8 AM EST 04/28/2025 12:13 PM EST us Generic External Data Provider LAB BODY FLUIDS A ND STOOLS ORDERABLES Final Result Performing Organization Address [facility] de Phone Number [facility] [address] [place] [phone] * Other Reference Test - Misc (04/28/2025 10:28 AM EST) Other Ref Test Misc SEE NOTE [facility] Comment:See scanned report i n EMR 04/28/2025 10:2 8 AM EST 04/28/2025 12:13 PM EST Narrative [facility] - 04/29/2025 7:27 AM EST bilirubin level for intraabdominal fluid Generic External Data Provider LAB BLOOD ORDERAB LES Final Result Performing Organization Address [facility] Co de Phone Number [facility] [address] [place] [phone] * Creatinine, body fluid (04/28/2025 10:28 AM EST) Creatinine Peritoneal Fluid 1.3 [facility] Comment:Units: MG/DLThe refe rence range and other method performancespecifications have not been established for this bodyfluid. The test result must be integrated into the clinicalcontext for interpretation.Testing performed at: [facility] [address] [place] [address] 04/28/2025 10:2 8 AM EST 04/28/2025 12:13 PM EST Generic External Data Provider LAB BODY FLUIDS A ND STOOLS ORDERABLES Final Result Performing Organization Address [facility] Co de Phone Number [facility] [address] [place] [phone] * Gross and Microscopic Level 2 (04/06/2025 11:22 AM EDT) 04/06/2025 11:2 2 AM EDT 04/06/2025 1:50 PM EDT Narrative [facility] - 04/09/2025 10:21 AM EDT ----- ------- Name: Aurora Ferrara Age/Sex: 44/F : 1980 Unit#: [id number] Attend Dr: Kashmir Freeman MD Re04/06/25 Status: [facility] Location: [facility] Disch: ----- ------- SPEC : [id number] RECD: 04/06/25 STATUS: NELI JOHN NUM: [id number] ROYCE: 04/06/[address]: Kashmir Freeman MD ENTERED: 04/06/25 SP TYPE: Surgical OTHR DR: STAN MARKS [facility] ORDERED: Gross Micro L2, Gross Micro [...] fibrofatty subcutaneous soft tissue without discrete abnormality. Records Technician sections are submitted in cassettes A1 -3. B. Received in formalin is a 1.6 cm in greatest dimension portion of fibrofatty soft tissue, sectioned and entirely submitted in cassette B1. (DTL) IHC S/NG Disclaimer NOTE: Unless otherwise stated, all tissue is formalin-fixed and paraffin-embedded. Some or all of the immunohistochemical tests reported herein may have been developed and their performance characteristics determined by [facility]. They have not been cleared [...] Aurora Ferrara Age/Sex: 44/F : 1980 Unit#: [id number] Attend Dr: Kashmir Freeman MD Re04/06/25 Status: [facility] Location: [facility] Disch: ----- ------- SPEC : [id number] RECD: 04/06/25 STATUS: NELI JOHN NUM: [id number] ROYCE: 04/06/[address] [facility] [address]: Kashmir Freeman MD ENTERED: 04/06/25 SP TYPE: Surgical OTHR DR: STAN MARKS CNM ORDERED: Gross Micro L2, Gross Micro L3 Copies To: Kashmir Freeman MD [facility] [address] [place] [phone] STAN MARKS CNM [address] [phone] ----- ------- Signed (signature on file) Katharina Duron MD 04/09/25 1021 ----- ------- END OF REPORT Generic External Data Provider LAB CYTOLOGY ORDE RABLES Final Result Performing Organization Address [facility] Co de Phone Number [facility] [address] [place] [address] [phone] * Partial Thromboplastin Time, Activated (APTT) (04/02/2025 1:27 PM EDT) [facility] Partial Thromboplastin Time 33.6 26.7 - 34.1 SEC [facility] 04/02/2025 1:27 PM EDT 04/02/2025 1:47 PM EDT Generic External Data Provider LAB BLOOD ORDERAB LES Final Result Performing Organization Address [facility] Co de Phone Number [facility] [address] [place], [place] [phone] * (ABNORMAL) Prothrombin Time-INR (04/02/2025 1:27 PM EDT) Pathologist [facility] Prothrombin Time 14.0(H) 10.9 - 12.4 SEC [facility] INTERNATIONAL NORM RATIO 1.2(H) 0.9 - 1.1 [facility] Comment:INTERNATIONAL NORMAL IZED RATIO (INR) [...] ORDERAB LES Final Result Performing Organization Address [facility] Co de Phone Number [facility] [address] [place] [phone] * Type and screen (04/02/2025 1:27 PM EDT) Blood Type ON [facility] Antibody Screen NEGATIVE [facility] 04/02/2025 1:27 PM EDT 04/02/2025 1:40 PM EDT Narrative [facility] - 04/02/2025 2:20 PM EDT WITNESSED BY [place].Spec expiration changed by JIMMY on 04/02/25Reason: PAT SSSNURSING:Call Blood Bank (ext. [phone]) to band patient on admission.Type and Screen in effect until 2300 on 04/06/25. us Generic External Data Provider LAB BLOOD BANK TE ST ORDERABLES Final Result Performing Organization Address [facility]/ZIP Co de Phone Number [facility] [address] [place] [phone] * (ABNORMAL) Comprehensive Metabolic Panel (04/02/2025 1:27 PM EDT) Sodium 141 135 - 145 mmol/L [facility] Potassium 3.5 3.3 - 5.1 mmol/L [facility] Chloride 106 96 - 108 mmol/L [facility] Carbon Dioxide 27 22 - 29 mmol/L [facility] Anion Gap 12 12 - 20 [facility] Urea Nitrogen (BUN) 17(H) 9 - 16 mg/dL [facility] Creatinine, Serum 0.51 0.5 - 1.4 mg/dL [facility] Creatinine Clr Calc Pharmacy 135.2 [facility] Comment:Provided height and weight: 163.83 cm,70.125 kg.eGFR (calculated from the MDRD study equation) and eCrCl(calculated from the Cockcroft-Gault equation) are based ondifferent parameters and may not yield comparable results.If eCrCl result is absurd, please check patient'sheight/weight. Estimated Glomerular Filt Rate >60 [facility] Comment:Chronic Kidney Disea se: Estimated GFR < 60 mL/min/1.19p6Vgdwlm Kidney Disease: Estimated GFR < 15 mL/min/1.73m2 Glucose 78 60 - 115 mg/dL [facility] Calcium 9.2 8.4 - 10.2 mg/dL [facility] Bilirubin, Total 0.7 0.0 - 1.0 mg/dL [facility] Aspartate Amino Transferase 25 5 - 31 U/L [facility] Alanine Aminotransferase 24 0 - 31 U/L [facility] Total Protein 6.9 6.5 - 8.0 g/dL [facility] Albumin Level 4.5 3.5 - 5.0 g/dL [facility] Alkaline Phosphatase 72 39 - 117 U/L [facility] 04/02/2025 1:27 PM EDT 04/02/2025 2:14 PM EDT us Generic External Data Provider LAB BLOOD ORDERAB LES Final Result [facility] [address] [place] [phone] * BI US Breast Limited Right (01/22/2025 11:06 AM EDT) Anatomical Region Laterality Modality Breast Right Ultrasound 01/22/2025 11:0 6 AM EDT Narrative 01/22/2025 11:38 AM EDT [facility] [address] [place], [place] [address] Ultrasound Report Signed Patient: Aurora Ferrara MR#: [id number] : 1980 Acct:[id number] Age/Sex: 44 / F ADM Date: 01/22/25 Loc: HO.MAMMO Attending Dr: Stan Marks CNM Ordering Physician: STAN MARKS CNM Date of Service: 01/22/25 Procedure(s): US breast RT limited Accession Number(s): [id number] cc: STAN MARKS CNM EXAMINATIONS: 1. MM [...] 01/22/25 1135 DD/ 1106 TD/TT: 01/22/25 1120 Rotating Field Assembler: Procedure Note Donotuseinterpreter, Image - 01/22/2025 [facility] [address] [place] [address] Ultrasound Report Signed Patient: Aurora Ferrara [facility]#: [id number] : 1980Acct:[id number] Age/Sex: 44 / FADM Date: 01/22/25 Loc: HO.MAMMO Attending Dr: Stan Marks CNM Ordering Physician: STAN MARKS CNM Date of Service: 01/22/25 Procedure(s): US breast RT limited Accession Number(s): [id number] cc: STAN MARKS CNM EXAMINATIONS: 1. MM [...] Alex MD 01/22/2025 11:35 AM EDT Workstation: [employer] Dictated By: Juan Carlos Alex MD Signed By: <Electronically signed by Juan Carlos Alex MD in OV> 01/22/25 1135 DD/ 1106 TD/TT: 01/22/25 1120 Rotating Field Assembler: [facility] PROCED[facility] Final R esult * HPV DNA, Low/High Risk (01/05/2025 2:20 PM EDT) HPV High Risk Negative Negative [facility] HPV Genotype 16 Negative Negative [facility] HPV Genotype 18 Negative Negative [facility] Comment:HPV testing performe d at [facility] (CLIA#[id number]), [address] [place] [address].Testing for HPV was performed using the [employer]system. The presence of HPV in the female [...] 01/06/2025 7:35 AM EDT us Stan Marks CNM LAB BLOOD ORDERABLES Delphine dillard Result [facility] [address] [place] [phone] * Pap Smear (01/05/2025 2:20 PM EDT) Swab Cervix uteri structure / Unknown 01/05/2025 2:20 PM EDT 01/06/2025 7:35 AM EDT Narrative [facility] - 01/19/2025 8:59 AM EDT ----- ------- Name: Aurora Ferrara Age/Sex: 44/F : 1980 Unit#: [id number] Attend Dr: STAN MARKS CNM Re01/05/25 Status: DEP REF Location: HO.LNP Disch: ----- ------- SPEC : [id number] RECD: 01/06/25-734 STATUS: NELI JOHN NUM: [id number] ROYCE: 01/05/25-[address] [facility] [address]: STAN MARKS CNM ENTERED: [...] and HPV testing will be performed at [facility] (CLIA #[id number]), [address] [place] [address]. Testing for HPV was performed using the [employer] system. The presence of HPV in the [...] detected. All professional services are performed by [facility] ([address] [place] [address]; ; CLIA #[id number]). The PAP Test is a screening procedure with the inherent possibility of both false negative and false positive results. Results should be interpreted in the context of historic and current clinical findings. Reliability of the PAP Test is enhanced by performing the test on a regular repetitive basis. CONTINUED ON NEXT PAGE ----- ------- Name: Aurora Ferrara Age/Sex: 44/F : 1980 Unit#: [id number] Attend Dr: STAN MARKS CNM Re01/05/25 Status: DEP REF Location: HO.LNP Disch: ----- ------- SPEC : [id number] RECD: 01/06/25 STATUS: NELI JOHN NUM: [id number] ROYCE: 01/05/25-[address] [facility] [address]: STAN MARKS CNM ENTERED: 01/06/25 SP TYPE: Pap Kamini HURST DR: ORDERED: Pap Smear ----- ------- Signed (signature on file) KYRA Edwards (ASCP) 01/19/25 0859 ----- ------- END OF REPORT Stan Marks CNM LAB CYTOLOGY ORDERABLES F inal Result [facility] [address] [place] [phone] * Lipid Panel, Standard (11/13/2024 9:53 AM EDT) Triglycerides 46 <150 mg/dL [facility] Comment:Desirable Triglyceri de: less than 150 mg/dLBorderline High Triglyceride 150-199 mg/dLHigh Triglyceride: 200-499 mg/dLVery High Triglyceride: greater than or equal to 5OO mg/dL Cholesterol 172 <200 mg/dL [facility] Comment:Desirable Cholestero l: less than 200 mg/dLBorderline High Cholesterol: 200-239 mg/dLHigh Cholesterol: greater than 239 mg/dL LDL Cholesterol Calculated 94 <100 mg/dL [facility] Comment:Desirable LDL: less than 100 mg/dLNear Optimal/Above Optimal LDL: 110- 129 mg/dLBorderline High LDL: 130-159 mg/dLHigh LDL: 160-189 mg/dLVery High LDL: greater than or equal to 190 mg/dL HDL Cholesterol 69 >40 mg/dL [facility] Comment:Desirable HDL: great er than 40 mg/dL Note: This HDL assay may give artificially low results in patients with liver disease. 11/13/2024 9:53 AM EDT 11/13/2024 9:53 AM EDT us Generic External Data Provider LAB BLOOD ORDERAB LES Final Result Performing Organization Address [facility] Co de Phone Number [facility] [address] [place] [phone] * Hepatitis C Antibody with Reflex to HCV, RNA, Quantitative, Real-Time PCR (04/09/2024 12:15 PM EDT) Hepatitis C Antibody Nonreactive Nonreactive [facility] Comment:Antibodies to HCV no t detected; does not exclude early acuteHCV infection. Blood Venous blood specimen / Unknown 04/09/2024 12:15 PM EDT 04/09/2024 1:17 PM EDT us Magaly Maldonado MD LAB BLOOD ORDERABLES Final Result Performing Organization Address [facility] Co de Phone Number [facility] [address] [place] [phone] * HIV-1/2 Antigen and Antibodies, Fourth Generation, with Reflexes (04/09/2024 12:15 PM EDT) [facility] Signature HIV AB/AG Nonreactive Nonreactive [facility] Comment:HIV-1 p24 Ag and/or HIV-1/HIV-2 Ab not detected.A test result that is nonreactive does not exclude thepossibility of exposure to or infection with HIV-1 and/orHIV-2. Nonreactive results in this assay for individualswith prior exposure to HIV-1 and/or HIV-2 may be due toantigen and antibody levels that are below the limit ofdetection of this assay.The [employer] HIV Ag/Ab Combo assay result andsupplemental assay results should be interpreted inconjunction with the patient's clinical presentation,history and other laboratory results. If the results areinconsistent with clinical evidence, additional testing issuggested to confirm the result. Blood Venous blood specimen / Unknown 04/09/2024 12:15 PM EDT 04/09/2024 1:17 PM EDT us Magaly Maldonado MD LAB BLOOD ORDERABLES Final Result Performing Organization Address [facility] Co de Phone Number [facility] [address] [place] [phone] from Last 3 Months or Most Recently Relevant to Health Maintenance Insurance [address] [address] Relationship Specialty Start Date End Date Magaly Mcrae MD [address] [place] [phone] PCP - General Family Medicine 02/19/18 Anne Marie Reza Foreign Language ProfessorRefueling Ramp Supervisor 04/14/25
--- OUTSIDE RECORDS SUMMARY | 2025-05-12 16:56 | XMS_ITS | Encounter Summary ---
Author Organization [employer] Address [address] [facility] 7 [place] [address] Care Team Providers Care Feed Project Engineer Name Role Phone Magaly Mcrae MD Primary Care Provide r Reason for Visit * Reason Onset Date Comments Referral 04/02/2025 Encounter Details Date Type Department Care Team ([facility] st Contact Info) Description 04/02/[address] [facility] [address] [place], [place] [phone] Magaly Mcrae MD [address], [place] [phone] Referral Social History Tobacco Use Types Packs/Day [...] EDT Please place derm [facility], original referral for eczema however appointment [...] is scheduled for 01/01/2026. Contact pt at [phone] documented in this encounter Plan of Treatment Upcoming Encounters Date Type Department Care Team (Late st Contact Info) Description 06/23/2025 3:30 PM EST Office Visit [facility] [address] [place] [address] Magaly Mcrae MD [address] [place], [place] [phone] documented as of this encounter Visit Diagnoses Not on filedocumented in this encounter Additional Health Concerns Assessment Noted Time PHQ-9 Depression Total Score: 15 025 11:32 AM EDT documented as of this encounter Care Teams Feed Project Engineer Relationship Specialty Start Date End Date Magaly Mcrae MD [address] [place] [phone] PCP - General Family Medicine 02/19/18 Anne Marie Reza Knit Goods WasherSupervisor Garage 04/14/25 documented as of this encounter
--- OUTSIDE RECORDS SUMMARY | 2025-05-12 16:56 | XMS_ITS | Clinical Summary ---
Author Organization [address] [facility] Address [address] [place] [address] Phone Care Team Providers Care Rn Or Lpn Name Role Phone Thu Tam MD Primary Care Provider + [phone] Allergies No known active allergies Medications DICLOFENAC [...] topic Insurance MEDICAID - [place] Care Teams Rn Or Lpn Relationship Specialty Start Date End Date Thu Tam MD [address] [place] [phone] PCP - General Internal Medicine 03/13/24
== END 2025-05-12 16:08 | disposition home or self-care (01) ==
LOC: HO.HBS 14:03
PROVIDERS: PCP Advanced Practice Midwife; Visit Provider Nurse Practitioner
DX: L98.7 Excessive and redundant skin and subcutaneous tissue (principal); Z98.890 Other specified postprocedural states
CPT/HCPCS: 99024; 99499

== ENCOUNTER → 2025-05-12 14:02 | Outpatient (BNVA) | payer MEDICAID, SELFPAY | PROVIDERS: PCP Advanced Practice Midwife; Visit Provider Nurse Practitioner | DX: Z48.815 Encounter for surgical aftercare following surgery on the digestive system (principal); Z98.890 Other specified postprocedural states; Z98.84 Bariatric surgery status | CPT/HCPCS: 99212 ==

== ENCOUNTER 2025-05-19 12:07 | Outpatient (AMB) | payer MEDICAID, SELFPAY ==
--- NOTE | 2025-05-19 12:16 | MHC.OFFVISWM ---
VS Expanded 05/19/25 12:35 BP 95/56 L Blood Pressure Location Rt brachial Blood Pressure Position Sitting Pulse 63 Pulse Source Pulse Oximeter Temp 95.6 F L Temperature Source Temporal Artery Scan Pulse Oximetry 98 Oxygen Delivery Method Room Air Height 5 ft 4.5 in Weight 142 lb 9.6 oz BMI 24.1 Body Fat % 29.3 Body Fat Mass 41.6 Fat Free Mass 100.8 Visceral Fat Rating 5.0 Body Water % 0.5 Body Water Mass 71.8 Muscle Mass/Score 95.6 Basal Metabolic Rate/Score 1,360 Intake Visit Reasons: OV Panniculectomy 04/06/25 Air Conditioning Mechanic Required: Yes Air Conditioning Mechanic Services: Air Conditioning Mechanic Present Air Conditioning Mechanic Name: Shamika [id number] Information Interpreted: clinical only Allergies No Known Allergies Allergy (Verified 05/10/25 12:03) Medication List - Last Reconciled 05/19/25 by Denise Everett CNP bupropion HCl SR 200 mg PO QAM cholecalciferol (vitamin D3) (Vitamin D3) 25 mcg PO DAILY docusate sodium (Colace) 100 mg PO DAILY fluticasone propionate 50 mcg/actuation 1 spray intranasal BID hydroxyzine HCl 25 mg PO BID PRN levofloxacin 500 mg PO DAILY uavrpwbafbir-wym-xbht-FA-vit K 45 mg iron- 800 mcg-120 mcg (Bariatric Multivitamins) 1 cap PO .daily in evening ondansetron 4 mg PO Q12H sumatriptan succinate 25 mg PO QID PRN trazodone 25 - 50 mg PO BEDTIME PRN HPI Comments Details: 44 year old woman s/p panniculectomy 04/06/2025. she is also s/p LSG with diaphragmatic hernia repair 12/28/2020. On 04/28/2025, patient presented to office with reports of +odor x4 days and green drain output x1 day. She denied fevers at home but feels street car inspector abdomen. Thought pain had increased in abdomen. Fluid from her drain was sent to the lab, and she was referred to the ER for CT abdomen and blood work. Lab and imaging results below. ABX was changed from Keflex BID to Doxycycline BID and Levofloxacin QD. On 04/30/2025, she presented to office for recheck of surgical site and flushing of the drain. She was flushed with a total of 20cc 50% saline/50% hydrogen peroxide. On 05/03/2025, she presented for recheck and repeat flushing. She reported drain output was 10cc each day over the weekend. She denied any odor or green colored output since flushing. Increased abd pain/discomfort in this area, to the point that she was given prn Oxycodone, which was helpful. Denied constitutional symptoms or feeling ill/feverish. On 05/05/2025, she presented for recheck and repeat flushing. She reported drain output 20cc the other day, and 10cc that morning. No green, no odor. Denied constitutional symptoms. Still taking ABX as prescribed. No pain. On 05/10/2025, her drain outputs were 1-5mL per day on her output record. No green, no odor. Denied constitutional symptoms. Still taking ABX as prescribed. No pain. Fluid from her SHARYN drain was sent for gram stain and cultures. At last visit on 05/12/2025, she was doing well. Still had < 5mL output per day. No odor or infectious symptoms. Still taking ABX. Eager to get drain removed. Also wanted to advance her diet since she was still on liquids only. She was allowed to resume normal post-op panniculectomy diet previously given by Dr. Tan. She was educated to change her SHARYN drain from bulb suction to gravity. Today, she is doing well. Some intermittent nausea here and there. Has not emptied drain x1 week and it is to gravity per instructions. Still taking levofloxacin and doxycycline as prescribed. Following meal plan, as below. Current Meal Plan: Isopure protein shake 1/2 scoop per 8oz - 3x per day 1 pure protein bar 1 meal - chicken, veggies [facility] Medical History Postgastrectomy malabsorption GERD (gastroesophageal reflux disease) Depression Hx of bipolar disorder Panic attack Surgical History History of sleeve gastrectomy History of endometrial ablation H/O parathyroidectomy History of esophagogastroduodenoscopy (EGD) History of tonsillectomy and adenoidectomy Hx of tubal ligation Family History Mother Heart disease Arthritis Father Liver disease Herniated disc Brother No problems noted. Brother No problems noted. Brother No problems noted. Sister Diabetes Sister Migraine Sister HIV disease Sister No problems noted. Sister No problems noted. Daughter Asthma Son No problems noted. Paternal Aunt Breast cancer Social History Household Members: Family Housing: Apartment Are you a primary career and transition teacher to a significant other at home: No Do you presently have visiting nurse or other home services: No 75 years or older and lives alone: No Alcohol intake: never Patient Tobacco Use Status: Former Tobacco user Tobacco use type: Cigarette Substance Use Type: Marijuana service: No Current occupational status: unemployed Female Reproductive History Menstrual Age of Menarche: 13 Physical Exam Const General: cooperative, healthy appearing, comfortable and no acute distress Orientation/consciousness: patient oriented x3 GI Other: abd soft non tender non distended. panniculectomy incision and umbilicus are healing well without erythema or open areas. Drainage in bulb is 10cc dark liquid. no sediment, does not appear to be purulent. No green noted. No odor. New DSD applied. Neuro General: patient oriented x3 Results Reviewed Results Reviewed: Results Reviewed: CT abdomen/pelvis 04/28/2025 reports: IMPRESSION: 1. No acute findings in the abdomen or pelvis. 2. Subcutaneous stranding in the anterior subcutaneous abdominal fat related to recent panniculectomy. A surgical drain is in place in the inferior anterior abdominal wall. Just superior and right lateral of the umbilicus, just anterior to the rectus sheath, there is a 6 mm nonenhancing fluid collection which may represent a seroma. This does not appear definitively drainable. Fluid collected from SHARYN drain 04/28/2025: Creatinine 1.3 Albumin 1 Glucose < 2 Amylase 38 Bilirubin 2.7 Blood draw 04/28/2025: WBC 4.9 Cultures as of 05/03/2025: Organism 1 Pseudomonas aeruginosa Quantity 4+ Organism 2 Enterobacter cloacae complex Quantity 4+ Organism 3 Methicillin Res Staph Aureus Quantity 4+ Susceptible to tetracycline and ciprofloxacin Fluid collected from SHARYN drain 05/10/2025: Gram stain Final 05/10/25-1356 Gram stain results: No polys 4+ Gram-negative rods Routine Culture Preliminary 05/16/25-1532 Organism 1 Pseudomonas aeruginosa Quantity 3+ Organism 2 Gram negative noe Quantity 4+ P aerugino M.I.C. RX --------- --- Cefepime 0.5 S Ciprofloxacin >=4 R Gentamicin <=1 S Meropenem 1 S Piperacillin/Tazobactam <=4 S Assessment & Plan Assessment & Plan (1) S/P panniculectomy: Code(s): Z98.890 - Other specified postprocedural states Category: Surgical Plan: Plan: - patient seen with Dr. Tan, case discussed. - SHARYN was emptied for about 10mL and removed in office today - DSD applied. Continue DSDs, does not need xeroform. She may shower, but no submerging in water. - She may start light exercise such as walking. No abdominal exercises or heavy lifting x3 months postop. She may drive tomorrow. - ABX: continue levofloxacin and start Augmentin. Stop doxycycline. - Refill ondansetron prn N/V - Continue meal plan - Will add yogurt to promote healthy gut bacteria (Activia brand, zero sugar, 3G protein) - Call office for any concerns/questions, S&S worsening infection Follow up: 1 week Medications: New amoxicillin-pot clavulanate 875-125 mg 1 tab PO BID 42 tabs 0RF 21 days Changed From ondansetron Use it only if you have nausea 4 mg PO Q12H 20 tabs 0RF nausea and vomiting R11.0 - Nausea To ondansetron Use it only if you have nausea 4 mg PO Q8-12H PRN 30 tabs 0RF nausea and vomiting R11.0 - Nausea
[2025-05-19 12:35] VITALS: BP 95/56; PULSE 63; TEMP 35.3; O2SAT 98; BMI 24.1
--- OUTSIDE RECORDS SUMMARY | 2025-05-19 18:50 | XMS_ITS | Encounter Summary ---
Author Organization [employer] Address [address] [facility] [address] [place] [address] Care Team Providers Care Senior Client Advisor Name Role Phone Magaly Mcrae MD Primary Care Provide r Encounter Details Date Type Department Care Team ([facility] st Contact Info) Description 02/13/2024 Telephone [facility] [address] [place], [place] [phone] Magaly Mcrae MD [address] [place], [place] [phone] Social History Tobacco Use Types Packs/Day Years [...] 06/23/2025 3:30 PM EST Office Visit [facility] [address] [place] [phone] Magaly Mcrae MD [address] [place] [phone] documented as of this encounter Visit Diagnoses Not on filedocumented in this encounter Additional Health Concerns Assessment Noted Time PHQ-9 Depression Total Score: 11 023 3:07 PM EDT documented as of this encounter Care Teams Senior Client Advisor Relationship Specialty Start Date End Date Magaly Mcrae MD [address] [place] [phone] PCP - General Family Medicine 02/19/18 Anne Marie Reza Director Of Student AidModel Maker Scale 04/14/25 documented as of this encounter
--- OUTSIDE RECORDS SUMMARY | 2025-05-19 18:51 | XMS_ITS | Encounter Summary ---
Author Organization [facility] Address [address] [place] [address] Care Team Providers Care Grease Press Helper Name Role Phone Thu Tam MD Primary Care Provider + [phone] Encounter Details Date Type Department Care Team (Late st Contact Info) Description 02/04/2025 Lab Requisition [facility] [address] [place] [phone] Bettina Sanford MD [address] [facility] [address] [place] [phone] Abnormal uterine and vaginal bleeding, unspecified Social [...] endometrium identified 02/05/2025 1:27 PM EDT [facility] at 1327 EDT Clinical Information [...] Result [facility] [address] [place] [address], documented in this encounter Visit Diagnoses Diagnosis Abnormal uterine and vaginal bleeding, unspecified documented in this encounter Care Teams Grease Press Helper Relationship Specialty Start Date End Date Thu Tam MD [address] [place] [phone] PCP - General Internal Medicine 03/13/24 documented as of this encounter
--- OUTSIDE RECORDS SUMMARY | 2025-05-19 18:51 | XMS_ITS | Clinical Summary ---
Author Organization [address] [facility] Address [address] [place] [address] Phone Care Team Providers Care Truck Leasing Manager Name Role Phone Thu Tam MD Primary Care Provider + [phone] Allergies No known active allergies Medications DICLOFENAC [...] topic Insurance MEDICAID - [place] Care Teams Truck Leasing Manager Relationship Specialty Start Date End Date Thu Tam MD [address] [place] [phone] PCP - General Internal Medicine 03/13/24
--- OUTSIDE RECORDS SUMMARY | 2025-05-19 18:51 | XMS_ITS | Clinical Summary ---
Author Organization [employer] Address [address] [facility] [address] [place] [address] Care Team Providers Care Associate Music Professor Name Role Phone Magaly Mcrae MD Primary [...] ORAL AL ACOSTARSE 30 tablet 3 Active venlafaxine XR (Effexor XR) 37.5 MG 24 hr capsuleIndicatio ns: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 Take 2 capsules (75 mg) by mouth Once per day. Do not crush or chew. 60 capsule 1 5 10/24/19 26 Active SUMAtriptan (Imitrex) 25 MG tabletIndication s:Migraine aura without headache TAKE 1 TABLET BY MOUTH 1 TIME IF NEEDED FOR MIGRAINE. MAY REPEAT DOSE ONCE IN 2 HOURS IF NO RELIEF. DO NOT EXCEED 2 DOSES IN 24 HOURS. 9 tablet 1 5 Active betamethasone valerate (Valisone) 0.1 % creamIndications :Irritant contact dermatitis, unspecified trigger Apply topically if needed in the morning and at bedtime (dryness). 45 g 2 5 Active fluticasone (Flonase) 50 MCG/ACT nasal sprayIndications :Seasonal allergic rhinitis, unspecified trigger ADMINISTER 1-2 SPRAYS INTO EACH NOSTRIL ONCE PER DAY. SHAKE GENTLY. BEFORE FIRST USE, PRIME PUMP. AFTER USE, CLEAN TIP AND REPLACE CAP. 48 mL 5 04/19/20 26 Active Active Problems Problem Noted Date Diagnosed [...] Plan (02/07/2024 1:00 PM EDT): Refer to Foundry Engineer. Chronic pain of left knee 10/24/2022 Assessment [...] seek help PLAN: 1. Follow up with [facility]: Not recommended for follow-up 2. Patient goal is to obtain her meds and become stable. 3. Behavioral Recommendations a. Ind. Therapy b. Med. Management c. Coping skills provided. Assessment & Plan (10/25/2022 4:25 PM EDT): Counseling done BN referral I will start her again on Wellbutrin 150mg daily Hypercalcemia 04/10/2012 Encounters Date Type Department Care Team Description 05/13/2025 Telephone [facility] [address] [place] [phone] Magaly Mcrae MD Referral 05/10/2025 Orders Only GENERIC EXTERNAL DATA DEPARTMENT Provider, Generic External Data 04/29/2025 Results Follow-Up [address] [address] Abdomen Pelvis w/ Contrast, CBC auto differential, Hepatic Function Panel, Additional followed-up results: 13 04/28/2025 Orders Only GENERIC EXTERNAL DATA DEPARTMENT Provider, Generic External Data 04/17/[address] [address] Magaly Mcrae MD Seasonal allergic rhinitis, unspecified trigger 04/14/2025 Telephone [facility] [address] [place], [place] [phone] Magaly Mcrae MD Care Coordination (ICP Care Plan) 04/13/2025 3:15 PM EST Office Visit [facility] [address] [place] [address] Magaly Mcrae MD Encounter for preventive care (Primary Dx); Dietary counseling; Exercise counseling; Post-surgical hypoparathyroidism; Irritant contact dermatitis, unspecified trigger 04/13/2025 Travel 04/12/[address] [address] Magaly Mcrae MD Chart Prep 04/06/2025 Orders Only GENERIC EXTERNAL DATA DEPARTMENT Provider, Generic External Data 04/06/2025 Patient Outreach [facility] [address] [place], [place] [phone] Magaly Mcrae MD Pre-visit Planning ([facility] unable to reach [facility]) 04/05/2025 Telephone [facility] [address] [place], [place] [phone] Magaly Mcrae MD tammy recall 04/05/2025 Results Follow-Up [address] [address] Stan Marks, CNM Prothrombin Time-INR, Partial Thromboplastin Time, Activated (APTT), CBC auto differential, Additional followed-up results: 2 04/02/2025 Orders Only [address] [phone] Magaly Mcrae MD Eczema, unspecified type (Primary Dx) 04/02/[address] [phone] Magaly Mcrae MD Referral from Last 3 Months Immunizations Immunization Administration [...] Office Visit [facility] [address] [place], [place] [phone] Magaly Mcrae MD [address] [place] [address] Health Maintenance Due Date Last Done Comments [...] 05/10/2025 12:45 PM EST Comment:Abdom Fld Narrative [facility] - 05/16/2025 3:32 PM EST Abdominal swab Gram stain results: No polys 4+ Gram-negative rods Abdominal swab Pseudomonas aeruginosa Quant Org ID 3+ Gram negative noe Quant Org ID 4+ Pseudomonas aeruginosa: Cefepime 0.5(S) Pseudomonas aeruginosa: Ciprofloxacin >=4(R) Pseudomonas aeruginosa: Gentamicin <=1(S) Pseudomonas aeruginosa: Meropenem 1(S) Pseudomonas aeruginosa: Piperacillin/Tazobactam <=4(S) Specimen Source: Abdominal Fluid us Generic External Data Provider HISTORICAL/NON OR DERABLE LABS Final Result Performing Organization Address City/State/[place] Co de Phone Number [facility] [address] [place] [phone] * CT Abdomen Pelvis w/ Contrast (04/28/2025 4:35 PM EST) Anatomical Region Laterality Modality Body, Pelvis, Abdomen Computed T omography 04/28/2025 4:35 PM EST Narrative 04/28/2025 5:04 PM EST [address] [address] [address] Scan Report Signed Patient: Aurora Ferrara MR#: [id number] : 1980 Acct:[id number] Age/Sex: 44 / F ADM Date: 04/28/25 Loc: HO.ED Attending Dr: Ordering Physician: Luisa Joyner Date of Service: 04/28/25 Procedure(s): CT abdomen pelvis w IV con Accession Number(s): [id number] cc: Luisa Joyner; STAN MARKS [facility] Report Number: [id number]: Total DLP = 475.00 mGy-cm Reason for [...] by: Todd Nguyễn MD 04/28/2025 05:02 PM [facility] Dictated By: Todd Nguyễn MD Signed By: <Electronically signed by Todd Nguyễn MD in OV> 04/28/25 1702 DD/ 1635 TD/TT: 04/28/25 1647 Petroleum Inspector Supervisor: Procedure Note Donotuseinterpreter, Image - 04/28/[address] [address] [address] Scan Report Signed Patient: Aurora Ferrara MMR#: [id number] : 1980Acct:[id number] Age/Sex: 44 / FADM Date: 04/28/25 Loc: .ED Attending Dr: Ordering Physician: Luisa Joyner Date of Service: 04/28/25 Procedure(s): CT abdomen pelvis w IV con Accession Number(s): [id number] cc: Luisa Joyner; STAN MARKS [facility] Report Number: [id number]: Total DLP = 475.00 mGy-cm Reason for [...] 04/28/25 1702 DD/ 1635 TD/TT: 04/28/25 1647 Petroleum Inspector Supervisor: [facility] External Provider IMG CT PROCEDURES Final Result * Lactic Acid (04/28/2025 12:47 PM EST) Lactic Acid 1.3 0.5 - 2.0 mmol/L [facility] 04/28/2025 12:4 7 PM EST 04/28/2025 12:51 PM EST Generic External Data Provider LAB BLOOD ORDERAB LES Final Result [facility] [address] [place] [phone] * Blood Culture (First) (04/28/2025 12:36 PM EST) Blood Venous blood specimen / Unknown 04/28/2025 12:36 PM EST 04/28/2025 12:40 PM EST Comment:Blood Narrative [facility] - 05/03/2025 2:41 PM EST Blood Culture (First) No growth after 5 days. Specimen Source: Blood Generic External Data Provider LAB MICROBIOLOGY - GENERAL ORDERABLES Final Result Performing Organization Address [facility]/ZIP Co de Phone Number [facility] [address] [place] [phone] * Blood Culture (Second) (04/28/2025 12:36 PM EST) Blood Venous blood specimen / Unknown 04/28/2025 12:36 PM EST 04/28/2025 12:40 PM EST Comment:Blood Narrative [facility] - 05/03/2025 2:41 PM EST Blood Culture (Second) No growth after 5 days. Specimen Source: Blood Generic External Data Provider LAB MICROBIOLOGY - GENERAL ORDERABLES Final Result Performing Organization Address [facility]/[place] Co de Phone Number [facility] [address] [place] [phone] * CBC auto differential (04/28/2025 12:36 PM EST) Only the most recent of2 resultswithin the time period is included. White Blood Count 4.9 4.8 - 10.8 X10*3/uL [facility] Red Blood Count 4.34 4.20 - 5.50 X10*6/uL [facility] Hemoglobin 13.5 12.0 - 16.0 g/dl [facility] Hematocrit 39.7 37.0 - 47.0 % [facility] Mean Corpuscular Volume 91.5 80.0 - 98.0 fL [facility] Mean Corpuscular Hemoglobin 31.1 27.0 - 33.0 pg [facility] Mean Corpuscular HGB Conc 34.0 31.0 - 35.0 g/dl [facility] Red Cell Distribution Width 11.3 11.0 - 16.0 % [facility] Platelet Count 280 160 - 400 X10*3/uL [facility] Mean Platelet Volume 9.5 9.4 - 12.3 fL [facility] Neutrophils Percent Auto 64.6 45 - 73 % [facility] Imm Gran Pct Auto 0.2 0.0 - 0.4 % [facility] Lymphocytes Percent Auto 25.9 20 - 40 % [facility] Monocytes Percent Auto 7.9 2 - 11 % [facility] Eosinophils Percent Auto 1.0 0 - 4 % [facility] Basophils Percent Auto 0.4 0 - 2 % [facility] NRBC Pct Auto 0.0 0.0 - 0.2 /100WBC [facility] Neutrophils Absolute Auto 3.2 2.0 - 8.3 x10*3/uL [facility] Imm Gran Abs Auto 0.01 0.00 - 0.03 X10*3/uL [facility] Lymphocytes Absolute Auto 1.3 1.2 - 4.9 X10*3/uL [facility] Monocytes Absolute Auto 0.4 0.1 - 1.2 X10*3/uL [facility] Eosinophils Absolute Auto 0.1 0.0 - 0.4 X10*3/uL [facility] Basophils Absolute Auto 0.0 0.0 - 0.2 X10*3/uL [facility] NRBC Abs Auto 0.000 0.0 - 0.012 X10*3/uL [facility] 04/28/2025 12:3 6 PM EST 04/28/2025 12:40 PM EST us Generic External Data Provider LAB BLOOD ORDERAB LES Final Result [facility] [address] [place] [phone] * hCG, Total, Quantitative (04/28/2025 12:36 PM EST) HCG Quantitative 4 mIU/mL [facility] Comment:Weeks post LMP Appro ximate hCG(Last Menstrual Period) Range (mIU/ml)3 - 4 weeks 9 - 1304 - 5 weeks 75 - 2,6005 - 6 weeks 850 - 20,8006 - 7 weeks 4000 - 100,2007 - 12 weeks 11,500 - 289,75480 - 16 weeks 18,300 - 137,74151 - 29 weeks (2nd trimester) 1,400 - 53,63038 - 41 weeks (3rd trimester) 940 - [...] Organization Address [facility] de Phone Number [facility] [address] [place] [phone] * Magnesium (04/28/2025 12:36 PM EST) Magnesium 2.2 1.6 - 2.6 mg/dL [facility] 04/28/2025 12:3 6 PM EST 04/28/2025 12:40 PM EST Generic External Data Provider LAB BLOOD ORDERAB LES Final Result Performing Organization Address [facility]/[place] Co de Phone Number [facility] [address] [place] [phone] * Lipase (04/28/2025 12:36 PM EST) Lipase 28 8 - 78 U/L [facility] 04/28/2025 12:3 6 PM EST 04/28/2025 12:40 PM EST Generic External Data Provider LAB BLOOD ORDERAB LES Final Result Performing Organization Address [facility]/[place] Co de Phone Number [facility] [address] [place] [phone] * (ABNORMAL) Hepatic Function Panel (04/28/2025 12:36 PM EST) Bilirubin, Total 0.7 0.0 - 1.0 mg/dL [facility] Bilirubin, Direct 0.2 0.0 - 0.5 mg/dL [facility] Aspartate Amino Transferase 29 5 - 31 U/L [facility] Alanine Aminotransferase 48(H) 0 - 31 U/L [facility] Total Protein 7.7 6.5 - 8.0 g/dL [facility] Albumin Level 4.8 3.5 - 5.0 g/dL [facility] Alkaline Phosphatase 84 39 - 117 U/L [facility] 04/28/2025 12:3 6 PM EST 04/28/2025 12:40 PM EST Generic External Data Provider LAB BLOOD ORDERAB LES Final Result Performing Organization Address [facility]/[place] Co de Phone Number [facility] [address] [place] [phone] * (ABNORMAL) Basic Metabolic Panel (04/28/2025 12:36 PM EST) Pathologist [facility] Sodium 139 135 - 145 mmol/L [facility] Potassium 3.8 3.3 - 5.1 mmol/L [facility] Chloride 104 96 - 108 mmol/L [facility] Carbon Dioxide 28 22 - 29 mmol/L [facility] Anion Gap 11(L) 12 - 20 [facility] Urea Nitrogen (BUN) 16 9 - 16 mg/dL [facility] Creatinine, Serum 0.53 0.5 - 1.4 mg/dL [facility] Creatinine Clr Calc Pharmacy 121.8 [facility] Comment:Provided height and weight: 165.1 cm,67.132 kg.eGFR (calculated from the MDRD study equation) and eCrCl(calculated from the Cockcroft-Gault equation) are based ondifferent parameters and may not yield comparable results.If eCrCl result is absurd, please check patient'sheight/weight. Estimated Glomerular Filt Rate >60 [facility] Comment:Chronic Kidney Disea se: Estimated GFR < 60 mL/min/1.71m8Dblqns Kidney Disease: Estimated GFR < 15 mL/min/1.73m2 Glucose 83 60 - 115 mg/dL [facility] Calcium 9.7 8.4 - 10.2 mg/dL [facility] 04/28/2025 12:3 6 PM EST 04/28/2025 12:40 PM EST Generic External Data Provider LAB BLOOD ORDERAB LES Final Result Performing Organization Address [facility]/[place] Co de Phone Number [facility] [address] [place] [phone] * Amylase, Peritoneal Fluid (04/28/2025 10:28 AM EST) Amylase, Peritoneal Fluid 38 [facility] Comment:Units: U/LThe refere nce range and other method performancespecifications have not been established for this bodyfluid. The test result must be integrated into the clinicalcontext for interpretation.Testing performed at: [facility] [address] [place] [address] 04/28/2025 10:2 8 AM EST 04/28/2025 12:13 PM EST Generic External Data Provider LAB BODY FLUIDS A ND STOOLS ORDERABLES Final Result Performing Organization Address [facility]/ZIP Co de Phone Number [facility] [address] [place] [phone] * Glucose Peritoneal Fluid (04/28/2025 10:28 AM EST) Glucose, Peritoneal Fluid <2 [facility] Comment:Units: MG/DLThe refe rence range and other method performancespecifications have not been established for this bodyfluid. The test result must be integrated into the clinicalcontext for interpretation.Testing performed at: [facility] [address] [place] [address] 04/28/2025 10:2 8 AM EST 04/28/2025 12:13 PM EST us Generic External Data Provider LAB BODY FLUIDS A ND STOOLS ORDERABLES Final Result Performing Organization Address [facility] de Phone Number [facility] [address] [place] [phone] * Albumin Peritoneal Fluid (04/28/2025 10:28 AM EST) Albumin Peritoneal Fluid 1.0 [facility] Comment:Units: GM/DLThe refe rence range and other method performancespecifications have not been established for this bodyfluid. The test result must be integrated into the clinicalcontext for interpretation.Testing performed at: [facility] [address] [place] [address] 04/28/2025 10:2 8 AM EST 04/28/2025 12:13 PM EST us Generic External Data Provider LAB BODY FLUIDS A ND STOOLS ORDERABLES Final Result Performing Organization Address [facility] de Phone Number [facility] [address] [place] [phone] * Other Reference Test - Misc (04/28/2025 10:28 AM EST) Other Ref Test Misc SEE NOTE [facility] Comment:See scanned report i n EMR 04/28/2025 10:2 8 AM EST 04/28/2025 12:13 PM EST Narrative [facility] - 04/29/2025 7:27 AM EST bilirubin level for intraabdominal fluid Generic External Data Provider LAB BLOOD ORDERAB LES Final Result Performing Organization Address [facility]/[place] Co de Phone Number [facility] [address] [place] [address] [place] [phone] * Creatinine, body fluid (04/28/2025 10:28 AM EST) Creatinine Peritoneal Fluid 1.3 [facility] Comment:Units: MG/DLThe refe rence range and other method performancespecifications have not been established for this bodyfluid. The test result must be integrated into the clinicalcontext for interpretation.Testing performed at: [facility] [address] [place] [address] 04/28/2025 10:2 8 AM EST 04/28/2025 12:13 PM EST us Generic External Data Provider LAB BODY FLUIDS A ND STOOLS ORDERABLES Final Result [facility] [address] [place] [phone] * Gross and Microscopic Level 2 (04/06/2025 11:22 AM EDT) 04/06/2025 11:2 2 AM EDT 04/06/2025 1:50 PM EDT Narrative [facility] - 04/09/2025 10:21 AM EDT ----- ------- Name: Aurora Ferrara Age/Sex: 44/F : 1980 Unit#: [id number] Attend Dr: Kashmir Freeman MD Re04/06/25 Status: [facility] Location: [facility] Disch: ----- ------- SPEC : [id number] RECD: 04/06/25 STATUS: NELI JOHN NUM: [id number] ROYCE: 04/06/[address] [facility] [address]: Kashmir Freeman MD ENTERED: 04/06/25 SP [...] fibrofatty subcutaneous soft tissue without discrete abnormality. Operations Program Manager sections are submitted in cassettes A1 -3. B. Received in formalin is a 1.6 cm in greatest dimension portion of fibrofatty soft tissue, sectioned and entirely submitted in cassette B1. (DTL) IHC S/NG Disclaimer NOTE: Unless otherwise stated, all tissue is formalin-fixed and paraffin-embedded. Some or all of the immunohistochemical tests reported herein may have been developed and their performance characteristics determined by [facility]. They have not been cleared [...] Aurora Ferrara Age/Sex: 44/F : 1980 Unit#: [id number] Attend Dr: Kashmir Freeman MD Re04/06/25 Status: [facility] Location: [facility] Disch: ----- ------- SPEC : [id number] RECD: 04/06/25 STATUS: NELI JOHN NUM: [id number] ROYCE: 04/06/[address]: Kashmir Freeman MD ENTERED: 04/06/25 SP TYPE: Surgical OTHR DR: STAN MARKS CNM ORDERED: Gross Micro L2, Gross Micro L3 Copies To: Kashmir Freeman MD [facility] [address] [place] [phone] STAN MARKS CNM [address] [phone] ----- ------- Signed (signature on file) Katharina Duron MD 04/09/25 1021 ----- ------- END OF REPORT Generic External Data Provider LAB CYTOLOGY ORDE RABLES Final Result Performing Organization Address [facility]/[place] Co de Phone Number [facility] [address] [place] [phone] * Partial Thromboplastin Time, Activated (APTT) (04/02/2025 1:27 PM EDT) Partial Thromboplastin Time 33.6 26.7 - 34.1 SEC [facility] 04/02/2025 1:27 PM EDT 04/02/2025 1:47 PM EDT House Party External Data Provider LAB BLOOD ORDERAB LES Final Result Performing Organization Address [facility] de Phone Number [facility] [address] [place] [address] [phone] * (ABNORMAL) Prothrombin Time-INR (04/02/2025 1:27 PM EDT) Prothrombin Time 14.0(H) 10.9 - 12.4 SEC [facility] INTERNATIONAL NORM RATIO 1.2(H) 0.9 - 1.1 [facility] Comment:INTERNATIONAL NORMAL IZED RATIO (INR) [...] Organization Address [facility] de Phone Number [facility] [address] [place] [address] [phone] * Type and screen (04/02/2025 1:27 PM EDT) Blood Type ON [facility] Antibody Screen NEGATIVE [facility] 04/02/2025 1:27 PM EDT 04/02/2025 1:40 PM EDT Narrative [facility] - 04/02/2025 2:20 PM EDT WITNESSED BY [place].Spec expiration changed by JIMMY on 04/02/25Reason: ANANTH SSSNURSING:Call Blood Bank (ext. [phone]) to band patient on admission.Type and Screen in effect until 2300 on 04/06/25. Generic External Data Provider LAB BLOOD BANK TE ST ORDERABLES Final Result Performing Organization Address [facility] de Phone Number [facility] [address] [place] [address] [phone] * (ABNORMAL) Comprehensive Metabolic Panel (04/02/2025 1:27 PM EDT) Sodium 141 135 - 145 mmol/L [facility] Potassium 3.5 3.3 - 5.1 mmol/L [facility] Chloride 106 96 - 108 mmol/L [facility] Carbon Dioxide 27 22 - 29 mmol/L [facility] Anion Gap 12 12 - 20 [facility] Urea Nitrogen (BUN) 17(H) 9 - 16 mg/dL [facility] Creatinine, Serum 0.51 0.5 - 1.4 mg/dL [facility] Creatinine Clr Calc Pharmacy 135.2 [facility] Comment:Provided height and weight: 163.83 cm,70.125 kg.eGFR (calculated from the MDRD study equation) and eCrCl(calculated from the Cockcroft-Gault equation) are based ondifferent parameters and may not yield comparable results.If eCrCl result is absurd, please check patient'sheight/weight. Estimated Glomerular Filt Rate >60 [facility] Comment:Chronic Kidney Disea se: Estimated GFR < 60 mL/min/1.72f5Lhcuuh Kidney Disease: Estimated GFR < 15 mL/min/1.73m2 Glucose 78 60 - 115 mg/dL [facility] Calcium 9.2 8.4 - 10.2 mg/dL [facility] Bilirubin, Total 0.7 0.0 - 1.0 mg/dL [facility] Aspartate Amino Transferase 25 5 - 31 U/L [facility] Alanine Aminotransferase 24 0 - 31 U/L [facility] Total Protein 6.9 6.5 - 8.0 g/dL [facility] Albumin Level 4.5 3.5 - 5.0 g/dL [facility] Alkaline Phosphatase 72 39 - 117 U/L [facility] 04/02/2025 1:27 PM EDT 04/02/2025 2:14 PM EDT us Generic External Data Provider LAB BLOOD ORDERAB LES Final Result [facility] [address] [place] [address] [phone] * BI US Breast Limited Right (01/22/2025 11:06 AM EDT) Anatomical Region Laterality Modality Breast Right Ultrasound 01/22/2025 11:0 6 AM EDT Narrative 01/22/2025 11:38 AM EDT [facility] [address] [place] [address] Ultrasound Report Signed Patient: Aurora Ferrara MR#: [id number] : 1980 Acct:[id number] Age/Sex: 44 / F ADM Date: 01/22/25 Loc: HO.MAMMO Attending Dr: Stan Marks CNM Ordering Physician: STAN MARKS CNM Date of Service: 01/22/25 Procedure(s): US breast RT limited Accession Number(s): [id number] cc: STAN MARKS CNM EXAMINATIONS: 1. MM [...] 01/22/25 1135 DD/ 1106 TD/TT: 01/22/25 1120 Petroleum Inspector Supervisor: Procedure Note Donotuseinterpreter, Image - 01/22/2025 [facility] [address] [place] [address] Ultrasound Report Signed Patient: Aurora Ferrara [facility]#: [id number] : 1980Acct:[id number] Age/Sex: 44 / FADM Date: 01/22/25 Loc: HO.MAMMO Attending Dr: Stan Marks CNM Ordering Physician: STAN MARKS CNM Date of Service: 01/22/25 Procedure(s): US breast RT limited Accession Number(s): [id number] cc: STAN MARKS CNM EXAMINATIONS: 1. MM [...] 01/22/25 1135 DD/ 1106 TD/TT: 01/22/25 1120 Petroleum Inspector Supervisor: Stan Marks CNM IMG US PROCEDURES Final R esult * HPV DNA, Low/High Risk (01/05/2025 2:20 PM EDT) HPV High Risk Negative Negative [facility] HPV Genotype 16 Negative Negative [facility] HPV Genotype 18 Negative Negative [facility] Comment:HPV testing performe d at [facility] (CLIA#[id number]), [address] [place] [address].Testing for HPV was performed using the [employer] [...] CNM LAB BLOOD ORDERABLES Delphine l Result [facility] [address] [place] [address] [phone] * Pap Smear (01/05/2025 2:20 PM EDT) Swab Cervix uteri structure / Unknown 01/05/2025 2:20 PM EDT 01/06/2025 7:35 AM EDT [facility] - 01/19/2025 8:59 AM EDT ----- ------- Name: Aurora Ferrara Age/Sex: 44/F : 1980 Unit#: [id number] Attend Dr: STAN MARKS CNM Re01/05/25 Status: [facility] REF Location: [facility] Disch: ----- ------- SPEC : [id number] RECD: 01/06/25 STATUS: NELI RERed NUM: [id number] ROYCE: 01/05/25-[address] [facility] [address]: STAN MARKS CNM ENTERED: 01/06/25 SP [...] at [facility] (CLIA #[id number]), [address] [place] [address]. Testing for HPV was performed using the [...] detected. All professional services are performed by [facility] ([address] [place] [address]; ; CLIA #[id number]). The PAP Test is a screening procedure with the inherent possibility of both false negative and false positive results. Results should be interpreted in the context of historic and current clinical findings. Reliability of the PAP Test is enhanced by performing the test on a regular repetitive basis. CONTINUED ON NEXT PAGE ----- ------- Name: Aurora Ferrara Age/Sex: 44/F : 1980 Unit#: [id number] Attend Dr: STAN MARKS Maty Re01/05/25 Status: DEP REF Location: [facility] Disch: ----- ------- SPEC : [id number] RECD: 01/06/25 STATUS: NELI JOHN NUM: [id number] ROYCE: 01/05/25-[address] [facility] [address]: STAN MARKS CNM ENTERED: 01/06/25 SP TYPE: Pap Smr OTHR DR: ORDERED: Pap Smear ----- ------- Signed (signature on file) KYRA Edwards (ASCP) 01/19/25 0859 ----- ------- END OF REPORT us Stan Marks CNM LAB CYTOLOGY ORDERABLES F inal Result [facility] [address] [place] [address] [phone] * Lipid Panel, Standard (11/13/2024 9:53 AM EDT) Triglycerides 46 <150 mg/dL [facility] Comment:Desirable Triglyceri de: less than 150 mg/dLBorderline High Triglyceride 150-199 mg/dLHigh Triglyceride: 200-499 mg/dLVery High Triglyceride: greater than or equal to 5OO mg/dL Cholesterol 172 <200 mg/dL [facility] Comment:Desirable Cholestero l: less than 200 mg/dLBorderline High Cholesterol: 200-239 mg/dLHigh Cholesterol: greater than 239 mg/dL LDL Cholesterol Calculated 94 <100 mg/dL [facility] Comment:Desirable LDL: less than 100 mg/dLNear Optimal/Above Optimal LDL: 110- 129 mg/dLBorderline High LDL: 130-159 mg/dLHigh LDL: 160-189 mg/dLVery High LDL: greater than or equal to 190 mg/dL HDL Cholesterol 69 >40 mg/dL [facility] Comment:Desirable HDL: great er than 40 mg/dL Note: This HDL assay may give artificially low results in patients with liver disease. 11/13/2024 9:53 AM EDT 11/13/2024 9:53 AM EDT us Generic External Data Provider LAB BLOOD ORDERAB LES Final Result Performing Organization Address [facility] Co de Phone Number [facility] [address] [place] [phone] * Hepatitis C Antibody with Reflex to HCV, RNA, Quantitative, Real-Time PCR (04/09/2024 12:15 PM EDT) Hepatitis C Antibody Nonreactive Nonreactive [facility] Comment:Antibodies to HCV no t detected; does not exclude early acuteHCV infection. Blood Venous blood specimen / Unknown 04/09/2024 12:15 PM EDT 04/09/2024 1:17 PM EDT us Magaly Maldonado MD LAB BLOOD ORDERABLES Final Result Performing Organization Address [facility] de Phone Number [facility] [address] [place] [phone] * HIV-1/2 Antigen and Antibodies, Fourth Generation, with Reflexes (04/09/2024 12:15 PM EDT) HIV AB/AG Nonreactive Nonreactive [facility] Comment:HIV-1 p24 Ag and/or HIV-1/HIV-2 Ab not detected.A test result that is nonreactive does not exclude thepossibility of exposure to or infection with HIV-1 and/orHIV-2. Nonreactive results in this assay for individualswith prior exposure to HIV-1 and/or HIV-2 may be due toantigen and antibody levels that are below the limit ofdetection of this assay.[employer] HIV Ag/Ab Combo assay result andsupplemental assay results should be interpreted inconjunction with the patient's clinical presentation,history and other laboratory results. If the results areinconsistent with clinical evidence, additional testing issuggested to confirm the result. Blood Venous blood specimen / Unknown 04/09/2024 12:15 PM EDT 04/09/2024 1:17 PM EDT Magaly Maldonado MD LAB BLOOD ORDERABLES Final Result [facility] [address] [place] [address] [phone] from Last 3 Months or Most Recently Relevant to Health Maintenance Insurance [facility] C3 Care Teams Associate Music Professor Relationship Specialty Start Date End Date Magaly Mcrae MD [address] [place] [phone] PCP - General Family Medicine 02/19/18 Anne Marie Reza Specialized DeveloperSales Project Engineer 04/14/25
--- OUTSIDE RECORDS SUMMARY | 2025-05-19 18:52 | XMS_ITS | Encounter Summary ---
Author Organization [employer] Address [address] [facility] 7 [place] [address] Care Team Providers Care Planning Director Name Role Phone Magaly Mcrae MD Primary Care Provide r Reason for Visit * Reason Onset Date Comments Referral 04/02/2025 Encounter Details Date Type Department Care Team ([facility] st Contact Info) Description 04/02/[address] [facility] [address] [place], [place] [phone] Magaly Mcrae MD [address] [place], [place] [phone] Referral Social History Tobacco Use Types Packs/Day [...] EDT Please place [facility] original referral for eczema [...] is scheduled for 01/01/2026. Contact pt at [phone] documented in this encounter Plan of Treatment Upcoming Encounters Date Type Department Care Team (Late st Contact Info) Description 06/23/2025 3:30 PM EST Office Visit [facility] [address] [place] [address] Magaly Mcrae MD [address] [place], [place] [phone] documented as of this encounter Visit Diagnoses Not on filedocumented in this encounter Additional Health Concerns Assessment Noted Time PHQ-9 Depression Total Score: 15 025 11:32 AM EDT documented as of this encounter Care Teams Planning Director Relationship Specialty Start Date End Date Magaly Mcrae MD [address] [place] [phone] PCP - General Family Medicine 02/19/18 Anne Marie eRza Nurse ExaminerDirector Of Recruitment 04/14/25 documented as of this encounter
--- OUTSIDE RECORDS SUMMARY | 2025-05-19 18:52 | XMS_ITS | Encounter Summary ---
Author Organization [employer] Address [address] [facility] 7t [place] [address] Care Team Providers Care Pcat Instructor Name Role Phone Magaly Mcrae MD Primary Care Provide r Encounter Details Date Type Department Care Team (Latest Contact Info) Description 04/05/2025 Results Follow-Up [facility] [address] [place], [place] [phone] Diya York CNM [address] [place] [address] Prothrombin Time-INR, Partial Thromboplastin Time, Activated (APTT), [...] Description 06/23/2025 3:30 PM EST Office Visit [facility] [address] [place] [phone] Magaly Mcrae MD [address] [place] [address] documented as of this encounter Visit Diagnoses Not on filedocumented in this encounter Additional Health Concerns Assessment Noted Time PHQ-9 Depression Total Score: 15 025 11:32 AM EDT documented as of this encounter Care Teams Pcat Instructor Relationship Specialty Start Date End Date Magaly Mcrae MD [address] [place] [phone] PCP - General Family Medicine 02/19/18 Anne Marie Reza Professor Of SpanishWild Life Photographer 04/14/25 documented as of this encounter
--- OUTSIDE RECORDS SUMMARY | 2025-05-19 18:52 | XMS_ITS | Encounter Summary ---
Author Organization [employer] Address [address] [facility] 7t [place] [address] Care Team Providers Care Buyer Renter Name Role Phone Magaly Mcrae MD Primary Care Provide r Encounter Details Date Type Department Care Team ([facility] st Contact Info) Description 04/29/2025 Results Follow-Up [facility] [address] [place], [place] [phone] Diya York CN [address] [place] [address] CT Abdomen Pelvis w/ Contrast, CBC auto [...] 06/23/2025 3:30 PM EST Office Visit [facility] [address] [place] [address] Magaly Mcrae MD [address] [place] [address] documented as of this encounter Visit Diagnoses Not on filedocumented in this encounter Additional Health Concerns Assessment Noted Time PHQ-9 Depression Total Score: 12 025 3:36 PM EST documented as of this encounter Care Teams Buyer Renter Relationship Specialty Start Date End Date Magaly Mcrae MD [address] [place] [address] PCP - General Family Medicine 02/19/18 Anne Marie Reza Taker OutCoroner 04/14/25 documented as of this encounter
== END 2025-05-19 13:27 | disposition home or self-care (01) ==
LOC: HO.HBS 12:07
PROVIDERS: PCP Advanced Practice Midwife; Visit Provider Nurse Practitioner
DX: Z98.890 Other specified postprocedural states (principal)
CPT/HCPCS: 99024; 99499

== ENCOUNTER → 2025-05-19 12:07 | Outpatient (BNVA) | payer MEDICAID, SELFPAY | PROVIDERS: PCP Advanced Practice Midwife; Visit Provider Nurse Practitioner | DX: Z48.815 Encounter for surgical aftercare following surgery on the digestive system (principal); Z98.890 Other specified postprocedural states; Z98.84 Bariatric surgery status; Z79.899 Other long term (current) drug therapy | CPT/HCPCS: 99212 ==

== ENCOUNTER 2025-05-24 12:54 | Outpatient (AMB) | payer MEDICAID, SELFPAY ==
--- NOTE | 2025-05-24 13:03 | MHC.OFFVISWM ---
VS Expanded 05/24/25 13:17 BP 97/54 L Blood Pressure Location Rt brachial Blood Pressure Position Sitting Pulse 67 Pulse Source Pulse Oximeter Temp 96.1 F L Temperature Source Temporal Artery Scan Pulse Oximetry 98 Oxygen Delivery Method Room Air Height 5 ft 4.5 in Weight 141 lb 12.8 oz BMI 24.0 Body Fat % 30.3 Body Fat Mass 43.0 Fat Free Mass 98.8 Visceral Fat Rating 5.0 Body Water % 49.6 Body Water Mass 70.4 Muscle Mass/Score 93.6 Basal Metabolic Rate/Score 1,339 Intake Visit Reasons: OV Panniculectomy 04/06/25 Manufacturing Advisor Required: Yes Manufacturing Advisor Services: Manufacturing Advisor Present Manufacturing Advisor Name: Arturo [id number] Information Interpreted: clinical only Allergies No Known Allergies Allergy (Verified 05/24/25 13:07) Medication List - Last Reconciled 05/24/25 by Denise Everett CNP amoxicillin-pot clavulanate 875-125 mg 1 tab PO BID 21 days bupropion HCl SR 200 mg PO QAM cholecalciferol (vitamin D3) (Vitamin D3) 25 mcg PO DAILY docusate sodium (Colace) 100 mg PO DAILY fluticasone propionate 50 mcg/actuation 1 spray intranasal BID hydroxyzine HCl 25 mg PO BID PRN levofloxacin 500 mg PO DAILY usuzyslzkqbc-ixh-sihx-FA-vit K 45 mg iron- 800 mcg-120 mcg (Bariatric Multivitamins) 1 cap PO .daily in evening ondansetron 4 mg PO Q8-12H PRN sumatriptan succinate 25 mg PO QID PRN trazodone 25 - 50 mg PO BEDTIME PRN HPI Comments Details: 44 year old woman s/p panniculectomy 04/06/2025. she is also s/p LSG with diaphragmatic hernia repair 12/28/2020. On 04/28/2025, patient presented to office with reports of +odor x4 days and green drain output x1 day. She denied fevers at home but feels software engineer web applications abdomen. Thought pain had increased in abdomen. Fluid from her drain was sent to the lab, and she was referred to the ER for CT abdomen and blood work. Lab and imaging results below. ABX was changed from Keflex BID to Doxycycline BID and Levofloxacin QD. On 04/30/2025, she presented to office for recheck of surgical site and flushing of the drain. She was flushed with a total of 20cc 50% saline/50% hydrogen peroxide. On 05/03/2025, she presented for recheck and repeat flushing. She reported drain output was 10cc each day over the weekend. She denied any odor or green colored output since flushing. Increased abd pain/discomfort in this area, to the point that she was given prn Oxycodone, which was helpful. Denied constitutional symptoms or feeling ill/feverish. On 05/05/2025, she presented for recheck and repeat flushing. She reported drain output 20cc the other day, and 10cc that morning. No green, no odor. Denied constitutional symptoms. Still taking ABX as prescribed. No pain. On 05/10/2025, her drain outputs were 1-5mL per day on her output record. No green, no odor. Denied constitutional symptoms. Still taking ABX as prescribed. No pain. Fluid from her SHARYN drain was sent for gram stain and cultures. on 05/12/2025, she was doing well. Still had < 5mL output per day. No odor or infectious symptoms. Still taking ABX. Eager to get drain removed. Also wanted to advance her diet since she was still on liquids only. She was allowed to resume normal post-op panniculectomy diet previously given by Dr. Tan. She was educated to change her SHARYN drain from bulb suction to gravity. At last visit on 05/19/2025, she was doing well. Some intermittent nausea here and there. Had not emptied drain x1 week and left it to gravity per instructions. Her drain was removed in the office. Her antibiotics were adjusted, she stopped Doxycycline and added Augmentin, and was to continue Levofloxacin. Her zofran was refilled for intermittent nausea. Today, she reports doing well. No constitutional symptoms. No incisional issues, drainage, or purulent discharge. Taking Levofloxacin and Augmentin as prescribed. Some feelings of nausea, tolerable with zofran prn. No vomitting. Tolerating meal plan. Feels mild abd pain when she presses along left side of incision. Meal Plan: Isopure protein shake 1/2 scoop per 8oz - 3x per day 1 pure protein bar 1 meal - chicken, veggies Exercise Plan: walking [facility] Medical History Postgastrectomy malabsorption GERD (gastroesophageal reflux disease) Depression Hx of bipolar disorder Panic attack Surgical History History of sleeve gastrectomy History of endometrial ablation H/O parathyroidectomy History of esophagogastroduodenoscopy (EGD) History of tonsillectomy and adenoidectomy Hx of tubal ligation Family History Mother Heart disease Arthritis Father Liver disease Herniated disc Brother No problems noted. Brother No problems noted. Brother No problems noted. Sister Diabetes Sister Migraine Sister HIV disease Sister No problems noted. Sister No problems noted. Daughter Asthma Son No problems noted. Paternal Aunt Breast cancer Social History Household Members: Family Housing: Apartment Are you a primary grounds caretaker to a significant other at home: No Do you presently have visiting nurse or other home services: No 75 years or older and lives alone: No Alcohol intake: never Patient Tobacco Use Status: Former Tobacco user Tobacco use type: Cigarette Substance Use Type: Marijuana service: No Current occupational status: unemployed Female Reproductive History Menstrual Age of Menarche: 13 Physical Exam Const General: cooperative, healthy appearing, comfortable and no acute distress Orientation/consciousness: patient oriented x3 GI Other: abd soft, flat, non-distended. Some tenderness along left side of incision. Slightly firm to touch underneath incision, likely scar, similar on right side as well, though not as firm and no pain. No fluid or fluctuance noted, no warmth, no swelling. Panniculectomy incision and umbilicus are healing well without erythema or open areas. Drain site with a drop of serous ooze, not yet healed closed. New DSD applied over drain site and umbilicus. Remainder of the long incision left open to air, approx half the incision still has steri's in place. Neuro General: patient oriented x3 Results Reviewed Results Reviewed: CT abdomen/pelvis 04/28/2025 reports: IMPRESSION: 1. No acute findings in the abdomen or pelvis. 2. Subcutaneous stranding in the anterior subcutaneous abdominal fat related to recent panniculectomy. A surgical drain is in place in the inferior anterior abdominal wall. Just superior and right lateral of the umbilicus, just anterior to the rectus sheath, there is a 6 mm nonenhancing fluid collection which may represent a seroma. This does not appear definitively drainable. Fluid collected from SHARYN drain 04/28/2025: Creatinine 1.3 Albumin 1 Glucose < 2 Amylase 38 Bilirubin 2.7 Blood draw 04/28/2025: WBC 4.9 Cultures as of 05/03/2025: Organism 1 Pseudomonas aeruginosa Quantity 4+ Organism 2 Enterobacter cloacae complex Quantity 4+ Organism 3 Methicillin Res Staph Aureus Quantity 4+ Susceptible to tetracycline and ciprofloxacin Fluid collected from SHARYN drain 05/10/2025: Gram stain Final 05/10/25 Gram stain results: No polys 4+ Gram-negative rods Routine Culture Final 05/23/25-924 Organism 1 Pseudomonas aeruginosa Quantity 3+ Organism 2 Gram negative noe Quantity 4+ Result: Brevundimonas diminuta B.diminuta INT SUZANNE CEFOTAXIME I 16 CEFTAZIDIME R >16 CEFTRIAXONE I 32 CIPROFLOXACIN R >2 LEVOFLOXACIN I 4 TETRACYCLINE R >8 TRIMETHOPRIM/SULFA S <0.5/9.5 P aerugino M.I.C. RX --------- --- Cefepime 0.5 S Ciprofloxacin >=4 R Gentamicin <=1 S Meropenem 1 S Piperacillin/Tazobactam <=4 S Assessment & Plan Assessment & Plan (1) S/P panniculectomy: Code(s): Z98.890 - Other specified postprocedural states Category: Surgical Plan: Plan: - New DSD applied over drain site and umbilicus. DSD is to prevent friction/irritation on abdominal binder. Remainder of the long incision left open to air, approx half the incision still has steri's in place. - She may shower, but no submerging in water. - Allow light exercise such as walking, light weights with arms. No abdominal exercises or heavy lifting x3 months postop. - ABX: continue levofloxacin and Augmentin. Likely x2 weeks. Refill of Levofloxacin sent today. - Continue meal plan - continue daily yogurt to promote healthy gut bacteria (Activia brand, zero sugar, 3G protein) - Call office for any concerns/questions, S&S worsening infection Follow up: 1 week (2) S/P laparoscopic sleeve gastrectomy: Code(s): Z98.84 - Bariatric surgery status Category: Surgical Plan: . Medications: Refilled levofloxacin 500 mg PO DAILY 14 tabs 0RF
[2025-05-24 13:17] VITALS: BP 97/54; PULSE 67; TEMP 35.6; O2SAT 98; BMI 24.0
== END 2025-05-24 14:01 | disposition home or self-care (01) ==
LOC: HO.HBS 12:55
PROVIDERS: PCP Advanced Practice Midwife; Visit Provider Nurse Practitioner
DX: Z98.84 Bariatric surgery status (principal); Z98.890 Other specified postprocedural states
CPT/HCPCS: 99024

== ENCOUNTER → 2025-05-24 12:54 | Outpatient (BNVA) | payer MEDICAID, SELFPAY | PROVIDERS: PCP Advanced Practice Midwife; Visit Provider Nurse Practitioner | DX: Z48.815 Encounter for surgical aftercare following surgery on the digestive system (principal); Z98.890 Other specified postprocedural states; Z98.84 Bariatric surgery status; Z79.899 Other long term (current) drug therapy | CPT/HCPCS: 99212 ==

== ENCOUNTER 2025-05-31 11:22 | Outpatient (AMB) | payer MEDICAID, SELFPAY ==
--- NOTE | 2025-05-31 11:43 | A.OFFVIS_ITS ---
VS Expanded 05/31/25 11:53 BP 100/58 L Blood Pressure Location Rt brachial Blood Pressure Position Sitting Pulse 51 Pulse Source Pulse Oximeter Temp 98.1 F Temperature Source Temporal Artery Scan Pulse Oximetry 98 Oxygen Delivery Method Room Air Height 5 ft 4.5 in Weight 143 lb 3.2 oz BMI 24.2 Body Fat % 28.8 Body Fat Mass 41.2 Fat Free Mass 101.8 Visceral Fat Rating 5.0 Body Water % 50.8 Body Water Mass 72.8 Muscle Mass/Score 96.8 Basal Metabolic Rate/Score 1,372 Intake Visit Reasons: OV Panniculectomy 04/06/25 Stone Lathe Operator Required: Yes Stone Lathe Operator Services: Stone Lathe Operator Present Stone Lathe Operator Name: Aura Mark [id number] Information Interpreted: clinical only Allergies No Known Allergies Allergy (Verified 05/31/25 11:55) Medication List - Last Reconciled 05/31/25 by Denise Everett CNP amoxicillin-pot clavulanate 875-125 mg 1 tab PO BID 21 days bupropion HCl SR 200 mg PO QAM cholecalciferol (vitamin D3) (Vitamin D3) 25 mcg PO DAILY docusate sodium (Colace) 100 mg PO DAILY fluticasone propionate 50 mcg/actuation 1 spray intranasal BID hydroxyzine HCl 25 mg PO BID PRN levofloxacin 500 mg PO DAILY zpthjzpcxdhs-yvh-mahk-FA-vit K 45 mg iron- 800 mcg-120 mcg (Bariatric Multivitamins) 1 cap PO .daily in evening ondansetron 4 mg PO Q8-12H PRN sumatriptan succinate 25 mg PO QID PRN trazodone 25 - 50 mg PO BEDTIME PRN HPI Comments Details: 44 year old woman s/p panniculectomy 04/06/2025. she is also s/p LSG with diaphragmatic hernia repair 12/28/2020. On 04/28/2025, patient presented to office with reports of +odor x4 days and green drain output x1 day. She denied fevers at home but feels lead software development engineer abdomen. Thought pain had increased in abdomen. Fluid from her drain was sent to the lab, and she was referred to the ER for CT abdomen and blood work. Lab and imaging results below. ABX was changed from Keflex BID to Doxycycline BID and Levofloxacin QD. On 04/30/2025, she presented to office for recheck of surgical site and flushing of the drain. She was flushed with a total of 20cc 50% saline/50% hydrogen peroxide. On 05/03/2025, she presented for recheck and repeat flushing. She reported drain output was 10cc each day over the weekend. She denied any odor or green colored output since flushing. Increased abd pain/discomfort in this area, to the point that she was given prn Oxycodone, which was helpful. Denied constitutional symptoms or feeling ill/feverish. On 05/05/2025, she presented for recheck and repeat flushing. She reported drain output 20cc the other day, and 10cc that morning. No green, no odor. Denied constitutional symptoms. Still taking ABX as prescribed. No pain. On 05/10/2025, her drain outputs were 1-5mL per day on her output record. No green, no odor. Denied constitutional symptoms. Still taking ABX as prescribed. No pain. Fluid from her SHARYN drain was sent for gram stain and cultures. on 05/12/2025, she was doing well. Still had < 5mL output per day. No odor or infectious symptoms. Still taking ABX. Eager to get drain removed. Also wanted to advance her diet since she was still on liquids only. She was allowed to resume normal post-op panniculectomy diet previously given by Dr. Tan. She was educated to change her SHARYN drain from bulb suction to gravity. On 05/19/2025, she was doing well. Some intermittent nausea here and there. Had not emptied drain x1 week and left it to gravity per instructions. Her drain was removed in the office. Her antibiotics were adjusted, she stopped Doxycycline and added Augmentin, and was to continue Levofloxacin. Her zofran was refilled for intermittent nausea. At last visit 05/26/2025, she reported doing well. No constitutional symptoms. No incisional issues, drainage, or purulent discharge. Taking Levofloxacin and Augmentin as prescribed. Some feelings of nausea, tolerable with zofran prn. No vomitting. Tolerating meal plan. Gilberts mild abd pain when she pressed along left side of incision. Today, she is doing well. No constitutional or incisional issues. No abdominal pain, reflux, or constipation. Nausea improved. Wearing a compressive body suit. she reports a change to meal plan. Has 4 FF chicken for lunch some days. Noticed a 2 lb weight increase. Taking ABX as prescribed. Meal Plan: Isopure protein shake 1/2 scoop per 8oz - 3x per day 1 pure protein bar Lunch: sometimes has 4 FF chicken Dinner: 4 FF chicken, 4 FF veggies Exercise Plan: walking PFSH Medical History Postgastrectomy malabsorption GERD (gastroesophageal reflux disease) Depression Hx of bipolar disorder Panic attack Surgical History History of sleeve gastrectomy History of endometrial ablation H/O parathyroidectomy History of esophagogastroduodenoscopy (EGD) History of tonsillectomy and adenoidectomy Hx of tubal ligation Family History Mother Heart disease Arthritis Father Liver disease Herniated disc Brother No problems noted. Brother No problems noted. Brother No problems noted. Sister Diabetes Sister Migraine Sister HIV disease Sister No problems noted. Sister No problems noted. Daughter Asthma Son No problems noted. Paternal Aunt Breast cancer Social History Household Members: Family Housing: Apartment Are you a primary career guidance counselor to a significant other at home: No Do you presently have visiting nurse or other home services: No 75 years or older and lives alone: No Alcohol intake: never Patient Tobacco Use Status: Former Tobacco user Tobacco use type: Cigarette Substance Use Type: Marijuana service: No Current occupational status: unemployed Female Reproductive History Menstrual Age of Menarche: 13 Physical Exam Const General: cooperative, healthy appearing, comfortable and no acute distress Orientation/consciousness: patient oriented x3 GI Other: abd soft, flat, non-distended. Slightly more noticable excess skin on flanks when standing. Soft to palpation, no obvious fluctuation or abscess noted. No tenderness. Panniculectomy incision and umbilicus are healing well without erythema or open areas. Drain site scabbed over. Remaining steri strips loose and removed. 1 small circular area in middle of panniculectomy incision that is raw/irritated. Bandaid placed over. Incisions otherwise left open to air. Neuro General: patient oriented x3 Results Reviewed Results Reviewed: Results Reviewed: CT abdomen/pelvis 04/28/2025 reports: IMPRESSION: 1. No acute findings in the abdomen or pelvis. 2. Subcutaneous stranding in the anterior subcutaneous abdominal fat related to recent panniculectomy. A surgical drain is in place in the inferior anterior abdominal wall. Just superior and right lateral of the umbilicus, just anterior to the rectus sheath, there is a 6 mm nonenhancing fluid collection which may represent a seroma. This does not appear definitively drainable. Fluid collected from SHARYN drain 04/28/2025: Creatinine 1.3 Albumin 1 Glucose < 2 Amylase 38 Bilirubin 2.7 Blood draw 04/28/2025: WBC 4.9 Cultures as of 05/03/2025: Organism 1 Pseudomonas aeruginosa Quantity 4+ Organism 2 Enterobacter cloacae complex Quantity 4+ Organism 3 Methicillin Res Staph Aureus Quantity 4+ Susceptible to tetracycline and ciprofloxacin Fluid collected from SHARYN drain 05/10/2025: Gram stain Final 05/10/251359 Gram stain results: No polys 4+ Gram-negative rods Routine Culture Final 05/23/25-62 Organism 1 Pseudomonas aeruginosa Quantity 3+ Organism 2 Gram negative noe Quantity 4+ Result: Brevundimonas diminuta B.diminuta INT SUZANNE CEFOTAXIME I 16 CEFTAZIDIME R >16 CEFTRIAXONE I 32 CIPROFLOXACIN R >2 LEVOFLOXACIN I 4 TETRACYCLINE R >8 TRIMETHOPRIM/SULFA S <0.5/9.5 P aerugino M.I.C. RX --------- --- Cefepime 0.5 S Ciprofloxacin >=4 R Gentamicin <=1 S Meropenem 1 S Piperacillin/Tazobactam <=4 S Assessment & Plan Assessment & Plan (1) S/P panniculectomy: Code(s): Z98.890 - Other specified postprocedural states Category: Surgical Plan: Plan: - Bandaid over small raw/irritated area in center of panniculectomy incision. Otherwise, left open to air. - She may continue to shower, but no submerging in water. - Allow light exercise such as walking, and encouraged to start light cardio exercise. Light weights with arms fine. No abdominal exercises or heavy lifting x3 months postop. - ABX: continue levofloxacin and Augmentin x1 more week. - Regarding meal plan, she added in 4 FF of chicken which increased her protein and likely caused her 2 lb weight gain. If she is going to have the chicken for lunch, she should reduce the protein bar or shake to accommodate for it. She asked about soup, we discussed the high salt content of canned and restaurant soup, and I recommended she makes her own and does not add any salt. - continue daily yogurt to promote healthy gut bacteria (Activia brand, zero sugar, 3G protein) - Call office for any concerns/questions, S&S worsening infection Follow up: 1 week
[2025-05-31 11:53] VITALS: BP 100/58; PULSE 51; TEMP 36.7; O2SAT 98; BMI 24.2
--- OUTSIDE RECORDS SUMMARY | 2025-05-31 14:32 | XMS_ITS | Encounter Summary ---
Author Organization [facility] Address [address] [place] [address] Care Team Providers Care Internet Specialist Name Role Phone Thu Tam MD Primary Care Provider + [phone] Encounter Details Date Type Department Care Team (Late st Contact Info) Description 02/04/2025 Lab Requisition [facility] - Main Lab [address] [place] [phone] Bettina Sanford MD [address] [facility] [address] [place] [phone] Abnormal uterine and vaginal bleeding, unspecified Social [...] No endometrium identified 02/05/2025 1:27 PM EDT [facility] at 1327 EDT Clinical Information [...] [facility] [address] [place] [address], documented in this encounter Visit Diagnoses Diagnosis Abnormal uterine and vaginal bleeding, unspecified documented in this encounter Care Teams Internet Specialist Relationship Specialty Start Date End Date Thu Tam MD [address] [place] [phone] PCP - General Internal Medicine 03/13/24 documented as of this encounter
--- OUTSIDE RECORDS SUMMARY | 2025-05-31 14:32 | XMS_ITS | Encounter Summary ---
Author Organization [employer] Address [address] [facility] 7 [place] [address] Care Team Providers Care Outsole Rounder Name Role Phone Magaly Mcrae MD Primary Care Provide r Reason for Visit * Reason Onset Date Comments Referral 04/02/2025 Encounter Details Date Type Department Care Team ([facility] st Contact Info) Description 04/02/2025 Telephone [facility] [address] [place], [place] [phone] Magaly Mcrae MD [address] [place], [place] [phone] Referral Social History Tobacco Use Types Packs/Day [...] EDT Please place derm [facility], original referral for eczema [...] is scheduled for 01/01/2026. Contact pt at [phone] documented in this encounter Plan of Treatment Upcoming Encounters Date Type Department Care Team (Late st Contact Info) Description 06/23/2025 3:30 PM EST Office Visit [facility] [address] [place] [address] Magaly Mcrae MD [address] [place], [place] [phone] documented as of this encounter Visit Diagnoses Not on filedocumented in this encounter Additional Health Concerns Assessment Noted Time PHQ-9 Depression Total Score: 15 025 11:32 AM EDT documented as of this encounter Care Teams Outsole Rounder Relationship Specialty Start Date End Date Magaly Mcrae MD [address] [place] [address] PCP - General Family Medicine 02/19/18 Anne Marie Reza Restaurant CrewCoal Pulverizer Operator 04/14/25 documented as of this encounter
--- OUTSIDE RECORDS SUMMARY | 2025-05-31 14:32 | XMS_ITS | Encounter Summary ---
Author Organization [employer] Address [address] [facility] [address] [place] [address] Care Team Providers Care Can Line Operator Name Role Phone Magaly Mcrae MD Primary Care Provide r Encounter Details Date Type Department Care Team ([facility] st Contact Info) Description 02/13/2024 Telephone [facility] [address] [place], [place] [phone] Magaly Mcrae MD [address] [place], [place] [phone] Social History Tobacco Use Types Packs/Day Years [...] Description 06/23/2025 3:30 PM EST Office Visit [facility] [address] [place] [phone] Magaly Mcrae MD [address] [place] [phone] documented as of this encounter Visit Diagnoses Not on filedocumented in this encounter Additional Health Concerns Assessment Noted Time PHQ-9 Depression Total Score: 11 023 3:07 PM EDT documented as of this encounter Care Teams Can Line Operator Relationship Specialty Start Date End Date Magaly Mcrae MD [address] [place] [id number] PCP - General Family Medicine 02/19/18 Anne Marie Reza Job CoachPatient Intake Representative 04/14/25 documented as of this encounter
--- OUTSIDE RECORDS SUMMARY | 2025-05-31 14:32 | XMS_ITS | Encounter Summary ---
Author Organization [employer] Address [address] [facility] [address] [place] [address] Care Team Providers Care Book Sewing Machine Operator Name Role Phone Magaly Mcrae MD Primary Care Provide r Encounter Details Date Type Department Care Team ([facility] st Contact Info) Description 04/29/2025 Results Follow-Up [facility] [address] [place], [place] [phone] Diya York CN [address] [place] [address] CT Abdomen Pelvis w/ Contrast, CBC auto [...] Description 06/23/2025 3:30 PM EST Office Visit [facility] [address] [place] [address] Magaly Mcrae MD [address] [place] [address] documented as of this encounter Visit Diagnoses Not on filedocumented in this encounter Additional Health Concerns Assessment Noted Time PHQ-9 Depression Total Score: 12 025 3:36 PM EST documented as of this encounter Care Teams Book Sewing Machine Operator Relationship Specialty Start Date End Date Magaly Mcrae MD [address] [place] [address] PCP - General Family Medicine 02/19/18 Anne Marie Reza Support MerchandiserPaste Plant Supervisor 04/14/25 documented as of this encounter
--- OUTSIDE RECORDS SUMMARY | 2025-05-31 14:32 | XMS_ITS | Encounter Summary ---
Author Organization [employer] Address [address] [facility] 7t [place] [address] Care Team Providers Care Supervising Architect Name Role Phone Magaly Mcrae MD Primary Care Provide r Encounter Details Date Type Department Care Team (Latest Contact Info) Description 04/05/2025 Results Follow-Up [facility] [address] [place], [place] [phone] Diya York CNM [address] [place] [address] Prothrombin Time-INR, Partial Thromboplastin Time, Activated (APTT), [...] [facility] [address] [place] [phone] Magaly Mcrae MD [address] [place] [address] documented as of this encounter Visit Diagnoses Not on filedocumented in this encounter Additional Health Concerns Assessment Noted Time PHQ-9 Depression Total Score: 15 025 11:32 AM EDT documented as of this encounter Care Teams Supervising Architect Relationship Specialty Start Date End Date Magaly Mcrae MD [address] [place] [phone] PCP - General Family Medicine 02/19/18 Anne Marie Reza Stage Settings PainterSatellite Specialist 04/14/25 documented as of this encounter
--- OUTSIDE RECORDS SUMMARY | 2025-05-31 14:32 | XMS_ITS | Clinical Summary ---
Author Organization [address] [facility] Address [address] [place] [address] Phone Care Team Providers Care Commercial Census Taker Name Role Phone Thu Tam MD Primary Care Provider + [phone] Allergies No known active allergies Medications DICLOFENAC [...] topic Insurance MEDICAID - [place] Care Teams Commercial Census Taker Relationship Specialty Start Date End Date Thu Tam MD [address] [place] [phone] PCP - General Internal Medicine 03/13/24
--- OUTSIDE RECORDS SUMMARY | 2025-05-31 14:32 | XMS_ITS | Clinical Summary ---
Author Organization [employer] Address [address] [facility] [address] [place] [address] Care Team Providers Care Lead Javascript Developer Name Role Phone Magaly Mcrae MD [...] Plan (02/07/2024 1:00 PM EDT): Refer to Health Careers Instructor. Chronic pain of left knee 10/24/2022 Assessment [...] help PLAN: 1. Follow up with [facility]: Not recommended for follow-up 2. Patient goal is to obtain her meds and become stable. 3. Behavioral Recommendations a. Ind. Therapy b. Med. Management c. Coping skills provided. Assessment & Plan (10/25/2022 4:25 PM EDT): Counseling done BN referral I will start her again on Wellbutrin 150mg daily Hypercalcemia 04/10/2012 Encounters Date Type Department Care Team Description 05/13/2025 Telephone [facility] [address] [place] [phone] Magaly Mcrae MD Referral 05/10/2025 Orders Only GENERIC EXTERNAL DATA DEPARTMENT Provider, Generic External Data 04/29/2025 Results Follow-Up [address] [address] Abdomen Pelvis w/ Contrast, CBC auto differential, Hepatic Function Panel, Additional followed-up results: 13 04/28/2025 Orders Only GENERIC EXTERNAL DATA DEPARTMENT Provider, Generic External Data 04/17/[address] [address] Magaly Mcrae MD Seasonal allergic rhinitis, unspecified trigger 04/14/2025 Telephone [facility] [address] [place], [place] [phone] Magaly Mcrae MD Care Coordination (ICP Care Plan) 04/13/2025 3:15 PM EST Office Visit [facility] [address] [place] [address] Magaly Mcrae MD Encounter for preventive care (Primary Dx); Dietary counseling; Exercise counseling; Post-surgical hypoparathyroidism; Irritant contact dermatitis, unspecified trigger 04/13/2025 Travel 04/12/[address] [address] Magaly Mcrae MD Chart Prep 04/06/2025 Orders Only GENERIC EXTERNAL DATA DEPARTMENT Provider, Generic External Data 04/06/2025 Patient Outreach [facility] [address] [place], [place] [phone] Magaly Mcrae MD Pre-visit Planning ([facility] unable to reach [facility]) 04/05/2025 Telephone [facility] [address] [place], [place] [phone] Magaly Mcrae MD tammy recall 04/05/2025 Results Follow-Up [address] [address] Stan Marks, CNM Prothrombin Time-INR, Partial Thromboplastin Time, Activated (APTT), CBC auto differential, Additional followed-up results: 2 04/02/2025 Orders Only [address] [phone] Magaly Mcrae MD Eczema, unspecified type (Primary Dx) 04/02/[address] [phone] Magaly Mcrae MD Referral from Last 3 [...] Description 06/23/2025 3:30 PM EST Office Visit [facility] [address] [place], [place] [phone] Magaly Mcrae MD [address] [place] [address] Health Maintenance Due Date Last Done Comments [...] 05/10/2025 12:45 PM EST Comment:Abdom Fld Narrative [facility] - 05/23/2025 9:25 AM EST Abdominal swab Gram stain results: No polys 4+ Gram-negative rods Abdominal swab Pseudomonas aeruginosa Quant Org ID 3+ Gram negative noe Quant Org ID 4+ ORGANISM #2 SENT TO REFERENCE LAB FOR IDENTIFICATION AND SUSCEPTIBILITY TESTING -- ORGANISM #2 AEROBIC BACTERIUM ID AND SUSCEPTIBILITY Micro Number: [id number] Test Status: Final Specimen Source: Abdominal fluid Specimen Quality: Adequate Result: Brevundimonas diminuta B.diminuta INT SUZANNE CEFOTAXIME I 16 CEFTAZIDIME R >16 CEFTRIAXONE I 32 CIPROFLOXACIN R >2 LEVOFLOXACIN I 4 TETRACYCLINE R >8 TRIMETHOPRIM/SULFA S <0.5/9.5 S = Susceptible I = Intermediate R = Resistant NS = Not susceptible SDD = Susceptible Dose Dependent * = Not Tested NR = Not Reported NN = See Therapy Comment Testing Performed by: [facility] [address] [place] [address], [place] [address] Projector Operator: Kei Nicole M.D. Pseudomonas aeruginosa: Cefepime 0.5(S) Pseudomonas aeruginosa: Ciprofloxacin >=4(R) Pseudomonas aeruginosa: Gentamicin <=1(S) Pseudomonas aeruginosa: Meropenem 1(S) Pseudomonas aeruginosa: Piperacillin/Tazobactam <=4(S) Specimen Source: Abdominal Fluid us Generic External Data Provider HISTORICAL/NON OR DERABLE LABS Final Result [facility] [address] [place] [phone] * CT Abdomen Pelvis w/ Contrast (04/28/2025 4:35 PM EST) Anatomical Region Laterality Modality Body, Pelvis, Abdomen Computed T omography 04/28/2025 4:35 PM EST Narrative 04/28/2025 5:04 PM EST [address] [address] [address] Scan Report Signed Patient: Aurora Ferrara MR#: [id number] : 1980 Acct:[id number] Age/Sex: 44 / F ADM Date: 04/28/25 Loc: HO.ED Attending Dr: Ordering Physician: Luisa Joyner Date of Service: 04/28/25 Procedure(s): CT abdomen pelvis w IV con Accession Number(s): [id number] cc: Luisa Joyner; STAN MARKS [facility] Report Number: [id number]: Total DLP = 475.00 mGy-cm Reason for [...] by: Todd Nguyễn MD 04/28/2025 05:02 PM [facility] Dictated By: Todd Nguyễn MD Signed By: <Electronically signed by Todd Nguyễn MD in OV> 04/28/25 1702 DD/ 1635 TD/TT: 04/28/25 1647 Plastic And Reconstructive Surgeon: Procedure Note Donotuseinterpreter, Image - 04/28/[address] [address] [address] Scan Report Signed Patient: Aurora Ferrara [facility]#: [id number] : 1980Acct:[id number] Age/Sex: 44 / FADM Date: 04/28/25 Loc: HO.ED Attending Dr: Ordering Physician: Luisa Joyner Date of Service: 04/28/25 Procedure(s): CT abdomen pelvis w IV con Accession Number(s): [id number] cc: Luisa Joyner; STAN MARKS [facility] Report Number: [id number]: Total DLP = 475.00 mGy-cm Reason for [...] by: Todd Nguyễn MD 04/28/2025 05:02 PM [facility] Dictated By: Todd Nguyễn MD Signed By: <Electronically signed by Todd Nguyễn MD in OV> 04/28/25 1702 DD/ 1635 TD/TT: 04/28/25 1647 Plastic And Reconstructive Surgeon: [facility] External Provider IMG CT PROCEDURES Final Result * Lactic Acid (04/28/2025 12:47 PM EST) Lactic Acid 1.3 0.5 - 2.0 mmol/L [facility] 04/28/2025 12:4 7 PM EST 04/28/2025 12:51 PM EST Generic External Data Provider LAB BLOOD ORDERAB LES Final Result Performing Organization Address [facility] Co de Phone Number [facility] [address] [place] [phone] * Blood Culture (First) (04/28/2025 12:36 PM EST) Blood Venous blood specimen / Unknown 04/28/2025 12:36 PM EST 04/28/2025 12:40 PM EST Comment:Blood Narrative [facility] - 05/03/2025 2:41 PM EST Blood Culture (First) No growth after 5 days. Specimen Source: Blood Generic External Data Provider LAB MICROBIOLOGY - GENERAL ORDERABLES Final Result Performing Organization Address City/[facility] Co de Phone Number [facility] [address] [place] [phone] * Blood Culture (Second) (04/28/2025 12:36 PM EST) Blood Venous blood specimen / Unknown 04/28/2025 12:36 PM EST 04/28/2025 12:40 PM EST Comment:Blood Narrative [facility] - 05/03/2025 2:41 PM EST Blood Culture (Second) No growth after 5 days. Specimen Source: Blood Generic External Data Provider LAB MICROBIOLOGY - GENERAL ORDERABLES Final Result Performing Organization Address City/[facility]/ZIP Co de Phone Number [facility] [address] [place] [phone] * CBC auto differential (04/28/2025 12:36 PM EST) Only the most recent of2 resultswithin the time period is included. White Blood Count 4.9 4.8 - 10.8 X10*3/uL [facility] Red Blood Count 4.34 4.20 - 5.50 X10*6/uL [facility] Hemoglobin 13.5 12.0 - 16.0 g/dl [facility] Hematocrit 39.7 37.0 - 47.0 % [facility] Mean Corpuscular Volume 91.5 80.0 - 98.0 fL [facility] Mean Corpuscular Hemoglobin 31.1 27.0 - 33.0 pg [facility] Mean Corpuscular HGB Conc 34.0 31.0 - 35.0 g/dl [facility] Red Cell Distribution Width 11.3 11.0 - 16.0 % [facility] Platelet Count 280 160 - 400 X10*3/uL [facility] Mean Platelet Volume 9.5 9.4 - 12.3 fL [facility] Neutrophils Percent Auto 64.6 45 - 73 % [facility] Imm Gran Pct Auto 0.2 0.0 - 0.4 % [facility] Lymphocytes Percent Auto 25.9 20 - 40 % [facility] Monocytes Percent Auto 7.9 2 - 11 % [facility] Eosinophils Percent Auto 1.0 0 - 4 % [facility] Basophils Percent Auto 0.4 0 - 2 % [facility] NRBC Pct Auto 0.0 0.0 - 0.2 /100WBC [facility] Neutrophils Absolute Auto 3.2 2.0 - 8.3 x10*3/uL [facility] Imm Gran Abs Auto 0.01 0.00 - 0.03 X10*3/uL [facility] Lymphocytes Absolute Auto 1.3 1.2 - 4.9 X10*3/uL [facility] Monocytes Absolute Auto 0.4 0.1 - 1.2 X10*3/uL [facility] Eosinophils Absolute Auto 0.1 0.0 - 0.4 X10*3/uL [facility] Basophils Absolute Auto 0.0 0.0 - 0.2 X10*3/uL [facility] NRBC Abs Auto 0.000 0.0 - 0.012 X10*3/uL [facility] 04/28/2025 12:3 6 PM EST 04/28/2025 12:40 PM EST Generic External Data Provider LAB BLOOD ORDERAB LES Final Result Performing Organization Address [facility] Co de Phone Number [facility] [address] [place] [phone] * hCG, Total, Quantitative (04/28/2025 12:36 PM EST) HCG Quantitative 4 mIU/mL [facility] Comment:Weeks post LMP Appr oximate hCG(Last Menstrual Period) Range (mIU/ml)3 - 4 weeks 9 - 1304 - 5 weeks 75 - 2,6005 - 6 weeks 850 - 20,8006 - 7 weeks 4000 - 100,2007 - 12 weeks 11,500 - 289,96238 - 16 weeks 18,300 - 137,75226 - 29 weeks (2nd trimester) 1,400 - 53,45639 - 41 weeks (3rd trimester) 940 - [...] LES Final Result Performing Organization Address [facility]/ZIP Co de Phone Number [facility] [address] [place] [phone] * Magnesium (04/28/2025 12:36 PM EST) Magnesium 2.2 1.6 - 2.6 mg/dL [facility] 04/28/2025 12:3 6 PM EST 04/28/2025 12:40 PM EST Generic External Data Provider LAB BLOOD ORDERAB LES Final Result Performing Organization Address City/[facility]/ZIP Co de Phone Number [facility] [address] [place] [phone] * Lipase (04/28/2025 12:36 PM EST) Pathologist [facility] Lipase 28 8 - 78 U/L [facility] 04/28/2025 12:3 6 PM EST 04/28/2025 12:40 PM EST us Generic External Data Provider LAB BLOOD ORDERAB LES Final Result Performing Organization Address [facility] Co de Phone Number [facility] [address] [place] [phone] * (ABNORMAL) Hepatic Function Panel (04/28/2025 12:36 PM EST) Bilirubin, Total 0.7 0.0 - 1.0 mg/dL [facility] Bilirubin, Direct 0.2 0.0 - 0.5 mg/dL [facility] Aspartate Amino Transferase 29 5 - 31 U/L [facility] Alanine Aminotransferase 48(H) 0 - 31 U/L [facility] Total Protein 7.7 6.5 - 8.0 g/dL [facility] Albumin Level 4.8 3.5 - 5.0 g/dL [facility] Alkaline Phosphatase 84 39 - 117 U/L [facility] 04/28/2025 12:3 6 PM EST 04/28/2025 12:40 PM EST us Generic External Data Provider LAB BLOOD ORDERAB LES Final Result Performing Organization Address [facility]/ZIP Co de Phone Number [facility] [address] [place] [phone] * (ABNORMAL) Basic Metabolic Panel (04/28/2025 12:36 PM EST) Sodium 139 135 - 145 mmol/L [facility] Potassium 3.8 3.3 - 5.1 mmol/L [facility] Chloride 104 96 - 108 mmol/L [facility] Carbon Dioxide 28 22 - 29 mmol/L [facility] Anion Gap 11(L) 12 - 20 [facility] Urea Nitrogen (BUN) 16 9 - 16 mg/dL [facility] Creatinine, Serum 0.53 0.5 - 1.4 mg/dL [facility] Creatinine Clr Calc Pharmacy 121.8 [facility] Comment:Provided height and weight: 165.1 cm,67.132 kg.eGFR (calculated from the MDRD study equation) and eCrCl(calculated from the Cockcroft-Gault equation) are based ondifferent parameters and may not yield comparable results.If eCrCl result is absurd, please check patient'sheight/weight. Estimated Glomerular Filt Rate >60 [facility] Comment:Chronic Kidney Disea se: Estimated GFR < 60 mL/min/1.56v4Zhivsi Kidney Disease: Estimated GFR < 15 mL/min/1.73m2 Glucose 83 60 - 115 mg/dL [facility] Calcium 9.7 8.4 - 10.2 mg/dL [facility] 04/28/2025 12:3 6 PM EST 04/28/2025 12:40 PM EST us Generic External Data Provider LAB BLOOD ORDERAB LES Final Result Performing Organization Address City/[facility]/ZIP Co de Phone Number [facility] [address] [place] [phone] * Amylase, Peritoneal Fluid (04/28/2025 10:28 AM EST) Amylase, Peritoneal Fluid 38 [facility] Comment:Units: U/LThe refere nce range and other method performancespecifications have not been established for this bodyfluid. The test result must be integrated into the clinicalcontext for interpretation.Testing performed at: [facility] [address] [address] 04/28/2025 10:2 8 AM EST 04/28/2025 12:13 PM EST Generic External Data Provider LAB BODY FLUIDS A ND STOOLS ORDERABLES Final Result Performing Organization Address [facility] Co de Phone Number [facility] [address] [place] [phone] * Glucose Peritoneal Fluid (04/28/2025 10:28 AM EST) Glucose, Peritoneal Fluid <2 [facility] Comment:Units: MG/DLThe refe rence range and other method performancespecifications have not been established for this bodyfluid. The test result must be integrated into the clinicalcontext for interpretation.Testing performed at: [facility] [address] [address] 04/28/2025 10:2 8 AM EST 04/28/2025 12:13 PM EST Generic External Data Provider LAB BODY FLUIDS A ND STOOLS ORDERABLES Final Result Performing Organization Address [facility] Co de Phone Number [facility] [address] [place] [phone] * Albumin Peritoneal Fluid (04/28/2025 10:28 AM EST) Albumin Peritoneal Fluid 1.0 [facility] Comment:Units: GM/DLThe refe rence range and other method performancespecifications have not been established for this bodyfluid. The test result must be integrated into the clinicalcontext for interpretation.Testing performed at: [facility] [address] [place] [address] 04/28/2025 10:2 8 AM EST 04/28/2025 12:13 PM EST Generic External Data Provider LAB BODY FLUIDS A ND STOOLS ORDERABLES Final Result Performing Organization Address [facility] Co de Phone Number [facility] [address] [place] [phone] * Other Reference Test - Misc (04/28/2025 10:28 AM EST) Other Ref Test Misc SEE NOTE [facility] Comment:See scanned report i n EMR 04/28/2025 10:2 8 AM EST 04/28/2025 12:13 PM EST Narrative [facility] - 04/29/2025 7:27 AM EST bilirubin level for intraabdominal fluid Generic External Data Provider LAB BLOOD ORDERAB LES Final Result Performing Organization Address [facility] de Phone Number [facility] [address] [place] [phone] * Creatinine, body fluid (04/28/2025 10:28 AM EST) Creatinine Peritoneal Fluid 1.3 [facility] Comment:Units: MG/DLThe refe rence range and other method performancespecifications have not been established for this bodyfluid. The test result must be integrated into the clinicalcontext for interpretation.Testing performed at: [facility] [address] [place] [address] 04/28/2025 10:2 8 AM EST 04/28/2025 12:13 PM EST Generic External Data Provider LAB BODY FLUIDS A ND STOOLS ORDERABLES Final Result Performing Organization Address [facility] Co de Phone Number [facility] [address] [place] [phone] * Gross and Microscopic Level 2 (04/06/2025 11:22 AM EDT) 04/06/2025 11:2 2 AM EDT 04/06/2025 1:50 PM EDT [facility] - 04/09/2025 10:21 AM EDT ----- ------- Name: Aurora Ferrara Age/Sex: 44/F : 1980 Unit#: [id number] Attend Dr: Kashmir Freeman MD Re04/06/25 Status: [facility] Location: [facility] Disch: ----- ------- SPEC : [id number] RECD: 04/06/25 STATUS: NELI JOHN NUM: [id number] ROYCE: 04/06/25 [facility] [address]: Kashmir Freeman MD ENTERED: 04/06/25 SP [...] fibrofatty subcutaneous soft tissue without discrete abnormality. Lens Mounter sections are submitted in cassettes A1 -3. B. Received in formalin is a 1.6 cm in greatest dimension portion of fibrofatty soft tissue, sectioned and entirely submitted in cassette B1. (DTL) IHC S/NG Disclaimer NOTE: Unless otherwise stated, all tissue is formalin-fixed and paraffin-embedded. Some or all of the immunohistochemical tests reported herein may have been developed and their performance characteristics determined by [facility]. They have not been cleared or [...] Aurora Ferrara Age/Sex: 44/F : 1980 Unit#: [id number] Attend Dr: Kashmir Freeman MD Re04/06/25 Status: [facility] Location: [facility] Disch: ----- ------- SPEC : [id number] RECD: 04/06/25388 STATUS: NELI JOHN NUM: [id number] ROYCE: 04/06/251122 SUBM DR: Kashmir Freeman MD ENTERED: 04/06/254549 SP TYPE: Surgical OTHR DR: STAN MARKS CNM ORDERED: Gross Micro L2, Gross Micro L3 Copies To: Kashmir Freeman MD [facility] [address] [place] [phone] STAN MARKS CNM [facility] [address] [place] [address] ----- ------- Signed (signature on file) Katharina Duron MD 04/09/25 1021 ----- ------- END OF REPORT us Generic External Data Provider LAB CYTOLOGY HOLLY CHILD Final Result [facility] [address] [place] [phone] * Partial Thromboplastin Time, Activated (APTT) (04/02/2025 1:27 PM EDT) Partial Thromboplastin Time 33.6 26.7 - 34.1 SEC [facility] 04/02/2025 1:27 PM EDT 04/02/2025 1:47 PM EDT Generic External Data Provider LAB BLOOD ORDERAB LES Final Result Performing Organization Address [facility] Co de Phone Number [facility] [address] [place] [phone] * (ABNORMAL) Prothrombin Time-INR (04/02/2025 1:27 PM EDT) Prothrombin Time 14.0(H) 10.9 - 12.4 SEC [facility] INTERNATIONAL NORM RATIO 1.2(H) 0.9 - 1.1 [facility] Comment:INTERNATIONAL NORMAL IZED RATIO (INR) [...] LES Final Result Performing Organization Address [facility] Co de Phone Number [facility] [address] [place] [phone] * Type and screen (04/02/2025 1:27 PM EDT) Blood Type ON [facility] Antibody Screen NEGATIVE [facility] 04/02/2025 1:27 PM EDT 04/02/2025 1:40 PM EDT Narrative [facility] - 04/02/2025 2:20 PM EDT WITNESSED BY [place].Spec expiration changed by JIMMY on 04/02/25Reason: PAT SSSNURSING:Call Blood Bank ([phone]) to band patient on admission.Type and Screen in effect until 2300 on 04/06/25. us Generic External Data Provider LAB BLOOD BANK TE ST ORDERABLES Final Result [facility] [address] [place] [phone] * (ABNORMAL) Comprehensive Metabolic Panel (04/02/2025 1:27 PM EDT) Sodium 141 135 - 145 mmol/L [facility] Potassium 3.5 3.3 - 5.1 mmol/L [facility] Chloride 106 96 - 108 mmol/L [facility] Carbon Dioxide 27 22 - 29 mmol/L [facility] Anion Gap 12 12 - 20 [facility] Urea Nitrogen (BUN) 17(H) 9 - 16 mg/dL [facility] Creatinine, Serum 0.51 0.5 - 1.4 mg/dL [facility] Creatinine Clr Calc Pharmacy 135.2 [facility] Comment:Provided height and weight: 163.83 cm,70.125 kg.eGFR (calculated from the MDRD study equation) and eCrCl(calculated from the Cockcroft-Gault equation) are based ondifferent parameters and may not yield comparable results.If eCrCl result is absurd, please check patient'sheight/weight. Estimated Glomerular Filt Rate >60 [facility] Comment:Chronic Kidney Disea se: Estimated GFR < 60 mL/min/1.53a2Gaywog Kidney Disease: Estimated GFR < 15 mL/min/1.73m2 Glucose 78 60 - 115 mg/dL [facility] Calcium 9.2 8.4 - 10.2 mg/dL [facility] Bilirubin, Total 0.7 0.0 - 1.0 mg/dL [facility] Aspartate Amino Transferase 25 5 - 31 U/L [facility] Alanine Aminotransferase 24 0 - 31 U/L [facility] Total Protein 6.9 6.5 - 8.0 g/dL [facility] Albumin Level 4.5 3.5 - 5.0 g/dL [facility] Alkaline Phosphatase 72 39 - 117 U/L [facility] 04/02/2025 1:27 PM EDT 04/02/2025 2:14 PM EDT us Generic External Data Provider LAB BLOOD ORDERAB LES Final Result [facility] [address] [place] [phone] * BI US Breast Limited Right (01/22/2025 11:06 AM EDT) Anatomical Region Laterality Modality Breast Right Ultrasound 01/22/2025 11:0 6 AM EDT Narrative 01/22/2025 11:38 AM EDT [address] [place] [address] Ultrasound Report Signed Patient: Aurora Ferrara MR#: [id number] : 1980 Acct:[id number] Age/Sex: 44 / F ADM Date: 01/22/25 Loc: HO.MAMMO Attending Dr: Stan Marks CNM Ordering Physician: STAN MARKS CNM Date of Service: 01/22/25 Procedure(s): US breast RT limited Accession Number(s): [id number] cc: STAN MARKS CNM EXAMINATIONS: 1. MM [...] 01/22/25 1135 DD/ 1106 TD/TT: 01/22/25 1120 Plastic And Reconstructive Surgeon: Procedure Note Donotuseinterpreter, Image - 01/22/[facility] [address] [place] [address] Ultrasound Report Signed Patient: Aurora Ferrara [facility]#: [id number] : 1980Acct:[id number] Age/Sex: 44 / FADM Date: 01/22/25 Loc: HO.MAMMO Attending Dr: Stan Marks CNM Ordering Physician: STAN MARKS CNM Date of Service: 01/22/25 Procedure(s): US breast RT limited Accession Number(s): [id number] cc: STAN MARKS CNM EXAMINATIONS: 1. MM [...] 01/22/25 1135 DD/ 1106 TD/TT: 01/22/25 1120 Plastic And Reconstructive Surgeon: us Stan Marks CNM IMG US PROCEDURES Final R esult * HPV DNA, Low/High Risk (01/05/2025 2:20 PM EDT) HPV High Risk Negative Negative [facility] HPV Genotype 16 Negative Negative [facility] HPV Genotype 18 Negative Negative [facility] Comment:HPV testing performe d at [facility] (CLIA#[id number]), [address] [place] [phone].Testing for HPV was performed using the [employer] [...] EDT 01/06/2025 7:35 AM EDT Stan Marks [facility] BLOOD ORDERABLES Delphine nishant Result [facility] [address] [place] [phone] * Pap Smear (01/05/2025 2:20 PM EDT) Swab Cervix uteri structure / Unknown 01/05/2025 2:20 PM EDT 01/06/2025 7:35 AM EDT Narrative [facility] - 01/19/2025 8:59 AM EDT ----- ------- Name: Aurora Ferrara Age/Sex: 44/F : 1980 Unit#: [id number] Attend Dr: STAN MARKS CNM Re01/05/25 Status: [facility] REF Location: [facility] Disch: ----- ------- SPEC : [id number] RECD: 01/06/25 STATUS: NELI JOHN NUM: [id number] ROYCE: 01/05/[address] [facility] [address]: STAN MARKS ENTERED: 01/06/25 SP TYPE: [...] and HPV testing will be performed at [facility] (CLIA #[id number]), [address] [place] [address]. Testing for HPV was performed using the [...] detected. All professional services are performed by [facility] ([address] [place] [address], [place] [id number]; ; CLIA #[id number]). The PAP Test is a screening procedure with the inherent possibility of both false negative and false positive results. Results should be interpreted in the context of historic and current clinical findings. Reliability of the PAP Test is enhanced by performing the test on a regular repetitive basis. CONTINUED ON NEXT PAGE ----- ------- Name: Aurora Ferrara Age/Sex: 44/F : 1980 Unit#: [id number] Attend Dr: STAN MARKS CNM Re01/05/25 Status: [facility] REF Location: [facility] Disch: ----- ------- SPEC : [id number] RECD: 01/06/25 STATUS: NELI JOHN NUM: [id number] ROYCE: 01/05/25-14[address] [facility] [address]: STAN MARKS CNM ENTERED: 01/06/25 SP TYPE: Pap Kamini HURST DR: ORDERED: Pap Smear ----- ------- Signed (signature on file) Master Galullo, CT (ASCP) 01/19/25 0859 ----- ------- END OF REPORT us Stan Marks [facility] CYTOLOGY ORDERABLES F inal Result Performing Organization Address City/[facility] Co de Phone Number [facility] [address] [place] [phone] * Lipid Panel, Standard (11/13/2024 9:53 AM EDT) Triglycerides 46 <150 mg/dL [facility] Comment:Desirable Triglyceri de: less than 150 mg/dLBorderline High Triglyceride 150-199 mg/dLHigh Triglyceride: 200-499 mg/dLVery High Triglyceride: greater than or equal to 5OO mg/dL Cholesterol 172 <200 mg/dL [facility] Comment:Desirable Cholestero l: less than 200 mg/dLBorderline High Cholesterol: 200-239 mg/dLHigh Cholesterol: greater than 239 mg/dL LDL Cholesterol Calculated 94 <100 mg/dL [facility] Comment:Desirable LDL: less than 100 mg/dLNear Optimal/Above Optimal LDL: 110- 129 mg/dLBorderline High LDL: 130-159 mg/dLHigh LDL: 160-189 mg/dLVery High LDL: greater than or equal to 190 mg/dL HDL Cholesterol 69 >40 mg/dL [facility] Comment:Desirable HDL: great er than 40 mg/dL Note: This HDL assay may give artificially low results in patients with liver disease. 11/13/2024 9:53 AM EDT 11/13/2024 9:53 AM EDT Generic External Data Provider LAB BLOOD ORDERAB LES Final Result Performing Organization Address City/State/[facility] Co de Phone Number [facility] [address] [place] [phone] * Hepatitis C Antibody with Reflex to HCV, RNA, Quantitative, Real-Time PCR (04/09/2024 12:15 PM EDT) Hepatitis C Antibody Nonreactive Nonreactive [facility] Comment:Antibodies to HCV no t detected; does not exclude early acuteHCV infection. Blood Venous blood specimen / Unknown 04/09/2024 12:15 PM EDT 04/09/2024 1:17 PM EDT us Magaly Maldonado MD LAB BLOOD ORDERABLES Final Result Performing Organization Address [facility] Co de Phone Number [facility] [address] [place] [address] [phone] * HIV-1/2 Antigen and Antibodies, Fourth Generation, with Reflexes (04/09/2024 12:15 PM EDT) Pathologist [facility] HIV AB/AG Nonreactive Nonreactive [facility] Comment:HIV-1 p24 Ag and/or HIV-1/HIV-2 Ab not detected.A test result that is nonreactive does not exclude thepossibility of exposure to or infection with HIV-1 and/orHIV-2. Nonreactive results in this assay for individualswith prior exposure to HIV-1 and/or HIV-2 may be due toantigen and antibody levels that are below the limit ofdetection of this assay.The [employer] HIV Ag/Ab Combo assay result andsupplemental assay results should be interpreted inconjunction with the patient's clinical presentation,history and other laboratory results. If the results areinconsistent with clinical evidence, additional testing issuggested to confirm the result. Blood Venous blood specimen / Unknown 04/09/2024 12:15 PM EDT 04/09/2024 1:17 PM EDT us Magaly Maldonado MD LAB BLOOD ORDERABLES Final Result [facility] [address] [place] [phone] from Last 3 Months or Most Recently Relevant to Health Maintenance Insurance [facility] C3 Care Teams Lead Javascript Developer Relationship Specialty Start Date End Date Magaly Mcrae MD [address] [place] [phone] PCP - General Family Medicine 02/19/18 Anne Marie Reza Superintendent StationsMorgue Keeper 04/14/25
== END 2025-05-31 12:20 | disposition home or self-care (01) ==
LOC: HO.HBS 11:23
PROVIDERS: PCP Advanced Practice Midwife; Visit Provider Nurse Practitioner
DX: M79.3 Panniculitis, unspecified (principal); Z98.890 Other specified postprocedural states
CPT/HCPCS: 99024

== ENCOUNTER → 2025-05-31 11:22 | Outpatient (BNVA) | payer MEDICAID, SELFPAY | PROVIDERS: PCP Advanced Practice Midwife; Visit Provider Nurse Practitioner | DX: Z48.815 Encounter for surgical aftercare following surgery on the digestive system (principal); Z98.890 Other specified postprocedural states | CPT/HCPCS: 99212 ==

== ENCOUNTER 2025-06-07 11:35 | Outpatient (AMB) | payer MEDICAID, SELFPAY ==
--- NOTE | 2025-06-07 11:45 | MHC.NURWM ---
Intake VS Expanded 06/07/25 12:01 BP 107/59 L Blood Pressure Location Rt brachial Blood Pressure Position Sitting Pulse 62 Pulse Source Pulse Oximeter Temp 98.2 F Temperature Source Temporal Artery Scan Pulse Oximetry 95 Oxygen Delivery Method Room Air Height 5 ft 4.5 in Weight 141 lb 12.8 oz BMI 24.0 Body Fat % 28.3 Body Fat Mass 40.2 Fat Free Mass 101.6 Visceral Fat Rating 4.0 Body Water % 51.2 Body Water Mass 72.6 Muscle Mass/Score 96.6 Basal Metabolic Rate/Score 1,368 Intake Visit Reasons: OV Panniculectomy 04/06/25 Allergies No Known Allergies Allergy (Verified 05/31/25 11:55) Coding
[2025-06-07 12:01] VITALS: BP 107/59; PULSE 62; TEMP 36.8; O2SAT 95; BMI 24.0
[2025-06-07 12:11] VITALS: BMI 24.0
--- NOTE | 2025-06-07 12:11 | A.OFFVIS_ITS ---
VS Expanded 06/07/25 12:01 06/07/25 12:11 BP 107/59 L Blood Pressure Location Rt brachial Blood Pressure Position Sitting Pulse 62 Pulse Source Pulse Oximeter Temp 98.2 F Temperature Source Temporal Artery Scan Pulse Oximetry 95 Oxygen Delivery Method Room Air Height 5 ft 4.5 in Weight 141 lb 12.8 oz BMI 24.0 24.0 Body Fat % 28.3 Body Fat Mass 40.2 Fat Free Mass 101.6 Visceral Fat Rating 4.0 Body Water % 51.2 Body Water Mass 72.6 Muscle Mass/Score 96.6 Basal Metabolic Rate/Score 1,368 Intake Visit Reasons: OV Panniculectomy 04/06/25 Recreation Attendant Supervisor Required: Yes Recreation Attendant Supervisor Services: Recreation Attendant Supervisor Present Recreation Attendant Supervisor Name: Yaneth Duarte [phone] Information Interpreted: clinical only Allergies No Known Allergies Allergy (Verified 06/07/25 12:11) Medication List - Last Reconciled 06/07/25 by Denise Everett CNP amoxicillin-pot clavulanate 875-125 mg 1 tab PO BID 21 days bupropion HCl SR 200 mg PO QAM cholecalciferol (vitamin D3) (Vitamin D3) 25 mcg PO DAILY docusate sodium (Colace) 100 mg PO DAILY fluticasone propionate 50 mcg/actuation 1 spray intranasal BID hydroxyzine HCl 25 mg PO BID PRN levofloxacin 500 mg PO DAILY dyojbrzfkdab-fti-qrpb-FA-vit K 45 mg iron- 800 mcg-120 mcg (Bariatric Multivitamins) 1 cap PO .daily in evening ondansetron 4 mg PO Q8-12H PRN sumatriptan succinate 25 mg PO QID PRN trazodone 25 - 50 mg PO BEDTIME PRN HPI Comments Details: 44 year old woman s/p panniculectomy 04/06/2025. she is also s/p LSG with diaphragmatic hernia repair 12/28/2020. On 04/28/2025, patient presented to office with reports of +odor x4 days and green drain output x1 day. She denied fevers at home but feels network engineer administrator abdomen. Thought pain had increased in abdomen. Fluid from her drain was sent to the lab, and she was referred to the ER for CT abdomen and blood work. Lab and imaging results below. ABX was changed from Keflex BID to Doxycycline BID and Levofloxacin QD. On 04/30/2025, she presented to office for recheck of surgical site and flushing of the drain. She was flushed with a total of 20cc 50% saline/50% hydrogen peroxide. On 05/03/2025, she presented for recheck and repeat flushing. She reported drain output was 10cc each day over the weekend. She denied any odor or green colored output since flushing. Increased abd pain/discomfort in this area, to the point that she was given prn Oxycodone, which was helpful. Denied constitutional symptoms or feeling ill/feverish. On 05/05/2025, she presented for recheck and repeat flushing. She reported drain output 20cc the other day, and 10cc that morning. No green, no odor. Denied constitutional symptoms. Still taking ABX as prescribed. No pain. On 05/10/2025, her drain outputs were 1-5mL per day on her output record. No green, no odor. Denied constitutional symptoms. Still taking ABX as prescribed. No pain. Fluid from her SHARYN drain was sent for gram stain and cultures. on 05/12/2025, she was doing well. Still had < 5mL output per day. No odor or infectious symptoms. Still taking ABX. Eager to get drain removed. Also wanted to advance her diet since she was still on liquids only. She was allowed to resume normal post-op panniculectomy diet previously given by Dr. Tan. She was educated to change her SHARYN drain from bulb suction to gravity. On 05/19/2025, she was doing well. Some intermittent nausea here and there. Had not emptied drain x1 week and left it to gravity per instructions. Her drain was removed in the office. Her antibiotics were adjusted, she stopped Doxycycline and added Augmentin, and was to continue Levofloxacin. Her zofran was refilled for intermittent nausea. On 05/26/2025, she reported doing well. No constitutional symptoms. No incisional issues, drainage, or purulent discharge. Taking Levofloxacin and Augmentin as prescribed. Some feelings of nausea, tolerable with zofran prn. No vomitting. Tolerating meal plan. [place] mild abd pain when she pressed along left side of incision. At last visit on 05/31/2025, she was doing well. No constitutional or incisional issues. No abdominal pain, reflux, or constipation. Nausea improved. Wearing a compressive body suit. she reported a change to meal plan. Having 4 FF chicken for lunch some days. Noticed a 2 lb weight increase. Taking ABX as prescribed. Today, she is doing well. No issues with incision, states it seems closed. Leaving open to air. Still taking ABX as prescribed. Still wearing binder. Mostly compliant with meal plan, but still sometimes has the chicken at lunch. She is becoming tired of the same flavors and rigidity of meal plan. Wants 1 scoop instead of 1/2 and meat at lunch. Meal plan per Dr. Tan for post op: one Isopure zero shake (mix HALF scoop with 8oz almond milk) at 9am-11am, one Atkins protein bar at 12pm-2pm, another Isopure zero shake (mix HALF scoop with 8oz almond milk) at 3pm-5pm, one meal at 6pm (4 forks of protein and 4 forks of salad or vegetables) and another Atkins protein bar at 8pm-10pm. The 2 lbs weight gain at last visit has resolved and she is back down to 141.8 lbs. Meal Plan: Isopure protein shake 1/2 scoop per 8oz - 3x per day 1 Pure or Atkins protein bar Lunch: sometimes has 4 FF chicken Dinner: 4 FF chicken, 4 FF veggies Exercise Plan: walking [facility] Medical History Postgastrectomy malabsorption GERD (gastroesophageal reflux disease) Depression Hx of bipolar disorder Panic attack Surgical History History of sleeve gastrectomy History of endometrial ablation H/O parathyroidectomy History of esophagogastroduodenoscopy (EGD) History of tonsillectomy and adenoidectomy Hx of tubal ligation Family History Mother Heart disease Arthritis Father Liver disease Herniated disc Brother No problems noted. Brother No problems noted. Brother No problems noted. Sister Diabetes Sister Migraine Sister HIV disease Sister No problems noted. Sister No problems noted. Daughter Asthma Son No problems noted. Paternal Aunt Breast cancer Social History Household Members: Family Housing: Apartment Are you a primary school child care attendant to a significant other at home: No Do you presently have visiting nurse or other home services: No 75 years or older and lives alone: No Alcohol intake: never Patient Tobacco Use Status: Former Tobacco user Tobacco use type: Cigarette Substance Use Type: Marijuana service: No Current occupational status: unemployed Female Reproductive History Menstrual Age of Menarche: 13 Physical Exam Vital Signs: Last Vital Signs Temp 98.2 F 06/07/25 12:01 Pulse 62 06/07/25 12:01 BP 107/59 L 06/07/25 12:01 Pulse Ox 95 06/07/25 12:01 Oxygen Delivery Method Room Air 06/07/25 12:01 BMI result Body Mass Index 24.0 Const General: cooperative, healthy appearing, comfortable and no acute distress Orientation/consciousness: patient oriented x3 GI Other: abd soft, flat, non-distended. Soft to palpation, no obvious fluctuation or abscess noted. No tenderness. Panniculectomy incision and umbilicus are healed well without erythema or open areas. Appears much improved compared to prior visits. Neuro General: patient oriented x3 Results Reviewed Results Reviewed: Results Reviewed: CT abdomen/pelvis 04/28/2025 reports: IMPRESSION: 1. No acute findings in the abdomen or pelvis. 2. Subcutaneous stranding in the anterior subcutaneous abdominal fat related to recent panniculectomy. A surgical drain is in place in the inferior anterior abdominal wall. Just superior and right lateral of the umbilicus, just anterior to the rectus sheath, there is a 6 mm nonenhancing fluid collection which may represent a seroma. This does not appear definitively drainable. Fluid collected from SHARYN drain 04/28/2025: Creatinine 1.3 Albumin 1 Glucose < 2 Amylase 38 Bilirubin 2.7 Blood draw 04/28/2025: WBC 4.9 Cultures as of 05/03/2025: Organism 1 Pseudomonas aeruginosa Quantity 4+ Organism 2 Enterobacter cloacae complex Quantity 4+ Organism 3 Methicillin Res Staph Aureus Quantity 4+ Susceptible to tetracycline and ciprofloxacin Fluid collected from SHARYN drain 05/10/2025: Gram stain Final 05/10/25-6361 Gram stain results: No polys 4+ Gram-negative rods Routine Culture Final 05/23/25-0885 Organism 1 Pseudomonas aeruginosa Quantity 3+ Organism 2 Gram negative noe Quantity 4+ Result: Brevundimonas diminuta B.diminuta INT SUZANNE CEFOTAXIME I 16 CEFTAZIDIME R >16 CEFTRIAXONE I 32 CIPROFLOXACIN R >2 LEVOFLOXACIN I 4 TETRACYCLINE R >8 TRIMETHOPRIM/SULFA S <0.5/9.5 P aerugino M.I.C. RX --------- --- Cefepime 0.5 S Ciprofloxacin >=4 R Gentamicin <=1 S Meropenem 1 S Piperacillin/Tazobactam <=4 S Assessment & Plan Assessment & Plan (1) S/P panniculectomy: Code(s): Z98.890 - Other specified postprocedural states Category: Surgical Plan: Plan: - Incisions are healing well. She is using scar cream, which is fine, since there are no open areas. - Allow light exercise such as walking, and encouraged to start light cardio exercise. Light weights with arms fine. No abdominal exercises or heavy lifting x3 months postop. - Finish levofloxacin and Augmentin on 06/09, for a total of 3 weeks of this combination. - We discussed meal plan at length. She can change brands/flavors at her discretion, but keep the windows laid out by Dr. Tan with a protein goal of at least 58G per day. His plan was 71G, and she gained weight at last visit, so I recommended aiming for the middle (63G or so). - Call office for any concerns/questions, S&S infection Follow up: 1 month
--- OUTSIDE RECORDS SUMMARY | 2025-06-07 13:36 | XMS_ITS | Encounter Summary ---
Author Organization [facility] Address [address] [place] [address] Care Team Providers Care Slot Manager Name Role Phone Thu Tam MD Primary Care Provider + [phone] Encounter Details Date Type Department Care Team (Late st Contact Info) Description 02/04/2025 Lab Requisition [facility] [address] [place] [phone] Bettina Sanford MD [address] [facility] [address] [place] [phone] Abnormal uterine and vaginal bleeding, unspecified Social [...] No endometrium identified 02/05/2025 1:27 PM EDT [facility] at 1327 EDT Clinical Information Abnormal uterine bleeding 02/05/2025 1:27 PM EDT [facility] Gross Description A. Endometrium, biopsy: Labeled with the patient's name and information. Received in formalin is a 1.1 x 0.8 x 0.2 cm aggregate of irregular pink-red soft tissue fragments admixed with mucoid substance which is submitted in toto in a mesh bag in one cassette, multiple pieces, x 2. LENARD 02/05/2025 1:27 PM EDT [facility] Disclaimer Unless otherwise specified, all tissue is 10% NB formalin fixed and paraffin embedded. 02/05/2025 1:27 PM EDT [facility] Tissue Endometrial structure / Unknown 02/04/2025 02/04/2025 12:36 PM EDT us Bettina Sanford MD LAB PATHOLOGY ORDERABLES Final Result [facility] [address] [place] [address], documented in this encounter Visit Diagnoses Diagnosis Abnormal uterine and vaginal bleeding, unspecified documented in this encounter Care Teams Slot Manager Relationship Specialty Start Date End Date Thu Tam MD [address] [place] [phone] PCP - General Internal Medicine 03/13/24 documented as of this encounter
--- OUTSIDE RECORDS SUMMARY | 2025-06-07 13:36 | XMS_ITS | Encounter Summary ---
Author Organization [employer] Address [address] [facility] 7 [place] [address] Care Team Providers Care Enforcement Safety Officer Name Role Phone Magaly Mcrae MD Primary Care Provide r Reason for Visit * Reason Onset Date Comments Referral 04/02/2025 Encounter Details Date Type Department Care Team ([facility] st Contact Info) Description 04/02/2025 Telephone [facility] [address] [place], [place] [phone] Magaly Mcrae MD [address] [place], [place] [phone] Referral Social History Tobacco Use Types Packs/Day [...] EDT Please place [facility], original referral for eczema [...] is scheduled for 01/01/2026. Contact pt at [phone] documented in this encounter Plan of Treatment Upcoming Encounters Date Type Department Care Team (Late st Contact Info) Description 06/23/2025 3:30 PM EST Office Visit [facility] [address] [place] [address] Magaly Mcrae MD [address] [place], [place] [phone] documented as of this encounter Visit Diagnoses Not on filedocumented in this encounter Additional Health Concerns Assessment Noted Time PHQ-9 Depression Total Score: 15 025 11:32 AM EDT documented as of this encounter Care Teams Enforcement Safety Officer Relationship Specialty Start Date End Date Magaly Mcare MD [address] [place] [address] PCP - General Family Medicine 02/19/18 Anne Marie Reza Tanning Solution MakerCentral Scheduler 04/14/25 documented as of this encounter
--- OUTSIDE RECORDS SUMMARY | 2025-06-07 13:36 | XMS_ITS | Encounter Summary ---
Author Organization [employer] Address [address] [facility] 7t [place] [address] Care Team Providers Care Unit Reactor Operator Name Role Phone Magaly Mcrae MD Primary Care Provide r Encounter Details Date Type Department Care Team ([facility] st Contact Info) Description 04/29/2025 Results Follow-Up [facility] [address] [place], [place] [phone] Diya York CN [address] [place] [address] CT Abdomen Pelvis w/ Contrast, CBC auto [...] Description 06/23/2025 3:30 PM EST Office Visit [facility] [address] [place] [address] Magaly Mcrae MD [address] [place] [address] documented as of this encounter Visit Diagnoses Not on filedocumented in this encounter Additional Health Concerns Assessment Noted Time PHQ-9 Depression Total Score: 12 025 3:36 PM EST documented as of this encounter Care Teams Unit Reactor Operator Relationship Specialty Start Date End Date Magaly Mcrae MD [address] [place] [address] PCP - General Family Medicine 02/19/18 Anne Marie Reza Job Press FeederMissing Persons Investigator 04/14/25 documented as of this encounter
--- OUTSIDE RECORDS SUMMARY | 2025-06-07 13:36 | XMS_ITS | Encounter Summary ---
Author Organization [employer] Address [address] [facility] 7t [place] [address] Care Team Providers Care Inset Cutter Name Role Phone Magaly Mcrae MD Primary Care Provide r Encounter Details Date Type Department Care Team (Latest Contact Info) Description 04/05/2025 Results Follow-Up [facility] [address] [place], [place] [phone] Diya York CNM [address] [place] [address] Prothrombin Time-INR, Partial Thromboplastin Time, Activated (APTT), [...] 06/23/2025 3:30 PM EST Office Visit [facility] [address] [place] [phone] Magaly Mcrae MD [address] [place] [address] documented as of this encounter Visit Diagnoses Not on filedocumented in this encounter Additional Health Concerns Assessment Noted Time PHQ-9 Depression Total Score: 15 025 11:32 AM EDT documented as of this encounter Care Teams Inset Cutter Relationship Specialty Start Date End Date Magaly Mcrae MD [address] [place] [phone] PCP - General Family Medicine 02/19/18 Anne Marie Reza ClassifierCollet Maker 04/14/25 documented as of this encounter
--- OUTSIDE RECORDS SUMMARY | 2025-06-07 13:36 | XMS_ITS | Encounter Summary ---
Author Organization [employer] Address [address] [facility] [address] [place] [address] Care Team Providers Care Director Of Reimbursement Name Role Phone Magaly Mcrae MD Primary Care Provide r Encounter Details Date Type Department Care Team ([facility] st Contact Info) Description 02/13/2024 Telephone [facility] [address] [place], [place] [phone] Magaly Mcrae MD [address] [place], [place] [phone] Social History Tobacco Use Types Packs/Day Years [...] Description 06/23/2025 3:30 PM EST Office Visit [facility] [address] [place] [phone] Magaly Mcrae MD [address] [place] [phone] documented as of this encounter Visit Diagnoses Not on filedocumented in this encounter Additional Health Concerns Assessment Noted Time PHQ-9 Depression Total Score: 11 023 3:07 PM EDT documented as of this encounter Care Teams Director Of Reimbursement Relationship Specialty Start Date End Date Magaly Mcrae MD [address] [place] [phone] PCP - General Family Medicine 02/19/18 Anne Marie Reza Surveillance OperatorCorporate Counselor 04/14/25 documented as of this encounter
--- OUTSIDE RECORDS SUMMARY | 2025-06-07 13:36 | XMS_ITS | Clinical Summary ---
Author Organization [address] [facility] Address [address] [place] [address] Phone Care Team Providers Care Heel Stiffener Name Role Phone Thu Tam MD Primary Care Provider + [phone] Allergies No known active allergies Medications DICLOFENAC [...] topic Insurance MEDICAID - [place] Care Teams Heel Stiffener Relationship Specialty Start Date End Date Thu Tam MD [address] [place] [phone] PCP - General Internal Medicine 03/13/24
--- OUTSIDE RECORDS SUMMARY | 2025-06-07 13:36 | XMS_ITS | Clinical Summary ---
Author Organization [employer] Address [address] [facility] [address] [place] [address] Care Team Providers Care Health And Safety Trainer Name Role Phone Magaly Mcrae MD Primary [...] Plan (02/07/2024 1:00 PM EDT): Refer to [facility]. Chronic pain of left knee 10/24/2022 Assessment [...] seek help PLAN: 1. Follow up with [facility]: Not recommended for follow-up 2. Patient goal is to obtain her meds and become stable. 3. Behavioral Recommendations a. Ind. Therapy b. Med. Management c. Coping skills provided. Assessment & Plan (10/25/2022 4:25 PM EDT): Counseling done BN referral I will start her again on Wellbutrin 150mg daily Hypercalcemia 04/10/2012 Encounters Date Type Department Care Team Description 05/13/2025 Telephone [facility] MEDICINE [address] [place] [phone] Magaly Mcrae MD Referral 05/10/2025 Orders Only GENERIC EXTERNAL DATA DEPARTMENT Provider, Generic External Data 04/29/2025 Results Follow-Up [address] [address] Abdomen Pelvis w/ Contrast, CBC auto differential, Hepatic Function Panel, Additional followed-up results: 13 04/28/2025 Orders Only GENERIC EXTERNAL DATA DEPARTMENT Provider, Generic External Data 04/17/[address] [address] Magaly Mcrae MD Seasonal allergic rhinitis, unspecified trigger 04/14/2025 Telephone [facility] MED & PEDS [address], [place] [phone] Magaly Mcrae MD Care Coordination (ICP Care Plan) 04/13/2025 3:15 PM EST Office Visit [facility] MEDICINE [address] [place] [address] Magaly Mcrae MD Encounter for preventive care (Primary Dx); Dietary counseling; Exercise counseling; Post-surgical hypoparathyroidism; Irritant contact dermatitis, unspecified trigger 04/13/2025 Travel 04/12/[address] [address] Magaly Mcrae MD Chart Prep 04/06/2025 Orders Only GENERIC EXTERNAL DATA DEPARTMENT Provider, Generic External Data 04/06/2025 Patient Outreach [facility] MED [facility] PEDS [address], [place] [phone] Magaly Mcrae MD Pre-visit Planning ([facility] unable to reach [facility]) 04/05/[address] [facility] [address], [place] [phone] Magaly Mcrae MD tammy recall 04/05/2025 Results Follow-Up [address] [address] Stan Marks, CNM Prothrombin Time-INR, Partial Thromboplastin Time, Activated (APTT), CBC auto differential, Additional followed-up results: 2 04/02/2025 Orders Only [address] [phone] Magaly Mcrae MD Eczema, unspecified type (Primary Dx) 04/02/[address] [phone] Magaly Mcrae MD Referral from Last 3 [...] Description 06/23/2025 3:30 PM EST Office Visit [facility] MEDICINE [address] [place], [place] [phone] Magaly Mcrae MD [address] [place] [address] Health Maintenance Due Date Last Done Comments [...] 05/10/2025 12:45 PM EST Comment:Abdom Fld Narrative [facility] - 05/23/2025 9:25 AM EST Abdominal swab Gram stain results: No polys 4+ Gram-negative rods Abdominal swab Pseudomonas aeruginosa Quant Org ID 3+ Gram negative noe Quant Org ID 4+ ORGANISM #2 SENT TO REFERENCE LAB FOR IDENTIFICATION AND SUSCEPTIBILITY TESTING -- ORGANISM #2 AEROBIC BACTERIUM ID AND SUSCEPTIBILITY Micro Number: [id number] Test Status: Final Specimen Source: Abdominal fluid [...] = See Therapy Comment Testing Performed by: [employer] [address] [place] [address], [place] [address] [address] Attendant: Kei Nicole M.D. Pseudomonas aeruginosa: Cefepime 0.5(S) Pseudomonas aeruginosa: Ciprofloxacin >=4(R) Pseudomonas aeruginosa: Gentamicin <=1(S) Pseudomonas aeruginosa: Meropenem 1(S) Pseudomonas aeruginosa: Piperacillin/Tazobactam <=4(S) Specimen Source: Abdominal Fluid us Generic External Data Provider HISTORICAL/NON OR DERABLE LABS Final Result [facility] [address] [place] [phone] * CT Abdomen Pelvis w/ Contrast (04/28/2025 4:35 PM EST) Anatomical Region Laterality Modality Body, Pelvis, Abdomen Computed T omography 04/28/2025 4:35 PM EST Narrative 04/28/2025 5:04 PM EST [address] [address] [address] Scan Report Signed Patient: Aurora Ferrara MR#: [id number] : 1980 Acct:[id number] Age/Sex: 44 / F ADM Date: 04/28/25 Loc: HO.ED Attending Dr: Ordering Physician: Luisa Joyner Date of Service: 04/28/25 Procedure(s): CT abdomen pelvis w IV con Accession Number(s): [id number] cc: Luisa Joyner; STAN MARKS [facility] Report Number: [id number]: Total DLP = 475.00 mGy-cm Reason for [...] 04/28/25 1702 DD/ 1635 TD/TT: 04/28/25 1647 Candy Spreader: Procedure Note Donotuseinterpreter, Image - 04/28/[address] [address] [address] Scan Report Signed Patient: Aurora Ferrara [facility]#: [id number] : 1980Acct:[id number] Age/Sex: 44 / FADM Date: 04/28/25 Loc: HO.ED Attending Dr: Ordering Physician: Luisa Joyner Date of Service: 04/28/25 Procedure(s): CT abdomen pelvis w IV con Accession Number(s): [id number] cc: Luisa Joyner; STAN MARKS [facility] Report Number: [id number]: Total DLP = 475.00 mGy-cm Reason for [...] 04/28/25 1702 DD/ 1635 TD/TT: 04/28/25 1647 Candy Spreader: [facility] External Provider IMG CT PROCEDURES Final Result * Lactic Acid (04/28/2025 12:47 PM EST) Lactic Acid 1.3 0.5 - 2.0 mmol/L [facility] 04/28/2025 12:4 7 PM EST 04/28/2025 12:51 PM EST Generic External Data Provider LAB BLOOD ORDERAB LES Final Result Performing Organization Address [facility] Co de Phone Number [facility] [address] [place] [phone] * Blood Culture (First) (04/28/2025 12:36 PM EST) Blood Venous blood specimen / Unknown 04/28/2025 12:36 PM EST 04/28/2025 12:40 PM EST Comment:Blood Narrative [facility] - 05/03/2025 2:41 PM EST Blood Culture (First) No growth after 5 days. Specimen Source: Blood Generic External Data Provider LAB MICROBIOLOGY - GENERAL ORDERABLES Final Result Performing Organization Address City/[facility] Co de Phone Number [facility] [address] [place] [phone] * Blood Culture (Second) (04/28/2025 12:36 PM EST) Blood Venous blood specimen / Unknown 04/28/2025 12:36 PM EST 04/28/2025 12:40 PM EST Comment:Blood Narrative [facility] - 05/03/2025 2:41 PM EST Blood Culture (Second) No growth after 5 days. Specimen Source: Blood Generic External Data Provider LAB MICROBIOLOGY - GENERAL ORDERABLES Final Result Performing Organization Address City/[facility]/ZIP Co de Phone Number [facility] [address] [place] [address] [phone] * CBC auto differential (04/28/2025 12:36 PM EST) Only the most recent of2 resultswithin the time period is included. White Blood Count 4.9 4.8 - 10.8 X10*3/uL [facility] Red Blood Count 4.34 4.20 - 5.50 X10*6/uL [facility] Hemoglobin 13.5 12.0 - 16.0 g/dl [facility] Hematocrit 39.7 37.0 - 47.0 % [facility] Mean Corpuscular Volume 91.5 80.0 - 98.0 fL [facility] Mean Corpuscular Hemoglobin 31.1 27.0 - 33.0 pg [facility] Mean Corpuscular HGB Conc 34.0 31.0 - 35.0 g/dl [facility] Red Cell Distribution Width 11.3 11.0 - 16.0 % [facility] Platelet Count 280 160 - 400 X10*3/uL [facility] Mean Platelet Volume 9.5 9.4 - 12.3 fL [facility] Neutrophils Percent Auto 64.6 45 - 73 % [facility] Imm Gran Pct Auto 0.2 0.0 - 0.4 % [facility] Lymphocytes Percent Auto 25.9 20 - 40 % [facility] Monocytes Percent Auto 7.9 2 - 11 % [facility] Eosinophils Percent Auto 1.0 0 - 4 % [facility] Basophils Percent Auto 0.4 0 - 2 % [facility] NRBC Pct Auto 0.0 0.0 - 0.2 /100WBC [facility] Neutrophils Absolute Auto 3.2 2.0 - 8.3 x10*3/uL [facility] Imm Gran Abs Auto 0.01 0.00 - 0.03 X10*3/uL [facility] Lymphocytes Absolute Auto 1.3 1.2 - 4.9 X10*3/uL [facility] Monocytes Absolute Auto 0.4 0.1 - 1.2 X10*3/uL [facility] Eosinophils Absolute Auto 0.1 0.0 - 0.4 X10*3/uL [facility] Basophils Absolute Auto 0.0 0.0 - 0.2 X10*3/uL [facility] NRBC Abs Auto 0.000 0.0 - 0.012 X10*3/uL [facility] 04/28/2025 12:3 6 PM EST 04/28/2025 12:40 PM EST Generic External Data Provider LAB BLOOD ORDERAB LES Final Result Performing Organization Address [facility] Co de Phone Number [facility] [address] [place] [phone] * hCG, Total, Quantitative (04/28/2025 12:36 PM EST) HCG Quantitative 4 mIU/mL [facility] Comment:Weeks post LMP Appro ximate hCG(Last Menstrual Period) Range (mIU/ml)3 - 4 weeks 9 - 1304 - 5 weeks 75 - 2,6005 - 6 weeks 850 - 20,8006 - 7 weeks 4000 - 100,2007 - 12 weeks 11,500 - 289,39342 - 16 weeks 18,300 - 137,79274 - 29 weeks (2nd trimester) 1,400 - 53,99394 - 41 weeks (3rd trimester) 940 - [...] ORDERAB LES Final Result Performing Organization Address [facility]/ZIP Co de Phone Number [facility] [address] [place] [phone] * Magnesium (04/28/2025 12:36 PM EST) Magnesium 2.2 1.6 - 2.6 mg/dL [facility] 04/28/2025 12:3 6 PM EST 04/28/2025 12:40 PM EST Generic External Data Provider LAB BLOOD ORDERAB LES Final Result Performing Organization Address City/[facility]/ZIP Co de Phone Number [facility] [address] [place] [phone] * Lipase (04/28/2025 12:36 PM EST) Pathologist [facility] Lipase 28 8 - 78 U/L [facility] 04/28/2025 12:3 6 PM EST 04/28/2025 12:40 PM EST Generic External Data Provider LAB BLOOD ORDERAB LES Final Result Performing Organization Address [facility] Co de Phone Number [facility] [address] [place] [phone] * (ABNORMAL) Hepatic Function Panel (04/28/2025 12:36 PM EST) Bilirubin, Total 0.7 0.0 - 1.0 mg/dL [facility] Bilirubin, Direct 0.2 0.0 - 0.5 mg/dL [facility] Aspartate Amino Transferase 29 5 - 31 U/L [facility] Alanine Aminotransferase 48(H) 0 - 31 U/L [facility] Total Protein 7.7 6.5 - 8.0 g/dL [facility] Albumin Level 4.8 3.5 - 5.0 g/dL [facility] Alkaline Phosphatase 84 39 - 117 U/L [facility] 04/28/2025 12:3 6 PM EST 04/28/2025 12:40 PM EST us Generic External Data Provider LAB BLOOD ORDERAB LES Final Result Performing Organization Address City/[facility]/ZIP Co de Phone Number [facility] [address] [place] [address] [phone] * (ABNORMAL) Basic Metabolic Panel (04/28/2025 12:36 PM EST) Sodium 139 135 - 145 mmol/L [facility] Potassium 3.8 3.3 - 5.1 mmol/L [facility] Chloride 104 96 - 108 mmol/L [facility] Carbon Dioxide 28 22 - 29 mmol/L [facility] Anion Gap 11(L) 12 - 20 [facility] Urea Nitrogen (BUN) 16 9 - 16 mg/dL [facility] Creatinine, Serum 0.53 0.5 - 1.4 mg/dL [facility] Creatinine Clr Calc Pharmacy 121.8 [facility] Comment:Provided height and weight: 165.1 cm,67.132 kg.eGFR (calculated from the MDRD study equation) and eCrCl(calculated from the Cockcroft-Gault equation) are based ondifferent parameters and may not yield comparable results.If eCrCl result is absurd, please check patient'sheight/weight. Estimated Glomerular Filt Rate >60 [facility] Comment:Chronic Kidney Disea se: Estimated GFR < 60 mL/min/1.13c8Rwnwel Kidney Disease: Estimated GFR < 15 mL/min/1.73m2 Glucose 83 60 - 115 mg/dL [facility] Calcium 9.7 8.4 - 10.2 mg/dL [facility] 04/28/2025 12:3 6 PM EST 04/28/2025 12:40 PM EST us Generic External Data Provider LAB BLOOD ORDERAB LES Final Result Performing Organization Address City/[facility]/ZIP Co de Phone Number [facility] [address] [place] [address] [phone] * Amylase, Peritoneal Fluid (04/28/2025 10:28 AM EST) Amylase, Peritoneal Fluid 38 [facility] Comment:Units: U/LThe refere nce range and other method performancespecifications have not been established for this bodyfluid. The test result must be integrated into the clinicalcontext for interpretation.Testing performed at: [facility] [address] [place] [address] 04/28/2025 10:2 8 AM EST 04/28/2025 12:13 PM EST Generic External Data Provider LAB BODY FLUIDS A ND STOOLS ORDERABLES Final Result Performing Organization Address [facility] Co de Phone Number [facility] [address] [place] [phone] * Glucose Peritoneal Fluid (04/28/2025 10:28 AM EST) Glucose, Peritoneal Fluid <2 [facility] Comment:Units: MG/DLThe refe rence range and other method performancespecifications have not been established for this bodyfluid. The test result must be integrated into the clinicalcontext for interpretation.Testing performed at: [facility] [address] [address] 04/28/2025 10:2 8 AM EST 04/28/2025 12:13 PM EST [employer] External Data Provider LAB BODY FLUIDS A ND STOOLS ORDERABLES Final Result Performing Organization Address [facility] Co de Phone Number [facility] [address] [place] [phone] * Albumin Peritoneal Fluid (04/28/2025 10:28 AM EST) Albumin Peritoneal Fluid 1.0 [facility] Comment:Units: GM/DLThe refe rence range and other method performancespecifications have not been established for this bodyfluid. The test result must be integrated into the clinicalcontext for interpretation.Testing performed at: [facility] [address] [place] [address] 04/28/2025 10:2 8 AM EST 04/28/2025 12:13 PM EST Generic External Data Provider LAB BODY FLUIDS A ND STOOLS ORDERABLES Final Result Performing Organization Address [facility] Co de Phone Number [facility] [address] [place] [phone] * Other Reference Test - Misc (04/28/2025 10:28 AM EST) Other Ref Test Misc SEE NOTE [facility] Comment:See scanned report i n EMR 04/28/2025 10:2 8 AM EST 04/28/2025 12:13 PM EST Narrative [facility] - 04/29/2025 7:27 AM EST bilirubin level for intraabdominal fluid Generic External Data Provider LAB BLOOD ORDERAB LES Final Result Performing Organization Address [facility] de Phone Number [facility] [address] [place] [phone] * Creatinine, body fluid (04/28/2025 10:28 AM EST) Creatinine Peritoneal Fluid 1.3 [facility] Comment:Units: MG/DLThe refe rence range and other method performancespecifications have not been established for this bodyfluid. The test result must be integrated into the clinicalcontext for interpretation.Testing performed at: [facility] [address] [place] [address] 04/28/2025 10:2 8 AM EST 04/28/2025 12:13 PM EST Generic External Data Provider LAB BODY FLUIDS A ND STOOLS ORDERABLES Final Result Performing Organization Address [facility] Co de Phone Number [facility] [address] [place] [phone] * Gross and Microscopic Level 2 (04/06/2025 11:22 AM EDT) 04/06/2025 11:2 2 AM EDT 04/06/2025 1:50 PM EDT [facility] - 04/09/2025 10:21 AM EDT ----- ------- Name: Aurora Ferrara Age/Sex: 44/F : 1980 Unit#: [id number] Attend Dr: Kashmir Freeman MD Re04/06/[address] [facility] Location: [facility] Disch: ----- ------- SPEC : [id number] RECD: 04/06/25 STATUS: NELI JOHN NUM: [id number] ROYCE: 04/06/25 [facility] DR: Kashmir Freeman MD ENTERED: 04/06/256 SP TYPE: Surgical OTHR DR: TSAN MARKS Maty ORDERED: Gross Micro L2, Gross [...] fibrofatty subcutaneous soft tissue without discrete abnormality. Board Liner Operator sections are submitted in cassettes A1 [...] developed and their performance characteristics determined by [facility]. They have not been cleared [...] Aurora Ferrara Age/Sex: 44/F : 1980 Unit#: [id number] Attend Dr: Kashmir Freeman MD Re04/06/25 Status: [facility] Location: [facility] Disch: ----- ------- SPEC : [id number] RECD: 04/06/258309 STATUS: NELI JOHN NUM: [id number] ROYCE: 04/06/251122 SUBM DR: Kashmir Freeman MD ENTERED: 04/06/25-1334 SP TYPE: Surgical OTHR DR: STAN MARKS CNM ORDERED: Gross Micro L2, Gross Micro L3 Copies To: Kashmir Freeman MD [facility] [address] [place] [id number] STAN MARKS CNM [facility] [address] [place] [address] ----- ------- Signed (signature on file) Katharina Duron MD 04/09/25 1021 ----- ------- END OF REPORT us Generic External Data Provider LAB CYTOLOGY HOLLY CHILD Final Result [facility] [address] [place] [address] [phone] * Partial Thromboplastin Time, Activated (APTT) (04/02/2025 1:27 PM EDT) Partial Thromboplastin Time 33.6 26.7 - 34.1 SEC [facility] 04/02/2025 1:27 PM EDT 04/02/2025 1:47 PM EDT Generic External Data Provider LAB BLOOD ORDERAB LES Final Result Performing Organization Address [facility]/ZIP Co de Phone Number [facility] [address] [place] [phone] * (ABNORMAL) Prothrombin Time-INR (04/02/2025 1:27 PM EDT) Prothrombin Time 14.0(H) 10.9 - 12.4 SEC [facility] INTERNATIONAL NORM RATIO 1.2(H) 0.9 - 1.1 [facility] Comment:INTERNATIONAL NORMAL IZED RATIO (INR) [...] ORDERAB LES Final Result Performing Organization Address [facility] Co de Phone Number [facility] [address] [place] [phone] * Type and screen (04/02/2025 1:27 PM EDT) Blood Type ON [facility] Antibody Screen NEGATIVE [facility] 04/02/2025 1:27 PM EDT 04/02/2025 1:40 PM EDT Narrative [facility] - 04/02/2025 2:20 PM EDT WITNESSED BY CAROLINA.Spec expiration changed by JIMMY on 04/02/25Reason: PAT SSSNURSING:Call Blood Bank (ext. [phone]) to band patient on admission.Type and Screen in effect until 2300 on 04/06/25. us Generic External Data Provider LAB BLOOD BANK TE ST ORDERABLES Final Result [facility] [address] [place] [address] [phone] * (ABNORMAL) Comprehensive Metabolic Panel (04/02/2025 1:27 PM EDT) Sodium 141 135 - 145 mmol/L [facility] Potassium 3.5 3.3 - 5.1 mmol/L [facility] Chloride 106 96 - 108 mmol/L [facility] Carbon Dioxide 27 22 - 29 mmol/L [facility] Anion Gap 12 12 - 20 [facility] Urea Nitrogen (BUN) 17(H) 9 - 16 mg/dL [facility] Creatinine, Serum 0.51 0.5 - 1.4 mg/dL [facility] Creatinine Clr Calc Pharmacy 135.2 [facility] Comment:Provided height and weight: 163.83 cm,70.125 kg.eGFR (calculated from the MDRD study equation) and eCrCl(calculated from the Cockcroft-Gault equation) are based ondifferent parameters and may not yield comparable results.If eCrCl result is absurd, please check patient'sheight/weight. Estimated Glomerular Filt Rate >60 [facility] Comment:Chronic Kidney Disea se: Estimated GFR < 60 mL/min/1.87k8Daezsk Kidney Disease: Estimated GFR < 15 mL/min/1.73m2 Glucose 78 60 - 115 mg/dL [facility] Calcium 9.2 8.4 - 10.2 mg/dL [facility] Bilirubin, Total 0.7 0.0 - 1.0 mg/dL [facility] Aspartate Amino Transferase 25 5 - 31 U/L [facility] Alanine Aminotransferase 24 0 - 31 U/L [facility] Total Protein 6.9 6.5 - 8.0 g/dL [facility] Albumin Level 4.5 3.5 - 5.0 g/dL [facility] Alkaline Phosphatase 72 39 - 117 U/L [facility] 04/02/2025 1:27 PM EDT 04/02/2025 2:14 PM EDT us Generic External Data Provider LAB BLOOD ORDERAB LES Final Result [facility] [address] [place] [address] [phone] * BI US Breast Limited Right (01/22/2025 11:06 AM EDT) Anatomical Region Laterality Modality Breast Right Ultrasound 01/22/2025 11:0 6 AM EDT Narrative 01/22/2025 11:38 AM EDT [facility] [address] [place] [address] Ultrasound Report Signed Patient: Aurora Ferrara MR#: [id number] : 1980 Acct:[id number] Age/Sex: 44 / F ADM Date: 01/22/25 Loc: HO.MAMMO Attending Dr: Stan Marks CNM Ordering Physician: STAN MARKS CNM Date of Service: 01/22/25 Procedure(s): US breast RT limited Accession Number(s): [id number] cc: STAN MARKS CNM EXAMINATIONS: 1. MM [...] 01/22/25 1135 DD/ 1106 TD/TT: 01/22/25 1120 Candy Spreader: Procedure Note Donotuseinterpreter, Image - [facility]22/2025 [facility] [address] [place] [address] Ultrasound Report Signed Patient: Aurora Ferrara [facility]#: [id number] : 1980Acct:[id number] Age/Sex: 44 / FADM Date: 01/22/25 Loc: HO.MAMMO Attending Dr: Stan Marks CNM Ordering Physician: STAN MARKS CNM Date of Service: 01/22/25 Procedure(s): US breast RT limited Accession Number(s): [id number] cc: STAN MARKS CNM EXAMINATIONS: 1. MM [...] 01/22/25 1135 DD/ 1106 TD/TT: 01/22/25 1120 Candy Spreader: us Stan Marks CNM IMG US PROCEDURES Final R esult * HPV DNA, Low/High Risk (01/05/2025 2:20 PM EDT) HPV High Risk Negative Negative [facility] HPV Genotype 16 Negative Negative [facility] HPV Genotype 18 Negative Negative [facility] Comment:HPV testing performe d at [facility] (CLIA#[id number]), [address] [place] [phone].Testing for HPV was performed using the [employer] [...] EDT 01/06/2025 7:35 AM EDT Stan Marks [facility] BLOOD ORDERABLES Delphine dillard Result [facility] [address] [place] [phone] * Pap Smear (01/05/2025 2:20 PM EDT) Swab Cervix uteri structure / Unknown 01/05/2025 2:20 PM EDT 01/06/2025 7:35 AM EDT Narrative [facility] - 01/19/2025 8:59 AM EDT ----- ------- Name: Aurora Ferrara Age/Sex: 44/F : 1980 Unit#: [id number] Attend Dr: STAN MARKS CNM Re01/05/25 Status: DEP REF Location: [facility] Disch: ----- ------- SPEC : [id number] RECD: 01/06/25 STATUS: NELI JOHN NUM: [id number] ROYCE: 01/05/25 [facility] DR: STAN MARKS CNM ENTERED: 01/06/25 SP [...] and HPV testing will be performed at [facility] (CLIA #[id number]), [address] [place] [address]. Testing for HPV was performed using the [...] detected. All professional services are performed by [facility] ([address] [place] [address], [place] [id number]; ; CLIA #[id number]). The PAP Test is a screening procedure with the inherent possibility of both false negative and false positive results. Results should be interpreted in the context of historic and current clinical findings. Reliability of the PAP Test is enhanced by performing the test on a regular repetitive basis. CONTINUED ON NEXT PAGE ----- ------- Name: Aurora Ferrara Age/Sex: 44/F : 1980 Unit#: [id number] Attend Dr: STAN MARKS CNM Re01/05/25 Status: [facility] REF Location: [facility] Disch: ----- ------- SPEC : [id number] RECD: 01/06/25 STATUS: NELI JOHN NUM: [id number] ROYCE: 01/05/25-1420 [facility] DR: STAN MARKS CNM ENTERED: 01/06/25 SP TYPE: Pap Kamini HURST DR: ORDERED: Pap Smear ----- ------- Signed (signature on file) KYRA Edwards (ASCP) 01/19/25 0859 ----- ------- END OF REPORT Stan Marks [facility] CYTOLOGY ORDERABLES F inal Result Performing Organization Address City/[facility] Co de Phone Number [facility] [address] [place] [phone] * Lipid Panel, Standard (11/13/2024 9:53 AM EDT) Triglycerides 46 <150 mg/dL [facility] Comment:Desirable Triglyceri de: less than 150 mg/dLBorderline High Triglyceride 150-199 mg/dLHigh Triglyceride: 200-499 mg/dLVery High Triglyceride: greater than or equal to 5OO mg/dL Cholesterol 172 <200 mg/dL [facility] Comment:Desirable Cholestero l: less than 200 mg/dLBorderline High Cholesterol: 200-239 mg/dLHigh Cholesterol: greater than 239 mg/dL LDL Cholesterol Calculated 94 <100 mg/dL [facility] Comment:Desirable LDL: less than 100 mg/dLNear Optimal/Above Optimal LDL: 110- 129 mg/dLBorderline High LDL: 130-159 mg/dLHigh LDL: 160-189 mg/dLVery High LDL: greater than or equal to 190 mg/dL HDL Cholesterol 69 >40 mg/dL [facility] Comment:Desirable HDL: great er than 40 mg/dL Note: This HDL assay may give artificially low results in patients with liver disease. 11/13/2024 9:53 AM EDT 11/13/2024 9:53 AM EDT Generic External Data Provider LAB BLOOD ORDERAB LES Final Result [facility] [address] [place] [phone] [phone] * Hepatitis C Antibody with Reflex to HCV, RNA, Quantitative, Real-Time PCR (04/09/2024 12:15 PM EDT) Hepatitis C Antibody Nonreactive Nonreactive [facility] Comment:Antibodies to HCV no t detected; does not exclude early acuteHCV infection. Blood Venous blood specimen / Unknown 04/09/2024 12:15 PM EDT 04/09/2024 1:17 PM EDT us Magaly Maldonado MD LAB BLOOD ORDERABLES Final Result Performing Organization Address [facility] de Phone Number [facility] [address] [place] [phone] * HIV-1/2 Antigen and Antibodies, Fourth Generation, with Reflexes (04/09/2024 12:15 PM EDT) Pathologist [facility] HIV AB/AG Nonreactive Nonreactive [facility] Comment:HIV-1 p24 Ag and/or HIV-1/HIV-2 Ab not detected.A test result that is nonreactive does not exclude thepossibility of exposure to or infection with HIV-1 and/orHIV-2. Nonreactive results in this assay for individualswith prior exposure to HIV-1 and/or HIV-2 may be due toantigen and antibody levels that are below the limit ofdetection of this assay.[employer] HIV Ag/Ab Combo assay result andsupplemental assay results should be interpreted inconjunction with the patient's clinical presentation,history and other laboratory results. If the results areinconsistent with clinical evidence, additional testing issuggested to confirm the result. Blood Venous blood specimen / Unknown 04/09/2024 12:15 PM EDT 04/09/2024 1:17 PM EDT us Magaly Maldonado MD LAB BLOOD ORDERABLES Final Result [facility] [address] [place] [phone] from Last 3 Months or Most Recently Relevant to Health Maintenance Insurance [facility] C3 Care Teams Health And Safety Trainer Relationship Specialty Start Date End Date Magaly Mcrae MD [address] [place] [phone] PCP - General Family Medicine 02/19/18 Anne Marie Reza Police MatronMedical Geneticist 04/14/25
== END 2025-06-07 13:06 | disposition home or self-care (01) ==
LOC: HO.HBS 11:36
PROVIDERS: PCP Advanced Practice Midwife; Visit Provider Nurse Practitioner
DX: Z71.3 Dietary counseling and surveillance (principal); Z98.890 Other specified postprocedural states
CPT/HCPCS: 99024

== ENCOUNTER → 2025-06-07 11:35 | Outpatient (BNVA) | payer MEDICAID, SELFPAY | PROVIDERS: PCP Advanced Practice Midwife; Visit Provider Nurse Practitioner | DX: Z48.815 Encounter for surgical aftercare following surgery on the digestive system (principal); Z98.890 Other specified postprocedural states; Z98.84 Bariatric surgery status | CPT/HCPCS: 99212 ==